=== PATIENT | female | born 1950 | race Hispanic/Latino ===

== ENCOUNTER 2016-09-15 10:48 | Observation (INO) | payer MEDICARE ==
[2016-09-15 10:49] VITALS: BMI 21.6
--- NOTE | 2016-09-15 11:18 | ED PDOC ---
Arrival/HPI - General Chief Complaint: Abnormal Labs Time Seen by Provider: 09/15/16 11:04 Historian: Patient - History of Present Illness Narrative History of Present Illness (Text): 09/15/16 11:17 A 66 year old female was sent into the emergency department by PMD for low potassium levels. Patient reports she received a call from her PMD's office this morning who instructed her to come in to the emergency room for further evaluation. Contrary to triages note patient denies any dizziness. She notes feeling dizzy at times but currently denies any complaints or discomfort. Patient denies any fever, chills, nausea, vomiting, diarrhea, abdominal pain, chest pain, shortness of breath or any other complaints. Time/Duration: Other (This morning) Context: Home Past Medical History - Provider Review Nursing Documentation Reviewed: Yes - Infectious Disease Hx of Infectious Diseases: None - Tetanus Immunization Tetanus Immunization: Unknown - Past Medical History Past Medical History: Non-Contributing - Cardiac Hx Cardiac Disorders: Yes Hx Hypertension: Yes - Pulmonary Hx Respiratory Disorders: No - Neurological Hx Neurological Disorder: No - HEENT Hx HEENT Disorder: Yes (BLURRY VISION) Hx Glaucoma: Yes (Right eye; family questions both?) - Renal Hx Renal Disorder: No - Endocrine/Metabolic Hx Endocrine Disorders: Yes Hx Diabetes Mellitus Type 2: Yes Hx Hypothyroidism: Yes - Hematological/Oncological Hx Blood Disorders: No Hx Cancer: No - Integumentary Hx Dermatological Disorder: No - Musculoskeletal/Rheumatological Hx Musculoskeletal Disorders: Yes Hx Falls: Yes Hx Unsteady Gait: Yes (CANE) Other/Comment: Last fell about 4 months ago. - Gastrointestinal Hx Gastrointestinal Disorders: Yes Hx Gastroesophageal Reflux: Yes - Genitourinary/Gynecological Hx Genitourinary Disorders: No - Psychiatric Hx Psychophysiologic Disorder: No Hx Substance Use: No - Past Surgical History Past Surgical History: No Previous - Surgical History Hx Section: Yes - Anesthesia Hx Anesthesia Reactions: No - Suicidal Assessment Feels Threatened In Home Enviroment: No Family/Social History - Physician Review Nursing Documentation Reviewed: Yes Family/Social History: No Known Family HX Smoking Status: Never Smoked Hx Alcohol Use: No Hx Substance Use: No Hx Substance Use Treatment: No Allergies/Home Meds Allergies/Adverse Reactions: Allergies No Known Allergies Allergy (Verified 09/15/16 10:57) Home Medications: Home Meds Medication Instructions Recorded Confirmed Levothyroxine [Synthroid] 50 mcg PO DAILY 03/09/15 03/13/15 Physical Exam - Physical Exam Narrative Physical Exam (Text): - Review of Systems Constitutional: Normal. absent: Fatigue, Weight Change, Fevers Eyes: Normal ENT: Normal Respiratory: Normal absent: SOB, Cough, Sputum Cardiovascular: Normal absent: Chest pain, Palpitations, Syncope Gastrointestinal: Normal absent: Abdominal pain, Diarrhea, Nausea, Vomiting Genitourinary: Normal. absent: Dysuria, Frequency, Hematuria Musculoskeletal: Normal. absent: Arthralgias, Back Pain, Neck Pain Skin: Normal Neurological: Normal absent: Focal Weakness Endocrine: Normal Hemo/Lymphatic: Normal Psychiatric: Normal - Physical exam Patient appears age appropriate, speaking full sentences without difficulty - Systems Exam Head: Present: Atraumatic, Normocephalic Pupils: Present: PERRL Extraocular Muscles: Present: EOMI Conjunctiva: Present: Normal Mouth: Present: Moist Mucous Membranes Neck: Present: Normal Range of Motion. No: MIDLINE TENDERNESS, Paraspinal Tenderness Respiratory/Chest: Present: Clear to Auscultation, Good Air Exchange. No: Respiratory Distress, Accessory Muscle Use, Tachypnic Cardiovascular: Present: Regular Rate and Rhythm, Normal S1, S2, Peripheral Pulses Present. No: Murmurs Abdomen: Present: Normal Bowel Sounds, No: Tenderness, Peritoneal Signs, Rebound, Guarding, Distention Back: Present: Normal Inspection. No: Midline Tenderness, Paraspinal Tenderness Upper Extremity: Present: Normal Inspection. No: Cyanosis, Edema Lower Extremity: Present: Normal Inspection. No: Edema Neurological: Present: GCS=15, Speech Normal, cranial nerves II through XII fully intact with no cerebellar abnormality, neuro-sensory fully intact. No focal neurological deficits. Skin: Present: Warm, Dry, Normal Color. No: Rashes Lymphatic: Present: OX3, NI, NC Psychiatric: Present: Alert, Oriented x 3, Normal Insight, Normal Concentration Vital Signs Reviewed: Yes Vital Signs Temp Pulse Resp BP Pulse Ox 09/15/16 13:05 53 L 18 150/81 100 09/15/16 12:17 53 L 18 140/71 100 09/15/16 11:57 51 L 18 84/37 L 100 09/15/16 10:57 98.9 F 61 18 98/41 L 100 Temperature: Afebrile Blood Pressure: Hypertensive Pulse: Regular Respiratory Rate: Normal Appearance: Positive for: Well-Appearing, Non-Toxic, Comfortable Pain Distress: None Mental Status: Positive for: Alert and Oriented X 3 Medical Decision Making ED Course and Treatment: 09/15/16 11:17 Impression: A 66 year old female sent in by PMD for low potassium levels. Patient denies any complaints. Physical exam unremarkable. Plan: -- Labs -- Reassess and disposition Progress Notes: 09/15/16 14:06 k 2.9, mg normal meds ordered pt in no distress dw dr. Galdamez, recommends admission for further w/u BP increased without intervention dw Dr. Fabby Napier, accepted pt to his service pt and aware of and agree with plan. EKG shows 52bpm, sinus melinda, irregular, no st-segment elevations. interpreted by me. - Lab Interpretations Lab Results: 09/15/16 11:15 09/15/16 11:55 Lab Results 09/15/16 11:55: Sodium 138, Potassium 2.9 L* D, Chloride 94 L, Carbon Dioxide 33 , Anion Gap 14, BUN 12, Creatinine 0.5, Est GFR ( Amer) > 60, Est GFR ( Non-Af Amer) > 60, Random Glucose 132 H, Calcium 9.1, Magnesium 1.7, Total Bilirubin 0.3, AST 20, ALT 19, Alkaline Phosphatase 75, Total Protein 7.7, Albumin 3.8, Globulin 3.9, Albumin/Globulin Ratio 1.0 L 09/15/16 11:15: WBC 3.9 L, RBC 4.37, Hgb 12.4, Hct 36.1, MCV 82.6, MCH 28.4, MCHC 34.3, RDW 12.1, Plt Count 224, MPV 9.3, Gran % 60.5, Lymph % (Auto) 30.9, [place] % (Auto) 6.8 H, Eos % (Auto) 0.8 L, Baso % (Auto) 1.0, Gran # 2.33, Lymph # 1.2, [place] # 0.3, Eos # 0.0, Baso # 0.04 I have reviewed the lab results: Yes - Medication Orders Current Medication Orders: Potassium Chloride (Potassium Chloride 20 Meq/100 Ml) 20 meq in 100 mls @ 50 mls/hr IVPB Q2H LAUREN Stop: 09/15/16 16:59 Last Admin: 09/15/16 13:16 Dose: 50 mls/hr Discontinued Medications Potassium Chloride (K-Dur 20 Meq Er Tab) 20 meq PO STAT STA Stop: 09/15/16 12:56 Last Admin: 09/15/16 13:16 Dose: 20 meq - Scribe Statement The provider has reviewed the documentation as recorded by the Scribe Fannie Robertson training under Miroslava De Provider Scribe Attestation: All medical record entries made by the Scribe were at my direction and personally dictated by me. I have reviewed the chart and agree that the record accurately reflects my personal performance of the history, physical exam, medical decision making, and the department course for this patient. I have also personally directed, reviewed, and agree with the discharge instructions and disposition. Disposition/Present on Arrival - Present on Arrival Any Indicators Present on Arrival: No History of DVT/PE: No History of Uncontrolled Diabetes: No Urinary Catheter: No History of Decub. Ulcer: No History Surgical Site Infection Following: None - Disposition Have Diagnosis and Disposition been Completed?: Yes Diagnosis: Hypokalemia Disposition: HOSPITALIZED Disposition Time: 14:06 Patient Plan: Observation Condition: STABLE Referrals: PCP,NO [Primary Care Provider] - Follow up with primary Forms: [employer] (Hungarian)
[2016-09-15 11:42] LABS: BASO # 0.04 K/mm3 (0.0-2.0); EOS % 0.8 % (1.5-5.0); GRAN # 2.33 (1.4-6.5); GRAN % 60.5 % (50.0-68.0); HEMOGLOBIN 12.4 gm/dL (12.0-16.0); LYMPH # 1.2 (1.2-3.4); LYMPH % 30.9 % (22.0-35.0); MEAN CELL VOLUME 82.6 fL (80.0-105.0); MEAN CORPUSCULAR HEMOGLOBIN 28.4 pg (25.0-35.0); MEAN CORPUSCULAR HGB CONC 34.3 g/dl (31.0-37.0); MEAN PLATELET VOLUME 9.3 fl (7.0-11.0); MONO # 0.3 (0.1-0.6); MONO % 6.8 % (1.0-6.0); PLATELET COUNT 224 10^3/uL (120.0-450.0); RBC 4.37 10^6/uL (3.5-6.1); RED CELL DISTRIBUTION WIDTH 12.1 % (11.5-14.5); WHITE BLOOD COUNT 3.9 10^3/ul (4.5-11.0)
[2016-09-15 12:43] LABS: ALBUMIN 3.8 g/dL (3.0-4.8); ALT/SGPT 19 U/L (7-56); AST/SGOT 20 U/L (15-39); BLOOD UREA NITROGEN 12 mg/dL (7-21); CALCIUM 9.1 mg/dL (8.4-10.5); GFR AFRICAN-AMERICAN > 60; GFR NON-AFRICAN AMERICAN > 60; MAGNESIUM 1.7 mg/dL (1.7-2.2)
[2016-09-15] MEDS ORDERED: Potassium Chloride 20 mEq ER Tab PO STA (12:55)
[2016-09-15] MEDS ORDERED: Morphine 4 mg/ml ISec IVP STA (14:53)
--- NOTE | 2016-09-15 15:24 | CARD ---
APPROVED REPORT EKG Measurement Heart [id number] <Conclusion> Sinus bradycardia with premature supraventricular complexes Otherwise normal ECG
[2016-09-15] MEDS ORDERED: Pneumococcal 23-Valent Vaccine IM ONE (17:53)
[2016-09-15] MEDS ORDERED: Potassium Chloride 20 mEq ER Tab PO ONE (20:15)
[2016-09-16 06:35] VITALS: RESP 18
[2016-09-16 07:42] LABS: MEAN CELL VOLUME 83.2 fL (80.0-105.0); MEAN CORPUSCULAR HGB CONC 33.6 g/dl (31.0-37.0); MEAN PLATELET VOLUME 9.1 fl (7.0-11.0); RBC 4.65 10^6/uL (3.5-6.1); RED CELL DISTRIBUTION WIDTH 12.4 % (11.5-14.5); WHITE BLOOD COUNT 4.3 10^3/ul (4.5-11.0)
[2016-09-16 08:02] LABS: ALBUMIN 4.1 g/dL (3.0-4.8); ALT/SGPT 23 U/L (7-56); AST/SGOT 23 U/L (15-39); BLOOD UREA NITROGEN 11 mg/dL (7-21); CALCIUM 9.3 mg/dL (8.4-10.5); GFR AFRICAN-AMERICAN > 60; GFR NON-AFRICAN AMERICAN > 60; MAGNESIUM 1.7 mg/dL (1.7-2.2)
[2016-09-16] MEDS ORDERED: Potassium Chloride 20 mEq ER Tab PO ONE (09:18)
[2016-09-16] MEDS ORDERED: Levothyroxine 50 MCG TAB PO SCH (10:00)
[2016-09-16 14:37] VITALS: BP 160/80; PULSE 65; TEMP 97.8; O2SAT 100
--- NOTE | 2016-09-16 20:18 | HP ---
HISTORY OF PRESENT ILLNESS: This is a 66-year-old woman who is coming to the hospital with complains of low potassium. She had seen her primary doctor Dr. Galdamez. She has been having low potassium. She denies any chest pain. No shortness of breath. No nausea, no vomiting. No fever, headaches or chills. No dysuria or frequency. She was given potassium in the ER. Last night she was given oral potassium and she had refused and looking at her potassium levels she has fairly normal potassium level over the last 2 years except in 08/2014 where her levels were mildly low. ALLERGIES: NO KNOWN DRUG ALLERGIES. HOME MEDICATIONS: Levothyroxine. PAST MEDICAL HISTORY: Hypothyroidism, glaucoma, diabetes type 2, dyslipidemia and hypertension. SOCIAL HISTORY: She denies smoking, drinking or drugs. In the past, she has been a smoker. FAMILY HISTORY: Noncontributory. PHYSICAL EXAMINATION: VITAL SIGNS: Temperature is 97.9, pulse of 47 to 55, blood pressure is 136/72, respirations 18, and O2 saturation 94%. Height 5 feet 9. Weight is 98 pounds. BMI is 14.5. GENERAL: The patient is lying in bed, flat, and in no apparent distress. HEAD AND NECK EXAM: Atraumatic, normocephalic. Conjunctivae are pink. Throat is clear and mouth with moist mucosa. Oropharynx is benign. EYES: Extraocular movements are intact. PERRLA. NECK: Supple. No JVD, thyromegaly, or adenopathy. No bruits. HEART: S1 and S2 regular rate and rhythm. No murmurs, rubs, or gallops. LUNGS: Clear to auscultation bilaterally. No wheezing, rales, or rhonchi appreciated. No retractions on exam. ABDOMEN: Soft, nontender, and nondistended. Bowel sounds are positive in all quadrants. No rebound. No hepatosplenomegaly. EXTREMITIES: No cyanosis, clubbing, or edema. NEUROLOGIC: No facial asymmetry. Tongue is midline. No uvula deviation. Power is 5/5 in upper extremity and 5/5 in lower extremity. Sensation is normal in upper extremities and lower extremities. PSYCHIATRIC: Awake, alert, oriented x3. No anxiety or depression symptoms. Good insight. Normal affect. GENITOURINARY: No CVA tenderness. VASCULAR: 2+ pulses in carotid and pedal pulses. SKIN: No erythema or abnormal nodules noted. SPINE: Normal curvature. LYMPHADENOPATHY: No anterior cervical or posterior cervical adenopathy. No inguinal adenopathy. LABORATORY DATA: Potassium is 2.9. EKG shows heart rate 52, sinus melinda, no ST changes. ASSESSMENT: 1. Hypokalemia. 2. Hypothyroidism. 3. Diabetes type 2. 4. Hypertension. PLAN: The patient is going to be given potassium placement as ordered. Urine studies have not been done. I did speak to the patient's nurse yesterday to do this urine studies. I spoke to the nurse again today. The patient was going to be given extra dose of potassium. She has no symptoms, I will discharge her home. I will follow up. She is going to be given potassium p.o. to take for the next 3 days with 40 mEq daily to normalized her potassium and follow up with Dr. Galdamez for repeat blood work. I do not suspect any renal issues as her kidney function is normal. She mostly likely has not been eating well and that can be a major region that potassium is low. Ramy Napier MD
== END 2016-09-16 14:09 | disposition home or self-care (01) ==
LOC: ED 10:48 → ERH 14:13 → INTOOBSV 14:13 → ERH 17:41 → 2RSO 18:52
PROVIDERS: ADMIT Internal Medicine Nephrology; ATTEND Internal Medicine Nephrology
DX: E87.6 Hypokalemia (principal); E03.9 Hypothyroidism, unspecified; E11.9 Type 2 diabetes mellitus without complications; E78.5 Hyperlipidemia, unspecified; H40.9 Unspecified glaucoma; I10 Essential (primary) hypertension; K21.9 Gastro-esophageal reflux disease without esophagitis; Z87.891 Personal history of nicotine dependence; H53.8 Other visual disturbances; R26.81 Unsteadiness on feet; R40.2412 Glasgow coma scale score 13-15, at arrival to emergency department; Z68.1 Body mass index [BMI] 19.9 or less, adult
CPT/HCPCS: 36415; 80053; 82948; 83735; 85025; 85027; 93005; 99285; G0378; J3480

== ENCOUNTER 2016-09-20 10:21 | Inpatient (IN) | payer MEDICARE, OTHER ==
[2016-09-20 10:35] VITALS: BMI 20.5
--- NOTE | 2016-09-20 11:13 | ED PDOC ---
Arrival/HPI - General Chief Complaint: Weakness/Neurological Deficit Time Seen by Provider: 09/20/16 10:26 Historian: Spouse - History of Present Illness Narrative History of Present Illness (Text): 09/20/16 10:53 A 66 year old female, whose past medical history includes diabetes mellitus, hypertension, hyperlipidemia, hypothyroidism, is brought in by her to the emergency department complaining of altered mental status since this morning. states, via Azeri balloon dipper:[id number], that he tried waking the patient up to take her medication and she would not move or answers questions. He states patient was behaving at baseline and able to ambulate today at 06:00. states this occurs very often, almost every morning. Patient has been seen in the Emergency department for similar symptoms in the past. Limited HPI and ROS. PMD: Dr. Galdamez Time/Duration: Other (In the morning earlier today) Symptom Onset: Sudden Symptom Course: Unchanged Activities at Onset: Rest, Light Context: Home Past Medical History - Provider Review Nursing Documentation Reviewed: Yes - Infectious Disease Hx of Infectious Diseases: None - Tetanus Immunization Tetanus Immunization: Unknown - Past Medical History Past Medical History: Non-Contributing - Cardiac Hx Cardiac Disorders: Yes Hx Hypertension: Yes - Pulmonary Hx Respiratory Disorders: No - Neurological Hx Neurological Disorder: No - HEENT Hx HEENT Disorder: Yes (BLURRY VISION) Hx Glaucoma: Yes (Right eye; family questions both?) - Renal Hx Renal Disorder: No - Endocrine/Metabolic Hx Endocrine Disorders: Yes Hx Diabetes Mellitus Type 2: Yes Hx Hypothyroidism: Yes - Hematological/Oncological Hx Blood Disorders: No Hx Cancer: No - Integumentary Hx Dermatological Disorder: Yes Other/Comment: scratch cote and scabs multiple skin discolorations to right upper and mid back and right arm c/o itchy skin, thick hard toenails, brown pigmentation to forehead and cheeks - Musculoskeletal/Rheumatological Hx Falls: Yes (past) - Gastrointestinal Hx Gastrointestinal Disorders: Yes Hx Gastroesophageal Reflux: Yes - Genitourinary/Gynecological Hx Genitourinary Disorders: No - Psychiatric Hx Bipolar Disorder: Yes Hx Depression: Yes Hx Substance Use: No - Past Surgical History Past Surgical History: No Previous - Surgical History Hx Section: Yes - Anesthesia Hx Anesthesia Reactions: No - Suicidal Assessment Feels Threatened In Home Enviroment: No Family/Social History - Physician Review Nursing Documentation Reviewed: Yes Family/Social History: No Known Family HX Smoking Status: Never Smoked Hx Alcohol Use: No Hx Substance Use: No Hx Substance Use Treatment: No Allergies/Home Meds Allergies/Adverse Reactions: Allergies No Known Allergies Allergy (Verified 09/20/16 10:40) Home Medications: Home Meds Medication Instructions Recorded Confirmed Levothyroxine [Synthroid] 50 mcg PO DAILY 03/09/15 09/20/16 Ergocalciferol (Vitamin D2) 50,000 unit PO QWK 09/20/16 09/20/16 [Vitamin D2] Potassium Chloride [Klor-Con M20] 40 meq PO DAILY 09/20/16 09/20/16 Review of Systems - Review of Systems Systems not reviewed;Unavailable: Altered Mental Status Physical Exam Vital Signs Reviewed: Yes Vital Signs Temp Pulse Resp BP Pulse Ox 09/20/16 10:33 98.7 F 67 19 173/83 H 100 Temperature: Afebrile Blood Pressure: Normal Pulse: Regular Respiratory Rate: Normal Appearance: Positive for: Well-Appearing, Non-Toxic, Comfortable Pain Distress: None Mental Status: Positive for: other (Not unresponsive, responsive to verbal stimuli) - Systems Exam Head: Present: Atraumatic, Normocephalic Pupils: Present: PERRL (PERRL, 1mm) Extroacular Muscles: Present: EOMI Conjunctiva: Present: Normal Mouth: Present: Moist Mucous Membranes Neck: Present: Normal Range of Motion Respiratory/Chest: Present: Clear to Auscultation, Good Air Exchange. No: Respiratory Distress, Accessory Muscle Use Cardiovascular: Present: Regular Rate and Rhythm, Normal S1, S2. No: Murmurs Abdomen: Present: Normal Bowel Sounds. No: Tenderness, Distention, Peritoneal Signs Back: Present: Normal Inspection Upper Extremity: Present: Normal Inspection. No: Cyanosis, Edema Lower Extremity: Present: Normal Inspection. No: Edema Neurological: Present: GCS=15, CN II-XII Intact Skin: Present: Warm, Dry, Normal Color. No: Rashes Psychiatric: Present: Other (Not unresponsive, responsive to verbal stimuli) Medical Decision Making ED Course and Treatment: 09/20/16 11:16 Impression: 66 year old female with altered mental status. Physical exam shows pupils reactive 1 mm; not unresponsive, responsive to painful stimuli, non -verbal. Differential Diagnosis included but are not limited to: Electrolyte abnormality vs. Psych/Locked-in syndrome vs. CAD Plan: -- EKG -- Brain CT -- Labs -- Blood culture -- Urine culture -- Urinalysis -- Reassess and disposition Prior Visits: Notes and results from previous visits were reviewed. Patient was last seen in the emergency department on 09/15/2016 for low potassium levels. Patient was admitted. Progress Notes: 09/20/16 11:22 Patient has woken up, states she has to urinate. Complaining of abdominal pain but will not answer anymore questions. Report Date : 09/20/2016 11:27:29 PROCEDURE: CT HEAD WITHOUT CONTRAST. Dictator : Celeste Hoover V. IMPRESSION: No interval intracranial hemorrhage mass effect or edema noted. Interval right ethmoidal sinus inflammatory changes - Lab Interpretations Lab Results: Lab Results 09/20/16 11:24: Urine Opiates Screen Negative, Urine Methadone Screen Negative, Ur Barbiturates Screen Negative, Ur Phencyclidine Scrn Negative, Ur Amphetamines Screen Negative, U Benzodiazepines Scrn Negative, U Oth Cocaine Metabols Negative, U Cannabinoids Screen Negative 09/20/16 11:24: Urine Color Straw, Urine Appearance Clear, Urine pH 6.5, Ur Specific [place] <= 1.005, Urine Protein Negative, Urine Glucose (UA) Negative, Urine Ketones Negative, Urine Blood Trace-lysed H, Urine Nitrate Negative, Urine Bilirubin Negative, Urine Urobilinogen 0.2, Ur Leukocyte Esterase Negative , Urine RBC Negative, Urine WBC Negative I have reviewed the lab results: Yes - RAD Interpretation Radiology Orders: 09/20/16 10:53 Brain [HEAD W/O CONTRAST] [CT] Stat - Medication Orders Current Medication Orders: Discontinued Medications Al Hydrox/Mg Hydrox/Simethicone (Maalox Plus 30 Ml) 30 ml PO STAT STA Stop: 09/20/16 13:49 Last Admin: 09/20/16 15:07 Dose: 30 ml Famotidine (Pepcid 20mg/50ml Premix) 20 mg in 50 mls @ 100 mls/hr IVPB STAT STA Stop: 09/20/16 12:03 Last Admin: 09/20/16 11:48 Dose: 100 mls/hr Morphine Sulfate (Morphine) 2 mg IVP STAT STA Stop: 09/20/16 13:49 Last Admin: 09/20/16 15:07 Dose: 2 mg Morphine Sulfate (Morphine) 4 mg IVP STAT STA Stop: 09/20/16 16:40 Ondansetron HCl (Zofran Inj) 4 mg IVP STAT STA Stop: 09/20/16 11:35 Last Admin: 09/20/16 11:48 Dose: 4 mg ED OBSERVATION Date of observation admission: 09/20/16 Time of observation admission: 11:30 - Observation admission statement Patient is being placed in observation because:: Altered mental status and abdominal pain. - Goals of Observation Goals of observation are:: Monitor and treat patient's symptoms - Progress Note Progress Note: 09/20/16 11:30 Patient brought in for altered mental status. Patient began complaining of abdominal pain. 09/20/16 13:50 Trailer Mechanic [id number] via audio tv. Patient is now AAOx3. She states that she feels like she has to burp but can't and has epigatric abdominal pain. No fever. She doesn't want to discuss why she couldn't talk in the morning. No back pain. As per she gets this abdominal pain all the time. Morphine IV and Maalox ordered. 09/20/16 15:39 EKG: NSR at [address] No [address] elevation. Nl intervals. 09/20/16 16:41 Patient continues to feel a gastric reflux burning feeling she states. Abdomen soft and not tender. Morphine ordered. Discussed case with Dr. Castellanos who will place her under his service. Case discussed with [facility] who will not admit her for Psych. - Scribe Statement The provider has reviewed the documentation as recorded by the Raul Lo Provider Scribe Attestation: All medical record entries made by the Susanaibtyson were at my direction and personally dictated by me. I have reviewed the chart and agree that the record accurately reflects my personal performance of the history, physical exam, medical decision making, and the department course for this patient. I have also personally directed, reviewed, and agree with the discharge instructions and disposition. Disposition/Present on Arrival - Present on Arrival Any Indicators Present on Arrival: No History of DVT/PE: No History of Uncontrolled Diabetes: No Urinary Catheter: No History of Decub. Ulcer: No History Surgical Site Infection Following: None - Disposition Have Diagnosis and Disposition been Completed?: Yes Diagnosis: Gastroparesis Disposition: HOSPITALIZED Disposition Time: 11:30 Patient Plan: Observation Condition: FAIR
--- NOTE | 2016-09-20 11:28 | CT ---
PROCEDURE: CT HEAD WITHOUT CONTRAST. HISTORY: ams r/o ich COMPARISON: CT head 07/23/2015 TECHNIQUE: Axial computed tomography images were obtained through the head/brain without intravenous contrast. Radiation dose: Total exam DLP = 689 mGy-cm. This CT exam was performed using one or more of the following dose reduction techniques: Automated exposure control, adjustment of the mA and/or kV according to patient size, and/or use of iterative reconstruction technique. FINDINGS: HEMORRHAGE: No intracranial hemorrhage. BRAIN: No mass effect or edema. The mild prominence to the cerebral sulci of ventricles consistent with generalized cerebral atrophy is similar in appearance. A tiny lacunar infarct left basal ganglionic is similar. VENTRICLES: Unremarkable. No hydrocephalus. CALVARIUM: Unremarkable. PARANASAL SINUSES: Interval increased right mid and anterior ethmoidal sinus inflammatory changes. MASTOID AIR CELLS: The prior poorly aerated -mostly sclerotic appearing mastoid air cells appear similar OTHER FINDINGS: None. IMPRESSION: No interval intracranial hemorrhage mass effect or edema noted Interval right ethmoidal sinus inflammatory changes
[2016-09-20 11:31] LABS: PH,URINE 6.5 (4.7-8.0); URINE BILIRUBIN NEGATIVE (NEGATIVE); URINE BLOOD TRACE-LYSED (NEGATIVE); URINE GLUCOSE (UA) NEGATIVE (NEGATIVE); URINE LEUKOCYTE ESTERASE NEGATIVE Leu/uL (NEGATIVE); URINE NITRATE NEGATIVE (NEGATIVE); URINE PROTEIN NEGATIVE mg/dL (<30 mg/dL); URINE UROBILINOGEN 0.2 E.U./dL (<1 E.U./dL)
[2016-09-20] MEDS ORDERED: Famotidine 20mg/50ml 20 MG/50 ML BAG IVPB STA (11:34)
[2016-09-20 11:35] LABS: URINE APPEARANCE CLEAR (CLEAR); URINE COLOR STRAW (YELLOW)
[2016-09-20 11:48] LABS: URINE RBC NEGATIVE /hpf (0-2); URINE WBC NEGATIVE /hpf (0-6)
[2016-09-20 11:50] LABS: BARBITURATES, UR NEGATIVE (NEGATIVE); BENZODIAZEPINES, UR NEGATIVE (NEGATIVE); OPIATES, UR NEGATIVE (NEGATIVE); PHENCYCLIDINE, UR NEGATIVE (NEGATIVE)
[2016-09-20 11:51] LABS: BASO # 0.05 K/mm3 (0.0-2.0); BASO % 1.3 % (0.0-3.0); EOS # 0.1 (0.0-0.7); EOS % 1.6 % (1.5-5.0); GRAN # 2.47 (1.4-6.5); GRAN % 64.3 % (50.0-68.0); HEMOGLOBIN 12.8 gm/dL (12.0-16.0); MEAN CELL VOLUME 84.4 fL (80.0-105.0); MEAN CORPUSCULAR HEMOGLOBIN 28.1 pg (25.0-35.0); MEAN CORPUSCULAR HGB CONC 33.3 g/dl (31.0-37.0); MEAN PLATELET VOLUME 11.5 fl (7.0-11.0); MONO # 0.3 (0.1-0.6); MONO % 7.8 % (1.0-6.0); PLATELET COUNT 200 10^3/uL (120.0-450.0); RBC 4.55 10^6/uL (3.5-6.1); RED CELL DISTRIBUTION WIDTH 12.4 % (11.5-14.5); WHITE BLOOD COUNT 3.8 10^3/ul (4.5-11.0)
[2016-09-20 12:00] LABS: SALICYLATE < 1 mg/dL (2.0-20.0)
[2016-09-20 12:29] LABS: ACETAMINOPHEN < 10.0 ug/ml (10.0-20.0)
[2016-09-20] MEDS ORDERED: Alum-Mag Hydrox-Simethicone Susp (30 mL) PO STA (13:48)
[2016-09-20] MEDS ORDERED: Morphine 2 mg/ml ISec IVP STA (13:48)
[2016-09-20 15:05] LABS: VENOUS BLOOD GAS BASE EXCESS 2.4 mmol/L (0.0-2.0); VENOUS BLOOD GAS PO2 36 mm/Hg (30-55); VENOUS BLOOD PH 7.28 (7.32-7.43)
[2016-09-20 15:06] LABS: ALB/GLOB RATIO 1.1 (1.1-1.8); ALBUMIN 4.6 g/dL (3.0-4.8); ALT/SGPT 22 U/L (7-56); AST/SGOT 24 U/L (15-39); BLOOD UREA NITROGEN 11 mg/dL (7-21); CALCIUM 9.8 mg/dL (8.4-10.5); GFR AFRICAN-AMERICAN > 60; GFR NON-AFRICAN AMERICAN > 60; LIPASE 74 U/L (23-300); MAGNESIUM 1.6 mg/dL (1.7-2.2)
[2016-09-20 15:07] LABS: INR 1.08 (0.93-1.08); PARTIAL THROMBOPLASTIN TIME 28.7 Seconds (23.7-30.8); PROTHROMBIN TIME 11.7 Seconds (9.9-11.8)
[2016-09-20 15:17] LABS: TROPONIN I < 0.01 ng/mL
--- NOTE | 2016-09-20 15:31 | CARD ---
APPROVED REPORT EKG Measurement Heart [id number] SC 170P [id number] <Conclusion> Sinus rhythm with premature atrial complex Otherwise normal ECG
--- NOTE | 2016-09-20 15:56 | RAD ---
HISTORY: abd pain COMPARISON: 07/23/2015 FINDINGS: LUNGS: No active pulmonary disease. Study slightly rotated towards the left PLEURA: No significant pleural effusion identified, no pneumothorax apparent. CARDIOVASCULAR: Normal. OSSEOUS STRUCTURES: Thoracic spondylosis VISUALIZED UPPER ABDOMEN: Normal. OTHER FINDINGS: None. IMPRESSION: No active disease. No interval pathology noted
[2016-09-20] MEDS ORDERED: Morphine 4 mg/ml ISec IVP STA (16:39)
--- NOTE | 2016-09-20 18:08 | CT ---
PROCEDURE: CT Abdomen and Pelvis without Oral or IV contrast. HISTORY: abd pain COMPARISON: CT abdomen and pelvis with oral and IV contrast performed 10/27/15 TECHNIQUE: Contiguous axial images of the abdomen and pelvis. No oral or IV contrast administered. Coronal and Sagittal reformats generated and reviewed. Radiation dose: Total exam DLP = 194.90 mGy-cm. This CT exam was performed using one or more of the following dose reduction techniques: Automated exposure control, adjustment of the mA and/or kV according to patient size, and/or use of iterative reconstruction technique. FINDINGS: There is limited evaluation of the solid organs without the administration of IV contrast. LOWER THORAX: Scattered emphysematous changes. No visible consolidation, pleural effusion, or pneumothorax. Partially imaged trace pericardial effusion. LIVER: Unremarkable unenhanced appearance. GALLBLADDER AND BILE DUCTS: Unremarkable unenhanced appearance. PANCREAS: Unremarkable unenhanced appearance. SPLEEN: Unremarkable unenhanced appearance. ADRENALS: Unremarkable unenhanced appearance. KIDNEYS AND URETERS: No hydronephrosis or obstructing renal calculus. BLADDER: Distention of the urinary bladder. REPRODUCTIVE: Uterus is present. APPENDIX: The appendix appears within normal limits of caliber. No secondary signs of acute appendicitis. BOWEL: The stomach is nondistended. Lack of oral contrast limits evaluation for bowel pathology. The bowel loops appear within normal limits of caliber without evidence of intestinal obstruction. Moderate constipation. PERITONEUM: No significant free fluid. No definite free air. LYMPH NODES: No bulky lymphadenopathy identified. VASCULATURE: Atherosclerotic calcifications of the aorta. No aortic aneurysm. BONES: Degenerative changes. OTHER FINDINGS: None. IMPRESSION: Moderate constipation. Distended urinary bladder. Mild scattered emphysematous changes. Partially imaged trace pericardial effusion.
[2016-09-20] MEDS ORDERED: Pneumococcal 23-Valent Vaccine IM ONE (20:15)
[2016-09-20] MEDS: POLYETHYLENE GLYCOL 3350 17 GM/Dose PACKET PO SCH (21:49)
--- NOTE | 2016-09-21 07:15 | CP.PCM.HP ---
<Siria Mcclendon - Last Filed: 09/21/16 09:20> History of Present Illness - History of Present Illness History of Present Illness: CC: Not waking up Patient alka 66 y/o with pmh of htn, DM, hypothyroidism, major depressive disorder, anxiety brought in by her secondary to difficulty arousing the patient in the morning. Patient was at [facility] and was recently discharged after being treated for hypokalemia. Patient's spouse is currently not at beside, however patient is more awake and sitting at the edge of the bed. Patient states her brought her in because her was having difficulty waking her up in the morning. Patient states she was too tired to wake up. Patient is complaining of indigestion, and is complaining of dizziness. Patient admits to decreased in appetite and weight loss. Patient denies cp, sob, n.v.d, admits to abdominal pain, but denies dysurea. PMH: HTN, HLD, Hypothyroidism, major depressive disorder, anxiety. PSH: Denies Social: lives with spouse, denies alcohol, tobacco or illicit drug use. Present on Admission - Present on Admission Any Indicators Present on Admission: No History of DVT/PE: No History of Uncontrolled Diabetes: No Urinary Catheter: No Decubitus Ulcer Present: No Review of Systems - Review of Systems All systems: reviewed and no additional remarkable complaints except Review of Systems: 12 point ROS reviewed all negative except as stated in HPI. Past Patient History - Infectious Disease Hx of Infectious Diseases: None - Tetanus Immunizations Tetanus Immunization: Unknown - Past Social History Smoking Status: Never Smoked Alcohol: None Drugs: Denies Home Situation {Lives}: With Family - CARDIAC Hx Cardiac Disorders: Yes (bradycardia) Hx Hypercholesterolemia: Yes Hx Hypertension: Yes - PULMONARY Hx Respiratory Disorders: No - NEUROLOGICAL Hx Neurological Disorder: No - HEENT Hx HEENT Problems: Yes (BLURRY VISION) Hx Glaucoma: Yes (Right eye; family questions both?) - RENAL Hx Chronic Kidney Disease: No - ENDOCRINE/METABOLIC Hx Endocrine Disorders: Yes Hx Diabetes Mellitus Type 2: Yes Hx Hypothyroidism: Yes - HEMATOLOGICAL/ONCOLOGICAL Hx Blood Disorders: (hypokalemia) Hx Cancer: No - INTEGUMENTARY Hx Dermatological Problems: Yes Other/Comment: scratch cote and scabs multiple skin discolorations to right upper and mid back and right arm c/o itchy skin, thick hard toenails, brown pigmentation to forehead and cheeks - MUSCULOSKELETAL/RHEUMATOLOGICAL Hx Falls: No - GASTROINTESTINAL Hx Gastrointestinal Disorders: Yes Hx Gastroesophageal Reflux: Yes - GENITOURINARY/GYNECOLOGICAL Hx Genitourinary Disorders: No - PSYCHIATRIC Hx Substance Use: No - SURGICAL HISTORY Hx Surgeries: Yes (c section x2) - ANESTHESIA Hx Anesthesia Reactions: No Meds Allergies/Adverse Reactions: Allergies Allergy/AdvReac Type Severity Reaction Status Date / Time No Known Allergies Allergy Verified 09/20/16 10:40 Physical Exam - Constitutional Appears: No Acute Distress, Confused, Cachectic, Chronically Ill - Head Exam Head Exam: ATRAUMATIC, NORMAL INSPECTION, NORMOCEPHALIC - Eye Exam Eye Exam: EOMI, Normal appearance, PERRL. absent: Scleral icterus Pupil Exam: NORMAL ACCOMODATION, PERRL - ENT Exam ENT Exam: Mucous Membranes Dry - Neck Exam Neck exam: Positive for: Normal Inspection - Respiratory Exam Respiratory Exam: Clear to Auscultation Bilateral, NORMAL BREATHING PATTERN. absent: Rales, Rhonchi, Wheezes, Respiratory Distress, Stridor - Cardiovascular Exam Cardiovascular Exam: REGULAR RHYTHM, RRR, +S1, +S2. absent: Systolic Murmur - GI/Abdominal Exam GI & Abdominal Exam: Normal Bowel Sounds, Soft. absent: Distended, Firm, Rigid , Tenderness - Extremities Exam Extremities exam: Positive for: normal inspection. Negative for: pedal edema - Back Exam Back exam: NORMAL INSPECTION - Neurological Exam Neurological exam: Alert, Oriented x3 - Psychiatric Exam Psychiatric exam: Depressed Additional comments: Patient with labile emotion, crying when I approached the patient. - Skin Skin Exam: Dry, Warm Results - Vital Signs Recent Vital Signs: Last Vital Signs Temp 98.7 F 09/20/16 20:04 Pulse 67 09/20/16 20:04 Resp 19 09/20/16 20:04 BP 173/83 H 09/20/16 20:04 Pulse Ox 100 09/20/16 17:59 - Labs Result Diagrams: 09/20/16 11:30 09/20/16 14:50 Labs: Laboratory Results - last 24 hr 09/20/16 09/20/16 09/20/16 11:52 14:50 14:50 PT 11.7 INR 1.08 APTT 28.7 pO2 VBG pH VBG pCO2 VBG HCO3 VBG Total CO2 VBG O2 Sat (Calc) VBG Base Excess VBG Potassium Glucose Lactate FiO2 Sodium 137 Potassium 4.5 Chloride 95 L Carbon Dioxide 31 Anion Gap 16 BUN 11 Creatinine 0.5 Est GFR ( Amer) > 60 Est GFR (Non-Af Amer) > 60 POC Glucose (mg/dL) 141 H Random Glucose 128 H Calcium 9.8 Phosphorus 3.5 Magnesium 1.6 L Total Bilirubin 0.4 AST 24 ALT 22 Alkaline Phosphatase 89 Lactate Dehydrogenase 413 Total Creatine Kinase 64 Troponin I < 0.01 Total Protein 8.9 H Albumin 4.6 Globulin 4.3 Albumin/Globulin Ratio 1.1 Lipase 74 Venous Blood Potassium 09/20/16 15:00 PT INR APTT pO2 36 VBG pH 7.28 L VBG pCO2 66.0 H* VBG HCO3 31.0 H VBG Total CO2 33.0 H VBG O2 Sat (Calc) 68.7 H VBG Base Excess 2.4 H VBG Potassium 4.9 Glucose 131 H Lactate 1.5 FiO2 21.0 Sodium 148.0 Potassium Chloride 89.0 L Carbon Dioxide Anion Gap BUN Creatinine Est GFR ( Amer) Est GFR (Non-Af Amer) POC Glucose (mg/dL) Random Glucose Calcium Phosphorus Magnesium Total Bilirubin AST ALT Alkaline Phosphatase Lactate Dehydrogenase Total Creatine Kinase Troponin I Total Protein Albumin Globulin Albumin/Globulin Ratio Lipase Venous Blood Potassium 4.9 Assessment & Plan - Assessment and Plan (Free Text) Assessment: 1) 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 3) GERD 4) Constipation 5) Uncontrolled DM with episode of hypoglycemia 6) htn 7) HLD 8) Major depression/Anxiety Plan: CT head with no acute findings, CT abdo/pelvis with constipation, mild emphysema and distended bladder. Patient is more awake this AM, but with very labile emotion, h/o depression/anxiety noted, will need psych evaluation. Gi is consulted for chronic gerd despite chronic ppi use. Will hold metformin due to episodes of hypoglycemia, will obtain hgbA1C. ISS, and fingersticks AC/HS, mod carb controlled diet for DM. Patient with labile BP, will monitor off of meds. Will continue synthroid for hypothyroidism. Magnesium is being repleted. On miralax for constipation. On Pepcid for gerd. SCDs for DVT prophylaxis. Patient seen, examined, and case discussed with Dr Napier. - Date & Time Date: 09/21/16 Time: 07:40 <Ramy Napier S - Last Filed: 09/21/16 17:59> Results - Vital Signs Recent Vital Signs: Last Vital Signs Temp 97.3 F L 09/21/16 16:30 Pulse 57 L 09/21/16 16:30 Resp 20 09/21/16 16:30 BP 101/46 L 09/21/16 16:30 Pulse Ox 97 09/21/16 16:30 - Labs Result Diagrams: 09/20/16 11:30 09/20/16 14:50 Labs: Laboratory Results - last 24 hr 09/21/16 09/21/16 09/21/16 08:13 08:40 09:31 POC Glucose (mg/dL) 64 L 102 Hemoglobin A1c 6.1 Assessment & Plan - Assessment and Plan (Free Text) Plan: Pt seen and examined. Resident note reviewed and agree with. Will get psych evaluation. Old records and meds reviewed. Tried to call spouse and not able to speak to him and not able to leave a message. Will get GI evaluation as pt complains of acid reflux.
[2016-09-21] MEDS ORDERED: Insulin Lispro (humaLOG) LOW Coverage SC SCH (07:30)
[2016-09-21] MEDS: Levothyroxine 50 MCG TAB PO SCH (08:25)
[2016-09-21] MEDS: Magnesium Oxide 400 mg Tab UD PO SCH ×5 (09:34→17:11)
[2016-09-21] MEDS: POLYETHYLENE GLYCOL 3350 17 GM/Dose PACKET PO SCH ×2 (09:34→17:11)
[2016-09-21] MEDS: Insulin Reg-LOW-Coverage SC SCH ×2 (12:06→17:04)
--- NOTE | 2016-09-21 13:51 | CP.PCM.CON ---
History of Present Illness - History of Present Illness History of Present Illness: Seen and examined at bedside earlier today, request for consult is for GERD. HPI : This is a 66 year old female with a history of HTN, DM, GERD, major depressive disorder brought to the ER for difficulty in arousing the patient. The was not able to arouse the patient in the morning and brought in for further evaluation. The patient reports that she was tired at the time. Patient during admission complain of indigestion, decrease appetite. No N/V or abdominal pain. The patient last endoscopy was 03/[address] Bates for evaluation of Anemia and had no acute findings, biopsy was obtained to r/o H pylori and that was negative as well as for intestinal metaplasia. Also back in 08/2014 she c/o of dysphagia and esophagogram was negative. Denies any current dysphagia. Unsure of having a colonoscopy. She had a ct scan of the head and that was negative for hemorrhage or infarction. Ct scan of the A&P and that revealed moderate constipation, distend urinary blader and emphysematous changes. PMH: GERD, HTN, DM, Hypothyroidism, Major depression, Anxiety PSH: egd 03/2014, otherwise denies cardiac or abdominal sx Allergies: NKDA MEDS: reviewed as per APR FHX: noncontributory at this time ROS: systems reviewed with positive findings, see HPI Past Patient History - Infectious Disease Hx of Infectious Diseases: None - Tetanus Immunizations Tetanus Immunization: Unknown - Past Social History Smoking Status: Never Smoked Alcohol: None Drugs: Denies Home Situation {Lives}: With Family - CARDIAC Hx Cardiac Disorders: Yes (bradycardia) Hx Hypercholesterolemia: Yes Hx Hypertension: Yes - PULMONARY Hx Respiratory Disorders: No - NEUROLOGICAL Hx Neurological Disorder: No - HEENT Hx HEENT Problems: Yes (BLURRY VISION) Hx Glaucoma: Yes (Right eye; family questions both?) - RENAL Hx Chronic Kidney Disease: No - ENDOCRINE/METABOLIC Hx Endocrine Disorders: Yes Hx Diabetes Mellitus Type 2: Yes Hx Hypothyroidism: Yes - HEMATOLOGICAL/ONCOLOGICAL Hx Blood Disorders: (hypokalemia) Hx Cancer: No - INTEGUMENTARY Hx Dermatological Problems: Yes Other/Comment: scratch cote and scabs multiple skin discolorations to right upper and mid back and right arm c/o itchy skin, thick hard toenails, brown pigmentation to forehead and cheeks - MUSCULOSKELETAL/RHEUMATOLOGICAL Hx Falls: No - GASTROINTESTINAL Hx Gastrointestinal Disorders: Yes Hx Gastroesophageal Reflux: Yes - GENITOURINARY/GYNECOLOGICAL Hx Genitourinary Disorders: No - PSYCHIATRIC Hx Substance Use: No - SURGICAL HISTORY Hx Surgeries: Yes (c section x2) - ANESTHESIA Hx Anesthesia Reactions: No Meds Allergies/Adverse Reactions: Allergies Allergy/AdvReac Type Severity Reaction Status Date / Time No Known Allergies Allergy Verified 09/20/16 10:40 - Medications Medications: Current Medications Famotidine (Pepcid) 40 mg PO HS LAUREN Insulin Human Regular (Humulin R Low) 0 units SC ACHS LAUREN PRN Reason: Protocol Last Admin: 09/21/16 12:06 Dose: Not Given Levothyroxine Sodium (Synthroid) 50 mcg PO ACB [facility] Last Admin: 09/21/16 08:25 Dose: 50 mcg Magnesium Oxide (Mag-Ox) 400 mg PO TID [facility] Last Admin: 09/21/16 09:34 Dose: 400 mg Polyethylene Glycol (Miralax) 17 gm PO BID [facility] Last Admin: 09/21/16 09:34 Dose: 17 gm Physical Exam - Constitutional Appears: No Acute Distress, Cachectic - Head Exam Head Exam: NORMAL INSPECTION - Eye Exam Eye Exam: Normal appearance. absent: Scleral icterus - ENT Exam ENT Exam: Mucous Membranes Moist - Neck Exam Neck exam: Positive for: Normal Inspection - Respiratory Exam Respiratory Exam: Decreased Breath Sounds, Rhonchi, NORMAL BREATHING PATTERN. absent: Respiratory Distress - Cardiovascular Exam Cardiovascular Exam: +S1, +S2 - GI/Abdominal Exam GI & Abdominal Exam: Normal Bowel Sounds, Soft. absent: Guarding, Organomegaly , Rebound, Tenderness - Extremities Exam Extremities exam: Positive for: pedal pulses present. Negative for: calf tenderness, pedal edema - Neurological Exam Neurological exam: Alert, Oriented x3 - Skin Skin Exam: Dry, Warm Results - Vital Signs Recent Vital Signs: Last Vital Signs Temp 97.7 F 09/21/16 07:51 Pulse 57 L 09/21/16 07:51 Resp 20 09/21/16 07:51 BP 152/91 H 09/21/16 08:22 Pulse Ox 97 09/21/16 07:51 - Labs Result Diagrams: 09/20/16 11:30 09/20/16 14:50 Labs: Laboratory Results - last 24 hr 09/20/16 09/20/16 09/20/16 14:50 14:50 15:00 PT 11.7 INR 1.08 APTT 28.7 pO2 36 VBG pH 7.28 L VBG pCO2 66.0 H* VBG HCO3 31.0 H VBG Total CO2 33.0 H VBG O2 Sat (Calc) 68.7 H VBG Base Excess 2.4 H VBG Potassium 4.9 Glucose 131 H Lactate 1.5 FiO2 21.0 Sodium 137 148.0 Potassium 4.5 Chloride 95 L 89.0 L Carbon Dioxide 31 Anion Gap 16 BUN 11 Creatinine 0.5 Est GFR ( Amer) > 60 Est GFR (Non-Af Amer) > 60 POC Glucose (mg/dL) Random Glucose 128 H Calcium 9.8 Phosphorus 3.5 Magnesium 1.6 L Total Bilirubin 0.4 AST 24 ALT 22 Alkaline Phosphatase 89 Lactate Dehydrogenase 413 Total Creatine Kinase 64 Troponin I < 0.01 Total Protein 8.9 H Albumin 4.6 Globulin 4.3 Albumin/Globulin Ratio 1.1 Lipase 74 Venous Blood Potassium 4.9 09/21/16 09/21/16 08:13 08:40 PT INR APTT pO2 VBG pH VBG pCO2 VBG HCO3 VBG Total CO2 VBG O2 Sat (Calc) VBG Base Excess VBG Potassium Glucose Lactate FiO2 Sodium Potassium Chloride Carbon Dioxide Anion Gap BUN Creatinine Est GFR ( Amer) Est GFR (Non-Af Amer) POC Glucose (mg/dL) 64 L 102 Random Glucose Calcium Phosphorus Magnesium Total Bilirubin AST ALT Alkaline Phosphatase Lactate Dehydrogenase Total Creatine Kinase Troponin I Total Protein Albumin Globulin Albumin/Globulin Ratio Lipase Venous Blood Potassium Assessment & Plan - Assessment and Plan (Free Text) Assessment: ASSESSMENT: Altered Mental Status Chronic GERD Weight Loss Major depression Hypothyroidism HTN Constipation PLAN: change Pepcid to protonix 40 mg daily, will give dose before dinner and than will continue in the AM. continue diet as tolerated plan for EGD tomorrow NPO 12 midnight except meds continue Miralax BID psych FU Thank you for this consult and for allowing us to participate in your patient care, will make further recommendation based upon clinical course. Seen and examined w/ Dr. Patterson.
[2016-09-21] MEDS ORDERED: Pantoprazole 40 mg EC Tab PO ONE (16:00)
--- NOTE | 2016-09-21 19:57 | CON ---
HISTORY OF PRESENT ILLNESS: The patient is a 66-year-old [place] female with multiple medical problems including diabetes, hypertension, hyperlipidemia, hypothyroidism. The patient has also 2 psychiatric hospitalization for somatic delusions. The patient was admitted on the medical side for evaluation of change in mental status. The patient was found by her , not moving and not answering the questions, most likely the patient was in catatonic stage. The patient was admitted on the medical side, psych consult was called for evaluation of altered mental status. The patient was seen and examined, the patient is a [place] speaking and this quality analyst/technical writer utilized in demand our translation system, [employer] #[id number]. The patient presented to be well. The patient is aware of the medical issues, who was brought the patient to the hospital and was aware of the circumstances of her admission. The patient said "I was not moving, I could not feel myself". The patient reports that that right now she feels much better. The patient reports that she is not depressed. The patient adamantly denied thoughts of harming herself or others. The patient reports no anxiety symptoms. The denied hearing voices, denied seeing things. Medical team as well as long term care social worker raised concerns about possible emergency room. The patient seems to be controlling person. When the patient was asked how family treats her, the patient report that family treats her "bellissimo". The patient reported no abuse. The patient reported her "adores me". The patient reported that her daughter, who is with her also takes good care of her. The patient denied any physical, emotional or sexual abuse in her life. PAST PSYCHIATRIC HISTORY: As this quality analyst/technical writer mention above. The patient had history of being admitted to the psychiatric inpatient unit, most recently was in 2014. The patient has somatic delusions that she could not digest food. 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 VITAL SIGNS: Seems to be stable. Temperature 97.7, pulse is 57, blood pressure is 152/91, respiration 20, oxygen saturation is 97. MEDICATIONS: Reviewed. The patient is on insulin, Synthroid, magnesium oxide, Protonix, MiraLax. LABS: Reviewed. WBC is 3.8. Chemistry: Chloride 95. Urinalysis: Blood trace lysed. Toxicology negative for any substances. MENTAL STATUS EXAMINATION: The patient was alert and oriented. The patient knows the name of the hospital, knew what is the day today, day of the weeks. The patient has fair eye contact. Speech was kind of over productive may be related to the cultural because the patient is [place]. Mood described " I feel fine, I feel much better". Affect was full of range, mood congruent. Thought process was coherent and goal directed. Thought content the patient denied visual, auditory, or tactile hallucinations. Denies paranoid ideation. The patient denied both of her harming herself or others. The patient does not present to be psychotic or delusional and no signs of suicidal attempt. Insight and judgement fair. Impulses are well controlled. Collaterals were obtained from the nursing staff. The patient is compliant with the medication, at times anxious but overall presented well. IMPRESSION: Altered mental status could be related to the medical issue. The patient has diabetes. The patient also has history of psychogenic polydipsia. From the psychiatric standpoint, the patient seems to be stable. No signs of depression. No signs of psychosis. No signs of anxiety. PLAN: Continue current management. Continue current medications. The patient does not appear to be depressed or delusions or anxious. Reported to have fair appetite, but the patient does not big eater. The patient has good night sleep. In regards of abuse, the patient adamantly denied that anybody in her family abusing her. The patient reports that the family is treated her very well as well as her adores her. In meanwhile, continue current management. Should you have any questions give me a call back. Thank you very much for letting me participate in care of your patient. Bev Lopez MD
[2016-09-22] MEDS: Levothyroxine 50 MCG TAB PO SCH (05:48)
[2016-09-22] MEDS ORDERED: Pantoprazole 40 mg EC Tab PO SCH ×2 (06:00→07:30)
[2016-09-22 07:39] LABS: HEMOGLOBIN 11.7 gm/dL (12.0-16.0); MEAN CELL VOLUME 83.9 fL (80.0-105.0); MEAN CORPUSCULAR HEMOGLOBIN 28.2 pg (25.0-35.0); MEAN CORPUSCULAR HGB CONC 33.6 g/dl (31.0-37.0); MEAN PLATELET VOLUME 9.5 fl (7.0-11.0); RBC 4.15 10^6/uL (3.5-6.1); RED CELL DISTRIBUTION WIDTH 12.6 % (11.5-14.5); WHITE BLOOD COUNT 3.8 10^3/ul (4.5-11.0)
[2016-09-22 07:59] LABS: BLOOD UREA NITROGEN 22 mg/dL (7-21); CALCIUM 9.2 mg/dL (8.4-10.5); GFR AFRICAN-AMERICAN > 60; GFR NON-AFRICAN AMERICAN > 60
[2016-09-22] MEDS ORDERED: Dextrose 5%/0.45% NS 1,000 ML IV SCH (08:30)
[2016-09-22] MEDS: Insulin Reg-LOW-Coverage SC SCH ×4 (08:30→23:36)
[2016-09-22] MEDS: POLYETHYLENE GLYCOL 3350 17 GM/Dose PACKET PO SCH ×2 (09:32→19:05)
[2016-09-22] MEDS: Magnesium Oxide 400 mg Tab UD PO SCH ×3 (09:32→19:05)
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
[2016-09-22] MEDS ORDERED: Propofol 10 mg/ml Inj (20 ML) ONE (14:28)
[2016-09-22] MEDS ORDERED: Benzocaine/Butamben/Tetracai 14-2-2% TOP Spray TOP ONE (14:32)
--- NOTE | 2016-09-22 14:56 | CP.PCM.PCO ---
Physician Communication Note - Physician Communication Note Physician Communication Note: spoke spoernie&daughter Katerina [phone], pt for egd.
[2016-09-22] MEDS: Sodium Chloride 0.9% 1,000 ML IV SCH (16:33)
[2016-09-22 22:30] LABS: FOLATE > 20.0 ng/mL
[2016-09-23] MEDS: Sodium Chloride 0.9% 1,000 ML IV SCH ×2 (01:27→12:32)
[2016-09-23] MEDS: Levothyroxine 50 MCG TAB PO SCH (06:33)
[2016-09-23] MEDS: Insulin Reg-LOW-Coverage SC SCH ×4 (09:09→22:34)
[2016-09-23] MEDS: Magnesium Oxide 400 mg Tab UD PO SCH ×3 (09:16→17:51)
[2016-09-23] MEDS: POLYETHYLENE GLYCOL 3350 17 GM/Dose PACKET PO SCH ×2 (09:24→17:52)
[2016-09-23 16:45] VITALS: RESP 18
[2016-09-24] MEDS: Levothyroxine 50 MCG TAB PO SCH (06:31)
[2016-09-24 08:30] VITALS: O2SAT 99
[2016-09-24] MEDS: Insulin Reg-LOW-Coverage SC SCH ×3 (08:40→18:04)
[2016-09-24] MEDS: POLYETHYLENE GLYCOL 3350 17 GM/Dose PACKET PO SCH ×3 (10:31→18:05)
[2016-09-24] MEDS: Magnesium Oxide 400 mg Tab UD PO SCH ×4 (10:31→18:07)
[2016-09-24 16:21] VITALS: BP 146/64; PULSE 55; TEMP 98
--- NOTE | 2016-09-24 20:39 | CP.PCM.DIS ---
Provider - Provider Date of Admission: 09/21/16 22:40 Attending physician: Ramy Napier MD Time Spent in preparation of Discharge (in minutes): 50 Diagnosis - Discharge Diagnosis (1) Erosive gastritis Status: Acute (2) Anemia Status: Acute (3) Leukopenia Status: Acute (4) Abdominal pain Status: Acute (5) Depression Status: Chronic (6) Diabetes Status: Chronic (7) Abnormal weight loss Status: Acute Hospital Course - Lab Results Lab Results: Most Recent Lab Values WBC 3.8 10^3/ul (4.5-11.0) L 09/22/16 07:00 RBC 4.15 10^6/uL (3.5-6.1) 09/22/16 07:00 Hgb 11.7 gm/dL (12.0-16.0) L 09/22/16 07:00 Hct 34.8 % (36.0-48.0) L 09/22/16 07:00 MCV 83.9 fL (80.0-105.0) 09/22/16 07:00 MCH 28.2 pg (25.0-35.0) 09/22/16 07:00 MCHC 33.6 g/dl (31.0-37.0) 09/22/16 07:00 RDW 12.6 % (11.5-14.5) 09/22/16 07:00 Plt Count 217 10^3/uL (120.0-450.0) 09/22/16 07:00 MPV 9.5 fl (7.0-11.0) 09/22/16 07:00 Gran % 64.3 % (50.0-68.0) 09/20/16 11:30 Lymph % (Auto) 25.0 % (22.0-35.0) 09/20/16 11:30 [place] % (Auto) 7.8 % (1.0-6.0) H 09/20/16 11:30 Eos % (Auto) 1.6 % (1.5-5.0) 09/20/16 11:30 Baso % (Auto) 1.3 % (0.0-3.0) 09/20/16 11:30 Gran # 2.47 (1.4-6.5) 09/20/16 11:30 Lymph # 1.0 (1.2-3.4) L 09/20/16 11:30 [place] # 0.3 (0.1-0.6) 09/20/16 11:30 Eos # 0.1 (0.0-0.7) 09/20/16 11:30 Baso # 0.05 K/mm3 (0.0-2.0) 09/20/16 11:30 PT 11.7 Seconds (9.9-11.8) 09/20/16 14:50 INR 1.08 (0.93-1.08) 09/20/16 14:50 APTT 28.7 Seconds (23.7-30.8) 09/20/16 14:50 pO2 36 mm/Hg (30-55) 09/20/16 15:00 VBG pH 7.28 (7.32-7.43) L 09/20/16 15:00 VBG pCO2 66.0 (40-60) H* 09/20/16 15:00 VBG HCO3 31.0 mmol/l (21-28) H 09/20/16 15:00 VBG Total CO2 33.0 mmol.L (22-28) H 09/20/16 15:00 VBG O2 Sat (Calc) 68.7 % (40-65) H 09/20/16 15:00 VBG Base Excess 2.4 mmol/L (0.0-2.0) H 09/20/16 15:00 VBG Potassium 4.9 mmol/L (3.6-5.2) 09/20/16 15:00 Sodium 148.0 mmol/L (132-148) 09/20/16 15:00 Chloride 89.0 mmol/L (98-107) L 09/20/16 15:00 Glucose 131 mg/dl (65-105) H 09/20/16 15:00 Lactate 1.5 mmol/L (0.7-2.1) 09/20/16 15:00 FiO2 21.0 % 09/20/16 15:00 Sodium 133 mmol/L (132-148) 09/22/16 07:00 Potassium 5.1 mmol/L (3.6-5.0) H 09/22/16 07:00 Chloride 93 mmol/L (98-107) L 09/22/16 07:00 Carbon Dioxide 32 mmol/L (21-33) 09/22/16 07:00 Anion Gap 13 (10-20) 09/22/16 07:00 BUN 22 mg/dL (7-21) H 09/22/16 07:00 Creatinine 0.6 mg/dL (0.5-1.4) 09/22/16 07:00 Est GFR ( Amer) > 60 09/22/16 07:00 Est GFR (Non-Af Amer) > 60 09/22/16 07:00 POC Glucose (mg/dL) 107 mg/dL (65-110) 09/24/16 15:57 Random Glucose 81 mg/dL (70-110) 09/22/16 07:00 Hemoglobin A1c 6.1 % (4.2-6.5) 09/21/16 09:31 Calcium 9.2 mg/dL (8.4-10.5) 09/22/16 07:00 Phosphorus 3.5 mg/dL (2.5-4.5) 09/20/16 14:50 Magnesium 1.6 mg/dL (1.7-2.2) L 09/20/16 14:50 Total Bilirubin 0.4 mg/dL (0.2-1.3) 09/20/16 14:50 AST 24 U/L (15-39) 09/20/16 14:50 ALT 22 U/L (7-56) 09/20/16 14:50 Alkaline Phosphatase 89 U/L (38-133) 09/20/16 14:50 Lactate Dehydrogenase 413 U/L (333-699) 09/20/16 14:50 Total Creatine Kinase 64 U/L (35-230) 09/20/16 14:50 Troponin I < 0.01 ng/mL 09/20/16 14:50 Total Protein 8.9 g/dL (5.8-8.3) H 09/20/16 14:50 Albumin 4.6 g/dL (3.0-4.8) 09/20/16 14:50 Globulin 4.3 gm/dL 09/20/16 14:50 Albumin/Globulin Ratio 1.1 (1.1-1.8) 09/20/16 14:50 Lipase 74 U/L (23-300) 09/20/16 14:50 Vitamin B12 337 pg/mL (239-931) 09/22/16 07:00 Folate > 20.0 ng/mL 09/22/16 07:00 TSH 3rd Generation 2.98 mIU/mL (0.46-4.68) 09/20/16 11:30 Venous Blood Potassium 4.9 mmol/L (3.6-5.2) 09/20/16 15:00 Urine Color Straw (YELLOW) 09/20/16 11:24 Urine Appearance Clear (CLEAR) 09/20/16 11:24 Urine pH 6.5 (4.7-8.0) 09/20/16 11:24 Ur Specific [place] <= 1.005 (1.005-1.035) 09/20/16 11:24 Urine Protein Negative mg/dL (<30 mg/dL) 09/20/16 11:24 Urine Glucose (UA) Negative mg/dL (NEGATIVE) 09/20/16 11:24 Urine Ketones Negative mg/dL (NEGATIVE) 09/20/16 11:24 Urine Blood Trace-lysed (NEGATIVE) H 09/20/16 11:24 Urine Nitrate Negative (NEGATIVE) 09/20/16 11:24 Urine Bilirubin Negative (NEGATIVE) 09/20/16 11:24 Urine Urobilinogen 0.2 E.U./dL (<1 E.U./dL) 09/20/16 11:24 Ur Leukocyte Esterase Negative [place]athalia/uL (NEGATIVE) 09/20/16 11:24 Urine RBC Negative /hpf (0-2) 09/20/16 11:24 Urine WBC Negative /hpf (0-6) 09/20/16 11:24 Salicylates < 1 mg/dL (2.0-20.0) L 09/20/16 11:30 Urine Opiates Screen Negative (NEGATIVE) 09/20/16 11:24 Urine Methadone Screen Negative (NEGATIVE) 09/20/16 11:24 Acetaminophen < 10.0 ug/ml (10.0-20.0) L 09/20/16 11:30 Ur Barbiturates Screen Negative (NEGATIVE) 09/20/16 11:24 Ur Phencyclidine Scrn Negative (NEGATIVE) 09/20/16 11:24 Ur Amphetamines Screen Negative (NEGATIVE) 09/20/16 11:24 U Benzodiazepines Scrn Negative (NEGATIVE) 09/20/16 11:24 U Oth Cocaine Metabols Negative (NEGATIVE) 09/20/16 11:24 U Cannabinoids Screen Negative (NEGATIVE) 09/20/16 11:24 Alcohol, Quantitative < 10 mg/dL (0-10) 09/20/16 11:30 - Hospital Course Hospital Course: Pt. was admitted with abdominal pain. She was not able to get out of bed due to weakness. EGD done showed erosive gastritis and superficial deudenal ulcers. She has anxiety and depression. She was able to tolerate oral diet. Discharge Exam - Head Exam Head Exam: ATRAUMATIC, NORMAL INSPECTION, NORMOCEPHALIC - Eye Exam Eye Exam: Normal appearance Pupil Exam: NORMAL ACCOMODATION - ENT Exam ENT Exam: Normal Oropharynx - Neck Exam Neck exam: Normal Inspection - Respiratory Exam Respiratory Exam: NORMAL BREATHING PATTERN - Cardiovascular Exam Cardiovascular Exam: REGULAR RHYTHM, +S1, +S2 - GI/Abdominal Exam GI & Abdominal Exam: Normal Bowel Sounds, Unremarkable - Extremities Exam Extremities exam: normal inspection - Back Exam Back exam: NORMAL INSPECTION - Neurological Exam Neurological exam: Alert, CN II-XII Intact, Normal Gait, Oriented x3 - Skin Skin Exam: Normal Color, Warm Discharge Plan - Follow Up Plan Condition: FAIR Disposition: HOME/ ROUTINE Instructions: Diabetic Hypoglycemia (GEN), Acute Abdominal Pain (DC), Acute Abdominal Pain (GEN) Additional Instructions: - Continue with home medications. - Hold off metformin. - Try to eat a balanced - follow up with Dr Galdamez in 1 week to see if you need to continue with metformin. Referrals: Titi Galdamez MD [Family Provider] -
--- NOTE | 2016-09-26 18:58 | PN ---
DATE: 09/23/2016 HISTORY OF PRESENT ILLNESS: The patient is a 66-year-old female admitted with abdominal pain and CAT scan of the abdomen did not show any mass lesion. She has underwent EGD which showed erosive gastritis and superficial duodenal ulcer. She has iron deficiency anemia. She has leukopenia also. She was started on liquid diet after endoscopy. She has depression, had episodes of crying. Abdominal pain has improved. She also has abnormal weight loss likely due to gastritis and not able to eat and drink. REVIEW OF SYSTEMS: As per HPI. Rest of the 12-point review of systems reviewed and negative. MEDICATIONS: Maalox daily, IV fluid 800 mL as an hour, Pepcid 20 mg b.i.d., fentanyl patch 100 mcg daily, insulin, levothyroxine 50 mcg daily, morphine 4 mg IV q. 4 hour p.r.n., MiraLax p.r.n. PHYSICAL EXAMINATION: GENERAL: Comfortable in bed, in no acute distress, cachectic. VITAL SIGNS: Stable. Temperature 98.7, heart rate 80 per minute, blood pressure 120/70. HEENT: Oral mucosa dry. NECK: Supple. CHEST: Air entry present and equal bilaterally. No added sounds. CARDIOVASCULAR: S1 and S2 normal. No murmur. No gallop. ABDOMEN: Soft and nontender. No hepatosplenomegaly. EXTREMITIES: No edema. 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 No focal sensory or motor deficits. LABORATORY DATA: White count 3.8, hemoglobin 11.7, platelet count 217. Sodium 133, potassium 5.1, BUN 22, creatinine 0.6, calcium is 9.2, phosphorus 3.5, magnesium 1.6, bilirubin 0.4, AST 24, ALT 22. ASSESSMENT: 1. Anemia. 2. Leukopenia. 3. Erosive gastritis. 4. Depression. 5. Diabetes mellitus type 2. 6. Abnormal weight loss. PLAN: We will continue IV fluid. Intake: Currently on liquids, soft diet ordered. If able to tolerate p.o. she will be discharged tomorrow. Continue PPI. Anna Otto MD
== END 2016-09-24 19:34 | disposition home or self-care (01) | DRG 383 ==
LOC: ED 10:21 → EROBSV 11:30 → ERH 16:40 → 5RSO 19:08 → OBSVTOIN 09-21 22:40
PROVIDERS: ADMIT Internal Medicine Nephrology; ATTEND Internal Medicine Nephrology
PROC: 0DB68ZX Excision of Stomach, Via Natural or Artificial Opening Endoscopic, Diagnostic (ICD-10-PCS; principal; 2016-09-22 13:00)
DX: K25.9 Gastric ulcer, unspecified as acute or chronic, without hemorrhage or perforation (principal); G83.5 Locked-in state; E11.649 Type 2 diabetes mellitus with hypoglycemia without coma; K31.84 Gastroparesis; E11.65 Type 2 diabetes mellitus with hyperglycemia; J43.9 Emphysema, unspecified; E11.43 Type 2 diabetes mellitus with diabetic autonomic (poly)neuropathy; K29.60 Other gastritis without bleeding; K26.9 Duodenal ulcer, unspecified as acute or chronic, without hemorrhage or perforation; D64.9 Anemia, unspecified; D72.819 Decreased white blood cell count, unspecified; R10.9 Unspecified abdominal pain; K21.9 Gastro-esophageal reflux disease without esophagitis; K59.00 Constipation, unspecified; I10 Essential (primary) hypertension; E78.5 Hyperlipidemia, unspecified; E78.00 Pure hypercholesterolemia, unspecified; E83.42 Hypomagnesemia; E87.6 Hypokalemia; E03.9 Hypothyroidism, unspecified; F22 Delusional disorders; F31.9 Bipolar disorder, unspecified; F41.9 Anxiety disorder, unspecified; H40.9 Unspecified glaucoma; L81.8 Other specified disorders of pigmentation; S20.411A Abrasion of right back wall of thorax, initial encounter; S40.811A Abrasion of right upper arm, initial encounter; R40.2412 Glasgow coma scale score 13-15, at arrival to emergency department; H53.8 Other visual disturbances; R09.89 Other specified symptoms and signs involving the circulatory and respiratory systems; R63.4 Abnormal weight loss; Z86.59 Personal history of other mental and behavioral disorders

== ENCOUNTER 2016-10-07 09:05 | Inpatient (IN) | payer MEDICARE, OTHER ==
[2016-10-07 09:06] VITALS: BMI 20.5
--- NOTE | 2016-10-07 09:30 | ED PDOC ---
Arrival/HPI - General Chief Complaint: Medical Clearance Time Seen by Provider: 10/07/16 09:09 Historian: Spouse, F[employer] (#[id number]) - History of Present Illness Narrative History of Present Illness (Text): 10/07/16 09:25 A 66 year old female, whose past medical history includes diabetes, hypertension and hyperlipidemia, was brought into the emergency department by EMS accompanied by for further evaluation. History obtained through delivery mgr #[id number]. reports patient was last seen normal yesterday night at 19:00 before going to bed. He states while trying to wake patient up this morning for breakfast she was not responding. Limited HPI and ROS. PMD: Dr. Galdamez Time/Duration: Prior to Arrival Context: Home Past Medical History - Provider Review Nursing Documentation Reviewed: Yes - Infectious Disease Hx of Infectious Diseases: None - Tetanus Immunization Tetanus Immunization: Unknown - Reproductive Menopause: Yes - Past Medical History Past Medical History: Non-Contributing - Cardiac Hx Pacemaker: No - Pulmonary Hx Respiratory Disorders: No - Neurological Hx Neurological Disorder: No - HEENT Hx HEENT Disorder: Yes (BLURRY VISION) Hx Glaucoma: Yes (Right eye; family questions both?) - Renal Hx Renal Disorder: No - Endocrine/Metabolic Hx Endocrine Disorders: Yes Hx Diabetes Mellitus Type 2: Yes Hx Hypothyroidism: Yes - Hematological/Oncological Hx Blood Transfusions: No Hx Blood Transfusion Reaction: No - Integumentary Hx Dermatological Disorder: Yes - Musculoskeletal/Rheumatological Hx Musculoskeletal Disorders: Yes - Gastrointestinal Hx Gastrointestinal Disorders: Yes Hx Gastroesophageal Reflux: Yes - Genitourinary/Gynecological Hx Genitourinary Disorders: No - Psychiatric Hx Substance Use: No - Past Surgical History Past Surgical History: No Previous - Surgical History Hx Section: Yes - Anesthesia Hx Anesthesia Reactions: No Hx Malignant Hyperthermia: No - Suicidal Assessment Feels Threatened In Home Enviroment: No Family/Social History - Physician Review Nursing Documentation Reviewed: Yes Family/Social History: No Known Family HX Smoking Status: Never Smoked Hx Alcohol Use: No Hx Substance Use: No Hx Substance Use Treatment: No Allergies/Home Meds Allergies/Adverse Reactions: Allergies No Known Allergies Allergy (Verified 09/20/16 10:40) Home Medications: Home Meds Medication Instructions Recorded Confirmed Levothyroxine [Synthroid] 50 mcg PO DAILY 03/09/15 10/07/16 Ergocalciferol (Vitamin D2) 50,000 unit PO QWK 09/20/16 10/07/16 [Vitamin D2] Review of Systems - Review of Systems Systems not reviewed;Unavailable: Acuity of Condition Physical Exam Vital Signs Temp Pulse Resp BP Pulse Ox 10/07/16 15:00 64 18 164/80 H 100 10/07/16 13:33 62 16 158/79 H 100 10/07/16 11:06 65 18 154/86 H 100 10/07/16 09:05 97.7 F 65 18 155/78 H 100 Appearance: Positive for: Well-Appearing, Non-Toxic, Comfortable Pain Distress: None - Systems Exam Head: Present: Atraumatic, Normocephalic Pupils: Present: PERRL (3mm) Extroacular Muscles: Present: EOMI Conjunctiva: Present: Normal Mouth: Present: Other (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 No: Respiratory Distress, Accessory Muscle Use Cardiovascular: Present: Regular Rate and Rhythm, Normal S1, S2. No: Murmurs Abdomen: Present: Normal Bowel Sounds. No: Tenderness, Distention, Peritoneal Signs Back: Present: Normal Inspection Upper Extremity: Present: Other (Pateint allows me to lift her arms, when released she does not allow them to fall on her head). No: Cyanosis, Edema Lower Extremity: No: Edema Neurological: No: Normal Sensory Function (Does not respond to painful stimuli) Skin: Present: Warm, Dry, Normal Color. No: Rashes Medical Decision Making ED Course and Treatment: 10/07/16 09:25 Impression: A 66 year old female brought in for further evaluation. reports patient was not responsive this morning. Differential Diagnosis included but are not limited to: Psych/Catatonic vs. Seizure vs. CVA Plan: -- Head CT -- Chest xray -- EKG -- Labs -- Reassess and disposition Prior Visits: Notes and results from previous visits were reviewed. Patient last seen in the ED on 09/20/16 for altered mental status. Patient was hospitalized for Gastroparesis. - Lab Interpretations I have reviewed the lab results: Yes - Medication Orders Current Medication Orders: Discontinued Medications Potassium Chloride (Potassium Chloride 10 Meq/100 Ml) 10 meq in 100 mls @ 100 mls/hr IVPB ONCE ONE Stop: 10/07/16 12:02 Last Admin: 10/07/16 11:14 Dose: 100 mls/hr Lorazepam (Ativan) 1 mg IVP ONCE ONE PRN Reason: Protocol Stop: 10/07/16 15:14 Last Admin: 10/07/16 15:25 Dose: 1 mg Potassium Chloride (Potassium Chloride Oral Soln) 40 meq PO STAT STA Stop: 10/07/16 10:15 Last Admin: 10/07/16 11:12 Dose: ED OBSERVATION Date of observation admission: 10/07/16 Time of observation admission: 09:20 - Observation admission statement Patient is being placed in observation because:: Altered mental status - Goals of Observation Goals of observation are:: Monitor and treat patient - Progress Note Progress Note: 10/07/16 09:20 EKG shows sinus bradycardia at [address]-segment elevations, normal intervals, normal axis. Interpreted by me. Report Date : 10/07/2016 10:25:11 PROCEDURE: CT HEAD WITHOUT CONTRAST. Dictator : Rod Cardoza MD IMPRESSION: No intracranial mass, hemorrhage or evidence of acute infarct. Mild bilateral chronic maxillary sinusitis. 10/07/16 10:34 Daughter at bedside, who states patient was licking her lips and moving her hands. Patient continues to be unresponsive to verbal stimuli. Report Date : 10/07/2016 11:18:44 PROCEDURE: CHEST RADIOGRAPH, 1 VIEW Dictator : Rod Cardoza MD IMPRESSION: No active disease. 10/07/16 14:06 Patient continues to be catatonic. She opens her mouth to wipe her lips but does not answer any questions. She is breathing at a normal rate with no respirator distress. This was the same clinical presentation on her last visit. I discussed this case with Dr. Beckwith who is covering for Dr. Castellanos and agrees to place on observation for Altered Mental Status to Telemetry. A consult was placed for Psych evaluation. 10/07/16 15:02 PES evaluated patient. She discussed case with Dr. Servin. Will try Ativan 1mg IV to see if it helps with pateints symptoms. 10/07/16 15:48 After Ativan patient slowly waking up. Shes asking to sit the bed up a little. 10/07/16 16:00 Patient is now awake. She's stating she has a mild headache which she states she gets when her sugar is high. She denies any other symptoms. She is AAOx3. Knows it's a hospital but doesn't know how she got here. When asked what she remembers last, she says, "she ". Estonian translation by daughter. - Scribe Statement The provider has reviewed the documentation as recorded by the Scribe Miroslava De Provider Scribe Attestation: All medical record entries made by the Scribe were at my direction and personally dictated by me. I have reviewed the chart and agree that the record accurately reflects my personal performance of the history, physical exam, medical decision making, and the department course for this patient. I have also personally directed, reviewed, and agree with the discharge instructions and disposition. Disposition/Present on Arrival - Present on Arrival Any Indicators Present on Arrival: Yes History of DVT/PE: No History of Uncontrolled Diabetes: Yes Urinary Catheter: No History of Decub. Ulcer: No History Surgical Site Infection Following: None - Disposition Have Diagnosis and Disposition been Completed?: Yes Diagnosis: Altered mental status, Catatonia Disposition: HOSPITALIZED Disposition Time: 14:08 Patient Plan: Observation Patient Problems: Current Active Problems Problem Status Onset Altered mental status Acute Catatonia Acute Condition: FAIR
[2016-10-07 09:57] LABS: BASO # 0.03 K/mm3 (0.0-2.0); BASO % 0.8 % (0.0-3.0); EOS % 0.5 % (1.5-5.0); GRAN # 2.01 (1.4-6.5); GRAN % 52.1 % (50.0-68.0); HEMATOCRIT 38.1 % (36.0-48.0); LYMPH # 1.4 (1.2-3.4); MEAN CELL VOLUME 84.9 fl (80.0-105.0); MEAN CORPUSCULAR HEMOGLOBIN 28.3 pg (25.0-35.0); MEAN CORPUSCULAR HGB CONC 33.3 g/dl (31.0-37.0); MEAN PLATELET VOLUME 9.3 fl (7.0-11.0); MONO # 0.4 (0.1-0.6); MONO % 9.6 % (1.0-6.0); RED CELL DISTRIBUTION WIDTH 12.6 % (11.5-14.5); WHITE BLOOD COUNT 3.9 10^3/ul (4.5-11.0)
[2016-10-07 10:04] LABS: ALB/GLOB RATIO 1.1 (1.1-1.8); ALKALINE PHOSPHATASE 90 U/L (38-133); ALT/SGPT 25 U/L (7-56); AST/SGOT 19 U/L (15-39); BILIRUBIN,TOTAL 0.5 mg/dL (0.2-1.3); BLOOD UREA NITROGEN 11 mg/dL (7-21); CALCIUM 9.1 mg/dL (8.4-10.5); CARBON DIOXIDE 30 mmol/L (21-33); CHLORIDE 101 mmol/L (98-107); GFR AFRICAN-AMERICAN > 60; GLUCOSE,RANDOM 84 mg/dL (70-110); POTASSIUM 3.3 mmol/L (3.6-5.0); SODIUM 142 mmol/L (132-148); TOTAL PROTEIN 7.6 g/dL (5.8-8.3)
[2016-10-07 10:05] LABS: INR 1.07 (0.93-1.08); PARTIAL THROMBOPLASTIN TIME 25.8 Seconds (23.7-30.8)
[2016-10-07] MEDS ORDERED: Potassium Chloride 40 mEq/30 ml LIQ UD PO STA (10:14)
[2016-10-07 10:15] LABS: TROPONIN I < 0.01 ng/mL
--- NOTE | 2016-10-07 10:27 | CT ---
PROCEDURE: CT HEAD WITHOUT CONTRAST. HISTORY: altered mental status COMPARISON: 09/20/2016 TECHNIQUE: Axial computed tomography images were obtained through the head/brain without intravenous contrast. Radiation dose: Total exam DLP = 712.03 mGy-cm. This CT exam was performed using one or more of the following dose reduction techniques: Automated exposure control, adjustment of the mA and/or kV according to patient size, and/or use of iterative reconstruction technique. FINDINGS: HEMORRHAGE: No intracranial hemorrhage. BRAIN: No mass effect or edema. Mild diffuse age-appropriate cerebral atrophy. No evidence of acute infarct. VENTRICLES: Unremarkable. No hydrocephalus. CALVARIUM: Unremarkable. PARANASAL SINUSES: Bilateral mild chronic maxillary sinusitis. MASTOID AIR CELLS: Unremarkable as visualized. No inflammatory changes. OTHER FINDINGS: None. IMPRESSION: No intracranial mass, hemorrhage or evidence of acute infarct. Mild bilateral chronic maxillary sinusitis.
--- NOTE | 2016-10-07 11:20 | RAD ---
PROCEDURE: CHEST RADIOGRAPH, 1 VIEW HISTORY: syncope COMPARISON: 09/20/2016 FINDINGS: LUNGS: Clear. PLEURA: No pneumothorax or pleural fluid seen. CARDIOVASCULAR: Normal. OSSEOUS STRUCTURES: No significant abnormalities. VISUALIZED UPPER ABDOMEN: Normal. OTHER FINDINGS: None. IMPRESSION: No active disease.
--- NOTE | 2016-10-07 13:21 | CARD ---
APPROVED REPORT EKG Measurement Heart [id number] <Conclusion> Sinus bradycardia Otherwise normal ECG
[2016-10-07] MEDS: Dextrose 5%/0.45% NS 1,000 ML IV SCH (17:49)
[2016-10-07] MEDS: Levothyroxine 50 MCG TAB PO SCH (17:52)
--- NOTE | 2016-10-08 02:23 | HP ---
HISTORY OF PRESENT ILLNESS: The patient is a 66-year-old patient of Dr. Galdamez, was brought to emergency room when her found her unresponsive, she was not talking, she was not eating, she will not open her eye on verbal command. She is Kyrgyz speaking. reports that she was normal last night, but this morning when he was trying to wake her up, she did not open her eyes, so he called ambulance and she was brought to emergency room. While the patient was in the ER, she did not respond. She had a similar episode on previous admission on 09/21/2016. At that point, she was hypokalemic and not eating and drinking. PAST MEDICAL HISTORY: She has significant past medical; 1. History of hypertension. 2. Hypothyroidism. 3. Hyperlipidemia. 4. History of anxiety disorder. 5. . 6. Peptic ulcer disease. ALLERGIES: SHE IS NOT ALLERGIC TO ANY MEDICATIONS. MEDICATIONS AT HOME: She is on Protonix 40 daily, levothyroxine 50 mcg daily, vitamin D. SOCIAL HISTORY: She is . Lives with her . No history of smoking, drinking or alcohol use. REVIEW OF SYSTEMS: Significant for being lethargic. PHYSICAL EXAMINATION: GENERAL: She is lying in bed, not in any acute distress. VITAL SIGNS: She is afebrile, pulse 65, respirations 18, blood pressure 155/78. LUNGS: Bilaterally clear air flow. No rhonchi or crackle. HEART: S1, S2 audible. ABDOMEN: Soft, nontender. No rebound, no guarding. NEUROLOGIC: She is sleepy and not responding. LABORATORY DATA: WBC 3.9, hemoglobin 12.7, hematocrit 38, platelet of 196. PT 11.6, INR 1.07. Chemistry; sodium 142, potassium 3.3, chloride 101, CO2 of 30, BUN 11, creatinine 0.6. Blood sugar of 84. She had CT scan of the head done that is negative for any acute event or CVA. She has bilateral chronic maxillary sinusitis. EKG done shows sinus bradycardia, that was normal EKG. X-ray chest is unremarkable. ASSESSMENT AND PLAN: 1. Altered mental status, probably psychiatric disorder. 2. Hyperkalemia. 3. Hypothyroidism. 4. Peptic ulcer disease, status post endoscopy on 09/22/2016 and biopsy showed benign gastric epithelium, negative for Helicobacter pylori and intestinal metaplasia. PLAN: We will place her in observation. We will supplement her potassium. She will be given lorazepam. We will resume her medications. Watch her for next 24 hours. She started to respond and become alert. We will make discharge plan or transfer to psych unit. Vitaliy Beckwith MD
[2016-10-08] MEDS: Dextrose 5%/0.45% NS 1,000 ML IV SCH ×2 (06:36→10:07)
[2016-10-08 07:43] LABS: BASO # 0.02 K/mm3 (0.0-2.0); BASO % 0.6 % (0.0-3.0); EOS % 1.3 % (1.5-5.0); GRAN # 1.74 (1.4-6.5); GRAN % 55.9 % (50.0-68.0); LYMPH % 32.2 % (22.0-35.0); MEAN CELL VOLUME 85.4 fl (80.0-105.0); MEAN CORPUSCULAR HEMOGLOBIN 27.6 pg (25.0-35.0); MEAN CORPUSCULAR HGB CONC 32.4 g/dl (31.0-37.0); MEAN PLATELET VOLUME 9.5 fl (7.0-11.0); MONO # 0.3 (0.1-0.6); RED CELL DISTRIBUTION WIDTH 12.8 % (11.5-14.5); WHITE BLOOD COUNT 3.1 10^3/ul (4.5-11.0)
[2016-10-08 07:53] LABS: ALKALINE PHOSPHATASE 79 U/L (38-133); ALT/SGPT 31 U/L (7-56); AST/SGOT 30 U/L (15-39); BILIRUBIN,TOTAL 0.3 mg/dL (0.2-1.3); BLOOD UREA NITROGEN 14 mg/dL (7-21); CALCIUM 8.5 mg/dL (8.4-10.5); CARBON DIOXIDE 30 mmol/L (21-33); CHLORIDE 102 mmol/L (98-107); GFR AFRICAN-AMERICAN > 60; GLUCOSE,RANDOM 140 mg/dL (70-110); POTASSIUM 3.6 mmol/L (3.6-5.0); SODIUM 138 mmol/L (132-148); TOTAL PROTEIN 6.4 g/dL (5.8-8.3)
[2016-10-08] MEDS: Levothyroxine 50 MCG TAB PO SCH (10:07)
--- NOTE | 2016-10-08 18:13 | PN ---
SUBJECTIVE: The patient is 66 years old, seen and examined, sitting in chair, able to communicate now. She speaks Irish, but can say few words of Egyptian. She did eat some, does not want to go home. She states "I don't feel good, yet I feel weak." PHYSICAL EXAMINATION: VITAL SIGNS: She is afebrile, pulse 53, respirations 20, blood pressure 145/75. LUNGS: Bilateral fair air flow. No rhonchi or crackle. HEART: S1, S2 audible. ABDOMEN: Soft, nontender. No rebound, no guarding. NEUROLOGICALLY: She is awake and alert, able to communicate. LABORATORY DATA: WBC 3.1, hemoglobin 11, hematocrit 34, platelets of 184. Chemistry: Sodium 138, potassium 3.6, chloride 102, CO2 of 30, BUN 14, creatinine of 0.6, blood sugar of 112. LFTs are within normal limits. ASSESSMENT: 1. Failure to thrive. 2. Leukopenia, etiology unclear. 3. History of hypertension. 4. Hypothyroidism. 5. Anxiety disorder. 6. Peptic ulcer disease. PLAN: I will discontinue telemetry. She seems to be hemodynamically stable. Encourage ambulation. We will reevaluate the patient in a.m. If she is ambulating and gait is stable, can be discharged home. Vitaliy Beckwith MD
[2016-10-09] MEDS: Dextrose 5%/0.45% NS 1,000 ML IV SCH (00:45)
[2016-10-09] MEDS: Pantoprazole 40 mg EC Tab PO SCH (05:09)
--- NOTE | 2016-10-09 09:19 | CP.PCM.PCO ---
Physician Communication Note - Physician Communication Note Physician Communication Note: discussed with , pt is at baseline, consult canceled
[2016-10-09] MEDS: Levothyroxine 50 MCG TAB PO SCH (10:32)
[2016-10-09] MEDS ORDERED: Ammonia 2% Inhalant IH STA (13:15)
[2016-10-09 13:35] LABS: ARTERIAL BLOOD GAS HCO3 31.3 mmol/L (21-28); ARTERIAL BLOOD GAS PH 7.48 (7.35-7.45)
--- NOTE | 2016-10-09 14:06 | CP.PCM.PN ---
<Carleen Bowen - Last Filed: 10/09/16 14:50> Subjective - Date & Time of Evaluation Date of Evaluation: 10/09/16 Time of Evaluation: 13:19 - Subjective Subjective: RAPID RESPONSE NOTE: Rapid response was called for unresponsiveness at 13:19pm. SHRIMP CLEANER responded immediately. Per nursing, patient ate her lunch this afternoon and afterwards went to the bathroom. Was later found in bed unresponsive, Dr Ramirez was paged and evaluated the patient. Patient was unresponsive to verbal, deep/painful stimuli. Vital signs at this time BP 174/81 P 58 RR 16 Temp 98.0 Sp02 100% Accucheck 131. When patient inhaled smelling salts, patient woke up complaining of an occipital headache. Denies any other complaints at this time. PMD notified. Past Medical Hx: Has had similar episodes in the past according to Objective - Vital Signs/Intake and Output Vital Signs (last 24 hours): Temp Pulse Resp BP Pulse Ox 97.8 F 54 L 18 106/49 L 99 10/09/16 07:36 10/09/16 07:36 10/09/16 07:36 10/09/16 07:36 10/09/16 09:07 Intake and Output: 10/09/16 10/09/16 06:59 18:59 Intake Total 1200 Balance 1200 - Medications Medications: Current Medications Acetaminophen (Tylenol 325mg Tab) 650 mg PO Q6H PRN PRN Reason: Fever >100.4 F Last Admin: 10/08/16 12:45 Dose: 650 mg Aspirin (Aspirin Chewable) 81 mg PO DAILY [facility] Last Admin: 10/09/16 10:32 Dose: 81 mg Levothyroxine Sodium (Synthroid) 50 mcg PO DAILY [facility] Last Admin: 10/09/16 10:32 Dose: 50 mcg Pantoprazole Sodium (Protonix Ec Tab) 40 mg PO 0600 [facility] Last Admin: 10/09/16 05:09 Dose: 40 mg - Labs Labs: 10/08/16 07:30 10/08/16 07:30 PT 11.6 Seconds (9.9-11.8) 10/07/16 09:50 INR 1.07 (0.93-1.08) 10/07/16 09:50 APTT 25.8 Seconds (23.7-30.8) 10/07/16 09:50 - Constitutional Appears: No Acute Distress - Head Exam Head Exam: ATRAUMATIC, NORMAL INSPECTION - Eye Exam Eye Exam: Normal appearance - ENT Exam ENT Exam: Mucous Membranes Moist - Neck Exam Neck Exam: Full ROM - Respiratory Exam Respiratory Exam: Clear to Ausculation Bilateral, NORMAL BREATHING PATTERN. absent: Rales, Rhonchi, Wheezes - Cardiovascular Exam Cardiovascular Exam: REGULAR RHYTHM, +S1, +S2 - GI/Abdominal Exam GI & Abdominal Exam: Soft. absent: Distended, Guarding, Rigid - Extremities Exam Extremities Exam: Normal Inspection - Back Exam Back Exam: NORMAL INSPECTION - Neurological Exam Neurological Exam: Altered (Not arousable with deep painful stimuli however responded promptly to smelling salts ). absent: Alert Neuro motor strength exam: Left Upper Extremity: 0, Right Upper Extremity: 0, Left Lower Extremity: 2/1 (Increased tone), Right Lower Extremity: 2/1 ( Increased tone) Additional comments: Unresponsive to verbal, painful stimuli No facial asymmetry noted - Skin Skin Exam: Dry, Normal Color, Warm Assessment and Plan - Assessment and Plan (Free Text) Assessment: 66 year old female with past medical history of diabetes, hypertension and hyperlipidemia, was brought into the emergency department by EMS accompanied by for altered mental status. Rapid response was called for unresponsiveness. Plan: 1. Stat Labs ordered: CBC, CMP, Troponins, ABG with shock panel 2. EKG at the bedside showed Sinus rhythm with occasional PACs 3. CT head without contrast: no acute findings 4. Trend troponins 5. Psych consult, Dr Barlow requested 6. Neuro checks Q4H for 24 hours 7. Discussed case with Dr Napier, Neurology consult not requested at this time 8. Discharge order cancelled, will observe patient overnight 8. Plan d/w attending <Bhumi Ramirez - Last Filed: 10/09/16 16:02> Objective - Vital Signs/Intake and Output Vital Signs (last 24 hours): Temp Pulse Resp BP Pulse Ox 97.8 F 54 L 18 106/49 L 99 10/09/16 07:36 10/09/16 07:36 10/09/16 07:36 10/09/16 07:36 10/09/16 09:07 Intake and Output: 10/09/16 10/09/16 06:59 18:59 Intake Total 1200 480 Balance 1200 480 - Medications Medications: Current Medications Acetaminophen (Tylenol 325mg Tab) 650 mg PO Q6H PRN PRN Reason: Fever >100.4 F Last Admin: 10/08/16 12:45 Dose: 650 mg Aspirin (Aspirin Chewable) 81 mg PO DAILY [facility] Last Admin: 10/09/16 10:32 Dose: 81 mg Levothyroxine Sodium (Synthroid) 50 mcg PO DAILY [facility] Last Admin: 10/09/16 10:32 Dose: 50 mcg Pantoprazole Sodium (Protonix Ec Tab) 40 mg PO 0600 [facility] Last Admin: 10/09/16 05:09 Dose: 40 mg - Labs Labs: 10/09/16 15:01 10/09/16 15:01 PT 11.6 Seconds (9.9-11.8) 10/07/16 09:50 INR 1.07 (0.93-1.08) 10/07/16 09:50 APTT 25.8 Seconds (23.7-30.8) 10/07/16 09:50 Attending/Attestation - Attestation I have personally seen and examined this patient.: Yes I have fully participated in the care of the patient.: Yes I have reviewed all pertinent clinical information, including history, physical exam and plan: Yes Notes (Text): 10/09/16 16:01 Agree with findings and plan noted above.
--- NOTE | 2016-10-09 14:07 | CT ---
PROCEDURE: CT HEAD WITHOUT CONTRAST. HISTORY: AMS COMPARISON: 10/07/2016 TECHNIQUE: Axial computed tomography images were obtained through the head/brain without intravenous contrast. Radiation dose: Total exam DLP = 666 mGy-cm. This CT exam was performed using one or more of the following dose reduction techniques: Automated exposure control, adjustment of the mA and/or kV according to patient size, and/or use of iterative reconstruction technique. FINDINGS: HEMORRHAGE: No intracranial hemorrhage. BRAIN: No mass effect or edema. Mild atrophy VENTRICLES: Unremarkable. No hydrocephalus. CALVARIUM: Unremarkable. PARANASAL SINUSES: Unremarkable as visualized. No significant inflammatory changes. MASTOID AIR CELLS: Unremarkable as visualized. No inflammatory changes. OTHER FINDINGS: None. IMPRESSION: No acute findings
[2016-10-09 15:08] LABS: BASO # 0.03 K/mm3 (0.0-2.0); BASO % 0.8 % (0.0-3.0); EOS % 0.6 % (1.5-5.0); GRAN # 1.99 (1.4-6.5); GRAN % 56.1 % (50.0-68.0); HEMATOCRIT 36.5 % (36.0-48.0); LYMPH # 1.2 (1.2-3.4); LYMPH % 34.9 % (22.0-35.0); MEAN CELL VOLUME 86.9 fl (80.0-105.0); MEAN CORPUSCULAR HEMOGLOBIN 27.9 pg (25.0-35.0); MEAN CORPUSCULAR HGB CONC 32.1 g/dl (31.0-37.0); MEAN PLATELET VOLUME 9.6 fl (7.0-11.0); MONO # 0.3 (0.1-0.6); MONO % 7.6 % (1.0-6.0); RED CELL DISTRIBUTION WIDTH 12.9 % (11.5-14.5); WHITE BLOOD COUNT 3.6 10^3/ul (4.5-11.0)
[2016-10-09 15:15] LABS: ALB/GLOB RATIO 1.1 (1.1-1.8); ALKALINE PHOSPHATASE 79 U/L (38-133); ALT/SGPT 27 U/L (7-56); AST/SGOT 20 U/L (15-39); BILIRUBIN,TOTAL 0.2 mg/dL (0.2-1.3); BLOOD UREA NITROGEN 13 mg/dL (7-21); CALCIUM 8.8 mg/dL (8.4-10.5); CARBON DIOXIDE 29 mmol/L (21-33); CHLORIDE 103 mmol/L (98-107); GFR AFRICAN-AMERICAN > 60; GLUCOSE,RANDOM 107 mg/dL (70-110); POTASSIUM 3.9 mmol/L (3.6-5.0); SODIUM 141 mmol/L (132-148); TOTAL PROTEIN 6.8 g/dL (5.8-8.3)
[2016-10-09 15:26] LABS: TROPONIN I 0.02 ng/mL
--- NOTE | 2016-10-09 15:26 | CARD ---
APPROVED REPORT EKG Measurement Heart [id number] <Conclusion> Sinus rhythm with premature atrial complexes Cannot rule out Anterior infarct, age undetermined Abnormal ECG
--- NOTE | 2016-10-10 04:48 | DS ---
SUBJECTIVE: The patient has no complaints of any chest pain, no shortness of breath, no headaches or dizziness. DISCHARGE SUMMARY: This is a 66-year-old female who came into the hospital with changes in mental status, she may have had delirium, she is improved. She is able to eat. She is answering questions. She does complain of weakness. Her labs has been stable. She will be discharged home to follow as an outpatient. She was advised to take her Protonix because of her history of GI issues. No headaches, no dizziness, no nausea. PHYSICAL EXAMINATION: VITAL SIGNS: Temperature is 97.8, pulse is 54, blood pressure is 106/49, respirations 18. GENERAL: The patient is lying in bed, flat, comfortable. HEENT: No oral lesion. Anicteric sclerae. Moist mucosa. NECK: No JVD, adenopathy, or thyromegaly. CARDIOVASCULAR: S1 and S2, regular. No murmurs, rubs, or gallops. LUNGS: Clear to auscultation bilaterally. No wheeze, rales, or rhonchi. ABDOMEN: Bowel sounds are positive, soft, nontender and nondistended. EXTREMITIES: No cyanosis, clubbing or edema. LABORATORY DATA: White count of 3.1 and hemoglobin is 11.0. Creatinine 0.6. ASSESSMENT: 1. Delirium, resolved. 2. Hypothyroidism. 3. Anxiety. 4. Peptic ulcer disease. PLAN: The patient is going to continue her Synthroid. She is tolerating her diet. She is only continuing her Protonix for peptic ulcer disease. She is on aspirin. She is comfortable. We will most likely discharge home, have her followup as an outpatient. Ramy Napier MD
[2016-10-10] MEDS: Pantoprazole 40 mg EC Tab PO SCH ×2 (06:14→06:26)
[2016-10-10 07:52] VITALS: BP 162/82; PULSE 56; RESP 18; TEMP 97.7; O2SAT 100
[2016-10-10] MEDS: Levothyroxine 50 MCG TAB PO SCH (10:04)
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
--- NOTE | 2016-10-11 08:08 | DS ---
Please see the discharge summary that was done yesterday. The patient had an episode where she was not responding. This was felt to be psychiatric in origin. She then eventually woke up. She is eating and is able to ambulate. She had a CT of the head that was done that shows no acute findings. She had an EKG, this shows sinus rhythm at 60. The patient improved and was asking to go home, so the patient was discharged. No chest pain, no shortness of breath, no headache. PHYSICAL EXAMINATION: VITAL SIGNS: Temperature is 97.7, pulse is 66, blood pressure 162/82, respirations are 18. GENERAL: The patient is lying in bed, flat, comfortable. HEENT: No oral lesion. Anicteric sclerae. Moist mucosa. NECK: No JVD, adenopathy, or thyromegaly. CARDIOVASCULAR: S1 and S2, regular. No murmurs, rubs, or gallops. LUNGS: Clear to auscultation bilaterally. No wheeze, rales, or rhonchi. ABDOMEN: Bowel sounds are positive, soft, nontender and nondistended. EXTREMITIES: no cyanosis, clubbing or edema. ASSESSMENT: 1. Delirium, resolved. 2. Hypothyroidism. 3. Anxiety. 4. Peptic ulcer disease. PLAN: The patient currently feels well. She is able to ambulate and eat. She is on Protonix daily for peptic ulcer disease. This will be continued. She is on Synthroid for her hypothyroidism. She is going to continue to follow with her primary care doctor. Condition is stable. Activities increase as tolerated. Follow with Dr. Galdamez in 1 to 2 weeks. Ramy Napier MD
--- NOTE | 2016-10-11 09:00 | CP.PCM.PCO ---
Physician Communication Note - Physician Communication Note Physician Communication Note: Pt was d/c yesterday, d/w today.
== END 2016-10-10 13:59 | disposition home or self-care (01) | DRG 948 ==
LOC: ED 09:05 → EROBSV 09:20 → ERH 13:52 → 2RNO 22:07 → 5RNO 10-08 15:45 → OBSVTOIN 10-09 17:38
PROVIDERS: ADMIT Internal Medicine Nephrology; ATTEND Internal Medicine Nephrology
DX: R41.0 Disorientation, unspecified (principal); K27.9 Peptic ulcer, site unspecified, unspecified as acute or chronic, without hemorrhage or perforation; E11.9 Type 2 diabetes mellitus without complications; I10 Essential (primary) hypertension; D72.819 Decreased white blood cell count, unspecified; R62.7 Adult failure to thrive; E03.9 Hypothyroidism, unspecified; J32.0 Chronic maxillary sinusitis; F41.9 Anxiety disorder, unspecified; E78.5 Hyperlipidemia, unspecified; K21.9 Gastro-esophageal reflux disease without esophagitis; E87.6 Hypokalemia; H40.9 Unspecified glaucoma; R51 Headache

== ENCOUNTER 2017-04-09 09:30 | Inpatient (IN) | payer MEDICARE, OTHER ==
[2017-04-09 09:49] VITALS: BMI 17.4
[2017-04-09] MEDS ORDERED: Pantoprazole 40 MG in Sodium Chloride 0.9% 100 ML IV STA (10:04)
[2017-04-09] MEDS ORDERED: Lactated Ringer's 500 ML in Lactated Ringer's 1,000 ML IV STA (10:04)
[2017-04-09] MEDS ORDERED: Alum-Mag Hydrox-Simethicone Susp (30 mL) PO STA (10:06)
--- NOTE | 2017-04-09 10:12 | ED PDOC ---
Arrival/HPI - General Chief Complaint: GI Problem Time Seen by Provider: 04/09/17 09:47 Historian: Patient - History of Present Illness Narrative History of Present Illness (Text): 04/09/17 10:11 A 66 year old female was brought in by EMS to the emergency department complaining of abdominal pain and "acid reflux" that developed 6 hours ago. Patient's daughter reports patient has difficulty belching.. Reports to giving patient Tums with no relief. Patient denies any other complaints at this time. PMD: Dr. Galdamez 04/09/17 18:11 Time/Duration: 4-6 hours Symptom Onset: Sudden Symptom Course: Unchanged Activities at Onset: Rest Context: Home Past Medical History - Provider Review Nursing Documentation Reviewed: Yes - Infectious Disease Hx of Infectious Diseases: None - Tetanus Immunization Tetanus Immunization: Unknown - Reproductive Menopause: Yes - Past Medical History Past Medical History: Non-Contributing - Cardiac Hx Cardiac Disorders: Yes Hx Angina: No Hx Cardiac Arrhythmia: No Hx Circulatory Problems: No Hx Congestive Heart Failure: No Hx Heart Murmur: No Hx Heart Transplant: No Hx Hypertension: Yes Hx Internal Defibrillator: No Hx Mitral Valve Prolapse: No Hx Pacemaker: No Hx Peripheral Edema: No Hx Peripheral Vascular Disease: No - Pulmonary Hx Respiratory Disorders: No Hx Asthma: No Hx Bronchitis: No Hx Chronic Obstructive Pulmonary Disease (COPD): No Hx Emphysema: No Hx Pneumonia: No Hx Respiratory Aspiration: No Hx Respiratory Tract Infection: No Hx Sleep Apnea: No Hx Tuberculosis: No - Neurological Hx Neurological Disorder: No Hx Alzheimer's Disease: No HX Cerebrovascular Accident: No Hx Dementia: No Hx Dizziness: No Hx Meningitis: No Hx Migraine: No Hx Parkinson's Disease: No Hx Seizures: No Hx Transient Ischemic Attacks (TIA): No - HEENT Hx HEENT Disorder: Yes Hx Blind: No Hx Cataracts: No Hx Deafness: No Hx Difficulty Chewing: No Hx Epistaxis: No Hx Glaucoma: Yes Hx Macular Degeneration: No - Renal Hx Renal Disorder: No - Endocrine/Metabolic Hx Endocrine Disorders: Yes Hx Adrenal Cancer: No Hx Diabetes Insipidus: No Hx Diabetes Mellitus Type 1: No Hx Diabetes Mellitus Type 2: Yes Hx Hyperthyroidism: No Hx Hypothyroidism: Yes Hx Systemic Lupus Erythematosus: No - Hematological/Oncological Hx Blood Disorders: No Hx AIDS: No Hx Anemia: No Hx Cancer: No Hx Chemotherapy: No Hx Cirrhosis: No Hx Hemophilia: No Hx Hepatitis A: No Hx Hepatitis B: No Hx Hepatitis C: No Hx Metastasis: No Hx Shingles: No Hx Sickle Cell Disease: No Hx Unexplained Bleeding: No - Integumentary Hx Dermatological Disorder: No Hx Basal Cell Carcinoma: No Hx Eczema: No Hx Melanoma: No Hx Psoriasis: No Hx Squamous Cell Carcinoma: No - Musculoskeletal/Rheumatological Hx Musculoskeletal Disorders: Yes Hx Falls: No Hx Unsteady Gait: Yes - Gastrointestinal Hx Gastrointestinal Disorders: Yes Hx Gastroesophageal Reflux: Yes - Genitourinary/Gynecological Hx Genitourinary Disorders: No - Psychiatric Hx Psychophysiologic Disorder: Yes Hx Bipolar Disorder: Yes Hx Depression: Yes Hx Substance Use: No - Past Surgical History Past Surgical History: No Previous - Surgical History Hx Cardiac Catheterization: Yes Hx Coronary Stent: No Other/Comment: X2 - Anesthesia Hx Anesthesia Reactions: No Hx Malignant Hyperthermia: No - Suicidal Assessment Feels Threatened In Home Enviroment: No Family/Social History - Physician Review Nursing Documentation Reviewed: Yes Family/Social History: No Known Family HX Smoking Status: Unknown If Ever Smoked Hx Alcohol Use: No Hx Substance Use: No Hx Substance Use Treatment: No Allergies/Home Meds Allergies/Adverse Reactions: Allergies No Known Allergies Allergy (Verified 04/09/17 16:18) Home Medications: Home Meds Medication Instructions Recorded Confirmed Levothyroxine [Synthroid] 50 mcg PO DAILY 03/09/15 04/09/17 Ergocalciferol (Vitamin D2) 50,000 unit PO QWK 09/20/16 04/09/17 [Vitamin D2] Review of Systems - Physician Review All systems were reviewed & negative as marked: Yes - Review of Systems ENT: Other (throat tightness) Gastrointestinal: Abdominal Pain Physical Exam Vital Signs Reviewed: Yes Vital Signs Temp Pulse Pulse Resp BP Pulse Ox 04/09/17 23:20 97.9 F 52 L 60 18 105/60 04/09/17 22:00 60 18 108/62 99 04/09/17 20:28 52 L 18 105/60 98 04/09/17 16:24 97.6 F 68 18 163/69 H 99 04/09/17 15:38 60 18 156/71 H 100 04/09/17 11:35 50 L 18 151/81 H 100 04/09/17 09:48 97.9 F 60 18 164/58 H 100 Temperature: Afebrile Blood Pressure: Hypertensive Pulse: Regular Respiratory Rate: Normal Appearance: Positive for: Well-Appearing, Non-Toxic, Comfortable Pain Distress: None Mental Status: Positive for: Alert and Oriented X 3 - Systems Exam Head: Present: Atraumatic, Normocephalic Pupils: Present: PERRL Extroacular Muscles: Present: EOMI Conjunctiva: Present: Normal Mouth: Present: Moist Mucous Membranes Neck: Present: Normal Range of Motion Respiratory/Chest: Present: Clear to Auscultation, Good Air Exchange. No: Respiratory Distress, Accessory Muscle Use Cardiovascular: Present: Regular Rate and Rhythm, Normal S1, S2. No: Murmurs Abdomen: Present: Tenderness (minimal epigastric tenderness), Normal Bowel Sounds. No: Distention, Peritoneal Signs Back: Present: Normal Inspection Upper Extremity: Present: Normal Inspection. No: Cyanosis, Edema Lower Extremity: Present: Normal Inspection. No: Edema Neurological: Present: GCS=15, CN II-XII Intact, Speech Normal Skin: Present: Warm, Dry, Normal Color. No: Rashes Psychiatric: Present: Alert, Oriented x 3, Normal Insight, Normal Concentration Medical Decision Making ED Course and Treatment: 04/09/17 10:09 Impression: A 66 year old female with abdominal pain, acid reflux. Plan: -- EKG -- chest xray -- labs -- Urinalysis -- Protonix, Zofran, Maalox -- Reassess and disposition Prior Visits: Notes and results from previous visits were reviewed. Patient was last seen in the emergency department on 10/07/16 for evaluation of AMS, unresponsive. Progress Notes: EKG: Ordered, reviewed, and independently interpreted the EKG. Rate : 51 BPM Rhythm : sinus bradycardia Interpretation : No ST/T wave changes 04/09/17 10:34 chest xray Creator : Harsha Lima MD IMPRESSION: No active disease. 04/09/17 13:47 CT Abdomen and Pelvis with contrast Creator : Harsha Lima MD IMPRESSION: No acute findings. 04/09/17 15:[address] pride. accepts for admission with hypomg. will need iv replacement. - Lab Interpretations Microbiology Results: Microbiology Results 04/09/17 11:40 Urine,Clean Catch Urine Culture - Final No Growth (<1,000 CFU/ML) Lab Results: 04/09/17 11:20 04/09/17 11:40 Lab Results 04/09/17 15:37: POC Glucose (mg/dL) 81 04/09/17 11:40: TSH 3rd Generation 3.83 04/09/17 11:40: Magnesium 0.9 L* 04/09/17 11:40: Sodium 131 L, Potassium 3.2 L, Chloride 101, Carbon Dioxide 17 L , Anion Gap 16, BUN 4 L, Creatinine 0.2 L, Est GFR ( Amer) > 60, Est GFR (Non-Af Amer) > 60, Random Glucose 31 L* D, Calcium 7.0 L, Total Bilirubin < 0.1 L, AST 6 L, ALT 21, Alkaline Phosphatase 36 L, Lactate Dehydrogenase 164 L, Total Creatine Kinase 34 L, Troponin I 0.02, Total Protein 2.8 L, Albumin 1.2 L , Globulin 1.6, Albumin/Globulin Ratio 0.8 L, Lipase 11 L 04/09/17 11:40: PT 21.8 H, INR 1.87 H, APTT 40.5 H 04/09/17 11:30: Urine Color Yellow, Urine Appearance Clear, Urine pH 6.0, Ur Specific [place] <= 1.005, Urine Protein Negative, Urine Glucose (UA) Negative, Urine Ketones Negative, Urine Blood Trace-intact H, Urine Nitrate Negative, Urine Bilirubin Negative, Urine Urobilinogen 0.2, Ur Leukocyte Esterase Trace H , Urine RBC 2 - 5, Urine WBC 5 - 10, Ur Epithelial Cells 3 - 4, Amorphous Sediment Few, Urine Bacteria Many, Urine Other Uyeast 04/09/17 11:23: POC Glucose (mg/dL) 77 04/09/17 11:20: WBC 4.9 D, RBC 4.13, Hgb 11.4 L, Hct 34.4 L, MCV 83.3 D, MCH 27.6, MCHC 33.1, RDW 12.4, Plt Count 338, MPV 9.6, Gran % 74.5 H, Lymph % (Auto ) 18.6 L, Orange % (Auto) 6.5 H, Eos % (Auto) 0.2 L, Baso % (Auto) 0.2, Gran # 3.68, Lymph # (Auto) 0.9 L, Orange # (Auto) 0.3, Eos # (Auto) 0.0, Baso # (Auto) 0.01 I have reviewed the lab results: Yes - RAD Interpretation Radiology Orders: 04/09/17 10:05 CHEST PORTABLE [RAD] Stat 04/09/17 12:32 ABD & PELVIS IV CONTRAST ONLY [CT] Stat - EKG Interpretation Interpreted by ED Physician: Yes Type: 12 lead EKG - Medication Orders Current Medication Orders: Levothyroxine Sodium (Synthroid) 50 mcg PO DAILY [facility] Last Admin: 04/10/17 11:09 Dose: 50 mcg Pantoprazole Sodium (Protonix Ec Tab) 40 mg PO ACB LAUREN Last Admin: 04/10/17 11:09 Dose: Not Given Non-Admin Reason: Patient Refused Polyethylene Glycol (Miralax) 17 gm PO DAILY LAUREN Potassium Phos/Sodium Phos (Neutra-Phos) 1 pkt PO TID [facility] Last Admin: 04/10/17 13:04 Dose: Not Given Non-Admin Reason: Patient Refused Discontinued Medications Al Hydrox/Mg Hydrox/Simethicone (Maalox Plus 30 Ml) 30 ml PO STAT STA Stop: 04/09/17 10:07 Last Admin: 04/09/17 11:10 Dose: 30 ml Lactated Ringer's 500 ml/ (Lactated Ringer's) 1,500 mls @ 1,000 mls/hr IV BOLUS STA Stop: 04/09/17 11:33 Last Admin: 04/09/17 11:10 Dose: 1,000 mls/hr eMAR Start Stop Document 04/09/17 11:10 OCS (Rec: 04/09/17 11:10 OCS [id number]) Intravenous Solution Start Date 04/09/17 Start Time 11:10 Magnesium Sulfate 2 gm/ Sodium (Chloride) 104 mls @ 102 mls/hr IVPB ONCE ONE Stop: 04/09/17 15:19 Last Admin: 04/09/17 14:52 Dose: 102 mls/hr eMAR Start Stop Document 04/09/17 14:52 OCS (Rec: 04/09/17 14:52 OCS [id number]) Intravenous Solution Start Date 04/09/17 Start Time 14:52 Magnesium Sulfate 2 gm/ Sodium (Chloride) 104 mls @ 102 mls/hr IV ONCE ONE Stop: 04/09/17 20:11 Last Admin: 04/09/17 20:50 Dose: 102 mls/hr eMAR Start Stop Document 04/09/17 20:50 JOL (Rec: 04/09/17 20:51 [facility] [id number] Intravenous Solution Start Date 04/09/17 Start Time 20:51 End Date 04/09/17 End time 21:51 Total Infusion Time 60 Potassium Phosphate 15 mmole/ (Dextrose/Sodium Chloride) 1,005 mls @ 100 mls/ hr IV [id number] LAUREN Stop: 04/10/17 05:14 Last Admin: 04/09/17 20:49 Dose: 100 mls/hr eMAR Start Stop Document 04/09/17 20:49 JOL (Rec: 04/09/17 20:49 [facility]OL [facility] [id number]) Intravenous Solution Start Date 04/09/17 Start Time 20:49 Lactulose (Enulose) 30 gm PO ONCE STA Stop: 04/09/17 19:08 Last Admin: 04/09/17 20:49 Dose: 30 gm Ondansetron HCl (Zofran Inj) 4 mg IVP STAT STA Stop: 04/09/17 10:05 Last Admin: 04/09/17 11:10 Dose: 4 mg IVP Administration Document 04/09/17 11:10 OCS (Rec: 04/09/17 11:10 OCS [id number]) Charges for Administration # of IVP Administrations 1 Pantoprazole Sodium (Protonix Inj) 40 mg IVP ONCE ONE Stop: 04/09/17 10:31 Last Admin: 04/09/17 11:10 Dose: 40 mg IVP Administration Document 04/09/17 11:10 OCS (Rec: 04/09/17 11:10 OCS [id number]) Charges for Administration # of IVP Administrations 1 Pneumococcal Polyvalent Vaccine (Pneumovax 23 Vaccine) 0.5 ml IM .ONCE ONE Stop: 04/09/17 23:40 Potassium Chloride (K-Dur 20 Meq Er Tab) 40 meq PO STAT STA Stop: 04/09/17 12:26 Last Admin: 04/09/17 20:50 Dose: Potassium Chloride (K-Dur 20 Meq Er Tab) 40 meq PO ONCE ONE Stop: 04/09/17 19:19 Last Admin: 04/09/17 20:50 Dose: 40 meq - Scribe Statement The provider has reviewed the documentation as recorded by the Raul Hummel Provider Scribe Attestation: All medical record entries made by the Susanaibtyson were at my direction and personally dictated by me. I have reviewed the chart and agree that the record accurately reflects my personal performance of the history, physical exam, medical decision making, and the department course for this patient. I have also personally directed, reviewed, and agree with the discharge instructions and disposition. Disposition/Present on Arrival - Present on Arrival Any Indicators Present on Arrival: No History of DVT/PE: No History of Uncontrolled Diabetes: Yes Urinary Catheter: No History of Decub. Ulcer: No History Surgical Site Infection Following: None - Disposition Have Diagnosis and Disposition been Completed?: Yes Diagnosis: Hypomagnesemia Disposition: HOSPITALIZED Disposition Time: 15:32 Patient Problems: Current Active Problems Problem Status Onset Hypomagnesemia Acute Condition: STABLE
--- NOTE | 2017-04-09 10:30 | RAD ---
HISTORY: abd pain COMPARISON: 10/07/2016 FINDINGS: LUNGS: No active pulmonary disease. PLEURA: No significant pleural effusion identified, no pneumothorax apparent. CARDIOVASCULAR: Normal. OSSEOUS STRUCTURES: No significant abnormalities. VISUALIZED UPPER ABDOMEN: Normal. OTHER FINDINGS: None. IMPRESSION: No active disease.
[2017-04-09 11:38] LABS: BASO # 0.01 K/mm3 (0.0-2.0); BASO % 0.2 % (0.0-3.0); EOS % 0.2 % (1.5-5.0); GRAN # 3.68 (1.4-6.5); GRAN % 74.5 % (50.0-68.0); HEMOGLOBIN 11.4 g/dL (12.0-16.0); LYMPH # 0.9 (1.2-3.4); LYMPH % 18.6 % (22.0-35.0); MEAN CELL VOLUME 83.3 fl (80.0-105.0); MEAN CORPUSCULAR HEMOGLOBIN 27.6 pg (25.0-35.0); MEAN CORPUSCULAR HGB CONC 33.1 g/dl (31.0-37.0); MEAN PLATELET VOLUME 9.6 fl (7.0-11.0); MONO # 0.3 (0.1-0.6); MONO % 6.5 % (1.0-6.0); RBC 4.13 10^6/uL (3.5-6.1); RED CELL DISTRIBUTION WIDTH 12.4 % (11.5-14.5); WHITE BLOOD COUNT 4.9 10^3/ul (4.5-11.0)
[2017-04-09 11:50] LABS: URINE APPEARANCE CLEAR (CLEAR); URINE BILIRUBIN NEGATIVE (NEGATIVE); URINE BLOOD TRACE-INTACT (NEGATIVE); URINE COLOR YELLOW (YELLOW); URINE GLUCOSE (UA) NEGATIVE (NEGATIVE); URINE LEUKOCYTE ESTERASE TRACE Leu/uL (NEGATIVE); URINE NITRATE NEGATIVE (NEGATIVE); URINE PROTEIN NEGATIVE mg/dL (<30 mg/dL); URINE UROBILINOGEN 0.2 E.U./dL (<1 E.U./dL)
[2017-04-09 11:57] LABS: URINE BACTERIA MANY (NEG)
[2017-04-09 11:58] LABS: URINE AMORPHOUS SEDIMENT FEW
[2017-04-09 12:24] LABS: ALB/GLOB RATIO 0.8 (1.1-1.8); ALBUMIN 1.2 g/dL (3.0-4.8); ALT/SGPT 21 U/L (7-56); AST/SGOT 6 U/L (14-36); BLOOD UREA NITROGEN 4 mg/dL (7-21); GFR AFRICAN-AMERICAN > 60; GFR NON-AFRICAN AMERICAN > 60; INR 1.87 (0.93-1.08); LIPASE 11 U/L (23-300); PARTIAL THROMBOPLASTIN TIME 40.5 Seconds (25.1-36.5); PROTHROMBIN TIME 21.8 SECONDS (9.4-12.5)
[2017-04-09 12:27] LABS: TROPONIN I 0.02 ng/mL
[2017-04-09] MEDS ORDERED: Iohexol 350 MG/100 ML VIAL ONE (12:49)
[2017-04-09] MEDS: Potassium Chloride 20 mEq ER Tab PO STA ×2 (13:36→20:50)
--- NOTE | 2017-04-09 13:45 | CT ---
PROCEDURE: CT Abdomen and Pelvis with contrast HISTORY: upper abd pain COMPARISON: None. TECHNIQUE: Contrast dose: 100 cc of Omni 350 Radiation dose: Total exam DLP = 176 mGy-cm. This CT exam was performed using one or more of the following dose reduction techniques: Automated exposure control, adjustment of the mA and/or kV according to patient size, and/or use of iterative reconstruction technique. FINDINGS: LOWER THORAX: Unremarkable. LIVER: Unremarkable. No gross lesion or ductal dilatation. GALLBLADDER AND BILE DUCTS: Unremarkable. PANCREAS: Unremarkable. No gross lesion or ductal dilatation. SPLEEN: Unremarkable. ADRENALS: Unremarkable. No mass. KIDNEYS AND URETERS: Unremarkable. No hydronephrosis. No solid mass. VASCULATURE: Unremarkable. No aortic aneurysm. BOWEL: Unremarkable. No obstruction. No gross mural thickening. Moderate to severe constipation APPENDIX: Normal appendix. PERITONEUM: Unremarkable. No free fluid. No free air. LYMPH NODES: Unremarkable. No enlarged lymph nodes. BLADDER: The bladder is distended REPRODUCTIVE: Unremarkable. BONES: No acute fracture. OTHER FINDINGS: None. IMPRESSION: No acute findings
[2017-04-09] MEDS ORDERED: Magnesium Sulfate 2 GM in Sodium Chloride 0.9% 100 ML IVPB ONE (14:18)
[2017-04-09] MEDS ORDERED: Magnesium Sulfate 2 GM in Sodium Chloride 0.9% 100 ML IV ONE (19:10)
[2017-04-09] MEDS ORDERED: POTASSIUM PHOSPHATE IV SCH (19:15)
[2017-04-09] MEDS ORDERED: NS IV SCH (19:15)
[2017-04-09] MEDS ORDERED: DEXTROSE IV SCH (19:15)
[2017-04-09] MEDS ORDERED: Potassium Chloride 20 mEq ER Tab PO ONE (19:18)
[2017-04-09] MEDS: Potassium & Sodium Phosphate PO SCH (20:50)
--- NOTE | 2017-04-09 21:25 | CARD ---
APPROVED REPORT EKG Measurement Heart [id number] <Conclusion> Sinus bradycardia Otherwise normal ECG
[2017-04-09] MEDS ORDERED: Influenza Vaccine 60 mcg/0.5 mL SYR (4YR UP) IM ONE (23:39)
[2017-04-09] MEDS ORDERED: Pneumococcal 23-Valent Vaccine IM ONE (23:39)
[2017-04-10 07:10] LABS: HEMOGLOBIN 10.8 g/dL (12.0-16.0); MEAN CELL VOLUME 85.4 fl (80.0-105.0); MEAN CORPUSCULAR HEMOGLOBIN 27.3 pg (25.0-35.0); MEAN PLATELET VOLUME 9.3 fl (7.0-11.0); RBC 3.96 10^6/uL (3.5-6.1); RED CELL DISTRIBUTION WIDTH 12.4 % (11.5-14.5)
[2017-04-10 07:51] LABS: ALB/GLOB RATIO 0.9 (1.1-1.8); ALBUMIN 3.6 g/dL (3.0-4.8); ALT/SGPT 17 U/L (7-56); AST/SGOT 32 U/L (14-36); BLOOD UREA NITROGEN 6 mg/dL (7-21); CALCIUM 8.5 mg/dL (8.4-10.5); GFR AFRICAN-AMERICAN > 60; GFR NON-AFRICAN AMERICAN > 60; MAGNESIUM 2.9 mg/dL (1.7-2.2)
[2017-04-10] MEDS: Potassium & Sodium Phosphate PO SCH ×4 (11:09→19:12)
[2017-04-10] MEDS: Pantoprazole 40 mg EC Tab PO SCH (11:09)
[2017-04-10] MEDS: Levothyroxine 50 MCG TAB PO SCH (11:09)
[2017-04-10 13:22] LABS: FOLATE 16.9 ng/mL
--- NOTE | 2017-04-10 13:29 | CP.PCM.CON ---
History of Present Illness - History of Present Illness History of Present Illness: orrest class III Seen and examined at the bedside earlier today, chart review. Request for GI consultation is for constipation. HPI: This is a 66-year-old female with a past medical history of the erosive gastropathy, duodenal ulcers, DM, HTN came to the emergency room with complaints of abdominal pain mainly in the epigastric area and acid reflux. The patient is on Protonix at home and is reported to be taking Tums with no relief. Patient denies any use of NSAIDs, no reports of nausea or vomiting. On admission the patient had a CT scan of abdomen and pelvis with only IV contrast that did not report any acute findings except for moderate to severe constipation. The patient reports no BM 3 days. She was given lactulose last night and reported to have a big large brown bowel movement. This was witnessed by her a.m. nurse. No reports of melena or bright red blood per rectum. The patient still has epigastric tenderness on palpation, denies shortness of breath or chest pain. The patient has poor dentition, her front tooth when he goes, the patient reports eating soft pasta. In review of her records she had an endoscopy on 09/22/2016 and gastric biopsies negative for H. pylori and intestinal metaplasia. PMH: GERD, HTN, DM, Hypothyroidism, Major depression, Anxiety, duodenal ulcers, erosive gastropathy PSH: egd 2016, otherwise denies cardiac or abdominal sx Allergies: NKDA MEDS: reviewed as per APR FHX: noncontributory at this time ROS: systems reviewed with positive findings, see HPI Past Patient History - Infectious Disease Hx of Infectious Diseases: None - Tetanus Immunizations Tetanus Immunization: Unknown - Past Social History Smoking Status: Never Smoked - CARDIAC Hx Cardiac Disorders: Yes Hx Angina: No Hx Cardia Arrhythmia: No Hx Circulatory Problems: No Hx Congestive Heart Failure: No Hx Heart Murmur: No Hx Heart Transplant: No Hx Hypertension: Yes Hx Internal Defibrillator: No Hx Mitral Valve Prolapse: No Hx Pacemaker: No Hx Peripheral Edema: No Hx Peripheral Vascular Disease: No - PULMONARY Hx Respiratory Disorders: No Hx Asthma: No Hx Bronchitis: No Hx Chronic Obstructive Pulmonary Disease (COPD): No Hx Emphysema: No Hx Pneumonia: No Hx Respiratory Aspiration: No Hx Respiratory Tract Infection: No Hx Sleep Apnea: No Hx Tuberculosis: No - NEUROLOGICAL Hx Neurological Disorder: No Hx Alzheimer's Disease: No HX Cerebrovascular Accident: No Hx Dementia: No Hx Dizziness: No Hx Meningitis: No Hx Migraine: No Hx Parkinson's Disease: No Hx Seizures: No Hx Transient Ischemic Attacks (TIA): No - HEENT Hx HEENT Problems: Yes Hx Blind: No Hx Cataracts: No Hx Deafness: No Hx Difficulty Chewing: No Hx Epistaxis: No Hx Glaucoma: Yes Hx Macular Degeneration: No Other/Comment: LOOSE FRONT TEETH - RENAL Hx Chronic Kidney Disease: No - ENDOCRINE/METABOLIC Hx Endocrine Disorders: Yes Hx Adrenal Cancer: No Hx Diabetes Insipidus: No Hx Diabetes Mellitus Type 1: No Hx Diabetes Mellitus Type 2: Yes Hx Hyperthyroidism: No Hx Hypothyroidism: Yes Hx Systemic Lupus Erythematosus: No - HEMATOLOGICAL/ONCOLOGICAL Hx Blood Disorders: No Hx AIDS: No Hx Anemia: No Hx Cancer: No Hx Chemotherapy: No Hx Cirrhosis: No Hx Hemophilia: No Hx Hepatitis A: No Hx Hepatitis B: No Hx Hepatitis C: No Hx Metastesis: No Hx Shingles: No Hx Sickle Cell Disease: No Hx Unexplained Bleeding: No - INTEGUMENTARY Hx Dermatological Problems: Yes Hx Basil Cell: No Hx Eczema: No Hx Melanoma: No Hx Psoriasis: No Hx Squamous Cell: No - MUSCULOSKELETAL/RHEUMATOLOGICAL Hx Musculoskeletal Disorders: Yes Hx Falls: No Hx Unsteady Gait: Yes - GASTROINTESTINAL Hx Gastrointestinal Disorders: Yes Hx Gastroesophageal Reflux: Yes - GENITOURINARY/GYNECOLOGICAL Hx Genitourinary Disorders: No - PSYCHIATRIC Hx Psychophysiologic Disorder: Yes Hx Bipolar Disorder: Yes Hx Depression: Yes Hx Substance Use: No - SURGICAL HISTORY Hx Surgeries: Yes Hx Cardiac Catheterization: Yes Hx Coronary Stent: No Other/Comment: X2 - ANESTHESIA Hx Anesthesia Reactions: No Hx Malignant Hyperthermia: No Meds Allergies/Adverse Reactions: Allergies Allergy/AdvReac Type Severity Reaction Status Date / Time No Known Allergies Allergy Verified 04/09/17 16:18 - Medications Medications: Current Medications Levothyroxine Sodium (Synthroid) 50 mcg PO DAILY [facility] Last Admin: 04/10/17 11:09 Dose: 50 mcg Pantoprazole Sodium (Protonix Ec Tab) 40 mg PO ACB [facility] Last Admin: 04/10/17 11:09 Dose: Not Given Polyethylene Glycol (Miralax) 17 gm PO DAILY [facility] Potassium Phos/Sodium Phos (Neutra-Phos) 1 pkt PO TID [facility] Last Admin: 04/10/17 13:04 Dose: Not Given Physical Exam - Constitutional Appears: No Acute Distress - Head Exam Head Exam: NORMOCEPHALIC - Eye Exam Eye Exam: Normal appearance. absent: Scleral icterus - ENT Exam ENT Exam: Mucous Membranes Moist Additional comments: loose teeth, poor dentition - Neck Exam Neck exam: Positive for: Normal Inspection - Respiratory Exam Respiratory Exam: Decreased Breath Sounds, NORMAL BREATHING PATTERN. absent: Rales, Wheezes, Respiratory Distress - Cardiovascular Exam Cardiovascular Exam: +S1, +S2 - GI/Abdominal Exam GI & Abdominal Exam: Normal Bowel Sounds, Soft, Tenderness (epigastric). absent : Guarding, Rebound - Extremities Exam Extremities exam: Positive for: pedal pulses present. Negative for: calf tenderness, pedal edema - Neurological Exam Neurological exam: Alert, Oriented x3 - Skin Skin Exam: Dry, Warm Results - Vital Signs Recent Vital Signs: Last Vital Signs Temp 98.4 F 04/10/17 07:30 Pulse 58 L 04/10/17 07:30 Resp 18 04/10/17 07:30 BP 138/67 04/10/17 07:30 Pulse Ox 100 04/10/17 07:30 - Labs Result Diagrams: 04/10/17 06:15 04/10/17 06:15 Labs: Laboratory Results - last 24 hr 04/10/17 04/10/17 04/10/17 02:18 06:15 06:15 WBC 7.0 D RBC 3.96 Hgb 10.8 L Hct 33.8 L MCV 85.4 MCH 27.3 MCHC 32.0 RDW 12.4 Plt Count 276 MPV 9.3 Sodium 141 Potassium 3.6 Chloride 96 L Carbon Dioxide 37 H Anion Gap 13 BUN 6 L Creatinine 0.6 L Est GFR ( Amer) > 60 Est GFR (Non-Af Amer) > 60 POC Glucose (mg/dL) 98 Random Glucose 113 H Calcium 8.5 Phosphorus 4.0 Magnesium 2.9 H Total Bilirubin 0.3 AST 32 ALT 17 Alkaline Phosphatase 135 H D Total Protein 7.4 Albumin 3.6 Globulin 3.8 Albumin/Globulin Ratio 0.9 L 25-OH Vitamin D Total 04/10/17 04/10/17 04/10/17 06:15 07:10 11:34 WBC RBC Hgb Hct MCV MCH MCHC RDW Plt Count MPV Sodium Potassium Chloride Carbon Dioxide Anion Gap BUN Creatinine Est GFR ( Amer) Est GFR (Non-Af Amer) POC Glucose (mg/dL) 111 H 87 Random Glucose Calcium Phosphorus Magnesium Total Bilirubin AST ALT Alkaline Phosphatase Total Protein Albumin Globulin Albumin/Globulin Ratio 25-OH Vitamin D Total 13.2 L 04/10/17 12:40 WBC RBC Hgb Hct MCV MCH MCHC RDW Plt Count MPV Sodium Potassium Chloride Carbon Dioxide Anion Gap BUN Creatinine Est GFR ( Amer) Est GFR (Non-Af Amer) POC Glucose (mg/dL) 119 H Random Glucose Calcium Phosphorus Magnesium Total Bilirubin AST ALT Alkaline Phosphatase Total Protein Albumin Globulin Albumin/Globulin Ratio 25-OH Vitamin D Total Assessment & Plan - Assessment and Plan (Free Text) Assessment: Assessment: Constipation Epigastric pain History of duodenal ulcers and gastric erosions Diabetes mellitus Elevated alkaline phosphatase s/p Electrolyte imbalance, improved potassium/now elevated magnesium History of depression Hypertension Plan: Continue Protonix Change diet to advance bite-size soft foods monitor electrolytes Start MiraLAX daily, hold for stools greater than 2 a day Request for abdominal ultrasound rule out any gallstones Patient may benefit from elective outpatient colonoscopy in view of severe constipation If continued to have epigastric pain and abdominal ultrasound negative may benefit from endoscopy rule out any peptic ulcer disease Thank you for this consult and for allowing us to participate in your patient's care, further recommendations based upon clinical course. Seen and discussed with Dr. Patterson.
[2017-04-10] MEDS ORDERED: Alum-Mag Hydrox-Simethicone Susp (30 mL) PO STA (17:03)
--- NOTE | 2017-04-11 03:43 | HP ---
CHIEF COMPLAINT AND HISTORY OF PRESENT ILLNESS: This is a 66-year-old female, who is coming into the hospital with complaints of abdominal pain and she complains of . The patient says that she developed these symptoms about 6 hours ago. She was brought in by her daughter. She is still complaining of belching. The patient has been taking Tums with no relief. The patient follows with Dr. Galdamez who is her primary. She has been seen by me in the past. She is not able to give much information regarding her symptoms except what was mentioned. Very limited review of symptoms. There is a language barrier as well as cognitive issues. I am not sure if she has underlying dementia, but I believe that she does have dementia from my experience with prior admissions. ALLERGIES: NO KNOWN DRUG ALLERGIES. HOME MEDICATIONS: Synthroid, vitamin D. PAST MEDICAL HISTORY: Peptic ulcer disease, diabetes type 2, hypertension, constipation. PAST SURGICAL HISTORY: She had an EGD in 2017. FAMILY HISTORY: Noncontributory. SOCIAL HISTORY: She lives with her spouse. She denies smoking or drinking. PHYSICAL EXAMINATION: VITAL SIGNS: Temperature is 98.4, pulse of 58, blood pressure 138/67, respirations 18, O2 saturation 100%. Height is 5 feet 2 inches, weight is 95 pounds, BMI is 17.4. GENERAL: The patient lying in bed, uncomfortable, and in no acute distress. HEENT: Atraumatic and normocephalic. Anicteric sclerae. Moist mucosa. [place] conjunctivae. No oral lesions. NECK: No JVD, anterior and posterior adenopathy, thyromegaly, or bruits. CARDIOVASCULAR: S1 and S2 regular. No murmur, rubs, or gallop. LUNGS: Clear to auscultation bilaterally. No wheezes, rales, or rhonchi. ABDOMEN: Bowel sounds are positive. Soft, nontender and nondistended. No hepatosplenomegaly. No rebound and no guarding EXTREMITIES: No cyanosis, clubbing, or edema. NEUROLOGIC: No facial asymmetry. Tongue is midline. No uvula deviation. Power is 5/5 upper extremity and lower extremity. Sensation intact in upper extremity and lower extremity. PSYCHIATRIC: She is alert, awake and oriented x1. Difficult to do full exam. GENITOURINARY: No CVA tenderness. VASCULAR: 2+ pulses in the carotid pulses and pedal pulses. SKIN: No erythema or nodules SPINE: Shows normal curvature. LABORATORY DATA: White count of 4.9, hemoglobin is 11.4, platelet count is 338. INR is 1.87, with a PTT of 48.5. Chemistry shows sodium is 131, potassium 3.2, creatinine 0.2, with a random glucose of 71, calcium is 7.0, AST is 6, ALT is 21, CK is 34, her albumin is 1.2, lipase is 11, TSH is 3.83. She has vitamin D that is 13.2, folate of 16.9, B12 is 261. Urine done shows blood that is trace, nitrites are negative, bilirubin is negative. A chest x-ray done show no active disease. EKG shows a heart rate of 51, sinus bradycardia, QTc is 411. CT of the abdomen and pelvis shows no acute findings. There is constipation that is seen as moderate. ASSESSMENT: 1. Constipation. 2. Hyponatremia. 3. Hypokalemia. 4. Hypomagnesemia. 5. Hypoalbuminemia. 6. Malnutrition, moderate. PLAN: The patient is admitted to the hospital. She is complaining of abdominal pain. She has not been eating well. She is malnourished based on her low albumin. Her weight is 95 pounds. Her BMI is 17. The patient was given lactulose for her constipation. She was placed on Ringer's lactate for hydration. She had potassium that was replaced as well as magnesium. The patient has been placed on phosphorus replacement. She is on Synthroid for hypothyroidism. Her TSH is normal. She has an ultrasound of the abdomen that is ordered. The patient has been seen by GI, I appreciate their input. I believe that most of the abdominal issues are related to her constipation. She had initially elevated alk phos of 135. Her low calcium is normal after correction, with a low albumin, which is about 9.4 of calcium. We will await further input from organizational development consultant. The patient is physical therapy evaluation. She is able to ambulate. Ramy Napier MD
[2017-04-11] MEDS: Pantoprazole 40 mg EC Tab PO SCH (07:40)
--- NOTE | 2017-04-11 09:08 | US ---
HISTORY: Elevated LFT/epigastric pain COMPARISON: Comparison is made to the previous CT of the abdomen dated 04/09/2017 TECHNIQUE: Sonographic evaluation of the abdomen. FINDINGS: LIVER: Measures 12.1 cm. Normal echogenicity of the liver parenchyma. No mass. No intrahepatic bile duct dilatation. GALLBLADDER: There are gallstones and sludge noted in the gallbladder. No evidence of significant gallbladder wall thickening. No evidence of pericholecystic fluid. No sonographic Lewis's sign noted during the exam. COMMON BILE DUCT: Measures 5.9 mm. No stones. No dilatation. PANCREAS: Unremarkable as visualized. No mass. No ductal dilatation. RIGHT KIDNEY: Measures 8.5 x 4.4 x 4.7cm. Normal echogenicity. No calculus, mass, or hydronephrosis. LEFT KIDNEY: Measures 10 x 4.9 x 4.1cm. Normal echogenicity. No calculus, mass, or hydronephrosis. SPLEEN: Normal in size and contour. No mass. AORTA: No aneurysmal dilatation. IVC: Unremarkable. OTHER FINDINGS: None. IMPRESSION: Gallbladder stones and sludge without ultrasound evidence of acute cholecystitis. No ultrasound evidence of biliary obstruction.
--- NOTE | 2017-04-11 09:37 | PN ---
DATE: SUBJECTIVE: The patient has no complaints of any chest pain. No shortness of breath. No headaches. No dizziness. PHYSICAL EXAMINATION VITAL SIGNS: Temperature is 98.1, pulse of 54, blood pressure 112/62, respirations 19. GENERAL: The patient is lying in bed, flat, comfortable. HEENT: No oral lesion. Anicteric sclerae. Moist mucosa. NECK: No JVD, adenopathy, or thyromegaly. CARDIOVASCULAR: S1 and S2, regular. No murmurs, rubs, or gallops. LUNGS: Clear to auscultation bilaterally. No wheeze, rales, or rhonchi. ABDOMEN: Bowel sounds are positive. Soft, nontender and nondistended. EXTREMITIES: No cyanosis, clubbing or edema. ASSESSMENT 1. Constipation. 2. Hyponatremia, improved. 3. Hypokalemia, improved. 4. Hypomagnesemia, improved. 5. Hypoalbuminemia. 6. Malnutrition, moderate. 7. Hypothyroidism. PLAN: The patient is currently comfortable. Her electrolytes are improved. She is on Synthroid for hypothyroidism. She did have bowel movements. She has been complaining of epigastric discomfort. She was seen by GI. She does seem to have underlying anxiety. I gave her Xanax yesterday to help with her anxiety. We will see the patient if the patient qualifies for TCU. Ramy Napier MD
[2017-04-11] MEDS ORDERED: POLYETHYLENE GLYCOL 3350 17 GM/Dose PACKET PO SCH ×2 (10:00→18:00)
[2017-04-11] MEDS: Levothyroxine 50 MCG TAB PO SCH (10:08)
--- NOTE | 2017-04-11 15:32 | CP.PCM.PN ---
<Amie Rock - Last Filed: 04/11/17 15:32> Subjective - Date & Time of Evaluation Date of Evaluation: 04/11/17 Time of Evaluation: 10:35 - Subjective Subjective: Seen and examined at the bedside earlier today, chart review. Patient reports no further bowel movement except for yesterday. Still complaining of epigastric discomfort, no reports of nausea vomiting, shortness of breath or chest pain. Patient went for abdominal ultrasound found to have cholelithiasis and sludge, CBD measured 5.9 mm no dilatation or stones. Objective - Vital Signs/Intake and Output Vital Signs (last 24 hours): Temp Pulse Resp BP Pulse Ox 98.7 F 56 L 19 114/60 98 04/11/17 07:50 04/11/17 07:50 04/11/17 07:50 04/11/17 07:50 04/11/17 07:50 Intake and Output: 04/11/17 04/11/17 06:59 18:59 Intake Total 720 780 Balance 720 780 - Medications Medications: Current Medications Levothyroxine Sodium (Synthroid) 50 mcg PO DAILY [facility] Last Admin: 04/11/17 10:08 Dose: 50 mcg Pantoprazole Sodium (Protonix Ec Tab) 40 mg PO ACB [facility] Last Admin: 04/11/17 07:40 Dose: 40 mg Polyethylene Glycol (Miralax) 17 gm PO DAILY [facility] Last Admin: 04/11/17 10:08 Dose: 17 gm - Labs Labs: 04/10/17 06:15 04/10/17 06:15 PT 21.8 SECONDS (9.4-12.5) H 04/09/17 11:40 INR 1.87 (0.93-1.08) H 04/09/17 11:40 APTT 40.5 Seconds (25.1-36.5) H 04/09/17 11:40 - Constitutional Appears: No Acute Distress - Eye Exam Eye Exam: Normal appearance. absent: Scleral icterus - ENT Exam ENT Exam: Mucous Membranes Moist - Respiratory Exam Respiratory Exam: NORMAL BREATHING PATTERN. absent: Respiratory Distress - Cardiovascular Exam Cardiovascular Exam: +S1, +S2 - GI/Abdominal Exam GI & Abdominal Exam: Soft, Tenderness (epigastric), Normal Bowel Sounds. absent : Guarding, Organomegaly, Rebound - Extremities Exam Extremities Exam: absent: Calf Tenderness, Pedal Edema - Neurological Exam Neurological Exam: Alert, Awake, Oriented x3 - Skin Skin Exam: Dry, Warm Assessment and Plan - Assessment and Plan (Free Text) Assessment: Assessment: Constipation Epigastric pain History of duodenal ulcers and gastric erosions Cholelithiasis with sludge, CBD measures 5.9 mm Diabetes mellitus Elevated alkaline phosphatase History of depression Hypertension Plan: Continue Protonix continue advance bite-size soft foods monitor electrolytes increase MiraLAX twice a day, hold for stools greater than 2 a day Plan for endoscopy tomorrow, nothing by mouth post midnight. Discussed with patient and agree for procedure. Seen and discussed with Dr. Patterson. <[place] Patterson V - Last Filed: 04/12/17 00:23> Objective - Vital Signs/Intake and Output Vital Signs (last 24 hours): Temp Pulse Resp BP Pulse Ox 97.6 F 50 L 16 112/44 L 100 04/11/17 16:00 04/11/17 16:00 04/11/17 16:00 04/11/17 16:00 04/11/17 16:00 Intake and Output: 04/11/17 04/12/17 18:59 06:59 Intake Total 780 240 Balance 780 240 - Medications Medications: Current Medications Levothyroxine Sodium (Synthroid) 50 mcg PO DAILY [facility] Last Admin: 04/11/17 10:08 Dose: 50 mcg Pantoprazole Sodium (Protonix Ec Tab) 40 mg PO ACB [facility] Last Admin: 04/11/17 07:40 Dose: 40 mg Polyethylene Glycol (Miralax) 17 gm PO BID [facility] - Labs Labs: 04/10/17 06:15 04/10/17 06:15 PT 21.8 SECONDS (9.4-12.5) H 04/09/17 11:40 INR 1.87 (0.93-1.08) H 04/09/17 11:40 APTT 40.5 Seconds (25.1-36.5) H 04/09/17 11:40 Attending/Attestation - Attestation I have personally seen and examined this patient.: Yes I have fully participated in the care of the patient.: Yes I have reviewed all pertinent clinical information, including history, physical exam and plan: Yes Notes (Text): This is an addendum to GI progress report dictated by Amie Rock APN.The patient was seen and examined earlier. Medical records, lab studies, imagings were reviewed. Last 24 hours events reviewed. Agreed with the above treatment plan as outlined in Amie Rock APN's notes the with the addition of the following on examination abdomen soft mild tenderness present in the right upper quadrant area and epigastric History of peptic ulcer disease Sonogram reviewed Scheduled for an EGD in a.m. 04/12/17 00:22 04/12/17 00:23
[2017-04-12 07:16] LABS: MEAN CELL VOLUME 86.3 fl (80.0-105.0); MEAN CORPUSCULAR HGB CONC 31.3 g/dl (31.0-37.0); MEAN PLATELET VOLUME 9.5 fl (7.0-11.0); RBC 3.71 10^6/uL (3.5-6.1); RED CELL DISTRIBUTION WIDTH 12.6 % (11.5-14.5)
[2017-04-12 07:22] LABS: INR 1.07 (0.93-1.08); PROTHROMBIN TIME 12.3 SECONDS (9.4-12.5)
[2017-04-12 07:32] LABS: ALB/GLOB RATIO 0.9 (1.1-1.8); ALBUMIN 3.2 g/dL (3.0-4.8); ALT/SGPT 22 U/L (7-56); AST/SGOT 21 U/L (14-36); BLOOD UREA NITROGEN 13 mg/dL (7-21); CALCIUM 8.7 mg/dL (8.4-10.5); GFR AFRICAN-AMERICAN > 60; GFR NON-AFRICAN AMERICAN > 60; MAGNESIUM 2.3 mg/dL (1.7-2.2)
[2017-04-12 08:10] VITALS: BP 115/55; PULSE 81; RESP 18; TEMP 98.6; O2SAT 99
[2017-04-12] MEDS: Pantoprazole 40 mg EC Tab PO SCH (08:10)
[2017-04-12] MEDS ORDERED: Potassium Chloride 20 mEq ER Tab PO ONE (08:57)
[2017-04-12] MEDS ORDERED: Sodium Chloride 0.9% 1,000 ML IV SCH (09:45)
--- NOTE | 2017-04-12 10:18 | PN ---
DATE: SUBJECTIVE: The patient has lots of anxiety today. She says she does not want to get an EGD. She spoke with her daughter and the daughter tried to convince her, but the patient is still refusing. She does complain of reflux symptoms. PHYSICAL EXAMINATION VITAL SIGNS: Temperature is 98.6, pulse of 81, blood pressure 115/55, respirations 18. GENERAL: The patient is lying in bed, flat, comfortable. HEENT: No oral lesion. Anicteric sclerae. Moist mucosa. NECK: No JVD, adenopathy, or thyromegaly. CARDIOVASCULAR: S1 and S2, regular. No murmurs, rubs, or gallops. LUNGS: Clear to auscultation bilaterally. No wheeze, rales, or rhonchi. ABDOMEN: Bowel sounds are positive, soft, nontender and nondistended. EXTREMITIES: No cyanosis, clubbing or edema. LABORATORY DATA: She has a white count of 4.0, hemoglobin is 10, creatinine is 0.6, and potassium is 3.2. ASSESSMENT: 1. Gastroesophageal reflux disease. 2. Constipation, improved. 3. Hyponatremia, improved. 4. Hypokalemia. 5. Hypomagnesemia. 6. Malnutrition, moderate. 7. Hypothyroidism. PLAN: The patient is currently comfortable. She is on Protonix daily. She is on MiraLax for constipation. She is on Synthroid for hypothyroidism. I will give her potassium for her hypokalemia. We will see if she changes her mind, if not the patient can continue Protonix and be discharged home. Condition is stable. Activities, increase as tolerated. Ramy Napier MD
[2017-04-12] MEDS: Levothyroxine 50 MCG TAB PO SCH (10:59)
--- NOTE | 2017-04-12 17:37 | CP.PCM.PN ---
<Amie Rock - Last Filed: 04/12/17 17:35> Subjective - Date & Time of Evaluation Date of Evaluation: 04/12/17 Time of Evaluation: 10:25 - Subjective Subjective: S&E at bedside, chart reviewed, patient refuse to have EGD this am, complains of feeling dizzy, no acute complaints as per staff. Objective - Vital Signs/Intake and Output Vital Signs (last 24 hours): Temp Pulse Resp BP Pulse Ox 98.6 F 81 18 115/55 L 99 04/12/17 07:30 04/12/17 07:30 04/12/17 07:30 04/12/17 07:30 04/12/17 07:30 Intake and Output: 04/12/17 04/12/17 06:59 18:59 Intake Total 240 Balance 240 - Medications Medications: Current Medications Levothyroxine Sodium (Synthroid) 50 mcg PO DAILY [facility] Last Admin: 04/12/17 10:59 Dose: 50 mcg Pantoprazole Sodium (Protonix Ec Tab) 40 mg PO ACB [facility] Last Admin: 04/12/17 08:10 Dose: 40 mg Polyethylene Glycol (Miralax) 17 gm PO BID [facility] Last Admin: 04/12/17 10:59 Dose: 17 gm - Labs Labs: 04/12/17 06:20 04/12/17 06:20 PT 12.3 SECONDS (9.4-12.5) 04/12/17 06:20 INR 1.07 (0.93-1.08) 04/12/17 06:20 APTT 40.5 Seconds (25.1-36.5) H 04/09/17 11:40 - Constitutional Appears: No Acute Distress - Head Exam Head Exam: NORMOCEPHALIC - Eye Exam Eye Exam: Normal appearance. absent: Scleral icterus - ENT Exam ENT Exam: Mucous Membranes Moist - Neck Exam Neck Exam: Normal Inspection - Respiratory Exam Respiratory Exam: NORMAL BREATHING PATTERN. absent: Respiratory Distress - Cardiovascular Exam Cardiovascular Exam: +S1, +S2 - GI/Abdominal Exam GI & Abdominal Exam: Soft, Normal Bowel Sounds. absent: Guarding, Tenderness, Rebound - Extremities Exam Extremities Exam: absent: Calf Tenderness, Pedal Edema - Neurological Exam Neurological Exam: Alert, Awake, Oriented x3 - Skin Skin Exam: Dry, Warm Assessment and Plan - Assessment and Plan (Free Text) Assessment: Assessment: Constipation Epigastric pain History of duodenal ulcers and gastric erosions Cholelithiasis with sludge, CBD measures 5.9 mm Diabetes mellitus Elevated alkaline phosphatase History of depression Hypertension Plan: Continue Protonix continue advance bite-size soft foods monitor electrolytes trend LFT increase MiraLAX twice a day, hold for stools greater than 2 a day refused EGD scheduled for this am, spoke to PCP recommend elective EGD & colonoscopy for further evaluation, epigastric pain, and recent consitipation, pateint also cachectic appearing. Seen and discussed with Dr. Patterson. ADDENDUM: Dr. Patterson spoke to patient daughter over the phone during office hours, daughter was at [facility] visiting mother. <[place] Patterson V - Last Filed: 04/12/17 23:39> Objective - Vital Signs/Intake and Output Vital Signs (last 24 hours): Temp Pulse Resp BP Pulse Ox 98.6 F 81 18 115/55 L 99 04/12/17 07:30 04/12/17 07:30 04/12/17 07:30 04/12/17 07:30 04/12/17 07:30 - Labs Labs: 04/12/17 06:20 04/12/17 06:20 PT 12.3 SECONDS (9.4-12.5) 04/12/17 06:20 INR 1.07 (0.93-1.08) 04/12/17 06:20 APTT 40.5 Seconds (25.1-36.5) H 04/09/17 11:40 Attending/Attestation - Attestation I have personally seen and examined this patient.: Yes I have fully participated in the care of the patient.: Yes I have reviewed all pertinent clinical information, including history, physical exam and plan: Yes Notes (Text): This is an addendum to GI progress report dictated by Amie Rock APN.The patient was seen and examined earlier. Medical records, lab studies, imagings were reviewed. Last 24 hours events reviewed. Agreed with the above treatment plan as outlined in Amie Rock APN's notes the with the addition of the following 04/12/17 23:39
== END 2017-04-12 19:32 | disposition home or self-care (01) | DRG 392 ==
LOC: ED 09:32 → ERH 14:28 → OBSVTOIN 19:18 → ERH 21:16 → 5RNO 04-10 02:51
PROVIDERS: ADMIT Internal Medicine Nephrology; ATTEND Internal Medicine Nephrology
DX: K59.00 Constipation, unspecified (principal); E44.0 Moderate protein-calorie malnutrition; E83.42 Hypomagnesemia; E87.1 Hypo-osmolality and hyponatremia; Z68.1 Body mass index [BMI] 19.9 or less, adult; K21.9 Gastro-esophageal reflux disease without esophagitis; F03.90 Unspecified dementia, unspecified severity, without behavioral disturbance, psychotic disturbance, mood disturbance, and anxiety; E11.9 Type 2 diabetes mellitus without complications; I10 Essential (primary) hypertension; E87.6 Hypokalemia; E03.9 Hypothyroidism, unspecified; F41.9 Anxiety disorder, unspecified; K31.9 Disease of stomach and duodenum, unspecified; F32.9 Major depressive disorder, single episode, unspecified; K80.20 Calculus of gallbladder without cholecystitis without obstruction; R74.8 Abnormal levels of other serum enzymes; Z87.11 Personal history of peptic ulcer disease

== ENCOUNTER 2017-05-24 06:38 | Inpatient (IN) | payer MEDICARE, OTHER ==
[2017-05-24 06:51] VITALS: BMI 15.9
--- NOTE | 2017-05-24 08:13 | ED PDOC ---
Arrival/HPI - General Chief Complaint: ENT Problem Time Seen by Provider: 05/24/17 08:08 Historian: Patient, Family (daughter (translating)) - History of Present Illness Narrative History of Present Illness (Text): 05/24/17 08:10 A 67 year old female, whose past medical history includes hypertension, diabetes type 2, hypothyroidism, GERD, and cardiac catherization, whom is accompanied by daughter (translating in Vietnamese for patient), presents to the emergency department complaining of "throat closing" sensation since 02:00 today. Per daughter, patient has stated feeling as though something was in her throat. Has had similar symptom in the past when experiencing anxiety episodes. During episodes, patient begins acting abnormally. Patient also experiencing cough and palpitations, but denies any depression, suicidal ideation, or any other complaints at this time. PMD: Dr. Galdamez Past Medical History - Provider Review Nursing Documentation Reviewed: Yes - Infectious Disease Hx of Infectious Diseases: None - Tetanus Immunization Tetanus Immunization: Unknown - Reproductive Menopause: Yes - Past Medical History Past Medical History: Non-Contributing - Cardiac Hx Cardiac Disorders: Yes Hx Angina: No Hx Cardiac Arrhythmia: No Hx Circulatory Problems: No Hx Congestive Heart Failure: No Hx Heart Murmur: No Hx Heart Transplant: No Hx Hypertension: Yes Hx Internal Defibrillator: No Hx Mitral Valve Prolapse: No Hx Pacemaker: No Hx Peripheral Edema: No Hx Peripheral Vascular Disease: No - Pulmonary Hx Respiratory Disorders: No Hx Asthma: No Hx Bronchitis: No Hx Chronic Obstructive Pulmonary Disease (COPD): No Hx Emphysema: No Hx Pneumonia: No Hx Respiratory Aspiration: No Hx Respiratory Tract Infection: No Hx Sleep Apnea: No Hx Tuberculosis: No - Neurological Hx Neurological Disorder: No Hx Alzheimer's Disease: No HX Cerebrovascular Accident: No Hx Dementia: No Hx Dizziness: No Hx Meningitis: No Hx Migraine: No Hx Parkinson's Disease: No Hx Seizures: No Hx Transient Ischemic Attacks (TIA): No - HEENT Hx HEENT Disorder: Yes Hx Blind: No Hx Cataracts: No Hx Deafness: No Hx Difficulty Chewing: No Hx Epistaxis: No Hx Glaucoma: Yes Hx Macular Degeneration: No - Renal Hx Renal Disorder: No - Endocrine/Metabolic Hx Endocrine Disorders: Yes Hx Adrenal Cancer: No Hx Diabetes Insipidus: No Hx Diabetes Mellitus Type 1: No Hx Diabetes Mellitus Type 2: Yes Hx Hyperthyroidism: No Hx Hypothyroidism: Yes Hx Systemic Lupus Erythematosus: No - Hematological/Oncological Hx Blood Disorders: No Hx AIDS: No Hx Anemia: No Hx Cancer: No Hx Chemotherapy: No Hx Cirrhosis: No Hx Hemophilia: No Hx Hepatitis A: No Hx Hepatitis B: No Hx Hepatitis C: No Hx Metastasis: No Hx Shingles: No Hx Sickle Cell Disease: No Hx Unexplained Bleeding: No - Integumentary Hx Dermatological Disorder: No Hx Basal Cell Carcinoma: No Hx Eczema: No Hx Melanoma: No Hx Psoriasis: No Hx Squamous Cell Carcinoma: No - Musculoskeletal/Rheumatological Hx Musculoskeletal Disorders: Yes Hx Falls: No Hx Unsteady Gait: Yes - Gastrointestinal Hx Gastrointestinal Disorders: Yes Hx Gastroesophageal Reflux: Yes - Genitourinary/Gynecological Hx Genitourinary Disorders: No - Psychiatric Hx Psychophysiologic Disorder: Yes Hx Bipolar Disorder: Yes Hx Depression: Yes Hx Panic Disorder: Yes Hx Substance Use: No - Past Surgical History Past Surgical History: No Previous - Surgical History Hx Cardiac Catheterization: Yes Hx Section: Yes (x2) Hx Coronary Stent: No - Anesthesia Hx Anesthesia Reactions: No Hx Malignant Hyperthermia: No - Suicidal Assessment Feels Threatened In Home Enviroment: No Family/Social History - Physician Review Nursing Documentation Reviewed: Yes Family/Social History: No Known Family HX Smoking Status: Unknown If Ever Smoked Hx Alcohol Use: No Hx Substance Use: No Hx Substance Use Treatment: No Allergies/Home Meds Allergies/Adverse Reactions: Allergies No Known Allergies Allergy (Verified 05/24/17 06:44) Home Medications: Home Meds Medication Instructions Recorded Confirmed Levothyroxine [Synthroid] 50 mcg PO DAILY 03/09/15 05/24/17 Pantoprazole Sodium [Protonix] 40 mg PO DAILY 05/24/17 05/24/17 Review of Systems - Physician Review All systems were reviewed & negative as marked: Yes - Review of Systems Constitutional: Other (weakness) ENT: Other ("throat closing" sensation) Respiratory: Cough Cardiovascular: Palpitations Psychiatric: Anxiety (possible, according to daughter). absent: Depression, Suicidal Ideation Physical Exam Vital Signs Reviewed: Yes Vital Signs Temp Pulse Resp BP Pulse Ox 05/24/17 09:58 56 L 16 117/67 100 05/24/17 09:15 48 L 16 124/67 05/24/17 06:49 97.6 F 57 L 19 176/71 H 98 Temperature: Afebrile Blood Pressure: Hypertensive Pulse: Regular Respiratory Rate: Normal Pain Distress: None Mental Status: Positive for: Alert and Oriented X 3 Finger Stick Blood Glucose: 69 - Systems Exam Head: Present: Atraumatic, Normocephalic Pupils: Present: PERRL Extroacular Muscles: Present: EOMI Conjunctiva: Present: Normal Mouth: Present: Moist Mucous Membranes Neck: Present: Normal Range of Motion Respiratory/Chest: Present: Clear to Auscultation, Good Air Exchange. No: Respiratory Distress, Accessory Muscle Use Cardiovascular: Present: Regular Rate and Rhythm, Normal S1, S2. No: Murmurs Abdomen: No: Tenderness, Distention, Peritoneal Signs Back: Present: Normal Inspection Upper Extremity: Present: Normal Inspection. No: Cyanosis, Edema Lower Extremity: Present: Normal Inspection. No: Edema Neurological: Present: GCS=15, CN II-XII Intact, Speech Normal Skin: Present: Warm, Dry, Normal Color. No: Rashes Psychiatric: Present: Alert, Oriented x 3, Normal Insight, Normal Concentration , Anxious Medical Decision Making ED Course and Treatment: 05/24/17 08:14 Impression: 67 year old female with "throat closing" sensation. No acute findings on physical examination. Differential Diagnosis included but are not limited to: Anxiety vs. [place]. Plan: -- EKG -- Chest X-ray -- Labs -- Urinalysis -- Reassess and disposition Prior Visits: Notes and results from previous visits were reviewed. Patient was last seen in the emergency department on Progress Notes: EKG: Ordered, reviewed, and independently interpreted the EKG. Rate : 50 BPM Rhythm : Sinus bradycardia Interpretation : No ST-segment elevations or depressions, no T-wave inversions, normal intervals. Comparison : No previous EKG for comparison. 05/24/17 10:24 Soft tissue neck negative for foreign body. Labs reviewed and potassium low. Replaced with PO potassium and IV in NS. Patient is feeling a little better. Discussed case with Dr. Napier who will place on observation to Telemetry for Hypokalemia and requested Dr. Patterson for GI. - Lab Interpretations Lab Results: 05/24/17 09:00 05/24/17 09:00 Lab Results 05/24/17 09:00: Alcohol, Quantitative < 10 05/24/17 09:00: Salicylates < 1 L, Acetaminophen < 10.0 L 05/24/17 09:00: Sodium 138, Potassium 2.5 L* D, Chloride 94 L, Carbon Dioxide 34 H, Anion Gap 13, BUN 13, Creatinine 0.6 L, Est GFR ( Amer) > 60, Est GFR (Non-Af Amer) > 60, Random Glucose 91, Calcium 9.2, Total Bilirubin 0.1 L, AST 18, ALT 22, Alkaline Phosphatase 114, Total Protein 7.9, Albumin 3.8, Globulin 4.1, Albumin/Globulin Ratio 0.9 L 05/24/17 09:00: WBC 4.4 L, RBC 4.36, Hgb 11.8 L, Hct 34.6 L, MCV 79.4 L D, MCH 27.1, MCHC 34.1, RDW 12.5, Plt Count 273, MPV 9.1, Gran % 67.2, Lymph % (Auto) 26.6, [place] % (Auto) 5.7, Eos % (Auto) 0.0 L, Baso % (Auto) 0.5, Gran # 2.96, Lymph # (Auto) 1.2, [place] # (Auto) 0.3, Eos # (Auto) 0.0, Baso # (Auto) 0.02 05/24/17 06:43: POC Glucose (mg/dL) 69 - RAD Interpretation Radiology Orders: 05/24/17 08:11 CHEST PORTABLE [RAD] Stat 05/24/17 08:35 NECK SOFT TISSUE [RAD] Stat - Medication Orders Current Medication Orders: Potassium Chloride 10 meq/ (Sodium Chloride) 1,005 mls @ 100 mls/hr IV .Q10H3M [facility] Discontinued Medications Famotidine (Pepcid 20mg/50ml Premix) 20 mg in 50 mls @ 100 mls/hr IVPB STAT STA Stop: 05/24/17 09:04 Last Admin: 05/24/17 09:06 Dose: 100 mls/hr eMAR Start Stop Document 05/24/17 09:06 MS (Rec: 05/24/17 09:06 MS [id number]) Intravenous Solution Start Date 05/24/17 Start Time 09:06 End Date 05/24/17 End time 09:36 Total Infusion Time 30 Lorazepam (Ativan) 1 mg IVP ONCE ONE PRN Reason: Protocol Stop: 05/24/17 08:35 Last Admin: 05/24/17 09:06 Dose: 1 mg IVP Administration Document 05/24/17 09:06 MS (Rec: 05/24/17 09:07 MS [id number]) Charges for Administration # of IVP Administrations 1 Potassium Chloride (K-Dur 20 Meq Er Tab) 40 meq PO STAT STA Stop: 05/24/17 09:57 - Scribe Statement The provider has reviewed the documentation as recorded by the Raul Lo Provider Scribe Attestation: All medical record entries made by the Scribe were at my direction and personally dictated by me. I have reviewed the chart and agree that the record accurately reflects my personal performance of the history, physical exam, medical decision making, and the department course for this patient. I have also personally directed, reviewed, and agree with the discharge instructions and disposition. Disposition/Present on Arrival - Present on Arrival Any Indicators Present on Arrival: Yes History of DVT/PE: No History of Uncontrolled Diabetes: Yes Urinary Catheter: No History of Decub. Ulcer: No History Surgical Site Infection Following: None - Disposition Have Diagnosis and Disposition been Completed?: Yes Diagnosis: Hypokalemia Disposition: HOSPITALIZED Disposition Time: 10:26 Patient Plan: Observation Condition: FAIR Referrals: Titi Galdamez MD [Primary Care Provider] - Follow up with primary Forms: Lola Pirindola (Iraqi)
[2017-05-24] MEDS ORDERED: Famotidine 20mg/50ml 20 MG/50 ML BAG IVPB STA (08:35)
--- NOTE | 2017-05-24 08:41 | RAD ---
HISTORY: psych COMPARISON: 04/09/2017 FINDINGS: LUNGS: No active pulmonary disease. Bilateral hyperaeration- background COPD/emphysema inferred PLEURA: No significant pleural effusion identified, no pneumothorax apparent. CARDIOVASCULAR: Normal. OSSEOUS STRUCTURES: Thoracic spondylosis VISUALIZED UPPER ABDOMEN: Normal. OTHER FINDINGS: None. IMPRESSION: No active disease. No interval pathology
[2017-05-24 09:23] LABS: BASO # 0.02 K/mm3 (0.0-2.0); BASO % 0.5 % (0.0-3.0); GRAN # 2.96 (1.4-6.5); GRAN % 67.2 % (50.0-68.0); HEMOGLOBIN 11.8 g/dL (12.0-16.0); LYMPH # 1.2 (1.2-3.4); LYMPH % 26.6 % (22.0-35.0); MEAN CELL VOLUME 79.4 fl (80.0-105.0); MEAN CORPUSCULAR HEMOGLOBIN 27.1 pg (25.0-35.0); MEAN CORPUSCULAR HGB CONC 34.1 g/dl (31.0-37.0); MEAN PLATELET VOLUME 9.1 fl (7.0-11.0); MONO # 0.3 (0.1-0.6); MONO % 5.7 % (1.0-6.0); RBC 4.36 10^6/uL (3.5-6.1); RED CELL DISTRIBUTION WIDTH 12.5 % (11.5-14.5); WHITE BLOOD COUNT 4.4 10^3/ul (4.5-11.0)
[2017-05-24 09:34] LABS: ACETAMINOPHEN < 10.0 ug/ml (10.0-20.0); SALICYLATE < 1 mg/dL (2.0-20.0)
[2017-05-24 09:40] LABS: ALB/GLOB RATIO 0.9 (1.1-1.8); ALBUMIN 3.8 g/dL (3.0-4.8); ALT/SGPT 22 U/L (7-56); AST/SGOT 18 U/L (14-36); BLOOD UREA NITROGEN 13 mg/dL (7-21); CALCIUM 9.2 mg/dL (8.4-10.5); GFR AFRICAN-AMERICAN > 60; GFR NON-AFRICAN AMERICAN > 60
[2017-05-24] MEDS ORDERED: Potassium Chloride 20 mEq ER Tab PO STA (09:56)
--- NOTE | 2017-05-24 10:15 | RAD ---
PROCEDURE: Radiographs of the neck (soft tissue). HISTORY: foreign body sensation COMPARISON: None. TECHNIQUE: Frontal and Lateral Radiographs of the neck, optimized for soft tissue visualization. FINDINGS: SOFT TISSUES: There are multiple hyperdensity present -immediately anterior to C4 vertebral body the anterior C4-5 level and further anterior in the region of the posterior thyroid car cartilage. Although many of these are thyroid and/or arachnoid likely related calcifications or ossifications. Additional opaque foreign body is not excluded. Particularly at and just above the epiglottic level. Cannot be excluded. CERVICAL SPINE: Anterior cervical spondylosis. Cervical spine straightening. OTHER FINDINGS: Patient is nearly edentulous. IMPRESSION: Thyroid and likely arytenoid cartilage calcifications/ossifications. There are numerous posterior projecting hyperdensities just above the epiglottis on the lateral view: Anterior to the C4 and C5 vertebral bodies. On . The filamentous like radiopacity on the left side may be extrinsic to the patient. Clinical correlation is essential here. Based on the multiplicity of hyperdensities and their positions possibility of a calcific and/or bony foreign body cannot be excluded.
[2017-05-24 10:32] LABS: URINE BILIRUBIN NEGATIVE (NEGATIVE); URINE BLOOD NEGATIVE (NEGATIVE); URINE GLUCOSE (UA) NEGATIVE (NEGATIVE); URINE LEUKOCYTE ESTERASE NEGATIVE Leu/uL (NEGATIVE); URINE PROTEIN NEGATIVE mg/dL (<30 mg/dL); URINE UROBILINOGEN 0.2 E.U./dL (<1 E.U./dL)
[2017-05-24 10:33] LABS: URINE APPEARANCE CLEAR (CLEAR); URINE COLOR LIGHT YELLOW (YELLOW)
[2017-05-24 11:06] LABS: BARBITURATES, UR NEGATIVE (NEGATIVE); BENZODIAZEPINES, UR NEGATIVE (NEGATIVE); OPIATES, UR NEGATIVE (NEGATIVE); PHENCYCLIDINE, UR NEGATIVE (NEGATIVE)
--- NOTE | 2017-05-24 19:17 | CARD ---
APPROVED REPORT EKG Measurement Heart [id number] MO [id number] [id number] <Conclusion> Sinus bradycardia Nonspecific T wave abnormality Abnormal ECG
[2017-05-24] MEDS ORDERED: Potassium Chloride 40 mEq/30 ml LIQ UD PO ONE (20:11)
[2017-05-25 06:43] LABS: MEAN CELL VOLUME 81.2 fl (80.0-105.0); MEAN CORPUSCULAR HEMOGLOBIN 26.3 pg (25.0-35.0); MEAN CORPUSCULAR HGB CONC 32.3 g/dl (31.0-37.0); MEAN PLATELET VOLUME 9.1 fl (7.0-11.0); RBC 3.73 10^6/uL (3.5-6.1); RED CELL DISTRIBUTION WIDTH 12.9 % (11.5-14.5); WHITE BLOOD COUNT 3.1 10^3/ul (4.5-11.0)
[2017-05-25 06:53] LABS: HEMOGLOBIN 9.8 g/dL (12.0-16.0)
[2017-05-25 07:24] LABS: ALB/GLOB RATIO 0.9 (1.1-1.8); ALT/SGPT 19 U/L (7-56); AST/SGOT 20 U/L (14-36); BLOOD UREA NITROGEN 9 mg/dL (7-21); CALCIUM 8.8 mg/dL (8.4-10.5); GFR AFRICAN-AMERICAN > 60; GFR NON-AFRICAN AMERICAN > 60
[2017-05-25] MEDS: Pantoprazole 40 mg EC Tab PO SCH (09:40)
[2017-05-25] MEDS: Levothyroxine 50 MCG TAB PO SCH (09:40)
[2017-05-25] MEDS ORDERED: Dextrose 50% SYRINGE Inj (50 ml) ONE (16:36)
--- NOTE | 2017-05-25 16:45 | CP.PCM.CON ---
<Amie Rock - Last Filed: 05/25/17 16:40> History of Present Illness - History of Present Illness History of Present Illness: Seen and examined at the bedside earlier today, chart review. Request for GI consult is for dyspepsia HPI: This is a 67-year-old female with a past medical history of GERD, diabetes mellitus type 2, hypothyroidism was brought to the emergency room by her daughter, patient mainly speaks French but does understand [place] Citizen, video door manager used, ID #[id number] name is Viviana. Patient complaining of feeling as though something was stuck in her throat, this patient does have history of anxiety no report of nausea or vomiting. Patient complains of increased gas and constipation. This patient has been seen by our service recently as 03/2017 , last admission patient scheduled for endoscopy but refused to have this done. She takes PPI at home does complain of heartburn, no episodes of nausea or vomiting. Denies any bleeding, patient has history of weight loss. On admission patient had neck soft tissue x-ray and this showed cartilage calcifications and ossification's in the thyroid, numerous posterior projecting hyperdensities above the epiglottis on the lateral view. Based on the multiplicity of hyperdensities and there positions possibility of a calcification and/or bony foreign body cannot be excluded. Most recent endoscopy was on 09/22/2016 and gastric biopsies negative for H. pylori and intestinal metaplasia. PMH: GERD, HTN, DM, Hypothyroidism, Major depression, Anxiety, duodenal ulcers, erosive gastropathy PSH: egd 2017, otherwise denies cardiac or abdominal sx Allergies: NKDA MEDS: reviewed as per APR FHX: noncontributory at this time ROS: systems reviewed with positive findings, see HPI Past Patient History - Infectious Disease Hx of Infectious Diseases: None - Tetanus Immunizations Tetanus Immunization: Unknown - Past Social History Smoking Status: Former Smoker - CARDIAC Hx Cardiac Disorders: Yes Hx Hypertension: Yes - PULMONARY Hx Respiratory Disorders: No - NEUROLOGICAL Hx Neurological Disorder: No - HEENT Hx HEENT Problems: Yes Hx Blind: No Hx Cataracts: No Hx Deafness: No Hx Difficulty Chewing: No Hx Epistaxis: No Hx Glaucoma: Yes Hx Macular Degeneration: No - RENAL Hx Chronic Kidney Disease: No - ENDOCRINE/METABOLIC Hx Endocrine Disorders: Yes Hx Hypothyroidism: Yes - HEMATOLOGICAL/ONCOLOGICAL Hx Blood Disorders: No Hx AIDS: No Hx Anemia: No Hx Cancer: No Hx Chemotherapy: No Hx Cirrhosis: No Hx Hemophilia: No Hx Hepatitis A: No Hx Hepatitis B: No Hx Hepatitis C: No Hx Metastesis: No Hx Shingles: No Hx Sickle Cell Disease: No Hx Unexplained Bleeding: No - INTEGUMENTARY Hx Dermatological Problems: Yes Other/Comment: frequent itching with multiple scabs on back and arms - MUSCULOSKELETAL/RHEUMATOLOGICAL Hx Musculoskeletal Disorders: Yes Hx Falls: No Hx Unsteady Gait: Yes - GASTROINTESTINAL Hx Gastrointestinal Disorders: Yes Hx Gastroesophageal Reflux: Yes Other/Comment: history of anorexia and weight loss - GENITOURINARY/GYNECOLOGICAL Hx Genitourinary Disorders: No - PSYCHIATRIC Hx Psychophysiologic Disorder: Yes Hx Anxiety: Yes Hx Substance Use: No - SURGICAL HISTORY Hx Surgeries: No - ANESTHESIA Hx Anesthesia Reactions: No Hx Malignant Hyperthermia: No Meds Allergies/Adverse Reactions: Allergies Allergy/AdvReac Type Severity Reaction Status Date / Time No Known Allergies Allergy Verified 05/24/17 06:44 - Medications Medications: Current Medications Potassium Chloride 10 meq/ (Sodium Chloride) 1,005 mls @ 100 mls/hr IV .Q10H3M [facility] Last Admin: 05/25/17 09:40 Dose: 100 mls/hr Levothyroxine Sodium (Synthroid) 50 mcg PO DAILY [facility] Last Admin: 05/25/17 09:40 Dose: 50 mcg Pantoprazole Sodium (Protonix Ec Tab) 40 mg PO DAILY [facility] Last Admin: 05/25/17 09:40 Dose: 40 mg Results - Vital Signs Recent Vital Signs: Last Vital Signs Temp 97.8 F 05/25/17 12:00 Pulse 46 L 05/25/17 12:00 Resp 18 05/25/17 12:00 BP 115/55 L 05/25/17 12:00 Pulse Ox 95 05/25/17 06:00 - Labs Result Diagrams: 05/25/17 06:15 05/25/17 06:15 Labs: Laboratory Results - last 24 hr 05/24/17 05/24/17 05/25/17 17:09 21:09 06:15 WBC 3.1 L D RBC 3.73 Hgb 9.8 L D Hct 30.3 L MCV 81.2 MCH 26.3 MCHC 32.3 RDW 12.9 Plt Count 240 MPV 9.1 Sodium Potassium Chloride Carbon Dioxide Anion Gap BUN Creatinine Est GFR ( Amer) Est GFR (Non-Af Amer) POC Glucose (mg/dL) 70 63 L Random Glucose Calcium Phosphorus Magnesium Total Bilirubin AST ALT Alkaline Phosphatase Total Protein Albumin Globulin Albumin/Globulin Ratio 05/25/17 05/25/17 05/25/17 06:15 07:30 11:18 WBC RBC Hgb Hct MCV MCH MCHC RDW Plt Count MPV Sodium 138 Potassium 3.9 Chloride 102 Carbon Dioxide 31 Anion Gap 9 L BUN 9 Creatinine 0.6 L Est GFR ( Amer) > 60 Est GFR (Non-Af Amer) > 60 POC Glucose (mg/dL) 80 79 Random Glucose 84 Calcium 8.8 Phosphorus 3.0 Magnesium 2.0 Total Bilirubin < 0.1 L AST 20 ALT 19 Alkaline Phosphatase 107 Total Protein 6.4 Albumin 3.0 Globulin 3.4 Albumin/Globulin Ratio 0.9 L 05/25/17 05/25/17 12:31 16:29 WBC RBC Hgb Hct MCV MCH MCHC RDW Plt Count MPV Sodium Potassium Chloride Carbon Dioxide Anion Gap BUN Creatinine Est GFR ( Amer) Est GFR (Non-Af Amer) POC Glucose (mg/dL) 75 66 Random Glucose Calcium Phosphorus Magnesium Total Bilirubin AST ALT Alkaline Phosphatase Total Protein Albumin Globulin Albumin/Globulin Ratio Assessment & Plan - Assessment and Plan (Free Text) Assessment: Assessment: GERD Foreign sensation in throat Weight loss Hypothyroidism Hypertension Status post hypokalemia Plan: Currently nothing by mouth for endoscopy this afternoon, continue IV fluids for hydration Patient is concerned regarding her blood sugar, explained to patient via door manager that her blood sugar will be checked and she is on IV fluids she can be given dextrose, also discussed with nurse at bedside. Continue PPI Monitor electrolytes Further recommendations after endoscopy, patient would benefit from colonoscopy which can be considered electively outpatient. Consent obtained from patient via telephone, spoke to patient daughter as well Katerina: [phone], Risk and benefits discussed. Thank you for this consult and follow us to participate in your patient's care. Seen and discussed with Dr. Patterson. <[place] Patterson V - Last Filed: 05/25/17 23:54> Meds - Medications Medications: Current Medications Potassium Chloride 10 meq/ (Sodium Chloride) 1,005 mls @ 100 mls/hr IV .Q10H3M [facility] Last Admin: 05/25/17 22:20 Dose: 100 mls/hr Sodium Chloride (Sodium Chloride 0.9%) 1,000 mls @ 100 mls/hr IV .Q10H [facility] Levothyroxine Sodium (Synthroid) 50 mcg PO DAILY [facility] Last Admin: 05/25/17 09:40 Dose: 50 mcg Pantoprazole Sodium (Protonix Ec Tab) 40 mg PO DAILY [facility] Last Admin: 05/25/17 09:40 Dose: 40 mg Results - Vital Signs Recent Vital Signs: Last Vital Signs Temp 98.1 F 05/25/17 19:50 Pulse 57 L 05/25/17 22:00 Resp 16 05/25/17 19:50 BP 164/56 H 05/25/17 19:50 Pulse Ox 98 05/25/17 19:50 - Labs Result Diagrams: 05/25/17 06:15 05/25/17 06:15 Labs: Laboratory Results - last 24 hr 05/24/17 05/25/17 05/25/17 21:09 06:15 06:15 WBC 3.1 L D RBC 3.73 Hgb 9.8 L D Hct 30.3 L MCV 81.2 MCH 26.3 MCHC 32.3 RDW 12.9 Plt Count 240 MPV 9.1 Sodium 138 Potassium 3.9 Chloride 102 Carbon Dioxide 31 Anion Gap 9 L BUN 9 Creatinine 0.6 L Est GFR ( Amer) > 60 Est GFR (Non-Af Amer) > 60 POC Glucose (mg/dL) 63 L Random Glucose 84 Calcium 8.8 Phosphorus 3.0 Magnesium 2.0 Total Bilirubin < 0.1 L AST 20 ALT 19 Alkaline Phosphatase 107 Total Protein 6.4 Albumin 3.0 Globulin 3.4 Albumin/Globulin Ratio 0.9 L 05/25/17 05/25/17 05/25/17 07:30 11:18 12:31 WBC RBC Hgb Hct MCV MCH MCHC RDW Plt Count MPV Sodium Potassium Chloride Carbon Dioxide Anion Gap BUN Creatinine Est GFR ( Amer) Est GFR (Non-Af Amer) POC Glucose (mg/dL) 80 79 75 Random Glucose Calcium Phosphorus Magnesium Total Bilirubin AST ALT Alkaline Phosphatase Total Protein Albumin Globulin Albumin/Globulin Ratio 05/25/17 05/25/17 16:29 17:07 WBC RBC Hgb Hct MCV MCH MCHC RDW Plt Count MPV Sodium Potassium Chloride Carbon Dioxide Anion Gap BUN Creatinine Est GFR ( Amer) Est GFR (Non-Af Amer) POC Glucose (mg/dL) 66 144 H Random Glucose Calcium Phosphorus Magnesium Total Bilirubin AST ALT Alkaline Phosphatase Total Protein Albumin Globulin Albumin/Globulin Ratio Attending/Attestation - Attestation I have personally seen and examined this patient.: Yes I have fully participated in the care of the patient.: Yes I have reviewed all pertinent clinical information: Yes Notes (Text): This is an addendum to GI consult report dictated by Amie Rock APN.The patient was seen and examined earlier. Medical records, lab studies, imagings were reviewed. Last 24 hours events reviewed. Agreed with the above treatment plan as outlined in Amie Rock APN's notes with the addition of the following 05/25/17 23:53
--- NOTE | 2017-05-25 17:29 | HP ---
DATE OF EXAM: 05/25/2017 CHIEF COMPLAINT AND HISTORY OF PRESENT ILLNESS: This is a 67-year-old female who has come into the hospital complaining of difficulty with swallowing. She feels like her throat has been closing. The patient was accompanied by her daughter. She has had this issue before and was offered endoscopy, she has refused. The patient has been having the symptoms for few months. She has a past medical history of hypertension, diabetes type 2, hypothyroidism, GERD. She denies any chest pain or shortness of breath. No nausea, no vomiting, no fevers, no chills. No weakness in the arms or the legs. No abdominal pain or back pain. No dysuria or frequency. No nocturia. REVIEW OF SYSTEMS: All other review of symptoms are within normal limits except that was mentioned. She has been having a poor appetite, has not been able to eat well because of this discomfort. ALLERGIES: NO KNOWN DRUG ALLERGIES. HOME MEDICATIONS: Synthroid and Protonix. PAST MEDICAL HISTORY: 1. Hypertension. 2. Diabetes type 2. 3. Peptic ulcer disease. 4. Constipation. PAST SURGICAL HISTORY: She had an EGD done in 2017. FAMILY HISTORY: Noncontributory. PHYSICAL EXAMINATION: VITAL SIGNS: Temperature is 97.4, pulse of 54, blood pressure 137/63, respirations 20, O2 saturation 95%. Height is 5 feet 3 inches. Weight is 90 pounds. BMI is 15.9. GENERAL: The patient lying in bed, uncomfortable, and in no acute distress. HEENT: Atraumatic and normocephalic. Anicteric sclerae. Moist mucosa. [place] conjunctivae. No oral lesions. NECK: No JVD, anterior and posterior adenopathy, thyromegaly, or bruits. CARDIOVASCULAR: S1 and S2 regular. No murmur, rubs, or gallop. LUNGS: Clear to auscultation bilaterally. No wheezes, rales, or rhonchi. ABDOMEN: Bowel sounds are positive. Soft, nontender and nondistended. No hepatosplenomegaly. No rebound and no guarding EXTREMITIES: No cyanosis, clubbing, or edema. NEUROLOGIC: No facial asymmetry. Tongue is midline. No uvula deviation. Power is 5/5 upper extremity and lower extremity. Sensation intact in upper extremity and lower extremity. Alert, awake, and oriented x2. PSYCHIATRIC: She is awake, alert and oriented x3. No anxiety or depression. She has normal affect. GENITOURINARY: No CVA tenderness. VASCULAR: 2+ pulses in the carotid pulses and pedal pulses. SKIN: No erythema or nodules SPINE: Shows normal curvature. LABORATORY DATA: White count of 4.4, hemoglobin 11.8. Chemistry shows a creatinine of 0.6 with a potassium of 2.5. Urine shows blood is negative, nitrites are negative. Toxicology shows aspirin is normal and acetaminophen is normal. Alcohol is normal. Urine tox is normal. EKG shows sinus bradycardia with a rate of 50, QTc is 452. Chest x-ray done shows no active disease. Neck x-ray done shows there is a filamentous like radiopacity in the left side that may be extrinsic, multiplicity of hypo-densities and that are found. ASSESSMENT: 1. Dysphagia. 2. Hypokalemia. 3. Malnutrition, moderate. PLAN: The patient is currently admitted to the hospital. She continues to have dysphagia. I will get Dr. Patterson to evaluate the patient. I will admit the patient n.p.o. in case he would like to perform endoscopy. The patient is on Synthroid for hypothyroidism, this will be continued. The patient is on IV fluids. I also added potassium yesterday to the patient's medications. We will repeat the patient's labs. The patient has weight loss with BMI of 15.9. We will await further input from the specialists. Ramy Napier MD
[2017-05-25] MEDS ORDERED: Propofol 10 mg/ml Inj (20 ML) ONE (19:07)
[2017-05-25] MEDS ORDERED: Lidocaine 1% Inj (20ml) ONE (19:08)
[2017-05-25] MEDS ORDERED: Atropine 0.4 mg/ml Inj (1 mL) ONE (19:12)
[2017-05-25] MEDS ORDERED: Sodium Chloride 0.9% 1,000 ML IV SCH (19:30)
[2017-05-26] MEDS: Levothyroxine 50 MCG TAB PO SCH (09:30)
[2017-05-26] MEDS: Pantoprazole 40 mg EC Tab PO SCH (09:30)
[2017-05-27 06:52] LABS: HEMOGLOBIN 9.7 g/dL (12.0-16.0); MEAN CELL VOLUME 81.4 fl (80.0-105.0); MEAN CORPUSCULAR HEMOGLOBIN 26.2 pg (25.0-35.0); MEAN CORPUSCULAR HGB CONC 32.2 g/dl (31.0-37.0); MEAN PLATELET VOLUME 9.2 fl (7.0-11.0); RBC 3.7 10^6/uL (3.5-6.1); WHITE BLOOD COUNT 3.7 10^3/ul (4.5-11.0)
[2017-05-27 07:37] LABS: ALB/GLOB RATIO 0.9 (1.1-1.8); ALT/SGPT 18 U/L (7-56); AST/SGOT 21 U/L (14-36); BLOOD UREA NITROGEN 9 mg/dL (7-21); CALCIUM 9.1 mg/dL (8.4-10.5); GFR AFRICAN-AMERICAN > 60; GFR NON-AFRICAN AMERICAN > 60
[2017-05-27] MEDS: Levothyroxine 50 MCG TAB PO SCH (09:30)
[2017-05-27] MEDS: Pantoprazole 40 mg EC Tab PO SCH (09:30)
--- NOTE | 2017-05-27 18:55 | PN ---
DATE: 05/27/2017 SUBJECTIVE: She is comfortable in bed, in no acute distress. Complaining of difficulty in swallowing, unable to eat anything. No nausea, no vomiting. She is not ambulating, confined to the bed. No chest pain. No nausea, no vomiting. EGD negative. REVIEW OF SYSTEMS As per HPI. Rest of 12-point review of systems reviewed and negative. PHYSICAL EXAMINATION: GENERAL: Comfortable in bed, in no acute distress. VITAL SIGNS: Temperature 98.7, heart rate 80 per minute, blood pressure 130/70, respiratory rate 18 per minute, oxygen saturation 98% on room air. Cachexia present. NECK: No lymphadenopathy. CHEST: Air entry present and equal bilaterally. No added sounds. CARDIOVASCULAR: S1, S2 normal. No murmur, no gallop. ABDOMEN: Soft, nontender. No hepatosplenomegaly. EXTREMITIES: No edema. CENTRAL NERVOUS SYSTEM: Alert, oriented x3. No focal sensory or motor deficit. SPINE: Nontender. SKIN: No petechiae. No rash. LABORATORY DATA: White count 3.7, hemoglobin 9.7, hematocrit 30, platelets 222. Sodium 135, potassium 4.4, creatinine 0.6. B12 of 261. PLAN: 1. B12 deficiency. 2. Pancytopenia. 3. Cachexia. 4. Abnormal weight loss. 5. Dysphagia. PLAN: B12 at 1 mg IM daily, folic acid 1 mg daily. She needs evaluation for pernicious anemia. Intrinsic factor antibody and parietal cell antibody will be ordered with a.m. labs. Colonoscopy is planned for Sunday to rule out occult malignancy. She also has anemia. Iron studies will be ordered. Pancytopenia might be related to myelodysplastic syndrome. Dysphagia evaluation, speech and swallow evaluation ordered. She is refusing pureed diet. Discussed with the staff nurse. Anna Otto MD
--- NOTE | 2017-05-27 19:03 | PN ---
DATE: 05/26/2017 SUBJECTIVE: Ms. Pierre is a 67-year-old female, admitted to the hospital with difficulty in swallowing. She lost significant weight. She is cachexic and failure to thrive. She complains that she cannot eat because she has difficulty in swallowing. No nausea, no vomiting. She underwent EGD today, did not show any abnormality. She has pancytopenia, severe B12 deficiency. REVIEW OF SYSTEMS: As per HPI. Rest of 12-point review of systems reviewed negative. ALLERGIES: NO KNOWN DRUG ALLERGIES. HOME MEDICATIONS: Synthroid, Protonix. PAST MEDICAL HISTORY: Hypertension, diabetes mellitus type 2, peptic ulcer, constipation. PAST SURGICAL HISTORY: EGD. FAMILY HISTORY: Noncontributory. PHYSICAL EXAMINATION: GENERAL: Comfortable in bed, in no acute distress. VITAL SIGNS: Temperature 98.7, heart rate 80 per minute, blood pressure 110/70. HEENT: Normal. NECK: No lymphadenopathy. CHEST: Air entry present and equal bilaterally. No added sounds. CARDIOVASCULAR: S1, S2 normal. No murmur, no gallop. ABDOMEN: Soft, nontender. No hepatosplenomegaly. EXTREMITIES: No edema. SPINE: Nontender. CENTRAL NERVOUS SYSTEM: Alert and oriented x3. No focal sensory or motor deficit. LABORATORY DATA: White count 3.1, hemoglobin 9.8, hematocrit 30.3, platelet count 240. Sodium 135, potassium 4.4, creatinine 0.6. LFTs within normal limit. B12 of 261. MEDICATIONS: Synthroid 50 mcg daily, Protonix 40 mg daily. ASSESSMENT: 1. B12 deficiency. 2. Cachexia. 3. Failure to thrive. 4. Hypertension. 5. Hypothyroidism. PLAN: She underwent EGD and no abnormality found. GI consultation with Dr. Yesenia abarca. Notes reviewed. B12 at 1 mg IM daily to be started. Folic acid 1 mg daily. Colonoscopy is planned for Sunday. Bedside physical therapy. Continue Synthroid 50 mcg daily for hypothyroidism. CT abdomen and pelvis did not show any mass lesion. Anna Otto MD
--- NOTE | 2017-05-28 00:08 | PN ---
DATE: 05/27/2017 SUBJECTIVE: This patient was seen and evaluated earlier today. Discussed with the patient's , who was at bedside. Patient appears more comfortable and is tolerating the pureed food well. PHYSICAL EXAMINATION: VITAL SIGNS: Temperature is 98.4, pulse 57, blood pressure is 111/66. HEENT: Atraumatic, anicteric. NECK: Supple. HEART: S1, S2 heard. LUNGS: Bilateral air entry present. ABDOMEN: Soft. No mass palpable. No tenderness. EXTREMITIES: No cyanosis. No clubbing. No edema. LABORATORY DATA: Hemoglobin 9.7, hematocrit 30.1, WBC 3.7, platelets 222. BUN 9, creatinine 0.6. IMPRESSION: This is a 67-year-old patient with significant weight loss, anorexia, had an upper gastrointestinal endoscopy done, which was essentially unremarkable. Patient was noticed to have a poor dentition. Obviously, one of the reasons for her weight loss could be related to poor p.o. intake, because the patient has poor dentition, not chewing well. The patient was placed on pureed diet. The patient is tolerating the diet well here. The patient's also B12 was found to be borderline low, malabsorption is an etiology, may be nutritional. The patient had a CT scan of the abdomen and pelvis and chest done during the last admission, which was reviewed. I did have a detailed discussion with the patient's and also patient and discussed the options about colonoscopy. They want to discuss and decide about it. Risks, benefits and alternatives explained to patient. Risk of missing cancer including malignancy explained. If the patient and the family are agreeable, we will schedule the patient for a colonoscopic evaluation, patient was refusing in the past. Thank you very much for allowing us to participate in the care of the patient. Washington Patterson MD
--- NOTE | 2017-05-28 07:12 | PN ---
DATE: 05/28/2017 SUBJECTIVE: The patient has no complaints of any chest pain. No shortness of breath. No headaches. PHYSICAL EXAMINATION: VITAL SIGNS: Temperature is 99.4, pulse of 44, blood pressure is 109/51, respirations 18. GENERAL: The patient is lying in bed, flat, comfortable. HEENT: No oral lesion. Anicteric sclerae. Moist mucosa. NECK: No JVD, adenopathy, or thyromegaly. CARDIOVASCULAR: S1 and S2, regular. No murmurs, rubs, or gallops. LUNGS: Clear to auscultation bilaterally. No wheeze, rales, or rhonchi. ABDOMEN: Bowel sounds are positive, soft, nontender and nondistended. EXTREMITIES: No cyanosis, clubbing or edema. LABORATORY DATA: White count of 3.7, hemoglobin 9.7, creatinine 0.6. ASSESSMENT: 1. Dysphagia. 2. Hypokalemia, resolved. 3. Malnutrition. 4. Bradycardia. 5. Cachexia. 6. B12 deficiency. PLAN: The patient has been evaluated by GI. She did ask for ENT's evaluation because of an abnormal x-ray of soft tissue of the neck. The patient does have bradycardia as well. She is on Synthroid for hypothyroidism. She is receiving vitamin B12. I will have Oncology continue to follow the patient with Dr. Otto and also have cardiac evaluation for the patient's bradycardia. Ramy Napier MD
[2017-05-28] MEDS: Pantoprazole 40 mg EC Tab PO SCH (10:45)
[2017-05-28] MEDS: Levothyroxine 50 MCG TAB PO SCH (10:47)
--- NOTE | 2017-05-28 13:03 | CON ---
DATE: 05/28/2017 INDICATION: Sinus bradycardia. HISTORY OF PRESENT ILLNESS: This is a 67-year-old woman admitted with dysphagia, weight loss, poor appetite, failure to thrive, who was found to have sinus bradycardia in addition to multiple medical and GI problems. Cardiac evaluation was requested. There is no history of chest pain, shortness of breath, orthopnea, PND, syncope, presyncope, lightheadedness, dizziness, vertigo, palpitations, edema, claudication, fever, chills, rigors, sweats, cough, hemoptysis, sputum production, diarrhea, or melena. PAST MEDICAL HISTORY: Notable for GI problems including peptic ulcer disease, erosive gastropathy, GERD. She has difficulty swallowing, she has undergone evaluation for this and a fairly recent EGD was unremarkable. A colonoscopy is recommended, but has been declined by the patient. There is a history of hypertension, psychiatric problems, psychogenic polydipsia with hyponatremia, diabetes, anxiety, depression, hypothyroidism, malnutrition, weight loss, and B12 deficiency. There is no history of rheumatic fever, myocardial infarction, angina, congestive heart failure, arrhythmia, stroke, TIA, or gout. MEDICATIONS: At the time of admission, were Protonix and Synthroid. Her current medications include folic acid, Protonix, Synthroid, and vitamin B12. ALLERGIES: THERE ARE NO ALLERGIES REPORTED. SOCIAL HISTORY: She lives at home with her . She does not smoke cigarettes. She does not drink alcohol. FAMILY HISTORY: Noncontributory. REVIEW OF SYSTEMS: Ten-point review of systems is otherwise unremarkable. PHYSICAL EXAMINATION: GENERAL: She is a well-developed woman, in no acute distress, lying in bed on telemetry. She is in sinus rhythm to sinus bradycardia 51 to 66 beats per minute. VITAL SIGNS: She is afebrile. Blood pressure 132/63, respirations 18, O2 sat 98% to 100% on nasal cannula and room air. HEENT: Reveals no neck vein distention, thyromegaly, or carotid bruits. Mucous membranes moist. Conjunctivae pink. NECK: Supple. HEART: Reveals normal first and second heart sounds without murmur, gallop, rub, or click. LUNGS: Lung chacon clear. ABDOMEN: Soft. Bowel sounds present. No mass, organomegaly, tenderness, rebound, or guarding. No CVA tenderness. No palpable abdominal aortic aneurysm. EXTREMITIES: Reveal no cyanosis, clubbing, or edema. NEUROLOGIC: She is awake and alert. PSYCHIATRIC: Normal as to mood and affect. SKIN: Warm and dry, no rash or cellulitis. LABORATORY AND IMAGING: EKG demonstrates sinus bradycardia at 50 beats per minute. No change from her previous EKG. Chest x-ray reveals no active disease. An x-ray of the soft tissue of the neck, report is noted. Laboratory includes white count of 3700, hemoglobin 9.7, hematocrit of 30.1, platelet count 222,000. Electrolytes unremarkable. BUN 9, creatinine 0.6, blood sugar is noted. LFT's normal. Urinalysis unremarkable. Toxicology unremarkable. ASSESSMENT: This is a 67-year-old woman with dysphagia, undergoing GI workup, found to have sinus bradycardia with heart rates in the mid 40's to 60's on telemetry. No syncope, dizziness, or palpitations. No chest pain or shortness of breath. She has poor nutrition, poor dentition, difficulty swallowing, progressive loss of appetite, anorexia and weight loss. She has been found to have B12 deficiency, and has been given folic acid and B12. She is being given pureed foods now with better results. PLAN: She is undergoing GI evaluation. I will check an echocardiogram. It is likely that the bradycardia is on nutritional basis and may improve with better nutrition. I will check a TSH level. If symptomatic bradycardia develops, a permanent pacemaker may be contemplated, this does not seem necessary at this time. I will review her old records. I will order stool for occult blood, she can be out of bed to a chair. I will follow along with you. Terrence Clarke MD ALEXANDRO
[2017-05-28] MEDS ORDERED: Peg-Electrolyte Oral Soln 4L (Golytely) PO ONE (14:00)
[2017-05-28] MEDS ORDERED: Magnesium Citrate Oral SOL (300 ml) PO ONE (14:27)
[2017-05-28] MEDS ORDERED: Bisacodyl 5mg EC Tab PO ONE ×2 (14:28→20:00)
--- NOTE | 2017-05-28 19:04 | CON ---
DATE: HISTORY OF PRESENT ILLNESS: Shortly, the patient is 67-year-old [place] speaking female with multiple medical issues including hypertension, diabetes, hypothyroidism, GERD, cardiac catheterization. The patient came to the hospital complaining of throat closing. The patient also has history of mental illness, most likely anxiety due to general medical condition and psychosis as well as possible depression. The patient was admitted once into the psychiatric inpatient unit in 2014. The patient was seen and examined today. This story writer is very familiar with this patient from previous hospitalization into the psychiatric inpatient unit. The patient is [place]an speaking, this story writer utilized on demand translation line, ID number is [id number]. The patient presented to be alert and oriented. The patient knows the circumstances of her admission to the psychiatric and to the medical side. The patient reported that she was having "indigestion." The patient reported that she was not feeling depressed. The patient denied thoughts of harming herself or others. Denied intent or plan. The patient presented to be anxious, moaning. As per nursing staff report, the patient was refusing to remove oxygen, but there is no agitation, no aggression. The patient denied hearing voices, denied seeing things. Denied paranoid ideation. The patient denied thoughts of harming herself or others. PHYSICAL EXAMINATION: VITAL SIGNS: This story writer reviewed vital signs. Vital signs seem to be stable. Temperature 97.7, pulse is 51, blood pressure 132/63, respirations 18, oxygen saturation is 100%. MEDICATIONS: Reviewed. Multivitamins, folic acid, vitamin B12, Synthroid, Protonix, sodium chloride, Will nasal spray. LABORATORY DATA: Reviewed. WBC 3.7, hemoglobin and hematocrit 9.7 and 30.1 respectively. Chemistry reviewed. Urinalysis within normal limits. Toxicology is negative for any substances. SOCIAL HISTORY: The patient reported that she lives with her and with her daughter and they treat her well. MENTAL STATUS EXAMINATION: The patient appears to be alert and oriented, pleasant, cooperative, poor personal hygiene, poor dental hygiene, intermittent eye contact. Speech was under productive. Yes or no answers. Mood described as "bene" Affect was constricted, but reactive. Mood congruent. Thought process seems to be goal directed. Thought content: The patient denied visual or tactile hallucinations. Denied paranoid ideation. The patient does not appear to be psychotic. The patient denied thoughts of harming herself or others. Denied intent or plan. Insight and judgment seem to be fair. Impulses are well controlled. IMPRESSION: Rule out mood disorder due to general medical condition, rule out anxiety disorder due to general medical condition. The patient denied being anxious. PLAN: Continue current management. Continue current medication. Medical staff raised concern about anxiety, but the patient denied being anxious. On top of that, benzodiazepines could give high risk of falls and it is not recommended at present moment. vistaril could be given as needed 25 mg twice a day for anxiety. There is no need for antidepressant. Family need to be involved. This story writer will sign off. There is no need for psychiatric followup for this patient. There are no signs of elderly abuse. The patient reported that her family treats her well. Should have any questions, give me a call back. Thank you very much for letting me participate in the care of your patient Bev Lopez MD MTDLulu
--- NOTE | 2017-05-28 23:33 | CP.PCM.PN ---
Subjective - Date & Time of Evaluation Date of Evaluation: 05/28/17 Time of Evaluation: 19:00 - Subjective Subjective: She is comfortable in bed. She declined to take prep for colonoscopy . Pulse oxygenation is normal. Slight nose bleed from both nostrils. She declined to take off oxygen. complaining of difficulty in swallowing. Staff nurse noticed that she could swallow when not being watched. Psych consult requested. Objective - Vital Signs/Intake and Output Vital Signs (last 24 hours): Temp Pulse Resp BP Pulse Ox 98.2 F 60 17 129/62 100 05/28/17 07:30 05/28/17 07:30 05/28/17 07:30 05/28/17 07:30 05/28/17 06:00 Intake and Output: 05/28/17 05/29/17 18:59 06:59 Intake Total 0 Output Total 0 Balance 0 - Medications Medications: Current Medications Bisacodyl (Dulcolax) 10 mg PO ONCE ONE Stop: 05/29/17 06:01 Cyanocobalamin (Vitamin B12 1000 Mcg/Ml Inj) 1,000 mcg IM DAILY [facility] Last Admin: 05/28/17 10:49 Dose: Not Given Folic Acid (Folic Acid) 1 mg PO DAILY [facility] Last Admin: 05/28/17 10:49 Dose: 1 mg Levothyroxine Sodium (Synthroid) 50 mcg PO DAILY [facility] Last Admin: 05/28/17 10:47 Dose: 50 mcg Magnesium Citrate (Citrate Of Mag) 300 ml PO ONCE ONE Stop: 05/29/17 06:01 Pantoprazole Sodium (Protonix Ec Tab) 40 mg PO DAILY [facility] Last Admin: 05/28/17 10:45 Dose: Not Given Sodium Chloride ([place] Nasal [place]) 0 ml NS TID [facility] Last Admin: 05/28/17 18:30 Dose: 1 applic - Labs Labs: 05/27/17 06:00 05/27/17 06:00 - Constitutional Appears: Cachectic, Chronically Ill - Head Exam Head Exam: ATRAUMATIC, NORMAL INSPECTION - Eye Exam Eye Exam: Normal appearance Pupil Exam: NORMAL ACCOMODATION - ENT Exam ENT Exam: Mucous Membranes Moist, Normal Exam - Neck Exam Neck Exam: Normal Inspection - Respiratory Exam Respiratory Exam: Clear to Ausculation Bilateral, NORMAL BREATHING PATTERN - Cardiovascular Exam Cardiovascular Exam: REGULAR RHYTHM, +S1, +S2 - GI/Abdominal Exam GI & Abdominal Exam: Soft, Normal Bowel Sounds - Extremities Exam Extremities Exam: Normal Inspection - Back Exam Back Exam: NORMAL INSPECTION - Neurological Exam Neurological Exam: Alert, Awake, Oriented x3 - Psychiatric Exam Psychiatric exam: Depressed - Skin Skin Exam: Pallor, Warm Assessment and Plan - Assessment and Plan (Free Text) Assessment: 1. cachexia : abnormal weight loss . EGD negative. colonoscopy planned for tomorrow. She is refusing prep. CEA, CA19.9, CA125 ordered. 2. B12 deficiency : b12 1 mg daily IM, folic acid 1 mg po daily. 3. dysphagia : EGD normal. Thank you Dr. Napier for allowing us to participate in her care.
--- NOTE | 2017-05-29 03:03 | PN ---
DATE: 05/28/2017 SUBJECTIVE: This patient was seen and evaluated earlier today. Discussed with the family earlier. PHYSICAL EXAMINATION: VITAL SIGNS: Temperature is 98.2, pulse 60, blood pressure is 129/62. HEENT: Atraumatic, anicteric. NECK: Supple. HEART: S1, S2 heard. LUNGS: Bilateral air entry present. ABDOMEN: Soft. There is no mass palpable. No tenderness. EXTREMITIES: No cyanosis. No clubbing. LABORATORY DATA: No recent labs today. ASSESSMENT AND PLAN: This is a 67-year-old patient, was admitted with anemia, significant weight loss, appears very cachectic and suspected occult gastrointestinal bleeding. Patient did have an upper gastrointestinal endoscopy done, which showed no upper gastrointestinal source of blood loss. Patient did have an ulcer before, appears to have healed. The patient had a CT scan of the abdomen and pelvis, and chest done earlier, which was reviewed. Patient will be scheduled for a colonoscopy tomorrow. Patient also has a B12 deficiency, may be nutritional, it is being supplemented. Patient was seen by the oncologist, ordered tumor makers, we will follow up on that. Thank you very much for allowing us to participate in the care of the patient. Washington Patterson MD
[2017-05-29] MEDS ORDERED: Bisacodyl 5mg EC Tab PO ONE ×2 (06:00→20:00)
[2017-05-29] MEDS ORDERED: Magnesium Citrate Oral SOL (300 ml) PO ONE ×2 (06:00→15:30)
[2017-05-29 07:19] LABS: IRON 80 ug/dL (45-180)
[2017-05-29 07:31] LABS: % IRON SATURATION 22 % (20-55); TOTAL IRON BINDING CAPACITY 359 ug/dL (265-497)
--- NOTE | 2017-05-29 08:18 | CP.PCM.PN ---
Subjective - Date & Time of Evaluation Date of Evaluation: 05/29/17 Time of Evaluation: 07:00 - Subjective Subjective: Stable on 5R. No CP or SOB. Colonoscopy planned but pt refused prep. No CP or SOB. V/S noted. P= 54 PE: Lungs: clear Cor.: S1S2 Abd.: soft Ext.: no edema Neuro.: alert Labs noted. TSH NL. Echo done. Will read. Prelim. > NL LV. See report Objective - Vital Signs/Intake and Output Vital Signs (last 24 hours): Temp Pulse Resp BP Pulse Ox 97.9 F 54 L 18 112/57 L 99 05/29/17 07:55 05/29/17 07:55 05/29/17 07:55 05/29/17 07:55 05/29/17 07:55 Intake and Output: 05/29/17 05/29/17 06:59 18:59 Intake Total 0 Output Total 0 Balance 0 - Medications Medications: Current Medications Cyanocobalamin (Vitamin B12 1000 Mcg/Ml Inj) 1,000 mcg IM DAILY [facility] Last Admin: 05/28/17 10:49 Dose: Not Given Folic Acid (Folic Acid) 1 mg PO DAILY [facility] Last Admin: 05/28/17 10:49 Dose: 1 mg Levothyroxine Sodium (Synthroid) 50 mcg PO DAILY [facility] Last Admin: 05/28/17 10:47 Dose: 50 mcg Pantoprazole Sodium (Protonix Ec Tab) 40 mg PO DAILY [facility] Last Admin: 05/28/17 10:45 Dose: Not Given Sodium Chloride ([place] Nasal [place]) 0 ml NS TID [facility] Last Admin: 05/28/17 18:30 Dose: 1 applic - Labs Labs: 05/27/17 06:00 05/27/17 06:00 Assessment and Plan - Assessment and Plan (Free Text) Assessment: Dysphagia/Weight Loss/Cachexia/B 12 deficiency Sinus bradycardia PUD/Erosive Gastropathy/GERD/Unremarkable recent EGD HBP Psychiatric issues H/O Polydipsia with hyponatremia Diabetes Anxiety/Depression Hypothyroidism Plan: As per GI, Heme/Onc., Psych, Dr Napier and ENT. B 12 Will read echo.
--- NOTE | 2017-05-29 09:13 | PN ---
DATE: SUBJECTIVE: The patient has no complaints of any chest pain. No shortness of breath. She continues to complain about her throat. PHYSICAL EXAMINATION VITAL SIGNS: Temperature is 98.2, pulse of 60, blood pressure is 129/62, respirations 17. GENERAL: The patient is lying in bed, flat, comfortable. HEENT: No oral lesion. Anicteric sclerae. Moist mucosa. NECK: No JVD, adenopathy, or thyromegaly. CARDIOVASCULAR: S1 and S2, regular. No murmurs, rubs, or gallops. LUNGS: Clear to auscultation bilaterally. No wheeze, rales, or rhonchi. ABDOMEN: Bowel sounds are positive. Soft, nontender and nondistended. EXTREMITIES: No cyanosis, clubbing or edema. LABORATORY DATA: White count of 3.7, hemoglobin is 9.7, creatinine is 0.6. ASSESSMENT 1. Globus sensation. 2. Hypokalemia, resolved. 3. Malnutrition. 4. Bradycardia, asymptomatic. 5. Cachexia. 7. B12 deficiency. 8. Hypothyroidism. PLAN: The patient is receiving B12 replacement. She is on folic acid. She is on Protonix daily. She is on Synthroid for hypothyroidism. She is on a liquid diet. She is to go for colonoscopy today. She was seen by Psychiatry and no further intervention is required. The patient is receiving supplemental nutrition. She was seen by Physical Therapy and was advised that she go to subacute rehab she has refused many interventions. Ramy Napier MD
--- NOTE | 2017-05-29 09:29 | CARD ---
APPROVED REPORT EXAM: Two-dimensional and M-mode echocardiogram with Doppler and color Doppler. Other Information Quality : GoodRhythm : INDICATION Dysphagia, SINUS BRADYCARDIA 2D DIMENSIONS Left Atrium (2D)3.3 (1.6-4.0cm)IVSd1.1 (0.7-1.1cm) LVDd3.6 (3.9-5.9cm)PWd1.0 (0.7-1.1cm) LVDs2.5 (2.5-4.0cm)FS (%) 30.4 % LVEF (%)59.0 (>50%) M-Mode DIMENSIONS Aortic Root2.20 (2.2-3.7cm)Aortic Cusp Exc.1.00 (1.5-2.0cm) Aortic Valve AoV Peak Synpjskl652.0cm/Deandre Peak GR.10mmHg Mitral Valve MV E Yvlmzmbf98.5cm/sMV A Schdbwnn37.7cm/sE/A ratio0.8 TDI E/Lateral E'0.0E/Medial E'0.0 Tricuspid Valve TR Peak Lthhozvb502ol/sRAP [id number] Peak Gr.14mmHg [id number] LEFT VENTRICLE The left ventricle is normal size. There is normal left ventricular wall thickness. The left ventricular function is normal. The left ventricular ejection fraction is within the normal range. There is normal LV segmental wall motion. RIGHT VENTRICLE The right ventricle is normal size. ATRIA The left atrium size is normal. The right atrium size is normal. The interatrial septum is intact with no evidence for an atrial septal defect. AORTIC VALVE The aortic valve is moderately calcified. There is mild aortic regurgitation. MITRAL VALVE The mitral valve is normal in structure. Mitral regurgitation is mild. TRICUSPID VALVE The tricuspid valve is normal in structure. There is trace tricuspid regurgitation. GREAT VESSELS The aortic root is normal in size. PERICARDIAL EFFUSION There is no pericardial effusion. <Conclusion> The left ventricle is normal size. There is normal left ventricular wall thickness. The left ventricular function is normal. The aortic valve is moderately calcified. Aortic sclerosis. There is mild aortic regurgitation. Mitral regurgitation is mild.
[2017-05-29 11:52] LABS: FERRITIN 14.3 ng/mL
[2017-05-29] MEDS: Pantoprazole 40 mg EC Tab PO SCH (12:27)
[2017-05-29] MEDS: Levothyroxine 50 MCG TAB PO SCH (12:27)
[2017-05-29 16:26] VITALS: RESP 20
--- NOTE | 2017-05-29 18:08 | CP.PCM.PN ---
Subjective - Date & Time of Evaluation Date of Evaluation: 05/29/17 Time of Evaluation: 11:40 - Subjective Subjective: Seen and examined at the bedside earlier today, chart was reviewed. Patient refused to take out prep for colonoscopy. So colonoscopy scheduled for today canceled and diet resumed. No acute distress. Objective - Vital Signs/Intake and Output Vital Signs (last 24 hours): Temp Pulse Resp BP Pulse Ox 98.3 F 62 20 126/41 L 98 05/29/17 14:00 05/29/17 14:00 05/29/17 14:00 05/29/17 14:00 05/29/17 14:00 Intake and Output: 05/29/17 05/29/17 06:59 18:59 Intake Total 0 Output Total 0 Balance 0 - Medications Medications: Current Medications Bisacodyl (Dulcolax) 10 mg PO ONCE ONE Stop: 05/29/17 20:01 Bisacodyl (Dulcolax) 10 mg PO ONCE ONE Stop: 05/30/17 06:01 Cyanocobalamin (Vitamin B12 1000 Mcg/Ml Inj) 1,000 mcg IM DAILY [facility] Last Admin: 05/29/17 12:27 Dose: 1,000 mcg Folic Acid (Folic Acid) 1 mg PO DAILY [facility] Last Admin: 05/29/17 12:27 Dose: 1 mg Levothyroxine Sodium (Synthroid) 50 mcg PO DAILY [facility] Last Admin: 05/29/17 12:27 Dose: 50 mcg Pantoprazole Sodium (Protonix Ec Tab) 40 mg PO DAILY [facility] Last Admin: 05/29/17 12:27 Dose: 40 mg Sodium Chloride (Crum Nasal [place]) 0 ml NS TID [facility] Last Admin: 05/29/17 17:27 Dose: Not Given - Labs Labs: 05/27/17 06:00 05/27/17 06:00 Assessment and Plan - Assessment and Plan (Free Text) Assessment: Assessment: GERD Foreign sensation in throat, status post EGD which was normal no acute findings Weight loss Hypothyroidism Hypertension Status post hypokalemia Plan: clear liquid Continue PPI Monitor electrolytes ENT follow-up Spoke to patient's daughter Shelby [phone], regarding colonoscopy, she spoke to her mother and patient now agrees to go through colonoscopy preparation , we will prepare her for tomorrow 05/30. Patient is on a clear liquid diet Give dose of magnesium citrate this afternoon and Dulcolax tablet in the evening , patient will receive another dose of Dulcolax 10 mg at 6 AM, spoke to BALJIT Wan. Nursing staff to call GI service regarding bowel prep. Nothing by mouth after midnight except medication but can have clear liquid breakfast in a.m. Seen and discussed with Dr. Patterson.
--- NOTE | 2017-05-29 18:28 | CP.PCM.CON ---
History of Present Illness - History of Present Illness History of Present Illness: ENT for DYsphagia 67-year-old female with a past medical history of GERD, diabetes mellitus type 2 , hypothyroidism came with dysphagia. Patient complaining of feeling as though something was stuck in her throat, this patient does have history of anxiety no report of nausea or vomiting. Patient complains of increased gas and constipation. She takes PPI at home does complain of heartburn. Denies any bleeding, patient has history of weight loss. On admission patient had neck soft tissue x-ray and this showed cartilage calcifications and ossification's in the thyroid, numerous posterior projecting hyperdensities above the epiglottis on the lateral view. Based on the multiplicity of hyperdensities and there positions possibility of a calcification and/or bony foreign body cannot be excluded. Pt had EGD done by GI. No abnormality found. Flexible fiberoptic Laryngoscopy was performed bedside. Mild erythenoid erythema noted but rest of the exam was normal. PMH: GERD, HTN, DM, Hypothyroidism, Major depression, Anxiety, duodenal ulcers, erosive gastropathy PSH: egd 2016, otherwise denies cardiac or abdominal sx Review of Systems - Review of Systems Review of Systems: See HPI Past Patient History - Infectious Disease Hx of Infectious Diseases: None - Tetanus Immunizations Tetanus Immunization: Unknown - Past Social History Smoking Status: Former Smoker - CARDIAC Hx Cardiac Disorders: Yes Hx Hypertension: Yes - PULMONARY Hx Respiratory Disorders: No - NEUROLOGICAL Hx Neurological Disorder: No - HEENT Hx HEENT Problems: Yes Hx Blind: No Hx Cataracts: No Hx Deafness: No Hx Difficulty Chewing: No Hx Epistaxis: No Hx Glaucoma: Yes Hx Macular Degeneration: No - RENAL Hx Chronic Kidney Disease: No - ENDOCRINE/METABOLIC Hx Hypothyroidism: Yes - HEMATOLOGICAL/ONCOLOGICAL Hx Blood Transfusions: No Hx Blood Transfusion Reaction: No - INTEGUMENTARY Hx Dermatological Problems: Yes Other/Comment: frequent itching with multiple scabs on back and arms - MUSCULOSKELETAL/RHEUMATOLOGICAL Hx Musculoskeletal Disorders: Yes Hx Falls: No Hx Unsteady Gait: Yes - GASTROINTESTINAL Hx Gastrointestinal Disorders: Yes Hx Gastroesophageal Reflux: Yes Other/Comment: history of anorexia and weight loss - GENITOURINARY/GYNECOLOGICAL Hx Genitourinary Disorders: No - PSYCHIATRIC Hx Psychophysiologic Disorder: Yes Hx Anxiety: Yes Hx Substance Use: No - SURGICAL HISTORY Hx Surgeries: No - ANESTHESIA Hx Anesthesia Reactions: No Hx Malignant Hyperthermia: No Meds Allergies/Adverse Reactions: Allergies Allergy/AdvReac Type Severity Reaction Status Date / Time No Known Allergies Allergy Verified 05/24/17 06:44 - Medications Medications: Current Medications Bisacodyl (Dulcolax) 10 mg PO ONCE ONE Stop: 05/29/17 20:01 Bisacodyl (Dulcolax) 10 mg PO ONCE ONE Stop: 05/30/17 06:01 Cyanocobalamin (Vitamin B12 1000 Mcg/Ml Inj) 1,000 mcg IM DAILY [facility] Last Admin: 05/29/17 12:27 Dose: 1,000 mcg Folic Acid (Folic Acid) 1 mg PO DAILY [facility] Last Admin: 05/29/17 12:27 Dose: 1 mg Levothyroxine Sodium (Synthroid) 50 mcg PO DAILY [facility] Last Admin: 05/29/17 12:27 Dose: 50 mcg Pantoprazole Sodium (Protonix Ec Tab) 40 mg PO DAILY [facility] Last Admin: 05/29/17 12:27 Dose: 40 mg Sodium Chloride (Terrell Nasal [place]) 0 ml NS TID [facility] Last Admin: 05/29/17 17:27 Dose: Not Given Physical Exam - Constitutional Appears: No Acute Distress - Head Exam Head Exam: ATRAUMATIC, NORMAL INSPECTION, NORMOCEPHALIC - Eye Exam Eye Exam: EOMI, Normal appearance, PERRL Pupil Exam: NORMAL ACCOMODATION, PERRL - ENT Exam ENT Exam: Mucous Membranes Dry, Normal External Ear Exam, TM's Normal Bilaterally Additional comments: Fiber optic flexible laryngoscopy: Dry R nasal mucosa Deviated septum to the Right Normal tongue NO enlarged tonsil Mild etythenoid erythema Normal epiglottis Normal vocal cord Patent airway - Neck Exam Neck exam: Positive for: Normal Inspection - Respiratory Exam Respiratory Exam: Clear to Auscultation Bilateral, NORMAL BREATHING PATTERN - Cardiovascular Exam Cardiovascular Exam: REGULAR RHYTHM - GI/Abdominal Exam GI & Abdominal Exam: Normal Bowel Sounds, Soft. absent: Tenderness - Rectal Exam Rectal Exam: NORMAL INSPECTION - Extremities Exam Extremities exam: Positive for: normal inspection - Back Exam Back exam: NORMAL INSPECTION - Neurological Exam Neurological exam: Alert, CN II-XII Intact, Normal Gait, Oriented x3, Reflexes Normal - Psychiatric Exam Psychiatric exam: Normal Affect, Normal Mood - Skin Skin Exam: Dry, Intact, Normal Color, Warm Results - Vital Signs Recent Vital Signs: Last Vital Signs Temp 98.3 F 05/29/17 14:00 Pulse 62 05/29/17 14:00 Resp 20 05/29/17 14:00 BP 126/41 L 05/29/17 14:00 Pulse Ox 98 05/29/17 14:00 - Labs Result Diagrams: 05/27/17 06:00 05/27/17 06:00 Labs: Laboratory Results - last 24 hr 05/29/17 05/29/17 05/29/17 06:20 06:20 06:20 POC Glucose (mg/dL) Iron 80 TIBC 359 % Saturation 22 Ferritin 14.3 Carcinoembryonic Ag 2.5 CA 19-9 Antigen 6.3 CA 125 Antigen < 5.5 TSH 3rd Generation 2.63 05/29/17 05/29/17 12:24 15:55 POC Glucose (mg/dL) 78 81 Iron TIBC % Saturation Ferritin Carcinoembryonic Ag CA 19-9 Antigen CA 125 Antigen TSH 3rd Generation Assessment & Plan - Assessment and Plan (Free Text) Assessment: 67 F w PMH of GERD came with Dysphagia Flexible fiberoptic naso endoscope exam : Mild erythenoid erythema. Dry Nasal mucosa - No ENT intervention needed at this time. - Humidified Nasal saline for dry nasal mucosa DW Dr. Tom
--- NOTE | 2017-05-29 18:41 | PCM.PROC ---
Procedures Attestation:: I certify that I have explained the specified Operation(s) or Procedure(s), risks, benefits and reasonable alternatives to the Patient and/or other person responsible. The opportunity was given to ask questions and all questions answered - Laryngoscopy Sedation/Analgesia: Viscous Lidocaine Technique: Indirect Nasal Laryngoscopy Findings: Normal Larynx, Normal Epiglottis, No Soft Tissue Swelling, Normal Vocal Cords, No Foreign Body, Normal Vocal Cord Function Complications: None Post-procedure Exam: Awake, Alert, Normal BP, Normal HR, Normal O2 Sat
[2017-05-30] MEDS ORDERED: Alum-Mag Hydrox-Simethicone Susp (30 mL) PO ONE (04:00)
[2017-05-30] MEDS ORDERED: Magnesium Citrate Oral SOL (300 ml) PO ONE (06:00)
[2017-05-30] MEDS ORDERED: Bisacodyl 5mg EC Tab PO ONE (06:00)
[2017-05-30 07:50] LABS: BLOOD UREA NITROGEN 11 mg/dL (7-21); CALCIUM 8.9 mg/dL (8.4-10.5); GFR AFRICAN-AMERICAN > 60; GFR NON-AFRICAN AMERICAN > 60
[2017-05-30 09:21] VITALS: BP 110/56; PULSE 58; TEMP 97.4; O2SAT 97
[2017-05-30] MEDS: Levothyroxine 50 MCG TAB PO SCH (10:28)
[2017-05-30] MEDS: Pantoprazole 40 mg EC Tab PO SCH (10:28)
--- NOTE | 2017-05-30 11:57 | PN ---
DATE: 05/30/2017 SUBJECTIVE: The patient is seen lying in bed on 5R. She is apparently awaiting GI endoscopy. She denies any chest pain, dyspnea, or lightheadedness. PHYSICAL EXAMINATION: GENERAL: She is a middle-aged women who appears comfortable. VITAL SIGNS: Her blood pressure is 110/56, her pulse is 56, respirations are 14, she is afebrile. HEENT: No JVD noted. CHEST: Clear to auscultation and percussion. HEART: Normal first and second sounds. ABDOMEN: Soft, nontender, normoactive bowel sounds. EXTREMITIES: No edema. DIAGNOSTICS DATA: Sodium is 126, potassium 5.2, BUN and creatinine 11 and 0.7. IMPRESSION: 1. Dysphagia and weight loss, workup in progress; sinus bradycardia, asymptomatic, no workup needed at this time. 2. History of polydipsia with hyponatremia, somewhat worsen since admission. 3. History of anxiety and depression. RECOMMENDATIONS: No treatment for her sinus bradycardia is needed at this time obviously. There is no cardiac contraindication to proceeding with endoscopic procedures as planned. Her echocardiogram revealed normal LV size and function with mild aortic sclerosis. We will be happy to follow along in the future as needed. Carlos Piña MD
--- NOTE | 2017-05-30 18:29 | CP.PCM.PN ---
Subjective - Date & Time of Evaluation Date of Evaluation: 05/30/17 Time of Evaluation: 12:10 - Subjective Subjective: Seen and examined at the bedside earlier this afternoon, chart reviewed. Patient refuses any further preparation for colonoscopy, procedure canceled. Spoke to patient's and family at the bedside. No new complaints and no acute overnight events reported. Objective - Vital Signs/Intake and Output Vital Signs (last 24 hours): Temp Pulse Resp BP Pulse Ox 97.4 F L 58 L 20 110/56 L 97 05/30/17 06:00 05/30/17 06:00 05/30/17 06:00 05/30/17 06:00 05/30/17 06:00 Intake and Output: 05/30/17 05/30/17 06:59 18:59 Intake Total 780 Balance 780 - Labs Labs: 05/27/17 06:00 05/30/17 06:30 - Constitutional Appears: No Acute Distress - Head Exam Head Exam: NORMOCEPHALIC - Eye Exam Eye Exam: Normal appearance. absent: Scleral icterus - ENT Exam ENT Exam: Mucous Membranes Moist - Neck Exam Neck Exam: Normal Inspection - Respiratory Exam Respiratory Exam: NORMAL BREATHING PATTERN. absent: Respiratory Distress - Cardiovascular Exam Cardiovascular Exam: +S1, +S2 - GI/Abdominal Exam GI & Abdominal Exam: Soft, Normal Bowel Sounds. absent: Guarding, Tenderness, Rebound - Extremities Exam Extremities Exam: absent: Calf Tenderness, Pedal Edema - Neurological Exam Neurological Exam: Alert, Awake, Oriented x3 Assessment and Plan - Assessment and Plan (Free Text) Assessment: Assessment: GERD Foreign sensation in throat, status post EGD which was normal no acute findings Weight loss Hypothyroidism Hypertension Status post hypokalemia Plan: resume previous diet Continue PPI Monitor electrolytes Patient refuses further preparation for colonoscopy, procedure canceled. This is the second attempt. Spoke to the patient and family at the bedside regarding purple of colon, patient has wt. loss, last colon was many years ago, EGD was negative. Patient does not want colonoscopy. Patient is going to be discharged home. Spoke to patient's daughter at the bedside they will follow up with PCP Dr. Galdamez, if patient changed her mind can consider colonoscopy electively as outpatient. Seen and discussed with Dr. Patterson.
--- NOTE | 2017-05-30 20:58 | DS ---
CHIEF COMPLAINT AND HISTORY OF PRESENT ILLNESS: This is a 67-year-old female who had come to the hospital and complained of globus sensation. The patient had a laryngoscopy done. There was no significant abnormalities that were found. The patient is going to be discharged home. She refused a colonoscopy. She has no complaints of any chest pain or shortness of breath. She continues to complain of discomfort in the throat. No anatomical abnormalities have been seen to explain this. PHYSICAL EXAMINATION: VITAL SIGNS: Temperature is 98.2, pulse of 57, blood pressure is 119/73, respirations 20, O2 saturations are 100%. GENERAL: The patient is lying in bed, flat, comfortable. HEENT: No oral lesion. Anicteric sclerae. Moist mucosa. NECK: No JVD, adenopathy, or thyromegaly. CARDIOVASCULAR: S1 and S2, regular. No murmurs, rubs, or gallops. LUNGS: Clear to auscultation bilaterally. No wheeze, rales, or rhonchi. ABDOMEN: Bowel sounds are positive, soft, nontender and nondistended. EXTREMITIES: No cyanosis, clubbing or edema. ASSESSMENT: 1. Globus sensation. 2. Hypokalemia. 3. Malnutrition. 4. Bradycardia. 5. Cachexia. 6. B12 deficiency. 7. Hypothyroidism. PLAN: The patient is going to continue with Protonix. She is on Synthroid for hypothyroidism. She is on vitamin B12. She is currently comfortable. She is going to have repeat blood workup today. CONDITION: Stable. ACTIVITIES: Increase as tolerated. Dr. Patterson is interested in doing a colonoscopy and it is scheduled for today. If no significant abnormality, the patient will be discharged home. Ramy Napier MD
--- NOTE | 2017-05-31 00:22 | PN ---
DATE: SUBJECTIVE: She is comfortable in bed, in no acute distress. She refused the prep for colonoscopy. Colonoscopy could not be done today, which was planned before. She has severe anemia, weight loss, B12 deficiency. She had nosebleed, had nasal packing done, which was related to maybe trauma to the oxygen by nasal cannula. She also had difficulty in swallowing. REVIEW OF SYSTEM: As per HPI. Rest of the 12-point review of systems reviewed and negative. PHYSICAL EXAMINATION: GENERAL: Comfortable in bed, in no acute distress, cachexia plus. VITAL SIGNS: Stable, temperature 98.7, heart rate 80 per minute, blood pressure 110/70. HEENT: Mucosa pale. NECK: No lymphadenopathy. CHEST: Air entry present and equal bilaterally. No added sounds. CARDIOVASCULAR: S1, S2 normal. No murmur. No gallop. ABDOMEN: Soft, nontender. No hepatosplenomegaly. EXTREMITIES: No edema. CENTRAL NERVOUS SYSTEM: Alert and oriented x3. No focal sensory or motor deficit. LABORATORY DATA: White count 3.7, hemoglobin 9.7, hematocrit 30.1, platelet 222. Sodium 135, potassium 4.4, BUN 9, creatinine 0.6. ASSESSMENT: 1. B12 deficiency. 2. Cachexia. 3. Dysphagia. PLAN: She received iron, B12 during hospitalization. She can continue oral B12, folic acid. Colonoscopy will be planned as an outpatient. She will follow up with Dr. Patterson. Hemoglobin and hematocrit stable now. No nasal bleeding. She is able to swallow. She underwent a swallow evaluation. Psych also evaluated during hospitalization. No issues identified related to eating dysfunction. Anna Otto MD
== END 2017-05-30 14:02 | disposition home or self-care (01) | DRG 641 ==
LOC: ED 06:38 → ERH 10:22 → 3RSO 12:50 → OBSVTOIN 05-26 19:59 → 5RNO 05-28 17:31
PROVIDERS: ADMIT Internal Medicine Nephrology; ATTEND Internal Medicine Nephrology
PROC: 0DJ08ZZ Inspection of Upper Intestinal Tract, Via Natural or Artificial Opening Endoscopic (ICD-10-PCS; principal; 2017-05-25 17:15)
PROC: 0CJS8ZZ Inspection of Larynx, Via Natural or Artificial Opening Endoscopic (ICD-10-PCS; 2017-05-29)
DX: E87.6 Hypokalemia (principal); E44.0 Moderate protein-calorie malnutrition; D61.818 Other pancytopenia; K90.9 Intestinal malabsorption, unspecified; R64 Cachexia; E53.8 Deficiency of other specified B group vitamins; E03.9 Hypothyroidism, unspecified; E11.9 Type 2 diabetes mellitus without complications; F32.9 Major depressive disorder, single episode, unspecified; F41.9 Anxiety disorder, unspecified; F45.8 Other somatoform disorders; H40.9 Unspecified glaucoma; I10 Essential (primary) hypertension; K21.9 Gastro-esophageal reflux disease without esophagitis; K59.00 Constipation, unspecified; R04.0 Epistaxis; R13.10 Dysphagia, unspecified; R62.7 Adult failure to thrive; Z87.11 Personal history of peptic ulcer disease; Z87.891 Personal history of nicotine dependence; R00.1 Bradycardia, unspecified; R26.81 Unsteadiness on feet; R40.2412 Glasgow coma scale score 13-15, at arrival to emergency department

== ENCOUNTER 2017-06-01 09:38 | Observation (INO) | payer MEDICARE, OTHER ==
--- NOTE | 2017-06-01 09:42 | ED PDOC ---
Arrival/HPI - General Time Seen by Provider: 06/01/17 09:40 Historian: Patient - History of Present Illness Narrative History of Present Illness (Text): 06/01/17 09:41 67 y/o female, pmh including htn/hypothyroidism/dm/gerd, nkda, biba, c/o abdominal pain with nausea/vomiting started this morning. Pt. stated that she has lower abdominal pain, associated with nausea/vomiting, radiating to the throat, no diarrhea, on and off, had Endoscopy and ENT evaluation with no acute emergent findings, no night sweat, no rash, no other medical or psychological complaints. Past Medical History - Provider Review Nursing Documentation Reviewed: Yes - Infectious Disease Hx of Infectious Diseases: None - Tetanus Immunization Tetanus Immunization: Unknown - Past Medical History Past Medical History: Non-Contributing - Cardiac Hx Cardiac Disorders: Yes Hx Hypertension: Yes - Pulmonary Hx Respiratory Disorders: No - Neurological Hx Neurological Disorder: No - HEENT Hx HEENT Disorder: Yes Hx Blind: No Hx Cataracts: No Hx Deafness: No Hx Difficulty Chewing: No Hx Epistaxis: No Hx Glaucoma: Yes Hx Macular Degeneration: No - Renal Hx Renal Disorder: No - Endocrine/Metabolic Hx Hypothyroidism: Yes - Hematological/Oncological Hx Blood Transfusions: No Hx Blood Transfusion Reaction: No - Integumentary Hx Dermatological Disorder: Yes Other/Comment: frequent itching with multiple scabs on back and arms - Musculoskeletal/Rheumatological Hx Musculoskeletal Disorders: Yes Hx Falls: No Hx Unsteady Gait: Yes - Gastrointestinal Hx Gastrointestinal Disorders: Yes Hx Gastroesophageal Reflux: Yes Other/Comment: history of anorexia and weight loss - Genitourinary/Gynecological Hx Genitourinary Disorders: No - Psychiatric Hx Psychophysiologic Disorder: Yes Hx Anxiety: Yes Hx Substance Use: No - Past Surgical History Past Surgical History: No Previous - Surgical History Hx Cardiac Catheterization: Yes Hx Section: Yes (x2) Hx Coronary Stent: No - Anesthesia Hx Anesthesia Reactions: No Hx Malignant Hyperthermia: No - Suicidal Assessment Feels Threatened In Home Enviroment: No Family/Social History - Physician Review Nursing Documentation Reviewed: Yes Family/Social History: Unknown Family HX Smoking Status: Former Smoker Hx Alcohol Use: No Hx Substance Use: No Hx Substance Use Treatment: No Allergies/Home Meds Allergies/Adverse Reactions: Allergies No Known Allergies Allergy (Verified 05/24/17 06:44) Home Medications: Home Meds Medication Instructions Recorded Confirmed Levothyroxine [Synthroid] 50 mcg PO DAILY 03/09/15 06/01/17 Pantoprazole Sodium [Protonix] 40 mg PO DAILY 05/24/17 06/01/17 Review of Systems - Review of Systems Constitutional: absent: Fatigue, Fevers Eyes: absent: Vision Changes ENT: absent: Hearing Changes Respiratory: absent: SOB, Cough Cardiovascular: absent: Chest Pain Gastrointestinal: Abdominal Pain, Nausea. absent: Diarrhea Skin: absent: Rash, Pruritis Psychiatric: absent: Anxiety, Depression Physical Exam Vital Signs Temp Pulse Resp BP Pulse Ox 06/01/17 12:27 56 L 18 130/72 97 06/01/17 11:18 61 18 130/80 97 06/01/17 09:39 97.5 F L 57 L 18 172/80 H 100 - Systems Exam Head: Present: Atraumatic, Normocephalic Pupils: Present: PERRL Extroacular Muscles: Present: EOMI Conjunctiva: Present: Normal Mouth: Present: Moist Mucous Membranes Neck: Present: Normal Range of Motion Respiratory/Chest: Present: Clear to Auscultation, Good Air Exchange. No: Respiratory Distress, Accessory Muscle Use Cardiovascular: Present: Regular Rate and Rhythm, Normal S1, S2. No: Murmurs Abdomen: Present: Tenderness, Distention. No: Peritoneal Signs, Rebound, Guarding Back: Present: Normal Inspection Upper Extremity: Present: Normal Inspection. No: Cyanosis, Edema Lower Extremity: Present: Normal Inspection. No: Edema Neurological: Present: GCS=15, CN II-XII Intact, Speech Normal Skin: Present: Warm, Dry, Normal Color. No: Rashes Psychiatric: Present: Alert, Oriented x 3, Normal Insight, Normal Concentration Medical Decision Making ED Course and Treatment: 06/01/17 10:04 -labs/lipase/cardiac enzyme -ekg -cxr -ct abdomen and pelvis -IVF/pepcid/zofran -observe and reassess 06/01/17 11:58 -ekg: SR @ 61 BPM with PAC, no ST elevation or depression, no T wave inversion. -cxr: no active disease -ct abdomen and pelvis show: No acute findings. There is chronic severe distention of the bladder which extends up to the level of the iliac crests. -Labs are non-significant compared with no acute findings. -Cardiac enzyme is 0.05 indeterminate, needs trending and rule out ACS -Pt. still in pain, morphine 2mg IV and NS IVF @ 50ml/hr -Calling Dr. Juarez for admission. 06/01/17 12:09 -I spoke to DR. Juarez about this case, discussed about the labs/radiology result and plan of care, agreed to admit to his service with Dr. Clarke ( cracking machine operator) for routine consult. -I discussed with the family and patient, agreed to be admitted to rule out ACS. - Lab Interpretations Lab Results: 06/01/17 10:20 06/01/17 10:20 Lab Results 06/01/17 11:18: Urine Color Light yellow, Urine Appearance Clear, Urine pH 6.0, Ur Specific Christine <= 1.005, Urine Protein Negative, Urine Glucose (UA) Negative, Urine Ketones Negative, Urine Blood Trace-intact H, Urine Nitrate Negative, Urine Bilirubin Negative, Urine Urobilinogen 0.2, Ur Leukocyte Esterase Negative, Urine RBC 1 - 3, Urine WBC 0 - 2, Ur Epithelial Cells 1 - 3, Urine Bacteria Few 06/01/17 10:20: WBC 3.1 L, RBC 4.32, Hgb 11.5 L, Hct 34.7 L, MCV 80.3, MCH 26.6 , MCHC 33.1, RDW 12.7, Plt Count 270, MPV 9.5, Gran % 69.1 H, Lymph % (Auto) 23.5, [place] % (Auto) 6.8 H, Eos % (Auto) 0.3 L, Baso % (Auto) 0.3, Gran # 2.12, Lymph # (Auto) 0.7 L, [place] # (Auto) 0.2, Eos # (Auto) 0.0, Baso # (Auto) 0.01 06/01/17 10:20: Sodium 128 L, Potassium 4.1, Chloride 91 L, Carbon Dioxide 27, Anion Gap 15, BUN 13, Creatinine 0.6 L, Est GFR ( Amer) > 60, Est GFR ( Non-Af Amer) > 60, Random Glucose 93, Calcium 9.2, Magnesium 2.0, Total Bilirubin 0.2, AST 19, ALT 23, Alkaline Phosphatase 108, Lactate Dehydrogenase 405, Total Creatine Kinase 74, Troponin I 0.05 D, Total Protein 8.2, Albumin 4.1, Globulin 4.1, Albumin/Globulin Ratio 1.0 L, Lipase 98 06/01/17 10:06: POC Glucose (mg/dL) 127 H I have reviewed the lab results: Yes - RAD Interpretation Radiology Orders: 06/01/17 10:12 ABD & PELVIS IV CONTRAST ONLY [CT] Stat CHEST PORTABLE [RAD] Stat Chest xray: CT Abdomen and Pelvis: PROCEDURE: CT Abdomen and Pelvis with contrast HISTORY: lower abdominal pain, nausea/vomiting COMPARISON: None. TECHNIQUE: Contrast dose: 100 cc of Omni 350 Radiation dose: Total exam DLP = 174 mGy-cm. This CT exam was performed using one or more of the following dose reduction techniques: Automated exposure control, adjustment of the mA and/or kV according to patient size, and/or use of iterative reconstruction technique. FINDINGS: LOWER THORAX: Unremarkable. LIVER: Unremarkable. No gross lesion or ductal dilatation. GALLBLADDER AND BILE DUCTS: Unremarkable. PANCREAS: Unremarkable. No gross lesion or ductal dilatation. SPLEEN: Unremarkable. ADRENALS: Unremarkable. No mass. KIDNEYS AND URETERS: Unremarkable. No hydronephrosis. No solid mass. VASCULATURE: Unremarkable. No aortic aneurysm. BOWEL: Unremarkable. No obstruction. No gross mural thickening. APPENDIX: Normal appendix. PERITONEUM: Unremarkable. No free fluid. No free air. LYMPH NODES: Unremarkable. No enlarged lymph nodes. BLADDER: There is chronic severe distention of the bladder which extends up to the level of the iliac crests. REPRODUCTIVE: Unremarkable. BONES: No acute fracture. OTHER FINDINGS: None. IMPRESSION: No acute findings. There is chronic severe distention of the bladder which extends up to the level of the iliac crests. Chest xray: HISTORY: medical clearance COMPARISON: 05/24/2017 FINDINGS: LUNGS: No active pulmonary disease. PLEURA: No significant pleural effusion identified, no pneumothorax apparent. CARDIOVASCULAR: Normal. OSSEOUS STRUCTURES: No significant abnormalities. VISUALIZED UPPER ABDOMEN: Normal. OTHER FINDINGS: None. IMPRESSION: No active disease. Copy Room Technician: Radiologist - EKG Interpretation EKG Interpretation (Text): 06/01/17 12:20 -ekg: SR @ 61 BPM with PAC, no ST elevation or depression, no T wave inversion. Interpreted by ED Physician: Yes Type: 12 lead EKG Comparison: Com.w/previous EKG - Medication Orders Current Medication Orders: Sodium Chloride (Sodium Chloride 0.9%) 1,000 mls @ 100 mls/hr IV .Q10H [facility] Last Admin: 06/01/17 10:30 Dose: 100 mls/hr eMAR Start Stop Document 06/01/17 10:30 EQ (Rec: 06/01/17 10:30 EQ [id number]) Intravenous Solution Start Date 06/01/17 Start Time 10:30 Sodium Chloride (Sodium Chloride 0.9%) 1,000 mls @ 70 mls/hr IV .[id number] [facility] Last Admin: 06/01/17 12:33 Dose: 70 mls/hr eMAR Start Stop Document 06/01/17 12:33 EQ (Rec: 06/01/17 12:33 EQ [id number]) Intravenous Solution Start Date 06/01/17 Start Time 12:33 Discontinued Medications Aspirin (Aspirin) 325 mg PO STAT STA Stop: 06/01/17 11:58 Last Admin: 06/01/17 12:34 Dose: 325 mg Famotidine (Pepcid) 20 mg IVP STAT STA Stop: 06/01/17 10:19 Last Admin: 06/01/17 10:36 Dose: 20 mg IVP Administration Document 06/01/17 10:36 EQ (Rec: 06/01/17 10:36 EQ [id number]) Charges for Administration # of IVP Administrations 1 Morphine Sulfate (Morphine) 2 mg IVP STAT STA Stop: 06/01/17 11:58 Last Admin: 06/01/17 12:33 Dose: 2 mg MAR Pain Assessment Document 06/01/17 12:33 EQ (Rec: 06/01/17 12:33 EQ [id number]) Pain Reassessment Is this a pain reassessment? No Sleep Is patient sleeping during reassessment? No Presence of Pain Presence of Pain Yes IVP Administration Document 06/01/17 12:33 EQ (Rec: 06/01/17 12:33 EQ [id number]) Charges for Administration # of IVP Administrations 1 Re-Assess: MAR Pain Assessment Document 06/01/17 13:33 EQ (Rec: 06/01/17 13:55 EQ [id number]) Pain Reassessment Is this a pain reassessment? Yes Sleep Is patient sleeping during reassessment? Yes Ondansetron HCl (Zofran Inj) 4 mg IVP STAT STA Stop: 06/01/17 10:19 Last Admin: 06/01/17 10:30 Dose: 4 mg IVP Administration Document 06/01/17 10:30 EQ (Rec: 06/01/17 10:30 EQ [id number]) Charges for Administration # of IVP Administrations 1 - PA / [employer] / Resident Statement /DO has reviewed & agrees with the documentation as recorded. Disposition/Present on Arrival - Present on Arrival Any Indicators Present on Arrival: No History of DVT/PE: No History of Uncontrolled Diabetes: No Urinary Catheter: No History of Decub. Ulcer: No History Surgical Site Infection Following: None - Disposition Have Diagnosis and Disposition been Completed?: Yes Diagnosis: Abdominal pain, Troponin I above reference range Disposition: HOSPITALIZED Disposition Time: 12:05 Patient Plan: Admission, Telemetry Condition: STABLE
[2017-06-01] MEDS: Sodium Chloride 0.9% 1,000 ML IV SCH ×3 (10:30→23:28)
[2017-06-01 10:32] LABS: BASO # 0.01 K/mm3 (0.0-2.0); BASO % 0.3 % (0.0-3.0); EOS % 0.3 % (1.5-5.0); GRAN # 2.12 (1.4-6.5); GRAN % 69.1 % (50.0-68.0); HEMOGLOBIN 11.5 g/dL (12.0-16.0); LYMPH # 0.7 (1.2-3.4); LYMPH % 23.5 % (22.0-35.0); MEAN CELL VOLUME 80.3 fl (80.0-105.0); MEAN CORPUSCULAR HEMOGLOBIN 26.6 pg (25.0-35.0); MEAN CORPUSCULAR HGB CONC 33.1 g/dl (31.0-37.0); MEAN PLATELET VOLUME 9.5 fl (7.0-11.0); MONO # 0.2 (0.1-0.6); MONO % 6.8 % (1.0-6.0); RBC 4.32 10^6/uL (3.5-6.1); RED CELL DISTRIBUTION WIDTH 12.7 % (11.5-14.5); WHITE BLOOD COUNT 3.1 10^3/ul (4.5-11.0)
[2017-06-01 10:43] LABS: ALBUMIN 4.1 g/dL (3.0-4.8); ALT/SGPT 23 U/L (7-56); AST/SGOT 19 U/L (14-36); BLOOD UREA NITROGEN 13 mg/dL (7-21); CALCIUM 9.2 mg/dL (8.4-10.5); GFR AFRICAN-AMERICAN > 60; GFR NON-AFRICAN AMERICAN > 60; LIPASE 98 U/L (23-300)
[2017-06-01] MEDS ORDERED: Iohexol 350 MG/100 ML VIAL ONE (10:47)
[2017-06-01 10:53] LABS: TROPONIN I 0.05 ng/mL
--- NOTE | 2017-06-01 11:22 | CT ---
PROCEDURE: CT Abdomen and Pelvis with contrast HISTORY: lower abdominal pain, nausea/vomiting COMPARISON: None. TECHNIQUE: Contrast dose: 100 cc of Omni 350 Radiation dose: Total exam DLP = 174 mGy-cm. This CT exam was performed using one or more of the following dose reduction techniques: Automated exposure control, adjustment of the mA and/or kV according to patient size, and/or use of iterative reconstruction technique. FINDINGS: LOWER THORAX: Unremarkable. LIVER: Unremarkable. No gross lesion or ductal dilatation. GALLBLADDER AND BILE DUCTS: Unremarkable. PANCREAS: Unremarkable. No gross lesion or ductal dilatation. SPLEEN: Unremarkable. ADRENALS: Unremarkable. No mass. KIDNEYS AND URETERS: Unremarkable. No hydronephrosis. No solid mass. VASCULATURE: Unremarkable. No aortic aneurysm. BOWEL: Unremarkable. No obstruction. No gross mural thickening. APPENDIX: Normal appendix. PERITONEUM: Unremarkable. No free fluid. No free air. LYMPH NODES: Unremarkable. No enlarged lymph nodes. BLADDER: There is chronic severe distention of the bladder which extends up to the level of the iliac crests. REPRODUCTIVE: Unremarkable. BONES: No acute fracture. OTHER FINDINGS: None. IMPRESSION: No acute findings. There is chronic severe distention of the bladder which extends up to the level of the iliac crests.
[2017-06-01 11:37] LABS: URINE BILIRUBIN NEGATIVE (NEGATIVE); URINE BLOOD TRACE-INTACT (NEGATIVE); URINE GLUCOSE (UA) NEGATIVE (NEGATIVE); URINE LEUKOCYTE ESTERASE NEGATIVE Leu/uL (NEGATIVE); URINE PROTEIN NEGATIVE mg/dL (<30 mg/dL); URINE UROBILINOGEN 0.2 E.U./dL (<1 E.U./dL)
[2017-06-01 11:38] LABS: URINE APPEARANCE CLEAR (CLEAR); URINE COLOR LIGHT YELLOW (YELLOW)
[2017-06-01 11:48] LABS: URINE BACTERIA FEW (NEG); URINE WBC 0 - 2 /hpf (0-6)
--- NOTE | 2017-06-01 12:49 | RAD ---
HISTORY: medical clearance COMPARISON: 05/24/2017 FINDINGS: LUNGS: No active pulmonary disease. PLEURA: No significant pleural effusion identified, no pneumothorax apparent. CARDIOVASCULAR: Normal. OSSEOUS STRUCTURES: No significant abnormalities. VISUALIZED UPPER ABDOMEN: Normal. OTHER FINDINGS: None. IMPRESSION: No active disease.
[2017-06-01 17:00] VITALS: BMI 18.3
--- NOTE | 2017-06-01 17:09 | CP.PCM.PN ---
Subjective - Date & Time of Evaluation Date of Evaluation: 06/01/17 Time of Evaluation: 16:51 - Subjective Subjective: PGY-[address] Napier CC: Need to trend trops? S: 67F with PMHx CAD s/p stents, HTN, DM, admitted for abdominal pain with N/V and r/o Chest pain. Trops is 0.05 (baseline at 0.02). Pt is able to ambulate from her bed to the bathroom without assist. She said she had throat pain, worse when drinking water. No chest pain, No abdominal pain. by bedside O: VS stable GEN: NAD, underweight HEENT: slight erythema, throat [id number] white exudate at L tonsil Card: regular, S1, S2 Pulm: CTA b/l, Abd: soft, non-distented Ext: No edema Abd CT: neg, (+) chronic severe distended bladder. CXR neg. U/A: neg for infection A/P: abdominal pain with N/V and r/o Chest pain pharyngitis, R/O strep throat vs candidiasis - rapid strep test, - Hold antibiotic decision pending test result - cepacol - trend cardiac enzyme, 5pm and 11pm Objective - Vital Signs/Intake and Output Vital Signs (last 24 hours): Temp Pulse Resp BP Pulse Ox 97.5 F L 59 L 18 128/69 97 06/01/17 09:39 06/01/17 14:19 06/01/17 14:19 06/01/17 14:19 06/01/17 14:19 - Medications Medications: Current Medications Sodium Chloride (Sodium Chloride 0.9%) 1,000 mls @ 100 mls/hr IV .Q10H [facility] Last Admin: 06/01/17 10:30 Dose: 100 mls/hr Sodium Chloride (Sodium Chloride 0.9%) 1,000 mls @ 70 mls/hr IV .[id number] [facility] Last Admin: 06/01/17 12:33 Dose: 70 mls/hr
[2017-06-01] MEDS ORDERED: Benzocaine/Menthol (Cepacol) Lozenge MT ONE (17:30)
[2017-06-01] MEDS: Benzocaine/Menthol (Cepacol) Lozenge MT SCH ×2 (17:58→22:19)
[2017-06-01 18:16] LABS: TROPONIN I 0.03 ng/mL
[2017-06-02] MEDS: Benzocaine/Menthol (Cepacol) Lozenge MT SCH ×6 (00:39→22:54)
[2017-06-02] MEDS: Sodium Chloride 0.9% 1,000 ML IV SCH ×2 (05:36→17:02)
[2017-06-02 07:06] LABS: HEMOGLOBIN 9.8 g/dL (12.0-16.0); MEAN CORPUSCULAR HEMOGLOBIN 27.1 pg (25.0-35.0); MEAN PLATELET VOLUME 9.7 fl (7.0-11.0); RBC 3.62 10^6/uL (3.5-6.1); RED CELL DISTRIBUTION WIDTH 13.1 % (11.5-14.5); WHITE BLOOD COUNT 4.7 10^3/ul (4.5-11.0)
[2017-06-02 07:39] LABS: TROPONIN I 0.03 ng/mL
[2017-06-02 08:03] LABS: ALB/GLOB RATIO 0.9 (1.1-1.8); ALBUMIN 3.1 g/dL (3.0-4.8); ALT/SGPT 17 U/L (7-56); AST/SGOT 24 U/L (14-36); BLOOD UREA NITROGEN 11 mg/dL (7-21); CALCIUM 8.1 mg/dL (8.4-10.5); GFR AFRICAN-AMERICAN > 60; GFR NON-AFRICAN AMERICAN > 60
--- NOTE | 2017-06-02 09:28 | CARD ---
APPROVED REPORT EKG Measurement Heart [id number] CA [id number] [id number] <Conclusion> Sinus rhythm [facility]
--- NOTE | 2017-06-02 16:48 | PN ---
DATE: SUBJECTIVE: The patient is a 67-year-old female, looks malnourished and cachectic, offers no complaint. According to nurse, not eating well because of her poor dental hygiene and not having dentures. Complained of some epigastric discomfort, but no documented nausea or vomiting. She did complain of some chest discomfort. PAST MEDICAL HISTORY: Significant for, 1. [id number] diabetes. 2. Hypertension. 3. Coronary artery disease, status post angioplasty. PHYSICAL EXAMINATION: GENERAL: On examination today, she is awake and alert, able to communicate. VITAL SIGNS: She is afebrile, pulse 66, respirations 18, blood pressure 155/75. LUNGS: Bilateral good airflow. No rhonchi or crackle. HEART: S1 and S2 audible. ABDOMEN: Soft. Nontender. No rebound. No guarding. NEUROLOGIC: She is awake and alert, able to communicate and ambulate. LABORATORY EXAM: WBC is 4,7, hemoglobin 9.8, hematocrit 29.7, platelet 273. Chemistry: Sodium 135, potassium 4.2, chloride 101, CO2 of 28, BUN 11, creatinine 0.6, blood sugar of 162, LDH is 286. Three sets of troponins are negative. Urinalysis is unremarkable. Flu test is negative. The EKG shows sinus rhythm and CT scan of the abdomen and pelvis was done that shows no acute finding. ASSESSMENT: 1. Chest pain, noncardiac. 2. Peptic ulcer disease. 3. History of hypertension. 4. Coronary artery disease, status post angioplasty. 5. Electrolyte imbalance. 6. Hypothyroidism. Previous record shows that the patient had endoscopy done in 09/2016 shows gastric erosions. PLAN: The patient is currently on IV fluid. She is on famotidine and put her on Protonix with Dr. Patterson to evaluate the patient. We can discontinue telemetry. Vitaliy Beckwith MD
[2017-06-02] MEDS: Levothyroxine 50 MCG TAB PO SCH (16:58)
[2017-06-02] MEDS: Pantoprazole 40 mg EC Tab PO SCH (16:58)
[2017-06-03] MEDS: Benzocaine/Menthol (Cepacol) Lozenge MT SCH ×6 (00:16→20:00)
[2017-06-03] MEDS: Pantoprazole 40 mg EC Tab PO SCH (09:22)
[2017-06-03] MEDS: Levothyroxine 50 MCG TAB PO SCH (09:26)
--- NOTE | 2017-06-03 16:54 | PN ---
DATE: SUBJECTIVE: The patient is 67 years old, awake and alert, complained of not feeling well. Has poor appetite. Complained of sore throat. No fever or chills. PHYSICAL EXAMINATION VITAL SIGNS: She is afebrile, pulse 57, respirations 18, blood pressure 120/58. LUNGS: Bilateral fair airflow. No rhonchi or crackle. HEART: S1 and S2 audible. ABDOMEN: Soft. Nontender. No rebound. No guarding. NEUROLOGIC: The patient is awake and alert, able to communicate. ASSESSMENT: 1. Cachexia and malnutrition. 2. Noncardiac chest pain. 3. History of peptic ulcer disease. 4. Hypothyroidism. PLAN: Dr. Patterson has been consulted, awaiting his input. Encourage p.o. intake. Dr. Napier will follow up the patient. Vitaliy Beckwith MD
[2017-06-03] MEDS: Sodium Chloride 0.9% 1,000 ML IV SCH (17:18)
[2017-06-04 08:19] VITALS: RESP 18
[2017-06-04] MEDS: Benzocaine/Menthol (Cepacol) Lozenge MT SCH ×4 (08:19→17:46)
[2017-06-04] MEDS: Pantoprazole 40 mg EC Tab PO SCH ×3 (10:09→14:39)
[2017-06-04] MEDS: Levothyroxine 50 MCG TAB PO SCH ×3 (10:09→14:39)
--- NOTE | 2017-06-04 11:17 | CT ---
PROCEDURE: CT Chest without contrast HISTORY: dysphagia neck pain COMPARISON: None. TECHNIQUE: Contiguous axial images were obtained through the chest without intravenous contrast enhancement. Sagittal and coronal reconstructions were performed. Radiation dose (DLP): mGy-cm. This CT exam was performed using one or more of the following dose reduction techniques: Automated exposure control, adjustment of the mA and/or kV according to patient size, and/or use of iterative reconstruction technique. FINDINGS: NASOPHARYNX: Unremarkable. SUPRAHYOID NECK: Unremarkable oropharynx, oral cavity, parapharyngeal space and retropharyngeal space. INFRAHYOID NECK: Unremarkable larynx, hypopharynx, and supraglottic space. Vocal cords intact. MASS: None. GLANDS: Parotid and submandibular glands unremarkable. Normal size thyroid gland, without nodule. LYMPH NODES: Normal. No lymphadenopathy. CERVICAL SPINE: No fracture or focal lesion. OTHER FINDINGS: 1 centimeter nodule in the left lobe of the thyroid gland. LUNGS: Clear lungs. Visualized airway clear. MEDIASTINUM: Unremarkable thoracic aorta. No aneurysm. Normal sized heart. Main pulmonary artery unremarkable. No vascular congestion. No lymphadenopathy. PLEURA: Minimal left pleural effusion. BONES: No fracture. No destructive lesion. UPPER ABDOMEN: Grossly unremarkable. OTHER FINDINGS: None. IMPRESSION: 1 centimeter nodule in the left lobe of the thyroid gland. Minimal left pleural effusion.
--- NOTE | 2017-06-04 13:31 | HP ---
CHIEF COMPLAINT AND HISTORY OF PRESENT ILLNESS: This is a 67-year-old female who is coming into the hospital with complaints of abdominal pain. She has been having nausea and vomiting. The patient has a past medical history of hypertension, hypothyroidism. She has had extensive workup for her throat pain. She had an endoscopy and laryngoscopy with no significant abnormalities. The patient has no complaints of any fevers or chills. No nausea or vomiting. REVIEW OF SYMPTOMS: Limited. ALLERGIES: NO KNOWN DRUG ALLERGIES. HOME MEDICATIONS: Have been reviewed on the [facility]. PAST MEDICAL HISTORY: Hypertension, diabetes type 2, peptic ulcer disease, constipation. PAST SURGICAL HISTORY: EGD done in May 2017, laryngoscopy done in May 2017. FAMILY HISTORY: Noncontributory. PHYSICAL EXAMINATION: VITAL SIGNS: She has temperature of 98, pulse of 53, blood pressure 134/59, respirations 18. GENERAL: The patient lying in bed, uncomfortable, and in no acute distress. HEENT: Atraumatic and normocephalic. Anicteric sclerae. Moist mucosa. [place] conjunctivae. No oral lesions. NECK: No JVD, anterior and posterior adenopathy, thyromegaly, or bruits. CARDIOVASCULAR: S1 and S2 regular. No murmur, rubs, or gallop. LUNGS: Clear to auscultation bilaterally. No wheezes, rales, or rhonchi. ABDOMEN: Bowel sounds are positive. Soft, nontender and nondistended. No hepatosplenomegaly. No rebound and no guarding EXTREMITIES: No cyanosis, clubbing, or edema. NEUROLOGIC: No facial asymmetry. Tongue is midline. No uvula deviation. Power is 5/5 upper extremity and lower extremity. Sensation intact in upper extremity and lower extremity. PSYCHIATRIC: She is awake, alert and oriented x3. No anxiety or depression. She has normal affect. GENITOURINARY: No CVA tenderness. VASCULAR: 2+ pulses in the carotid pulses and pedal pulses. SKIN: No erythema or nodules SPINE: Shows normal curvature. LABORATORY DATA: Have been reviewed. ASSESSMENT: 1. Noncardiac chest pain. 2. Nausea and vomiting. 3. Abdominal pain secondary to constipation. 4. Malnutrition. 5. Globus sensation. PLAN: The patient is going to be admitted to the hospital. She is going to be placed on Protonix. She is going to be getting Cepacol for her throat. She is on Synthroid for hypothyroidism. The patient is going to be seen by Dr. Clarke for evaluation. Her troponin has been negative on the labs. We will need to get continued troponin checks. She has hyponatremia and she will be given IV fluids. Ramy Napire MD
[2017-06-04 16:25] VITALS: BP 139/63; PULSE 52; TEMP 98.1; O2SAT 99
--- NOTE | 2017-06-05 06:13 | DS ---
CHIEF COMPLAINT: Patient continues to complain of difficulty in her throat. She has had a full workup with ENT as well as endoscopy from GI. The patient had come back to the ER as she was complaining of abdominal pain. She had a CAT scan done of her abdomen for chronic severe distention of the bladder. She has no complaints of any chest pain or shortness of breath. No headaches. PHYSICAL EXAMINATION: VITAL SIGNS: Temperature is 98.8, pulse of 60, blood pressure 119/50, respirations 20. GENERAL: The patient is lying in bed, flat, comfortable. HEENT: No oral lesion. Anicteric sclerae. Moist mucosa. NECK: No JVD, adenopathy, or thyromegaly. CARDIOVASCULAR: S1 and S2, regular. No murmurs, rubs, or gallops. LUNGS: Clear to auscultation bilaterally. No wheeze, rales, or rhonchi. ABDOMEN: Bowel sounds are positive, soft, nontender and nondistended. EXTREMITIES: No cyanosis, clubbing or edema. ASSESSMENT: 1. Abdominal pain, improved. 2. Globus sensation. 3. Malnutrition. 4. Cachexia. 5. B12 deficiency. 6. Hypothyroidism. PLAN: The patient is on Protonix. She is on IV fluids, I will discontinue patient's IV fluids. Patient is on Synthroid. She is on a heart-healthy diet. Patient refused to take medications. Patient was seen by Dr. Patterson who met with the patient yesterday. Patient has refused a colonoscopy. We will discharge the patient home. Follow as an outpatient. Condition is stable. Activities, increase as tolerated. She has been urinating okay. Ramy Napier MD
== END 2017-06-04 17:56 | disposition home or self-care (01) ==
LOC: ED 09:38 → ERH 12:08 → 2RNO 14:48 → 5RSO 06-03 01:09
PROVIDERS: ADMIT Internal Medicine Nephrology; ATTEND Internal Medicine Nephrology
DX: R07.89 Other chest pain (principal); R10.9 Unspecified abdominal pain; I25.10 Atherosclerotic heart disease of native coronary artery without angina pectoris; E03.9 Hypothyroidism, unspecified; I10 Essential (primary) hypertension; K21.9 Gastro-esophageal reflux disease without esophagitis; H40.9 Unspecified glaucoma; F45.8 Other somatoform disorders; E46 Unspecified protein-calorie malnutrition; E53.8 Deficiency of other specified B group vitamins; E11.9 Type 2 diabetes mellitus without complications; K27.9 Peptic ulcer, site unspecified, unspecified as acute or chronic, without hemorrhage or perforation; K59.00 Constipation, unspecified; R64 Cachexia; Z87.11 Personal history of peptic ulcer disease; Z95.5 Presence of coronary angioplasty implant and graft
CPT/HCPCS: 36415; 70490; 71045; 71250; 74177; 80053; 81001; 82550; 82948; 83615; 83690; 83735; 84484; 85025; 85027; 87070; 87430; 93005; 96374; 96375; 96376; 97116; 97161; 97530; 99285; C9113; G0378; G8978; G8979; J2270; J2405; J7040; Q9967

== ENCOUNTER 2017-06-09 09:03 | Inpatient (IN) | payer MEDICARE, OTHER ==
[2017-06-09 09:13] VITALS: BMI 17.4
[2017-06-09] MEDS ORDERED: Sodium Chloride 0.9% 500 ML IV STA (09:29)
[2017-06-09] MEDS ORDERED: Morphine 4 mg/ml ISec IVP STA (09:29)
--- NOTE | 2017-06-09 09:39 | ED PDOC ---
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), Other (medical records) EM Caveat: Language Barrier - History of Present Illness Narrative History of Present Illness (Text): 06/09/17 09:32 pt p/w + worsening throat pain, and epigastric pain/abd pain; pt was recently admitted for similar discomfort and received endoscopy with negative findings; pt states she can only drink water and swallowing her medications/pills is becoming harder; pt states her throat pain/abd pain is now severe at 10/10; pt does not have any new medications at home; pt states + gagging/nausea, no vomiting, + appetite but she cant eat, pt claims to have lost tremendous amount of weight; pt states chest pressure, + intermittent sob, no urinary/bowel changes, no bleeding, no fall/trauma/sick contact, 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 PCP: Dr Galdamez Time/Duration: Other (chronic, but worsening over the last few days) Symptom Onset: Gradual Symptom Course: Worsening Quality: Aching, Cramping Severity Level: 10, Severe Activities at Onset: Rest Context: Home Past Medical History - Provider Review Nursing Documentation Reviewed: Yes - Travel History Have you recently traveled outside [place] w/in the past 3 mons?: No - Past History Past History: No Previous - Infectious Disease Hx of Infectious Diseases: None - Tetanus Immunization Tetanus Immunization: Unknown - Reproductive Menopause: Yes Currently : No - Past Medical History Past Medical History: Non-Contributing - Cardiac Hx Hypertension: Yes - Pulmonary Hx Respiratory Disorders: No - Neurological Hx Neurological Disorder: No - HEENT Hx Difficulty Chewing: Yes Hx Glaucoma: Yes - Renal Hx Renal Disorder: No - Endocrine/Metabolic Hx Diabetes Mellitus Type 2: Yes Hx Hypothyroidism: Yes - Hematological/Oncological Hx Blood Transfusions: No Hx Blood Transfusion Reaction: No - Integumentary Hx Dermatological Disorder: Yes - Musculoskeletal/Rheumatological Hx Falls: No - Gastrointestinal Hx Gastrointestinal Disorders: Yes Hx Gastrointestinal Ulcer: Yes - Genitourinary/Gynecological Hx Genitourinary Disorders: No - Psychiatric Hx Anxiety: Yes Hx Bipolar Disorder: Yes Hx Depression: Yes Hx Panic Disorder: Yes Hx Substance Use: No - Past Surgical History Past Surgical History: No Previous - Surgical History Hx Cardiac Catheterization: Yes Hx Section: Yes (x2) Hx Coronary Stent: No - Anesthesia Hx Anesthesia Reactions: No Hx Malignant Hyperthermia: No - Suicidal Assessment Feels Threatened In Home Enviroment: No Family/Social History - Physician Review Nursing Documentation Reviewed: Yes Family/Social History: No Known Family HX Smoking Status: Never Smoked Hx Alcohol Use: No Hx Substance Use: No Hx Substance Use Treatment: No Allergies/Home Meds Allergies/Adverse Reactions: Allergies No Known Allergies Allergy (Verified 05/24/17 06:44) Home Medications: Home Meds Medication Instructions Recorded Confirmed Levothyroxine [Synthroid] 50 mcg PO DAILY 03/09/15 06/09/17 Pantoprazole Sodium [Protonix] 40 mg PO DAILY 05/24/17 06/09/17 Review of Systems - Review of Systems Constitutional: Fatigue, Weight Change Eyes: Normal ENT: Normal Respiratory: SOB. absent: Cough Cardiovascular: Chest Pain Gastrointestinal: Abdominal Pain, Nausea, Appetite Changes Genitourinary Female: Normal Musculoskeletal: Normal Skin: Normal Neurological: Normal Endocrine: Normal Hemo/Lymphatic: Normal Psychiatric: Normal Physical Exam Vital Signs Reviewed: Yes Vital Signs Temp Pulse Resp BP Pulse Ox 06/09/17 13:05 64 18 154/89 H 100 06/09/17 09:04 98 F 70 18 130/69 100 Temperature: Afebrile Blood Pressure: Normal Pulse: Regular Respiratory Rate: Normal Appearance: Positive for: Well-Appearing, Uncomfortable, Cachectic, Other ( resting in bed, uncomfortable, alert/awake, GCS = 15, oriented x 3, mild distress due to pain, cooperative) Pain Distress: Mild Mental Status: Positive for: Alert and Oriented X 3 - Systems Exam Head: Present: Atraumatic, Normocephalic, Other (bi-temporal wasting) Pupils: Present: PERRL, Other (no nystagmus, no photophobia, sclera anicteric) Extroacular Muscles: Present: EOMI Conjunctiva: Present: Normal Ears: Present: Normal Mouth: Present: Dry, Other (dry oral mucosa, uvula/tongue are midline, no exudate/lesions, no drooling/stridor) Pharnyx: Present: Normal Nose (External): Present: Atraumatic Nose (Internal): Present: Normal Inspection Neck: Present: Normal Range of Motion, Trachea Midline, Other (no step off; no midline tenderness). No: Meningeal Signs, MIDLINE TENDERNESS Respiratory/Chest: Present: Clear to Auscultation, Good Air Exchange, Other ( CTA b/l, no w/r/r, no tachypenia). No: Respiratory Distress, Accessory Muscle Use, Wheezes Cardiovascular: Present: Regular Rate and Rhythm, Normal S1, S2. No: Murmurs Abdomen: Present: Normal Bowel Sounds, Other (thin female, mild diffuse mid abd tenderness, no garcia's sign, no mcburney's point tenderness, no masses/rebound/ guarding/rigidity) Back: Present: Normal Inspection. No: CVA Tenderness, Midline Tenderness Upper Extremity: Present: Normal Inspection, Normal ROM, NORMAL PULSES, Neurovascularly Intact. No: Deformity Lower Extremity: Present: Normal Inspection, NORMAL PULSES, Normal ROM, Neurovascularly Intact. No: Deformity Neurological: Present: GCS=15, CN II-XII Intact, Speech Normal Skin: Present: Warm, Normal Color, Other (cap refill ~ 1sec, no ulcerations, no petechiae, no rashes) Psychiatric: Present: Alert, Oriented x 3 Medical Decision Making ED Course and Treatment: 06/09/17 0930 Impression: throat pain, epigastric/abd pain - acute on chronic? i have consider all the differential diagnosis regarding pt's chief medical complaints/clinical findings, including but are not limited to: throat pain, epigastric/abd pain - acute on chronic? A/P: throat pain, epigastric/abd pain - acute on chronic? - labs - cxr - ekg - iv - supportive care - observe/reevaluation 06/09/17 12:34 pt is able to drink fluids well, but unable to tolerate solids pt continues to complain of throat pain/abd pain pt states she does not feel well paging Dr Napier 06/09/17 12:40 Dr Otto, status controller for Dr Napier, contacted, made aware, agrees with admission pt is made aware of her medical results pt agrees with admission Re-evaluation Time: 12:34 Reassessment Condition: Improving,but remains with symptoms - Lab Interpretations Lab Results: 06/09/17 09:59 06/09/17 09:59 Lab Results 06/09/17 10:14: pO2 42, VBG pH 7.37, VBG pCO2 54.0, VBG HCO3 31.2 H, VBG Total CO2 32.9 H, VBG O2 Sat (Calc) 81.6 H, VBG Base Excess 4.5 H, VBG Potassium 5.0, Glucose 113 H, Lactate 1.8, FiO2 21.0, Sodium 126.0 L, Chloride 94.0 L, Venous Blood Potassium 5.0 06/09/17 09:59: Serum Osmolality 267 L 06/09/17 09:59: Sodium 127 L, Potassium 4.9, Chloride 89 L, Carbon Dioxide 28, Anion Gap 15, BUN 9, Creatinine 0.6 L, Est GFR ( Amer) > 60, Est GFR (Non -Af Amer) > 60, Random Glucose 121 H, Calcium 8.9, Total Bilirubin 0.1 L, AST 23 , ALT 23, Alkaline Phosphatase 106, Total Protein 7.7, Albumin 4.0, Globulin 3.7 , Albumin/Globulin Ratio 1.1, Lipase 78 06/09/17 09:59: PT 11.5, INR 1.00, APTT 30.2 06/09/17 09:59: WBC 4.9, RBC 4.13, Hgb 11.1 L, Hct 33.4 L, MCV 80.9, MCH 26.9, MCHC 33.2, RDW 13.3, Plt Count 319, MPV 8.8, Gran % 74.4 H, Lymph % (Auto) 17.7 L, [place] % (Auto) 7.1 H, Eos % (Auto) 0.4 L, Baso % (Auto) 0.4, Gran # 3.66, Lymph # (Auto) 0.9 L, [place] # (Auto) 0.4, Eos # (Auto) 0.0, Baso # (Auto) 0.02 I have reviewed the lab results: Yes Interpretation: Abnormal lab values (decr Na) - RAD Interpretation Narrative RAD Interpretations (Text): 06/09/17 13:53 CXR - NAD Radiology Orders: 06/09/17 09:39 HEAD W/O CONTRAST [CT] Stat 06/09/17 12:34 CHEST PORTABLE [RAD] Stat Shower Enclosure Installer: ED Physician - EKG Interpretation EKG Interpretation (Text): 06/09/17 12:46 SINUS melinda at 50 bpm, normal axis, no ectopy, no s-t changes, Borderline EKG; unchanged compare with old ekg 05/2017 Interpreted by ED Physician: Yes Type: 12 lead EKG Comparison: Similar to previous EKG - Medication Orders Current Medication Orders: Discontinued Medications Famotidine (Pepcid) 20 mg IVP STAT STA Stop: 06/09/17 09:30 Last Admin: 06/09/17 10:38 Dose: 20 mg IVP Administration Document 06/09/17 10:38 GMD (Rec: 06/09/17 10:38 GMD [id number]) Charges for Administration # of IVP Administrations 1 Hydromorphone HCl (Dilaudid) 0.5 mg IVP STAT STA Stop: 06/09/17 10:28 Last Admin: 06/09/17 10:38 Dose: 0.5 mg MAR Pain Assessment Document 06/09/17 10:38 GMD (Rec: 06/09/17 10:38 GMD [id number]) Pain Reassessment Is this a pain reassessment? No Presence of Pain Presence of Pain Yes IVP Administration Document 06/09/17 10:38 GMD (Rec: 06/09/17 10:38 GMD [id number]) Charges for Administration # of IVP Administrations 1 Sodium Chloride (Sodium Chloride 0.9%) 500 mls @ 1,000 mls/hr IV .Q30M STA Stop: 06/09/17 09:58 Last Admin: 06/09/17 10:40 Dose: 1,000 mls/hr eMAR Start Stop Document 06/09/17 10:40 GMD (Rec: 06/09/17 10:41 GMD [id number]) Intravenous Solution Start Date 06/09/17 Start Time 10:40 End Date 06/09/17 End time 11:10 Total Infusion Time 30 Lidocaine HCl (Lidocaine 2% Viscous) 15 ml MM STAT STA Stop: 06/09/17 09:31 Last Admin: 06/09/17 10:38 Dose: 15 ml Disposition/Present on Arrival - Present on Arrival Any Indicators Present on Arrival: No History of DVT/PE: No History of Uncontrolled Diabetes: No Urinary Catheter: No History of Decub. Ulcer: No History Surgical Site Infection Following: None - Disposition Have Diagnosis and Disposition been Completed?: Yes Diagnosis: Hyponatremia, Dysphagia, Failure to thrive in adult, Intractable abdominal pain , Failure to thrive, Dehydration, Gastroparesis Disposition: HOSPITALIZED Disposition Time: 12:40 Isolation: Contact Patient Plan: Admission Patient Problems: Current Active Problems Problem Status Onset Dehydration Acute Dysphagia Acute Failure to thrive Acute Failure to thrive in adult Acute Hyponatremia Acute Intractable abdominal pain Acute Gastroparesis Chronic Condition: STABLE
[2017-06-09 10:03] LABS: BASO # 0.02 K/mm3 (0.0-2.0); BASO % 0.4 % (0.0-3.0); EOS % 0.4 % (1.5-5.0); GRAN # 3.66 (1.4-6.5); GRAN % 74.4 % (50.0-68.0); HEMOGLOBIN 11.1 g/dL (12.0-16.0); LYMPH # 0.9 (1.2-3.4); LYMPH % 17.7 % (22.0-35.0); MEAN CELL VOLUME 80.9 fl (80.0-105.0); MEAN CORPUSCULAR HEMOGLOBIN 26.9 pg (25.0-35.0); MEAN CORPUSCULAR HGB CONC 33.2 g/dl (31.0-37.0); MEAN PLATELET VOLUME 8.8 fl (7.0-11.0); MONO # 0.4 (0.1-0.6); MONO % 7.1 % (1.0-6.0); RBC 4.13 10^6/uL (3.5-6.1); RED CELL DISTRIBUTION WIDTH 13.3 % (11.5-14.5); WHITE BLOOD COUNT 4.9 10^3/ul (4.5-11.0)
[2017-06-09 10:12] LABS: PARTIAL THROMBOPLASTIN TIME 30.2 Seconds (25.1-36.5); PROTHROMBIN TIME 11.5 SECONDS (9.4-12.5)
[2017-06-09] MEDS ORDERED: HYDROmorphone 0.5 mg/0.5 ml ISec IVP STA (10:27)
[2017-06-09 10:28] LABS: VENOUS BLOOD GAS BASE EXCESS 4.5 mmol/L (0.0-2.0); VENOUS BLOOD GAS PO2 42 mm/Hg (30-55); VENOUS BLOOD PH 7.37 (7.32-7.43)
[2017-06-09 10:32] LABS: ALB/GLOB RATIO 1.1 (1.1-1.8); ALT/SGPT 23 U/L (7-56); AST/SGOT 23 U/L (14-36); BLOOD UREA NITROGEN 9 mg/dL (7-21); CALCIUM 8.9 mg/dL (8.4-10.5); GFR AFRICAN-AMERICAN > 60; GFR NON-AFRICAN AMERICAN > 60; LIPASE 78 U/L (23-300)
--- NOTE | 2017-06-09 13:56 | RAD ---
HISTORY: weakness, chest pain COMPARISON: Comparison chest 06/01/2017 FINDINGS: LUNGS: No active pulmonary disease. PLEURA: No significant pleural effusion identified, no pneumothorax apparent. CARDIOVASCULAR: Normal. OSSEOUS STRUCTURES: Minor multilevel degenerative spondylosis of the thoracic spine VISUALIZED UPPER ABDOMEN: Normal. OTHER FINDINGS: None. IMPRESSION: No active disease.
--- NOTE | 2017-06-09 16:47 | CT ---
PROCEDURE: CT HEAD WITHOUT CONTRAST. HISTORY: Can't swallowed,, r/o CVA vs tia COMPARISON: Comparison made with prior CT scan 10/09/2016. TECHNIQUE: Axial computed tomography images were obtained through the head/brain without intravenous contrast. Radiation dose: Total exam DLP = 662.29 mGy-cm. This CT exam was performed using one or more of the following dose reduction techniques: Automated exposure control, adjustment of the mA and/or kV according to patient size, and/or use of iterative reconstruction technique. FINDINGS: HEMORRHAGE: No acute parenchymal, subarachnoid or extra-axial hemorrhage. BRAIN: No evidence of large acute infarct. Note that the possibility of a small hyperacute infarct cannot be completely excluded on this study. There may be a few scattered chronic left basal nuclei lacunar type infarcts. No obvious parenchymal nor extra-axial mass or collection. Mild moderate generalized volume loss VENTRICLES: No obstructive hydrocephalus. CALVARIUM: Unremarkable. Calvarium intact. No evidence of acute calvarial fractures seen. PARANASAL SINUSES: Frontal and maxillary sinuses remain hypoplastic. Pain. Remaining visualized paranasal sinuses MASTOID AIR CELLS: Re- demonstrated are sclerotic underpneumatized mastoid air complexes with opacification in multiple residual aerated mastoid air cells. OTHER FINDINGS: Orbits and contents unremarkable. IMPRESSION: No acute intracranial hemorrhage or an large acute infarct so far as can be seen. There may be a few scattered chronic left basal nuclei lacunar type infarcts. Mild moderate generalized volume loss.
[2017-06-09 17:49] LABS: URINE BILIRUBIN NEGATIVE (NEGATIVE); URINE BLOOD NEGATIVE (NEGATIVE); URINE GLUCOSE (UA) NEGATIVE (NEGATIVE); URINE LEUKOCYTE ESTERASE NEGATIVE Leu/uL (NEGATIVE); URINE PROTEIN NEGATIVE mg/dL (<30 mg/dL); URINE UROBILINOGEN 0.2 E.U./dL (<1 E.U./dL)
[2017-06-09 17:51] LABS: URINE APPEARANCE CLEAR (CLEAR); URINE COLOR YELLOW (YELLOW)
[2017-06-09] MEDS ORDERED: Pneumococcal 23-Valent Vaccine IM ONE (22:19)
[2017-06-09] MEDS ORDERED: Sodium Chloride 0.9% 1,000 ML IV ONE (22:46)
--- NOTE | 2017-06-09 23:39 | CARD ---
APPROVED REPORT EKG Measurement Heart [id number] <Conclusion> Marked sinus bradycardia with sinus arrhythmia Abnormal ECG
[2017-06-10 08:55] LABS: BLOOD UREA NITROGEN 6 mg/dL (7-21); GFR AFRICAN-AMERICAN > 60; GFR NON-AFRICAN AMERICAN > 60
--- NOTE | 2017-06-10 10:12 | HP ---
DATE OF EXAM: 06/09/2017 HISTORY OF PRESENT ILLNESS: Ms. Pierre is a 67-year-old female presented to the ED with generalized weakness, inability to swallow, cachexia. She has multiple admissions regarding the similar complaint. She had extensive workup done in the past with EGD, colonoscopy, CAT scan of the chest, abdomen and pelvis. No occult malignancy identified. No reason for dysphagia identified. She was evaluated by Psych also during last hospitalization. She also has a history of pancytopenia and B12 deficiency. She was found to have bed bugs on clothing noted in ED, she was isolated for that. REVIEW OF SYSTEMS: As per HPI. Rest of 12-point review of systems reviewed negative. ALLERGIES: NO KNOWN DRUG ALLERGIES: HOME MEDICATIONS: Synthroid, Protonix. PAST MEDICAL HISTORY: Hypertension, diabetes mellitus type 2, peptic ulcer disease, constipation, cachexia. PAST SURGICAL HISTORY: Underwent EGD, colonoscopy. FAMILY HISTORY: Not contributory. PERSONAL HISTORY: Nonsmoker. No history of alcohol abuse. PHYSICAL EXAMINATION: GENERAL: Cachexia. VITAL SIGNS: Temperature 98.5, heart rate 60 per minute, blood pressure 110/60. HEENT: Pallor positive. NECK: No lymphadenopathy. CHEST: Air entry present and equal bilateral. No added sound. CARDIOVASCULAR: S1, S2 normal. No murmur. No gallop. ABDOMEN: Soft, nontender. No hepatosplenomegaly. EXTREMITY: No edema. BENCH EXAMINER: Alert, oriented x3. No focal sensorimotor deficit. LABORATORY DATA: White count 4.9, hemoglobin 11, hematocrit 33.4, platelet 319. Sodium 127, potassium 4.9, BUN 9, creatinine 0.6, calcium 8.9, total bilirubin 0.1. ASSESSMENT AND PLAN: 1. Cachexia 2. Possible eating disorder 3. Bed bugs on clothing 4. Dysphagia 5. B12 deficiency She will be admitted to the hospital. IV fluid at 100 mL an hour. Synthroid 50 mcg daily. We will get the palliative consult with Gregoria Watson. Gastroenterology consultation, Dr. Patterson, requested. We will contact News Specialist for social issues. We will monitor the electrolytes. Hyponatremia likely related to poor oral intake. Hemodynamically stable. Anna Otto MD MTDD
--- NOTE | 2017-06-10 10:18 | PN ---
DATE: 06/10/2017 FOLLOWUP NOTE SUBJECTIVE: She is comfortable in bed, in no acute distress. Oral intake is poor. Unable to swallow. Vitals stable. She came with hyponatremia. Sodium is still low at 127. She is currently on IV fluids. Her complaints are unable to swallow. REVIEW OF SYSTEMS: As per HPI. Rest of 12-point review of systems reviewed negative. PHYSICAL EXAMINATION: GENERAL: Comfortable in bed, in no acute distress. VITAL SIGNS: Temperature 97.5, heart rate is 72 per minute, blood pressure 122/56, respiratory rate 18 per minute, oxygen saturation 96% on room air. HEENT: Pallor positive. NECK: No lymphadenopathy. CHEST: Air entry present and equal bilateral. No added sound. CARDIOVASCULAR: S1 and S2 normal. No murmur. No gallop. ABDOMEN: Soft, nontender. No hepatosplenomegaly. Cachexia plus. SYSTEMS INTEGRATION ADVISOR: Alert and oriented x3. No focal sensorimotor deficit. LABORATORY DATA: Sodium 127, potassium 4.3, chloride 91, creatinine 0.5, glucose 134. ASSESSMENT: 1. Cachexia. 2. B12 deficiency. 3. Dysphagia. 4. Failure to thrive. 5. Bed bugs infestation PLAN: We will continue IV fluid at 80 mL an hour, Synthroid. Liquid diet. GI consultation, Dr. Patterson, requested. She will need Labor Contractor help for placement/hospice care. Anna Otto MD MTDD
[2017-06-10] MEDS: Levothyroxine 50 MCG TAB PO SCH (10:38)
[2017-06-11] MEDS: Sodium Chloride 0.9% 1,000 ML IV SCH ×2 (02:31→18:43)
[2017-06-11 07:23] LABS: HEMOGLOBIN 10.6 g/dL (12.0-16.0); MEAN CELL VOLUME 79.5 fl (80.0-105.0); MEAN CORPUSCULAR HEMOGLOBIN 25.9 pg (25.0-35.0); MEAN CORPUSCULAR HGB CONC 32.6 g/dl (31.0-37.0); MEAN PLATELET VOLUME 8.8 fl (7.0-11.0); RBC 4.09 10^6/uL (3.5-6.1); RED CELL DISTRIBUTION WIDTH 13.2 % (11.5-14.5); WHITE BLOOD COUNT 3.7 10^3/ul (4.5-11.0)
[2017-06-11 07:57] LABS: ALBUMIN 3.5 g/dL (3.0-4.8); ALT/SGPT 19 U/L (7-56); AST/SGOT 23 U/L (14-36); BLOOD UREA NITROGEN 7 mg/dL (7-21); CALCIUM 8.7 mg/dL (8.4-10.5); GFR AFRICAN-AMERICAN > 60; GFR NON-AFRICAN AMERICAN > 60
[2017-06-11] MEDS: Levothyroxine 50 MCG TAB PO SCH (10:16)
--- NOTE | 2017-06-11 13:43 | CP.PCM.CON ---
History of Present Illness - History of Present Illness History of Present Illness: Palliative consult requested by Dr Keely Otto copied to Dr Prashanth Napier Reason: Goals of care 67 year old Nauruan speaking female with history of HTN,DM peptic ulcer who presented with generalized weakness, pain and difficulty swallowing and cachexia.She was also found to have bed bugs. Head CT showed no acute fundings. Chest x ray negative. Lab; hyponatremia, hyperglycemia. The patient has been admitted multiple times with similar complaints. Previous work up EGD, CT scan of chest abdomen and pelvis did not identify causative factor for her complaints. She was also seen by Psychiatry who found no acute problem. PMHx: HTN,DM, Peptic Ulcer, hypothyroidism,anorexia, cachexia, pancytopenia, constipation. Social History: Non smoker, no alcohol or drug use. , lives with spouse and daughter. Family History: Non contributory. Advance Care Planning:The patient does not have an Advanced Directive. Review of Systems: As per HPI, otherwise negative review. Past Patient History - Infectious Disease Hx of Infectious Diseases: None - Tetanus Immunizations Tetanus Immunization: Unknown - Past Social History Smoking Status: Never Smoked - CARDIAC Hx Angina: Yes Hx Hypercholesterolemia: Yes Hx Hypertension: Yes - PULMONARY Hx Respiratory Disorders: No - NEUROLOGICAL Hx Neurological Disorder: No - HEENT Hx Difficulty Chewing: Yes Hx Glaucoma: Yes - RENAL Hx Chronic Kidney Disease: No - ENDOCRINE/METABOLIC Hx Diabetes Mellitus Type 2: Yes Hx Hypothyroidism: Yes - HEMATOLOGICAL/ONCOLOGICAL Hx Blood Disorders: No Hx AIDS: No Hx Anemia: No Hx Cancer: No Hx Chemotherapy: No Hx Cirrhosis: No Hx Hepatitis A: No Hx Hepatitis B: No Hx Hepatitis C: No Hx Metastesis: No Hx Shingles: No Hx Unexplained Bleeding: No - INTEGUMENTARY Hx Dermatological Problems: Yes Other/Comment: dry skin to feet, long thick toenails left foot toenail great toe overlaps 2nd toe, pt on contact isolation for bedbugs - MUSCULOSKELETAL/RHEUMATOLOGICAL Hx Falls: No Hx Unsteady Gait: Yes - GASTROINTESTINAL Hx Gastrointestinal Disorders: Yes (weight loss) HX Swallowing Problems: Yes (sore throat) Hx Ulcer: Yes - GENITOURINARY/GYNECOLOGICAL Hx Genitourinary Disorders: No - PSYCHIATRIC Hx Anxiety: Yes Hx Bipolar Disorder: Yes Hx Depression: Yes Hx Panic Symptoms: Yes Hx Substance Use: No - SURGICAL HISTORY Hx Surgeries: Yes ( x 2) Hx Cardiac Catheterization: Yes Hx Coronary Stent: No - ANESTHESIA Hx Anesthesia Reactions: No Hx Malignant Hyperthermia: No Meds Allergies/Adverse Reactions: Allergies Allergy/AdvReac Type Severity Reaction Status Date / Time No Known Allergies Allergy Verified 05/24/17 06:44 - Medications Medications: Current Medications Sodium Chloride (Sodium Chloride 0.9%) 1,000 mls @ 80 mls/hr IV .[id number] [facility] Stop: 06/12/17 16:14 Last Admin: 06/11/17 02:31 Dose: Not Given Levothyroxine Sodium (Synthroid) 50 mcg PO DAILY [facility] Last Admin: 06/11/17 10:16 Dose: 50 mcg Physical Exam - Constitutional Appears: Chronically Ill - Head Exam Head Exam: NORMOCEPHALIC - Eye Exam Eye Exam: Normal appearance, PERRL - ENT Exam ENT Exam: Mucous Membranes Moist, Normal Oropharynx Additional comments: poor dentation - Neck Exam Neck exam: Positive for: Normal Inspection - Respiratory Exam Respiratory Exam: Clear to Auscultation Bilateral, NORMAL BREATHING PATTERN - Cardiovascular Exam Cardiovascular Exam: REGULAR RHYTHM, +S1, +S2 - GI/Abdominal Exam GI & Abdominal Exam: Normal Bowel Sounds, Soft - Extremities Exam Extremities exam: Positive for: normal inspection, pedal pulses present - Back Exam Back exam: NORMAL INSPECTION - Psychiatric Exam Psychiatric exam: Anxious - Skin Skin Exam: Dry, Warm - Additional Findings Additional findings: palliative performance scale rating 50 % Results - Vital Signs Recent Vital Signs: Last Vital Signs Temp 98.2 F 06/11/17 08:23 Pulse 65 06/11/17 08:23 Resp 16 06/11/17 08:23 BP 155/73 H 06/11/17 08:23 Pulse Ox 100 06/11/17 08:23 - Labs Result Diagrams: 06/11/17 06:45 06/11/17 06:45 Labs: Laboratory Results - last 24 hr 06/11/17 06/11/17 06:45 06:45 WBC 3.7 L D RBC 4.09 Hgb 10.6 L Hct 32.5 L MCV 79.5 L MCH 25.9 MCHC 32.6 RDW 13.2 Plt Count 311 MPV 8.8 Sodium 134 Potassium 4.2 Chloride 98 Carbon Dioxide 27 Anion Gap 13 BUN 7 Creatinine 0.6 L Est GFR ( Amer) > 60 Est GFR (Non-Af Amer) > 60 Random Glucose 90 Calcium 8.7 Phosphorus 3.8 Magnesium 1.8 Total Bilirubin 0.4 AST 23 ALT 19 Alkaline Phosphatase 117 Total Protein 7.0 Albumin 3.5 Globulin 3.5 Albumin/Globulin Ratio 1.0 L Assessment & Plan - Assessment and Plan (Free Text) Assessment: 67 year old female with history of anorexia, cachexia who is admitted with with dehydration, hyponatremia and pain upon swallowing. Previous EGD, CT scans and x ray showed no obstruction, growth or causative factors for her complaints. The patient is alert, anxious Speaks some Spanish. Complaining of throat pain.States she is not making this up,that her throat hurts when she swallows food. She states she doesn't want to . States she wants help. I also spoke with patients daughter Shelby via phone. Her father was with her but does not speak Spanish so daughter interpreted our conversation. Daughter states she doesn't know why this is happening to her mother. Family did not offer much information regarding patients past behavior or medical problem. Family expressed concern over patients inability to eat and weight loss. I requested to meet with and daughter today. unable to meet with me until tomorrow morning. Intent to discuss goals of care and the possible option for PEG. Time spent in discussion with patient and family, 30 minutes. Plan: Throat discomfort: Cepacol lozenges. Cachexia/dysphagia: Swallow evaluation. Puree diet. GI consult. Evaluate for PEG ? Hyponatremia: NS 0.9% IVF's. Goals of care and advance care planning. Psychosocial support
--- NOTE | 2017-06-11 14:20 | DS ---
HISTORY OF PRESENT ILLNESS: The patient is a 67-year-old female, who came into the hospital having difficulty with throat pain. The patient has had a full evaluation by ENT and GI, no pathology was found. She has been losing weight, not eating. She has had evaluation for malignancy. The patient also had endoscopy and laryngoscopy done. She came in with hyponatremia and similar symptoms. PHYSICAL EXAMINATION: VITAL SIGNS: Temperature is 97.5, pulse is 72, blood pressure 120/56, respirations 18, O2 saturation 96%. GENERAL: The patient is lying in bed, flat, comfortable. HEENT: No oral lesion. Anicteric sclerae. Moist mucosa. NECK: No JVD, adenopathy, or thyromegaly. CARDIOVASCULAR: S1 and S2, regular. No murmurs, rubs, or gallops. LUNGS: Clear to auscultation bilaterally. No wheeze, rales, or rhonchi. ABDOMEN: Bowel sounds are positive, soft, nontender and nondistended. EXTREMITIES: No cyanosis, clubbing or edema. ASSESSMENT: 1. Hyponatremia. 2. Cachexia. 3. B12 deficiency. 4. Bed bugs. PLAN: The patient is currently on IV fluids. Now on Synthroid for hypothyroidism. Has a blood work that has been ordered. The patient is on a liquid diet. Ramy Napier MD
--- NOTE | 2017-06-11 17:41 | CP.PCM.PN ---
<Andrea Randall - Last Filed: 06/11/17 17:33> Subjective - Date & Time of Evaluation Date of Evaluation: 06/11/17 Time of Evaluation: 09:20 - Subjective Subjective: GI Progress note. Dr. Patterson Pt seen and examined at bedside. Patient still s/o pain when swallowing. Denies any N/V/D. No Abd pain. No F/C. No new complaints. Objective - Vital Signs/Intake and Output Vital Signs (last 24 hours): Temp Pulse Resp BP Pulse Ox 98.2 F 61 17 143/91 H 99 06/11/17 08:23 06/11/17 14:00 06/11/17 14:00 06/11/17 14:00 06/11/17 14:00 Intake and Output: 06/11/17 06/11/17 06:59 18:59 Intake Total 180 Output Total 1 Balance 179 - Medications Medications: Current Medications Benzocaine/Menthol (Cepacol Sore Throat) 1 umair MT Q2H PRN PRN Reason: Sore Throat Sodium Chloride (Sodium Chloride 0.9%) 1,000 mls @ 80 mls/hr IV .[id number] [facility] Stop: 06/12/17 16:14 Last Admin: 06/11/17 02:31 Dose: Not Given Levothyroxine Sodium (Synthroid) 50 mcg PO DAILY [facility] Last Admin: 06/11/17 10:16 Dose: 50 mcg Nystatin (Nystatin Oral Susp) 5 ml PO QID [facility] - Labs Labs: 06/11/17 06:45 06/11/17 06:45 PT 11.5 SECONDS (9.4-12.5) 06/09/17 09:59 INR 1.00 (0.93-1.08) 06/09/17 09:59 APTT 30.2 Seconds (25.1-36.5) 06/09/17 09:59 - Constitutional Appears: Non-toxic, No Acute Distress - Head Exam Head Exam: ATRAUMATIC, NORMAL INSPECTION, NORMOCEPHALIC - Eye Exam Eye Exam: EOMI - ENT Exam ENT Exam: Mucous Membranes Moist, Normal Exam - Cardiovascular Exam Cardiovascular Exam: RRR. absent: JVD - GI/Abdominal Exam GI & Abdominal Exam: Soft. absent: Distended, Guarding, Rigid, Tenderness, Rebound - Neurological Exam Neurological Exam: Alert, Awake Assessment and Plan - Assessment and Plan (Free Text) Assessment: 67yo F with odynophagia, cachexia. - CT scans noted - Recent EGD unremarkable Plan: - Trial of Nystatin oral suspension - Continue liquid diet - IVF Further recs as per Dr. Yesenia Randall PGY1 <Washington Patterson V - Last Filed: 06/11/17 23:52> Objective - Vital Signs/Intake and Output Vital Signs (last 24 hours): Temp Pulse Resp BP Pulse Ox 97.1 F L 51 L 16 135/61 100 06/11/17 22:39 06/11/17 22:39 06/11/17 22:39 06/11/17 22:39 06/11/17 22:39 - Medications Medications: Current Medications Benzocaine/Menthol (Cepacol Sore Throat) 1 umair MT Q2H PRN PRN Reason: Sore Throat Sodium Chloride (Sodium Chloride 0.9%) 1,000 mls @ 80 mls/hr IV .[id number] [facility] Stop: 06/12/17 16:14 Last Admin: 06/11/17 18:43 Dose: Not Given Levothyroxine Sodium (Synthroid) 50 mcg PO DAILY [facility] Last Admin: 06/11/17 10:16 Dose: 50 mcg Nystatin (Nystatin Oral Susp) 5 ml PO QID [facility] Last Admin: 06/11/17 22:25 Dose: Not Given - Labs Labs: 06/11/17 06:45 06/11/17 06:45 PT 11.5 SECONDS (9.4-12.5) 06/09/17 09:59 INR 1.00 (0.93-1.08) 06/09/17 09:59 APTT 30.2 Seconds (25.1-36.5) 06/09/17 09:59 Attending/Attestation - Attestation I have personally seen and examined this patient.: Yes I have fully participated in the care of the patient.: Yes I have reviewed all pertinent clinical information, including history, physical exam and plan: Yes Notes (Text): This is an addendum to GI progress report dictated by the Salesperson Flowers.The patient was seen and examined earlier. Medical records, lab studies, imagings were reviewed. Last 24 hours events reviewed. Agreed with the above treatment plan as outlined in Salesperson Flowers 's notes the with the addition of the following 06/11/17 23:52
[2017-06-11] MEDS: Nystatin 100,000 Units/ml Oral Susp 5 ml UD PO SCH ×3 (18:39→22:25)
[2017-06-12 07:24] LABS: HEMOGLOBIN 10.9 g/dL (12.0-16.0); MEAN CELL VOLUME 80.2 fl (80.0-105.0); MEAN CORPUSCULAR HGB CONC 32.4 g/dl (31.0-37.0); MEAN PLATELET VOLUME 8.9 fl (7.0-11.0); RBC 4.19 10^6/uL (3.5-6.1); RED CELL DISTRIBUTION WIDTH 13.4 % (11.5-14.5); WHITE BLOOD COUNT 3.6 10^3/ul (4.5-11.0)
[2017-06-12 07:42] LABS: ALBUMIN 3.7 g/dL (3.0-4.8); ALT/SGPT 18 U/L (7-56); AST/SGOT 25 U/L (14-36); BLOOD UREA NITROGEN 6 mg/dL (7-21); GFR AFRICAN-AMERICAN > 60; GFR NON-AFRICAN AMERICAN > 60
--- NOTE | 2017-06-12 07:53 | PN ---
DATE: 06/12/2017 SUBJECTIVE: The patient complains of difficulty with eating because of pain when she swallows. PHYSICAL EXAMINATION: VITAL SIGNS: Temperature is 97.1, pulse of 51, blood pressure is 135/61, respirations 16. GENERAL: The patient is lying in bed, flat, comfortable. HEENT: No oral lesion. Anicteric sclerae. Moist mucosa. NECK: No JVD, adenopathy, or thyromegaly. CARDIOVASCULAR: S1 and S2, regular. No murmurs, rubs, or gallops. LUNGS: Clear to auscultation bilaterally. No wheeze, rales, or rhonchi. ABDOMEN: Bowel sounds are positive, soft, nontender and nondistended. EXTREMITIES: No cyanosis, clubbing or edema. ASSESSMENT: 1. Odynophagia. 2. Hyponatremia, improved. 3. Cachexia. 4. B12 deficiency. 5. Bedbugs. PLAN: The patient currently uncomfortable. She continues to complain of difficulty in swallowing. I did speak with Gregoria Watson from palliative care. We had a discussion about PEG placement, although the patient does not have the usual indications that would warrant PEG placement. She has difficulty in swallowing and eating, even though we have had multiple evaluations done for her swallowing issues, which have been negative, I think something that we will need to entertain. I will speak to Dr. Patterson about this. Gregoria Watson has spoken to the family. The patient has been started on nystatin empirically for treatment for fungal esophagitis. The patient is on Synthroid for hypothyroidism. She is on IV fluids with normal saline. The patient does not wish to stop normal saline and I believe that this is helping her feel better. She is currently on a liquid diet. Ramy Napier MD
[2017-06-12] MEDS: Levothyroxine 50 MCG TAB PO SCH (09:14)
[2017-06-12] MEDS: Sodium Chloride 0.9% 1,000 ML IV SCH ×2 (09:14→22:43)
[2017-06-12] MEDS: Nystatin 100,000 Units/ml Oral Susp 5 ml UD PO SCH ×5 (09:14→22:54)
[2017-06-12] MEDS: Benzocaine/Menthol (Cepacol) Lozenge MT PRN ×2 (09:14→22:44)
--- NOTE | 2017-06-12 11:59 | CP.PCM.PN ---
Subjective - Date & Time of Evaluation Date of Evaluation: 06/12/17 Time of Evaluation: 13:40 - Subjective Subjective: GI Progress note. Dr. Patterson Pt seen and examined at bedside. No acute events overnight. No N/V/D. No Abd pain. No F/C. Does report some improvement with nystatin oral suspension but still reports that she cannot eat due to pain. No new complaints. Objective - Vital Signs/Intake and Output Vital Signs (last 24 hours): Temp Pulse Resp BP Pulse Ox 97.9 F 50 L 18 110/68 100 06/12/17 08:11 06/12/17 08:11 06/12/17 08:11 06/12/17 08:11 06/12/17 08:11 Intake and Output: 06/12/17 06/12/17 06:59 18:59 Intake Total 540 Balance 540 - Medications Medications: Current Medications Benzocaine/Menthol (Cepacol Sore Throat) 1 umair MT Q2H PRN PRN Reason: Sore Throat Last Admin: 06/12/17 09:14 Dose: 1 umair Sodium Chloride (Sodium Chloride 0.9%) 1,000 mls @ 50 mls/hr IV .Q20H [facility] Stop: 06/13/17 22:14 Last Admin: 06/12/17 09:14 Dose: Not Given Levothyroxine Sodium (Synthroid) 50 mcg PO DAILY [facility] Last Admin: 06/12/17 09:14 Dose: 50 mcg Nystatin (Nystatin Oral Susp) 5 ml PO QID [facility] Last Admin: 06/12/17 09:14 Dose: 5 ml - Labs Labs: 06/12/17 07:00 06/12/17 07:00 PT 11.5 SECONDS (9.4-12.5) 06/09/17 09:59 INR 1.00 (0.93-1.08) 06/09/17 09:59 APTT 30.2 Seconds (25.1-36.5) 06/09/17 09:59 - Constitutional Appears: Non-toxic, No Acute Distress, Older Than Stated Age, Chronically Ill - Head Exam Head Exam: ATRAUMATIC, NORMAL INSPECTION, NORMOCEPHALIC - Eye Exam Eye Exam: EOMI, Normal appearance - ENT Exam ENT Exam: Mucous Membranes Moist - Respiratory Exam Respiratory Exam: NORMAL BREATHING PATTERN. absent: Accessory Muscle Use, Respiratory Distress - Cardiovascular Exam Cardiovascular Exam: RRR. absent: JVD - GI/Abdominal Exam GI & Abdominal Exam: Soft. absent: Distended, Firm, Guarding, Rigid, Rebound - Extremities Exam Extremities Exam: Normal Inspection. absent: Calf Tenderness - Neurological Exam Neurological Exam: Alert, Awake, Oriented x3 - Skin Skin Exam: Dry, Intact, Normal Color, Warm Assessment and Plan - Assessment and Plan (Free Text) Assessment: 67yo F with odynophagia, cachexia. - Recent EGD unremarkable - No discernable pathology apparent on CT scans to explain symptoms Plan: - To Endo tomorrow, 06/13, for possible PEG tube. Family discussion to be held today with risks and benefits of procedure to be discussed. Will proceed with PEG if family and patient agree and elect to move forward with the procedure - NPO past mn - Continue IVF - On contact precautions 2/2 bed bugs Further recs as per Dr. Yesenia Randall PGY1
--- NOTE | 2017-06-12 13:41 | CP.PCM.PN ---
Subjective - Date & Time of Evaluation Date of Evaluation: 06/12/17 Time of Evaluation: 10:30 - Subjective Subjective: Alert, oriented. Complains of throat discomfort. Objective - Vital Signs/Intake and Output Vital Signs (last 24 hours): Temp Pulse Resp BP Pulse Ox 97.9 F 50 L 18 110/68 100 06/12/17 08:11 06/12/17 08:11 06/12/17 08:11 06/12/17 08:11 06/12/17 08:11 Intake and Output: 06/12/17 06/12/17 06:59 18:59 Intake Total 540 Balance 540 - Medications Medications: Current Medications Benzocaine/Menthol (Cepacol Sore Throat) 1 umair MT Q2H PRN PRN Reason: Sore Throat Last Admin: 06/12/17 09:14 Dose: 1 umair Sodium Chloride (Sodium Chloride 0.9%) 1,000 mls @ 50 mls/hr IV .Q20H [facility] Stop: 06/13/17 22:14 Last Admin: 06/12/17 09:14 Dose: Not Given Levothyroxine Sodium (Synthroid) 50 mcg PO DAILY [facility] Last Admin: 06/12/17 09:14 Dose: 50 mcg Nystatin (Nystatin Oral Susp) 5 ml PO QID [facility] Last Admin: 06/12/17 09:14 Dose: 5 ml - Labs Labs: 06/12/17 07:00 06/12/17 07:00 PT 11.5 SECONDS (9.4-12.5) 06/09/17 09:59 INR 1.00 (0.93-1.08) 06/09/17 09:59 APTT 30.2 Seconds (25.1-36.5) 06/09/17 09:59 - Constitutional Appears: Cachectic, Chronically Ill - Eye Exam Eye Exam: Normal appearance, PERRL - ENT Exam ENT Exam: Mucous Membranes Moist - Respiratory Exam Respiratory Exam: Clear to Ausculation Bilateral, NORMAL BREATHING PATTERN - Cardiovascular Exam Cardiovascular Exam: REGULAR RHYTHM, +S1, +S2 - GI/Abdominal Exam GI & Abdominal Exam: Soft, Normal Bowel Sounds - Extremities Exam Extremities Exam: Normal Capillary Refill, Normal Inspection - Back Exam Back Exam: NORMAL INSPECTION - Neurological Exam Neurological Exam: Alert - Psychiatric Exam Psychiatric exam: Anxious - Skin Skin Exam: Dry, Pallor Assessment and Plan - Assessment and Plan (Free Text) Assessment: 67 year old female with history of HTN, DM, anorexia, cachexia who was admitted with dehydration,hyponatremia throat pain, cachexia and difficulty swallowing. I met with patient and her . Both speak Polish, language interpreting device used. maintains that she is hungry but can not swallow food as it is painful. has very poor dentation with multiple loose teeth. has not gone to dentist because she has no dental coverage and can not afford the cost. Option for PEG placement discussed. Benefits and burdens of PEG explained. Questions answered. Patients expressed concern over the cost of enteral feedings. Explained that SW would look into coverage for feeding and that family may apply for assistance to individual manufacturers of enteral feeding product. Also discussed transitioning to rehab for assistance with deconditioning and PEG feedings. and agreeable to trying PEG also agree with [facility] after PEG placement. Time spent with patient and in goals of care discussion, 45 minutes Plan: Goals of care and advance care planning. PEG discussed with Dr. Prashanth Napier and Dr. Cisco Patterson. PEG placement scheduled for tomorrow. SW for assistance with coverage of enteral feedings and [facility] referral
[2017-06-13] MEDS: Nystatin 100,000 Units/ml Oral Susp 5 ml UD PO SCH ×4 (09:19→22:13)
[2017-06-13] MEDS: Levothyroxine 50 MCG TAB PO SCH (09:19)
--- NOTE | 2017-06-13 09:37 | PN ---
DATE: 06/13/2017 ` SUBJECTIVE: The patient has no complaints of any chest pain. No shortness of breath. No headaches. PHYSICAL EXAMINATION: VITAL SIGNS: Temperature is 97.8, pulse of 64, blood pressure is 136/61, respirations 18. GENERAL: The patient is lying in bed, flat, comfortable. HEENT: No oral lesion. Anicteric sclerae. Moist mucosa. NECK: No JVD, adenopathy, or thyromegaly. CARDIOVASCULAR: S1 and S2, regular. No murmurs, rubs, or gallops. LUNGS: Clear to auscultation bilaterally. No wheeze, rales, or rhonchi. ABDOMEN: Bowel sounds are positive, soft, nontender and nondistended. EXTREMITIES: no cyanosis, clubbing or edema. LABORATORY DATA: White count is 3.6, hemoglobin 10.9. Creatinine 0.6. ASSESSMENT: 1. Odynophagia. 2. Hyponatremia, improved. 3. Cachexia. 4. B12 deficiency. 5. Bed bugs. PLAN: The patient is currently comfortable. She is on IV fluids. She is on Synthroid for hypothyroidism. The patient is going to be on nystatin. She is currently n.p.o. and going for a PEG placement today. The patient may shower. Ramy Napier MD
[2017-06-13] MEDS ORDERED: Midazolam 2 MG/2 ML VIAL ONE (16:26)
[2017-06-13] MEDS ORDERED: Propofol 10 mg/ml Inj (20 ML) ONE (16:26)
[2017-06-13] MEDS ORDERED: Etomidate 20 mg/10ml Inj IV ONE (16:26)
[2017-06-13] MEDS ORDERED: CeFAZolin 1 gm in NS 100ml IVPB ONE (16:45)
[2017-06-13] MEDS: Sodium Chloride 0.9% 1,000 ML IV SCH (18:17)
[2017-06-13] MEDS: Benzocaine/Menthol (Cepacol) Lozenge MT PRN (18:18)
[2017-06-14] MEDS: Nystatin 100,000 Units/ml Oral Susp 5 ml UD PO SCH ×4 (04:35→21:58)
[2017-06-14] MEDS: Sodium Chloride 0.9% 1,000 ML IV SCH ×2 (05:59→07:07)
[2017-06-14] MEDS: Levothyroxine 50 MCG TAB PO SCH (11:26)
[2017-06-14 17:25] LABS: BETA-HYDROXYBUTYRIC ACID None Detected
--- NOTE | 2017-06-14 18:04 | CP.PCM.PN ---
Subjective - Date & Time of Evaluation Date of Evaluation: 06/14/17 Time of Evaluation: 11:35 - Subjective Subjective: Seen and examined at the bedside earlier today, chart review. Status post PEG insertion yesterday. No acute overnight events reported. Patient denies nausea , vomiting, or abdominal pain. Remains on contact isolation. No reports of overt GI bleed. Objective - Vital Signs/Intake and Output Vital Signs (last 24 hours): Temp Pulse Resp BP Pulse Ox 98.4 F 88 20 124/79 100 06/14/17 14:00 06/14/17 14:00 06/14/17 14:00 06/14/17 14:00 06/14/17 14:00 Intake and Output: 06/14/17 06/14/17 06:59 18:59 Intake Total 500 Balance 500 - Medications Medications: Current Medications Benzocaine/Menthol (Cepacol Sore Throat) 1 umair MT Q2H PRN PRN Reason: Sore Throat Last Admin: 06/13/17 18:18 Dose: 1 umair Sodium Chloride (Sodium Chloride 0.9%) 1,000 mls @ 50 mls/hr IV .Q20H [facility] Last Admin: 06/14/17 07:07 Dose: 50 mls/hr Levothyroxine Sodium (Synthroid) 50 mcg PO DAILY [facility] Last Admin: 06/14/17 11:26 Dose: Not Given Nystatin (Nystatin Oral Susp) 5 ml PO QID [facility] Last Admin: 06/14/17 11:26 Dose: Not Given - Labs Labs: 06/12/17 07:00 06/12/17 07:00 PT 11.5 SECONDS (9.4-12.5) 06/09/17 09:59 INR 1.00 (0.93-1.08) 06/09/17 09:59 APTT 30.2 Seconds (25.1-36.5) 06/09/17 09:59 - Constitutional Appears: No Acute Distress, Cachectic - Head Exam Head Exam: NORMOCEPHALIC - Eye Exam Eye Exam: Normal appearance. absent: Scleral icterus - ENT Exam ENT Exam: Mucous Membranes Moist - Neck Exam Neck Exam: Normal Inspection - Respiratory Exam Respiratory Exam: NORMAL BREATHING PATTERN. absent: Respiratory Distress - Cardiovascular Exam Cardiovascular Exam: +S1, +S2 - GI/Abdominal Exam GI & Abdominal Exam: Soft, Normal Bowel Sounds. absent: Guarding, Tenderness, Rebound Additional comments: positive PEG in place, no erythema, dried old noted blood around insertion no new bleeding.site nontender - Extremities Exam Extremities Exam: absent: Calf Tenderness, Pedal Edema - Neurological Exam Neurological Exam: Alert, Awake, Oriented x3 Assessment and Plan - Assessment and Plan (Free Text) Assessment: Assessment: Odynophagia Cachexia Status post EGD for PEG insertion Plan: May use PEG, start bolus feedings at least 2-3 cans, see orders. Flush in between bolus feeding. Hold feedings when patient is taking oral intake. Continue IV F On nystatin If patient tolerates bolus feedings consider starting oral intake in a.m. Seen and discussed with Dr. Patterson.
--- NOTE | 2017-06-15 05:56 | DS ---
HISTORY OF PRESENT ILLNESS: This is a 67-year-old female who came into this hospital. She has been having pain when she swallows. She had a swallow evaluation that has been negative. Decision was made to place a PEG tube for added nutrition and calories and comfort. The patient is going to be going to subacute rehab. She had witnessed , and so she was placed on contact isolation and allowed to shower and clean. The patient is comfortable. PHYSICAL EXAMINATION: VITAL SIGNS: Temperature is 97.8, pulse of 58, blood pressure 137/65, respirations 20. GENERAL: The patient is lying in bed, flat, comfortable. HEENT: No oral lesion. Anicteric sclerae. Moist mucosa. NECK: No JVD, adenopathy, or thyromegaly. CARDIOVASCULAR: S1 and S2, regular. No murmurs, rubs, or gallops. LUNGS: Clear to auscultation bilaterally. No wheeze, rales, or rhonchi. ABDOMEN: Bowel sounds are positive, soft, nontender and nondistended. EXTREMITIES: No cyanosis, clubbing or edema. LABORATORY DATA: Creatinine is 0.6. ASSESSMENT: 1. Status post percutaneous endoscopic gastrostomy placement. 2. Hyponatremia, improved. 3. Cachexia. 4. B12 deficiency. 5. Bed bugs. PLAN: The patient is currently on IV fluids. She is going to be on nystatin. She is on Synthroid for hypothyroidism. She is getting oxygen as needed. CONDITION: Stable. ACTIVITIES: Increase as tolerated. Ramy Napier MD
[2017-06-15] MEDS: Nystatin 100,000 Units/ml Oral Susp 5 ml UD PO SCH ×5 (09:59→23:07)
[2017-06-15] MEDS: Levothyroxine 50 MCG TAB PO SCH ×2 (09:59→10:01)
[2017-06-15] MEDS: Sodium Chloride 0.9% 1,000 ML IV SCH ×2 (10:09→23:07)
--- NOTE | 2017-06-15 12:18 | PN ---
DATE: 06/15/2017 SUBJECTIVE: The patient has no complaints of any chest pain. No shortness of breath. No headaches. PHYSICAL EXAMINATION: VITAL SIGNS: Temperature is 98.4, pulse of 88, blood pressure 124/79, respirations 20. GENERAL: The patient is lying in bed, flat, comfortable. HEENT: No oral lesion. Anicteric sclerae. Moist mucosa. NECK: No JVD, adenopathy, or thyromegaly. CARDIOVASCULAR: S1 and S2, regular. No murmurs, rubs, or gallops. LUNGS: Clear to auscultation bilaterally. No wheeze, rales, or rhonchi. ABDOMEN: Bowel sounds are positive, soft, nontender and nondistended. EXTREMITIES: No cyanosis, clubbing or edema. LABORATORY DATA: White count is 3.6, hemoglobin 10.9, creatinine 0.6. ASSESSMENT: 1. Status post percutaneous endoscopic gastrostomy placement. 2. Hyponatremia, resolved. 3. Cachexia. 4. B12 deficiency. 5. Frailty. 6. . PLAN: The patient had PEG placement for nutrition. She had bolus feedings, now started with flushes of free water. The patient is on IV fluids. She is receiving Synthroid for hypothyroidism and she . She is waiting for to a subacute rehab facility. I spoke with protective services social worker and the patient's family to explain for the feedings. Ramy Napier MD
--- NOTE | 2017-06-15 16:21 | CP.PCM.PN ---
Subjective - Date & Time of Evaluation Date of Evaluation: 06/15/17 Time of Evaluation: 11:10 - Subjective Subjective: Seen and examined at the bedside earlier today, chart review. Patient reported to tolerate 2 cans of bolus feedings of Jevity yesterday and one this morning. No acute overnight events reported. Patient denies nausea, vomiting, no reports of overt GI bleed. Patient had some mild abdominal upper abdominal tenderness. Objective - Vital Signs/Intake and Output Vital Signs (last 24 hours): Temp Pulse Resp BP Pulse Ox 98.3 F 54 L 18 112/57 L 99 06/15/17 07:00 06/15/17 07:00 06/15/17 07:00 06/15/17 07:00 06/15/17 07:00 Intake and Output: 06/15/17 06/15/17 06:59 18:59 Intake Total 0 Output Total 725 Balance -725 - Medications Medications: Current Medications Benzocaine/Menthol (Cepacol Sore Throat) 1 umair MT Q2H PRN PRN Reason: Sore Throat Last Admin: 06/13/17 18:18 Dose: 1 umair Sodium Chloride (Sodium Chloride 0.9%) 1,000 mls @ 50 mls/hr IV .Q20H [facility] Last Admin: 06/15/17 10:09 Dose: 50 mls/hr Levothyroxine Sodium (Synthroid) 50 mcg PO DAILY [facility] Last Admin: 06/15/17 10:01 Dose: 50 mcg Nystatin (Nystatin Oral Susp) 5 ml PO QID [facility] Last Admin: 06/15/17 13:30 Dose: Not Given - Labs Labs: 06/12/17 07:00 06/12/17 07:00 PT 11.5 SECONDS (9.4-12.5) 06/09/17 09:59 INR 1.00 (0.93-1.08) 06/09/17 09:59 APTT 30.2 Seconds (25.1-36.5) 06/09/17 09:59 - Constitutional Appears: No Acute Distress, Cachectic - Head Exam Head Exam: NORMOCEPHALIC - Eye Exam Eye Exam: Normal appearance. absent: Scleral icterus - ENT Exam ENT Exam: Mucous Membranes Moist Additional comments: poor dentition - Respiratory Exam Respiratory Exam: NORMAL BREATHING PATTERN. absent: Respiratory Distress - Cardiovascular Exam Cardiovascular Exam: +S1, +S2 - GI/Abdominal Exam GI & Abdominal Exam: Soft, Tenderness (mid abdomen, PEG site intact , no discharge, attempt to adjust bolster ), Normal Bowel Sounds. absent: Guarding, Organomegaly, Rebound - Extremities Exam Extremities Exam: absent: Calf Tenderness, Pedal Edema - Neurological Exam Neurological Exam: Alert, Awake, Oriented x3 - Skin Skin Exam: Dry, Warm Assessment and Plan - Assessment and Plan (Free Text) Assessment: Assessment: Odynophagia Cachexia Status post EGD for PEG insertion Plan: On IVF On nystatin Start patient on pured diet, discussed with BALJIT Echevarria patient is not to receive oral intake with bolus feedings. Bolus feeding is when necessary if patient does not tolerate a scheduled meal. This has been discussed with patient and family, spoke to BALJIT Echevarria to reiterate this information to family. Will requests dietitian evaluation for oral and bolus feeding caloric intake. Seen and discussed with Dr. Patterson.
[2017-06-16] MEDS: Nystatin 100,000 Units/ml Oral Susp 5 ml UD PO SCH ×4 (10:00→21:38)
[2017-06-16] MEDS: Levothyroxine 50 MCG TAB PO SCH (10:00)
--- NOTE | 2017-06-16 11:05 | PN ---
DATE: 06/16/2017 SUBJECTIVE: The patient has no complaints of any chest pain. No shortness of breath. No headaches. No dizziness. PHYSICAL EXAMINATION: VITAL SIGNS: Temperature is 98, pulse is 60, blood pressure 120/60, respirations 18. GENERAL: The patient is lying in bed, flat, comfortable. HEENT: No oral lesion. Anicteric sclerae. Moist mucosa. NECK: No JVD, adenopathy, or thyromegaly. CARDIOVASCULAR: S1 and S2, regular. No murmurs, rubs, or gallops. LUNGS: Clear to auscultation bilaterally. No wheeze, rales, or rhonchi. ABDOMEN: Bowel sounds are positive, soft, nontender and nondistended. EXTREMITIES: No cyanosis, clubbing or edema. LABORATORY DATA: White count of 3.6, hemoglobin 10.9, creatinine is 0.6. ASSESSMENT: 1. Status post percutaneous endoscopic gastrostomy placement. 2. Hyponatremia, resolved. 3. Cachexia. 4. Hypothyroidism. 5. B12 deficiency. 6. Frailty. PLAN: The patient is currently comfortable. The patient is on IV fluids. I will discontinue the patient's IV fluids at this point. She is getting tube feedings with water boluses. She is on Jevity 1.2. She is waiting for subacute rehab. Ramy Napier MD
--- NOTE | 2017-06-16 15:06 | CP.PCM.PN ---
Subjective - Date & Time of Evaluation Date of Evaluation: 06/16/17 Time of Evaluation: 08:40 - Subjective Subjective: Seen and examined at the bedside earlier this morning. Patient tolerated over 70% of her breakfast. No reports of nausea, vomiting, or abdominal pain. Patient reported having a large bowel movement yesterday. No reports of overt GI bleeding. Objective - Vital Signs/Intake and Output Vital Signs (last 24 hours): Temp Pulse Resp BP Pulse Ox 98.2 F 59 L 18 107/56 L 99 06/16/17 06:00 06/16/17 06:00 06/16/17 06:00 06/16/17 06:00 06/16/17 06:00 Intake and Output: 06/16/17 06/16/17 06:59 18:59 Intake Total 1820 Balance 1820 - Medications Medications: Current Medications Benzocaine/Menthol (Cepacol Sore Throat) 1 umair MT Q2H PRN PRN Reason: Sore Throat Last Admin: 06/13/17 18:18 Dose: 1 umair Levothyroxine Sodium (Synthroid) 50 mcg PO DAILY [facility] Last Admin: 06/15/17 10:01 Dose: 50 mcg Nystatin (Nystatin Oral Susp) 5 ml PO QID [facility] Last Admin: 06/15/17 23:07 Dose: Not Given - Labs Labs: 06/12/17 07:00 06/12/17 07:00 PT 11.5 SECONDS (9.4-12.5) 06/09/17 09:59 INR 1.00 (0.93-1.08) 06/09/17 09:59 APTT 30.2 Seconds (25.1-36.5) 06/09/17 09:59 - Constitutional Appears: No Acute Distress, Cachectic - Eye Exam Eye Exam: Normal appearance. absent: Scleral icterus - ENT Exam ENT Exam: Mucous Membranes Moist - Neck Exam Neck Exam: Normal Inspection - Respiratory Exam Respiratory Exam: NORMAL BREATHING PATTERN. absent: Respiratory Distress - Cardiovascular Exam Cardiovascular Exam: +S1, +S2 - GI/Abdominal Exam GI & Abdominal Exam: Soft, Normal Bowel Sounds. absent: Guarding, Tenderness, Rebound Additional comments: PEG in place , insertion site is dry, no discharge. - Extremities Exam Extremities Exam: absent: Calf Tenderness, Pedal Edema - Neurological Exam Neurological Exam: Alert, Awake, Oriented x3 - Skin Skin Exam: Dry, Warm Assessment and Plan - Assessment and Plan (Free Text) Assessment: Assessment: Odynophagia Cachexia Status post EGD for PEG insertion Plan: On nystatin continue puree diet as tolerated, Bolus feedings ONLY if patient DOES NOT eat scheduled meal. Appreciate dietary recommendations Case discussed w/ Dr. Bates covering Dr. Patterson.
--- NOTE | 2017-06-16 16:01 | PN ---
DATE: 06/16/2017 Dr. Bates covering for Dr. Patterson. SUBJECTIVE: I personally examined this patient. I agree with IKER Malhotra's assessment and recommendations. The patient's PEG site looks clean without drainage. We will give the patient PEG feeding to supplement her p.o. intake. Her p.o. intake is poor. Gio Bates MD
--- NOTE | 2017-06-17 08:36 | PN ---
DATE: 06/17/2017 SUBJECTIVE: The patient has no complaints of any chest pain, shortness of breath. No headaches. She has been eating. PHYSICAL EXAMINATION: VITAL SIGNS: Temperature is 98.2, pulse of 57, blood pressure is 149/71, respirations 18. GENERAL: The patient is lying in bed, flat, comfortable. HEENT: No oral lesion. Anicteric sclerae. Moist mucosa. NECK: No JVD, adenopathy, or thyromegaly. CARDIOVASCULAR: S1 and S2, regular. No murmurs, rubs, or gallops. LUNGS: Clear to auscultation bilaterally. No wheeze, rales, or rhonchi. ABDOMEN: Bowel sounds are positive, soft, nontender and nondistended. EXTREMITIES: No cyanosis, clubbing or edema. LABORATORY DATA: White count of 3.6, hemoglobin 10.9. Creatinine 0.6. ASSESSMENT: 1. Status post percutaneous endoscopic gastrostomy. 2. Hyponatremia, resolved. 3. Cachexia. 4. Hypothyroidism. 5. B12 deficiency. 6. Frailty. PLAN: The patient is going to continue with Synthroid for hypothyroidism. She is on her statin. She is on dysphagia modified diet. She is also on Jevity for her PEG feedings. She is waiting for discharge to a subacute rehab facility. She is no longer on contact isolation. Ramy Napier MD
[2017-06-17] MEDS: Nystatin 100,000 Units/ml Oral Susp 5 ml UD PO SCH ×3 (09:58→17:38)
[2017-06-17] MEDS: Levothyroxine 50 MCG TAB PO SCH ×2 (09:58→14:45)
[2017-06-18 06:59] LABS: HEMOGLOBIN 8.9 g/dL (12.0-16.0); MEAN CELL VOLUME 83.5 fl (80.0-105.0); MEAN CORPUSCULAR HEMOGLOBIN 26.3 pg (25.0-35.0); MEAN CORPUSCULAR HGB CONC 31.4 g/dl (31.0-37.0); MEAN PLATELET VOLUME 9.4 fl (7.0-11.0); RBC 3.39 10^6/uL (3.5-6.1); RED CELL DISTRIBUTION WIDTH 14.4 % (11.5-14.5); WHITE BLOOD COUNT 5.5 10^3/ul (4.5-11.0)
[2017-06-18 07:12] LABS: ALB/GLOB RATIO 0.9 (1.1-1.8); ALT/SGPT 16 U/L (7-56); AST/SGOT 20 U/L (14-36); BLOOD UREA NITROGEN 20 mg/dL (7-21); CALCIUM 8.6 mg/dL (8.4-10.5); GFR AFRICAN-AMERICAN > 60; GFR NON-AFRICAN AMERICAN > 60
[2017-06-18] MEDS: Nystatin 100,000 Units/ml Oral Susp 5 ml UD PO SCH ×2 (10:57→14:44)
[2017-06-18] MEDS: Levothyroxine 50 MCG TAB PO SCH (10:57)
--- NOTE | 2017-06-18 14:22 | PN ---
DATE: 06/18/2017 SUBJECTIVE: The patient has no complaints of any chest pain, no shortness of breath, no headaches. She still says that she has pain when she swallows. She is advised to use a PEG if that happens, but she still continues to eat. PHYSICAL EXAMINATION VITAL SIGNS: Temperature is 97.8, pulse of 59, blood pressure is 110/59, respirations 18. GENERAL: The patient is lying in bed, flat, comfortable. HEENT: No oral lesion. Anicteric sclerae. Moist mucosa. NECK: No JVD, adenopathy, or thyromegaly. CARDIOVASCULAR: S1 and S2, regular. No murmurs, rubs, or gallops. LUNGS: Clear to auscultation bilaterally. No wheeze, rales, or rhonchi. ABDOMEN: Bowel sounds are positive, soft, nontender and nondistended. EXTREMITIES: No cyanosis, clubbing or edema. LABORATORY DATA: Hemoglobin is 8.9. ASSESSMENT: 1. Odynophagia. 2. Status post percutaneous endoscopic gastrostomy. 3. Hyponatremia, resolved. 4. Cachexia. 5. Hypothyroidism. 6. B12 deficiency. 7. Frailty. PLAN: The patient had an episode yesterday where she was closing her eyes and not opening them on purpose. She was getting stimulation, but she is still not able to follow commands to verbal or tactile stimuli. The patient is on Synthroid for hypothyroidism. The patient is waiting to go to subacute rehab facility. Family will need to learn about giving feedings. Ramy Napier MD
--- NOTE | 2017-06-18 16:54 | CP.PCM.PN ---
Subjective - Date & Time of Evaluation Date of Evaluation: 06/18/17 Time of Evaluation: 10:50 - Subjective Subjective: Seen and examined at the bedside earlier today, chart was reviewed. No acute overnight events reported. Patient was reported not to eat lunch [place] day and so bolus of Jevity was given. Patient noted to have decreasing hemoglobin no reports of overt GI bleed. Patient denies nausea, vomiting, or abdominal pain. Patient did eat breakfast this morning. Objective - Vital Signs/Intake and Output Vital Signs (last 24 hours): Temp Pulse Resp BP Pulse Ox 98.4 F 63 18 140/80 96 06/18/17 14:00 06/18/17 14:00 06/18/17 14:00 06/18/17 14:00 06/18/17 14:00 Intake and Output: 06/18/17 06/18/17 06:59 18:59 Intake Total 900 Balance 900 - Medications Medications: Current Medications Benzocaine/Menthol (Cepacol Sore Throat) 1 umair MT Q2H PRN PRN Reason: Sore Throat Last Admin: 06/13/17 18:18 Dose: 1 umair Levothyroxine Sodium (Synthroid) 50 mcg PO DAILY [facility] Last Admin: 06/18/17 10:57 Dose: 50 mcg Nystatin (Nystatin Oral Susp) 5 ml PO QID [facility] Last Admin: 06/18/17 14:44 Dose: Not Given - Labs Labs: 06/18/17 06:15 06/18/17 06:15 PT 11.5 SECONDS (9.4-12.5) 06/09/17 09:59 INR 1.00 (0.93-1.08) 06/09/17 09:59 APTT 30.2 Seconds (25.1-36.5) 06/09/17 09:59 - Constitutional Appears: No Acute Distress - Eye Exam Eye Exam: Normal appearance. absent: Scleral icterus - ENT Exam ENT Exam: Mucous Membranes Moist - Neck Exam Neck Exam: Normal Inspection - Respiratory Exam Respiratory Exam: NORMAL BREATHING PATTERN. absent: Respiratory Distress - Cardiovascular Exam Cardiovascular Exam: +S1, +S2 - GI/Abdominal Exam GI & Abdominal Exam: Soft, Normal Bowel Sounds. absent: Guarding, Tenderness, Rebound Additional comments: PEG in place, insertion site is dry and intact no erythema or bleeding, abdomen nontender - Extremities Exam Extremities Exam: absent: Calf Tenderness, Pedal Edema - Neurological Exam Neurological Exam: Alert, Awake, Oriented x3 - Skin Skin Exam: Dry, Warm Assessment and Plan - Assessment and Plan (Free Text) Assessment: Assessment: Odynophagia Cachexia Status post EGD for PEG insertion Anemia, drop in blood count, no obvious GI bleeding, recent egd negative Plan: On nystatin continue puree diet as tolerated, Bolus feedings ONLY if patient DOES NOT eat scheduled meal. flush PEG Q shift, discuss w/ nurse at bedside. CBC in am Awaiting subacute placement Seen and discussed w/ Dr. Patterson.
[2017-06-19] MEDS: Nystatin 100,000 Units/ml Oral Susp 5 ml UD PO SCH ×5 (00:25→21:29)
[2017-06-19] MEDS: Benzocaine/Menthol (Cepacol) Lozenge MT PRN ×3 (00:25→09:45)
[2017-06-19 07:35] LABS: BASO # 0.02 K/mm3 (0.0-2.0); BASO % 0.5 % (0.0-3.0); EOS # 0.1 (0.0-0.7); EOS % 1.3 % (1.5-5.0); GRAN # 2.27 (1.4-6.5); GRAN % 57.3 % (50.0-68.0); HEMOGLOBIN 9.4 g/dL (12.0-16.0); LYMPH # 1.3 (1.2-3.4); LYMPH % 32.3 % (22.0-35.0); MEAN CELL VOLUME 82.5 fl (80.0-105.0); MEAN CORPUSCULAR HGB CONC 31.5 g/dl (31.0-37.0); MEAN PLATELET VOLUME 9.7 fl (7.0-11.0); MONO # 0.3 (0.1-0.6); MONO % 8.6 % (1.0-6.0); RBC 3.61 10^6/uL (3.5-6.1); RED CELL DISTRIBUTION WIDTH 14.2 % (11.5-14.5)
--- NOTE | 2017-06-19 07:44 | PN ---
DATE: 06/19/2017 SUBJECTIVE: The patient has no complaints of any chest pain, no shortness of breath, no headaches or dizziness. PHYSICAL EXAMINATION VITAL SIGNS: Temperature is 97.8, pulse of 58, blood pressure is 107/59, respirations 16. GENERAL: The patient is lying in bed, flat, comfortable. HEENT: No oral lesion. Anicteric sclerae. Moist mucosa. NECK: No JVD, adenopathy, or thyromegaly. CARDIOVASCULAR: S1 and S2, regular. No murmurs, rubs, or gallops. LUNGS: Clear to auscultation bilaterally. No wheeze, rales, or rhonchi. ABDOMEN: Bowel sounds are positive, soft, nontender and nondistended. EXTREMITIES: No cyanosis, clubbing or edema. LABORATORY DATA: White count of 5.5, hemoglobin 8.9, creatinine 0.7. ASSESSMENT: 1. Odynophagia. 2. Status post percutaneous endoscopic gastrostomy. 3. Hyponatremia, resolved. 4. Cachexia. 5. Hypothyroidism. 6. B12 deficiency. 7. Frailty. PLAN: The patient is currently comfortable. She is tolerating her diet. She is on Synthroid for hypothyroidism. The patient is on nystatin that is normally low. Awaiting for placement to a subacute rehab facility. Ramy Napier MD
[2017-06-19 08:13] VITALS: RESP 18
[2017-06-19] MEDS: Levothyroxine 50 MCG TAB PO SCH (09:45)
[2017-06-19] MEDS ORDERED: POLYETHYLENE GLYCOL 3350 17 GM/Dose PACKET PO ONE (13:19)
--- NOTE | 2017-06-19 13:19 | CP.PCM.PN ---
Subjective - Date & Time of Evaluation Date of Evaluation: 06/19/17 Time of Evaluation: 11:15 - Subjective Subjective: Seen and examined at the bedside earlier today, chart review. Patient reported to be tolerating oral intake. No recent boluses reported via PEG tube. Patient denies nausea, vomiting, or abdominal pain. Last BM was Sunday. PEG tube bolster adjusted and site cleansed. Objective - Vital Signs/Intake and Output Vital Signs (last 24 hours): Temp Pulse Resp BP Pulse Ox 97.7 F 53 L 18 118/64 99 06/19/17 06:00 06/19/17 06:00 06/19/17 06:00 06/19/17 06:00 06/19/17 06:00 Intake and Output: 06/19/17 06/19/17 06:59 18:59 Intake Total 480 Balance 480 - Medications Medications: Current Medications Benzocaine/Menthol (Cepacol Sore Throat) 1 umair MT Q2H PRN PRN Reason: Sore Throat Last Admin: 06/19/17 09:45 Dose: 1 umair Levothyroxine Sodium (Synthroid) 50 mcg PO DAILY [facility] Last Admin: 06/19/17 09:45 Dose: 50 mcg Nystatin (Nystatin Oral Susp) 5 ml PO QID [facility] Last Admin: 06/19/17 09:50 Dose: Not Given - Labs Labs: 06/19/17 07:00 06/18/17 06:15 PT 11.5 SECONDS (9.4-12.5) 06/09/17 09:59 INR 1.00 (0.93-1.08) 06/09/17 09:59 APTT 30.2 Seconds (25.1-36.5) 06/09/17 09:59 - Constitutional Appears: No Acute Distress - Head Exam Head Exam: NORMOCEPHALIC - Eye Exam Eye Exam: Normal appearance. absent: Scleral icterus - ENT Exam ENT Exam: Mucous Membranes Moist - Neck Exam Neck Exam: Normal Inspection - Respiratory Exam Respiratory Exam: NORMAL BREATHING PATTERN. absent: Respiratory Distress - Cardiovascular Exam Cardiovascular Exam: +S1, +S2 - GI/Abdominal Exam GI & Abdominal Exam: Soft, Normal Bowel Sounds. absent: Guarding, Tenderness, Rebound Additional comments: PEG tube site cleansed, insertion site is dry and intact, no erythema, PEG bolster adjusted, movable, nontender. - Extremities Exam Extremities Exam: absent: Calf Tenderness, Pedal Edema - Neurological Exam Neurological Exam: Alert, Awake, Oriented x3 - Skin Skin Exam: Dry, Warm Assessment and Plan - Assessment and Plan (Free Text) Assessment: Assessment: Odynophagia, improved Cachexia Status post EGD for PEG insertion Anemia, drop in blood count, no obvious GI bleeding, recent egd negative Plan: On nystatin monitor H&H and for overt GI bleed Give dose of MiraLAX continue puree diet as tolerated, Bolus feedings ONLY if patient DOES NOT eat scheduled meal. flush PEG Q shift, discuss w/ nurse at bedside. Awaiting subacute placement Seen and discussed w/ Dr. Patterson.
--- NOTE | 2017-06-19 17:30 | CP.PCM.PCO ---
Physician Communication Note - Physician Communication Note Physician Communication Note: not urgent issues, will see pt tomorrow, d/w
[2017-06-20 07:47] VITALS: BP 100/53; PULSE 54; TEMP 97.6; O2SAT 99
[2017-06-20] MEDS: Levothyroxine 50 MCG TAB PO SCH (10:02)
[2017-06-20] MEDS: Nystatin 100,000 Units/ml Oral Susp 5 ml UD PO SCH (10:02)
[2017-06-20] MEDS: Benzocaine/Menthol (Cepacol) Lozenge MT PRN (10:02)
--- NOTE | 2017-06-20 14:26 | CP.PCM.PN ---
Subjective - Date & Time of Evaluation Date of Evaluation: 06/20/17 Time of Evaluation: 11:00 - Subjective Subjective: Seen and examined at the bedside earlier today, chart reviewed. No acute overnight events reported. Patient denies nausea, vomiting, or abdominal pain. As per nursing patient is tolerating oral intake even requesting double portions. No pulseless feedings have been reported. Patient reports having bowel movement yesterday, large amount. No bleeding reported. Objective - Vital Signs/Intake and Output Vital Signs (last 24 hours): Temp Pulse Resp BP Pulse Ox 97.6 F 54 L 18 100/53 L 99 06/20/17 06:00 06/20/17 06:00 06/20/17 06:00 06/20/17 06:00 06/20/17 06:00 Intake and Output: 06/20/17 06/20/17 06:59 18:59 Intake Total 240 Balance 240 - Medications Medications: Current Medications Benzocaine/Menthol (Cepacol Sore Throat) 1 umair MT Q2H PRN PRN Reason: Sore Throat Last Admin: 06/20/17 10:02 Dose: 1 umair Levothyroxine Sodium (Synthroid) 50 mcg PO DAILY [facility] Last Admin: 06/20/17 10:02 Dose: 50 mcg Nystatin (Nystatin Oral Susp) 5 ml PO QID [facility] Last Admin: 06/20/17 10:02 Dose: 5 ml - Labs Labs: 06/19/17 07:00 06/18/17 06:15 PT 11.5 SECONDS (9.4-12.5) 06/09/17 09:59 INR 1.00 (0.93-1.08) 06/09/17 09:59 APTT 30.2 Seconds (25.1-36.5) 06/09/17 09:59 - Constitutional Appears: No Acute Distress - Eye Exam Eye Exam: Normal appearance. absent: Scleral icterus - ENT Exam ENT Exam: Mucous Membranes Moist - Neck Exam Neck Exam: Normal Inspection - Respiratory Exam Respiratory Exam: NORMAL BREATHING PATTERN. absent: Respiratory Distress - Cardiovascular Exam Cardiovascular Exam: +S1, +S2 - GI/Abdominal Exam GI & Abdominal Exam: Soft, Normal Bowel Sounds. absent: Guarding, Tenderness, Organomegaly, Rebound Additional comments: PEG tube site dry with no erythema. - Extremities Exam Extremities Exam: absent: Calf Tenderness, Pedal Edema - Neurological Exam Neurological Exam: Alert, Awake, Oriented x3 Assessment and Plan - Assessment and Plan (Free Text) Assessment: Assessment: Odynophagia, improved Cachexia Status post EGD for PEG insertion Anemia, drop in blood count, no obvious GI bleeding, recent egd negative Plan: On nystatin monitor H&H and for overt GI bleed continue puree diet as tolerated, Bolus feedings ONLY if patient DOES NOT eat scheduled meal. flush PEG Q shift, discuss w/ nurse at bedside. Discussed with nursing, informed upon discharge patient's family to flush PEG daily if not in use. Patient and family has been educated regarding bolus feedings and administration by nursing staff. Seen and discussed w/ Dr. Patterson.
--- NOTE | 2017-06-20 16:27 | CP.PCM.PCO ---
Addendum Addendum: 06/20/17 16:25 this rewriter attempted to speak to this patient, when patient saw this rewriter, patient intentionally close her eyes, stayed mute, and was ignoring this rewriter presence. There is a food tray next to the patient, patient ate 100% of her meal. This rewriter will attempt to speak to the patient tomorrow
--- NOTE | 2017-06-20 20:23 | DS ---
HISTORY OF PRESENT ILLNESS: This is a 67-year-old female who had come to the hospital because of difficulty in swallowing. She mostly complains of pain. The patient is currently comfortable. She had a PEG that was placed, to be able to increase her nutrition. She is cachectic, malnourished. She states that this is mostly because she has pain when she swallows. She had an extensive workup in the past few months with endoscopy and laryngoscopy as well as CAT scan. No specific cause of her odynophagia was found. I believe that she has underlying psychiatric issues but she has not been able to follow as an outpatient to psychiatrist. She does have anxiety. She did have an episode where she had selective mutism a few days ago. The patient is going to be discharged home today. She has not been accepted to any subacute rehab. PHYSICAL EXAMINATION: VITAL SIGNS: Temperature is 98, pulse of 62, blood pressure 122/78, respirations 18, O2 saturation 96% GENERAL: The patient is lying in bed, flat, comfortable. HEENT: No oral lesion. Anicteric sclerae. Moist mucosa. NECK: No JVD, adenopathy, or thyromegaly. CARDIOVASCULAR: S1 and S2, regular. No murmurs, rubs, or gallops. LUNGS: Clear to auscultation bilaterally. No wheeze, rales, or rhonchi. ABDOMEN: Bowel sounds are positive, soft, nontender and nondistended. EXTREMITIES: No cyanosis, clubbing or edema. ASSESSMENT: 1. Odynophagia. 2. Status post percutaneous endoscopic gastrostomy. 3. Hyponatremia, resolved. 4. Cachexia. 5. Hypothyroidism. 6. B12 deficiency. 7. Frailty. PLAN: The patient is currently on Synthroid for hypothyroidism. She is on nystatin. The patient does tolerate her diet. CONDITION: Stable. ACTIVITY: Increase as tolerated. The patient is going to continue Jevity for nutrition if she is not able to eat. Ramy Napier MD
--- NOTE | 2017-06-21 12:34 | CP.PCM.PCO ---
Physician Communication Note - Physician Communication Note Physician Communication Note: pt was d/c yesterday
== END 2017-06-20 15:06 | disposition home or self-care (01) | DRG 392 ==
LOC: ED 09:03 → ERH 12:42 → 5RNO 18:18
PROVIDERS: ADMIT Internal Medicine Medical Oncology; ATTEND Internal Medicine Nephrology
PROC: 0DH63UZ Insertion of Feeding Device into Stomach, Percutaneous Approach (ICD-10-PCS; 2017-06-13)
PROC: 0DJ08ZZ Inspection of Upper Intestinal Tract, Via Natural or Artificial Opening Endoscopic (ICD-10-PCS; principal; 2017-06-13 13:00)
DX: R13.10 Dysphagia, unspecified (principal); E87.1 Hypo-osmolality and hyponatremia; R64 Cachexia; E53.8 Deficiency of other specified B group vitamins; K31.84 Gastroparesis; I10 Essential (primary) hypertension; H40.9 Unspecified glaucoma; F41.0 Panic disorder [episodic paroxysmal anxiety]; F31.9 Bipolar disorder, unspecified; E86.0 Dehydration; B88.8 Other specified infestations; D64.9 Anemia, unspecified; E03.9 Hypothyroidism, unspecified; E11.43 Type 2 diabetes mellitus with diabetic autonomic (poly)neuropathy; E11.65 Type 2 diabetes mellitus with hyperglycemia; E78.00 Pure hypercholesterolemia, unspecified; R62.7 Adult failure to thrive; Z78.9 Other specified health status; Z87.11 Personal history of peptic ulcer disease

== ENCOUNTER 2017-06-26 06:46 | Emergency (ER) | payer MEDICARE, OTHER ==
[2017-06-26 06:47] VITALS: BMI 17.4
[2017-06-26 07:02] VITALS: RESP 18; TEMP 98.4; O2SAT 100
--- NOTE | 2017-06-26 08:04 | ED PDOC ---
Arrival/HPI - General Chief Complaint: Abdominal Pain Time Seen by Provider: 06/26/17 07:13 - History of Present Illness Narrative History of Present Illness (Text): 06/26/17 07:55 Patient is a 67 year old Brazilian speaking female with a past medical history of thyroid disease, diabetes, and recent hospitalization for odynophagia with PEG tube insertion, who presents to the emergency department for difficulty swallowing and urinary retention. Patient was hospitalized here last week and had full work up for odynophagia which was all normal per chart review and conversation with Dr. Fairchild (surgery and GI signed off as well during her stay ). Patient says this morning she felt like she was having a more difficult time swallowing and it was causing her pain, however according to medical records this is not new for her. Patient says her PEG tube is working well though and she has been getting feeds without difficulty, however she occasionally has some pain around the site. Patient also admits to urinary retention since yesterday, which according to record is also not new for her. Patient admits to associated nausea, constipation, mild shortness of breath, and palpitations occasionally, but not currently. Patient denies fever, chills, vomiting, and chest pain. (Maria Alejandra Avila) Past Medical History - Past History Past History: No Previous - Infectious Disease Hx of Infectious Diseases: None - Tetanus Immunization Tetanus Immunization: Unknown - Reproductive Menopause: Yes - Past Medical History Past Medical History: Non-Contributing - Cardiac Hx Hypertension: Yes - Pulmonary Hx Respiratory Disorders: No - Neurological Hx Neurological Disorder: No - HEENT Hx Difficulty Chewing: Yes Hx Glaucoma: Yes - Renal Hx Renal Disorder: No - Endocrine/Metabolic Hx Diabetes Mellitus Type 2: Yes Hx Hypothyroidism: Yes - Hematological/Oncological Hx Blood Transfusions: No Hx Blood Transfusion Reaction: No - Integumentary Hx Dermatological Disorder: Yes Other/Comment: dry skin to feet, long thick toenails left foot toenail great toe overlaps 2nd toe, pt on contact isolation for bedbugs - Musculoskeletal/Rheumatological Hx Falls: No Hx Unsteady Gait: Yes - Gastrointestinal Hx Gastrointestinal Disorders: Yes (weight loss) HX Swallowing Problems: Yes (sore throat) - Genitourinary/Gynecological Hx Genitourinary Disorders: No - Psychiatric Hx Anxiety: Yes Hx Bipolar Disorder: Yes Hx Depression: Yes Hx Panic Disorder: Yes Hx Substance Use: No - Past Surgical History Past Surgical History: No Previous - Surgical History Hx Cardiac Catheterization: Yes Hx Coronary Stent: No - Anesthesia Hx Anesthesia Reactions: No Hx Malignant Hyperthermia: No - Suicidal Assessment Feels Threatened In Home Enviroment: No Family/Social History Family/Social History: No Known Family HX Smoking Status: Never Smoked Hx Alcohol Use: No Hx Substance Use: No Hx Substance Use Treatment: No Allergies/Home Meds Allergies/Adverse Reactions: Allergies No Known Allergies Allergy (Verified 06/26/17 06:55) Home Medications: Home Meds Medication Instructions Recorded Confirmed Levothyroxine [Synthroid] 50 mcg PO DAILY 03/09/15 06/09/17 Pantoprazole Sodium [Protonix] 40 mg PO DAILY 05/24/17 06/09/17 Review of Systems - Physician Review All systems were reviewed & negative as marked: Yes (as per HPI) Physical Exam - Systems Exam Head: Present: Atraumatic, Normocephalic Pupils: Present: PERRL Extroacular Muscles: Present: EOMI Conjunctiva: Present: Normal Mouth: Present: Dry, Other (poor dentition) Pharnyx: Present: Normal. No: ERYTHEMA, EXUDATE, TONSILS ENLARGED, Peritonsilar Swelling, Uvular Deviation, Muffled/Hoarse Voice, [place], Soft Palate/Uvular Edema Nose (Internal): Present: Normal Inspection Neck: Present: Normal Range of Motion, Trachea Midline. No: MIDLINE TENDERNESS , Lymphadenopathy Respiratory/Chest: Present: Clear to Auscultation, Good Air Exchange. No: Respiratory Distress, Accessory Muscle Use, Wheezes, Rales, Rhonchi Cardiovascular: Present: Regular Rate and Rhythm, Normal S1, S2. No: Murmurs Abdomen: Present: Normal Bowel Sounds. No: Tenderness, Distention, Peritoneal Signs Upper Extremity: Present: Normal Inspection. No: Cyanosis, Edema Lower Extremity: Present: Normal Inspection. No: Edema Neurological: Present: GCS=15, Speech Normal Skin: Present: Warm, Dry, Normal Color. No: Rashes Psychiatric: Present: Alert, Oriented x 3 Vital Signs Temp Pulse Resp BP Pulse Ox 06/26/17 06:57 98.4 F 68 18 115/67 100 Medical Decision Making ED Course and Treatment: Seen and examined with resident. 67 y/o F p/w urinary retention and unchanged difficulty swallowing. Has working gastric tube. Daniel placed, 500cc. Changed to leg bag, f/u Urology. Discussed case with Dr. Napier. [facility] - Lab Interpretations Lab Results: 06/26/17 08:22 06/26/17 08:22 Lab Results 06/26/17 08:30: Urine Color Yellow, Urine Appearance Clear, Urine pH 7.5, Ur Specific [place] 1.010, Urine Protein Negative, Urine Glucose (UA) Negative, Urine Ketones Negative, Urine Blood Negative, Urine Nitrate Negative, Urine Bilirubin Negative, Urine Urobilinogen 0.2, Ur Leukocyte Esterase Negative 06/26/17 08:22: Sodium 127 L, Potassium 5.3 H, Chloride 89 L, Carbon Dioxide 28 , Anion Gap 15, BUN 12, Creatinine 0.5 L, Est GFR ( Amer) > 60, Est GFR ( Non-Af Amer) > 60, Random Glucose 94, Calcium 8.9, Total Bilirubin < 0.1 L, AST 18, ALT 17, Alkaline Phosphatase 102, Total Protein 7.2, Albumin 3.7, Globulin 3.4, Albumin/Globulin Ratio 1.1 06/26/17 08:22: WBC 4.8, RBC 4.09, Hgb 10.9 L, Hct 32.3 L, MCV 79.0 L D, MCH 26.7, MCHC 33.7, RDW 14.1, Plt Count 461 H, MPV 8.9, Gran % 74.6 H, Lymph % ( Auto) 17.9 L, [place] % (Auto) 6.5 H, Eos % (Auto) 0.4 L, Baso % (Auto) 0.6, Gran # 3.54, Lymph # (Auto) 0.9 L, [place] # (Auto) 0.3, Eos # (Auto) 0.0, Baso # (Auto ) 0.03 - Medication Orders Current Medication Orders: Discontinued Medications Sodium Chloride (Sodium Chloride 0.9%) 1,000 mls @ 999 mls/hr IV .[id number] STA Stop: 06/26/17 10:24 Last Admin: 06/26/17 09:59 Dose: 999 mls/hr eMAR Start Stop Document 06/26/17 09:59 SRE (Rec: 06/26/17 10:00 SRE [id number]) Intravenous Solution Start Date 06/26/17 Start Time 09:59 End Date 05/08/18 End time 11:00 Total Infusion Time 61 - PA / POULTRY [employer]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 / has examined the patient and agrees with the treatment plan. Disposition/Present on Arrival - Present on Arrival Any Indicators Present on Arrival: No History of DVT/PE: No History of Uncontrolled Diabetes: No Urinary Catheter: No History of Decub. Ulcer: No History Surgical Site Infection Following: None - Disposition Have Diagnosis and Disposition been Completed?: Yes Disposition Time: 09:30 Patient Plan: Discharge - Disposition Diagnosis: Urinary retention Disposition: HOME/ ROUTINE Condition: STABLE Discharge Instructions (ExitCare): Urinary Retention Referrals: Patricia Gonzalez MD [Staff Provider] - Follow up with primary Ramy Napier MD [Family Provider] - Follow up with primary Forms: Spayee ([place])
[2017-06-26 08:27] LABS: BASO # 0.03 K/mm3 (0.0-2.0); BASO % 0.6 % (0.0-3.0); EOS % 0.4 % (1.5-5.0); GRAN # 3.54 (1.4-6.5); GRAN % 74.6 % (50.0-68.0); HEMOGLOBIN 10.9 g/dL (12.0-16.0); LYMPH # 0.9 (1.2-3.4); LYMPH % 17.9 % (22.0-35.0); MEAN CORPUSCULAR HEMOGLOBIN 26.7 pg (25.0-35.0); MEAN CORPUSCULAR HGB CONC 33.7 g/dl (31.0-37.0); MEAN PLATELET VOLUME 8.9 fl (7.0-11.0); MONO # 0.3 (0.1-0.6); MONO % 6.5 % (1.0-6.0); RBC 4.09 10^6/uL (3.5-6.1); RED CELL DISTRIBUTION WIDTH 14.1 % (11.5-14.5); WHITE BLOOD COUNT 4.8 10^3/ul (4.5-11.0)
[2017-06-26 08:43] LABS: ALB/GLOB RATIO 1.1 (1.1-1.8); ALBUMIN 3.7 g/dL (3.0-4.8); ALT/SGPT 17 U/L (7-56); AST/SGOT 18 U/L (14-36); BLOOD UREA NITROGEN 12 mg/dL (7-21); CALCIUM 8.9 mg/dL (8.4-10.5); GFR AFRICAN-AMERICAN > 60; GFR NON-AFRICAN AMERICAN > 60
[2017-06-26 09:03] LABS: PH,URINE 7.5 (4.7-8.0); URINE BILIRUBIN NEGATIVE (NEGATIVE); URINE BLOOD NEGATIVE (NEGATIVE); URINE GLUCOSE (UA) NEGATIVE (NEGATIVE); URINE LEUKOCYTE ESTERASE NEGATIVE Leu/uL (NEGATIVE); URINE PROTEIN NEGATIVE mg/dL (<30 mg/dL); URINE UROBILINOGEN 0.2 E.U./dL (<1 E.U./dL)
[2017-06-26 09:22] LABS: URINE APPEARANCE CLEAR (CLEAR); URINE COLOR YELLOW (YELLOW)
[2017-06-26] MEDS ORDERED: Sodium Chloride 0.9% 1,000 ML IV STA (09:24)
[2017-06-26 12:44] VITALS: BP 119/63; PULSE 59
== END 2017-06-26 13:30 | disposition home or self-care (01) ==
LOC: ED 06:46
DX: R33.9 Retention of urine, unspecified (principal); I10 Essential (primary) hypertension; E11.9 Type 2 diabetes mellitus without complications; E03.9 Hypothyroidism, unspecified
CPT/HCPCS: 80053; 81003; 85025; 96360; 99284; J7040

== ENCOUNTER 2017-07-04 15:03 | Observation (INO) | payer MEDICARE, OTHER ==
--- NOTE | 2017-07-04 16:05 | ED PDOC ---
Arrival/HPI - General Time Seen by Provider: 07/04/17 15:05 Historian: Patient, Spouse - History of Present Illness Narrative History of Present Illness (Text): 07/04/17 16:04 Rylie Pierre is a 67 year old female, whose past medical history includes hypertension, diabetes, peptic ulcer disease, constipation, and cachexia, who presents to the Emergency department sent from Dr. Galdamez's office accompanied by for difficulty eating and not swallowing for the past several months. Patient communicates that she has difficulty swallowing. is at bedside and states she continues to have throat discomfort and has not been eating "for a long time". Symptom Onset: Gradual Symptom Course: Unchanged Activities at Onset: Light Context: Home Past Medical History - Past History Past History: No Previous - Infectious Disease Hx of Infectious Diseases: None - Tetanus Immunization Tetanus Immunization: Unknown - Past Medical History Past Medical History: Non-Contributing - Cardiac Hx Hypertension: Yes - Pulmonary Hx Respiratory Disorders: No - Neurological Hx Neurological Disorder: No - HEENT Hx Difficulty Chewing: Yes Hx Glaucoma: Yes - Renal Hx Renal Disorder: No - Endocrine/Metabolic Hx Diabetes Mellitus Type 2: Yes Hx Hypothyroidism: Yes - Hematological/Oncological Hx Blood Transfusions: No Hx Blood Transfusion Reaction: No - Integumentary Hx Dermatological Disorder: Yes Other/Comment: dry skin to feet, long thick toenails left foot toenail great toe overlaps 2nd toe, pt on contact isolation for bedbugs - Musculoskeletal/Rheumatological Hx Falls: No Hx Unsteady Gait: Yes - Gastrointestinal Hx Gastrointestinal Disorders: Yes (weight loss) HX Swallowing Problems: Yes (sore throat) - Genitourinary/Gynecological Hx Genitourinary Disorders: No - Psychiatric Hx Anxiety: Yes Hx Bipolar Disorder: Yes Hx Depression: Yes Hx Panic Disorder: Yes Hx Substance Use: No - Past Surgical History Past Surgical History: No Previous - Surgical History Hx Cardiac Catheterization: Yes Hx Coronary Stent: No - Anesthesia Hx Anesthesia Reactions: No Hx Malignant Hyperthermia: No - Suicidal Assessment Feels Threatened In Home Enviroment: No Family/Social History - Physician Review Nursing Documentation Reviewed: Yes Family/Social History: Unknown Family HX Smoking Status: Never Smoked Hx Alcohol Use: No Hx Substance Use: No Hx Substance Use Treatment: No Allergies/Home Meds Allergies/Adverse Reactions: Allergies No Known Allergies Allergy (Verified 06/26/17 06:55) Home Medications: Home Meds Medication Instructions Recorded Confirmed Levothyroxine [Synthroid] 50 mcg PO DAILY 03/09/15 06/09/17 Pantoprazole Sodium [Protonix] 40 mg PO DAILY 05/24/17 06/09/17 Review of Systems - Review of Systems Systems not reviewed;Unavailable: Other (poor historian) Constitutional: Fatigue ENT: Sore Throat. absent: Voice Changes Respiratory: absent: SOB, Cough Cardiovascular: absent: Chest Pain Gastrointestinal: Appetite Changes. absent: Abdominal Pain Neurological: absent: Headache, Focal Weakness Physical Exam Vital Signs Reviewed: Yes Vital Signs Temp Pulse Resp BP Pulse Ox 07/04/17 21:16 97.6 F 07/04/17 20:28 57 L 17 168/84 H 100 07/04/17 17:04 68 18 132/76 100 07/04/17 15:03 97.8 F 53 L 18 143/80 100 Temperature: Afebrile Blood Pressure: Normal Pulse: Bradycardic Respiratory Rate: Normal Appearance: Positive for: Cachectic Pain Distress: Mild - Systems Exam Head: Present: Atraumatic Mouth: Present: Other (no uvular deviation, no phayrngeal abscess noted, no stridor, no pooling of secretions). No: Drooling Pharnyx: No: ERYTHEMA, EXUDATE, Muffled/Hoarse Voice Nose (External): Present: Atraumatic Neck: Present: Normal Range of Motion. No: Meningeal Signs Respiratory/Chest: Present: Clear to Auscultation. No: Respiratory Distress Cardiovascular: Present: Murmurs, Bradycardic Abdomen: Present: Normal Bowel Sounds, Other (feeding tube clean and intact, no erythema or edema). No: Tenderness, Distention, Peritoneal Signs Rectal: No: Gross Blood Neurological: Present: Motor Func Grossly Intact, Normal Sensory Function, Other (moves all extremities) Skin: Present: Pale Psychiatric: Present: Alert, Agitated. No: Oriented x 3 Medical Decision Making ED Course and Treatment: 07/04/17 16:05 Impression: 67 year old female complaining of difficulty eating and not swallowing for the past several months. Differential Diagnosis included but are not limited to: metabolic disturbance, malignancy, neurologic disorder, dehydration, ENT disorder Plan: -- EKG -- Chest X-ray -- Labs, cardiac enzymes, lipase, VBG, blood cultures -- Urinalysis, urine cultures -- Reassess and disposition Prior Visits: Notes and results from previous visits were reviewed. On 06/26/2017, pt was seen for similar complaints and urinary retention. Pt was d/c home. CT Head on 06/09/17 shows: No acute intracranial hemorrhage or an large acute infarct so far as can be seen. There may be a few scattered chronic left basal nuclei lacunar type infarcts. Mild moderate generalized volume loss. CT Neck/Chest on 06/04/2017 shows: 1 centimeter nodule in the left lobe of the thyroid gland. Minimal left pleural effusion. CT Abdomen and Pelvis on 06/01/2017 shows: No acute findings. There is chronic severe distention of the bladder which extends up to the level of the iliac crests. Progress Notes: Patient's history reviewed with Dr. Galdamez and at bedside. Patient has no stridor. No hypoxia. No drooling. No angioedema noted. Lungs clear. She has no acute focal weakness noted by history or exam. There has been prior ct head evaluation and no change in mental status as per . Report Date : 07/04/2017 17:16:26 Impression: Chest xray Dictator : Ankit Walker MD IMPRESSION: No active disease. No significant interval change compared to the prior examination(s). Recent CT neck and chest reviewed. Clinically no respiratory distress or signs of acute obstruction. She is hyponatremic, ? secondary to poor intake, although cannot exclude that there is underlying disease process not evident on prior imaging studies. She denies headache, denies nausea. IV fluids initiated, case d/w Dr. Napier, who accepts patient to her service. 07/04/17 22:10 - Lab Interpretations Lab Results: 07/04/17 18:10 07/04/17 18:10 Lab Results 07/04/17 18:10: Sodium 124 L, Chloride 85 L, Potassium 4.6, Carbon Dioxide 28, Anion Gap 15, BUN 10, Creatinine 0.5 L, Est GFR ( Amer) > 60, Est GFR ( Non-Af Amer) > 60, Random Glucose 92, Calcium 8.9, Total Bilirubin 0.1 L, AST 43 H D, ALT 25, Alkaline Phosphatase 127 H D, Lactate Dehydrogenase 278 L, Total Creatine Kinase 46, Troponin I < 0.01 D, Total Protein 7.9, Albumin 4.1, Globulin 3.8, Albumin/Globulin Ratio 1.1, Lipase 106 07/04/17 18:10: PT 11.0, INR 0.97, APTT 27.9 07/04/17 18:10: WBC 6.1 D, RBC 4.03, Hgb 10.7 L, Hct 31.8 L, MCV 78.9 L, MCH 26.6, MCHC 33.6, RDW 14.1, Plt Count 552 H, MPV 8.8, Gran % 65.2, Lymph % (Auto ) 24.5, [place] % (Auto) 9.5 H, Eos % (Auto) 0.3 L, Baso % (Auto) 0.5, Gran # 3.96 , Lymph # (Auto) 1.5, [place] # (Auto) 0.6, Eos # (Auto) 0.0, Baso # (Auto) 0.03 07/04/17 18:09: pO2 34, VBG pH 7.34, VBG pCO2 58.0, VBG HCO3 31.3 H, VBG Total CO2 33.1 H, VBG O2 Sat (Calc) 67.4 H, VBG Base Excess 3.9 H, VBG Potassium 4.9, Sodium 120.0 L*, Chloride 87.0 L, Glucose 97, Lactate 1.7, FiO2 21.0, Venous Blood Potassium 4.9 07/04/17 18:00: Urine Color Yellow, Urine Appearance Sl cloudy, Urine pH 7.5, Ur Specific [place] 1.010, Urine Protein Negative, Urine Glucose (UA) Negative, Urine Ketones Negative, Urine Blood Trace-lysed H, Urine Nitrate Negative, Urine Bilirubin Negative, Urine Urobilinogen 0.2, Ur Leukocyte Esterase Large H , Urine RBC 1 - 3, Urine WBC 10 - 15, Ur Epithelial Cells 4 - 5, Urine Bacteria Mod - RAD Interpretation Radiology Orders: 07/04/17 16:18 CHEST PORTABLE [RAD] Stat Cloth Examiner Machine: Radiologist - EKG Interpretation EKG Interpretation (Text): EKG at 17:50 sinus bradycardia rate of 56 Interpreted by ED Physician: Yes Type: 12 lead EKG - Medication Orders Current Medication Orders: Dextrose/Sodium Chloride (Dextrose 5%/0.9% Ns 1000 Ml) 1,000 mls @ 100 mls/hr IV .Q10H LAUREN Last Admin: 07/04/17 20:28 Dose: 100 mls/hr eMAR Start Stop Document 07/04/17 20:28 IT (Rec: 07/04/17 20:28 IT [id number]) Intravenous Solution Start Date 07/04/17 Start Time 20:28 Ceftriaxone Sodium (Rocephin 1 Gram Ivpb) 1 gm in 100 mls @ 200 mls/hr IVPB ONCE STA PRN Reason: Protocol Stop: 07/04/17 22:07 Last Admin: 07/04/17 21:55 Dose: 200 mls/hr eMAR Start Stop Document 07/04/17 21:55 IT (Rec: 07/04/17 21:55 IT [id number]) Intravenous Solution Start Date 07/04/17 Start Time 21:55 End Date 07/04/17 Discontinued Medications Sodium Chloride (Sodium Chloride 0.9%) 1,000 mls @ 100 mls/hr IV .Q10H [facility] Last Admin: 07/04/17 19:58 Dose: 100 mls/hr eMAR Start Stop Document 07/04/17 19:58 IT (Rec: 07/04/17 19:59 IT [id number]) Intravenous Solution Start Date 07/04/17 Start Time 19:59 - Scribe Statement The provider has reviewed the documentation as recorded by the Scribtyson Mondragon All medical record entries made by the Scribe were at my direction and personally dictated by me. I have reviewed the chart and agree that the record accurately reflects my personal performance of the history, physical exam, medical decision making, and the department course for this patient. I have also personally directed, reviewed, and agree with the discharge instructions and disposition. Disposition/Present on Arrival - Present on Arrival Any Indicators Present on Arrival: No History of DVT/PE: No History of Uncontrolled Diabetes: No Urinary Catheter: No History Surgical Site Infection Following: None - Disposition Have Diagnosis and Disposition been Completed?: Yes Diagnosis: Hyponatremia, Dysphagia, UTI (urinary tract infection) Disposition: HOSPITALIZED Disposition Time: 17:30 Patient Plan: Admission, Observation Patient Problems: Current Active Problems Problem Status Onset Dysphagia Acute Hyponatremia Acute Condition: FAIR
[2017-07-04 16:12] VITALS: BMI 19.5
--- NOTE | 2017-07-04 17:17 | RAD ---
HISTORY: weakness COMPARISON: 06/09/2017 FINDINGS: LUNGS: No active pulmonary disease. PLEURA: No significant pleural effusion identified, no pneumothorax apparent. CARDIOVASCULAR: No radiographic findings to suggest acute or significant cardiovascular disease. OSSEOUS STRUCTURES: No significant abnormalities. VISUALIZED UPPER ABDOMEN: Normal. OTHER FINDINGS: None. IMPRESSION: No active disease. No significant interval change compared to the prior examination(s).
[2017-07-04 18:16] LABS: VENOUS BLOOD GAS BASE EXCESS 3.9 mmol/L (0.0-2.0); VENOUS BLOOD GAS PO2 34 mm/Hg (30-55); VENOUS BLOOD PH 7.34 (7.32-7.43)
[2017-07-04 18:28] LABS: BASO # 0.03 K/mm3 (0.0-2.0); BASO % 0.5 % (0.0-3.0); EOS % 0.3 % (1.5-5.0); GRAN # 3.96 (1.4-6.5); GRAN % 65.2 % (50.0-68.0); HEMOGLOBIN 10.7 g/dL (12.0-16.0); LYMPH # 1.5 (1.2-3.4); LYMPH % 24.5 % (22.0-35.0); MEAN CELL VOLUME 78.9 fl (80.0-105.0); MEAN CORPUSCULAR HEMOGLOBIN 26.6 pg (25.0-35.0); MEAN CORPUSCULAR HGB CONC 33.6 g/dl (31.0-37.0); MEAN PLATELET VOLUME 8.8 fl (7.0-11.0); MONO # 0.6 (0.1-0.6); MONO % 9.5 % (1.0-6.0); RBC 4.03 10^6/uL (3.5-6.1); RED CELL DISTRIBUTION WIDTH 14.1 % (11.5-14.5); WHITE BLOOD COUNT 6.1 10^3/ul (4.5-11.0)
[2017-07-04 18:38] LABS: INR 0.97 (0.93-1.08)
[2017-07-04 18:39] LABS: PARTIAL THROMBOPLASTIN TIME 27.9 Seconds (25.1-36.5)
[2017-07-04 18:56] LABS: TROPONIN I < 0.01 ng/mL
[2017-07-04 18:59] LABS: ALB/GLOB RATIO 1.1 (1.1-1.8); ALBUMIN 4.1 g/dL (3.0-4.8); ALT/SGPT 25 U/L (7-56); AST/SGOT 43 U/L (14-36); BLOOD UREA NITROGEN 10 mg/dL (7-21); CALCIUM 8.9 mg/dL (8.4-10.5); GFR AFRICAN-AMERICAN > 60; GFR NON-AFRICAN AMERICAN > 60; LIPASE 106 U/L (23-300)
[2017-07-04] MEDS ORDERED: Sodium Chloride 0.9% 1,000 ML IV SCH (19:45)
[2017-07-04] MEDS: Dextrose 5%/0.9% NS 1,000 ML IV SCH (20:28)
[2017-07-04 21:07] LABS: PH,URINE 7.5 (4.7-8.0); URINE BILIRUBIN NEGATIVE (NEGATIVE); URINE BLOOD TRACE-LYSED (NEGATIVE); URINE GLUCOSE (UA) NEGATIVE (NEGATIVE); URINE LEUKOCYTE ESTERASE LARGE Leu/uL (NEGATIVE); URINE PROTEIN NEGATIVE mg/dL (<30 mg/dL); URINE UROBILINOGEN 0.2 E.U./dL (<1 E.U./dL)
--- NOTE | 2017-07-04 21:08 | CARD ---
APPROVED REPORT EKG Measurement Heart [id number] OR 196P [id number] <Conclusion> Sinus bradycardia Otherwise normal ECG
[2017-07-04 21:09] LABS: URINE APPEARANCE SL CLOUDY (CLEAR); URINE COLOR YELLOW (YELLOW)
[2017-07-04 21:18] LABS: URINE BACTERIA MOD (NEG)
[2017-07-04] MEDS ORDERED: cefTRIAXone 1 gm 1 GM/100 ML BAG IVPB STA (21:38)
[2017-07-05 08:42] LABS: BLOOD UREA NITROGEN 8 mg/dL (7-21); CALCIUM 8.8 mg/dL (8.4-10.5); GFR AFRICAN-AMERICAN > 60; GFR NON-AFRICAN AMERICAN > 60
[2017-07-05] MEDS: Dextrose 5%/0.9% NS 1,000 ML IV SCH ×2 (09:16→19:42)
--- NOTE | 2017-07-05 19:24 | HP ---
DATE OF EXAM: 07/05/2017 CHIEF COMPLAINT AND HISTORY OF PRESENT ILLNESS: This is a 67-year-old female who is coming into the hospital complaining of difficulty in swallowing. The patient has had this issue for months and has had an extensive evaluation. She was seen by Dr. Galdamez in his office. I did speak to him. The patient says that she is having difficulty eating and not able to swallow. I did explain to the patient as well as other healthcare provider that if she has difficulty swallowing, she should be using a PEG. This is the reason the PEG was placed, mostly for nutrition because she has been losing weight. She has had an extensive workup for malignancy as well. She has had a laryngoscopy and an endoscopy done. The patient says she has pain when she eats sometimes. She denies any fevers or chills. No dysuria or frequency. No abdominal pain, no back pain, no headaches or dizziness. REVIEW OF SYSTEMS: All other review of symptoms are within normal limits except what was mentioned. ALLERGIES: NO KNOWN DRUG ALLERGIES. HOME MEDICATIONS: Synthroid and Protonix. PAST MEDICAL HISTORY: Odynophagia, hyponatremia, hypothyroidism, B12 deficiency, frailty. PAST SURGICAL HISTORY: EGD in 05/2017. Laryngoscopy in 05/2017. PEG placement in 05/2017. FAMILY HISTORY: Noncontributory. PHYSICAL EXAMINATION VITAL SIGNS: The patient has a temperature of 97.5, pulse of 80, blood pressure is 136/53, O2 saturation 96%. Height is 5 feet. Weight is 100 pounds. BMI is 19.5. GENERAL: The patient lying in bed, uncomfortable, and in no acute distress. HEENT: Atraumatic and normocephalic. Anicteric sclerae. Moist mucosa. Martha conjunctivae. No oral lesions. NECK: No JVD, anterior and posterior adenopathy, thyromegaly, or bruits. CARDIOVASCULAR: S1 and S2 regular. No murmur, rubs, or gallop. LUNGS: Clear to auscultation bilaterally. No wheezes, rales, or rhonchi. ABDOMEN: Bowel sounds are positive. Soft, nontender and nondistended. No hepatosplenomegaly. No rebound and no guarding EXTREMITIES: No cyanosis, clubbing, or edema. NEUROLOGIC: No facial asymmetry. Tongue is midline. No uvula deviation. Power is 5/5 upper extremity and lower extremity. Sensation intact in upper extremity and lower extremity. PSYCHIATRIC: She is awake, alert and oriented x3. No anxiety or depression. She has normal affect. She denies any hallucinations or depression. She does get anxious at times because of swallowing. GENITOURINARY: No CVA tenderness. VASCULAR: 2+ pulses in the carotid pulses and pedal pulses. SKIN: No erythema or nodules SPINE: Shows normal curvature. LABORATORY DATA: Labs have been reviewed. White count of 6.1, hemoglobin 10.7. The sodium is 124, repeat sodium is 134. Alkaline phosphatase of 127, LDH is 78. EKG shows sinus bradycardia at 56, QTc is 403. Chest x-ray done shows no active disease. ASSESSMENT: 1. Hyponatremia. 2. Odynophagia. 3. Percutaneous esophageal gastrostomy placement. 4. Cachexia. 5. Hypothyroidism. 6. Frailty. PLAN: The patient continues to have similar symptoms that she has had last month. She was advised that if she has pain when she swallows, she should just use the PEG. I am not sure if she has been compliant. She has had an extensive workup and I am not sure if there is anything else that can be done at this point. She has had psychiatric evaluation. She has had GI and ENT evaluation done. She has had CAT scan of her abdomen and pelvis. She has had CAT scan of her neck and chest and of her head. We will see if she qualifies to go to subacute rehab. Ramy Napier MD
[2017-07-06] MEDS ORDERED: Dextrose 5%/0.9% NS 1,000 ML IV SCH (08:48)
[2017-07-06 08:50] VITALS: PULSE 73; RESP 18; TEMP 97.7; O2SAT 99
[2017-07-06 08:51] VITALS: BP 103/48
--- NOTE | 2017-07-09 09:21 | DS ---
HISTORY OF PRESENT ILLNESS: This is a 67-year-old female who is coming into the hospital because of difficulty in swallowing. She has had this odynophagia on multiple visits. She has been seen by Psychiatry, GI and ENT. She has had an extensive workup including a PEG placement because she claims of not able to swallow. Although, she has been seen eating in the hospital. I have advised her to not eat. She is having significant pain and use the PEG feedings. I suspect that she may not even be using PEG feedings at home. She is currently comfortable. Her sodium that has improved. PHYSICAL EXAMINATION: VITAL SIGNS: Temperature is 97.9, pulse is 74, blood pressure , respirations 20, O2 saturation . GENERAL: The patient is lying in bed, flat, comfortable. HEENT: No oral lesion. Anicteric sclerae. Moist mucosa. NECK: No JVD, adenopathy, or thyromegaly. CARDIOVASCULAR: S1 and S2, regular. No murmurs, rubs, or gallops. LUNGS: Clear to auscultation bilaterally. No wheeze, rales, or rhonchi. ABDOMEN: Bowel sounds are positive, soft, nontender and nondistended. EXTREMITIES: No cyanosis, clubbing or edema. ASSESSMENT: 1. Odynophagia. 2. Hyponatremia, resolved. 3. Percutaneous esophageal gastrostomy placement. 4. Cachexia. 5. Hypothyroidism. 6. Frailty. PLAN: The patient is currently comfortable. She is on IV fluids. She is complaining of constipation, given lactulose. Her last thyroid was normal that was taken about one month ago . She is going to be discharged home to follow as an outpatient. CONDITION: Stable. ACTIVITIES: Increase as tolerated. Ramy Napier MD
== END 2017-07-06 18:32 | disposition home or self-care (01) ==
LOC: ED 15:03 → ERH 20:25 → 5RSO 22:23
PROVIDERS: ADMIT Internal Medicine Nephrology; ATTEND Internal Medicine Nephrology
DX: R13.10 Dysphagia, unspecified (principal); R64 Cachexia; Z68.1 Body mass index [BMI] 19.9 or less, adult; I10 Essential (primary) hypertension; E11.9 Type 2 diabetes mellitus without complications; K59.00 Constipation, unspecified; N39.0 Urinary tract infection, site not specified; E87.1 Hypo-osmolality and hyponatremia; E03.9 Hypothyroidism, unspecified; E53.8 Deficiency of other specified B group vitamins; R54 Age-related physical debility; Z87.11 Personal history of peptic ulcer disease
CPT/HCPCS: 36415; 71045; 80048; 80053; 81001; 82550; 82803; 82948; 83615; 83690; 84484; 85025; 85610; 85730; 87040; 87086; 87181; 93005; 96374; 96375; 96376; 97116; 97161; 99285; C9113; G0378; G8978; G8979; J0696; J7040; J7042

== ENCOUNTER 2017-07-08 11:57 | Emergency (ER) | payer MEDICARE, OTHER ==
[2017-07-08 11:58] VITALS: BMI 19.5
[2017-07-08] MEDS ORDERED: Sodium Chloride 0.9% 1,000 ML IV STA (12:34)
--- NOTE | 2017-07-08 12:52 | ED PDOC ---
Arrival/HPI - General Chief Complaint: GI Problem Time Seen by Provider: 07/08/17 12:20 Historian: Patient - History of Present Illness Narrative History of Present Illness (Text): 07/08/17 12:45 67 year old female, with past medical history of GERD and hyperthyroidism s/p PEG placement due to mal-nourishment from odynophagia was recently admitted and discharged on 07/05/17 after extensive dysphagia workup, which was likely significant for non-compliance with her PEG. Patient had a CT of Abdomen/Pelvis with contrast on 07/01/17, which just significant for chronic severe bladder distention. Patient presents to the Emergency department complaining of 5 days of constipation culminating in the output of 2 pellet like stool and lack of urination. Patient denies any fever, chills, nausea, vomiting, diarrhea, abdominal pain, chest pain, shortness of breath or any other complaints. Patient presents to the Emergency department for medical evaluation. Time/Duration: < week Symptom Onset: Gradual Symptom Course: Unchanged Activities at Onset: Light Context: Home Past Medical History - Provider Review Nursing Documentation Reviewed: Yes - Past History Past History: No Previous - Infectious Disease Hx of Infectious Diseases: None - Tetanus Immunization Tetanus Immunization: Unknown - Reproductive Menopause: Yes - Past Medical History Past Medical History: Non-Contributing - Cardiac Hx Cardiac Disorders: Yes Hx Hypertension: Yes - Pulmonary Hx Respiratory Disorders: No - Neurological Hx Neurological Disorder: No - HEENT Hx Difficulty Chewing: Yes Hx Glaucoma: Yes - Renal Hx Renal Disorder: No - Endocrine/Metabolic Hx Diabetes Mellitus Type 2: Yes Hx Hypothyroidism: Yes - Hematological/Oncological Hx Blood Disorders: No Hx AIDS: No Hx Anemia: No Hx Cancer: No Hx Chemotherapy: No Hx Cirrhosis: No Hx Hepatitis A: No Hx Hepatitis B: No Hx Hepatitis C: No Hx Metastasis: No Hx Shingles: No Hx Unexplained Bleeding: No - Integumentary Hx Dermatological Disorder: Yes - Musculoskeletal/Rheumatological Hx Falls: No (long tie ago) - Gastrointestinal Hx Gastrointestinal Disorders: Yes (weight loss) HX Swallowing Problems: Yes (sore throat) - Genitourinary/Gynecological Hx Genitourinary Disorders: No - Psychiatric Hx Anxiety: Yes Hx Bipolar Disorder: Yes Hx Depression: Yes Hx Panic Disorder: Yes Hx Substance Use: No - Past Surgical History Past Surgical History: No Previous - Surgical History Hx Cardiac Catheterization: Yes Hx Coronary Stent: No - Anesthesia Hx Anesthesia Reactions: No Hx Malignant Hyperthermia: No - Suicidal Assessment Feels Threatened In Home Enviroment: No Family/Social History - Physician Review Nursing Documentation Reviewed: Yes Family/Social History: No Known Family HX Smoking Status: Never Smoked Hx Alcohol Use: No Hx Substance Use: No Hx Substance Use Treatment: No Allergies/Home Meds Allergies/Adverse Reactions: Allergies No Known Allergies Allergy (Verified 07/08/17 12:10) Home Medications: Home Meds Medication Instructions Recorded Confirmed Levothyroxine [Synthroid] 50 mcg PO DAILY 03/09/15 06/09/17 Pantoprazole Sodium [Protonix] 40 mg PO DAILY 05/24/17 06/09/17 Review of Systems - Physician Review All systems were reviewed & negative as marked: Yes - Review of Systems Constitutional: Normal. absent: Fevers Eyes: Normal ENT: Normal Respiratory: Normal. absent: SOB Cardiovascular: Normal. absent: Chest Pain Gastrointestinal: Constipation. absent: Abdominal Pain, Diarrhea, Nausea, Vomiting Genitourinary Female: Other (lack of urination) Musculoskeletal: Normal Physical Exam Vital Signs Reviewed: Yes Vital Signs Temp Pulse Resp BP Pulse Ox 07/08/17 12:07 97.6 F 63 18 157/96 H 100 Temperature: Afebrile Blood Pressure: Hypertensive Pulse: Regular Respiratory Rate: Normal Appearance: Positive for: Well-Appearing, Non-Toxic, Comfortable Pain Distress: None Mental Status: Positive for: Alert and Oriented X 3 - Systems Exam Head: Present: Atraumatic, Normocephalic Pupils: Present: PERRL Extroacular Muscles: Present: EOMI Conjunctiva: Present: Normal Mouth: Present: Dry Neck: Present: Other (flat neck veins) Respiratory/Chest: Present: Clear to Auscultation, Good Air Exchange. No: Respiratory Distress, Accessory Muscle Use Cardiovascular: Present: Regular Rate and Rhythm, Normal S1, S2. No: Murmurs Abdomen: Present: Other (PEG in place; no bhavana PEG ostomy cellulits). No: Tenderness, Distention, Peritoneal Signs, Rebound, Guarding Upper Extremity: Present: Normal Inspection. No: Cyanosis, Edema Lower Extremity: Present: Normal Inspection. No: Edema Neurological: Present: GCS=15, CN II-XII Intact, Speech Normal Skin: Present: Warm, Dry, Normal Color. No: Rashes Psychiatric: Present: Alert, Oriented x 3, Normal Insight, Normal Concentration Medical Decision Making ED Course and Treatment: 07/08/17 12:33 Impression: 67 year old female with recent extensive GI workup presents with odinophagia likely chronic non-compliance with PEG, constipation and oliguria. Differential Diagnosis included but are not limited to: dehydration vs. obstruction Plan: -- Labs -- IV fluids -- X-ray of abdomen/pelvis -- Reassess and disposition Progress Notes: 07/08/17 13:43 X-ray of Abdomen/Pelvis reviewed by radiologist, shows: FINDINGS: BOWEL: Constipation without fecal impaction or obstruction. BONES: Normal. OTHER FINDINGS: Gastrostomy tube identified. IMPRESSION: No significant or acute findings to account for/ related to the clinical presentation. 07/08/17 14:18 serial abdominal exams benign, diet and lifestyle counseled to her and her daughter ronel raines/ advisory to add prunes to her diet, vegetables and fruits blended to a smooth consistency , as well asmore water in between m,eale sto facilitate more frequent urinationand bowel movements. Will be prescribed a bowel regimen as well . 07/08/17 14:28 of note 07/04/17 ua (+) for wbc's /bacteria :+uti which was never treated . 3 day course of ABX will be given - Lab Interpretations Lab Results: 07/08/17 12:45 07/08/17 12:45 Lab Results 07/08/17 12:45: Sodium 130 L, Potassium 4.4, Chloride 91 L, Carbon Dioxide 30, Anion Gap 13, BUN 11, Creatinine 0.5 L, Est GFR ( Amer) > 60, Est GFR ( Non-Af Amer) > 60, Random Glucose 117 H, Calcium 8.8, Total Bilirubin 0.2, AST 24, ALT 23, Alkaline Phosphatase 97, Total Protein 7.5, Albumin 3.7, Globulin 3.8, Albumin/Globulin Ratio 1.0 L 07/08/17 12:45: WBC 5.2, RBC 4.06, Hgb 10.8 L, Hct 32.9 L, MCV 81.0, MCH 26.6, MCHC 32.8, RDW 14.2, Plt Count 350, MPV 8.4, Gran % 62.1, Lymph % (Auto) 29.0, [place] % (Auto) 7.9 H, Eos % (Auto) 0.4 L, Baso % (Auto) 0.6, Gran # 3.23, Lymph # (Auto) 1.5, [place] # (Auto) 0.4, Eos # (Auto) 0.0, Baso # (Auto) 0.03 - RAD Interpretation Radiology Orders: 07/08/17 12:34 obstructive series [ABD 2 VIEWS (FLAT/UP OR DECUB)] [RAD] Stat Engine Service Repairer: Radiologist - Medication Orders Current Medication Orders: Discontinued Medications Ciprofloxacin (Cipro) 500 mg PO ONCE STA PRN Reason: Protocol Stop: 07/08/17 14:18 Docusate Sodium (Colace Liquid) 200 mg PO ONCE ONE Stop: 07/08/17 13:50 Last Admin: 07/08/17 14:01 Dose: 200 mg Sodium Chloride (Sodium Chloride 0.9%) 1,000 mls @ 999 mls/hr IV .Q1H1M STA Stop: 07/08/17 13:34 Last Admin: 07/08/17 12:58 Dose: 999 mls/hr eMAR Start Stop Document 07/08/17 12:58 SZA (Rec: 07/08/17 12:59 SZA [id number]) Intravenous Solution Start Date 07/08/17 Start Time 12:50 End Date 07/08/17 End time 13:50 Total Infusion Time 60 Lactulose (Enulose) 20 gm PO ONCE STA Stop: 07/08/17 13:51 Last Admin: 07/08/17 14:01 Dose: 20 gm - Scribe Statement The provider has reviewed the documentation as recorded by the Susanaibtyson Horta. All medical record entries made by the Susanaibtyson were at my direction and personally dictated by me. I have reviewed the chart and agree that the record accurately reflects my personal performance of the history, physical exam, medical decision making, and the department course for this patient. I have also personally directed, reviewed, and agree with the discharge instructions and disposition. Disposition/Present on Arrival - Present on Arrival Any Indicators Present on Arrival: No History of DVT/PE: No History of Uncontrolled Diabetes: No Urinary Catheter: No History of Decub. Ulcer: No History Surgical Site Infection Following: None - Disposition Have Diagnosis and Disposition been Completed?: Yes Diagnosis: Constipation, Dehydration, Urinary tract infection Disposition: HOME/ ROUTINE Disposition Time: 14:24 Patient Plan: Discharge Patient Problems: Current Active Problems Problem Status Onset Constipation Acute Dehydration Acute UTI (urinary tract infection) Acute Condition: IMPROVED Discharge Instructions (ExitCare): Urinary Tract Infections in Adults, Constipation, Adult (DC), Dehydration, Adult (DC) Print Language: TUNISIAN Additional Instructions: constipation ; include more wate rin her diet in between meals . She should be drinking at least 1.5 - 2 L daily to soften stools and facilitate smoother easier bowel movements . blending food to its absolute smoothest liquid consistency including more fruits and vegatbels in such blends will also increase roughage content of stools and faclitate easier bm's. dehydration :1.5 - 2.0 L daily down peg tube uti: take antiobiotics as prescribed Prescriptions: Ciprofloxacin HCl [Cipro] 500 mg PO BID #6 tablet Lactulose 10 gm PO DAILY PRN 10 Days solution PRN Reason: Constipation Senna [Senokot Syrup] 8.8 mg PO HS PRN 14 Days dose PRN Reason: Constipation Referrals: Ramy Napier MD [Staff Provider] - Follow up with primary Forms: [employer]isc[employer] (Bulgarian)
[2017-07-08 13:04] LABS: BASO # 0.03 K/mm3 (0.0-2.0); BASO % 0.6 % (0.0-3.0); EOS % 0.4 % (1.5-5.0); GRAN # 3.23 (1.4-6.5); GRAN % 62.1 % (50.0-68.0); HEMOGLOBIN 10.8 g/dL (12.0-16.0); LYMPH # 1.5 (1.2-3.4); MEAN CORPUSCULAR HEMOGLOBIN 26.6 pg (25.0-35.0); MEAN CORPUSCULAR HGB CONC 32.8 g/dl (31.0-37.0); MEAN PLATELET VOLUME 8.4 fl (7.0-11.0); MONO # 0.4 (0.1-0.6); MONO % 7.9 % (1.0-6.0); RBC 4.06 10^6/uL (3.5-6.1); RED CELL DISTRIBUTION WIDTH 14.2 % (11.5-14.5); WHITE BLOOD COUNT 5.2 10^3/ul (4.5-11.0)
[2017-07-08 13:32] LABS: ALBUMIN 3.7 g/dL (3.0-4.8); ALT/SGPT 23 U/L (7-56); AST/SGOT 24 U/L (14-36); BLOOD UREA NITROGEN 11 mg/dL (7-21); CALCIUM 8.8 mg/dL (8.4-10.5); GFR AFRICAN-AMERICAN > 60; GFR NON-AFRICAN AMERICAN > 60
--- NOTE | 2017-07-08 13:37 | RAD ---
HISTORY: Small-bowel obstruction suspected. COMPARISON: 06/01/2017. CT abdomen and pelvis FINDINGS: BOWEL: Constipation without fecal impaction or obstruction. BONES: Normal. OTHER FINDINGS: Gastrostomy tube identified. IMPRESSION: No significant or acute findings to account for/ related to the clinical presentation.
[2017-07-08 15:18] LABS: PH,URINE 7.5 (4.7-8.0); URINE BILIRUBIN NEGATIVE (NEGATIVE); URINE BLOOD NEGATIVE (NEGATIVE); URINE GLUCOSE (UA) NEGATIVE (NEGATIVE); URINE LEUKOCYTE ESTERASE NEGATIVE Leu/uL (NEGATIVE); URINE PROTEIN NEGATIVE mg/dL (<30 mg/dL); URINE UROBILINOGEN 0.2 E.U./dL (<1 E.U./dL)
[2017-07-08 15:20] LABS: URINE APPEARANCE CLEAR (CLEAR); URINE COLOR YELLOW (YELLOW)
[2017-07-08 17:43] VITALS: BP 144/90; PULSE 68; RESP 18; TEMP 97.7
[2017-07-08 20:58] VITALS: O2SAT 100
== END 2017-07-08 20:56 | disposition home or self-care (01) ==
LOC: ED 11:57
DX: K59.00 Constipation, unspecified (principal); E86.0 Dehydration; N39.0 Urinary tract infection, site not specified; K21.9 Gastro-esophageal reflux disease without esophagitis; I10 Essential (primary) hypertension; E11.9 Type 2 diabetes mellitus without complications; Z93.1 Gastrostomy status
CPT/HCPCS: 74019; 80053; 81003; 85025; 87086; 96360; 99285; J7040

== ENCOUNTER 2017-07-10 11:24 | Observation (INO) | payer MEDICARE, OTHER ==
[2017-07-10 11:24] VITALS: BMI 19.5
[2017-07-10] MEDS ORDERED: Magnesium Citrate Oral SOL (300 ml) PEG ONE (11:46)
[2017-07-10] MEDS ORDERED: Mineral Oil Enema 135 ml RC ONE (11:47)
[2017-07-10] MEDS ORDERED: Peg-Electrolyte Oral Soln 4L (Golytely) PEG ONE (11:48)
--- NOTE | 2017-07-10 11:54 | ED PDOC ---
Arrival/HPI - General Chief Complaint: GI Problem Time Seen by Provider: 07/10/17 11:37 Historian: Patient, EMS - History of Present Illness Narrative History of Present Illness (Text): 07/10/17 11:51 pt p/w + days onset of continued constipation and continued complaint of dysphagia/throat pain; pt has been to the Emergency department on multiple occasions for complaints of dysphagia/throat pain and with extensive workups in the recent past; pt had received PEG tube placement but now developed constipation; pt states very small amounts of stool comes out; pt states abd pain, no vomiting, no other medical complaints; pt denied fever/sweats, no cp/ sob, pt denied bleeding; pt denied urinary changes; pt denied any at home stressors; pt arrived to the Emergency department for further eval; pt's without other complaints PCP: CRYSTAL/Quyen? Time/Duration: < week Symptom Onset: Gradual Symptom Course: Intermittent Quality: Cramping Severity Level: Severe Activities at Onset: Rest Context: Home Past Medical History - Provider Review Nursing Documentation Reviewed: Yes - Travel History Have you recently traveled outside [place] w/in the past 3 mons?: No - Past History Past History: No Previous - Infectious Disease Hx of Infectious Diseases: None - Tetanus Immunization Tetanus Immunization: Unknown - Reproductive Menopause: Yes Currently : No - Past Medical History Past Medical History: Non-Contributing - Cardiac Hx Cardiac Disorders: Yes Hx Hypertension: Yes - Pulmonary Hx Respiratory Disorders: No - Neurological Hx Neurological Disorder: No - HEENT Hx Difficulty Chewing: Yes Hx Glaucoma: Yes - Renal Hx Renal Disorder: No - Endocrine/Metabolic Hx Diabetes Mellitus Type 2: Yes Hx Hypothyroidism: Yes - Hematological/Oncological Hx Blood Disorders: No Hx AIDS: No Hx Anemia: No Hx Cancer: No Hx Chemotherapy: No Hx Cirrhosis: No Hx Hepatitis A: No Hx Hepatitis B: No Hx Hepatitis C: No Hx Metastasis: No Hx Shingles: No Hx Unexplained Bleeding: No - Integumentary Hx Dermatological Disorder: Yes - Musculoskeletal/Rheumatological Hx Falls: No (long tie ago) - Gastrointestinal Hx Gastrointestinal Disorders: Yes (weight loss) HX Swallowing Problems: Yes (sore throat) - Genitourinary/Gynecological Hx Genitourinary Disorders: No - Psychiatric Hx Anxiety: Yes Hx Bipolar Disorder: Yes Hx Depression: Yes Hx Panic Disorder: Yes Hx Substance Use: No - Past Surgical History Past Surgical History: No Previous - Surgical History Hx Cardiac Catheterization: Yes Hx Coronary Stent: No - Anesthesia Hx Anesthesia Reactions: No Hx Malignant Hyperthermia: No - Suicidal Assessment Feels Threatened In Home Enviroment: No Family/Social History - Physician Review Nursing Documentation Reviewed: Yes Family/Social History: No Known Family HX Smoking Status: Never Smoked Hx Alcohol Use: No Hx Substance Use: No Hx Substance Use Treatment: No Allergies/Home Meds Allergies/Adverse Reactions: Allergies No Known Allergies Allergy (Verified 07/08/17 12:10) Home Medications: Home Meds Medication Instructions Recorded Confirmed Levothyroxine [Synthroid] 50 mcg PO DAILY 03/09/15 06/09/17 Pantoprazole Sodium [Protonix] 40 mg PO DAILY 05/24/17 06/09/17 Review of Systems - Review of Systems Constitutional: Fatigue Eyes: Normal ENT: Other (throat pain/difficulty swallowing). absent: Hearing Changes, Sore Throat, Rhinorrhea Respiratory: Normal. absent: SOB Cardiovascular: Normal. absent: Chest Pain Gastrointestinal: Abdominal Pain, Constipation Genitourinary Female: Normal Musculoskeletal: Normal Skin: Normal Neurological: Normal Endocrine: Normal Hemo/Lymphatic: Normal Psychiatric: Anxiety Physical Exam - Physical Exam Narrative Physical Exam (Text): 07/10/17 11:59 General: alert/awake, GCS = 15, oriented x 3, resting in bed, uncomfortable, cooperative, interactive; appearing anxious and agitated Head: NC/AT; bi-temporal wasting EYE: PERRLA, EOMI, sclera anicteric, no nystagmus, no photophobia Facial: WNL Oral: uvula/tongue are midline, no exudate/lesions, no drooling/stridor, no dysphonia; intact dentitions; dry oral mucosa NECK: intact ROM, no midline tenderness, no nuchal rigidity, no meningeal signs ; no step off Chest: CTA b/l, no w/r/r; no tachypenia, no accessory muscle use noted Cardiac: +S1, +S2, no m/r/r, no tachycardia Abdominal: very thin/malnourished patient, +BS, soft, + mild diffuse mid abd tenderness, no masses/rebound/guarding/rigidity; + PEG tube site left mid abd ( no underlying skin inflammation noted), no garcia's sign, no mcburney's point tenderness Extremities: intact ROM, strength 5-/5 grossly intact in all limbs, neurovasc intact b/l BACK: no step off, no midline tenderness, NO crepitus, no gross deformities noted; Intact ROM SKIN: cap refill ~ 1 sec, no ulcerations, no petechiae, no rashes NEURO: CNII-XII WNL, no facial asymmetries, no slurr speech, oriented x 3 Psych: normal insight, anxious; follows command with ease Vital Signs Reviewed: Yes Vital Signs Temp Pulse Resp BP Pulse Ox 07/10/17 14:50 89 16 128/81 98 07/10/17 11:25 98.2 F 58 L 18 146/86 100 Temperature: Afebrile Blood Pressure: Hypertensive (mild) Pulse: Regular Respiratory Rate: Normal Appearance: Positive for: Well-Appearing, Ill-Appearing, Uncomfortable, Cachectic Pain Distress: None Mental Status: Positive for: Alert and Oriented X 3 - Systems Exam Head: Present: Atraumatic, Normocephalic Medical Decision Making ED Course and Treatment: 07/10/17 11:50 Impression: constipation; dysphagia i have consider all the differential diagnosis regarding pt's chief medical complaints/clinical findings, including but are not limited to: constipation, dysphagia; dehydration, abnl electrolytes A/P: constipation, dysphagia - labs - iv - xray - ua - supportive care - observe/reevaluation 1300 kitchen cath placement - noted ~ 1 L of urine immediately removed from the patient ; pt felt improvement pt continues to have constipation feelings pt continues to complain about dsyphagia/throat pain no family at bedside currently given pt's medical findings, will recommend patient for admission, particularly pt's abnl Na level 07/10/17 13:55 made aware of patient's emergent complaints, diagnostic finds, and emergency department management. Is agreeable with emergency department recommendation for admission/observation placement. pt is made aware of her medical results agrees with admission 1630 pt's daughter is currently at bedside, made aware of pt's medical results agrees with admission Re-evaluation Time: 15:00 Reassessment Condition: Unchanged - Lab Interpretations Lab Results: 07/10/17 12:08 07/10/17 12:08 Lab Results 07/10/17 13:03: Urine Color Yellow, Urine Appearance Clear, Urine pH 7.5, Ur Specific [place] 1.010, Urine Protein Negative, Urine Glucose (UA) Negative, Urine Ketones Negative, Urine Blood Negative, Urine Nitrate Negative, Urine Bilirubin Negative, Urine Urobilinogen 0.2, Ur Leukocyte Esterase Negative 07/10/17 12:08: Sodium 121 L, Chloride 81 L, Potassium 4.3, Carbon Dioxide 29, Anion Gap 15, BUN 6 L, Creatinine 0.4 L, Est GFR ( Amer) > 60, Est GFR ( Non-Af Amer) > 60, Random Glucose 113 H, Calcium 8.9, Total Bilirubin 0.3, AST 32, ALT 25, Alkaline Phosphatase 106, Total Protein 7.8, Albumin 4.1, Globulin 3.7, Albumin/Globulin Ratio 1.1, Lipase 53 07/10/17 12:08: pO2 38, VBG pH 7.39, VBG pCO2 55.0, VBG HCO3 33.3 H, VBG Total CO2 35.0 H, VBG O2 Sat (Calc) 75.8 H, VBG Base Excess 6.7 H, VBG Potassium 4.3, Sodium 118.0 L*, Chloride 83.0 L, Glucose 118 H, Lactate 0.8, FiO2 21.0, Venous Blood Potassium 4.3 07/10/17 12:08: WBC 8.8 D, RBC 4.20, Hgb 11.2 L, Hct 32.5 L, MCV 77.4 L D, MCH 26.7, MCHC 34.5, RDW 13.7, Plt Count 323, MPV 8.8, Gran % 80.1 H, Lymph % (Auto ) 13.0 L, [place] % (Auto) 6.7 H, Eos % (Auto) 0.1 L, Baso % (Auto) 0.1, Gran # 7.02 H, Lymph # (Auto) 1.1 L, [place] # (Auto) 0.6, Eos # (Auto) 0.0, Baso # (Auto ) 0.01 I have reviewed the lab results: Yes Interpretation: Abnormal lab values (decr NA) - RAD Interpretation Narrative RAD Interpretations (Text): 07/10/17 13:29 X-ray of Abdomen reviewed by radiologist, shows: FINDINGS: BOWEL: Moderate stool retention -less than before. No interval obstruction appreciated BONES: Scattered mild-moderate thoraco lumbar spondylosis. Generalized osteopenia OTHER FINDINGS: Gastrostomy tube position did over stomach and left upper quadrant IMPRESSION: No interval small or large bowel dilatation seen to suggest obstruction. On this semi-erect view no free air seen Gastrostomy tube positioning appears appropriate Stool retention -now moderate -less than before Radiology Orders: 07/10/17 11:47 obstructive series [ABD 2 VIEWS (FLAT/UP OR DECUB)] [RAD] Stat Salvage Engineer: Radiologist - EKG Interpretation EKG Interpretation (Text): 07/10/17 17:20 Sinus rhythm at 60 bpm, normal axis, + ectopy, non-specific st changes, ABNL EKG ; no gross changes compare with old ekg 06/2017 Interpreted by ED Physician: Yes Type: 12 lead EKG Comparison: Similar to previous EKG - Medication Orders Current Medication Orders: Sodium Chloride (Sodium Chloride 0.9%) 1,000 mls @ 100 mls/hr IV .Q10H LAUREN Last Admin: 07/10/17 16:28 Dose: 100 mls/hr eMAR Start Stop Document 07/10/17 16:28 HP (Rec: 07/10/17 16:28 [facility]-[id number]) Intravenous Solution Start Date 07/10/17 Start Time 16:28 End Date 07/10/17 End time 16:00 Total Infusion Time -28 Levothyroxine Sodium (Synthroid) 50 mcg PO DAILY LAUREN Discontinued Medications Magnesium Citrate (Citrate Of Mag) 300 ml PEG ONCE ONE Stop: 07/10/17 11:47 Last Admin: 07/10/17 12:18 Dose: 300 ml Mineral Oil (Fleet Mineral Oil Enema) 135 ml RC ONCE ONE Stop: 07/10/17 11:48 Last Admin: 07/10/17 12:18 Dose: 135 ml Polyethylene Glycol/Electrolytes (Golytely) 4,000 ml PEG ONCE ONE Stop: 07/10/17 11:49 Last Admin: 07/10/17 16:28 Dose: 4,000 ml Disposition/Present on Arrival - Present on Arrival Any Indicators Present on Arrival: No History of DVT/PE: No History of Uncontrolled Diabetes: No Urinary Catheter: No History of Decub. Ulcer: No History Surgical Site Infection Following: None - Disposition Have Diagnosis and Disposition been Completed?: Yes Diagnosis: Constipation, Intractable abdominal pain, Urinary retention, Hyponatremia, Dysphagia, Failure to thrive Disposition: HOSPITALIZED Disposition Time: 14:00 Patient Plan: Admission, Telemetry Condition: STABLE
[2017-07-10 12:13] LABS: VENOUS BLOOD GAS BASE EXCESS 6.7 mmol/L (0.0-2.0); VENOUS BLOOD GAS PO2 38 mm/Hg (30-55); VENOUS BLOOD PH 7.39 (7.32-7.43)
[2017-07-10 12:15] LABS: BASO # 0.01 K/mm3 (0.0-2.0); BASO % 0.1 % (0.0-3.0); EOS % 0.1 % (1.5-5.0); GRAN # 7.02 (1.4-6.5); GRAN % 80.1 % (50.0-68.0); HEMOGLOBIN 11.2 g/dL (12.0-16.0); LYMPH # 1.1 (1.2-3.4); MEAN CELL VOLUME 77.4 fl (80.0-105.0); MEAN CORPUSCULAR HEMOGLOBIN 26.7 pg (25.0-35.0); MEAN CORPUSCULAR HGB CONC 34.5 g/dl (31.0-37.0); MEAN PLATELET VOLUME 8.8 fl (7.0-11.0); MONO # 0.6 (0.1-0.6); MONO % 6.7 % (1.0-6.0); RBC 4.2 10^6/uL (3.5-6.1); RED CELL DISTRIBUTION WIDTH 13.7 % (11.5-14.5); WHITE BLOOD COUNT 8.8 10^3/ul (4.5-11.0)
[2017-07-10 12:22] LABS: ALB/GLOB RATIO 1.1 (1.1-1.8); ALBUMIN 4.1 g/dL (3.0-4.8); ALT/SGPT 25 U/L (7-56); AST/SGOT 32 U/L (14-36); BLOOD UREA NITROGEN 6 mg/dL (7-21); CALCIUM 8.9 mg/dL (8.4-10.5); GFR AFRICAN-AMERICAN > 60; GFR NON-AFRICAN AMERICAN > 60; LIPASE 53 U/L (23-300)
[2017-07-10 13:11] LABS: PH,URINE 7.5 (4.7-8.0); URINE BILIRUBIN NEGATIVE (NEGATIVE); URINE BLOOD NEGATIVE (NEGATIVE); URINE GLUCOSE (UA) NEGATIVE (NEGATIVE); URINE LEUKOCYTE ESTERASE NEGATIVE Leu/uL (NEGATIVE); URINE PROTEIN NEGATIVE mg/dL (<30 mg/dL); URINE UROBILINOGEN 0.2 E.U./dL (<1 E.U./dL)
[2017-07-10 13:14] LABS: URINE APPEARANCE CLEAR (CLEAR); URINE COLOR YELLOW (YELLOW)
--- NOTE | 2017-07-10 13:28 | RAD ---
HISTORY: constipation COMPARISON: 07/08/2017 FINDINGS: BOWEL: Moderate stool retention -less than before. No interval obstruction appreciated BONES: Scattered mild-moderate thoraco lumbar spondylosis. Generalized osteopenia OTHER FINDINGS: Gastrostomy tube position did over stomach and left upper quadrant IMPRESSION: No interval small or large bowel dilatation seen to suggest obstruction. On this semi-erect view no free air seen Gastrostomy tube positioning appears appropriate Stool retention -now moderate -less than before
[2017-07-10] MEDS: Sodium Chloride 0.9% 1,000 ML IV SCH ×2 (16:28→20:10)
[2017-07-10] MEDS: Levothyroxine 50 MCG TAB PO SCH (17:58)
[2017-07-10] MEDS ORDERED: Pneumococcal 23-Valent Vaccine IM ONE (21:39)
[2017-07-11 03:36] VITALS: RESP 18
[2017-07-11] MEDS: Sodium Chloride 0.9% 1,000 ML IV SCH (05:51)
[2017-07-11 06:21] LABS: HEMOGLOBIN 9.5 g/dL (12.0-16.0); MEAN CELL VOLUME 79.4 fl (80.0-105.0); MEAN CORPUSCULAR HEMOGLOBIN 26.5 pg (25.0-35.0); MEAN CORPUSCULAR HGB CONC 33.3 g/dl (31.0-37.0); MEAN PLATELET VOLUME 8.6 fl (7.0-11.0); RBC 3.59 10^6/uL (3.5-6.1); RED CELL DISTRIBUTION WIDTH 14.1 % (11.5-14.5); WHITE BLOOD COUNT 4.2 10^3/ul (4.5-11.0)
[2017-07-11 06:39] LABS: ALT/SGPT 20 U/L (7-56); AST/SGOT 17 U/L (14-36); BLOOD UREA NITROGEN 5 mg/dL (7-21); CALCIUM 8.3 mg/dL (8.4-10.5); GFR AFRICAN-AMERICAN > 60; GFR NON-AFRICAN AMERICAN > 60
--- NOTE | 2017-07-11 07:45 | CP.PCM.HP ---
<Susan Cosby - Last Filed: 07/11/17 10:18> History of Present Illness - History of Present Illness History of Present Illness: H&P for Cale Bueno PGY2 This is a 67yo female with past medical history of odynophagia, hyponatremia, peptic ulcer disease, hypothyroidism, anorexia, constipation who came to ED for urinary retention and constipation. Patient has been admitted for this several times in the past month. Patient states she has been only having very small hard BMs. She states she has abdominal pain at her G-tube and was noted to be picking and pulling at it on examination. She also reports some difficulty urinating. Patient is agitated on examination. She was given a laxative overnight and now has had multiple BMs. She denies chest pain, shortness of breath, nausea/vomiting/diarrhea, fever/chills, dysuria or hematuria. Past medical history: odynophagia, hyponatremia, peptic ulcer disease, hypothyroidism, anorexia, constipation Past surgical history: G-tube placement Home meds: As per MAR Allergies: NKDA Social history: Denies EtOH, drug or tobacco use. Lives with family Present on Admission - Present on Admission Any Indicators Present on Admission: No Review of Systems - Review of Systems All systems: reviewed and no additional remarkable complaints except Review of Systems: 12 point ROS reviewed as per HPI and is otherwise negative Past Patient History - Infectious Disease Hx of Infectious Diseases: None - Tetanus Immunizations Tetanus Immunization: Unknown - Past Social History Smoking Status: Unknown If Ever Smoked - CARDIAC Hx Cardiac Disorders: Yes Hx Hypertension: Yes - PULMONARY Hx Respiratory Disorders: No - NEUROLOGICAL Hx Neurological Disorder: No - HEENT Hx Difficulty Chewing: Yes Hx Glaucoma: Yes - RENAL Hx Chronic Kidney Disease: Yes (URINARY RETENTION 07-10-17) - ENDOCRINE/METABOLIC Hx Diabetes Mellitus Type 2: Yes Hx Hypothyroidism: Yes - HEMATOLOGICAL/ONCOLOGICAL Hx Blood Disorders: No Hx AIDS: No Hx Anemia: No Hx Cancer: No Hx Chemotherapy: No Hx Cirrhosis: No Hx Hepatitis A: No Hx Hepatitis B: No Hx Hepatitis C: No Hx Metastesis: No Hx Shingles: No Hx Unexplained Bleeding: No - INTEGUMENTARY Hx Dermatological Problems: Yes - MUSCULOSKELETAL/RHEUMATOLOGICAL Hx Musculoskeletal Disorders: Yes Hx Falls: Yes (long tiME ago) - GASTROINTESTINAL Hx Gastrointestinal Disorders: Yes (weight loss,GASTROPARESIS,DYSPHAGIA, GASTRITIS) HX Swallowing Problems: Yes (sore throat) - GENITOURINARY/GYNECOLOGICAL Hx Genitourinary Disorders: Yes (C/S X 2) - PSYCHIATRIC Hx Psychophysiologic Disorder: Yes Hx Anxiety: Yes Hx Bipolar Disorder: Yes Hx Depression: Yes Hx Panic Symptoms: Yes Hx Substance Use: No - SURGICAL HISTORY Hx Surgeries: Yes (PEG C/S X 2,CARD CATH) Hx Cardiac Catheterization: Yes Hx Coronary Stent: No - ANESTHESIA Hx Anesthesia Reactions: No Hx Malignant Hyperthermia: No Meds Allergies/Adverse Reactions: Allergies Allergy/AdvReac Type Severity Reaction Status Date / Time No Known Allergies Allergy Verified 07/10/17 19:16 Physical Exam - Constitutional Appears: Agitated, Cachectic - Head Exam Head Exam: ATRAUMATIC, NORMAL INSPECTION, NORMOCEPHALIC - Eye Exam Eye Exam: Normal appearance, PERRL Pupil Exam: NORMAL ACCOMODATION, PERRL - ENT Exam ENT Exam: Mucous Membranes Dry - Respiratory Exam Respiratory Exam: Clear to Auscultation Bilateral, NORMAL BREATHING PATTERN. absent: Rales, Rhonchi, Wheezes - Cardiovascular Exam Cardiovascular Exam: REGULAR RHYTHM, +S1, +S2. absent: Gallop, Rubs, Systolic Murmur - GI/Abdominal Exam GI & Abdominal Exam: Normal Bowel Sounds, Soft. absent: Rebound, Rigid, Tenderness Additional comments: G tube in place - Extremities Exam Extremities exam: Negative for: calf tenderness, pedal edema - Neurological Exam Neurological exam: Alert, CN II-XII Intact - Psychiatric Exam Psychiatric exam: Agitated - Skin Skin Exam: Dry, Warm Results - Vital Signs Recent Vital Signs: Last Vital Signs Temp 97.7 F 07/11/17 00:01 Pulse 59 L 07/11/17 06:00 Resp 18 07/11/17 00:01 BP 127/62 07/11/17 00:01 Pulse Ox 100 07/11/17 00:01 - Labs Result Diagrams: 07/11/17 06:00 07/11/17 06:00 Labs: Laboratory Results - last 24 hr 07/11/17 07/11/17 06:00 06:00 WBC 4.2 L D RBC 3.59 Hgb 9.5 L Hct 28.5 L MCV 79.4 L MCH 26.5 MCHC 33.3 RDW 14.1 Plt Count 266 MPV 8.6 Sodium 135 Potassium 4.1 Chloride 97 L Carbon Dioxide 27 Anion Gap 14 BUN 5 L Creatinine 0.5 L Est GFR ( Amer) > 60 Est GFR (Non-Af Amer) > 60 Random Glucose 78 Calcium 8.3 L Phosphorus 3.8 Magnesium 1.9 Total Bilirubin < 0.1 L AST 17 ALT 20 Alkaline Phosphatase 84 Total Protein 6.1 Albumin 3.0 Globulin 3.1 Albumin/Globulin Ratio 1.0 L Assessment & Plan - Assessment and Plan (Free Text) Assessment: This is a 67yo female with past medical history of odynophagia, hyponatremia, peptic ulcer disease, hypothyroidism, anorexia, constipation who was admitted for 1. Constipation (resolved) 2. Urinary retention 3. Hyponatremia (resolved) 4. Hypothyroidism Plan: Patient is now having BMs after given laxative. Imaging was reviewed. Hyponatremia has resolved after being given IV fluids. We will continue synthroid. Will remove kitchen catheter, if patient is able to void she will be discharged home. Patient is ambulatory. We will give her PO Xanax as needed for agitation. Case seen, discussed and reviewed with Cale Bueno PGY2 - Date & Time Date: 07/11/17 Time: :18 <Ramy Napier S - Last Filed: 07/11/17 21:34> Results - Vital Signs Recent Vital Signs: Last Vital Signs Temp 97.4 F L 07/11/17 06:00 Pulse 60 07/11/17 06:00 Resp 18 07/11/17 06:00 BP 96/44 L 07/11/17 06:00 Pulse Ox 99 07/11/17 06:00 - Labs Result Diagrams: 07/11/17 06:00 07/11/17 06:00 Labs: Laboratory Results - last 24 hr 07/11/17 07/11/17 06:00 06:00 WBC 4.2 L D RBC 3.59 Hgb 9.5 L Hct 28.5 L MCV 79.4 L MCH 26.5 MCHC 33.3 RDW 14.1 Plt Count 266 MPV 8.6 Sodium 135 Potassium 4.1 Chloride 97 L Carbon Dioxide 27 Anion Gap 14 BUN 5 L Creatinine 0.5 L Est GFR ( Amer) > 60 Est GFR (Non-Af Amer) > 60 Random Glucose 78 Calcium 8.3 L Phosphorus 3.8 Magnesium 1.9 Total Bilirubin < 0.1 L AST 17 ALT 20 Alkaline Phosphatase 84 Total Protein 6.1 Albumin 3.0 Globulin 3.1 Albumin/Globulin Ratio 1.0 L Assessment & Plan - Assessment and Plan (Free Text) Plan: Pt seen and examined. I have reviewed the note of the durable medical equipment technician and agree with it. I have discussed the assessment and plan with the resident. I have reviewed the patient's labs and medications. Pt had her kitchen taken out and she was able to urinate. Her Na has improved. Old records reviewed.
--- NOTE | 2017-07-11 08:10 | CARD ---
APPROVED REPORT EKG Measurement Heart [id number] <Conclusion> Sinus rhythm with premature supraventricular complexes Otherwise normal ECG
[2017-07-11 09:42] VITALS: BP 96/44; PULSE 60; TEMP 97.4; O2SAT 99
[2017-07-11] MEDS: Levothyroxine 50 MCG TAB PO SCH (11:06)
== END 2017-07-11 15:30 | disposition home health service (06) ==
LOC: ED 11:24 → ERH 13:55 → INTOOBSV 13:55 → ERH 15:16 → 3RSO 16:32
PROVIDERS: ADMIT Internal Medicine Nephrology; ATTEND Internal Medicine Nephrology
DX: R13.10 Dysphagia, unspecified (principal); K59.00 Constipation, unspecified; I12.9 Hypertensive chronic kidney disease with stage 1 through stage 4 chronic kidney disease, or unspecified chronic kidney disease; N18.9 Chronic kidney disease, unspecified; R33.9 Retention of urine, unspecified; K31.84 Gastroparesis; E03.9 Hypothyroidism, unspecified; E11.22 Type 2 diabetes mellitus with diabetic chronic kidney disease; E11.43 Type 2 diabetes mellitus with diabetic autonomic (poly)neuropathy; E87.1 Hypo-osmolality and hyponatremia; F31.9 Bipolar disorder, unspecified; F41.0 Panic disorder [episodic paroxysmal anxiety]; H40.9 Unspecified glaucoma; R62.7 Adult failure to thrive; Z87.11 Personal history of peptic ulcer disease
CPT/HCPCS: 36415; 74019; 80053; 81003; 82803; 83690; 83735; 84100; 85025; 85027; 93005; 99285; G0378; J7040

== ENCOUNTER 2017-07-14 17:54 | Observation (INO) | payer MEDICARE, OTHER ==
[2017-07-14] MEDS ORDERED: Sodium Chloride 0.9% 1,000 ML IV STA (18:31)
--- NOTE | 2017-07-14 18:41 | ED PDOC ---
Arrival/HPI - General Chief Complaint: GI Problem Time Seen by Provider: 07/14/17 18:15 Historian: Patient - History of Present Illness Narrative History of Present Illness (Text): 07/14/17 18:22 A 67 year old female, whose past medical history includes , presents to the emergency department complaining of abdominal pain, epistaxis, and throat pain. Patient reports throat pain occurs when swallowing. Notes also experiencing dysuria. Patient denies any other complaints at this time. No PMD Past Medical History - Provider Review Nursing Documentation Reviewed: Yes - Past History Past History: No Previous - Infectious Disease Hx of Infectious Diseases: None - Tetanus Immunization Tetanus Immunization: Unknown - Reproductive Menopause: Yes - Past Medical History Past Medical History: Non-Contributing - Cardiac Hx Cardiac Disorders: Yes Hx Hypertension: Yes - Pulmonary Hx Respiratory Disorders: No - Neurological Hx Neurological Disorder: No - HEENT Hx Difficulty Chewing: Yes Hx Glaucoma: Yes - Renal Hx Renal Disorder: Yes (URINARY RETENTION 07-10-17) - Endocrine/Metabolic Hx Diabetes Mellitus Type 2: Yes Hx Hypothyroidism: Yes - Hematological/Oncological Hx Blood Disorders: No Hx AIDS: No Hx Anemia: No Hx Cancer: No Hx Chemotherapy: No Hx Cirrhosis: No Hx Hepatitis A: No Hx Hepatitis B: No Hx Hepatitis C: No Hx Metastasis: No Hx Shingles: No Hx Unexplained Bleeding: No - Integumentary Hx Dermatological Disorder: Yes - Musculoskeletal/Rheumatological Hx Musculoskeletal Disorders: Yes Hx Falls: Yes (long tiME ago) - Gastrointestinal Hx Gastrointestinal Disorders: Yes (weight loss,GASTROPARESIS,DYSPHAGIA, GASTRITIS) HX Swallowing Problems: Yes (sore throat) Other/Comment: hyponatremia,peptic ulcer , peg tube - Genitourinary/Gynecological Hx Genitourinary Disorders: Yes (C/S X 2) - Psychiatric Hx Psychophysiologic Disorder: Yes Hx Anxiety: Yes Hx Bipolar Disorder: Yes Hx Depression: Yes Hx Panic Disorder: Yes Hx Substance Use: No - Past Surgical History Past Surgical History: No Previous - Surgical History Hx Cardiac Catheterization: Yes Hx Coronary Stent: No - Anesthesia Hx Anesthesia Reactions: No Hx Malignant Hyperthermia: No - Suicidal Assessment Feels Threatened In Home Enviroment: No Family/Social History - Physician Review Nursing Documentation Reviewed: Yes Family/Social History: No Known Family HX Smoking Status: Unknown If Ever Smoked Hx Alcohol Use: No Hx Substance Use: No Hx Substance Use Treatment: No Allergies/Home Meds Allergies/Adverse Reactions: Allergies No Known Allergies Allergy (Verified 07/10/17 19:16) Home Medications: Home Meds Medication Instructions Recorded Confirmed Levothyroxine [Synthroid] 50 mcg PO DAILY 03/09/15 07/14/17 Review of Systems - Physician Review All systems were reviewed & negative as marked: Yes - Review of Systems ENT: Epistaxis, Other (throat pain occurs when swallowing) Gastrointestinal: Abdominal Pain Genitourinary Female: Dysuria Physical Exam Vital Signs Reviewed: Yes Vital Signs Temp Pulse Resp BP Pulse Ox 07/15/17 02:25 49 L 16 117/54 L 100 07/14/17 23:35 58 L 17 132/82 100 07/14/17 18:11 98.0 F 86 18 154/94 H 97 Temperature: Afebrile Blood Pressure: Hypertensive Pulse: Regular Respiratory Rate: Normal Appearance: Positive for: Well-Appearing Pain Distress: None Mental Status: Positive for: Alert and Oriented X 3 - Systems Exam Head: Present: Atraumatic, Normocephalic Nose (Internal): Present: Other (epistaxis) Respiratory/Chest: Present: Clear to Auscultation Cardiovascular: Present: Regular Rate and Rhythm, Normal S1, S2. No: Murmurs Abdomen: Present: Distention. No: Normal Bowel Sounds, Other (not tender to palpation) Upper Extremity: Present: Normal Inspection. No: Cyanosis, Edema Lower Extremity: Present: Normal Inspection. No: Edema Neurological: Present: GCS=15, CN II-XII Intact, Speech Normal Skin: Present: Warm, Dry, Normal Color. No: Rashes Psychiatric: Present: Alert, Oriented x 3, Normal Insight, Normal Concentration Medical Decision Making ED Course and Treatment: 07/14/17 18:27 Impression: 67 year old female with abdominal pain, epistaxis, throat pain when swallowing, and dysuria. Plan: -- EKG -- Chest X-ray -- Abdominal X-Ray -- Labs -- Urinalysis -- Blood Culture -- Urine Culture -- IV Fluids -- Venous Blood Gas -- Reassess and disposition Prior Visits: Notes and results from previous visits were reviewed. Patient was last seen in the emergency department on 07/10/2017 for dysphagia and throat pain. Patient was admitted. Progress Notes: EKG: Ordered, reviewed, and independently interpreted the EKG. Rate : 61 BPM Rhythm : NSR Interpretation : No ST-segment elevations or depressions, no T-wave inversions, normal intervals. Comparison : No previous EKG for comparison. 07/14/17 22:27 Patient will not let any one put any contrast in her G-tube and is trying to scratch and bite the nurse. Patient is screaming uncontrollably. Patient will be getting 2ml Ativan so she can tolerate procedure. Patient signed out to Dr. Argueta at this time. Pending CT, Reassess, and disposition - Lab Interpretations Microbiology Results: Microbiology Results 07/14/17 19:00 Urine,Clean Catch Urine Culture - Final No Growth (<1,000 CFU/ML) 07/14/17 19:30 Blood-Venous Blood Culture - Preliminary NO GROWTH AFTER 24 HOURS 07/14/17 19:00 Blood-Venous Blood Culture - Preliminary NO GROWTH AFTER 24 HOURS Lab Results: 07/14/17 19:00 07/14/17 19:00 Lab Results 07/14/17 19:00: pO2 184 H, VBG pH 7.40, VBG pCO2 43.0, VBG HCO3 26.6, VBG Total CO2 27.9, VBG O2 Sat (Calc) 99.8 H, VBG Base Excess 1.5, VBG Potassium 3.7, Sodium 127.0 L, Chloride 97.0 L, Glucose 118 H, Lactate 1.1, FiO2 21.0, Venous Blood Potassium 3.7 07/14/17 19:00: Urine Color Colorless, Urine Appearance Clear, Urine pH 6.5, Ur Specific [place] <= 1.005, Urine Protein Negative, Urine Glucose (UA) Negative, Urine Ketones Negative, Urine Blood Negative, Urine Nitrate Negative, Urine Bilirubin Negative, Urine Urobilinogen 0.2, Ur Leukocyte Esterase Negative 07/14/17 19:00: Sodium 128 L, Chloride 95 L, Potassium 3.7, Carbon Dioxide 25, Anion Gap 12, BUN 7, Creatinine 0.4 L, Est GFR ( Amer) > 60, Est GFR (Non -Af Amer) > 60, Random Glucose 115 H, Calcium 8.1 L, Total Bilirubin < 0.1 L, AST 19, ALT 14, Alkaline Phosphatase 78, Lactate Dehydrogenase 317 L, Total Creatine Kinase 49, Troponin I < 0.01, Total Protein 6.7, Albumin 3.4, Globulin 3.3, Albumin/Globulin Ratio 1.0 L, Lipase 97 07/14/17 19:00: PT 11.5, INR 1.01 07/14/17 19:00: WBC 5.8 D, RBC 3.37 L, Hgb 9.1 L, Hct 27.3 L, MCV 81.0, MCH 27.0, MCHC 33.3, RDW 14.3, Plt Count 204, MPV 9.4, Gran % 63.3, Lymph % (Auto) 25.2, [place] % (Auto) 10.1 H, Eos % (Auto) 0.7 L, Baso % (Auto) 0.7, Gran # 3.69, Lymph # (Auto) 1.5, [place] # (Auto) 0.6, Eos # (Auto) 0.0, Baso # (Auto) 0.04 - RAD Interpretation Radiology Orders: 07/14/17 18:27 CHEST PORTABLE [RAD] Stat ABDOMEN PORTABLE 2 VIEWS [RAD] Stat 07/14/17 21:26 ABDOMEN & PELVIS [ABD PELVIS PO & IV CONTRAST] [CT] Stat - Medication Orders Current Medication Orders: Sodium Chloride (Sodium Chloride 0.45%) 1,000 mls @ 80 mls/hr IV .[id number] [facility] Last Admin: 07/15/17 23:55 Dose: 80 mls/hr eMAR Start Stop Document 07/15/17 23:55 MP (Rec: 07/15/17 23:56 MP [id number]) Intravenous Solution Start Date 07/15/17 Start Time 23:56 Levothyroxine Sodium (Synthroid) 50 mcg PO DAILY [facility] Last Admin: 07/16/17 09:28 Dose: 50 mcg Polyethylene Glycol (Miralax) 17 gm PEG TID [facility] Last Admin: 07/16/17 09:28 Dose: 17 gm Discontinued Medications Sodium Chloride (Sodium Chloride 0.9%) 1,000 mls @ 999 mls/hr IV .Q1H1M STA Stop: 07/14/17 19:31 Last Admin: 07/14/17 19:00 Dose: 999 mls/hr eMAR Start Stop Document 07/14/17 19:00 ALEX (Rec: 07/14/17 19:22 ALEX [email or web address]) Intravenous Solution Start Date 07/14/17 Start Time 19:00 End Date 07/14/17 End time 20:00 Total Infusion Time 60 Lorazepam (Ativan) 2 mg IVP ONCE ONE PRN Reason: Protocol Stop: 07/14/17 22:23 Last Admin: 07/14/17 22:26 Dose: 2 mg IVP Administration Document 07/14/17 22:26 IT (Rec: 07/14/17 22:26 IT [id number]) Charges for Administration # of IVP Administrations 1 Magnesium Citrate (Citrate Of Mag) 300 ml PO ONCE ONE Stop: 07/14/17 20:37 Last Admin: 07/14/17 22:07 Dose: Polyethylene Glycol (Miralax) 17 gm PEG DAILY LAUREN Last Admin: 07/15/17 09:17 Dose: 17 gm - Scribe Statement The provider has reviewed the documentation as recorded by the Raul Lo Provider Scribe Attestation: All medical record entries made by the Susanaibtyson were at my direction and personally dictated by me. I have reviewed the chart and agree that the record accurately reflects my personal performance of the history, physical exam, medical decision making, and the department course for this patient. I have also personally directed, reviewed, and agree with the discharge instructions and disposition. Disposition/Present on Arrival - Present on Arrival Any Indicators Present on Arrival: No History of DVT/PE: No History of Uncontrolled Diabetes: No Urinary Catheter: No History of Decub. Ulcer: No History Surgical Site Infection Following: None - Disposition Have Diagnosis and Disposition been Completed?: Yes Diagnosis: Constipation, Abdominal pain Disposition: HOSPITALIZED Disposition Time: 23:00 Patient Plan: Admission Patient Problems: Current Active Problems Problem Status Onset Abdominal pain Acute Constipation Acute Condition: GOOD
[2017-07-14 19:25] LABS: BASO # 0.04 K/mm3 (0.0-2.0); BASO % 0.7 % (0.0-3.0); EOS % 0.7 % (1.5-5.0); GRAN # 3.69 (1.4-6.5); GRAN % 63.3 % (50.0-68.0); HEMOGLOBIN 9.1 g/dL (12.0-16.0); LYMPH # 1.5 (1.2-3.4); LYMPH % 25.2 % (22.0-35.0); MEAN CORPUSCULAR HGB CONC 33.3 g/dl (31.0-37.0); MEAN PLATELET VOLUME 9.4 fl (7.0-11.0); MONO # 0.6 (0.1-0.6); MONO % 10.1 % (1.0-6.0); RBC 3.37 10^6/uL (3.5-6.1); RED CELL DISTRIBUTION WIDTH 14.3 % (11.5-14.5); WHITE BLOOD COUNT 5.8 10^3/ul (4.5-11.0)
[2017-07-14 19:28] LABS: VENOUS BLOOD GAS BASE EXCESS 1.5 mmol/L (0.0-2.0); VENOUS BLOOD GAS PO2 184 mm/Hg (30-55)
[2017-07-14 19:39] LABS: INR 1.01 (0.93-1.08); PROTHROMBIN TIME 11.5 SECONDS (9.4-12.5)
[2017-07-14 19:42] LABS: PH,URINE 6.5 (4.7-8.0); URINE BILIRUBIN NEGATIVE (NEGATIVE); URINE BLOOD NEGATIVE (NEGATIVE); URINE GLUCOSE (UA) NEGATIVE (NEGATIVE); URINE LEUKOCYTE ESTERASE NEGATIVE Leu/uL (NEGATIVE); URINE PROTEIN NEGATIVE mg/dL (<30 mg/dL); URINE UROBILINOGEN 0.2 E.U./dL (<1 E.U./dL)
[2017-07-14 19:43] LABS: URINE APPEARANCE CLEAR (CLEAR); URINE COLOR COLORLESS (YELLOW)
[2017-07-14 19:47] LABS: TROPONIN I < 0.01 ng/mL
[2017-07-14 19:49] LABS: ALBUMIN 3.4 g/dL (3.0-4.8); ALT/SGPT 14 U/L (7-56); AST/SGOT 19 U/L (14-36); BLOOD UREA NITROGEN 7 mg/dL (7-21); CALCIUM 8.1 mg/dL (8.4-10.5); GFR AFRICAN-AMERICAN > 60; GFR NON-AFRICAN AMERICAN > 60; LIPASE 97 U/L (23-300)
[2017-07-14] MEDS ORDERED: Magnesium Citrate Oral SOL (300 ml) PO ONE (20:36)
[2017-07-14] MEDS ORDERED: Iohexol 240 (50 ml) ONE (21:45)
--- NOTE | 2017-07-15 00:02 | ED PDOC ---
Physical Exam Vital Signs Temp Pulse Resp BP Pulse Ox 07/14/17 23:35 58 L 17 132/82 100 07/14/17 18:11 98.0 F 86 18 154/94 H 97 Medical Decision Making ED Course and Treatment: 07/14/17 23:43 Case endorsed to me by Dr. Martinez pending CT Abd & Pelvis. Patient has a history of constipation for the past few days with some abdominal discomfort. Patient had similar symptoms in the past. Patient denies any vomiting. Case was discussed with Dr. Beckwith earlier by Dr. Martinez who request CT prior to admission. EXAM: CT Abdomen and Pelvis With Intravenous Contrast Dictated and Authenticated by: Stephen Coronado MD 07/15/2017 1:42 AM IMPRESSION: 1. Large amount of stool throughout entire colon. Correlate for severe constipation. 2. Diffuse bladder wall thickening. Foci of gas anteriorly and bladder. Correlate for cystitis versus recent Daniel catheter. 3. Remainder of findings as above. 07/15/17 01:[address] Beckwith who is aware of the CT results and agrees with the plan. Accepts patient for Dr. Napier service for constipation and abdominal pain. - Lab Interpretations Lab Results: 07/14/17 19:00 07/14/17 19:00 Lab Results 07/14/17 19:00: pO2 184 H, VBG pH 7.40, VBG pCO2 43.0, VBG HCO3 26.6, VBG Total CO2 27.9, VBG O2 Sat (Calc) 99.8 H, VBG Base Excess 1.5, VBG Potassium 3.7, Sodium 127.0 L, Chloride 97.0 L, Glucose 118 H, Lactate 1.1, FiO2 21.0, Venous Blood Potassium 3.7 07/14/17 19:00: Urine Color Colorless, Urine Appearance Clear, Urine pH 6.5, Ur Specific [place] <= 1.005, Urine Protein Negative, Urine Glucose (UA) Negative, Urine Ketones Negative, Urine Blood Negative, Urine Nitrate Negative, Urine Bilirubin Negative, Urine Urobilinogen 0.2, Ur Leukocyte Esterase Negative 07/14/17 19:00: Sodium 128 L, Chloride 95 L, Potassium 3.7, Carbon Dioxide 25, Anion Gap 12, BUN 7, Creatinine 0.4 L, Est GFR ( Amer) > 60, Est GFR (Non -Af Amer) > 60, Random Glucose 115 H, Calcium 8.1 L, Total Bilirubin < 0.1 L, AST 19, ALT 14, Alkaline Phosphatase 78, Lactate Dehydrogenase 317 L, Total Creatine Kinase 49, Troponin I < 0.01, Total Protein 6.7, Albumin 3.4, Globulin 3.3, Albumin/Globulin Ratio 1.0 L, Lipase 97 07/14/17 19:00: PT 11.5, INR 1.01 07/14/17 19:00: WBC 5.8 D, RBC 3.37 L, Hgb 9.1 L, Hct 27.3 L, MCV 81.0, MCH 27.0, MCHC 33.3, RDW 14.3, Plt Count 204, MPV 9.4, Gran % 63.3, Lymph % (Auto) 25.2, [place] % (Auto) 10.1 H, Eos % (Auto) 0.7 L, Baso % (Auto) 0.7, Gran # 3.69, Lymph # (Auto) 1.5, [place] # (Auto) 0.6, Eos # (Auto) 0.0, Baso # (Auto) 0.04 - RAD Interpretation Radiology Orders: 07/14/17 18:27 CHEST PORTABLE [RAD] Stat ABDOMEN PORTABLE 2 VIEWS [RAD] Stat 07/14/17 21:26 ABDOMEN & PELVIS [ABD PELVIS PO & IV CONTRAST] [CT] Stat - Medication Orders Current Medication Orders: Sodium Chloride (Sodium Chloride 0.45%) 1,000 mls @ 80 mls/hr IV .[id number] LAUREN Last Admin: 07/15/17 01:59 Dose: 80 mls/hr eMAR Start Stop Document 07/15/17 01:59 IT (Rec: 07/15/17 01:59 IT [id number]) Intravenous Solution Start Date 07/15/17 Start Time 01:59 Levothyroxine Sodium (Synthroid) 50 mcg PO DAILY LAUREN Polyethylene Glycol (Miralax) 17 gm PEG DAILY LAUREN Discontinued Medications Sodium Chloride (Sodium Chloride 0.9%) 1,000 mls @ 999 mls/hr IV .Q1H1M STA Stop: 07/14/17 19:31 Last Admin: 07/14/17 19:00 Dose: 999 mls/hr eMAR Start Stop Document 07/14/17 19:00 ALEX (Rec: 07/14/17 19:22 ALEX [id number]) Intravenous Solution Start Date 07/14/17 Start Time 19:00 End Date 07/14/17 End time 20:00 Total Infusion Time 60 Lorazepam (Ativan) 2 mg IVP ONCE ONE PRN Reason: Protocol Stop: 07/14/17 22:23 Last Admin: 07/14/17 22:26 Dose: 2 mg IVP Administration Document 07/14/17 22:26 IT (Rec: 07/14/17 22:26 IT [id number]) Charges for Administration # of IVP Administrations 1 Magnesium Citrate (Citrate Of Mag) 300 ml PO ONCE ONE Stop: 07/14/17 20:37 Last Admin: 07/14/17 22:07 Dose: - Scribe Statement The provider has reviewed the documentation as recorded by the Raul Snyder Provider Scribe Attestation: All medical record entries made by the Scribe were at my direction and personally dictated by me. I have reviewed the chart and agree that the record accurately reflects my personal performance of the history, physical exam, medical decision making, and the department course for this patient. I have also personally directed, reviewed, and agree with the discharge instructions and disposition. Disposition/Present on Arrival - Present on Arrival Any Indicators Present on Arrival: No History of DVT/PE: No History of Uncontrolled Diabetes: No Urinary Catheter: No History of Decub. Ulcer: No History Surgical Site Infection Following: None - Disposition Have Diagnosis and Disposition been Completed?: Yes Diagnosis: Constipation, Abdominal pain Disposition: HOSPITALIZED Disposition Time: 02:10 Condition: GOOD Forms: [employer] (Albanian)
[2017-07-15] MEDS ORDERED: Iohexol 350 MG/100 ML VIAL ONE (00:37)
--- NOTE | 2017-07-15 01:42 | CT ---
EXAM: CT Abdomen and Pelvis With Intravenous Contrast CLINICAL HISTORY: 67 years old, female; Signs and symptoms; Other: Distension; Additional info: Abdominal distention TECHNIQUE: Axial computed tomography images of the abdomen and pelvis with intravenous contrast. All CT scans at this facility use one or more dose reduction techniques, viz.: automated exposure control; ma/kV adjustment per patient size (including targeted exams where dose is matched to indication; i.e. head); or iterative reconstruction technique. Coronal and sagittal reformatted images were created and reviewed. CONTRAST: 90 mL of OMNI 350 administered intravenously. COMPARISON: CT - ABD PELVIS IV CONTRAST ONLY 2017-06-01 11:00 FINDINGS: Lung bases: Unremarkable. No mass. No consolidation. ABDOMEN: Liver: Unremarkable. No mass. Gallbladder and bile ducts: Unremarkable. No calcified stones. No ductal dilation. Pancreas: Unremarkable. No mass. No ductal dilation. Spleen: Unremarkable. No splenomegaly. Adrenals: Unremarkable. No mass. Kidneys and ureters: Unremarkable. No solid mass. No hydronephrosis. Stomach and bowel: Large amount of stool throughout entire colon. Correlate for severe constipation. PELVIS: Appendix: No findings to suggest acute appendicitis. Bladder: Diffuse bladder wall thickening. Foci of gas anteriorly and bladder. Correlate for cystitis versus recent Daniel catheter. Reproductive: Unremarkable as visualized. ABDOMEN and PELVIS: Intraperitoneal space: Small amount of free fluid in pelvis. No free air. Bones/joints: Old compression deformity L1. No dislocation. Soft tissues: Unremarkable. Vasculature: Atherosclerotic vascular disease. No abdominal aortic aneurysm. Lymph nodes: Unremarkable. No enlarged lymph nodes. Tubes, lines and devices: Gastrostomy tube in place. IMPRESSION: 1. Large amount of stool throughout entire colon. Correlate for severe constipation. 2. Diffuse bladder wall thickening. Foci of gas anteriorly and bladder. Correlate for cystitis versus recent Daniel catheter. 3. Remainder of findings as above.
[2017-07-15] MEDS: Sodium Chloride 0.45% 1,000 ML IV SCH ×3 (01:59→23:55)
[2017-07-15 03:49] VITALS: BMI 20.1
[2017-07-15] MEDS: Levothyroxine 50 MCG TAB PO SCH (09:17)
[2017-07-15] MEDS ORDERED: POLYETHYLENE GLYCOL 3350 17 GM/Dose PACKET PEG SCH (10:00)
--- NOTE | 2017-07-15 10:20 | RAD ---
HISTORY: abdominal pain, G-Tube ? Obstruction COMPARISON: Comparison chest 07/04/2017. This study was read in conjunction with CT scan of the abdomen pelvis performed 07/15/2017 at 0046 hours FINDINGS: LUNGS: No active pulmonary disease. PLEURA: No significant pleural effusion identified, no pneumothorax apparent. CARDIOVASCULAR: Cardiac silhouette stable. . OSSEOUS STRUCTURES: No significant abnormalities. VISUALIZED UPPER ABDOMEN: No gross free intraperitoneal air seen under the diaphragmatic surfaces. In situ G-tube. OTHER FINDINGS: None. IMPRESSION: No acute infiltrates.
--- NOTE | 2017-07-15 10:22 | RAD ---
HISTORY: ? Small Bowel Obstruction? COMPARISON: Comparison abdomen 07/10/2017 FINDINGS: BOWEL: In situ G-tube. No evidence of acute mechanical bowel obstruction. Moderate amount of stool seen within the colon consistent with fecal retention/ constipation. BONES: Normal. OTHER FINDINGS: None. IMPRESSION: In situ G-tube. No evidence of acute mechanical bowel obstruction. Moderate amount of stool seen within the colon consistent with fecal retention/ constipation.
[2017-07-15] MEDS: POLYETHYLENE GLYCOL 3350 17 GM/Dose PACKET PEG SCH ×2 (14:21→17:12)
--- NOTE | 2017-07-15 22:07 | HP ---
HISTORY OF PRESENT ILLNESS: The patient is a 67-year-old, came to emergency room with multiple complaints, generalized weakness, poor oral intake, complain of throat pain, complain of having constipation. Denies any chest pain. Does not seem to be in any distress. The patient has multiple admissions for the similar complaints. She was recently admitted on 07/11; prior to that, she was discharged on 07/06. PAST MEDICAL HISTORY: Significant for: 1. Cachexia, malnutrition and had PEG tube placed for feeding purpose. 2. History of odynophagia. 3. Hyponatremia. 4. History of peptic ulcer disease. 5. Hypothyroidism. 6. Chronic constipation. 7. Complain of discomfort at the surgical site. ALLERGIES: SHE IS NOT ALLERGIC TO ANY MEDICATIONS. MEDICATIONS AT HOME: She is on levothyroxine 50 mcg daily. SOCIAL HISTORY: She is lives with her daughter. Denies smoking and drinking. REVIEW OF SYSTEMS: Complain of throat pain, complain of discomfort at G-tube side. PHYSICAL EXAMINATION: GENERAL: She is awake and alert. Looks pale, malnourished. VITAL SIGNS: She is afebrile, pulse 82, respirations 18, blood pressure 110/54. LUNGS: Bilateral fair air flow. No rhonchi or crackle. HEART: S1, S2 audible. ABDOMEN: Soft, nontender. No rebound, no guarding. G-tube in place. EXTREMITIES: Bilateral legs, no edema. LABORATORY DATA: WBC 5.8, hemoglobin 9.1, hematocrit 27.3, platelet 204. Chemistry: Sodium 128, potassium 3.7, chloride 95, CO2 25, BUN 7, creatinine 0.4. Blood sugar of 67. LDH is 317. Urinalysis is unremarkable. She had CT scan of the abdomen and pelvis done that shows a large amount of stool throughout the entire colon, correlate for severe constipation, diffuse bladder wall thickening. ASSESSMENT: 1. Poor oral intake. 2. Chronic constipation. 3. Malnutrition. 4. Dehydration. 5. Chronic anemia, probably malnutrition. 6. Hyponatremia. PLAN: We will continue the patient on IV fluids. Keep her on MiraLax, I will give her three times a day through the PEG tube. We will continue her on levothyroxine and diet will be advanced to pureed diet and we will follow up her electrolyte in a.m. Vitaliy Beckwith MD [facility] # [id number]
--- NOTE | 2017-07-16 08:13 | CARD ---
APPROVED REPORT EKG Measurement Heart [id number] 178P [id number] <Conclusion> Normal sinus rhythm Normal ECG
[2017-07-16] MEDS: POLYETHYLENE GLYCOL 3350 17 GM/Dose PACKET PEG SCH ×2 (09:28→17:11)
[2017-07-16] MEDS: Levothyroxine 50 MCG TAB PO SCH (09:28)
[2017-07-16 10:34] LABS: ALBUMIN 3.9 g/dL (3.0-4.8); ALT/SGPT 25 U/L (7-56); AST/SGOT 21 U/L (14-36); BLOOD UREA NITROGEN 9 mg/dL (7-21); CALCIUM 8.9 mg/dL (8.4-10.5); GFR AFRICAN-AMERICAN > 60; GFR NON-AFRICAN AMERICAN > 60
--- NOTE | 2017-07-16 15:39 | PN ---
DATE: 07/16/2017 SUBJECTIVE: The patient is 67 years old, seen and examined. According to nurse, she is eating well. for extra portion, although she complained of throat pain. No history of nausea and did have two bowel movements. Although the CT scan showed constipation. PHYSICAL EXAMINATION: GENERAL: The patient is awake, alert, oriented, able to communicate. VITAL SIGNS: The patient is afebrile. Pulse 65, respirations 20, and blood pressure 107/46. LUNGS: Bilateral good fair airflow. No rhonchi or crackle. HEART: S1 and S2 audible. ABDOMEN: Soft, nontender, no rebound, no guarding. NEUROLOGIC: She is awake, alert, oriented, able to communicate. LABORATORY EXAM: Sodium 129, potassium 4.6, chloride 90, CO2 of 27. BUN 9, and creatinine 0.5. Blood sugar of 115. ASSESSMENT: 1. Malnutrition. 2. Odynophagia. 3. Constipation. 4. Hyponatremia. PLAN: We will continue IV fluid. Continue her on laxative, we will cut down to twice a day since she started to pass bowel movement and will be reevaluated in the a.m. If constipation is resolved, she will be discharged in the a.m. Vitaliy Beckwith MD
[2017-07-16] MEDS: Sodium Chloride 0.45% 1,000 ML IV SCH (17:11)
[2017-07-17] MEDS: Sodium Chloride 0.45% 1,000 ML IV SCH (05:31)
[2017-07-17] MEDS: Levothyroxine 50 MCG TAB PO SCH (09:49)
[2017-07-17] MEDS: POLYETHYLENE GLYCOL 3350 17 GM/Dose PACKET PEG SCH (09:49)
--- NOTE | 2017-07-17 13:20 | CON ---
DATE: 07/16/2017 REASON FOR CONSULTATION: Abdominal pain and throat discomfort. HISTORY OF PRESENT ILLNESS: This 67-year-old patient with past medical history of chronic gastroesophageal reflux disease, diabetes mellitus, history of gastric erosions, was admitted for complaints of abdominal pain and throat discomfort. She was admitted multiple times in the hospital. Patient had very poor p.o. intake and also weight loss, had G tube placement. Patient is able to tolerate the diet; however, her p.o. intake was low and PEG tube was placed for additional supplemental feeding, in view of the significant weight loss and malnutrition. Patient did have an endoscopy done. She had a history of gastric erosions. Repeat endoscopy done on 05/25 showed healed ulcers. Patient is still complaining of mild throat discomfort. She was seen by the ENT in the past. PAST MEDICAL HISTORY: Other past medical history is significant as above, history of chronic constipation. ALLERGIES: NO KNOWN DRUG ALLERGIES. SOCIAL HISTORY: Denies smoking. No alcohol. She lives with the patient's daughter. REVIEW OF SYSTEMS: Positive as above. History of some throat discomfort. PHYSICAL EXAMINATION: GENERAL: Patient is lying on the bed, not in acute distress. VITAL SIGNS: Temperature is 98.5, pulse 58, blood pressure 135/63, respirations 18, O2 saturation 100%. HEENT: Atraumatic, anicteric. NECK: Supple. HEART: S1 and S2 heard. LUNGS: Bilateral air entry present. ABDOMEN: Soft. G tube in place. EXTREMITIES: No cyanosis, no clubbing. NEUROLOGIC: Alert, oriented, moves all the extremities. LABORATORY DATA: Hemoglobin 9.1, hematocrit 27.3, WBC 5.8, platelets 204. Chemistry is essentially unremarkable except the sodium is 129. Patient did have a CT scan of the abdomen and pelvis done, which was reviewed and shows large amount of stool throughout the colon, diffuse bladder thickening bladder. IMPRESSION: History of weight loss, anemia, chronic constipation, small amount of ascitic fluid was noticed. This patient has a history of malnutrition, poor p.o. intake, status post feeding tube placement, history of chronic throat discomfort. Evaluated by the ENT in the past. RECOMMENDATIONS: Give the MiraLax for bowel clearance and the patient would benefit from colonoscopy to further evaluate. Patient could not with the bowel preparation in the past. Multiple attempts were made. We will discuss with the family again. If this is agreeable, we can prepare the patient for colonoscopy by the GoLYTELY preparation through the G tube. ADDENDUM: The patient has been evaluated by the ENT for throat discomfort. Patient still points out the discomfort in this area. Thank you very much for allowing me to participate in the care of the patient. Washington Patterson MD
[2017-07-17 15:35] VITALS: BP 142/70; PULSE 64; RESP 20; TEMP 98.1; O2SAT 100
--- NOTE | 2017-07-17 16:26 | CP.PCM.PN ---
Subjective - Date & Time of Evaluation Date of Evaluation: 07/17/17 Time of Evaluation: 11:00 - Subjective Subjective: Seen and examined at the bedside earlier today, chart reviewed. Patient complains of throat pain but tolerating oral intake of pured diet, no reports of nausea or vomiting. Patient workup for complaints of dysphagia, recent EGD was negative, patient had soft tissue neck xray, no acute finding. Patient denies any abdominal pain at this time patient had multiple bowel movements. No reports of bleeding. Getting ready to eat puree lunch. Objective - Vital Signs/Intake and Output Vital Signs (last 24 hours): Temp Pulse Resp BP Pulse Ox 98.1 F 64 20 142/70 100 07/17/17 14:00 07/17/17 14:00 07/17/17 14:00 07/17/17 14:00 07/17/17 14:00 Intake and Output: 07/17/17 07/17/17 06:59 18:59 Intake Total 960 660 Balance 960 660 - Medications Medications: Current Medications Alprazolam (Xanax) 0.25 mg PO TID PRN; Protocol PRN Reason: Anxiety Stop: 07/24/17 10:01 Last Admin: 07/17/17 10:35 Dose: 0.25 mg Sodium Chloride (Sodium Chloride 0.45%) 1,000 mls @ 80 mls/hr IV .[id number] [facility] Last Admin: 07/17/17 05:31 Dose: 80 mls/hr Levothyroxine Sodium (Synthroid) 50 mcg PO DAILY [facility] Last Admin: 07/17/17 09:49 Dose: 50 mcg Polyethylene Glycol (Miralax) 17 gm PEG BID [facility] Last Admin: 07/17/17 09:49 Dose: 17 gm - Labs Labs: 07/16/17 10:10 PT 11.5 SECONDS (9.4-12.5) 07/14/17 19:00 INR 1.01 (0.93-1.08) 07/14/17 19:00 - Constitutional Appears: No Acute Distress - Head Exam Head Exam: NORMOCEPHALIC - Eye Exam Eye Exam: Normal appearance. absent: Scleral icterus - ENT Exam ENT Exam: Mucous Membranes Moist - Neck Exam Neck Exam: Normal Inspection - Respiratory Exam Respiratory Exam: Respiratory Distress. absent: NORMAL BREATHING PATTERN - Cardiovascular Exam Cardiovascular Exam: +S1, +S2 - GI/Abdominal Exam GI & Abdominal Exam: Soft, Normal Bowel Sounds. absent: Guarding, Tenderness, Organomegaly, Rebound Additional comments: PEG tube in place, no drainage noted small rash under PEG site, patient reports that she cleaned this morning, abdomen nontender - Extremities Exam Extremities Exam: absent: Calf Tenderness, Pedal Edema - Neurological Exam Neurological Exam: Alert, Awake, Oriented x3 - Skin Skin Exam: Dry, Warm Assessment and Plan - Assessment and Plan (Free Text) Assessment: Assessment: Resolved constipation, patient given laxative and had multiple bowel movements Malnutrition, status post EGD/PEG, no acute findings, refuse colon Hyponatremia Chronic consitpation Plan: Discussed with Dr. Napier and patient regarding colonoscopy evaluation , patient did refuse an the past, discussed with patient again and still refusing. Continue pured diet Continue MiraLAX, hold for diarrhea. Seen and discussed with Dr. Patterson.
== END 2017-07-17 18:02 | disposition home or self-care (01) ==
LOC: ED 17:54 → ERH 07-15 02:10 → 5RSO 07-15 02:59
PROVIDERS: ADMIT Internal Medicine Nephrology; ATTEND Internal Medicine Nephrology
DX: K59.09 Other constipation (principal); E46 Unspecified protein-calorie malnutrition; R64 Cachexia; Z68.20 Body mass index [BMI] 20.0-20.9, adult; E87.1 Hypo-osmolality and hyponatremia; E03.9 Hypothyroidism, unspecified; R13.10 Dysphagia, unspecified; E86.0 Dehydration; K21.9 Gastro-esophageal reflux disease without esophagitis; E11.9 Type 2 diabetes mellitus without complications; R04.0 Epistaxis; D64.9 Anemia, unspecified
CPT/HCPCS: 36415; 71045; 74019; 74177; 80053; 81003; 82550; 82803; 82948; 83615; 83690; 84484; 85025; 85610; 87040; 87086; 93005; 96360; 96374; 99284; G0378; J2060; J7030; Q9966; Q9967

== ENCOUNTER 2017-07-18 19:25 | Inpatient (IN) | payer MEDICARE, OTHER ==
[2017-07-18 19:27] VITALS: BMI 20.1
[2017-07-18 20:46] LABS: URINE BILIRUBIN NEGATIVE (NEGATIVE); URINE BLOOD NEGATIVE (NEGATIVE); URINE GLUCOSE (UA) NEGATIVE (NEGATIVE); URINE LEUKOCYTE ESTERASE TRACE Leu/uL (NEGATIVE); URINE PROTEIN NEGATIVE mg/dL (<30 mg/dL); URINE UROBILINOGEN 0.2 E.U./dL (<1 E.U./dL)
[2017-07-18 20:50] LABS: URINE APPEARANCE SL CLOUDY (CLEAR); URINE COLOR YELLOW (YELLOW)
[2017-07-18 20:57] LABS: URINE BACTERIA FEW (NEG); URINE RBC NEGATIVE /hpf (0-2)
[2017-07-18 21:19] LABS: BARBITURATES, UR NEGATIVE (NEGATIVE); BENZODIAZEPINES, UR NEGATIVE (NEGATIVE); OPIATES, UR NEGATIVE (NEGATIVE); PHENCYCLIDINE, UR NEGATIVE (NEGATIVE)
[2017-07-18 21:24] LABS: BASO # 0.04 K/mm3 (0.0-2.0); BASO % 0.8 % (0.0-3.0); EOS # 0.1 (0.0-0.7); EOS % 1.2 % (1.5-5.0); GRAN # 2.5 (1.4-6.5); GRAN % 51.7 % (50.0-68.0); HEMOGLOBIN 10.7 g/dL (12.0-16.0); LYMPH # 1.8 (1.2-3.4); MEAN CELL VOLUME 79.6 fl (80.0-105.0); MEAN CORPUSCULAR HEMOGLOBIN 26.6 pg (25.0-35.0); MEAN CORPUSCULAR HGB CONC 33.4 g/dl (31.0-37.0); MEAN PLATELET VOLUME 8.8 fl (7.0-11.0); MONO # 0.5 (0.1-0.6); MONO % 9.3 % (1.0-6.0); RBC 4.02 10^6/uL (3.5-6.1); RED CELL DISTRIBUTION WIDTH 14.3 % (11.5-14.5); WHITE BLOOD COUNT 4.8 10^3/ul (4.5-11.0)
[2017-07-18 21:33] LABS: INR 0.97 (0.93-1.08); PARTIAL THROMBOPLASTIN TIME 30.4 Seconds (25.1-36.5)
[2017-07-18 21:35] LABS: ACETAMINOPHEN < 10.0 ug/ml (10.0-20.0); SALICYLATE < 1 mg/dL (2.0-20.0)
[2017-07-18 21:37] LABS: ALBUMIN 3.9 g/dL (3.0-4.8); ALT/SGPT 21 U/L (7-56); AST/SGOT 33 U/L (14-36); BLOOD UREA NITROGEN 10 mg/dL (7-21); CALCIUM 8.9 mg/dL (8.4-10.5); GFR AFRICAN-AMERICAN > 60; GFR NON-AFRICAN AMERICAN > 60
[2017-07-18 21:48] LABS: TROPONIN I < 0.01 ng/mL
[2017-07-18 21:52] LABS: T4 8.8 ug/dL (5.5-11.0)
--- NOTE | 2017-07-18 22:37 | CT ---
EXAM: CT Head Without Intravenous Contrast EXAM DATE/TIME: 07/18/2017 7:44 PM CLINICAL HISTORY: 67 years old, female; Signs and symptoms; Altered mental status/memory loss; Additional info: AMS TECHNIQUE: Axial computed tomography images of the head/brain without intravenous contrast. All CT scans at this facility use one or more dose reduction techniques, viz.: automated exposure control; ma/kV adjustment per patient size (including targeted exams where dose is matched to indication; i.e. head); or iterative reconstruction technique. Coronal and sagittal reformatted images were created and reviewed. COMPARISON: CT - HEAD W/O CONTRAST 2017-06-09 16:19 FINDINGS: There is atrophy. There is chronic small vessel ischemic disease. There is no hemorrhage or edema. No significant fluid in the sinuses. Again seen are sclerotic and underpneumatized mastoid air cells. The osseous structures are normal. IMPRESSION: No acute findings.
--- NOTE | 2017-07-18 23:09 | ED PDOC ---
Arrival/HPI - General Chief Complaint: Altered Mental Status Time Seen by Provider: 07/18/17 19:41 Historian: EMS - History of Present Illness Narrative History of Present Illness (Text): 07/18/17 23:06 Patient is a 67 yo female presents to the Emergency Department after reportedly stated she was "unresponsive". History obtained from ambulance crew. Patient is not speaking initially or providing history. Reportedly the patient was last seen to be her normal self yesterday after she had been discharged from hospital, although reportedly "found her like this". No history of trauma or injury or ingestion or overdose. Family not present on initial evaluation. Past Medical History - Past History Past History: No Previous - Infectious Disease Hx of Infectious Diseases: None - Tetanus Immunization Tetanus Immunization: Unknown - Past Medical History Past Medical History: Non-Contributing - Cardiac Hx Cardiac Disorders: Yes Hx Hypertension: Yes - Pulmonary Hx Respiratory Disorders: No - Neurological Hx Neurological Disorder: No - HEENT Hx Difficulty Chewing: Yes Hx Glaucoma: Yes - Renal Hx Renal Disorder: Yes (URINARY RETENTION 07-10-17) - Endocrine/Metabolic Hx Diabetes Mellitus Type 2: Yes Hx Hypothyroidism: Yes - Hematological/Oncological Hx Blood Disorders: No Hx AIDS: No Hx Anemia: No Hx Cancer: No Hx Chemotherapy: No Hx Cirrhosis: No Hx Hepatitis A: No Hx Hepatitis B: No Hx Hepatitis C: No Hx Metastasis: No Hx Shingles: No Hx Unexplained Bleeding: No - Integumentary Hx Dermatological Disorder: Yes - Musculoskeletal/Rheumatological Hx Musculoskeletal Disorders: Yes Hx Falls: Yes - Gastrointestinal Hx Gastrointestinal Disorders: Yes (weight loss,GASTROPARESIS,DYSPHAGIA, GASTRITIS) HX Swallowing Problems: Yes (sore throat) Other/Comment: hyponatremia,peptic ulcer , peg tube - Genitourinary/Gynecological Hx Genitourinary Disorders: Yes (C/S X 2) - Psychiatric Hx Psychophysiologic Disorder: Yes Hx Anxiety: Yes Hx Bipolar Disorder: Yes Hx Depression: Yes Hx Panic Disorder: Yes Hx Substance Use: No - Past Surgical History Past Surgical History: No Previous - Surgical History Hx Cardiac Catheterization: Yes Hx Coronary Stent: No - Anesthesia Hx Anesthesia Reactions: No Hx Malignant Hyperthermia: No - Suicidal Assessment Feels Threatened In Home Enviroment: No Family/Social History Family/Social History: Unknown Family HX Smoking Status: Unknown If Ever Smoked Hx Alcohol Use: No Hx Substance Use: No Hx Substance Use Treatment: No Allergies/Home Meds Allergies/Adverse Reactions: Allergies No Known Allergies Allergy (Verified 07/24/17 11:43) Home Medications: Home Meds Medication Instructions Recorded Confirmed Docusate [Colace] 100 mg PO DAILY 07/24/17 07/24/17 Ergocalciferol [Drisdol 50,000 1.25 mg PO Q7D 07/24/17 07/24/17 Intl Units Cap] Lactulose [Generlac] 10 gm PO DAILY 07/24/17 07/24/17 metFORMIN [glucOPHAGE] 500 mg PO DAILY 07/24/17 07/24/17 Review of Systems - Review of Systems Systems not reviewed;Unavailable: Uncooperative Constitutional: absent: Fevers Respiratory: absent: SOB Cardiovascular: absent: Chest Pain Gastrointestinal: absent: Vomiting Neurological: absent: Headache, Focal Weakness Physical Exam - Physical Exam Physical Exam Limitations: Uncooperative Vital Signs Reviewed: Yes Vital Signs Temp Pulse Resp BP Pulse Ox 07/19/17 05:29 83 16 105/52 L 100 07/19/17 04:18 90 18 110/56 L 100 07/19/17 02:58 98.6 F 86 12 117/69 100 07/19/17 00:17 61 18 128/68 100 07/18/17 23:16 98.7 F 55 L 12 140/74 100 07/18/17 20:28 98.2 F 55 L 18 135/61 99 Temperature: Afebrile Pulse: Bradycardic Appearance: Positive for: Cachectic Mental Status: Positive for: other (will not speak or answer questions) - Systems Exam Head: Present: Atraumatic Pupils: Present: PERRL Conjunctiva: No: Injected Mouth: Present: Dry Pharnyx: No: Peritonsilar Swelling, Muffled/Hoarse Voice, Strider Neck: Present: Normal Range of Motion. No: Meningeal Signs Respiratory/Chest: Present: Clear to Auscultation. No: Respiratory Distress Cardiovascular: Present: Murmurs, Bradycardic Abdomen: Present: Feeding Tubes. No: Tenderness Rectal: No: Gross Blood Genitourinary/Pelvic Exam: No: Vaginal Bleeding Back: No: CVA Tenderness Upper Extremity: No: Edema Lower Extremity: No: Edema Neurological: Present: Other (she will move all four extremities, grab with both hands, open eyes to voice, occasionally voice that she has throat discomfort) Skin: Present: Warm Psychiatric: Present: Other (does not converse when engaged at times). No: Normal Insight, Normal Concentration Medical Decision Making ED Course and Treatment: 07/18/17 23:10 Patient has had multiple recent visits, most recently discharged from hospital yesterday. She has recent hx of constipation as well as history of difficulty swallowing with extensive workup. On initial exam, she has eyes closed and will not answer questions. She however will speak occasionally to express that she does not want catheter or repeated blood tests, then she returns to closing her eyes and not speaking. No respiratory distress noted. She will move all four extremeties and no acute facial droop noted. CT head obtained with no acute changes. With serial exams, she remains unwilling to converse although again will occasionally answer questions. Urine drug screen reviewed. No history of overdose or acute trauma noted. She is cv stable. Hyponatremia noted, although this has been chronic. ? psychiatric component to presentation as patient has had extensive recent workup including multiple cts. Discussed with PMD, she has had prior history of this type of behavior. As labs at baseline and no focal weakness noted with unremarkable ct, will request PES consultation initially. Will endorse case to Dr. Martinez for follow-up with PES recommendations and reassessment. - Lab Interpretations Microbiology Results: Microbiology Results 07/18/17 20:40 Blood Blood Culture - Final NO GROWTH AFTER 5 DAYS 07/18/17 20:40 Blood Gram Stain - Final TEST NOT PERFORMED 07/18/17 20:10 Blood Blood Culture - Final NO GROWTH AFTER 5 DAYS 07/18/17 20:10 Blood Gram Stain - Final TEST NOT PERFORMED 07/18/17 20:38 Urine Urine Culture - Final No Growth (<1,000 CFU/ML) Lab Results: 07/18/17 21:00 07/18/17 21:00 Lab Results 07/19/17 02:54: POC Glucose (mg/dL) 85 07/18/17 21:00: Thyroxine (T4) 8.8, TSH 3rd Generation 1.58, Alcohol, Quantitative < 10 07/18/17 21:00: Salicylates < 1 L, Acetaminophen < 10.0 L 07/18/17 21:00: Sodium 126 L, Potassium 5.0, Chloride 89 L, Carbon Dioxide 29, Anion Gap 13, BUN 10, Creatinine 0.5 L, Est GFR ( Amer) > 60, Est GFR ( Non-Af Amer) > 60, Random Glucose 108, Calcium 8.9, Magnesium 1.7, Total Bilirubin 0.2, AST 33, ALT 21, Alkaline Phosphatase 89, Lactate Dehydrogenase 419, Total Creatine Kinase 35, Troponin I < 0.01, Total Protein 7.7, Albumin 3.9 , Globulin 3.8, Albumin/Globulin Ratio 1.0 L 07/18/17 21:00: PT 11.0, INR 0.97, APTT 30.4 07/18/17 21:00: WBC 4.8, RBC 4.02, Hgb 10.7 L, Hct 32.0 L, MCV 79.6 L, MCH 26.6 , MCHC 33.4, RDW 14.3, Plt Count 296, MPV 8.8, Gran % 51.7, Lymph % (Auto) 37.0 H, [place] % (Auto) 9.3 H, Eos % (Auto) 1.2 L, Baso % (Auto) 0.8, Gran # 2.50, Lymph # (Auto) 1.8, [place] # (Auto) 0.5, Eos # (Auto) 0.1, Baso # (Auto) 0.04 07/18/17 20:38: Urine Opiates Screen Negative, Urine Methadone Screen Negative, Ur Barbiturates Screen Negative, Ur Phencyclidine Scrn Negative, Ur Amphetamines Screen Negative, U Benzodiazepines Scrn Negative, U Oth Cocaine Metabols Negative, U Cannabinoids Screen Negative 07/18/17 20:38: Urine Color Yellow, Urine Appearance Sl cloudy, Urine pH 7.0, Ur Specific [place] <= 1.005, Urine Protein Negative, Urine Glucose (UA) Negative, Urine Ketones Negative, Urine Blood Negative, Urine Nitrate Negative, Urine Bilirubin Negative, Urine Urobilinogen 0.2, Ur Leukocyte Esterase Trace H , Urine RBC Negative, Urine WBC 2 - 5, Ur Epithelial Cells 1 - 3, Urine Bacteria Few - RAD Interpretation Radiology Orders: 07/18/17 19:44 HEAD W/O CONTRAST [CT] Stat CHEST ONE VIEW [RAD] Stat - EKG Interpretation EKG Interpretation (Text): 07/18/17 23:14 EKG at 2115 sinus bradycardia rate of 53 Interpreted by ED Physician: Yes Type: 12 lead EKG - Medication Orders Current Medication Orders: Discontinued Medications Benzocaine/Menthol (Cepacol Sore Throat) 1 umair MT Q2H PRN PRN Reason: Sore Throat Ergocalciferol (Drisdol 50,000 Intl Units Cap) 1 cap PO Q7D [facility] Last Admin: 07/20/17 10:01 Dose: 1 cap Sodium Chloride (Sodium Chloride 0.9%) 1,000 mls @ 50 mls/hr IV .Q20H [facility] Last Admin: 07/20/17 10:02 Dose: 50 mls/hr Comments: barcode not scanning eMAR Start Stop Document 07/20/17 10:02 SOUSV (Rec: 07/20/17 10:02 SOUSV [id number]) Intravenous Solution Start Date 07/20/17 Start Time 10:02 Iron Sucrose 100 mg/ Sodium (Chloride) 105 mls @ 210 mls/hr IVPB DAILY [facility] Stop: 07/21/17 10:29 Last Admin: 07/21/17 11:13 Dose: 210 mls/hr eMAR Start Stop Document 07/21/17 11:13 MANIL (Rec: 07/21/17 11:13 MANIL [id number]) Intravenous Solution Start Date 07/21/17 Start Time 11:13 End Date 07/21/17 End time 11:43 Total Infusion Time 30 Lactulose (Enulose) 10 gm PO DAILY PRN PRN Reason: Constipation Lactulose (Enulose) 10 gm PO DAILY [facility] Last Admin: 07/23/17 09:36 Dose: 10 gm Levothyroxine Sodium (Synthroid) 25 mcg PO 0600 [facility] Last Admin: 07/23/17 05:27 Dose: 25 mcg Magnesium Hydroxide (Milk Of Magnesia) 30 ml PO DAILY PRN PRN Reason: skin excoriation Ondansetron HCl (Zofran Inj) 4 mg IVP Q6 PRN PRN Reason: Nausea/Vomiting Pantoprazole Sodium (Protonix Ec Tab) 40 mg PO DAILY [facility] Last Admin: 07/23/17 09:37 Dose: 40 mg Disposition/Present on Arrival - Present on Arrival Any Indicators Present on Arrival: No History of DVT/PE: No History of Uncontrolled Diabetes: No Urinary Catheter: No History of Decub. Ulcer: No History Surgical Site Infection Following: None - Disposition Have Diagnosis and Disposition been Completed?: Yes Diagnosis: Altered mental status, Hyponatremia, Impaired swallowing associated with throat pain, Anxiety Disposition: HOSPITALIZED Disposition Time: 23:00 Patient Plan: Observation Patient Problems: Current Active Problems Problem Status Onset Altered mental status Acute Hyponatremia Acute Subcapital fracture of hip Acute Condition: FAIR
--- NOTE | 2017-07-19 00:26 | ED PDOC ---
Physical Exam Vital Signs Temp Pulse Resp BP Pulse Ox 07/19/17 04:18 90 18 110/56 L 100 07/19/17 02:58 98.6 F 86 12 117/69 100 07/19/17 00:17 61 18 128/68 100 07/18/17 23:16 98.7 F 55 L 12 140/74 100 07/18/17 20:28 98.2 F 55 L 18 135/61 99 Medical Decision Making ED Course and Treatment: 07/18/17 23:00 Case endorsed to me by Dr. Vargas pending PES recommendations and reassessment. 07/19/17 04:02 PES seen and evaluated patient. Patient is cleared. 07/19/17 04:[address] Napier who is aware and agrees with the plan. Accepts patient into his service - Lab Interpretations Lab Results: 07/18/17 21:00 07/18/17 21:00 Lab Results 07/18/17 21:00: Thyroxine (T4) 8.8, TSH 3rd Generation 1.58, Alcohol, Quantitative < 10 07/18/17 21:00: Salicylates < 1 L, Acetaminophen < 10.0 L 07/18/17 21:00: Sodium 126 L, Potassium 5.0, Chloride 89 L, Carbon Dioxide 29, Anion Gap 13, BUN 10, Creatinine 0.5 L, Est GFR ( Amer) > 60, Est GFR ( Non-Af Amer) > 60, Random Glucose 108, Calcium 8.9, Magnesium 1.7, Total Bilirubin 0.2, AST 33, ALT 21, Alkaline Phosphatase 89, Lactate Dehydrogenase 419, Total Creatine Kinase 35, Troponin I < 0.01, Total Protein 7.7, Albumin 3.9 , Globulin 3.8, Albumin/Globulin Ratio 1.0 L 07/18/17 21:00: PT 11.0, INR 0.97, APTT 30.4 07/18/17 21:00: WBC 4.8, RBC 4.02, Hgb 10.7 L, Hct 32.0 L, MCV 79.6 L, MCH 26.6 , MCHC 33.4, RDW 14.3, Plt Count 296, MPV 8.8, Gran % 51.7, Lymph % (Auto) 37.0 H, [place] % (Auto) 9.3 H, Eos % (Auto) 1.2 L, Baso % (Auto) 0.8, Gran # 2.50, Lymph # (Auto) 1.8, [place] # (Auto) 0.5, Eos # (Auto) 0.1, Baso # (Auto) 0.04 07/18/17 20:38: Urine Opiates Screen Negative, Urine Methadone Screen Negative, Ur Barbiturates Screen Negative, Ur Phencyclidine Scrn Negative, Ur Amphetamines Screen Negative, U Benzodiazepines Scrn Negative, U Oth Cocaine Metabols Negative, U Cannabinoids Screen Negative 07/18/17 20:38: Urine Color Yellow, Urine Appearance Sl cloudy, Urine pH 7.0, Ur Specific [place] <= 1.005, Urine Protein Negative, Urine Glucose (UA) Negative, Urine Ketones Negative, Urine Blood Negative, Urine Nitrate Negative, Urine Bilirubin Negative, Urine Urobilinogen 0.2, Ur Leukocyte Esterase Trace H , Urine RBC Negative, Urine WBC 2 - 5, Ur Epithelial Cells 1 - 3, Urine Bacteria Few - RAD Interpretation Radiology Orders: 07/18/17 19:44 HEAD W/O CONTRAST [CT] Stat CHEST ONE VIEW [RAD] Stat - Scribe Statement The provider has reviewed the documentation as recorded by the Raul Snyder Provider Scribe Attestation: All medical record entries made by the Susanaibtyson were at my direction and personally dictated by me. I have reviewed the chart and agree that the record accurately reflects my personal performance of the history, physical exam, medical decision making, and the department course for this patient. I have also personally directed, reviewed, and agree with the discharge instructions and disposition. Disposition/Present on Arrival - Present on Arrival Any Indicators Present on Arrival: No History of DVT/PE: No History of Uncontrolled Diabetes: No Urinary Catheter: No History of Decub. Ulcer: No History Surgical Site Infection Following: None - Disposition Have Diagnosis and Disposition been Completed?: Yes Diagnosis: Altered mental status, Hyponatremia, Impaired swallowing associated with throat pain, Anxiety Disposition: HOSPITALIZED Disposition Time: 04:41 Patient Plan: Admission Patient Problems: Current Active Problems Problem Status Onset Altered mental status Acute Hyponatremia Acute Subcapital fracture of hip Acute Condition: FAIR
--- NOTE | 2017-07-19 07:44 | CP.PCM.HP ---
<Narendra aPrra - Last Filed: 07/19/17 14:09> History of Present Illness - History of Present Illness History of Present Illness: PGY1 H&P Note for Dr. Barajas cc: "throat pain" 67 F with PMH of HTN, DM, Hypothyroidism, cachexia, s/p PEG tube, odynophagia was brought in by EMS to [facility] [place] after reportedly stated she was "unresponsive". As per EMS, Patient was not speaking initially or providing history. Apparently, the patient was not her normal self. She had been discharged from the hospital one day prior. reported that he found her in this state. Patient reports that she came in because she has "throat pain. " Patient has no recollection of events from yesterday. She continues to ask for food and complains about her throat. No family was present during interview or evaluation. Daughter was contacted and did not provide much information. Medication list unavailable. She did however state that her mother uses [facility] on [address] in [place] for prescriptions. Pharmacy was contacted and provided a minimal medication list. ROS unobtainable due to patient attention and cooperation. PMD: None PMH: HTN, DM, Hypothyroidism, cachexia, odynophagia Meds: Lactulose 10 mg PO daily, Vitamin D2 50,000 units PO Q7D, MVM, Potassium Allergy: NKDA PSH: PEG tube FH: unknown Social: denies tobacco/EtOH/illicit drugs use Present on Admission - Present on Admission Any Indicators Present on Admission: No History of DVT/PE: No History of Uncontrolled Diabetes: No Urinary Catheter: No Decubitus Ulcer Present: No History Surgical Site Infection Following: None Review of Systems - Review of Systems Systems not reviewed;Unavailable: Uncooperative Past Patient History - Infectious Disease Hx of Infectious Diseases: None - Tetanus Immunizations Tetanus Immunization: Unknown - Past Social History Smoking Status: Unknown If Ever Smoked - CARDIAC Hx Cardiac Disorders: Yes Hx Hypertension: Yes - PULMONARY Hx Respiratory Disorders: No - NEUROLOGICAL Hx Neurological Disorder: No - HEENT Hx Difficulty Chewing: Yes Hx Glaucoma: Yes - RENAL Hx Chronic Kidney Disease: Yes (URINARY RETENTION 07-10-17) - ENDOCRINE/METABOLIC Hx Diabetes Mellitus Type 2: Yes Hx Hypothyroidism: Yes - HEMATOLOGICAL/ONCOLOGICAL Hx Cancer: No - INTEGUMENTARY Hx Dermatological Problems: Yes - MUSCULOSKELETAL/RHEUMATOLOGICAL Hx Musculoskeletal Disorders: Yes Hx Falls: Yes - GASTROINTESTINAL Hx Gastrointestinal Disorders: Yes (weight loss,GASTROPARESIS,DYSPHAGIA, GASTRITIS) HX Swallowing Problems: Yes (sore throat) Other/Comment: hyponatremia,peptic ulcer , peg tube - GENITOURINARY/GYNECOLOGICAL Hx Genitourinary Disorders: Yes (C/S X 2) - PSYCHIATRIC Hx Psychophysiologic Disorder: Yes Hx Anxiety: Yes Hx Bipolar Disorder: Yes Hx Depression: Yes Hx Panic Symptoms: Yes Hx Substance Use: No - SURGICAL HISTORY Hx Cardiac Catheterization: Yes Hx Coronary Stent: No - ANESTHESIA Hx Anesthesia Reactions: No Hx Malignant Hyperthermia: No Meds Allergies/Adverse Reactions: Allergies Allergy/AdvReac Type Severity Reaction Status Date / Time No Known Allergies Allergy Verified 07/18/17 19:33 Physical Exam - Constitutional Appears: No Acute Distress - Head Exam Head Exam: ATRAUMATIC, NORMOCEPHALIC - Eye Exam Eye Exam: EOMI, Normal appearance Pupil Exam: PERRL - ENT Exam ENT Exam: Mucous Membranes Moist - Neck Exam Neck exam: Positive for: Normal Inspection - Respiratory Exam Respiratory Exam: Clear to Auscultation Bilateral, NORMAL BREATHING PATTERN - Cardiovascular Exam Cardiovascular Exam: RRR, +S1, +S2 - GI/Abdominal Exam GI & Abdominal Exam: Normal Bowel Sounds, Soft. absent: Tenderness Additional comments: pEG tube with excoriation of skin underneath - Extremities Exam Extremities exam: Positive for: normal capillary refill, pedal pulses present - Back Exam Back exam: absent: CVA tenderness (L), CVA tenderness (R) - Neurological Exam Neurological exam: Alert, CN II-XII Intact - Psychiatric Exam Additional comments: labile affect - Skin Skin Exam: Dry, Normal Color Additional comments: pEG tube with excoriation of skin underneath Results - Vital Signs Recent Vital Signs: Last Vital Signs Temp 98.6 F 07/19/17 02:58 Pulse 83 07/19/17 05:29 Resp 16 07/19/17 05:29 BP 105/52 L 07/19/17 05:29 Pulse Ox 100 07/19/17 05:29 - Labs Result Diagrams: 07/18/17 21:00 07/18/17 21:00 Labs: Laboratory Results - last 24 hr 07/19/17 07:28 POC Glucose (mg/dL) 86 Assessment & Plan - Assessment and Plan (Free Text) Assessment: 67 F with PMH of HTN, DM, Hypothyroidism, cachexia, s/p PEG tube, odynophagia was brought in by EMS to [facility] [facility] [place] who is complaining of throat pain and was found to have hyponatremia Plan: 1. Hyponatremia Na 126 f/u Serum osmolality f/u Urine osmolality/sodium/chloride NS 50 cc/hr 2. Hypothyroidism TSh, and Free T4 wnl Repeat Free T4, TSH Will start Synthroi if labs abnormal 3. Agitation/Labile affect Psych consult, help appreciated 4. Constipation Lactulose 10 mg PO daily PRN 5. Odynophagia Patient able to eat and drink Swallow evaluation Pureed diet Psych consult, help appreciated 6. Prophylactic Measures SCDs Protonix Case management referral Speech/Language Therapist referral Case seen and discussed with attending physician, Dr. Karl Parra PGY1 - Date & Time Date: 07/19/17 Time: 07:00 <Rigoberto Barajas - Last Filed: 07/19/17 16:14> Results - Vital Signs Recent Vital Signs: Last Vital Signs Temp 96.0 F L 07/19/17 06:00 Pulse 54 L 07/19/17 06:25 Resp 18 07/19/17 06:25 BP 122/72 07/19/17 06:25 Pulse Ox 100 07/19/17 06:00 - Labs Result Diagrams: 07/18/17 21:00 07/18/17 21:00 Labs: Laboratory Results - last 24 hr 07/19/17 07/19/17 07/19/17 07:28 13:14 Unknown POC Glucose (mg/dL) 86 Iron 33 L TIBC 391 % Saturation 8 L Free T4 1.02 TSH 3rd Generation 1.24 Attending/Attestation - Attestation I have personally seen and examined this patient.: Yes I have fully participated in the care of the patient.: Yes I have reviewed all pertinent clinical information: Yes Notes (Text): 07/19/17 15:56 Patient was seen and examined with infertility medical assistant.History was taken with the help of translators.Patient is very anxious and is poor historian. 67 F with PMH of HTN, DM, Hypothyroidism, cachexia, s/p PEG tube, H/O functional dysphagia with recent negative GI and ENT work up is admitted with H/O odynophagia. We will get speech and swallow evaluation and will get GI follow up . Hyponatremia is chronic , due to poor oral intake will give gentle IV hydration , will order hyponatremia work up.Patient is asymptomatic. Severe anxiety, will get Psychiatric consultation. 07/19/17 16:14
--- NOTE | 2017-07-19 08:39 | RAD ---
PROCEDURE: CHEST RADIOGRAPH, 1 VIEW HISTORY: ams COMPARISON: 07/14/2017 FINDINGS: LUNGS: Clear. PLEURA: No pneumothorax or pleural fluid seen. CARDIOVASCULAR: Normal. OSSEOUS STRUCTURES: No significant abnormalities. VISUALIZED UPPER ABDOMEN: Normal. OTHER FINDINGS: None. IMPRESSION: No active disease.
[2017-07-19] MEDS ORDERED: Benzocaine/Menthol (Cepacol) Lozenge MT PRN (09:03)
[2017-07-19] MEDS ORDERED: Magnesium Hydroxide Susp 30 ml UD PO PRN (09:08)
[2017-07-19] MEDS: Pantoprazole 40 mg EC Tab PO SCH (10:16)
[2017-07-19] MEDS: Sodium Chloride 0.9% 1,000 ML IV SCH (13:02)
[2017-07-19 14:17] LABS: IRON 33 ug/dL (45-180)
[2017-07-19 14:26] LABS: % IRON SATURATION 8 % (20-55); TOTAL IRON BINDING CAPACITY 391 ug/dL (265-497)
[2017-07-19 14:34] LABS: FREE T4 1.02 ng/dL (0.78-2.19)
[2017-07-19 21:03] LABS: FERRITIN 15.4 ng/mL
[2017-07-19 21:34] LABS: FOLATE > 20.0 ng/mL
--- NOTE | 2017-07-19 23:47 | CARD ---
APPROVED REPORT EKG Measurement Heart [id number] <Conclusion> Poor data quality, interpretation may be adversely affected Sinus bradycardia Otherwise normal ECG
[2017-07-20] MEDS: Pantoprazole 40 mg EC Tab PO SCH (09:39)
[2017-07-20] MEDS ORDERED: Ergocalciferol 50,000 Intl Units Cap PO SCH (10:00)
[2017-07-20] MEDS: Sodium Chloride 0.9% 1,000 ML IV SCH (10:02)
--- NOTE | 2017-07-20 15:35 | CP.PCM.PN ---
<Chito Ashraf - Last Filed: 07/20/17 15:29> Subjective - Date & Time of Evaluation Date of Evaluation: 07/20/17 Time of Evaluation: 15:30 - Subjective Subjective: Patient seen and examined at bedside. Was observed walking around the halls without difficulty. Tolerated diet PO without difficulty. Observed resting comfortably but when I awoke her patient was stated that her throat was in terrible pain. Objective - Vital Signs/Intake and Output Vital Signs (last 24 hours): Temp Pulse Resp BP Pulse Ox 97.0 F L 60 20 115/57 L 98 07/20/17 06:00 07/20/17 06:00 07/20/17 06:00 07/20/17 06:00 07/20/17 06:00 Intake and Output: 07/20/17 07/20/17 06:59 18:59 Intake Total 700 960 Output Total 0 Balance 700 960 - Medications Medications: Current Medications Benzocaine/Menthol (Cepacol Sore Throat) 1 umair MT Q2H PRN PRN Reason: Sore Throat Ergocalciferol (Drisdol 50,000 Intl Units Cap) 1 cap PO Q7D [facility] Last Admin: 07/20/17 10:01 Dose: 1 cap Iron Sucrose 100 mg/ Sodium (Chloride) 105 mls @ 210 mls/hr IVPB DAILY [facility] Stop: 07/21/17 10:29 Last Admin: 07/20/17 09:39 Dose: 210 mls/hr Lactulose (Enulose) 10 gm PO DAILY [facility] Last Admin: 07/20/17 09:55 Dose: Not Given Levothyroxine Sodium (Synthroid) 25 mcg PO 0600 [facility] Magnesium Hydroxide (Milk Of Magnesia) 30 ml PO DAILY PRN PRN Reason: skin excoriation Ondansetron HCl (Zofran Inj) 4 mg IVP Q6 PRN PRN Reason: Nausea/Vomiting Pantoprazole Sodium (Protonix Ec Tab) 40 mg PO DAILY [facility] Last Admin: 07/20/17 09:39 Dose: 40 mg - Labs Labs: PT 11.0 SECONDS (9.4-12.5) 07/18/17 21:00 INR 0.97 (0.93-1.08) 07/18/17 21:00 APTT 30.4 Seconds (25.1-36.5) 07/18/17 21:00 - Additional Findings Additional findings: - Constitutional Appears: No Acute Distress - Head Exam Head Exam: ATRAUMATIC, NORMOCEPHALIC - Eye Exam Eye Exam: EOMI, Normal appearance Pupil Exam: PERRL - ENT Exam ENT Exam: Mucous Membranes Moist - Neck Exam Neck exam: Positive for: Normal Inspection - Respiratory Exam Respiratory Exam: Clear to Auscultation Bilateral, NORMAL BREATHING PATTERN - Cardiovascular Exam Cardiovascular Exam: RRR, +S1, +S2 - GI/Abdominal Exam GI & Abdominal Exam: Normal Bowel Sounds, Soft. absent: Tenderness Additional comments: pEG tube with excoriation of skin underneath - Extremities Exam Extremities exam: Positive for: normal capillary refill, pedal pulses present - Back Exam Back exam: absent: CVA tenderness (L), CVA tenderness (R) - Neurological Exam Neurological exam: Alert, CN II-XII Intact - Psychiatric Exam Additional comments: labile affect - Skin Skin Exam: Dry, Normal Color Additional comments: pEG tube with excoriation of skin underneath Assessment and Plan - Assessment and Plan (Free Text) Assessment: 1. Hyponatremia patient refusing f/u blood work will stop fluids at this time. Patient is tolerating diet PO Patient is chronically hyponatremic 2. Hypothyroidism Patient has history of taking synthroid 50 daily. Has been off of meds since at least one month Patient is constipated and melinda. Will restart at Synthroid 25 daily as TSH is normal 3. Agitation/Labile affect Psych consult - Has previous admission to psych amaral with multiple medication trials with no success 4. Constipation Lactulose 10 mg PO daily PRN 5. Odynophagia Patient able to eat and drink without difficultly 6. Prophylactic Measures SCDs Protonix Case management referral Community Health Nurse Supervisor referral <Rigoberto Barajas - Last Filed: 07/20/17 16:09> Objective - Vital Signs/Intake and Output Vital Signs (last 24 hours): Temp Pulse Resp BP Pulse Ox 97.0 F L 60 20 115/57 L 98 07/20/17 06:00 07/20/17 06:00 07/20/17 06:00 07/20/17 06:00 07/20/17 06:00 Intake and Output: 07/20/17 07/20/17 06:59 18:59 Intake Total 700 960 Output Total 0 Balance 700 960 - Medications Medications: Current Medications Benzocaine/Menthol (Cepacol Sore Throat) 1 umair MT Q2H PRN PRN Reason: Sore Throat Ergocalciferol (Drisdol 50,000 Intl Units Cap) 1 cap PO Q7D [facility] Last Admin: 07/20/17 10:01 Dose: 1 cap Iron Sucrose 100 mg/ Sodium (Chloride) 105 mls @ 210 mls/hr IVPB DAILY [facility] Stop: 07/21/17 10:29 Last Admin: 07/20/17 09:39 Dose: 210 mls/hr Lactulose (Enulose) 10 gm PO DAILY [facility] Last Admin: 07/20/17 09:55 Dose: Not Given Levothyroxine Sodium (Synthroid) 25 mcg PO 0600 [facility] Magnesium Hydroxide (Milk Of Magnesia) 30 ml PO DAILY PRN PRN Reason: skin excoriation Ondansetron HCl (Zofran Inj) 4 mg IVP Q6 PRN PRN Reason: Nausea/Vomiting Pantoprazole Sodium (Protonix Ec Tab) 40 mg PO DAILY [facility] Last Admin: 07/20/17 09:39 Dose: 40 mg - Labs Labs: PT 11.0 SECONDS (9.4-12.5) 07/18/17 21:00 INR 0.97 (0.93-1.08) 07/18/17 21:00 APTT 30.4 Seconds (25.1-36.5) 07/18/17 21:00 Attending/Attestation - Attestation I have personally seen and examined this patient.: Yes I have fully participated in the care of the patient.: Yes I have reviewed all pertinent clinical information, including history, physical exam and plan: Yes Notes (Text): 07/20/17 16:06 Patient was seen and examined with medical coding manager. 67 F with PMH of HTN, DM, Hypothyroidism, cachexia, s/p PEG tube, H/O functional dysphagia with recent negative GI and ENT work up is admitted with H/O odynophagia.Patient is eating food with out any problem.This was discussed with her , patient got upset and mad after this. Hyponatremia is chronic ,.Patient is asymptomatic.Refusing all work up. Severe anxiety, Case was discussed with Psychiatry .Patient and family are refusing Psychiatric admission. We will discuss with family regarding rehab/half-way placement. 07/20/17 16:09
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
[2017-07-21] MEDS: Levothyroxine 25 MCG TAB PO SCH (05:43)
[2017-07-21] MEDS: Pantoprazole 40 mg EC Tab PO SCH (09:00)
--- NOTE | 2017-07-21 10:38 | CP.PCM.PN ---
<Lupillo Cevallos - Last Filed: 07/21/17 10:33> Subjective - Date & Time of Evaluation Date of Evaluation: 07/21/17 Time of Evaluation: 06:00 - Subjective Subjective: Patient seen and evaluated bedside. No acute issues overnight. Patient says she is eating okay but not feeling well, says her throat hurts, says "im not crazy or stupid". denies chest pain, SOB, abdominal pain, fever, chills or any other complaints at this time. Objective - Vital Signs/Intake and Output Vital Signs (last 24 hours): Temp Pulse Resp BP Pulse Ox 98.2 F 62 20 112/55 L 99 07/21/17 09:17 07/21/17 09:17 07/21/17 09:17 07/21/17 09:17 07/21/17 09:17 - Medications Medications: Current Medications Benzocaine/Menthol (Cepacol Sore Throat) 1 umair MT Q2H PRN PRN Reason: Sore Throat Ergocalciferol (Drisdol 50,000 Intl Units Cap) 1 cap PO Q7D [facility] Last Admin: 07/20/17 10:01 Dose: 1 cap Lactulose (Enulose) 10 gm PO DAILY [facility] Last Admin: 07/21/17 08:59 Dose: Not Given Levothyroxine Sodium (Synthroid) 25 mcg PO 0600 [facility] Last Admin: 07/21/17 05:43 Dose: 25 mcg Magnesium Hydroxide (Milk Of Magnesia) 30 ml PO DAILY PRN PRN Reason: skin excoriation Ondansetron HCl (Zofran Inj) 4 mg IVP Q6 PRN PRN Reason: Nausea/Vomiting Pantoprazole Sodium (Protonix Ec Tab) 40 mg PO DAILY [facility] Last Admin: 07/21/17 09:00 Dose: 40 mg - Labs Labs: PT 11.0 SECONDS (9.4-12.5) 07/18/17 21:00 INR 0.97 (0.93-1.08) 07/18/17 21:00 APTT 30.4 Seconds (25.1-36.5) 07/18/17 21:00 - Constitutional Appears: Non-toxic, No Acute Distress, Unkempt, Older Than Stated Age - Head Exam Head Exam: ATRAUMATIC, NORMAL INSPECTION, NORMOCEPHALIC - Eye Exam Eye Exam: Periorbital tenderness - ENT Exam ENT Exam: Mucous Membranes Dry - Respiratory Exam Respiratory Exam: Clear to Ausculation Bilateral, NORMAL BREATHING PATTERN - Cardiovascular Exam Cardiovascular Exam: REGULAR RHYTHM - GI/Abdominal Exam GI & Abdominal Exam: Soft Additional comments: PEG tube in place with erythema - Extremities Exam Extremities Exam: absent: Pedal Edema, Tenderness - Neurological Exam Neurological Exam: Alert, Awake, Oriented x3 Assessment and Plan - Assessment and Plan (Free Text) Assessment: 67 year old female with past medical history of odynophagia, hypothyroidism, hyponatremia, HTN, DM, s/p PEG tube presented with hyponatrmiea after aid she was unresponsive at home. Plan: 1. Hyponatremia -patient still refusing f/u blood work -tolerating diet PO -Patient is chronically hyponatremic 2. Hypothyroidism -Patient has history of taking synthroid 50 daily. -Has been off of meds since at least one month -synthroid 25 daily 3. Agitation/Labile affect -Psych consulted. signed off, patient refused psychiatry admission 4. Constipation -Lactulose 10 mg PO daily PRN 5. Odynophagia -Patient able to eat and drink without difficultly 6. Erythema around PEG tube -wound cultures show staph aureus and psuedmonas -ID consulted, follow recs Prophylaxis SCDs Protonix Case management referral Hand Ornament Maker referral <Bandar Ibrahim - Last Filed: 07/21/17 11:55> Objective - Vital Signs/Intake and Output Vital Signs (last 24 hours): Temp Pulse Resp BP Pulse Ox 98.2 F 62 20 112/55 L 99 07/21/17 09:17 07/21/17 09:17 07/21/17 09:17 07/21/17 09:17 07/21/17 09:17 - Medications Medications: Current Medications Benzocaine/Menthol (Cepacol Sore Throat) 1 umair MT Q2H PRN PRN Reason: Sore Throat Ergocalciferol (Drisdol 50,000 Intl Units Cap) 1 cap PO Q7D [facility] Last Admin: 07/20/17 10:01 Dose: 1 cap Lactulose (Enulose) 10 gm PO DAILY [facility] Last Admin: 07/21/17 08:59 Dose: Not Given Levothyroxine Sodium (Synthroid) 25 mcg PO 0600 [facility] Last Admin: 07/21/17 05:43 Dose: 25 mcg Magnesium Hydroxide (Milk Of Magnesia) 30 ml PO DAILY PRN PRN Reason: skin excoriation Ondansetron HCl (Zofran Inj) 4 mg IVP Q6 PRN PRN Reason: Nausea/Vomiting Pantoprazole Sodium (Protonix Ec Tab) 40 mg PO DAILY [facility] Last Admin: 07/21/17 09:00 Dose: 40 mg - Labs Labs: PT 11.0 SECONDS (9.4-12.5) 07/18/17 21:00 INR 0.97 (0.93-1.08) 07/18/17 21:00 APTT 30.4 Seconds (25.1-36.5) 07/18/17 21:00 Attending/Attestation - Attestation I have personally seen and examined this patient.: Yes I have fully participated in the care of the patient.: Yes I have reviewed all pertinent clinical information, including history, physical exam and plan: Yes Notes (Text): 07/21/17 11:48 67 year old female with past medical history of hypertension, diabetes, hypothyroidism and functional dysphagia s/p PEG with recent negative GI/ENT workup who presented with odynophagia. She is tolerating eating food but complains of chronic throat pain. She has mild erythema around PEG site and wound culture grew Staph Aureus and Pseudomonas Aeriginosa. ID evaluation is requested. Psychiatry evaluation was appreciated. Patient refused inpatient psychiatry admission. Continue with PT; currently recommending [facility]. Will discuss regarding possible rehab or senior care options if patient / family agreeable. She had chronic hyponatremia but has been refusing labs for past few days. Bandar Ibrahim MD Hospitalist.
[2017-07-22 08:19] VITALS: RESP 20
[2017-07-22] MEDS: Levothyroxine 25 MCG TAB PO SCH (09:14)
[2017-07-22] MEDS: Pantoprazole 40 mg EC Tab PO SCH (09:15)
--- NOTE | 2017-07-22 11:04 | CP.PCM.PN ---
<NataliiaHerman - Last Filed: 07/22/17 11:12> Subjective - Date & Time of Evaluation Date of Evaluation: 07/22/17 Time of Evaluation: 10:55 - Subjective Subjective: Medicine progress note: Dr. Ibrahim Patient seen and examined at bedside. Was sleeping when we walked in, as soon as she was awakened patient complained of throat pain. Patient also asking for food tray. Otherwise offers no complaints at this time. No acute events overnight. Objective - Vital Signs/Intake and Output Vital Signs (last 24 hours): Temp Pulse Resp BP Pulse Ox 97 F L 56 L 20 126/56 L 100 07/22/17 08:20 07/22/17 08:20 07/22/17 08:20 07/22/17 08:20 07/22/17 08:20 - Medications Medications: Current Medications Benzocaine/Menthol (Cepacol Sore Throat) 1 umair MT Q2H PRN PRN Reason: Sore Throat Ergocalciferol (Drisdol 50,000 Intl Units Cap) 1 cap PO Q7D [facility] Last Admin: 07/20/17 10:01 Dose: 1 cap Lactulose (Enulose) 10 gm PO DAILY [facility] Last Admin: 07/22/17 09:15 Dose: Not Given Levothyroxine Sodium (Synthroid) 25 mcg PO 0600 [facility] Last Admin: 07/22/17 09:14 Dose: 25 mcg Magnesium Hydroxide (Milk Of Magnesia) 30 ml PO DAILY PRN PRN Reason: skin excoriation Ondansetron HCl (Zofran Inj) 4 mg IVP Q6 PRN PRN Reason: Nausea/Vomiting Pantoprazole Sodium (Protonix Ec Tab) 40 mg PO DAILY [facility] Last Admin: 07/22/17 09:15 Dose: 40 mg - Labs Labs: PT 11.0 SECONDS (9.4-12.5) 07/18/17 21:00 INR 0.97 (0.93-1.08) 07/18/17 21:00 APTT 30.4 Seconds (25.1-36.5) 07/18/17 21:00 - Constitutional Appears: Non-toxic, Agitated, Chronically Ill - Head Exam Head Exam: ATRAUMATIC, NORMAL INSPECTION, NORMOCEPHALIC - Eye Exam Eye Exam: EOMI, Normal appearance, PERRL Pupil Exam: NORMAL ACCOMODATION, PERRL - ENT Exam ENT Exam: Mucous Membranes Moist, Normal Exam - Neck Exam Neck Exam: Full ROM, Normal Inspection. absent: Lymphadenopathy - Respiratory Exam Respiratory Exam: Clear to Ausculation Bilateral, NORMAL BREATHING PATTERN - Cardiovascular Exam Cardiovascular Exam: REGULAR RHYTHM, +S1, +S2. absent: Murmur - GI/Abdominal Exam GI & Abdominal Exam: Soft, Normal Bowel Sounds. absent: Tenderness Additional comments: Patient has erythema and swelling around her PEG tube with foul odor; no drainage noted - Extremities Exam Extremities Exam: Full ROM, Normal Capillary Refill, Normal Inspection. absent : Joint Swelling, Pedal Edema - Back Exam Back Exam: NORMAL INSPECTION - Neurological Exam Neurological Exam: Alert, Awake, CN II-XII Intact, Normal Gait, Oriented x3 - Psychiatric Exam Psychiatric exam: Normal Affect, Normal Mood - Skin Skin Exam: Dry, Intact, Normal Color, Warm Assessment and Plan - Assessment and Plan (Free Text) Assessment: 67 year old female with past medical history of odynophagia, hypothyroidism, hyponatremia, HTN, DM, s/p PEG tube presented with hyponatrmiea after aid she was unresponsive at home. Patient's sodium level was 126 on admission , which is lower than the highest they have been but appears to be around patient's baseline. Patient refusing any workup at this time. Patient has history of hypothyroidism, history of 50 daily; TSH here is normal as well as free T4. Patient refusing psych admission for her agitation. Patient complains of odynophagia but workup has been negative and patient is tolerating PO diet. RE: her PEG tube infection, cultures show staph aureus and pseudomonas , both of which are sensitive to cipro. Patient has mild anemia, with low iron but normal ferritin. Plan: Chronic Hyponatremia - No intervention at this time Mild Anemia, likely 2/2 Iron Deficiency - No acute intervention at this time Hypothyroidism - Synthroid 25 daily Agitation/Labile affect - Psych signed off, patient refusing admission Constipation - Lactulose 10 mg PO daily PRN Odynophagia - No acute intervention Wound Infection - ID consulted, follow recs Prophylaxis - SCDs/Protonix Referrals: Case management, Paper Sealer <Bandar Ibrahim - Last Filed: 07/22/17 12:05> Objective - Vital Signs/Intake and Output Vital Signs (last 24 hours): Temp Pulse Resp BP Pulse Ox 97 F L 56 L 20 126/56 L 100 07/22/17 08:20 07/22/17 08:20 07/22/17 08:20 07/22/17 08:20 07/22/17 08:20 - Medications Medications: Current Medications Benzocaine/Menthol (Cepacol Sore Throat) 1 umair MT Q2H PRN PRN Reason: Sore Throat Ergocalciferol (Drisdol 50,000 Intl Units Cap) 1 cap PO Q7D [facility] Last Admin: 07/20/17 10:01 Dose: 1 cap Lactulose (Enulose) 10 gm PO DAILY [facility] Last Admin: 07/22/17 09:15 Dose: Not Given Levothyroxine Sodium (Synthroid) 25 mcg PO 0600 [facility] Last Admin: 07/22/17 09:14 Dose: 25 mcg Magnesium Hydroxide (Milk Of Magnesia) 30 ml PO DAILY PRN PRN Reason: skin excoriation Ondansetron HCl (Zofran Inj) 4 mg IVP Q6 PRN PRN Reason: Nausea/Vomiting Pantoprazole Sodium (Protonix Ec Tab) 40 mg PO DAILY [facility] Last Admin: 07/22/17 09:15 Dose: 40 mg - Labs Labs: PT 11.0 SECONDS (9.4-12.5) 07/18/17 21:00 INR 0.97 (0.93-1.08) 07/18/17 21:00 APTT 30.4 Seconds (25.1-36.5) 07/18/17 21:00 Attending/Attestation - Attestation I have personally seen and examined this patient.: Yes I have fully participated in the care of the patient.: Yes I have reviewed all pertinent clinical information, including history, physical exam and plan: Yes Notes (Text): 07/22/17 12:04 67 year old female with past medical history of hypertension, diabetes, hypothyroidism and functional dysphagia s/p PEG with recent negative GI/ENT workup who presented with odynophagia. She is complains of chronic throat pain but tolerating diet. She has mild erythema around PEG site and wound culture grew Staph Aureus and Pseudomonas Aeriginosa. ID evaluation is pending. She is afebrile without leukocytosis. Psychiatry evaluation was appreciated. Patient refused inpatient psychiatry admission. Continue with PT; currently recommending [facility]. Will discuss regarding possible rehab or jail options if patient / family agreeable. She had chronic hyponatremia but has been refusing labs for past few days. Bandra Ibrahim MD Hospitalist.
--- NOTE | 2017-07-22 19:53 | CON ---
DATE: 07/22/2017 LOCATION: The patient is in room 372, bed 1. CHIEF COMPLAINT: Positive culture from the abdominal wound for staph and pseudomonas x1 day. HISTORY OF PRESENT ILLNESS: This is a 67-year-old female who was seen in the emergency room by Dr. Bonnie Vargas on 07/18/2017. The patient presented with change in mental status and was found unresponsive without speaking initially and there is no history of trauma or injury, ingestion or overdose and the patient has a PEG tube, and infectious disease consultation requested because of cultures around the PEG tube are positive for staph and pseudomonas. REVIEW OF SYSTEMS: A 12-point review of system is performed. There has been no fevers, no chills. At this time, no difficulty eating. The patient is eating well according to the nursing staff. No diarrhea, abdominal pain, or constipation. No bright red blood per rectum. PAST MEDICAL HISTORY: Significant for hypertension, coronary artery disease, anxiety, depression, and diabetes. PAST SURGICAL HISTORY: Significant for PEG tube placement. ALLERGIES: THE PATIENT HAS NO KNOWN ALLERGIES. MEDICATIONS AT HOME: Not obtained at this time. PHYSICAL EXAMINATION: GENERAL: The patient is in bed, in no acute distress, chronically ill, cachectic, wasting syndrome. VITAL SIGNS: Temperature of 97, lowest temperature the patient had was 96; heart rate of 65; blood pressure is 130/80; respiratory rate of 19, was up to 20. HEENT: Unremarkable. NECK: Supple. LUNGS: Have decreased breath sounds. HEART: Normal S1, S2. No S3 or S4. No murmurs. ABDOMEN: Soft, nontender. The PEG tube site is clean. There is no discharge. No erythema. LABORATORY DATA: Reveals the white count is 4.8, hemoglobin of 10, platelets of 296. Coagulation is noted. Chemistry reveals the patient's creatinine is 0.5 and urinalysis at this point is negative. ASSESSMENT AND PLAN: This is a 67-year-old female with hypertension, coronary artery disease, anxiety, depression, diabetes with pseudomonas and sensitive Staphylococcus aureus from the wound culture, from a PEG tube, probably a colonization, no evidence of infection and no antibiotics are recommended for this patient. From an infectious disease point of view, the patient has no evidence of infection including the site of infection and case discussed with the nursing staff. Scotty Cobos MD
[2017-07-23] MEDS: Levothyroxine 25 MCG TAB PO SCH (05:27)
[2017-07-23 08:30] VITALS: BP 117/57; PULSE 55; TEMP 96.2; O2SAT 100
[2017-07-23] MEDS: Pantoprazole 40 mg EC Tab PO SCH (09:37)
--- NOTE | 2017-07-23 12:29 | CP.PCM.DIS ---
<Ousmane Mar - Last Filed: 07/23/17 13:32> Provider - Provider Date of Admission: 07/19/17 04:42 Attending physician: Bandar Ibrahim MD Primary care physician: Ramy Napier MD Consults: Psychiatry: Dr. Lopez Infectious disease: Dr. Cobos Time Spent in preparation of Discharge (in minutes): 40 Diagnosis - Discharge Diagnosis (1) Anxiety Status: Acute Priority: High (2) Hyponatremia Status: Acute Priority: Medium (3) Impaired swallowing associated with throat pain Status: Chronic Priority: Low Hospital Course - Lab Results Lab Results: Micro Results 07/19/17 16:50 Abdomen Gram Stain - Final 07/19/17 16:50 Abdomen Wound Culture - Final Pseudomonas Aeruginosa Staphylococcus Aureus Most Recent Lab Values WBC 4.8 10^3/ul (4.5-11.0) 07/18/17 21:00 RBC 4.02 10^6/uL (3.5-6.1) 07/18/17 21:00 Hgb 10.7 g/dL (12.0-16.0) L 07/18/17 21:00 Hct 32.0 % (36.0-48.0) L 07/18/17 21:00 MCV 79.6 fl (80.0-105.0) L 07/18/17 21:00 MCH 26.6 pg (25.0-35.0) 07/18/17 21:00 MCHC 33.4 g/dl (31.0-37.0) 07/18/17 21:00 RDW 14.3 % (11.5-14.5) 07/18/17 21:00 Plt Count 296 10^3/uL (120.0-450.0) 07/18/17 21:00 MPV 8.8 fl (7.0-11.0) 07/18/17 21:00 Gran % 51.7 % (50.0-68.0) 07/18/17 21:00 Lymph % (Auto) 37.0 % (22.0-35.0) H 07/18/17 21:00 [place] % (Auto) 9.3 % (1.0-6.0) H 07/18/17 21:00 Eos % (Auto) 1.2 % (1.5-5.0) L 07/18/17 21:00 Baso % (Auto) 0.8 % (0.0-3.0) 07/18/17 21:00 Gran # 2.50 (1.4-6.5) 07/18/17 21:00 Lymph # (Auto) 1.8 (1.2-3.4) 07/18/17 21:00 [place] # (Auto) 0.5 (0.1-0.6) 07/18/17 21:00 Eos # (Auto) 0.1 (0.0-0.7) 07/18/17 21:00 Baso # (Auto) 0.04 K/mm3 (0.0-2.0) 07/18/17 21:00 PT 11.0 SECONDS (9.4-12.5) 07/18/17 21:00 INR 0.97 (0.93-1.08) 07/18/17 21:00 APTT 30.4 Seconds (25.1-36.5) 07/18/17 21:00 Sodium 126 mmol/L (132-148) L 07/18/17 21:00 Potassium 5.0 mmol/L (3.6-5.0) 07/18/17 21:00 Chloride 89 mmol/L (98-107) L 07/18/17 21:00 Carbon Dioxide 29 mmol/L (21-33) 07/18/17 21:00 Anion Gap 13 (10-20) 07/18/17 21:00 BUN 10 mg/dL (7-21) 07/18/17 21:00 Creatinine 0.5 mg/dl (0.7-1.2) L 07/18/17 21:00 Est GFR ( Amer) > 60 07/18/17 21:00 Est GFR (Non-Af Amer) > 60 07/18/17 21:00 POC Glucose (mg/dL) 116 mg/dL (65-110) H 07/23/17 07:30 Random Glucose 108 mg/dL (70-110) 07/18/17 21:00 Calcium 8.9 mg/dL (8.4-10.5) 07/18/17 21:00 Magnesium 1.7 mg/dL (1.7-2.2) 07/18/17 21:00 Iron 33 ug/dL (45-180) L 07/19/17 Unknown TIBC 391 ug/dL (265-497) 07/19/17 Unknown % Saturation 8 % (20-55) L 07/19/17 Unknown Ferritin 15.4 ng/mL 07/19/17 13:14 Total Bilirubin 0.2 mg/dL (0.2-1.3) 07/18/17 21:00 AST 33 U/L (14-36) 07/18/17 21:00 ALT 21 U/L (7-56) 07/18/17 21:00 Alkaline Phosphatase 89 U/L (38-126) 07/18/17 21:00 Lactate Dehydrogenase 419 U/L (333-699) 07/18/17 21:00 Total Creatine Kinase 35 U/L (35-230) 07/18/17 21:00 Troponin I < 0.01 ng/mL 07/18/17 21:00 Total Protein 7.7 g/dL (5.8-8.3) 07/18/17 21:00 Albumin 3.9 g/dL (3.0-4.8) 07/18/17 21:00 Globulin 3.8 gm/dL 07/18/17 21:00 Albumin/Globulin Ratio 1.0 (1.1-1.8) L 07/18/17 21:00 Vitamin B12 543 pg/mL (239-931) 07/19/17 13:14 Folate > 20.0 ng/mL 07/19/17 13:14 Free T4 1.02 ng/dL (0.78-2.19) 07/19/17 13:14 Thyroxine (T4) 8.8 ug/dL (5.5-11.0) 07/18/17 21:00 TSH 3rd Generation 1.24 mIU/mL (0.46-4.68) 07/19/17 13:14 Urine Color Yellow (YELLOW) 07/18/17 20:38 Urine Appearance Sl cloudy (CLEAR) 07/18/17 20:38 Urine pH 7.0 (4.7-8.0) 07/18/17 20:38 Ur Specific [place] <= 1.005 (1.005-1.035) 07/18/17 20:38 Urine Protein Negative mg/dL (<30 mg/dL) 07/18/17 20:38 Urine Glucose (UA) Negative mg/dL (NEGATIVE) 07/18/17 20:38 Urine Ketones Negative mg/dL (NEGATIVE) 07/18/17 20:38 Urine Blood Negative (NEGATIVE) 07/18/17 20:38 Urine Nitrate Negative (NEGATIVE) 07/18/17 20:38 Urine Bilirubin Negative (NEGATIVE) 07/18/17 20:38 Urine Urobilinogen 0.2 E.U./dL (<1 E.U./dL) 07/18/17 20:38 Ur Leukocyte Esterase Trace Nathalia/uL (NEGATIVE) H 07/18/17 20:38 Urine RBC Negative /hpf (0-2) 07/18/17 20:38 Urine WBC 2 - 5 /hpf (0-6) 07/18/17 20:38 Ur Epithelial Cells 1 - 3 /hpf (0-5) 07/18/17 20:38 Urine Bacteria Few (NEG) 07/18/17 20:38 Urine Osmolality 199 mosm/kg (300-1000) L 07/19/17 19:16 Ur Random Sodium 45 meq/L 07/19/17 19:17 Urine Chloride 38 mmol/L (32-290) 07/19/17 19:16 Salicylates < 1 mg/dL (2.0-20.0) L 07/18/17 21:00 Urine Opiates Screen Negative (NEGATIVE) 07/18/17 20:38 Urine Methadone Screen Negative (NEGATIVE) 07/18/17 20:38 Acetaminophen < 10.0 ug/ml (10.0-20.0) L 07/18/17 21:00 Ur Barbiturates Screen Negative (NEGATIVE) 07/18/17 20:38 Ur Phencyclidine Scrn Negative (NEGATIVE) 07/18/17 20:38 Ur Amphetamines Screen Negative (NEGATIVE) 07/18/17 20:38 U Benzodiazepines Scrn Negative (NEGATIVE) 07/18/17 20:38 U Oth Cocaine Metabols Negative (NEGATIVE) 07/18/17 20:38 U Cannabinoids Screen Negative (NEGATIVE) 07/18/17 20:38 Alcohol, Quantitative < 10 mg/dL (0-10) 07/18/17 21:00 - Hospital Course Hospital Course: Patient is a 67 F with a past medical history of hypertension, NIDDM, hypothyroidism, cachexia, s/p PEG tube, odynophagia who presented from home with complaints from as patient being unresponsive. Patient states that this unusual state of being that occurred was due to her throat pain. Patient has a chronic complaint of throat pain, which was further evaluated by ENT via indirect nasal laryngoscopy which reveals normal larynx, normal epiglottis, no soft tissue swelling, normal vocal cords, no foreign body, normal vocal cord function. As far patient's hyponatremia, patient is not portraying symptoms such as seizures, dizziness, nausea, weakness. Patient is also refusing labs to be drawn to monitor her current condition. With patient being stable she is clear for discharge. Discussed with ENT patient's complaints of pain in throat upon swallowing which ENT states patient can follow up as outpatient. Patient also had cultures return positive for pseudomonas and staph aureus at the site of her PEG tube however ID said no antibiotic therapy was necessary. Discussed with patient's regarding ENT recommendations and states she can be discharged to home as he will be there to receive her and will follow up with the outpatient ENT visit. Case discussed with Dr. Patrice Mar PGY1 Discharge Exam - Head Exam Head Exam: ATRAUMATIC, NORMAL INSPECTION, NORMOCEPHALIC - Eye Exam Eye Exam: EOMI, Normal appearance - Respiratory Exam Respiratory Exam: NORMAL BREATHING PATTERN, UNREMARKABLE - Cardiovascular Exam Cardiovascular Exam: REGULAR RHYTHM, +S1, +S2 - GI/Abdominal Exam GI & Abdominal Exam: Normal Bowel Sounds Additional comments: PEG tube in place - Neurological Exam Neurological exam: Alert, CN II-XII Intact, Oriented x3 - Psychiatric Exam Psychiatric exam: Anxious, Normal Mood - Skin Skin Exam: Normal Color, Warm Discharge Plan - Discharge Medications Prescriptions: Ergocalciferol [Drisdol 50,000 Intl Units Cap] 1 cap PO Q7D #5 cap Levothyroxine [Synthroid] 25 mcg PO 0600 #14 tab Magnesium Hydroxide [Milk Of Magnesia] 30 ml PO DAILY PRN #5 udc PRN Reason: skin excoriation Pantoprazole [Protonix EC Tab] 40 mg PO DAILY #14 ect - Follow Up Plan Condition: FAIR Disposition: HOME/ ROUTINE Instructions: Hyponatremia (DC), Hyponatremia (GEN) Additional Instructions: Mrs. Pierre , thank you for letting us take care of you today. You were treated for your symptoms. The emergency medical care you received today was directed at your acute symptoms. If you were prescribed any medication, please fill it and take as directed. It may take several days for your symptoms to resolve. Return to the Emergency Department if your symptoms worsen, do not improve, or if you have any other problems. Please contact your doctor or call one of the physicians/clinics you have been referred to that are listed on the Patient Visit Information form that is included in your discharge packet. Bring any paperwork you were given at discharge with you along with any medications you are taking to your follow up visit. Our treatment cannot replace ongoing medical care by a primary care provider (PCP) outside of the emergency department. Please be sure to follow up with calling and scheduling an appointment with ENT Dr. Tom for further evaluation of your throat pain. Thank you for allowing the [facility] team to be part of your care today. If you had an X-Ray or CT scan: A Radiologist will review the ED reading if any change in treatment is needed we will contact you. If you had a blood, urine, or wound culture: It will take several days for the results, if any change in treatment is needed we will contact you. If you had an STI test: It will take 48 hours for the results. Please call after 1 week if you have not heard back. Referrals: Ramy Napier MD [Primary Care Provider] - Simon Tom DO [Staff Provider] - <Bandar Ibrahim - Last Filed: 07/23/17 14:27> Provider - Provider Date of Admission: 07/19/17 04:42 Attending physician: Bandar Ibrahim MD Primary care physician: Ramy Napier MD Hospital Course - Lab Results Lab Results: Micro Results 07/19/17 16:50 Abdomen Gram Stain - Final 07/19/17 16:50 Abdomen Wound Culture - Final Pseudomonas Aeruginosa Staphylococcus Aureus Most Recent Lab Values WBC 4.8 10^3/ul (4.5-11.0) 07/18/17 21:00 RBC 4.02 10^6/uL (3.5-6.1) 07/18/17 21:00 Hgb 10.7 g/dL (12.0-16.0) L 07/18/17 21:00 Hct 32.0 % (36.0-48.0) L 07/18/17 21:00 MCV 79.6 fl (80.0-105.0) L 07/18/17 21:00 MCH 26.6 pg (25.0-35.0) 07/18/17 21:00 MCHC 33.4 g/dl (31.0-37.0) 07/18/17 21:00 RDW 14.3 % (11.5-14.5) 07/18/17 21:00 Plt Count 296 10^3/uL (120.0-450.0) 07/18/17 21:00 MPV 8.8 fl (7.0-11.0) 07/18/17 21:00 Gran % 51.7 % (50.0-68.0) 07/18/17 21:00 Lymph % (Auto) 37.0 % (22.0-35.0) H 07/18/17 21:00 [place] % (Auto) 9.3 % (1.0-6.0) H 07/18/17 21:00 Eos % (Auto) 1.2 % (1.5-5.0) L 07/18/17 21:00 Baso % (Auto) 0.8 % (0.0-3.0) 07/18/17 21:00 Gran # 2.50 (1.4-6.5) 07/18/17 21:00 Lymph # (Auto) 1.8 (1.2-3.4) 07/18/17 21:00 [place] # (Auto) 0.5 (0.1-0.6) 07/18/17 21:00 Eos # (Auto) 0.1 (0.0-0.7) 07/18/17 21:00 Baso # (Auto) 0.04 K/mm3 (0.0-2.0) 07/18/17 21:00 PT 11.0 SECONDS (9.4-12.5) 07/18/17 21:00 INR 0.97 (0.93-1.08) 07/18/17 21:00 APTT 30.4 Seconds (25.1-36.5) 07/18/17 21:00 Sodium 126 mmol/L (132-148) L 07/18/17 21:00 Potassium 5.0 mmol/L (3.6-5.0) 07/18/17 21:00 Chloride 89 mmol/L (98-107) L 07/18/17 21:00 Carbon Dioxide 29 mmol/L (21-33) 07/18/17 21:00 Anion Gap 13 (10-20) 07/18/17 21:00 BUN 10 mg/dL (7-21) 07/18/17 21:00 Creatinine 0.5 mg/dl (0.7-1.2) L 07/18/17 21:00 Est GFR ( Amer) > 60 07/18/17 21:00 Est GFR (Non-Af Amer) > 60 07/18/17 21:00 POC Glucose (mg/dL) 116 mg/dL (65-110) H 07/23/17 07:30 Random Glucose 108 mg/dL (70-110) 07/18/17 21:00 Calcium 8.9 mg/dL (8.4-10.5) 07/18/17 21:00 Magnesium 1.7 mg/dL (1.7-2.2) 07/18/17 21:00 Iron 33 ug/dL (45-180) L 07/19/17 Unknown TIBC 391 ug/dL (265-497) 07/19/17 Unknown % Saturation 8 % (20-55) L 07/19/17 Unknown Ferritin 15.4 ng/mL 07/19/17 13:14 Total Bilirubin 0.2 mg/dL (0.2-1.3) 07/18/17 21:00 AST 33 U/L (14-36) 07/18/17 21:00 ALT 21 U/L (7-56) 07/18/17 21:00 Alkaline Phosphatase 89 U/L (38-126) 07/18/17 21:00 Lactate Dehydrogenase 419 U/L (333-699) 07/18/17 21:00 Total Creatine Kinase 35 U/L (35-230) 07/18/17 21:00 Troponin I < 0.01 ng/mL 07/18/17 21:00 Total Protein 7.7 g/dL (5.8-8.3) 07/18/17 21:00 Albumin 3.9 g/dL (3.0-4.8) 07/18/17 21:00 Globulin 3.8 gm/dL 07/18/17 21:00 Albumin/Globulin Ratio 1.0 (1.1-1.8) L 07/18/17 21:00 Vitamin B12 543 pg/mL (239-931) 07/19/17 13:14 Folate > 20.0 ng/mL 07/19/17 13:14 Free T4 1.02 ng/dL (0.78-2.19) 07/19/17 13:14 Thyroxine (T4) 8.8 ug/dL (5.5-11.0) 07/18/17 21:00 TSH 3rd Generation 1.24 mIU/mL (0.46-4.68) 07/19/17 13:14 Urine Color Yellow (YELLOW) 07/18/17 20:38 Urine Appearance Sl cloudy (CLEAR) 07/18/17 20:38 Urine pH 7.0 (4.7-8.0) 07/18/17 20:38 Ur Specific [place] <= 1.005 (1.005-1.035) 07/18/17 20:38 Urine Protein Negative mg/dL (<30 mg/dL) 07/18/17 20:38 Urine Glucose (UA) Negative mg/dL (NEGATIVE) 07/18/17 20:38 Urine Ketones Negative mg/dL (NEGATIVE) 07/18/17 20:38 Urine Blood Negative (NEGATIVE) 07/18/17 20:38 Urine Nitrate Negative (NEGATIVE) 07/18/17 20:38 Urine Bilirubin Negative (NEGATIVE) 07/18/17 20:38 Urine Urobilinogen 0.2 E.U./dL (<1 E.U./dL) 07/18/17 20:38 Ur Leukocyte Esterase Trace Nathalia/uL (NEGATIVE) H 07/18/17 20:38 Urine RBC Negative /hpf (0-2) 07/18/17 20:38 Urine WBC 2 - 5 /hpf (0-6) 07/18/17 20:38 Ur Epithelial Cells 1 - 3 /hpf (0-5) 07/18/17 20:38 Urine Bacteria Few (NEG) 07/18/17 20:38 Urine Osmolality 199 mosm/kg (300-1000) L 07/19/17 19:16 Ur Random Sodium 45 meq/L 07/19/17 19:17 Urine Chloride 38 mmol/L (32-290) 07/19/17 19:16 Salicylates < 1 mg/dL (2.0-20.0) L 07/18/17 21:00 Urine Opiates Screen Negative (NEGATIVE) 07/18/17 20:38 Urine Methadone Screen Negative (NEGATIVE) 07/18/17 20:38 Acetaminophen < 10.0 ug/ml (10.0-20.0) L 07/18/17 21:00 Ur Barbiturates Screen Negative (NEGATIVE) 07/18/17 20:38 Ur Phencyclidine Scrn Negative (NEGATIVE) 07/18/17 20:38 Ur Amphetamines Screen Negative (NEGATIVE) 07/18/17 20:38 U Benzodiazepines Scrn Negative (NEGATIVE) 07/18/17 20:38 U Oth Cocaine Metabols Negative (NEGATIVE) 07/18/17 20:38 U Cannabinoids Screen Negative (NEGATIVE) 07/18/17 20:38 Alcohol, Quantitative < 10 mg/dL (0-10) 07/18/17 21:00 Attending/Attestation - Attestation I have personally seen and examined this patient.: Yes I have fully participated in the care of the patient.: Yes I have reviewed all pertinent clinical information, including history, physical exam and plan: Yes Notes (Text): 07/23/17 14:23 67 year old female with past medical history of hypertension, diabetes, hypothyroidism and functional dysphagia s/p PEG with recent negative GI/ENT workup who presented with odynophagia. She complained of chronic throat pain but has been tolerating diet. She was seen by Speech and Swallow. Discussed with ENT who recommended outpatient follow up. She was seen by psychiatry but refused inpatient psychiatric admission. PT initially recommended [facility]. However patient refused. She is ambulating around the unit and states she is at her baseline. She has a PEG and wound culture grew Staph Aureus and Pseudomonas Aeriginosa. ID evaluation was appreciated and recommended to observe off antibiotics; likely colonization. She was afebrile without leukocytosis. She had chronic hyponatremia but has been refusing labs for past few days including today. Patient will be discharged home today. Follow up with pmd or new pmd of choice. Follow up with ENT. Plan of care was discussed with today. Bandar Ibrahim MD Hospitalist.
--- NOTE | 2017-07-23 12:47 | CP.PCM.PN ---
Subjective - Date & Time of Evaluation Date of Evaluation: 07/23/17 Time of Evaluation: 11:10 - Subjective Subjective: Comfortable in bed, no fevers, not in distress. Objective - Vital Signs/Intake and Output Vital Signs (last 24 hours): Temp Pulse Resp BP Pulse Ox 96.2 F L 55 L 20 117/57 L 100 07/23/17 08:27 07/23/17 08:27 07/23/17 08:27 07/23/17 08:27 07/23/17 08:27 - Medications Medications: Current Medications Benzocaine/Menthol (Cepacol Sore Throat) 1 umair MT Q2H PRN PRN Reason: Sore Throat Ergocalciferol (Drisdol 50,000 Intl Units Cap) 1 cap PO Q7D [facility] Last Admin: 07/20/17 10:01 Dose: 1 cap Lactulose (Enulose) 10 gm PO DAILY [facility] Last Admin: 07/23/17 09:36 Dose: 10 gm Levothyroxine Sodium (Synthroid) 25 mcg PO 0600 [facility] Last Admin: 07/23/17 05:27 Dose: 25 mcg Magnesium Hydroxide (Milk Of Magnesia) 30 ml PO DAILY PRN PRN Reason: skin excoriation Ondansetron HCl (Zofran Inj) 4 mg IVP Q6 PRN PRN Reason: Nausea/Vomiting Pantoprazole Sodium (Protonix Ec Tab) 40 mg PO DAILY [facility] Last Admin: 07/23/17 09:37 Dose: 40 mg - Labs Labs: PT 11.0 SECONDS (9.4-12.5) 07/18/17 21:00 INR 0.97 (0.93-1.08) 07/18/17 21:00 APTT 30.4 Seconds (25.1-36.5) 07/18/17 21:00 - Constitutional Appears: Non-toxic, Chronically Ill - Head Exam Head Exam: NORMAL INSPECTION - Respiratory Exam Respiratory Exam: Decreased Breath Sounds - Cardiovascular Exam Cardiovascular Exam: +S1, +S2 - GI/Abdominal Exam GI & Abdominal Exam: Soft. 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
--- NOTE | 2017-07-24 13:51 | PQF GENQUE ---
07/24/17 Dr. Ibrahim, Discharge summary states that patient had an indirect nasal laryngoscopy by ENT physician and indicates the findings. However, I do not see this procedure on this chart. Was the nasal laryngoscopy done on this admission? Thank you. Clarification of your documentation is requested to better reflect the severity of illness and intensity of treatment of your patient. Indicators present [] Specify: [] [] Specify: [] [] Specify: [] [] Specify: [] Location in the medical record that reflects the above clinical findings: [] Treatment Provided: [] PHYSICIAN'S RESPONSE Based on your medical judgment of the clinical indicators outlined above please clarify the following: [] Practitioner response [] If unable to determine, please check the box, sign and date. Present On Admission (POA) Indicator: [] Present at the time of admission [] Not present at the time of admission [] Clinically Undetermined Laryngoscopy was done not on this admission but a recent prior admission. In responding to this query, please exercise your independent professional judgment. The fact that a question is asked does not imply that any particular answer is desired or expected. Thank you for your clarification on this documentation. 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
== END 2017-07-23 16:49 | disposition home or self-care (01) | DRG 392 ==
LOC: ED 19:25 → ERH 07-19 04:42 → 3RSO 07-19 05:37
PROVIDERS: ADMIT Internal Medicine Nephrology; ATTEND Internal Medicine
DX: R13.10 Dysphagia, unspecified (principal); E87.1 Hypo-osmolality and hyponatremia; F41.0 Panic disorder [episodic paroxysmal anxiety]; F31.9 Bipolar disorder, unspecified; D64.9 Anemia, unspecified; E03.9 Hypothyroidism, unspecified; E11.22 Type 2 diabetes mellitus with diabetic chronic kidney disease; E11.43 Type 2 diabetes mellitus with diabetic autonomic (poly)neuropathy; H40.9 Unspecified glaucoma; I12.9 Hypertensive chronic kidney disease with stage 1 through stage 4 chronic kidney disease, or unspecified chronic kidney disease; I25.10 Atherosclerotic heart disease of native coronary artery without angina pectoris; K31.84 Gastroparesis; K59.00 Constipation, unspecified; N18.9 Chronic kidney disease, unspecified; Z87.11 Personal history of peptic ulcer disease; Z93.1 Gastrostomy status; A49.01 Methicillin susceptible Staphylococcus aureus infection, unspecified site

== ENCOUNTER 2017-07-24 06:36 | Inpatient (IN) | payer MEDICARE, OTHER ==
[2017-07-24] MEDS ORDERED: Morphine 4 mg/ml ISec IVP STA (07:34)
[2017-07-24] MEDS ORDERED: Sodium Chloride 0.9% 1,000 ML IV STA ×4 (07:34→09:10)
[2017-07-24 07:55] LABS: BASO # 0.01 K/mm3 (0.0-2.0); BASO % 0.1 % (0.0-3.0); GRAN # 18.06 (1.4-6.5); HEMOGLOBIN 11.3 g/dL (12.0-16.0); LYMPH # 0.6 (1.2-3.4); LYMPH % 2.9 % (22.0-35.0); MEAN CELL VOLUME 74.9 fl (80.0-105.0); MEAN CORPUSCULAR HEMOGLOBIN 26.5 pg (25.0-35.0); MEAN CORPUSCULAR HGB CONC 35.3 g/dl (31.0-37.0); MEAN PLATELET VOLUME 8.6 fl (7.0-11.0); MONO # 0.6 (0.1-0.6); PLATELET COUNT 411 10^3/uL (120.0-450.0); RBC 4.27 10^6/uL (3.5-6.1); RED CELL DISTRIBUTION WIDTH 13.6 % (11.5-14.5); WHITE BLOOD COUNT 19.2 10^3/ul (4.5-11.0)
[2017-07-24 08:12] LABS: ALB/GLOB RATIO 1.2 (1.1-1.8); ALBUMIN 4.6 g/dL (3.0-4.8); ALT/SGPT 33 U/L (7-56); AST/SGOT 44 U/L (14-36); BLOOD UREA NITROGEN 7 mg/dL (7-21); GFR AFRICAN-AMERICAN > 60; GFR NON-AFRICAN AMERICAN > 60
--- NOTE | 2017-07-24 08:16 | RAD ---
PROCEDURE: CHEST RADIOGRAPH, 1 VIEW HISTORY: fall, AMS, r/o PNA COMPARISON: 07/18/2017 FINDINGS: LUNGS: Clear. PLEURA: No pneumothorax or pleural fluid seen. CARDIOVASCULAR: Normal. OSSEOUS STRUCTURES: No significant abnormalities. VISUALIZED UPPER ABDOMEN: Normal. OTHER FINDINGS: None. IMPRESSION: No active disease.
--- NOTE | 2017-07-24 08:17 | ED PDOC ---
Arrival/HPI <Alber Almaguer - Last Filed: 07/24/17 09:28> - History of Present Illness Time/Duration: Prior to Arrival Symptom Onset: Sudden Symptom Course: Worsening Severity Level: Severe Activities at Onset: Rest Context: Home <Aung Wharton - Last Filed: 07/24/17 11:27> - General Chief Complaint: Groin Pain Time Seen by Provider: 07/24/17 07:10 - History of Present Illness Narrative History of Present Illness (Text): 07/24/17 08:10 This is a 67 F with PMH of HTN, DM, Hypothyroidism, cachexia, s/p PEG tube, and chronic throat pain/odynophagia with negative nasal laryngoscopy who represents [place] [facility] [place] with report of fall. HPI/ROS limited to information provided by EMS, as patient is currently altered. As per EMS, were called after patient experienced a fall at home. No family present with patient on arrival, and calls to daughter (Jayda Pierre) go to voicemail. Patient was discharged yesterday, and as per Hospitalist team who discharged her, was conversant yesterday in [place]an and [place]er, answering questions appropriately and following commands. On exam today, however, patient is minimal conversant in [place]an/[place] Islander, responding to staff speaking in both with "I don't understand" repeatedly. Her only consistent complains are throat pain and right hip pain, with repeated statements of "no moving" while pointing to Right hip. Patient is holding right hip partially flexed, bent at knee, and cries out in pain with any movement (self or by staff) of the leg, resists any attempted movement by staff. PMH: HTN, DM, Hypothyroidism, cachexia, odynophagia PSH: PEG tube FH: unknown Social: denies tobacco/EtOH/illicit drugs use PMD: Previously Dr Napier, unclear if has one now (Alber Almaguer) Past Medical History - Past History Past History: No Previous - Infectious Disease Hx of Infectious Diseases: None - Tetanus Immunization Tetanus Immunization: Unknown - Past Medical History Past Medical History: Non-Contributing - Cardiac Hx Cardiac Disorders: Yes Hx Hypertension: Yes - Pulmonary Hx Respiratory Disorders: No - Neurological Hx Neurological Disorder: No - HEENT Hx Difficulty Chewing: Yes Hx Glaucoma: Yes - Renal Hx Renal Disorder: Yes (URINARY RETENTION 07-10-17) - Endocrine/Metabolic Hx Diabetes Mellitus Type 2: Yes Hx Hypothyroidism: Yes - Hematological/Oncological Hx Cancer: No - Integumentary Hx Dermatological Disorder: Yes - Musculoskeletal/Rheumatological Hx Musculoskeletal Disorders: Yes Hx Falls: Yes - Gastrointestinal Hx Gastroesophageal Reflux: Yes - Genitourinary/Gynecological Hx Genitourinary Disorders: Yes (C/S X 2) - Psychiatric Hx Psychophysiologic Disorder: Yes Hx Anxiety: Yes Hx Bipolar Disorder: Yes Hx Depression: Yes Hx Panic Disorder: Yes Hx Substance Use: No - Past Surgical History Past Surgical History: No Previous - Surgical History Hx Cardiac Catheterization: Yes Hx Coronary Stent: No - Anesthesia Hx Anesthesia Reactions: No Hx Malignant Hyperthermia: No - Suicidal Assessment Feels Threatened In Home Enviroment: No <Alber Almaguer - Last Filed: 07/24/17 09:28> - Provider Review Nursing Documentation Reviewed: Yes - Travel History Have you recently traveled outside [place] w/in the past 3 mons?: No - Reproductive Menopause: Yes Currently : No <Aung Wharton - Last Filed: 07/24/17 11:27> Family/Social History Family/Social History: Unknown Family HX Smoking Status: Unknown If Ever Smoked Hx Alcohol Use: No Hx Substance Use: No Hx Substance Use Treatment: No <Alber Almaguer - Last Filed: 07/24/17 09:28> - Physician Review Nursing Documentation Reviewed: Yes <Aung Wharton - Last Filed: 07/24/17 11:27> Allergies/Home Meds <Alber Almaguer - Last Filed: 07/24/17 09:28> <Aung Wharton - Last Filed: 07/24/17 11:27> Allergies/Adverse Reactions: Allergies No Known Allergies Allergy (Verified 07/18/17 19:33) Review of Systems - Review of Systems Systems not reviewed;Unavailable: Altered Mental Status <Alber Almaguer - Last Filed: 07/24/17 09:28> - Physician Review All systems were reviewed & negative as marked: Yes - Review of Systems Constitutional: Fatigue Eyes: Normal ENT: Other (persistent throat pain) Respiratory: absent: SOB Cardiovascular: absent: Chest Pain Gastrointestinal: Normal Genitourinary Female: Normal Musculoskeletal: Other (right hip pain) Skin: Normal Neurological: Normal Endocrine: Normal Hemo/Lymphatic: Normal Psychiatric: Normal <Aung Wharton - Last Filed: 07/24/17 11:27> Physical Exam - Physical Exam Physical Exam Limitations: Altered Mental Status, Uncooperative Vital Signs Reviewed: Yes Temperature: Afebrile Blood Pressure: Normal Pulse: Regular Respiratory Rate: Normal Appearance: Positive for: Ill-Appearing, Uncomfortable (pain in right hip chronically, complaining of pain in throat) Pain Distress: Moderate Mental Status: Positive for: Confused (repeating same 2-3 phrases chronically, repeats "don't understand" when spoken to in [place]an AND [place] Islander), Lethargic - Systems Exam Head: Present: Atraumatic, Normocephalic. No: Contusion, Swelling, Ecchymosis, Abrasion, Laceration Pupils: Present: PERRL. No: Sluggish, Non-Reactive, Pinpoint Extroacular Muscles: Present: Other (not following commands for EOMI testing, but is able to track staff throughout room, track between multiple staff members when present) Conjunctiva: Present: Normal. No: Injected, Icteric Mouth: Present: Dry, Normal Lips. No: Moist Mucous Membranes, Drooling Pharnyx: Present: Normal, Other (complains of throat pain, but normal exam). No : ERYTHEMA, EXUDATE, TONSILS ENLARGED, Peritonsilar Swelling, Uvular Deviation, Muffled/Hoarse Voice, Strider, Soft Palate/Uvular Edema Nose (External): Present: Atraumatic. No: Abrasion, Laceration Nose (Internal): Present: Normal Inspection, No Active Bleeding. No: Epistaxis Neck: Present: Normal Range of Motion. No: JVD Respiratory/Chest: Present: Clear to Auscultation, Good Air Exchange. No: Respiratory Distress, Accessory Muscle Use, Decreased Breath Sounds, Rhonchi, Tachypneic Cardiovascular: Present: Regular Rate and Rhythm, Normal S1, S2, Peripheal Pulses Present (+2 radials and dorsalis pedis bilaterally). No: Murmurs, Irregular Rhythm Abdomen: Present: Normal Bowel Sounds, Feeding Tubes (peg tube in place). No: Tenderness, Distention Upper Extremity: Present: Normal Inspection, Normal ROM, NORMAL PULSES. No: Cyanosis, Edema, Tenderness, Swelling, Erythema Lower Extremity: Present: NORMAL PULSES. No: Normal Inspection, Edema, CALF TENDERNESS, Normal ROM (left LE normal passive ROM, RLE unable to passively move as patient resists and cries in pain with any movement, patient holding RLE hip flexed/knee bent) Neurological: Present: Other (awake and alert, not following any commands, altered mental status, repeating 2-3 phrases, moving bilateral UE and LLE spontaneously, holding RLE in place due to pain) Skin: Present: Warm, Dry, Normal Color. No: Rashes Psychiatric: Present: Alert. No: Oriented x 3 (AMS, not following commands or answering questions), Normal Insight, Normal Concentration <Alber Almaguer - Last Filed: 07/24/17 09:28> Blood Pressure: Hypertensive Pulse: Bradycardic <DioAung - Last Filed: 07/24/17 11:27> Vital Signs Temp Pulse Resp BP Pulse Ox 07/24/17 10:55 97.9 F 63 20 150/75 99 07/24/17 09:25 60 18 160/93 H 99 07/24/17 07:54 60 18 166/113 H 99 07/24/17 07:05 97.5 F L 64 18 162/81 H 98 07/24/17 07:00 98.4 F 59 L 16 162/81 H 96 Medical Decision Making - Critical Care Critical Care Minutes: 45 minutes <Alber Almaguer - Last Filed: 07/24/17 09:28> Re-evaluation Time: 10:00 Reassessment Condition: Unchanged - Critical Care Critical Care Time: Excluding Proc Time - Lab Interpretations I have reviewed the lab results: Yes Interpretation: Abnormal lab values (abnl sodium; elevated wbcs) - RAD Interpretation Arborer: Radiologist - EKG Interpretation Interpreted by ED Physician: Yes Type: 12 lead EKG Comparison: Similar to previous EKG <DioAung - Last Filed: 07/24/17 11:27> ED Course and Treatment: Plan: r/o fx, + ams, r/o electrolyte changes; r/o infection -- EKG -- Labs -- Chest X-ray -- CT Head -- Hip x-ray -- Urinalysis -- Heparin, Magnesium, Maxipime, Morphine, Potassium Chloride, Rocephin, Vancomycin, Sodium Chloride -- Reassess and disposition Progress Notes: resident Campo attempt to contact family members without success; unable to confirm pt's HPI paging Dr Shi, states he is in the OR and if another orthopedists can take the case 900 - resident spoke to ICU attending, made aware, will see patient I spoke to Dr Ibrahim, hospitalists monorail car operator, made aware, agrees with admission Dr Villegas, ICU attending, at bedside, will admit patient to the ICU Dr Del Toro (ortho) made aware, will see patient 1000 Dr Del Toro is at bedside, will likely take patient to the OR upon pt's medical clearance attempt to reach family member remains unsuccessful pt will be admitted to the hospital for further medical care 07/24/17 I performed the hx and physical exam of the patient and discussed their mgt with the RESIDENT. I reviewed the RESIDENT's NOTE and agree with the assessment and plan of care. pt is awake/alert, + uncomfortable appearing per discharge resident, pt is altered (Aung Wharton) - Critical Care Narrative Critical Care (Text): 07/24/17 08:15 Concern for possible AMS given report of normal [place]an/[place] Islander speech yesterday , plus fall of unclear etiology, and possible Hip Fx. Obtain CBC, CMP, Mg, Phos , CXR, Head CT, Hip/Pelvis X-rays, UA, pending results and disposition. 07/24/17 09:31 Hip X-ray notable for R subcapital displaced fx, Ortho consulted (Dr. Yu) and aware CXR negative for acute issue, Head CT negative for acute issue Labs concerning for hypoNa of 110, was 126 on 07/18/16 (last available result, pt refused further draws as per primary team). Acutely concerning in setting of AMS and fall of unclear etiology. Labs also concerning for WBCs 19.2, but no clear source, and hypo K (3.4) and hypoMg (1.2), repleting each. Urine electrolytes, blood and urine cultures, and empiric coverage with rocephin/ vanco ordered. ED attending spoke with hospitalist (Dr. Ibrahim) who accepted for admission. Requests ICU consult given severity of hypoNa. Spoke with Intesivist on consult (Dr. Villegas), who evaluated patient and accepted to ICU. He also requested patient be switched from Rocephin to Cefepime, given severity of condition and multiple recent hospitalizations. Seen and reviewed with attending, Dr. Wharton. (Alber Almaguer) critical care time: 45min, excluding procedure time, excluding time teaching residents/students/mid-level providers; including initial eval/diagnosis, diagnostic interpretation, re-eval, consultations, final disposition (Aung Wharton) - Lab Interpretations Lab Results: 07/24/17 07:45 07/24/17 07:45 Lab Results 07/24/17 09:30: pCO2 31 L, pO2 86.0, HCO3 20.1 L, ABG pH 7.42, ABG Total CO2 21.1 L, ABG O2 Saturation 99.5 H, ABG Base Excess -3.4 L, ABG Potassium 2.3 L*, Glucose 108 H, Lactate 0.7, FiO2 21.0, Sodium 120.0 L*, Chloride 92.0 L, Arterial Blood Potassium 2.3 L* 07/24/17 09:20: Ur Random Creatinine 12, Ur Random Sodium 114 07/24/17 09:20: Urine Osmolality 355, Ur Random Urea Nitrogn 195 07/24/17 08:30: Troponin I 0.04 D 07/24/17 08:30: Serum Osmolality 229 L, TSH 3rd Generation 4.57 07/24/17 08:30: Urine Color Yellow, Urine Appearance Clear, Urine pH 8.0, Ur Specific [place] 1.010, Urine Protein Trace H, Urine Glucose (UA) 250 H, Urine Ketones Negative, Urine Blood Trace-intact H, Urine Nitrate Negative, Urine Bilirubin Negative, Urine Urobilinogen 0.2, Ur Leukocyte Esterase Negative, Urine RBC 2 - 5, Urine WBC 0 - 2, Ur Epithelial Cells 3 - 4, Urine Bacteria Few 07/24/17 07:45: Sodium 110 L*, Potassium 3.4 L, Chloride 73 L, Carbon Dioxide 24 , Anion Gap 17, BUN 7, Creatinine 0.4 L, Est GFR ( Amer) > 60, Est GFR ( Non-Af Amer) > 60, Random Glucose 167 H, Calcium 9.0, Phosphorus 2.9, Magnesium 1.2 L, Total Bilirubin 0.6, AST 44 H D, ALT 33, Alkaline Phosphatase 113, Total Protein 8.5 H, Albumin 4.6, Globulin 3.9, Albumin/Globulin Ratio 1.2 07/24/17 07:45: WBC 19.2 H D, RBC 4.27, Hgb 11.3 L, Hct 32.0 L, MCV 74.9 L D, MCH 26.5, MCHC 35.3, RDW 13.6, Plt Count 411, MPV 8.6, Gran % 94.0 H, Lymph % ( Auto) 2.9 L, [place] % (Auto) 3.0, Eos % (Auto) 0.0 L, Baso % (Auto) 0.1, Gran # 18.06 H, Lymph # (Auto) 0.6 L, [place] # (Auto) 0.6, Eos # (Auto) 0.0, Baso # (Auto ) 0.01, Neutrophils % (Manual) 90 H, Band Neutrophils % 1, Lymphocytes % (Manual ) 5 L, Monocytes % (Manual) 4, Platelet Evaluation Normal - RAD Interpretation Narrative RAD Interpretations (Text): 07/24/17 09:00 Hip/Pelvis x-ray: Creator : Harsha Lima MD FINDINGS: There is a displaced subcapital fracture of the right hip.The left hip is unremarkable. There are no pelvic fractures IMPRESSION: There is a displaced subcapital fracture of the right hip. 07/24/17 09:00 Chest X-ray: Creator : Harsha Lima MD COMPARISON: 07/18/2017 FINDINGS: LUNGS: Clear. PLEURA: No pneumothorax or pleural fluid seen. CARDIOVASCULAR: Normal. OSSEOUS STRUCTURES: No significant abnormalities. VISUALIZED UPPER ABDOMEN: Normal. OTHER FINDINGS: None. IMPRESSION: No active disease. 07/24/17 09:[address]: Creator : Harsha Lima MD COMPARISON: 07/18/2017 FINDINGS: HEMORRHAGE: No intracranial hemorrhage. BRAIN: No mass effect or edema. No atrophy or chronic microvascular ischemic changes. VENTRICLES: Unremarkable. No hydrocephalus. CALVARIUM: Unremarkable. PARANASAL SINUSES: Unremarkable as visualized. No significant inflammatory changes. MASTOID AIR CELLS: Unremarkable as visualized. No inflammatory changes. OTHER FINDINGS: None. IMPRESSION: No acute findings (Aung Wharton) Radiology Orders: 07/24/17 07:29 HIP MIN 5V W/ PELVIS LATIA [RAD] Stat 07/24/17 07:48 HEAD W/O CONTRAST [CT] Stat CXR [CHEST ONE VIEW] [RAD] Stat - EKG Interpretation EKG Interpretation (Text): 07/24/17 11:20 NSR at 65 bpm, normal axis, no ectopy, poor baseline, non specific st-t changes , ABNL EKG; (Aung Wharton) - Medication Orders Current Medication Orders: Heparin Sodium (Porcine) (Heparin) 5,000 units SC Q12H LAUREN PRN Reason: Protocol Last Admin: 07/24/17 10:03 Dose: 5,000 units Subcutaneous Administrations Document 07/24/17 10:03 SRE (Rec: 07/24/17 10:04 SRE [id number]) Injection Site MAR Injection Site Left Abdomen Charges for Administration # of Subcutaneous Administrations 1 Magnesium 2 gm/50 ml NS (Magnesium Sulfate 2 Gm/50 Ml Ns) 2 gm in 50 mls @ 50 mls/hr IVPB Q2H LAUREN Stop: 07/24/17 11:44 Last Admin: 07/24/17 08:54 Dose: 50 mls/hr eMAR Start Stop Document 07/24/17 08:54 SRE (Rec: 07/24/17 09:03 SRE [id number]) Intravenous Solution Start Date 07/24/17 Start Time 08:55 End Date 07/24/17 End time 09:55 Total Infusion Time 60 Sodium Chloride (Sodium Chloride 0.9%) 1,000 mls @ 150 mls/hr IV .Q6H40M STA Stop: 07/24/17 14:31 Last Admin: 07/24/17 10:04 Dose: 150 mls/hr eMAR Start Stop Document 07/24/17 10:04 SRE (Rec: 07/24/17 10:04 SRE [id number]) Intravenous Solution Start Date 07/24/17 Start Time 10:04 Cefepime HCl (Maxipime 1gm) 1 gm in 100 mls @ 100 mls/hr IVPB Q8 LAUREN PRN Reason: Protocol Discontinued Medications Sodium Chloride (Sodium Chloride 0.9%) 1,000 mls @ 999 mls/hr IV .Q1H1M STA Stop: 07/24/17 08:34 Last Admin: 07/24/17 07:51 Dose: 999 mls/hr eMAR Start Stop Document 07/24/17 07:51 SRE (Rec: 07/24/17 07:52 SRE [id number]) Intravenous Solution Start Date 07/24/17 Start Time 07:51 End Date 07/24/17 End time 08:50 Total Infusion Time 59 Sodium Chloride (Sodium Chloride 0.9%) 1,000 mls @ 500 mls/hr IV .Q2H STA Stop: 07/24/17 09:33 Sodium Chloride (Sodium Chloride 0.9%) 1,000 mls @ 250 mls/hr IV .Q4H STA Stop: 07/24/17 11:48 Last Admin: 07/24/17 09:23 Dose: 250 mls/hr eMAR Start Stop Document 07/24/17 09:23 SRE (Rec: 07/24/17 09:24 SRE [id number]) Intravenous Solution Start Date 07/24/17 Start Time 09:23 End Date 07/24/17 Ceftriaxone Sodium (Rocephin 2 Gm Ivpb) 2 gm in 100 mls @ 100 mls/hr IVPB STAT STA PRN Reason: Protocol Stop: 07/24/17 09:21 Last Admin: 07/24/17 09:21 Dose: 100 mls/hr eMAR Start Stop Document 07/24/17 09:21 SRE (Rec: 07/24/17 09:22 SRE [id number]) Intravenous Solution Start Date 07/24/17 Start Time 09:15 End Date 07/24/17 End time 10:15 Total Infusion Time 60 Vancomycin HCl (Vancomycin 1gm) 1 gm in 250 mls @ 167 mls/hr IVPB STAT STA PRN Reason: Protocol Stop: 07/24/17 09:51 Last Admin: 07/24/17 10:12 Dose: 167 mls/hr eMAR Start Stop Document 07/24/17 10:12 SRE (Rec: 07/24/17 10:16 SRE [id number]) Intravenous Solution Start Date 07/24/17 Start Time 10:16 End Date 07/24/17 End time 11:45 Total Infusion Time 89 Potassium Chloride (Potassium Chloride 20 Meq/100 Ml) 20 meq in 100 mls @ 50 mls/hr IVPB ONCE ONE Stop: 07/24/17 10:24 Last Admin: 07/24/17 09:24 Dose: 50 mls/hr eMAR Start Stop Document 07/24/17 09:24 SRE (Rec: 07/24/17 09:25 SRE [id number]) Intravenous Solution Start Date 07/24/17 Start Time 09:30 End Date 07/24/17 End time 11:30 Total Infusion Time 120 Morphine Sulfate (Morphine) 4 mg IVP STAT STA Stop: 07/24/17 07:35 Last Admin: 07/24/17 07:50 Dose: 4 mg MAR Pain Assessment Document 07/24/17 07:50 SRE (Rec: 07/24/17 07:51 SRE [id number]) Pain Reassessment Is this a pain reassessment? Yes Sleep Is patient sleeping during reassessment? No Presence of Pain Presence of Pain Yes Pain Scale Used Pain Scale Used Numeric Location Left, Right or Bilateral Right Pain Location Body Site Hip Description Description Intermittent IVP Administration Document 07/24/17 07:50 SRE (Rec: 07/24/17 07:51 SRE [id number]) Charges for Administration # of IVP Administrations 1 Re-Assess: [facility] Pain Assessment Document 07/24/17 08:50 SRE (Rec: 07/24/17 09:24 SRE [id number]) Pain Reassessment Is this a pain reassessment? Yes Sleep Is patient sleeping during reassessment? No Presence of Pain Presence of Pain Yes Pain Scale Used Pain Scale Used Numeric Location Pain Location Body Site Throat <Alber Almaguer - Last Filed: 07/24/17 09:28> - PA / PLAYER MANAGER / Resident Statement MD/ has reviewed & agrees with the documentation as recorded. MD/ has examined the patient and agrees with the treatment plan. - Scribe Statement The provider has reviewed the documentation as recorded by the Scribe <Aung Wharton - Last Filed: 07/24/17 11:27> - Scribe Statement Jenn Dow Provider Scribe Attestation: All medical record entries made by the Scribe were at my direction and personally dictated by me. I have reviewed the chart and agree that the record accurately reflects my personal performance of the history, physical exam, medical decision making, and the department course for this patient. I have also personally directed, reviewed, and agree with the discharge instructions and disposition. (Aung Wharton) Disposition/Present on Arrival - Present on Arrival Any Indicators Present on Arrival: No History of DVT/PE: No History of Uncontrolled Diabetes: No Urinary Catheter: No History of Decub. Ulcer: No History Surgical Site Infection Following: None - Disposition Have Diagnosis and Disposition been Completed?: Yes Disposition Time: 09:50 Patient Plan: Admission, ICU <Alber Almaguer - Last Filed: 07/24/17 09:28> <Aung Wharton - Last Filed: 07/24/17 11:27> - Disposition Diagnosis: Hyponatremia, Altered mental status, Subcapital fracture of hip, At risk for sepsis, Leukocytosis, Dehydration Disposition: HOSPITALIZED Patient Problems: Current Active Problems Problem Status Onset Altered mental status Acute Hyponatremia Acute Subcapital fracture of hip Acute Condition: CRITICAL
--- NOTE | 2017-07-24 08:18 | RAD ---
PROCEDURE: Bilateral hips and pelvis HISTORY: reported fall, right hip pain holding flexed COMPARISON: TECHNIQUE: Four views obtained FINDINGS: There is a displaced subcapital fracture of the right hip. The left hip is unremarkable. There are no pelvic fractures IMPRESSION: There is a displaced subcapital fracture of the right hip.
[2017-07-24 08:19] LABS: BAND 1 % (0-2); LYMPHOCYTE 5 % (22.0-35.0); MONOCYTE 4 % (1.0-6.0); NEUTROPHIL 90 % (50.0-70.0); PLATELET ESTIMATE NORMAL (NORMAL)
--- NOTE | 2017-07-24 08:21 | CT ---
PROCEDURE: CT HEAD WITHOUT CONTRAST. HISTORY: fall, AMS COMPARISON: 07/18/2017 TECHNIQUE: Axial computed tomography images were obtained through the head/brain without intravenous contrast. Radiation dose: Total exam DLP = 649 mGy-cm. This CT exam was performed using one or more of the following dose reduction techniques: Automated exposure control, adjustment of the mA and/or kV according to patient size, and/or use of iterative reconstruction technique. FINDINGS: HEMORRHAGE: No intracranial hemorrhage. BRAIN: No mass effect or edema. No atrophy or chronic microvascular ischemic changes. VENTRICLES: Unremarkable. No hydrocephalus. CALVARIUM: Unremarkable. PARANASAL SINUSES: Unremarkable as visualized. No significant inflammatory changes. MASTOID AIR CELLS: Unremarkable as visualized. No inflammatory changes. OTHER FINDINGS: None. IMPRESSION: No acute findings
[2017-07-24] MEDS ORDERED: Vancomycin 1gm in NS 250ml 1 GM/250 ML BAG IVPB STA (08:22)
[2017-07-24] MEDS ORDERED: cefTRIAXone 2 GM IN NS 2 GM/100 ML BAG IVPB STA (08:22)
[2017-07-24 08:53] LABS: URINE APPEARANCE CLEAR (CLEAR); URINE BILIRUBIN NEGATIVE (NEGATIVE); URINE BLOOD TRACE-INTACT (NEGATIVE); URINE COLOR YELLOW (YELLOW); URINE GLUCOSE (UA) 250 mg/dL (NEGATIVE); URINE LEUKOCYTE ESTERASE NEGATIVE Leu/uL (NEGATIVE); URINE PROTEIN TRACE mg/dL (<30 mg/dL); URINE UROBILINOGEN 0.2 E.U./dL (<1 E.U./dL)
[2017-07-24] MEDS: Magnesium 2 gm/50 ml NS 2 GM/50 ML BAG IVPB SCH ×2 (08:54→12:20)
[2017-07-24 09:22] LABS: URINE BACTERIA FEW (NEG); URINE WBC 0 - 2 /hpf (0-6)
[2017-07-24 09:38] LABS: ARTERIAL BLOOD GAS HCO3 20.1 mmol/L (21-28); ARTERIAL BLOOD GAS O2 SAT 99.5 % (95-98); ARTERIAL BLOOD GAS PCO2 31 mm/Hg (35-45); ARTERIAL BLOOD GAS PH 7.42 (7.35-7.45); ARTERIAL BLOOD GAS TCO2 21.1 mmol.L (22-28)
[2017-07-24 09:46] LABS: CREATININE,RANDOM URINE 12 mg/dL
[2017-07-24 10:16] LABS: OSMOLALITY,URINE 355 mosm/kg (300-1000)
--- NOTE | 2017-07-24 11:11 | CARD ---
APPROVED REPORT EKG Measurement Heart [id number] <Conclusion> Normal sinus rhythm Normal ECG No change except the rate is faster
--- NOTE | 2017-07-24 11:31 | CP.PCM.HP ---
<Ousmane Mar - Last Filed: 07/24/17 17:50> History of Present Illness - History of Present Illness History of Present Illness: 67 F with PMH of HTN, DM, Hypothyroidism, cachexia, s/p PEG tube, odynophagia presenting by EMS s/p fall. As per patient's daughter patient was found on floor by in the bedroom. Fall was unwitnessed. Patient also endorses odynophagia. Due to mild change in mental status ROS not fully obtainable. Patient admits to pain in throat and right groin and hip area. PMD: None PMH: HTN, DM, Hypothyroidism, cachexia, odynophagia Meds: Lactulose 10 mg PO daily, Vitamin D2 50,000 units PO Q7D, MVM, Potassium Allergy: NKDA PSH: PEG tube FH: unknown Social: denies tobacco/EtOH/illicit drugs use Present on Admission - Present on Admission Any Indicators Present on Admission: No Review of Systems - Review of Systems Systems not reviewed;Unavailable: Altered Mental Status, Uncooperative Past Patient History - Infectious Disease Hx of Infectious Diseases: None - Tetanus Immunizations Tetanus Immunization: Unknown - Past Social History Smoking Status: Unknown If Ever Smoked - CARDIAC Hx Cardiac Disorders: Yes Hx Hypertension: Yes - PULMONARY Hx Respiratory Disorders: No - NEUROLOGICAL Hx Neurological Disorder: No - HEENT Hx Difficulty Chewing: Yes Hx Glaucoma: Yes - RENAL Hx Chronic Kidney Disease: Yes (URINARY RETENTION 07-10-17) - ENDOCRINE/METABOLIC Hx Diabetes Mellitus Type 2: Yes Hx Hypothyroidism: Yes - HEMATOLOGICAL/ONCOLOGICAL Hx Cancer: No - INTEGUMENTARY Hx Dermatological Problems: Yes - MUSCULOSKELETAL/RHEUMATOLOGICAL Hx Musculoskeletal Disorders: Yes Hx Falls: Yes - GASTROINTESTINAL Hx Gastroesophageal Reflux: Yes - GENITOURINARY/GYNECOLOGICAL Hx Genitourinary Disorders: Yes (C/S X 2) - PSYCHIATRIC Hx Psychophysiologic Disorder: Yes Hx Anxiety: Yes Hx Bipolar Disorder: Yes Hx Depression: Yes Hx Panic Symptoms: Yes Hx Substance Use: No - SURGICAL HISTORY Hx Cardiac Catheterization: Yes Hx Coronary Stent: No - ANESTHESIA Hx Anesthesia Reactions: No Hx Malignant Hyperthermia: No Meds Allergies/Adverse Reactions: Allergies Allergy/AdvReac Type Severity Reaction Status Date / Time No Known Allergies Allergy Verified 07/24/17 11:43 Physical Exam - Head Exam Head Exam: ATRAUMATIC, NORMAL INSPECTION, NORMOCEPHALIC - ENT Exam ENT Exam: Mucous Membranes Moist - Neck Exam Neck exam: Positive for: Normal Inspection - Respiratory Exam Respiratory Exam: Clear to Auscultation Bilateral. absent: Rales, Rhonchi, Wheezes - Cardiovascular Exam Cardiovascular Exam: REGULAR RHYTHM, +S1, +S2 - GI/Abdominal Exam GI & Abdominal Exam: absent: Normal Bowel Sounds - Extremities Exam Extremities exam: Positive for: normal inspection - Neurological Exam Neurological exam: Alert - Psychiatric Exam Psychiatric exam: Agitated, Anxious - Skin Skin Exam: Normal Color, Warm Results - Vital Signs Recent Vital Signs: Last Vital Signs Temp 97.9 F 07/24/17 10:55 Pulse 63 07/24/17 10:55 Resp 20 07/24/17 10:55 BP 150/75 07/24/17 10:55 Pulse Ox 99 07/24/17 10:55 - Labs Result Diagrams: 07/24/17 07:45 07/24/17 15:05 Assessment & Plan - Assessment and Plan (Free Text) Assessment: 67 F with PMH of HTN, DM, Hypothyroidism, cachexia, s/p PEG tube, odynophagia presenting with hyponatremia, hypomagnesemia, hypochloremia, hypokalemia, and right displaced subcapital fracture of right hip s/p unwitnessed fall Plan: Altered mental status secondary to Hyponatremia -ICU admit -Nephrology consulted -IVF@75 -Check sodium q2h -Serum sodium, Urine random sodium, Urine random creatinine, Urine random urea nitrogen; results pending -Urine and Serum osmolality -Maintain electrolytes -TSH level Right subcpaital hip fracture -Orthopedics consulted -Cardiac and Renal clearance -NPO after midnight -Surgery within the next 2 days Leukocytosis -Blood and Urine cultures -MRSA screen -Check CBC for trend of WBC -Continue with cefepime -Procalcitonin low at 0.05 Hypertension -Monitor vitals -Continue with Metoprolol tartrate 12.5 PO BID Hypothyroidism -Continue Synthroid <Bandar Ibrahim - Last Filed: 07/24/17 18:45> Results - Vital Signs Recent Vital Signs: Last Vital Signs Temp 98.1 F 07/24/17 16:00 Pulse 73 07/24/17 18:34 Resp 22 07/24/17 18:20 BP 162/73 H 07/24/17 18:34 Pulse Ox 97 07/24/17 16:40 - Labs Result Diagrams: 07/24/17 07:45 07/24/17 15:05 Labs: Laboratory Results - last 24 hr 07/24/17 07/24/17 07/24/17 11:30 11:30 11:50 pO2 36 VBG pH 7.31 L VBG pCO2 50.0 VBG HCO3 25.2 VBG Total CO2 26.7 VBG O2 Sat (Calc) 72.6 H VBG Base Excess -1.7 L VBG Potassium 3.7 Glucose 111 H Lactate 1.7 FiO2 21.0 Sodium 111 L* 113.0 L* Potassium 3.1 L Chloride 80 L 81.0 L Carbon Dioxide 23 Anion Gap 11 BUN 6 L Creatinine 0.3 L Est GFR ( Amer) > 60 Est GFR (Non-Af Amer) > 60 Random Glucose 121 H Uric Acid 0.9 L Calcium 7.8 L Venous Blood Potassium 3.7 07/24/17 07/24/17 13:25 15:05 pO2 VBG pH VBG pCO2 VBG HCO3 VBG Total CO2 VBG O2 Sat (Calc) VBG Base Excess VBG Potassium Glucose Lactate FiO2 Sodium 112 L* 112 L* Potassium 3.7 4.0 Chloride 81 L 80 L Carbon Dioxide 22 23 Anion Gap 13 12 BUN 5 L 5 L Creatinine 0.3 L 0.4 L Est GFR ( Amer) > 60 > 60 Est GFR (Non-Af Amer) > 60 > 60 Random Glucose 126 H 121 H Uric Acid Calcium 7.9 L 8.0 L Venous Blood Potassium Attending/Attestation - Attestation I have personally seen and examined this patient.: Yes I have fully participated in the care of the patient.: Yes I have reviewed all pertinent clinical information: Yes Notes (Text): 07/24/17 18:39 67 year old female with past medical history of hypertension, hypothyroidism, hyponatremia and chronic odynophagia who presents today s/p fall at home. She was recently discharged yesterday after she refused to go to [facility]. Of note she was also refusing labs and workup at the time. Today she is found to have severe hyponatremia (110) for which she is being admitted to ICU. Continue with fluids as per nephrology and serial BMP q4-6 hrs. She was also found to have right subcapital hip fracture on imaging. Orthopedics evaluation is requested. Leukocytosis noted; likely stress reactive, however will need to rule out infection. Continue with iv antibiotics while awaiting cultures. Procalcitonin was not elevated. Will replete and repeat lytes. Bandar Ibrahim MD Hospitalist.
[2017-07-24 12:01] LABS: VENOUS BLOOD GAS BASE EXCESS -1.7 mmol/L (0.0-2.0); VENOUS BLOOD GAS PO2 36 mm/Hg (30-55); VENOUS BLOOD PH 7.31 (7.32-7.43)
[2017-07-24 12:26] LABS: BLOOD UREA NITROGEN 6 mg/dL (7-21); CALCIUM 7.8 mg/dL (8.4-10.5); GFR AFRICAN-AMERICAN > 60; GFR NON-AFRICAN AMERICAN > 60
[2017-07-24] MEDS ORDERED: Morphine 5 MG/ML SYRINGE IVP PRN (12:33)
[2017-07-24] MEDS ORDERED: Sodium Chloride 3% 500 ML IV SCH ×2 (12:45→14:15)
[2017-07-24] MEDS ORDERED: Sodium Chloride 0.9% 1,000 ML IV SCH (13:15)
[2017-07-24] MEDS ORDERED: Morphine 4 mg/ml ISec IVP PRN (13:25)
[2017-07-24 14:06] LABS: BLOOD UREA NITROGEN 5 mg/dL (7-21); CALCIUM 7.9 mg/dL (8.4-10.5); GFR AFRICAN-AMERICAN > 60; GFR NON-AFRICAN AMERICAN > 60
[2017-07-24 14:13] VITALS: BMI 17.3
[2017-07-24] MEDS ORDERED: Pneumococcal 23-Valent Vaccine IM ONE (14:13)
[2017-07-24] MEDS: Cefepime 1gm in NS 100ml 1 GM/100 ML BAG IVPB SCH ×3 (14:28→22:42)
--- NOTE | 2017-07-24 14:31 | CP.PCM.CON ---
<Herman William - Last Filed: 07/24/17 18:07> History of Present Illness - History of Present Illness History of Present Illness: Critical Care consult note: Dr. Villegas Reason for consult: Hyponatremia HPI: 67 year old female with past medical history pertinent for chronic hyponatremia presented s/p fall via ems. Patient was recently admitted here at [facility] and was discharged just yesterday for altered mental status and hyponatremia. Apparently patient was found on the floor at home by her . In the ED, she was found to have Na of 110, which is much lower than usual for her, as well as found to have knee fracture. ICU was consulted for management of her hyponatremia. On my interview, patient did not say much, stated that she did not understand me , and kept pointing at her throat. She did, however, ask for her food tray. History limited 2/2 neuropsych issues ( I have seen patient in the past - she refused psych admission when she was here last). Review of Systems: 12 point ROS elicited but difficult to obtain PSH: PEG tube PMH: HTN, DM, Hypothyroidism, cachexia, odynophagia Allergies: NKDA FH: Unknown Social: Denies tobacco/EtOH/illicit drugs use PMD: Previously Dr Napier, unclear if has one now Past Patient History - Infectious Disease Hx of Infectious Diseases: None - Tetanus Immunizations Tetanus Immunization: Unknown - Past Social History Smoking Status: Unknown If Ever Smoked - CARDIAC Hx Cardiac Disorders: Yes Hx Hypertension: Yes - PULMONARY Hx Respiratory Disorders: No - NEUROLOGICAL Hx Neurological Disorder: No - HEENT Hx Difficulty Chewing: Yes Hx Glaucoma: Yes - RENAL Hx Chronic Kidney Disease: Yes (URINARY RETENTION 07-10-17) - ENDOCRINE/METABOLIC Hx Diabetes Mellitus Type 2: Yes Hx Hypothyroidism: Yes - HEMATOLOGICAL/ONCOLOGICAL Hx Cancer: No - INTEGUMENTARY Hx Dermatological Problems: Yes - MUSCULOSKELETAL/RHEUMATOLOGICAL Hx Musculoskeletal Disorders: Yes Hx Falls: Yes - GASTROINTESTINAL Hx Gastroesophageal Reflux: Yes - GENITOURINARY/GYNECOLOGICAL Hx Genitourinary Disorders: Yes (C/S X 2) - PSYCHIATRIC Hx Psychophysiologic Disorder: Yes Hx Anxiety: Yes Hx Bipolar Disorder: Yes Hx Depression: Yes Hx Panic Symptoms: Yes Hx Substance Use: No - SURGICAL HISTORY Hx Cardiac Catheterization: Yes Hx Coronary Stent: No - ANESTHESIA Hx Anesthesia Reactions: No Hx Malignant Hyperthermia: No Meds Allergies/Adverse Reactions: Allergies Allergy/AdvReac Type Severity Reaction Status Date / Time No Known Allergies Allergy Verified 07/24/17 11:43 - Medications Medications: Current Medications Heparin Sodium (Porcine) (Heparin) 5,000 units SC Q12H [facility] PRN Reason: Protocol Last Admin: 07/24/17 10:03 Dose: 5,000 units Cefepime HCl (Maxipime 1gm) 1 gm in 100 mls @ 100 mls/hr IVPB Q8 [facility]EN PRN Reason: Protocol Potassium Chloride (Potassium Chloride 20 Meq/100 Ml) 20 meq in 100 mls @ 50 mls/hr IVPB Q2H [facility] Stop: 07/24/17 15:29 Last Admin: 07/24/17 12:20 Dose: 50 mls/hr Sodium Chloride (Sodium Chloride 0.9%) 1,000 mls @ 100 mls/hr IV .Q10H [facility] Last Admin: 07/24/17 13:37 Dose: 100 mls/hr Levothyroxine Sodium (Synthroid) 25 mcg PO 0600 [facility] Metoprolol Tartrate (Lopressor) 12.5 mg PO BID [facility] Morphine Sulfate (Morphine) 1 mg IVP Q6H PRN PRN Reason: Pain, severe (8-10) Physical Exam - Constitutional Appears: Well - Head Exam Head Exam: ATRAUMATIC, NORMAL INSPECTION, NORMOCEPHALIC - Eye Exam Eye Exam: EOMI, Normal appearance, PERRL Pupil Exam: NORMAL ACCOMODATION, PERRL - ENT Exam ENT Exam: Mucous Membranes Moist, Normal Exam - Neck Exam Neck exam: Positive for: Normal Inspection - Respiratory Exam Respiratory Exam: Clear to Auscultation Bilateral, NORMAL BREATHING PATTERN - Cardiovascular Exam Cardiovascular Exam: REGULAR RHYTHM - GI/Abdominal Exam GI & Abdominal Exam: Normal Bowel Sounds, Soft. absent: Tenderness - Extremities Exam Extremities exam: Positive for: normal inspection - Back Exam Back exam: NORMAL INSPECTION - Neurological Exam Neurological exam: Alert, CN II-XII Intact, Normal Gait, Oriented x3, Reflexes Normal - Psychiatric Exam Additional comments: Strange affect, patient seems attention seeking - Skin Skin Exam: Dry, Intact, Normal Color, Warm Results - Vital Signs Recent Vital Signs: Last Vital Signs Temp 97.9 F 07/24/17 10:55 Pulse 75 07/24/17 12:00 Resp 46 H 07/24/17 12:00 BP 130/67 07/24/17 12:00 Pulse Ox 99 07/24/17 12:00 - Labs Result Diagrams: 07/24/17 07:45 07/24/17 15:05 Labs: Laboratory Results - last 24 hr 07/24/17 07/24/17 07/24/17 11:30 11:30 11:50 pO2 36 VBG pH 7.31 L VBG pCO2 50.0 VBG HCO3 25.2 VBG Total CO2 26.7 VBG O2 Sat (Calc) 72.6 H VBG Base Excess -1.7 L VBG Potassium 3.7 Glucose 111 H Lactate 1.7 FiO2 21.0 Sodium 111 L* 113.0 L* Potassium 3.1 L Chloride 80 L 81.0 L Carbon Dioxide 23 Anion Gap 11 BUN 6 L Creatinine 0.3 L Est GFR ( Amer) > 60 Est GFR (Non-Af Amer) > 60 Random Glucose 121 H Uric Acid 0.9 L Calcium 7.8 L Venous Blood Potassium 3.7 Assessment & Plan - Assessment and Plan (Free Text) Assessment: 67 year old female with pertinent medical history of chronic hyponatremia presents with AMS and Na of 110. Patient seems to have a free water deficit but given U Osm of 355 and U Na of 114, seems to also have a component of SIADH. The cause of patient's AMS at this point is unclear - there is some degree of psychiatric illness here, but patient also has a critically low sodium level. Patient's other medical problems are HTN, DM, Hypothyroidism, cachexia, and odynophagia Plan Neuro: - AMS likely 2/2 psychiatric VS hyponatremia: Nephro consult; NaCl @ 75 cc/hr - Maintain normothermia Cardiovascular: - Hx HTN - Continue home metoprolol - Maintain MAP > 65 Pulm: - Maintain O2 > 90% GI: - Transaminitis - GI Consult: Dr. Bates Renal: - Hyponatremia - As above - Maintain euvolemia - Monitor and replete electrolytes PRN Heme: - Monitor H/H Endo: - Hypothyroidism - Continue home synthroid - Maintain Euglycemia ID: - Leukocytosis - Cefepime for now <Jhon Villegas - Last Filed: 07/25/17 13:26> Meds - Medications Medications: Current Medications Heparin Sodium (Porcine) (Heparin) 5,000 units SC Q12H [facility] PRN Reason: Protocol Last Admin: 07/25/17 11:17 Dose: 5,000 units Cefepime HCl (Maxipime 1gm) 1 gm in 100 mls @ 100 mls/hr IVPB Q8 [facility] PRN Reason: Protocol Last Admin: 07/25/17 06:35 Dose: 100 mls/hr Sodium Chloride (Sodium Chloride 0.9%) 1,000 mls @ 50 mls/hr IV .Q20H [facility] Dextrose (Dextrose 5% In Water 1000 Ml) 1,000 mls @ 500 mls/hr IV .Q2H [facility] Stop: 07/25/17 14:14 Last Admin: 07/25/17 12:30 Dose: 500 mls/hr Levothyroxine Sodium (Synthroid) 25 mcg PO 06 [facility] Magnesium Oxide (Mag-Ox) 400 mg PEG BID [facility] Stop: 07/26/17 23:59 Last Admin: 07/25/17 11:15 Dose: 400 mg Metoprolol Tartrate (Lopressor) 25 mg PEG BID [facility] Last Admin: 07/25/17 11:15 Dose: 25 mg Oxycodone/Acetaminophen (Percocet 5/325 Mg Tab) 1 tab PO Q6H PRN PRN Reason: Pain, severe (8-10) Stop: 07/28/17 12:35 Potassium Phos/Sodium Phos (Neutra-Phos) 1 pkt PEG TID [facility] Stop: 07/26/17 23:00 Last Admin: 07/25/17 11:15 Dose: 1 pkt Vitamin A (Vitamin A & D Oint Ud Foilpak) 1 ea TOP BID PRN PRN Reason: Excoriation Last Admin: 07/24/17 18:34 Dose: 1 ea Results - Vital Signs Recent Vital Signs: Last Vital Signs Temp 98.1 F 07/24/17 16:00 Pulse 75 07/25/17 12:32 Resp 16 07/25/17 12:32 BP 116/58 L 07/25/17 12:00 Pulse Ox 97 07/24/17 16:40 - Labs Result Diagrams: 07/25/17 07:00 07/25/17 11:00 Labs: Laboratory Results - last 24 hr 07/24/17 07/24/17 07/24/17 13:25 15:05 19:22 WBC RBC Hgb Hct MCV MCH MCHC RDW Plt Count MPV Gran % Lymph % (Auto) [place] % (Auto) Eos % (Auto) Baso % (Auto) Gran # Lymph # (Auto) [place] # (Auto) Eos # (Auto) Baso # (Auto) Sodium 112 L* 112 L* Potassium 3.7 4.0 Chloride 81 L 80 L Carbon Dioxide 22 23 Anion Gap 13 12 BUN 5 L 5 L Creatinine 0.3 L 0.4 L Est GFR ( Amer) > 60 > 60 Est GFR (Non-Af Amer) > 60 > 60 Random Glucose 126 H 121 H Hemoglobin A1c Calcium 7.9 L 8.0 L Phosphorus Magnesium Total Bilirubin AST ALT Alkaline Phosphatase Total Protein Albumin Globulin Albumin/Globulin Ratio Triglycerides Cholesterol LDL Cholesterol Direct HDL Cholesterol Free T4 TSH 3rd Generation Urine Osmolality 344 Ur Random Sodium 120 07/24/17 07/25/17 07/25/17 21:40 00:30 02:30 WBC RBC Hgb Hct MCV MCH MCHC RDW Plt Count MPV Gran % Lymph % (Auto) [place] % (Auto) Eos % (Auto) Baso % (Auto) Gran # Lymph # (Auto) [place] # (Auto) Eos # (Auto) Baso # (Auto) Sodium 115 L* 114 L* 116 L* Potassium 3.9 4.1 3.6 Chloride 83 L 85 L 86 L Carbon Dioxide 21 20 L 19 L Anion Gap 15 13 14 BUN 6 L 6 L 6 L Creatinine 0.4 L 0.4 L 0.4 L Est GFR ( Amer) > 60 > 60 > 60 Est GFR (Non-Af Amer) > 60 > 60 > 60 Random Glucose 106 97 91 Hemoglobin A1c Calcium 8.1 L 8.0 L 8.2 L Phosphorus Magnesium Total Bilirubin AST ALT Alkaline Phosphatase Total Protein Albumin Globulin Albumin/Globulin Ratio Triglycerides Cholesterol LDL Cholesterol Direct HDL Cholesterol Free T4 TSH 3rd Generation Urine Osmolality Ur Random Sodium 07/25/17 07/25/17 07/25/17 06:15 07:00 07:00 WBC 12.2 H D RBC 3.87 Hgb 10.1 L Hct 29.9 L MCV 77.3 L MCH 26.1 MCHC 33.8 RDW 14.1 Plt Count 269 MPV 8.4 Gran % 91.8 H Lymph % (Auto) 3.3 L [place] % (Auto) 4.7 Eos % (Auto) 0.1 L Baso % (Auto) 0.1 Gran # 11.24 H Lymph # (Auto) 0.4 L [place] # (Auto) 0.6 Eos # (Auto) 0.0 Baso # (Auto) 0.01 Sodium 117 L* Potassium 3.4 L Chloride 86 L Carbon Dioxide 20 L Anion Gap 14 BUN 6 L Creatinine 0.4 L Est GFR ( Amer) > 60 Est GFR (Non-Af Amer) > 60 Random Glucose 86 Hemoglobin A1c Calcium 8.1 L Phosphorus 2.7 Magnesium 1.8 Total Bilirubin 0.5 AST 48 H ALT 20 Alkaline Phosphatase 95 Total Protein 6.9 Albumin 3.5 Globulin 3.4 Albumin/Globulin Ratio 1.0 L Triglycerides 63 Cholesterol 207 H LDL Cholesterol Direct 98 HDL Cholesterol 63 H Free T4 TSH 3rd Generation Urine Osmolality 284 L Ur Random Sodium 68 07/25/17 07/25/17 07/25/17 07:00 07:00 07:00 WBC RBC Hgb Hct MCV MCH MCHC RDW Plt Count MPV Gran % Lymph % (Auto) [place] % (Auto) Eos % (Auto) Baso % (Auto) Gran # Lymph # (Auto) [place] # (Auto) Eos # (Auto) Baso # (Auto) Sodium Potassium Chloride Carbon Dioxide Anion Gap BUN Creatinine Est GFR ( Amer) Est GFR (Non-Af Amer) Random Glucose Hemoglobin A1c 5.6 Calcium Phosphorus Magnesium Total Bilirubin AST ALT Alkaline Phosphatase Total Protein Albumin Globulin Albumin/Globulin Ratio Triglycerides Cholesterol LDL Cholesterol Direct HDL Cholesterol Free T4 1.38 TSH 3rd Generation 5.18 H Urine Osmolality Ur Random Sodium 07/25/17 11:00 WBC RBC Hgb Hct MCV MCH MCHC RDW Plt Count MPV Gran % Lymph % (Auto) [place] % (Auto) Eos % (Auto) Baso % (Auto) Gran # Lymph # (Auto) [place] # (Auto) Eos # (Auto) Baso # (Auto) Sodium 124 L Potassium 3.0 L Chloride 88 L Carbon Dioxide 24 Anion Gap 14 BUN 6 L Creatinine 0.5 L Est GFR ( Amer) > 60 Est GFR (Non-Af Amer) > 60 Random Glucose 96 Hemoglobin A1c Calcium 8.5 Phosphorus Magnesium Total Bilirubin AST ALT Alkaline Phosphatase Total Protein Albumin Globulin Albumin/Globulin Ratio Triglycerides Cholesterol LDL Cholesterol Direct HDL Cholesterol Free T4 TSH 3rd Generation Urine Osmolality Ur Random Sodium Attending/Attestation - Attestation I have personally seen and examined this patient.: Yes I have fully participated in the care of the patient.: Yes I have reviewed all pertinent clinical information: Yes Notes (Text): 07/25/17 13:[address] villegas note
[2017-07-24] MEDS ORDERED: Morphine 2 mg/2 mL syringe IVP PRN (15:41)
[2017-07-24] MEDS: Sodium Chloride 0.9% 1,000 ML IV SCH (15:46)
[2017-07-24 15:53] LABS: BLOOD UREA NITROGEN 5 mg/dL (7-21); GFR AFRICAN-AMERICAN > 60; GFR NON-AFRICAN AMERICAN > 60
[2017-07-24] MEDS: Vitamins A & D Oint UD Foilpak TOP PRN (18:34)
[2017-07-24 19:51] LABS: OSMOLALITY,URINE 344 mosm/kg (300-1000)
--- NOTE | 2017-07-24 20:17 | CON ---
DATE: 07/24/2017 HISTORY OF PRESENT ILLNESS: This is a 67-year-old lady with history of hypothyroidism, diabetes, hypertension, cachexia, chronic throat pain, and odynophagia (that is the reason for the patient received PEG tube during the previous admission), who presented this time after she fell and broke her hip. The patient is confused, disoriented, not a great historian, and unable to provide history of present illness. Family is not at bedside and cannot add to it also. Of note, the patient was discharged yesterday and was much more conversant and alert and oriented. Now, however, she just respond with "I do not understand"repeatedly. She continued to complain of throat pain (multiple laryngoscopies and pharyngoscopies performed by ENT in the past were negative) and groin pain which most likely attributed to right hip fracture. No nausea, no vomiting, no diarrhea. The patient is known to have constipation. Any movements of her lower extremities result in pain. PAST MEDICAL HISTORY: Hypertension, diabetes, hypothyroidism, odynophagia, cachexia. PAST SURGICAL HISTORY: PEG tube. FAMILY HISTORY: Noncontributory. SOCIAL HISTORY: No alcohol or illicit drug abuse. No tobacco smoking. ALLERGIES: NKDA. MEDICATIONS AT HOME: Protonix, milk of magnesia, Synthroid, vitamin D. REVIEW OF SYSTEMS: Review of 12-organ system other than mentioned in the history of present illness is negative. PHYSICAL EXAMINATION: VITAL SIGNS: Blood pressure 166/91, respiratory rate 18, oxygen saturation 99% on room air, temperature 97.5. HEENT: Head and neck atraumatic. LUNGS: Clear to auscultation bilaterally. HEART: Regular rate and rhythm. S1, S2 normal. ABDOMEN: Soft, nontender, nondistended. MUSCULOSKELETAL: There is pain in right hip area. No C/C/E. NEURO: The patient is seen moving all extremities spontaneously. SKIN: Moist. PSYCH: The patient is confused and somewhat somnolent. LABORATORY DATA: WBC 19.2, hemoglobin 11.3, and platelet count 411. Sodium 110, potassium 3.4, chloride 73, carbon dioxide 24. BUN 7, creatinine 0.4. Glucose 167. Phosphorus 1.2. AST 44, ALT 33, total bilirubin 0.6. ASSESSMENT: This is a 67-year-old lady who presented with fall most likely due to severe hyponatremia. It is unclear whether this hyponatremia is acute or not; however, on 07/18, (today is 07/24) her sodium was 126. Her fall complicated by right subcapsular hip fracture and Dr. Yu was called for consult. Meanwhile, her chest x-ray and CAT scan of the head did not reveal any acute abnormalities that would have been accounted for her electrolyte abnormalities. septic workup was ordered. Procalcitonin was ordered. Empiric antibiotics started, normal saline was started. Urine electrolytes, urine osmolality as well as plasma osmolality were also ordered and will be sent. Troponin was sent. Echocardiogram performed recently (in May) did not reveal any significant intracardiac pathology. The patient is not known to have liver failure or kidney failure that would have been accounted for severe hyponatremia. Provided that the patient also has hypochloremia, most likely differential diagnosis include syndrome of inappropriate antidiuretic hormone versus hypovolemic hyponatremia. Urine sodium, urine osmolality as well as plasma osmolality will help with this differential; however, the rest of the workup will help to pinpoint the diagnosis. At any rate, we will avoid correcting sodium at a higher than 6 mEq/L for first 24 hours rate. Supplementation of potassium may also help with some sodium correction as well. The patient will be going to ICU in case she needed hypertonic saline. I would avoid bolus of hypertonic at present time as the patient does not have seizure or life-threatening neurological abnormalities. I would continue to maintain euvolemia, glycemia, normothermia and 02sat more than 90%. We will continue with DVT, GI prophylaxis. ccm time 40 min Jhon Villegas MD ALEXANDRO
--- NOTE | 2017-07-24 20:44 | CON ---
DATE: 07/24/2017 ORTHOPEDIC CONSULT HISTORY OF PRESENT ILLNESS: A 67-year-old female. The patient is in the emergency room in [facility], came in this morning with pain in the hip and found to have electrolyte imbalance. The x-rays of the right hip show displaced impacted subcapital fracture of the right hip. The patient is unable to walk, history is not reliable. She is confused. The family said she fell just before admission. The x-rays showed the displaced subcapital fracture of the right hip and once she is medically cleared, we brought her to do a bipolar hip prosthesis to allow her to get up of bed and be functional and ambulate and then probably go to a subacute rehab facility. I talked his daughter and they understand the need of surgery which the benefits outweigh the risks because once we do the surgery, we could mobilize her and be in much less pain. The risk of any surgery is infection and for this particular case, there is always a chance of dislocation. I will follow her closely. FINAL DIAGNOSIS: Displaced subcapital fracture, right hip. PLAN: To do a right hip bipolar prosthesis when she is medically cleared. Probably, it will come out the late morning or early afternoon. Harsha Yu DO
[2017-07-24 22:05] LABS: BLOOD UREA NITROGEN 6 mg/dL (7-21); CALCIUM 8.1 mg/dL (8.4-10.5); GFR AFRICAN-AMERICAN > 60; GFR NON-AFRICAN AMERICAN > 60
--- NOTE | 2017-07-25 00:02 | CON ---
DATE: 07/24/2017 CARDIOLOGY CONSULTATION REASON FOR CONSULTATION: Preop evaluation, risk stratification for right hip fracture status post fall, going to the OR for internal fixation. BRIEF CLINICAL HISTORY: This is a 67-year-old female with past medical history of diabetes, hypothyroidism, chronic throat pain and odynophagia and difficulty in swallowing and had PEG placement leading to cachexia, who was recently discharged from the hospital yesterday and fell down at home and sustained fracture of the right hip requiring OR internal fixation. The patient denies any chest pain or shortness of breath. Denies any palpitation. PAST MEDICAL HISTORY: Significant for difficulty in swallowing, chronic throat pain status post PEG placement, diabetes, hypertension, hyperlipidemia, odynophagia, hypothyroidism, hyponatremia, B12 deficiency. CURRENT MEDICATIONS: The patient is consuming thyroid, Protonix. PAST SURGICAL HISTORY: EGD 05/2017, laryngoscopy 05/2017, PEG placement 05/2017. FAMILY HISTORY: Noncontributory. SOCIAL HISTORY: Denies smoking. Denies any history of alcohol abuse. PHYSICAL EXAMINATION: VITAL SIGNS: Height of the patient is 5 foot 3 inches, weight of the patient is 98 pounds, body mass index 17.5 Kg/m2. Rest of the vitals: Temperature afebrile, heart rate 70, blood pressure 130/67. HEENT: PERRLA. Extraocular muscles intact. NECK: Supple. No carotid bruit or thyromegaly. CHEST: Clear to auscultation. HEART: S1 and S2 regular. ABDOMEN: Soft. EXTREMITIES: Clubbing and cyanosis negative. LABORATORY DATA: Blood workup: WBC 19.8, hemoglobin 11, hematocrit 32, platelet count 411. Chemistry shows sodium 111, potassium 3.1, chloride 80, carbon dioxide 23, anion gap of 11. BUN 6, creatinine 0.3. Status post fall, status post fractured hip, anemia, hyponatremia, multiple electrolyte abnormality, protein calorie malnutrition. In the morning, magnesium was 1.2. In the past, the patient had the protein calorie malnutrition, now protein is okay. Status post fall, hip fracture requiring OR internal fixation. EKG showed no signs of acute ST-T changes. IMPRESSION: A 67-year-old female with past medical history of odynophagia, difficult in swallowing, chronic throat pain status post PEG placement, hypothyroidism, multiple electrolytes abnormality and vitamin deficiency who is recently discharged from [facility] to home and fell down, sustained fracture of the hip, now requiring OR internal fixation. The patient has [id number] risk because of underlying comorbidity. No acute absolute contraindication from the Cardiology point of view. No evidence of acute ischemia. No evidence of acute congestive heart failure or congestive heart failure or angina, but because of underlying comorbidity and [id number] risk, we will continue preoperative beta-aki, supplement electrolyte and start 3% normal saline and monitor heart rate. We will get echo to assess LV function, if this is not done within the last 6 months. We will follow with you. ADDENDUM Old chart reviewed. The patient had echocardiogram on 05/28/2017, that shows normal LV size, normal LV function, aortic valve with mild calcific aortic sclerosis, mild aortic regurgitation, mild mitral regurgitation, trace tricuspid regurgitation, RV systolic pressure 24, calculated ejection fracture of 60%. RECOMMENDATION: We will start 3% saline, supplement aggressively electrolytes and lipid profile, TSH, hemoglobin A1c. Further recommendations per hospital course and if remained stable we will continue low dose beta-aki arrhythmia. Thank you, , for providing us the opportunity in taking care of the Ignacio Youngblood. Rigoberto Garg MD
[2017-07-25 01:16] LABS: BLOOD UREA NITROGEN 6 mg/dL (7-21); GFR AFRICAN-AMERICAN > 60; GFR NON-AFRICAN AMERICAN > 60
[2017-07-25] MEDS: Sodium Chloride 0.9% 1,000 ML IV SCH (02:15)
[2017-07-25 03:32] LABS: BLOOD UREA NITROGEN 6 mg/dL (7-21); CALCIUM 8.2 mg/dL (8.4-10.5); GFR AFRICAN-AMERICAN > 60; GFR NON-AFRICAN AMERICAN > 60
--- NOTE | 2017-07-25 04:00 | CON ---
DATE: NEPHROLOGY CONSULTATION HISTORY OF PRESENT ILLNESS: A 67-year-old female with past medical history of hypertension, diabetes, hypothyroidism, cachexia status post PEG tube placement, persistent odynophagia, presented by EMS status post fall. Nephrology being consulted for severe hyponatremia. History taken mainly from patient records and from interviewing medical staff as the patient is unable to give much history. Patient with multiple admissions to [facility] over the last couple of months for difficulty swallowing and reported odynophagia; also noted to have mild hyponatremia. Patient was just discharged yesterday, however, did not have any blood tests since previous 5 days as she was refusing labs. Patient presented today after being found by in bedroom on the floor; fall was unwitnessed; however, imaging showing displaced subcapital fracture of right hip. Further history available as patient is agonizing in pain. Patient was given normal saline IV fluid bolus in ER initially of 1 liter and then placed on normal saline at 150 mL/hour; patient also had potassium replenished. PAST MEDICAL HISTORY: As above. MEDICATIONS: Per chart review, lactulose 10 mg daily, vitamin D 50,000 units weekly, multivitamin, and potassium. FAMILY HISTORY: Unable to obtain. SOCIAL HISTORY: Per record, denied tobacco use. REVIEW OF SYSTEMS: Unable to obtain as patient is in pain and not giving much verbal response other than indicating her pain. PHYSICAL EXAMINATION: VITAL SIGNS: This afternoon blood pressure 127/63, heart rate 78, respirations 20, temperature 98.1, O2 sat 98% on room air. GENERAL: Patient in distress, moaning in pain. HEENT: Moist mucous membranes. Nonicteric. No cervical lymphadenopathy. RESPIRATORY: Lungs clear to auscultation bilaterally. No rales, no rhonchi, no wheezes. CARDIOVASCULAR: Heart sounds S1, S2 normal. No murmurs or gallops or rubs. GI: Abdomen soft, nontender, nondistended. : No bladder distention. EXTREMITIES: No leg edema. NEUROLOGICAL: Patient moving all four extremities. SKIN: Distal hands warm. Feet cold. No cyanosis. PSYCHIATRIC: Not agitated. LABORATORY DATA: On presentation, CBC: WBC 19.2, hemoglobin 11.3, hematocrit 32, platelets 411. Chemistry panel: Sodium 110, potassium 3.4, chloride 73, bicarb 24, BUN 7, creatinine 0.4, glucose 167, calcium 9, phosphorous 2.9, magnesium 1.2. AST 44, ALT 33, albumin 4.6. Uric acid level 0.9. Urine studies: (Unclear exactly when obtained) urine osmolality 355, urine sodium 114. Chest x-ray: Directly observed, lungs clear. ASSESSMENT AND PLAN: 1. Hyponatremia. Timing of drop in serum sodium is unclear as the patient did not have labs since previous 5 days. Unclear if there is any significant change in mental status. Patient is able to give appropriate verbal responses although this is severely limited by her being in pain. Otherwise, we will treat this as relatively chronic hyponatremia (i.e., persisting more than 48 to 72 hours). Etiology is not completely clear; may have an element of volume depletion, but this should have already been resolved as the patient has gotten adequate IV fluids and has adequate blood pressure and no history of any GI losses. 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 Very mild improvement in hyponatremia is likely just due to patient being supplemented potassium; otherwise, we have not made any progress in correcting serum sodium. Patient currently on normal saline at 75 mL/hour. Should continue to repeat BMP every 2 hours; if there remains no improvement in serum sodium, we should start hypertonic saline at 20 mL/hour with goal of correcting serum sodium of no more than 8 mEq over the next 24 hours. Need repeat urine lytes (urine osmolality and sodium). Avoid giving medications in hypotonic solution. Continue to address pain adequately as this serves as an impetus for increased antidiuretic hormone production. 2. Hypokalemia, also with significant hypomagnesemia. Patient supplemented via IV route; should repeat magnesium level and continue to supplement if still low. 3. Hypertension. Blood pressure currently controlled. Started on metoprolol 12.5 mg b.i.d. by Cardiology; continue. Critical care time spent assessing patient, discussion with Primary and Critical Care teams, and treatment is greater than 45 minutes. Thank you for this referral. We will be following up closely. Linden Zuniga MD
[2017-07-25] MEDS ORDERED: Levothyroxine 25 MCG TAB PO SCH (06:00)
[2017-07-25] MEDS: Cefepime 1gm in NS 100ml 1 GM/100 ML BAG IVPB SCH ×3 (06:35→21:43)
[2017-07-25 07:24] LABS: OSMOLALITY,URINE 284 mosm/kg (300-1000)
[2017-07-25 07:24] LABS: BASO # 0.01 K/mm3 (0.0-2.0); BASO % 0.1 % (0.0-3.0); EOS % 0.1 % (1.5-5.0); GRAN # 11.24 (1.4-6.5); GRAN % 91.8 % (50.0-68.0); HEMOGLOBIN 10.1 g/dL (12.0-16.0); LYMPH # 0.4 (1.2-3.4); LYMPH % 3.3 % (22.0-35.0); MEAN CELL VOLUME 77.3 fl (80.0-105.0); MEAN CORPUSCULAR HEMOGLOBIN 26.1 pg (25.0-35.0); MEAN CORPUSCULAR HGB CONC 33.8 g/dl (31.0-37.0); MEAN PLATELET VOLUME 8.4 fl (7.0-11.0); MONO # 0.6 (0.1-0.6); MONO % 4.7 % (1.0-6.0); RBC 3.87 10^6/uL (3.5-6.1); RED CELL DISTRIBUTION WIDTH 14.1 % (11.5-14.5); WHITE BLOOD COUNT 12.2 10^3/ul (4.5-11.0)
--- NOTE | 2017-07-25 07:25 | CP.PCM.PN ---
<Ousmane Mar - Last Filed: 07/25/17 14:40> Subjective - Date & Time of Evaluation Date of Evaluation: 07/25/17 Time of Evaluation: 07:22 - Subjective Subjective: Patient seen and examined at bedside sedated due to ativan given overnight. As per overnight nurse patient was restless and trying to get out of bed. Patient this mornign states she doesn't feel good due to her right hip pain. Asks why is she on restraints. Is able to communicate in Czech. ROS limited due to patient's current mental status. Objective - Vital Signs/Intake and Output Vital Signs (last 24 hours): Temp Pulse Resp BP Pulse Ox 98.1 F 73 22 162/73 H 97 07/24/17 16:00 07/24/17 18:34 07/24/17 18:20 07/24/17 18:34 07/24/17 16:40 - Medications Medications: Current Medications Heparin Sodium (Porcine) (Heparin) 5,000 units SC Q12H LAUREN PRN Reason: Protocol Last Admin: 07/24/17 21:33 Dose: 5,000 units Cefepime HCl (Maxipime 1gm) 1 gm in 100 mls @ 100 mls/hr IVPB Q8 LAUREN PRN Reason: Protocol Last Admin: 07/25/17 06:35 Dose: 100 mls/hr Sodium Chloride (Sodium Chloride 0.9%) 1,000 mls @ 75 mls/hr IV .[id number] [facility] Last Admin: 07/25/17 02:15 Dose: 75 mls/hr Levothyroxine Sodium (Synthroid) 25 mcg PO 0600 [facility] Last Admin: 07/25/17 06:39 Dose: Not Given Metoprolol Tartrate (Lopressor) 12.5 mg PO BID [facility] Last Admin: 07/24/17 18:34 Dose: 12.5 mg Morphine Sulfate (Morphine) 1 mg IVP Q6H PRN PRN Reason: Pain, severe (8-10) Vitamin A (Vitamin A & D Oint Ud Foilpak) 1 ea TOP BID PRN PRN Reason: Excoriation Last Admin: 07/24/17 18:34 Dose: 1 ea - Labs Labs: 07/25/17 02:30 - Head Exam Head Exam: ATRAUMATIC, NORMAL INSPECTION, NORMOCEPHALIC - Eye Exam Eye Exam: Normal appearance - ENT Exam ENT Exam: Mucous Membranes Dry - Neck Exam Neck Exam: Normal Inspection - Respiratory Exam Respiratory Exam: Clear to Ausculation Bilateral. absent: Rhonchi, Wheezes - Cardiovascular Exam Cardiovascular Exam: REGULAR RHYTHM, +S1, +S2 - GI/Abdominal Exam GI & Abdominal Exam: Soft, Diminished Bowel Sounds - Neurological Exam Neurological Exam: Altered, Awake. 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 -Maintain electrolytes -TSH level elevated, thyroid studies ordered will monitor with correction of sodium Right subcapital hip fracture -Orthopedics consulted -Cardiac and Renal clearance -NPO after midnight -Surgery scheduled for tomorrow Leukocytosis -Blood cultures no growth after 24 hours and Urine cultures show no growth -MRSA screen -WBC trending down -Procalcitonin low at <0.05 Hypertension -Monitor vitals -Metoprolol tartrate 25 PO BID started Hypothyroidism -Continue Synthroid NIDDM -Metformin re-started <Bandar Ibrahim - Last Filed: 07/26/17 08:20> Objective - Vital Signs/Intake and Output Vital Signs (last 24 hours): Temp Pulse Resp BP Pulse Ox 98.1 F 65 26 H 129/71 99 07/24/17 16:00 07/26/17 06:00 07/26/17 06:00 07/26/17 06:00 07/26/17 06:00 Intake and Output: 07/26/17 07/26/17 06:59 18:59 Intake Total 200 Balance 200 - Medications Medications: Current Medications Heparin Sodium (Porcine) (Heparin) 5,000 units SC Q12H LAUREN PRN Reason: Protocol Last Admin: 07/25/17 22:00 Dose: 5,000 units Cefepime HCl (Maxipime 1gm) 1 gm in 100 mls @ 100 mls/hr IVPB Q8 LAUREN PRN Reason: Protocol Last Admin: 07/26/17 06:23 Dose: 100 mls/hr Insulin Human Regular (Humulin R Low) 0 units SC ACHS LAUREN PRN Reason: Protocol Last Admin: 07/25/17 22:00 Dose: Not Given Insulin Human Regular (Humulin R Low) 0 units SC ACHS LAUREN PRN Reason: Protocol Last Admin: 07/25/17 22:00 Dose: Not Given Levothyroxine Sodium (Synthroid) 25 mcg PO 0600 [facility] Last Admin: 07/26/17 06:24 Dose: 25 mcg Magnesium Oxide (Mag-Ox) 400 mg PEG BID [facility] Stop: 07/26/17 23:59 Last Admin: 07/25/17 17:35 Dose: 400 mg Metoprolol Tartrate (Lopressor) 25 mg PEG BID [facility] Last Admin: 07/25/17 17:41 Dose: Not Given Oxycodone/Acetaminophen (Percocet 5/325 Mg Tab) 1 tab PO Q6H PRN PRN Reason: Pain, severe (8-10) Stop: 07/28/17 12:35 Last Admin: 07/26/17 06:24 Dose: 1 tab Potassium Phos/Sodium Phos (Neutra-Phos) 1 pkt PEG TID [facility] Stop: 07/26/17 23:00 Last Admin: 07/25/17 17:34 Dose: 1 pkt Vitamin A (Vitamin A & D Oint Ud Foilpak) 1 ea TOP BID PRN PRN Reason: Excoriation Last Admin: 07/24/17 18:34 Dose: 1 ea - Labs Labs: 07/25/17 07:00 Attending/Attestation - Attestation I have personally seen and examined this patient.: Yes I have fully participated in the care of the patient.: Yes I have reviewed all pertinent clinical information, including history, physical exam and plan: Yes Notes (Text): 07/25/17 67 year old female with past medical history of hypertension, hypothyroidism, hyponatremia and chronic odynophagia who presented s/p fall at home. She was found to have severe hyponatremia (110) and started on fluids as per nephrology with serial BMP q4-6 hrs. Her sodium level is slowly improving. She was also found to have right subcapital hip fracture on imaging. Orthopedics evaluation is appreciated. Plan is for OR in 1-2 days if hyponatremia continues to improve. Leukocytosis noted; likely stress reactive, however will need to rule out infection. WBC is improved today. Continue with iv antibiotics while awaiting cultures. Procalcitonin was not elevated. Bandar Ibrahim MD Hospitalist.
[2017-07-25] MEDS ORDERED: Potassium Chloride 20 mEq ER Tab PO STA (07:48)
[2017-07-25 07:58] LABS: LDL CHOLESTEROL 98 mg/dL (0-129)
[2017-07-25 07:59] LABS: ALBUMIN 3.5 g/dL (3.0-4.8); ALT/SGPT 20 U/L (7-56); AST/SGOT 48 U/L (14-36); BLOOD UREA NITROGEN 6 mg/dL (7-21); CALCIUM 8.1 mg/dL (8.4-10.5); GFR AFRICAN-AMERICAN > 60; GFR NON-AFRICAN AMERICAN > 60; HDL CHOLESTEROL 63 mg/dL (29-60)
[2017-07-25] MEDS ORDERED: Sodium Chloride 3% 500 ML IV SCH (08:45)
[2017-07-25] MEDS: Magnesium Oxide 400 mg Tab UD PEG SCH ×2 (11:15→17:35)
[2017-07-25] MEDS: Potassium & Sodium Phosphate PEG SCH ×3 (11:15→17:34)
[2017-07-25] MEDS ORDERED: Potassium Chloride 40 mEq/30 ml LIQ UD PO STA (11:23)
[2017-07-25 11:35] LABS: BLOOD UREA NITROGEN 6 mg/dL (7-21); CALCIUM 8.5 mg/dL (8.4-10.5); GFR AFRICAN-AMERICAN > 60; GFR NON-AFRICAN AMERICAN > 60
[2017-07-25] MEDS: Oxycodone/Acetaminophen 5/325 mg Tab PO PRN ×2 (13:25→19:52)
[2017-07-25 13:50] LABS: OSMOLALITY,URINE 377 mosm/kg (300-1000)
--- NOTE | 2017-07-25 16:02 | PN ---
DATE: 07/25/2017 REASON FOR CONSULTATION AND FOLLOWUP: Preop evaluation, risk stratification for right hip fracture status post fall, multiple electrolyte abnormality. SUBJECTIVE: Patient denies any chest pain, mild confusion, but now the mentation is cleared, wanted to get out of bed, denies any chest pain, complaining of throat pain, status post PEG placement in the past for swallowing difficulty. OBJECTIVE: GENERAL: Not in apparent distress, lying flat, getting IV normal saline. VITAL SIGNS: As follows: Temperature afebrile, heart rate 73, blood pressure 162/73. HEENT: PERRLA. Extraocular muscles intact. NECK: Supple. No carotid bruit or thyromegaly. CHEST: Clear to auscultation. HEART: S1 and S2 regular. ABDOMEN: Soft. PEG in place. EXTREMITIES: Clubbing and cyanosis, negative. LABORATORY DATA: Blood work as follows: WBC 12.7 , hemoglobin 9.7, hematocrit 29.9, platelet count 269. Chemistry shows sodium 117, potassium 3.4, chloride 86,Co2 20, anion gap of 14, BUN 6, creatinine 0.4. TSH 5.18. IMPRESSION: Status post fall, hip fracture, multiple electrolyte abnormality, swallowing difficulty, chronic odynophagia, status post percutaneous endoscopic gastrostomy placement, cachexia, diabetes, hypertension, hyperlipidemia, hypothyroidism, hyponatremia, hypokalemia, hypomagnesemia. The patient had echocardiogram on 05/28/2017, that showed normal left ventricular size, normal left ventricular function, aortic valve calcified, mild aortic sclerosis versus mild aortic stenosis, mild aortic regurgitation, mild mitral regurgitation, trace tricuspid regurgitation, right ventricular systolic pressure 24, calculated ejection fraction 60%. RECOMMENDATIONS: We will start 3% normal saline. Cut down the normal saline to 50 mL an hour. Supplement electrolytes including Neutra-Phos and mag ox. Start PEG feeding, one can of Glucerna 4 times a day. Discussed with Dr. Yu, the electrolytes willll check tomorrow, sodium is slowly increasing to prevent demyelination. If electrolytes improved and adequate, we will consider OR tomorrow. We will not send to the OR today because the patient is severely hyponatremic and has high risk of seizure.slowly sodium is going up. The patient is on 25 mcg of levothyroxine, we may increase to 37. Discontinue 25 mcg of Levoxyl and start 37 from tomorrow because the TSH is still elevated. We will follow with you. Thank you Dr. Ibrahim for providing us the opportunity in taking care of the patient, Rylie Pierre. Discussed with the nurse taking care, of the pt.. Rigoberto Garg MD [id number]
[2017-07-25 16:30] LABS: BLOOD UREA NITROGEN 8 mg/dL (7-21); CALCIUM 8.1 mg/dL (8.4-10.5); GFR AFRICAN-AMERICAN > 60; GFR NON-AFRICAN AMERICAN > 60
[2017-07-25] MEDS ORDERED: Insulin Reg-LOW-Coverage SC SCH (16:30)
[2017-07-25] MEDS: Insulin Reg-LOW-Coverage SC SCH ×3 (17:33→22:00)
--- NOTE | 2017-07-25 19:52 | CP.PCM.PN ---
Subjective - Date & Time of Evaluation Date of Evaluation: 07/25/17 Time of Evaluation: 12:00 - Subjective Subjective: Patient still complaining of pain in throat, not complaining of L hip pain currently; otherwise, not reported to be agitated; Objective - Vital Signs/Intake and Output Vital Signs (last 24 hours): Temp Pulse Resp BP Pulse Ox 98.1 F 58 L 14 113/60 90 L 07/24/17 16:00 07/25/17 17:41 07/25/17 15:01 07/25/17 17:41 07/25/17 15:01 - Medications Medications: Current Medications Heparin Sodium (Porcine) (Heparin) 5,000 units SC Q12H [facility]UREN PRN Reason: Protocol Last Admin: 07/25/17 11:17 Dose: 5,000 units Cefepime HCl (Maxipime 1gm) 1 gm in 100 mls @ 100 mls/hr IVPB Q8 [facility]UREN PRN Reason: Protocol Last Admin: 07/25/17 13:53 Dose: 100 mls/hr Insulin Human Regular (Humulin R Low) 0 units SC ACHS [facility]UREN PRN Reason: Protocol Last Admin: 07/25/17 17:33 Dose: 1 units Insulin Human Regular (Humulin R Low) 0 units SC ACHS [facility]UREN PRN Reason: Protocol Levothyroxine Sodium (Synthroid) 25 mcg PO 0600 [facility] Magnesium Oxide (Mag-Ox) 400 mg PEG BID [facility] Stop: 07/26/17 23:59 Last Admin: 07/25/17 17:35 Dose: 400 mg Metoprolol Tartrate (Lopressor) 25 mg PEG BID [facility] Last Admin: 07/25/17 17:41 Dose: Not Given Oxycodone/Acetaminophen (Percocet 5/325 Mg Tab) 1 tab PO Q6H PRN PRN Reason: Pain, severe (8-10) Stop: 07/28/17 12:35 Last Admin: 07/25/17 13:25 Dose: 1 tab Potassium Phos/Sodium Phos (Neutra-Phos) 1 pkt PEG TID [facility] Stop: 07/26/17 23:00 Last Admin: 07/25/17 17:34 Dose: 1 pkt Vitamin A (Vitamin A & D Oint Ud Foilpak) 1 ea TOP BID PRN PRN Reason: Excoriation Last Admin: 07/24/17 18:34 Dose: 1 ea - Labs Labs: 07/25/17 07:00 07/25/17 16:05 - Constitutional Appears: Non-toxic, No Acute Distress, Cachectic - Eye Exam Eye Exam: absent: Scleral icterus - ENT Exam ENT Exam: Mucous Membranes Moist - Respiratory Exam Respiratory Exam: Clear to Ausculation Bilateral. absent: Respiratory Distress - Cardiovascular Exam Cardiovascular Exam: RRR, +S1, +S2 - GI/Abdominal Exam GI & Abdominal Exam: Soft. absent: Distended, Tenderness - Extremities Exam Additional comments: no leg edema; - Neurological Exam Neurological Exam: Alert, Awake - Psychiatric Exam Psychiatric exam: Normal Mood. absent: Agitated - Skin Skin Exam: Warm. absent: Cyanosis Assessment and Plan (1) Hyponatremia Assessment & Plan: Serum Na had been increasing gradually on NS at 75 cc/hr with 7 meq increase over 24 hr period till early this morning; however, subsequent abrupt rise in serum Na from 117 to 124 over 4 hr period that also corresponded to transient drop in Ur osm, unclear reason; Patient given 1L D5W over 2 hours to urgently decrease serum Na; -hold all IVF and monitor serum Na q6h; goal still remains to have serum Na increase no more than 6-8 meq over 24 hour period; -monitor urine osm periodically; Status: Acute (2) Hypokalemia Assessment & Plan: Along with hypomagnesemia; continue to replenish; Status: Acute - Assessment and Plan (Free Text) Assessment: Critical care time managing hyponatremia > 35 minutes;
--- NOTE | 2017-07-25 21:05 | PN ---
DATE: 07/25/2017 SUBJECTIVE: A 67-year-old female with a displaced subcapital fracture of the right hip, came in on 06/23/2017, today's date is 07/25/2017. She is getting ready for bipolar hip prosthesis of right hip, felt that she could be going on afternoon. The electrolytes are within normal limits and the CBC is pending. I got a consent from the patient and the daughter, Mariaelena. So, I plan on doing this surgery on 07/26/2017 in the afternoon and we will keep her n.p.o. after midnight for right hip bipolar prosthesis. Harsha Yu DO
[2017-07-25] MEDS ORDERED: Morphine 2 mg/2 mL syringe IVP STA (22:48)
[2017-07-26] MEDS: Cefepime 1gm in NS 100ml 1 GM/100 ML BAG IVPB SCH ×3 (06:23→22:46)
[2017-07-26] MEDS: Levothyroxine 25 MCG TAB PO SCH (06:24)
[2017-07-26] MEDS: Oxycodone/Acetaminophen 5/325 mg Tab PO PRN (06:24)
[2017-07-26] MEDS: Insulin Reg-LOW-Coverage SC SCH ×8 (08:32→22:48)
[2017-07-26] MEDS ORDERED: Sodium Chloride 0.9% 1,000 ML IV SCH (08:43)
[2017-07-26 09:01] LABS: ALBUMIN 3.2 g/dL (3.0-4.8); BLOOD UREA NITROGEN 12 mg/dL (7-21); CALCIUM 8.3 mg/dL (8.4-10.5); GFR AFRICAN-AMERICAN > 60; GFR NON-AFRICAN AMERICAN > 60
[2017-07-26 09:02] LABS: ALB/GLOB RATIO 0.9 (1.1-1.8)
[2017-07-26 09:03] LABS: ALT/SGPT 32 U/L (7-56); AST/SGOT 48 U/L (14-36)
[2017-07-26] MEDS: Potassium & Sodium Phosphate PEG SCH ×3 (10:33→17:34)
[2017-07-26] MEDS: Magnesium Oxide 400 mg Tab UD PEG SCH ×2 (10:33→17:34)
--- NOTE | 2017-07-26 13:27 | PN ---
DATE: 07/26/2017 REASON FOR CONSULTATION AND FOLLOWUP: Preop evaluation, risk stratification for right hip surgery status post fall, multiple electrolyte abnormality. SUBJECTIVE: The patient is complaining of throat pain, denies any chest pain. She is status post PEG placement. OBJECTIVE: GENERAL: Lying flat, but complaining of throat pain. VITAL SIGNS: Temperature afebrile, heart rate 65, blood pressure 109/71. HEENT: PERRLA. Intact. NECK: Supple. No carotid bruit or thyromegaly. CHEST: Clear to auscultation. HEART: S1 and S2, regular. ABDOMEN: Soft. EXTREMITIES: Clubbing and cyanosis, negative. LABORATORY DATA: Blood workup as follows: WBC 12.3, hemoglobin 10.3, hematocrit 29.9, platelet count 269. Chemistry shows sodium 126, potassium 4.2, chloride 93, carbon dioxide 29, anion gap of 12. BUN 12, creatinine 0.5. Calcium 8.3, phosphorus 2.3, magnesium 2. IMPRESSION: Hyponatremia, hypophosphatemia, multiple electrolyte abnormality, swallowing difficulty, history of fall, status post fractured hip. Last echo dated 05/28/2017, showed normal left ventricular size, normal left ventricular function, aortic calcification, mild aortic sclerosis versus mild aortic stenosis, mild aortic regurgitation, mild mitral regurgitation, trace tricuspid regurgitation, right ventricular systolic pressure 24, calculated ejection fraction 60%. RECOMMENDATIONS: Yesterday, we started 3% normal saline. The patient is being followed Nephrology Dr. Zuniga, monitoring sodium. The patient is rescheduled for surgery on . Continue feeding with Glucerna includes 2 cans four times a day. Electrolyte management as per Dr. Zuniga who supplement Neutra-Phos. Gradually, we increase sodium to prevent cerebellopontine demyelination. Once the sodium is above 130, the patient will be cleared to go for surgery. Further sodium management as per Dr. Zuniga. We will give 100 mL of free fluid, increase PEG feeding to six cans per day. Repeat the blood workup in the morning. Thank you Dr. Yu/Dr. Ibrahim, for providing us the opportunity in taking care of the patient, Rylie Pierre. Rigoberto Garg MD [facility] # [id number]
--- NOTE | 2017-07-26 15:37 | CP.PCM.PN ---
<Ousmane Mar - Last Filed: 07/26/17 23:36> Subjective - Date & Time of Evaluation Date of Evaluation: 07/26/17 Time of Evaluation: 15:00 - Subjective Subjective: Patient seen and examined at bedside. Patient is completely alert and awake. Stating she wants to sit up on the edge of the bed to eat. Patient is noted yelling at nurse, nurse aids, and phleobotomist to get out. Currently refusing blood work once again. Admits to pain in throat and right hip. ROS limited due to patient being incooperative. Objective - Vital Signs/Intake and Output Vital Signs (last 24 hours): Temp Pulse Resp BP Pulse Ox 98.1 F 68 26 H 129/71 99 07/24/17 16:00 07/26/17 14:00 07/26/17 06:00 07/26/17 06:00 07/26/17 06:00 Intake and Output: 07/26/17 07/26/17 06:59 18:59 Intake Total 200 Balance 200 - Medications Medications: Current Medications Heparin Sodium (Porcine) (Heparin) 5,000 units SC Q12H [facility] PRN Reason: Protocol Last Admin: 07/26/17 09:34 Dose: Not Given Cefepime HCl (Maxipime 1gm) 1 gm in 100 mls @ 100 mls/hr IVPB Q8 [facility] PRN Reason: Protocol Last Admin: 07/26/17 14:27 Dose: Not Given Insulin Human Regular (Humulin R Low) 0 units SC ACHS [facility] PRN Reason: Protocol Last Admin: 07/26/17 12:00 Dose: Not Given Insulin Human Regular (Humulin R Low) 0 units SC ACHS [facility] PRN Reason: Protocol Last Admin: 07/26/17 11:46 Dose: Not Given Levothyroxine Sodium (Synthroid) 25 mcg PO 0600 [facility] Last Admin: 07/26/17 06:24 Dose: 25 mcg Magnesium Oxide (Mag-Ox) 400 mg PEG BID [facility] Stop: 07/26/17 23:59 Last Admin: 07/26/17 10:33 Dose: Not Given Metoprolol Tartrate (Lopressor) 25 mg PEG BID [facility] Last Admin: 07/26/17 10:33 Dose: Not Given Oxycodone/Acetaminophen (Percocet 5/325 Mg Tab) 1 tab PO Q6H PRN PRN Reason: Pain, severe (8-10) Stop: 07/28/17 12:35 Last Admin: 07/26/17 06:24 Dose: 1 tab Potassium Phos/Sodium Phos (Neutra-Phos) 1 pkt PEG TID [facility] Stop: 07/26/17 23:00 Last Admin: 07/26/17 14:27 Dose: Not Given Vitamin A (Vitamin A & D Oint Ud Foilpak) 1 ea TOP BID PRN PRN Reason: Excoriation Last Admin: 07/24/17 18:34 Dose: 1 ea - Labs Labs: 07/25/17 07:00 07/26/17 04:10 - Head Exam Head Exam: ATRAUMATIC, NORMAL INSPECTION, NORMOCEPHALIC - Eye Exam Eye Exam: EOMI - ENT Exam ENT Exam: Mucous Membranes Moist - Neck Exam Neck Exam: Full ROM, Normal Inspection - Respiratory Exam Respiratory Exam: Clear to Ausculation Bilateral. absent: Wheezes - Cardiovascular Exam Cardiovascular Exam: REGULAR RHYTHM, +S1, +S2 - GI/Abdominal Exam GI & Abdominal Exam: Soft, Diminished Bowel Sounds - Neurological Exam Neurological Exam: Alert, Awake - Psychiatric Exam Psychiatric exam: Agitated - Skin Skin Exam: Intact, Normal Color Assessment and Plan - Assessment and Plan (Free Text) Assessment: 67 F with PMH of HTN, DM, Hypothyroidism, cachexia, s/p PEG tube, odynophagia presenting with hyponatremia, hypomagnesemia, hypochloremia, hypokalemia, and right displaced subcapital fracture of right hip s/p unwitnessed fall Plan: Altered mental status secondary to Hyponatremia -Telemetry hold in ICU -Nephrology on consult -Continue to monitor sodium levels -Maintain and replete electrolytes as needed -TSH level elevated, synthroid resumed, will adjust dose accordingly Right subcapital hip fracture -Orthopedics consulted -Cardiac and Renal clearance for surgery pending Sodium 130 -NPO after midnight -Surgery scheduled for tomorrow Leukocytosis -Blood cultures no growth after 48 hours and Urine cultures show no growth -MRSA screen negative -Monitor WBC -Procalcitonin low at <0.05 Hypertension -Monitor vitals -Metoprolol tartrate 25 PO BID Hypothyroidism -Continue Synthroid NIDDM -ISS-Low -Cont with accuchecks qACHS <Patrice,Anwar A - Last Filed: 07/27/17 07:34> Objective - Vital Signs/Intake and Output Vital Signs (last 24 hours): Temp Pulse Resp BP Pulse Ox 99 F 65 19 144/64 100 07/27/17 00:00 07/27/17 07:27 07/27/17 07:20 07/27/17 07:01 07/27/17 07:20 - Medications Medications: Current Medications Heparin Sodium (Porcine) (Heparin) 5,000 units SC Q12H [facility] PRN Reason: Protocol Last Admin: 07/26/17 22:46 Dose: 5,000 units Cefepime HCl (Maxipime 1gm) 1 gm in 100 mls @ 100 mls/hr IVPB Q8 [facility] PRN Reason: Protocol Last Admin: 07/27/17 06:19 Dose: 100 mls/hr Insulin Human Regular (Humulin R Low) 0 units SC ACHS [facility] PRN Reason: Protocol Last Admin: 07/27/17 07:32 Dose: Not Given Insulin Human Regular (Humulin R Low) 0 units SC ACHS [facility] PRN Reason: Protocol Last Admin: 07/27/17 07:29 Dose: Not Given Levothyroxine Sodium (Synthroid) 25 mcg PO 0600 [facility] Last Admin: 07/27/17 06:19 Dose: 25 mcg Metoprolol Tartrate (Lopressor) 25 mg PEG BID [facility] Last Admin: 07/26/17 17:34 Dose: Not Given Oxycodone/Acetaminophen (Percocet 5/325 Mg Tab) 1 tab PO Q6H PRN PRN Reason: Pain, severe (8-10) Stop: 07/28/17 12:35 Last Admin: 07/26/17 06:24 Dose: 1 tab Vitamin A (Vitamin A & D Oint Ud Foilpak) 1 ea TOP BID PRN PRN Reason: Excoriation Last Admin: 07/24/17 18:34 Dose: 1 ea - Labs Labs: 07/27/17 05:40 07/27/17 05:40 Attending/Attestation - Attestation I have personally seen and examined this patient.: Yes I have fully participated in the care of the patient.: Yes I have reviewed all pertinent clinical information, including history, physical exam and plan: Yes Notes (Text): [birth year] 67 year old female with past medical history of hypertension, hypothyroidism, hyponatremia and chronic odynophagia who presented s/p fall at home. She was found to have severe hyponatremia (110) and started on fluids as per nephrology with serial BMP q4-6 hrs. Her sodium level has been improving. She was also found to have right subcapital hip fracture on imaging. Orthopedics is planning. Plan is for OR if hyponatremia continues to improve. Leukocytosis noted; likely stress reactive, however will need to rule out infection. WBC is improved today. Continue with iv antibiotics while awaiting cultures. Procalcitonin was not elevated. Cultures negative to date. Bandar Ibrahim MD Hospitalist.
[2017-07-26 21:03] LABS: BLOOD UREA NITROGEN 11 mg/dL (7-21); CALCIUM 8.7 mg/dL (8.4-10.5); GFR AFRICAN-AMERICAN > 60; GFR NON-AFRICAN AMERICAN > 60
[2017-07-26 22:30] LABS: OSMOLALITY,URINE 530 mosm/kg (300-1000)
--- NOTE | 2017-07-26 23:35 | CP.PCM.PN ---
Subjective - Date & Time of Evaluation Date of Evaluation: 07/26/17 Time of Evaluation: 10:00 - Subjective Subjective: Patient still pointing to throat and L hip, reporting [place]; orthopedic procedure postponed by anesthesiology due concern for hyponatremia; Objective - Vital Signs/Intake and Output Vital Signs (last 24 hours): Temp Pulse Resp BP Pulse Ox 99 F 66 15 157/73 H 100 07/26/17 20:00 07/26/17 22:00 07/26/17 17:30 07/26/17 16:00 07/26/17 16:40 - Medications Medications: Current Medications Heparin Sodium (Porcine) (Heparin) 5,000 units SC Q12H [facility] PRN Reason: Protocol Last Admin: 07/26/17 22:46 Dose: 5,000 units Cefepime HCl (Maxipime 1gm) 1 gm in 100 mls @ 100 mls/hr IVPB Q8 [facility] PRN Reason: Protocol Last Admin: 07/26/17 22:46 Dose: 100 mls/hr Insulin Human Regular (Humulin R Low) 0 units SC ACHS [facility] PRN Reason: Protocol Last Admin: 07/26/17 22:48 Dose: Not Given Insulin Human Regular (Humulin R Low) 0 units SC ACHS [facility] PRN Reason: Protocol Last Admin: 07/26/17 17:33 Dose: Not Given Levothyroxine Sodium (Synthroid) 25 mcg PO 0600 [facility] Last Admin: 07/26/17 06:24 Dose: 25 mcg Magnesium Oxide (Mag-Ox) 400 mg PEG BID [facility] Stop: 07/26/17 23:59 Last Admin: 07/26/17 17:34 Dose: Not Given Metoprolol Tartrate (Lopressor) 25 mg PEG BID [facility] Last Admin: 07/26/17 17:34 Dose: Not Given Oxycodone/Acetaminophen (Percocet 5/325 Mg Tab) 1 tab PO Q6H PRN PRN Reason: Pain, severe (8-10) Stop: 07/28/17 12:35 Last Admin: 07/26/17 06:24 Dose: 1 tab Vitamin A (Vitamin A & D Oint Ud Foilpak) 1 ea TOP BID PRN PRN Reason: Excoriation Last Admin: 07/24/17 18:34 Dose: 1 ea - Labs Labs: 07/25/17 07:00 07/26/17 20:45 - Constitutional Appears: Non-toxic, No Acute Distress - Eye Exam Eye Exam: absent: Scleral icterus - ENT Exam ENT Exam: Mucous Membranes Moist - Respiratory Exam Respiratory Exam: Clear to Ausculation Bilateral. absent: Respiratory Distress - Cardiovascular Exam Cardiovascular Exam: RRR, +S1, +S2 - GI/Abdominal Exam GI & Abdominal Exam: Soft. absent: Distended, Tenderness - Exam Additional comments: kitchen in place - Extremities Exam Additional comments: no leg edema; - Neurological Exam Neurological Exam: Alert, Awake - Psychiatric Exam Psychiatric exam: absent: Agitated - Skin Skin Exam: Warm. absent: Cyanosis Assessment and Plan (1) Hyponatremia Assessment & Plan: Continues to improve gradually; discussed with anesthesiology, should expect serum Na to be in low 130's by tomorrow; on further eval, Ur osm elevated this evening with concern that hyponatremia may again worsen; giving IV lasix 20 mg x 1 to help block free water retention; Status: Acute (2) Hypokalemia Assessment & Plan: Resolved but should monitor closely and replenish any losses since we are diuresing her; Status: Acute
[2017-07-27] MEDS: Levothyroxine 25 MCG TAB PO SCH (06:19)
[2017-07-27] MEDS: Cefepime 1gm in NS 100ml 1 GM/100 ML BAG IVPB SCH (06:19)
[2017-07-27 06:48] LABS: HEMOGLOBIN 10.4 g/dL (12.0-16.0); RBC 3.95 10^6/uL (3.5-6.1); WHITE BLOOD COUNT 7.9 10^3/ul (4.5-11.0)
[2017-07-27 06:49] LABS: BASO # 0.02 K/mm3 (0.0-2.0); BASO % 0.3 % (0.0-3.0); EOS % 0.3 % (1.5-5.0); GRAN # 6.37 (1.4-6.5); GRAN % 80.6 % (50.0-68.0); LYMPH # 0.9 (1.2-3.4); LYMPH % 11.3 % (22.0-35.0); MEAN CORPUSCULAR HEMOGLOBIN 26.3 pg (25.0-35.0); MEAN CORPUSCULAR HGB CONC 32.9 g/dl (31.0-37.0); MEAN PLATELET VOLUME 8.8 fl (7.0-11.0); MONO # 0.6 (0.1-0.6); MONO % 7.5 % (1.0-6.0); RED CELL DISTRIBUTION WIDTH 14.9 % (11.5-14.5)
[2017-07-27 07:18] LABS: ALBUMIN 3.8 g/dL (3.0-4.8); ALT/SGPT 34 U/L (7-56); AST/SGOT 36 U/L (14-36); BLOOD UREA NITROGEN 10 mg/dL (7-21); CALCIUM 8.8 mg/dL (8.4-10.5); GFR AFRICAN-AMERICAN > 60; GFR NON-AFRICAN AMERICAN > 60
[2017-07-27] MEDS: Insulin Reg-LOW-Coverage SC SCH ×5 (07:29→22:15)
[2017-07-27] MEDS ORDERED: Tolvaptan 15 MG TAB PO ONE (08:13)
[2017-07-27] MEDS: Dextrose 5%/0.9% NS 1,000 ML IV SCH ×2 (08:26→21:26)
[2017-07-27] MEDS: Vitamins A & D Oint UD Foilpak TOP PRN (08:27)
[2017-07-27 09:15] LABS: OSMOLALITY,URINE 472 mosm/kg (300-1000)
[2017-07-27] MEDS ORDERED: Bupivacaine 0.5% Inj(30mL) ONE (11:10)
--- NOTE | 2017-07-27 11:42 | PN ---
DATE: 07/27/2017 REASON FOR CONSULTATION: Preop evaluation, risk stratification for hip surgery, status post fall, multiple electrolyte abnormality, hypokalemia, hyponatremia. SUBJECTIVE: The patient denies any chest pain, pointing toward the throat, denies any shortness of breath, but complaining of throat pain and pain in the right hip. PHYSICAL EXAMINATION: GENERAL: Not in apparent distress. VITAL SIGNS: As follows, temperature afebrile, heart rate 65, blood pressure 134/93. HEENT: PERRLA. Extraocular muscles intact. NECK: Supple. No carotid bruit. No thyromegaly. CHEST: Clear to auscultation. HEART: S1 and S2 regular. ABDOMEN: Soft. EXTREMITIES: Clubbing and cyanosis negative. LABORATORY DATA: Blood workup as follows: WBC 7.9, hemoglobin 10.4, hematocrit 31.6, platelet count 392. Chemistry shows sodium 130, potassium 3.9, chloride 91, carbon dioxide 29, anion gap of 14, BUN 10, creatinine 0.5. IMPRESSION: Hyponatremia, resolving; hypokalemia, resolving; status post fall, fractured hip, odynophagia, swallowing difficulty, pain in throat, status post percutaneous endoscopic gastrostomy, preserved left ventricular function. Last echo on 05/28/2017 shows normal left ventricular function, mild aortic sclerosis versus aortic stenosis, mild aortic regurgitation, mild mitral regurgitation, trace tricuspid regurgitation, right ventricular systolic pressure of 24, calculated ejection fraction of 60%. RECOMMENDATIONS: The patient is cleared to go for surgery, possible OR today. We will monitor postop electrolytes closely, supplement electrolytes p.r.n. as needed, diuretics as per Dr. Zuniga and fluid as per Dr. Zuniga, lcac radar operator/navigator. Continue beta-aki and continue supplement Synthroid. We will follow with you. Rigoberto Garg MD
[2017-07-27] MEDS ORDERED: Etomidate 20 mg/10ml Inj IV ONE (12:53)
[2017-07-27] MEDS ORDERED: HYDROmorphone 0.5 mg/0.5 ml ISec IVP PRN (12:58)
[2017-07-27] MEDS ORDERED: Lactated Ringer's 1,000 ML IV SCH (13:00)
--- NOTE | 2017-07-27 13:47 | CP.PCM.PN ---
<Ousmane Mar - Last Filed: 07/27/17 15:55> Subjective - Date & Time of Evaluation Date of Evaluation: 07/27/17 Time of Evaluation: 08:30 - Subjective Subjective: Patient seen and examined at bedside in no acute distress. Patient alert and awake, communicating in [place]. She is aware of surgery scheduled for today. ROS limited due to patient's baseline lack of cooperation however only admits to neck and right hip pain. Objective - Vital Signs/Intake and Output Vital Signs (last 24 hours): Temp Pulse Resp BP Pulse Ox 98.1 F 65 47 H 123/62 100 07/27/17 11:44 07/27/17 12:52 07/27/17 12:52 07/27/17 12:00 07/27/17 12:50 Intake and Output: 07/27/17 07/27/17 06:59 18:59 Intake Total 200 330 Output Total 1200 1050 Balance -1000 -720 - Medications Medications: Current Medications Heparin Sodium (Porcine) (Heparin) 5,000 units SC Q12H [facility] PRN Reason: Protocol Last Admin: 07/27/17 08:48 Dose: Not Given Hydromorphone HCl (Dilaudid) 0.25 mg IVP Q15M PRN PRN Reason: Pain, moderate (4-7) Stop: 07/27/17 14:59 Dextrose/Sodium Chloride (Dextrose 5%/0.9% Ns 1000 Ml) 1,000 mls @ 75 mls/hr IV .[id number] [facility] Last Admin: 07/27/17 08:26 Dose: 75 mls/hr Lactated Ringer's (Lactated Ringer's) 1,000 mls @ 75 mls/hr IV .[id number] [facility] Stop: 07/27/17 15:01 Insulin Human Regular (Humulin R Low) 0 units SC ACHS [facility] PRN Reason: Protocol Last Admin: 07/27/17 11:19 Dose: Not Given Levothyroxine Sodium (Synthroid) 25 mcg PO 0600 [facility] Last Admin: 07/27/17 06:19 Dose: 25 mcg Metoclopramide HCl (Reglan) 10 mg IV ONCE PRN PRN Reason: Nausea/Vomiting Metoprolol Tartrate (Lopressor) 25 mg PEG BID [facility] Last Admin: 07/27/17 10:00 Dose: Not Given Oxycodone/Acetaminophen (Percocet 5/325 Mg Tab) 1 tab PO Q6H PRN PRN Reason: Pain, severe (8-10) Stop: 07/28/17 12:35 Last Admin: 07/26/17 06:24 Dose: 1 tab Vitamin A (Vitamin A & D Oint Ud Foilpak) 1 ea TOP BID PRN PRN Reason: Excoriation Last Admin: 07/27/17 08:27 Dose: 1 ea - Labs Labs: 07/27/17 05:40 07/27/17 05:40 - Head Exam Head Exam: ATRAUMATIC, NORMAL INSPECTION, NORMOCEPHALIC - Eye Exam Eye Exam: Normal appearance - ENT Exam ENT Exam: Mucous Membranes Moist, Normal Exam - Neck Exam Neck Exam: Full ROM - Respiratory Exam Respiratory Exam: Clear to Ausculation Bilateral, NORMAL BREATHING PATTERN. absent: Rhonchi, Wheezes - Cardiovascular Exam Cardiovascular Exam: REGULAR RHYTHM, +S1, +S2 - GI/Abdominal Exam GI & Abdominal Exam: Soft, Normal Bowel Sounds - Neurological Exam Neurological Exam: Alert, Awake - Psychiatric Exam Psychiatric exam: Agitated - Skin Skin Exam: Normal Color, Warm Assessment and Plan - Assessment and Plan (Free Text) Assessment: 67 F with PMH of HTN, DM, Hypothyroidism, cachexia, s/p PEG tube, odynophagia presenting with hyponatremia, hypomagnesemia, hypochloremia, hypokalemia, and right displaced subcapital fracture of right hip s/p unwitnessed fall Plan: Altered mental status secondary to Hyponatremia -Telemetry hold in ICU -Nephrology on consult -Continue to monitor sodium levels -Maintain and replete electrolytes as needed -TSH level elevated, synthroid resumed Right subcapital hip fracture -Orthopedics consulted -Cardiac and Renal clearance received for surgery -NPO -Surgery to be performed today Leukocytosis -Blood cultures no growth after 48 hours and Urine cultures show no growth -MRSA screen negative -Monitor WBC which continues to downtrend -Procalcitonin low at <0.05 -Continue with treatment with antibiotics Hypertension -Monitor vitals -Metoprolol tartrate 25 PO BID Hypothyroidism -Continue Synthroid NIDDM -ISS-Low -Cont with accuchecks qACHS <Bandar Ibrahim - Last Filed: 07/27/17 16:33> Objective - Vital Signs/Intake and Output Vital Signs (last 24 hours): Temp Pulse Resp BP Pulse Ox 98.3 F 60 16 151/84 H 100 07/27/17 16:05 07/27/17 16:05 07/27/17 16:05 07/27/17 16:05 07/27/17 16:05 Intake and Output: 07/27/17 07/27/17 06:59 18:59 Intake Total 200 330 Output Total 1200 1050 Balance -1000 -720 - Medications Medications: Current Medications Heparin Sodium (Porcine) (Heparin) 5,000 units SC Q12 [facility] PRN Reason: Protocol Dextrose/Sodium Chloride (Dextrose 5%/0.9% Ns 1000 Ml) 1,000 mls @ 75 mls/hr IV .[id number] [facility] Last Admin: 07/27/17 08:26 Dose: 75 mls/hr Insulin Human Regular (Humulin R Low) 0 units SC ACHS [facility] PRN Reason: Protocol Last Admin: 07/27/17 11:19 Dose: Not Given Levothyroxine Sodium (Synthroid) 25 mcg PO 0600 [facility] Last Admin: 07/27/17 06:19 Dose: 25 mcg Metoclopramide HCl (Reglan) 10 mg IV ONCE PRN PRN Reason: Nausea/Vomiting Metoprolol Tartrate (Lopressor) 25 mg PEG BID [facility] Last Admin: 07/27/17 10:00 Dose: Not Given Morphine Sulfate (Morphine) 1 mg IVP Q6H PRN PRN Reason: Pain, moderate (4-7) Last Admin: 07/27/17 15:55 Dose: 1 mg Oxycodone/Acetaminophen (Percocet 5/325 Mg Tab) 1 tab PO Q6H PRN PRN Reason: Pain, severe (8-10) Stop: 07/28/17 12:35 Last Admin: 07/26/17 06:24 Dose: 1 tab Vitamin A (Vitamin A & D Oint Ud Foilpak) 1 ea TOP BID PRN PRN Reason: Excoriation Last Admin: 07/27/17 08:27 Dose: 1 ea - Labs Labs: 07/27/17 05:40 07/27/17 05:40 - Extremities Exam Additional comments: limited ROM right hip due to pain Attending/Attestation - Attestation I have personally seen and examined this patient.: Yes I have fully participated in the care of the patient.: Yes I have reviewed all pertinent clinical information, including history, physical exam and plan: Yes Notes (Text): 07/27/17 16:31 67 year old female with past medical history of hypertension, hypothyroidism, hyponatremia and chronic odynophagia who presented s/p fall at home. She was found to have severe hyponatremia (110) and started on fluids as per nephrology with serial BMP q4-6 hrs. Her sodium level has improved to 130 today. She was also found to have right subcapital hip fracture on imaging. Orthopedics is following and plan is for OR this afternoon. Leukocytosis was likely stress reactive. WBC has improved. Procalcitonin was not elevated. Cultures negative to date. Consider to d/c antibiotics. She is on synthroid for hypothyroidism. Bandar Ibrahim MD Hospitalist.
[2017-07-27] MEDS ORDERED: ePHEDrine 50 mg/ml Inj ONE (14:11)
[2017-07-27] MEDS ORDERED: Desflurane Inhalation Anesthetic Liq (240 ml) ONE (14:12)
[2017-07-27] MEDS ORDERED: Vancomycin 1 g Inj ONE (14:20)
[2017-07-27] MEDS ORDERED: Labetalol 5 mg/ml Inj 20ML ONE (15:10)
[2017-07-27] MEDS ORDERED: Neostigmine Methylsulfate 3mg/3ml Syringe IV ONE (15:17)
[2017-07-27] MEDS: Morphine 2 mg/2 mL syringe IVP PRN ×2 (15:55→18:21)
[2017-07-27] MEDS ORDERED: Morphine 2 mg/2 mL syringe ONE (15:57)
[2017-07-27 18:33] LABS: BASO # 0.03 K/mm3 (0.0-2.0); BASO % 0.3 % (0.0-3.0); EOS % 0.2 % (1.5-5.0); GRAN # 8.09 (1.4-6.5); GRAN % 79.8 % (50.0-68.0); HEMOGLOBIN 8.6 g/dL (12.0-16.0); LYMPH % 10.1 % (22.0-35.0); MEAN CELL VOLUME 80.6 fl (80.0-105.0); MEAN CORPUSCULAR HEMOGLOBIN 26.5 pg (25.0-35.0); MEAN CORPUSCULAR HGB CONC 32.8 g/dl (31.0-37.0); MEAN PLATELET VOLUME 8.7 fl (7.0-11.0); MONO % 9.6 % (1.0-6.0); RBC 3.25 10^6/uL (3.5-6.1); RED CELL DISTRIBUTION WIDTH 14.9 % (11.5-14.5)
[2017-07-27 18:34] LABS: WHITE BLOOD COUNT 10.1 10^3/ul (4.5-11.0)
--- NOTE | 2017-07-27 19:53 | CP.PCM.PN ---
Subjective - Date & Time of Evaluation Date of Evaluation: 07/27/17 Time of Evaluation: 11:00 - Subjective Subjective: Patient seen prior to OR for R hip replacement; was still complaining of throat and hip discomfort/pain; Objective - Vital Signs/Intake and Output Vital Signs (last 24 hours): Temp Pulse Resp BP Pulse Ox 98.1 F 54 L 18 132/59 L 100 07/27/17 17:00 07/27/17 18:20 07/27/17 18:20 07/27/17 18:00 07/27/17 18:20 Intake and Output: 07/27/17 07/28/17 18:59 06:59 Intake Total 760 Output Total 1050 Balance -290 - Medications Medications: Current Medications Heparin Sodium (Porcine) (Heparin) 5,000 units SC Q12 [facility] PRN Reason: Protocol Dextrose/Sodium Chloride (Dextrose 5%/0.9% Ns 1000 Ml) 1,000 mls @ 75 mls/hr IV .[id number] [facility] Last Admin: 07/27/17 08:26 Dose: 75 mls/hr Insulin Human Regular (Humulin R Low) 0 units SC ACHS [facility] PRN Reason: Protocol Last Admin: 07/27/17 17:05 Dose: 2 units Levothyroxine Sodium (Synthroid) 25 mcg PO 0600 [facility] Last Admin: 07/27/17 06:19 Dose: 25 mcg Metoclopramide HCl (Reglan) 10 mg IV ONCE PRN PRN Reason: Nausea/Vomiting Metoprolol Tartrate (Lopressor) 25 mg PEG BID [facility] Last Admin: 07/27/17 17:06 Dose: Not Given Morphine Sulfate (Morphine) 1 mg IVP Q6H PRN PRN Reason: Pain, moderate (4-7) Last Admin: 07/27/17 18:21 Dose: 1 mg Oxycodone/Acetaminophen (Percocet 5/325 Mg Tab) 1 tab PO Q6H PRN PRN Reason: Pain, severe (8-10) Stop: 07/28/17 12:35 Last Admin: 07/26/17 06:24 Dose: 1 tab Vitamin A (Vitamin A & D Oint Ud Foilpak) 1 ea TOP BID PRN PRN Reason: Excoriation Last Admin: 07/27/17 08:27 Dose: 1 ea - Labs Labs: 07/27/17 17:50 07/27/17 05:40 - Constitutional Appears: Non-toxic, No Acute Distress, Cachectic - Eye Exam Eye Exam: Normal appearance - ENT Exam ENT Exam: Mucous Membranes Moist - Respiratory Exam Respiratory Exam: Clear to Ausculation Bilateral. absent: Respiratory Distress - Cardiovascular Exam Cardiovascular Exam: RRR, +S1, +S2 - GI/Abdominal Exam GI & Abdominal Exam: Soft. absent: Distended, Tenderness - Extremities Exam Additional comments: no leg edema; - Neurological Exam Neurological Exam: Alert, Awake - Psychiatric Exam Psychiatric exam: absent: Agitated - Skin Skin Exam: Warm. absent: Cyanosis Assessment and Plan (1) Hyponatremia Assessment & Plan: Stable after being given IV lasix dose overnight but still with high Ur osm so concern for persistent impetus for free water retention (and hence hyponatremia) ; -additional dose of IV lasix 20 mg given this morning and started on IVF w/ D5- NS at 75 cc/hr; Status: Acute (2) Hypokalemia Assessment & Plan: Resolved, but K still on lower end of normal; continue to monitor for recurrence of hypokalemia; Status: Acute
--- NOTE | 2017-07-27 20:26 | OP ---
PROCEDURE DATE: 07/27/2017 PREOPERATIVE DIAGNOSIS: Displaced subcapital fracture of right hip with osteoporosis. POSTOPERATIVE DIAGNOSIS: Displaced subcapital fracture of right hip with osteoporosis. PROCEDURE: Right hip bipolar hip prosthesis using Biomet hip implant, size of 10 mm stem, 130 mm long, with a 46 mm bipolar component and -3 neck. WAREHOUSE LABORER SURGEON: Phan Martinez DPM, podiatry resident. ANESTHESIA: General with endotracheal tube. DESCRIPTION OF PROCEDURE: Patient was taken to the OR. Right hip prepped and draped in sterile fashion, in the left lateral decubitus position with the right hip up. Posterolateral incision made over the right hip, from the greater trochanter distally seven inches. Deep knife was used to go through the fascia willy and the gluteus courtney, and external rotators identified and freed from the insertion and then we have got a large flexion contracture i realeased the psoas muscle tendon unit and took out the femoral head with a corkscrew device and did a proper reaming and rasping of the proximal femur so that a femoral stem fit at 10 mm wide and 130 mm long, and 46 mm cup and -3 neck. After the trial reduction was stable, we put in the final implant, was press-fit, and then irrigated out the wound several times and closed it over some vancomycin 2 g powder, then closed the fascia with 0 Vicryl and the capsular tissue through the bone 4 times with heavy suture and closed the fascia willy, then the subcutaneous tissue, and the skin with stainless steel simeon. The patient was taken to the recovery room with abduction pillow and knee immobilizer to minimize the chance of dislocation. Harsha Yu DO ALEXANDRO
[2017-07-27] MEDS: Oxycodone/Acetaminophen 5/325 mg Tab PO PRN (21:47)
[2017-07-28] MEDS: Morphine 2 mg/2 mL syringe IVP PRN ×2 (03:30→21:18)
[2017-07-28] MEDS: Vitamins A & D Oint UD Foilpak TOP PRN (04:09)
[2017-07-28] MEDS: Levothyroxine 25 MCG TAB PO SCH (05:41)
[2017-07-28] MEDS: Insulin Reg-LOW-Coverage SC SCH ×4 (08:12→22:07)
[2017-07-28] MEDS ORDERED: Enoxaparin 30 mg Syringe SC SCH (09:00)
--- NOTE | 2017-07-28 09:46 | RAD ---
PROCEDURE: Right hip single view HISTORY: rt hip fx post op prosthesis COMPARISON: TECHNIQUE: Single-view FINDINGS: There is a new right hip prosthesis. There are no complicating factors. IMPRESSION: As above
--- NOTE | 2017-07-28 11:04 | CP.PCM.PN ---
<Manuel Cid - Last Filed: 07/28/17 10:55> Subjective - Date & Time of Evaluation Date of Evaluation: 07/28/17 Time of Evaluation: 10:55 - Subjective Subjective: Patient seen and evaluated this AM. No acute events overnight reported. Patient underwent surgery with ortho yesterday. Patient indicates pain associated with throat and right leg. She indicates she wants to move her legs but cannot due to immobilization per ortho. Denies chest pain, shortness of breath, abdominal pain, fever, nausea, vomiting, dizziness, weakness. Patient refusing lab draws at this time. Objective - Vital Signs/Intake and Output Vital Signs (last 24 hours): Temp Pulse Resp BP Pulse Ox 96.5 F L 80 15 116/61 100 07/28/17 04:24 07/28/17 10:21 07/28/17 06:00 07/28/17 10:21 07/28/17 06:00 Intake and Output: 07/28/17 07/28/17 06:59 18:59 Intake Total 1250 Output Total 225 Balance 1025 - Medications Medications: Current Medications Heparin Sodium (Porcine) (Heparin) 5,000 units SC Q12 [facility] PRN Reason: Protocol Last Admin: 07/28/17 10:21 Dose: 5,000 units Insulin Human Regular (Humulin R Low) 0 units SC ACHS [facility] PRN Reason: Protocol Last Admin: 07/28/17 08:12 Dose: 2 units Levothyroxine Sodium (Synthroid) 25 mcg PO 0600 [facility] Last Admin: 07/28/17 05:41 Dose: 25 mcg Metoclopramide HCl (Reglan) 10 mg IV ONCE PRN PRN Reason: Nausea/Vomiting Metoprolol Tartrate (Lopressor) 25 mg PEG BID [facility] Last Admin: 07/28/17 10:21 Dose: 25 mg Morphine Sulfate (Morphine) 1 mg IVP Q6H PRN PRN Reason: Pain, moderate (4-7) Last Admin: 07/28/17 03:30 Dose: 1 mg Oxycodone/Acetaminophen (Percocet 5/325 Mg Tab) 1 tab PO Q6H PRN PRN Reason: Pain, severe (8-10) Stop: 07/28/17 12:35 Last Admin: 07/27/17 21:47 Dose: 1 tab Vitamin A (Vitamin A & D Oint Ud Foilpak) 1 ea TOP BID PRN PRN Reason: Excoriation Last Admin: 07/28/17 04:09 Dose: 1 ea - Labs Labs: 07/27/17 17:50 07/27/17 05:40 - Constitutional Appears: Non-toxic, Older Than Stated Age - Head Exam Head Exam: ATRAUMATIC, NORMAL INSPECTION, NORMOCEPHALIC - Eye Exam Eye Exam: EOMI, PERRL - ENT Exam Additional comments: Poor dentation, - Neck Exam Neck Exam: Full ROM - Respiratory Exam Respiratory Exam: Clear to Ausculation Bilateral, NORMAL BREATHING PATTERN. absent: Rales, Rhonchi, Wheezes - Cardiovascular Exam Cardiovascular Exam: REGULAR RHYTHM, +S1, +S2 - GI/Abdominal Exam GI & Abdominal Exam: Soft, Normal Bowel Sounds. absent: Guarding, Rigid, Tenderness - Extremities Exam Extremities Exam: Tenderness. absent: Pedal Edema Additional comments: associated with right hip surgery, right hip surgical scar with dressing c/d/i - Neurological Exam Neurological Exam: Alert, Awake, Oriented x3 Additional comments: Right leg immobilized secondary to surgery Motor and sensory grossly intact - Psychiatric Exam Psychiatric exam: Agitated - Skin Skin Exam: Dry, Warm Assessment and Plan - Assessment and Plan (Free Text) Assessment: 67 year old female with past medical history of hypertension, hypothyroidism, hyponatremia and chronic odynophagia who presented s/p fall at home. Patient has right displaced subcapital fracture of right hip, POD#1 from ORIF of right hip. Plan: Altered mental status secondary to Hyponatremia -Nephrology consulted and following -Continue to monitor sodium levels, patient refusing lab draws at this time -Maintain and replete electrolytes as needed -TSH level elevated, synthroid resumed Right subcapital hip fracture -Orthopedics consulted and following -POD#1 ORIF Leukocytosis - Etiology: infection vs. stress reaction -Bld clx and urine clx negative -MRSA screen negative -Monitor WBC which continues to downtrend -Procalcitonin low at <0.05 -Continue with treatment with antibiotics Hypertension -Monitor vitals -Metoprolol tartrate 25 PO BID Hypothyroidism -Continue Synthroid NIDDM -ISS-Low -Cont with accuchecks qACHS DVT/GI ppx - Heparin - Protionix Case and plan discussed with attending <Rigoberto Barajas - Last Filed: 07/29/17 11:30> Objective - Vital Signs/Intake and Output Vital Signs (last 24 hours): Temp Pulse Resp BP Pulse Ox 99.8 F H 78 20 127/63 97 07/29/17 05:31 07/29/17 09:43 07/29/17 05:31 07/29/17 09:43 07/29/17 05:31 Intake and Output: 07/29/17 07/29/17 06:59 18:59 Intake Total 240 Output Total 400 Balance -160 - Medications Medications: Current Medications Acetaminophen (Tylenol 325mg Tab) 650 mg PO Q4H PRN PRN Reason: Fever >100.4 F Last Admin: 07/28/17 18:01 Dose: 650 mg Heparin Sodium (Porcine) (Heparin) 5,000 units SC Q12 [facility] PRN Reason: Protocol Last Admin: 07/29/17 09:44 Dose: 5,000 units Insulin Human Regular (Humulin R Low) 0 units SC ACHS [facility] PRN Reason: Protocol Last Admin: 07/29/17 08:38 Dose: Not Given Levothyroxine Sodium (Synthroid) 25 mcg PO 0600 [facility] Last Admin: 07/29/17 06:37 Dose: 25 mcg Metoclopramide HCl (Reglan) 10 mg IV ONCE PRN PRN Reason: Nausea/Vomiting Metoprolol Tartrate (Lopressor) 25 mg PEG BID [facility] Last Admin: 07/29/17 09:43 Dose: 25 mg Morphine Sulfate (Morphine) 1 mg IVP Q6H PRN PRN Reason: Pain, moderate (4-7) Last Admin: 07/28/17 21:18 Dose: 1 mg Vitamin A (Vitamin A & D Oint Ud Foilpak) 1 ea TOP BID PRN PRN Reason: Excoriation Last Admin: 07/28/17 04:09 Dose: 1 ea - Labs Labs: 07/27/17 17:50 07/27/17 05:40 Attending/Attestation - Attestation I have personally seen and examined this patient.: Yes I have fully participated in the care of the patient.: Yes I have reviewed all pertinent clinical information, including history, physical exam and plan: Yes Notes (Text): 07/29/17 11:29 Medical record note made by the resident after discussion with my direction and input after the patient was personally seen and examined by me. I have reviewed the chart and agree that the record accurately reflects by personal performance of the history, physical exam, data review, and medical decision-making, in the course for the patient. I have also personally directed the plan of care. 67 year old female with past medical history of hypertension, hypothyroidism, hyponatremia and chronic odynophagia who presented s/p fall at home. Patient has right displaced subcapital fracture of right hip, POD#1 from ORIF of right hip. Patient is refusing blood work, was discussed in detail with her. Patient is asymptomatic. Prognosis is guarded.
--- NOTE | 2017-07-28 12:22 | PN ---
DATE: 07/28/2017 FIRST DAY POSTOP REPORT. LOCATION: In room 128, bed 2. SUBJECTIVE: A 67-year-old female who underwent a right hip bipolar procedure for her displaced subcapital fracture. She is presently in room 128, bed 7. She is doing well and much less pain. Her neurovascular status, wound is dry. We will plan on getting her up out of bed and following her H and H. Once she is out of the ICU, she can start ambulating when she is on the regular floor. We will start some therapy today to get her up out of bed, limit ambulation till she is medically more sound. Harsha Yu DO
--- NOTE | 2017-07-28 13:48 | PN ---
DATE: 07/28/2017 REASON FOR CONSULTATION AND FOLLOWUP: Preop evaluation, risk stratification for hip surgery status post fall, multiple electrolytes abnormality, hypokalemia, hyponatremia, status post OR internal fixation. SUBJECTIVE: The patient denies any chest pain, but complain of throat pain and difficulty in swallowing. OBJECTIVE: GENERAL: Not in distress, lying flat in the bed. VITAL SIGNS: As follows: Temperature afebrile, heart rate 76, blood pressure 130/64. HEENT: PERRLA. Extraocular muscles intact. NECK: Supple. No carotid bruit or thyromegaly. CHEST: Clear to auscultation. HEART: S1 and S2, regular. ABDOMEN: Soft. EXTREMITIES: Clubbing and cyanosis negative. LABORATORY DATA: Blood workup as follows: WBC , hemoglobin 8.6, hematocrit 26.2, platelet count 305. Chemistry shows sodium 130, potassium 3.9, chloride 91, carbon dioxide 29, anion gap of 14. BUN 10, creatinine 0.5. IMPRESSION: Status post fall, status post OR internal fixation, status post right hip OR internal fixation, multiple electrolytes abnormality, chronic odynophagia, status post percutaneous endoscopic gastrostomy placement. RECOMMENDATIONS: The patient started eating as per nurse. We will discontinue free fluid, continue beta aki, continue feeding, encourage feeding, will leave IV fluid as per Nephrology Dr. Zuniga. Suggest to decrease IV fluid, but leave it as per chuck wagon cook. Repeat the lab in the morning. We will follow with you. The patient's last echocardiogram on 05/28/2017 shows ejection fraction preserved, mild aortic sclerosis with aortic stenosis, mild aortic regurgitation, mild mitral regurgitation, trace tricuspid regurgitation, RV systolic pressure 24, calculated ejection fraction of 60%. Thank you Dr. Ibrahim for providing us the opportunity in taking care of the patient, Rylie Pierre. Rigoberto Garg MD
--- NOTE | 2017-07-28 15:06 | CP.PCM.PN ---
Subjective - Date & Time of Evaluation Date of Evaluation: 07/28/17 Time of Evaluation: 10:00 - Subjective Subjective: Patient refusing labs; still complaining of throat discomfort but tolerating PO diet; Objective - Vital Signs/Intake and Output Vital Signs (last 24 hours): Temp Pulse Resp BP Pulse Ox 99.5 F 75 18 109/80 100 07/28/17 12:00 07/28/17 12:00 07/28/17 12:00 07/28/17 12:00 07/28/17 12:00 Intake and Output: 07/28/17 07/28/17 06:59 18:59 Intake Total 1250 Output Total 225 Balance 1025 - Medications Medications: Current Medications Heparin Sodium (Porcine) (Heparin) 5,000 units SC Q12 [facility] PRN Reason: Protocol Last Admin: 07/28/17 10:21 Dose: 5,000 units Insulin Human Regular (Humulin R Low) 0 units SC ACHS [facility] PRN Reason: Protocol Last Admin: 07/28/17 11:32 Dose: 1 units Levothyroxine Sodium (Synthroid) 25 mcg PO 0600 [facility] Last Admin: 07/28/17 05:41 Dose: 25 mcg Metoclopramide HCl (Reglan) 10 mg IV ONCE PRN PRN Reason: Nausea/Vomiting Metoprolol Tartrate (Lopressor) 25 mg PEG BID [facility] Last Admin: 07/28/17 10:21 Dose: 25 mg Morphine Sulfate (Morphine) 1 mg IVP Q6H PRN PRN Reason: Pain, moderate (4-7) Last Admin: 07/28/17 03:30 Dose: 1 mg Vitamin A (Vitamin A & D Oint Ud Foilpak) 1 ea TOP BID PRN PRN Reason: Excoriation Last Admin: 07/28/17 04:09 Dose: 1 ea - Labs Labs: 07/27/17 17:50 07/27/17 05:40 - Constitutional Appears: Non-toxic, No Acute Distress - Eye Exam Eye Exam: absent: Scleral icterus - ENT Exam ENT Exam: Mucous Membranes Moist - Respiratory Exam Respiratory Exam: Clear to Ausculation Bilateral. absent: Respiratory Distress - Cardiovascular Exam Cardiovascular Exam: RRR, +S1, +S2 - GI/Abdominal Exam GI & Abdominal Exam: Soft. absent: Distended, Tenderness - Extremities Exam Additional comments: no leg edema; - Neurological Exam Neurological Exam: Alert, Awake - Psychiatric Exam Psychiatric exam: absent: Agitated - Skin Skin Exam: Warm. absent: Cyanosis Assessment and Plan (1) Hyponatremia Assessment & Plan: Had improved and stabilized per labs yesterday but concern for persistent impetus for hyponatremia with high urine osm; need repeat labs; holding IVF for now; Status: Acute (2) Hypokalemia Status: Resolved
[2017-07-29] MEDS: Levothyroxine 25 MCG TAB PO SCH (06:37)
[2017-07-29] MEDS: Insulin Reg-LOW-Coverage SC SCH ×4 (08:38→21:47)
--- NOTE | 2017-07-29 09:59 | PN ---
DATE: 07/29/2017 TWO DAY POSTOP REPORT LOCATION: Room 267, bed 1. SUBJECTIVE: She underwent bipolar hip prosthesis on 07/27/2017 for displaced subcapital fracture, right hip and she is refusing blood work, refusing therapy, but we will try to get her up out of bed and mobilize her. We will try to insist on getting her postop CBC and electrolytes. Otherwise, she is doing well. The wound is dry. Harsha Yu DO
[2017-07-29 12:23] LABS: URINE APPEARANCE CLEAR (CLEAR); URINE BILIRUBIN NEGATIVE (NEGATIVE); URINE BLOOD SMALL (NEGATIVE); URINE COLOR LIGHT YELLOW (YELLOW); URINE GLUCOSE (UA) 250 mg/dL (NEGATIVE); URINE LEUKOCYTE ESTERASE NEGATIVE Leu/uL (NEGATIVE); URINE PROTEIN 30 mg/dL (<30 mg/dL); URINE UROBILINOGEN 0.2 E.U./dL (<1 E.U./dL)
[2017-07-29 12:30] LABS: URINE BACTERIA MOD (NEG); URINE HYALINE CAST 0 - 2 /hpf; URINE RBC NEGATIVE /hpf (0-2); URINE WBC 0 - 2 /hpf (0-6)
[2017-07-29 13:00] LABS: OSMOLALITY,URINE 607 mosm/kg (300-1000)
--- NOTE | 2017-07-29 14:21 | CP.PCM.PN ---
<Manuel Cid - Last Filed: 07/29/17 14:18> Subjective - Date & Time of Evaluation Date of Evaluation: 07/29/17 Time of Evaluation: 14:18 - Subjective Subjective: Patient seen and evaluated this AM. No acute events reported overnight. Patient refusing labs at this time and without much of an appetite. Indicates pain associated with throat and right lower extremity. Denies chest pain, shortness of breath, nausea, vomiting, fever, chills. Objective - Vital Signs/Intake and Output Vital Signs (last 24 hours): Temp Pulse Resp BP Pulse Ox 97.8 F 75 18 121/52 L 97 07/29/17 12:00 07/29/17 12:00 07/29/17 12:00 07/29/17 12:00 07/29/17 05:31 Intake and Output: 07/29/17 07/29/17 06:59 18:59 Intake Total 240 Output Total 400 Balance -160 - Medications Medications: Current Medications Acetaminophen (Tylenol 325mg Tab) 650 mg PO Q4H PRN PRN Reason: Fever >100.4 F Last Admin: 07/28/17 18:01 Dose: 650 mg Heparin Sodium (Porcine) (Heparin) 5,000 units SC Q12 [facility] PRN Reason: Protocol Last Admin: 07/29/17 09:44 Dose: 5,000 units Insulin Human Regular (Humulin R Low) 0 units SC ACHS [facility] PRN Reason: Protocol Last Admin: 07/29/17 12:47 Dose: 2 units Levothyroxine Sodium (Synthroid) 25 mcg PO 0600 [facility] Last Admin: 07/29/17 06:37 Dose: 25 mcg Metoclopramide HCl (Reglan) 10 mg IV ONCE PRN PRN Reason: Nausea/Vomiting Metoprolol Tartrate (Lopressor) 25 mg PEG BID [facility] Last Admin: 07/29/17 09:43 Dose: 25 mg Morphine Sulfate (Morphine) 1 mg IVP Q6H PRN PRN Reason: Pain, moderate (4-7) Last Admin: 07/28/17 21:18 Dose: 1 mg Vitamin A (Vitamin A & D Oint Ud Foilpak) 1 ea TOP BID PRN PRN Reason: Excoriation Last Admin: 07/28/17 04:09 Dose: 1 ea - Labs Labs: 07/27/17 17:50 07/27/17 05:40 - Constitutional Appears: No Acute Distress - Head Exam Head Exam: ATRAUMATIC, NORMAL INSPECTION, NORMOCEPHALIC - Eye Exam Eye Exam: EOMI, PERRL - ENT Exam ENT Exam: Mucous Membranes Moist - Respiratory Exam Respiratory Exam: Clear to Ausculation Bilateral, NORMAL BREATHING PATTERN. absent: Rhonchi, Wheezes - Cardiovascular Exam Cardiovascular Exam: REGULAR RHYTHM, +S1, +S2 - GI/Abdominal Exam GI & Abdominal Exam: Soft, Normal Bowel Sounds. absent: Guarding, Rigid, Tenderness - Neurological Exam Neurological Exam: Alert, Awake, Oriented x3 Additional comments: Right lower extremity immobilized Motor and sensory grossly intact - Psychiatric Exam Psychiatric exam: Anxious - Skin Skin Exam: Dry, Warm Assessment and Plan - Assessment and Plan (Free Text) Assessment: 67 year old female with past medical history of hypertension, hypothyroidism, hyponatremia and chronic odynophagia who presented s/p fall at home. Patient has right displaced subcapital fracture of right hip, POD#2 from ORIF of right hip. Patient is refusing blood work. Patient is asymptomatic. Plan: Right subcapital hip fracture -Orthopedics consulted and following -POD#2 ORIF - PT evaluation and treatment Hyponatremia -Nephrology consulted and following -Continue to monitor sodium levels, patient refusing lab draws at this time -Maintain and replete electrolytes as needed -TSH level elevated, synthroid resumed Malingering vs. Facticious disorder - Psychiatric consulte, f/u recs - Patient on previous admissions noted to refuse lab draws - Previous psych eval indicate patient refusal for inpatient treatment Leukocytosis-resolved - Etiology: infection vs. stress reaction -Bld clx and urine clx negative -MRSA screen negative -Monitor WBC which continues to downtrend -Procalcitonin low at <0.05 Hypertension -Monitor vitals -Metoprolol tartrate 25 PO BID Hypothyroidism -Continue Synthroid NIDDM -ISS-Low -Cont with accuchecks qACHS DVT/GI ppx - Heparin - Protionix Case and plan discussed with attending <Rigoberto Barajas - Last Filed: 07/29/17 14:30> Objective - Vital Signs/Intake and Output Vital Signs (last 24 hours): Temp Pulse Resp BP Pulse Ox 97.8 F 75 18 121/52 L 97 07/29/17 12:00 07/29/17 12:00 07/29/17 12:00 07/29/17 12:00 07/29/17 05:31 Intake and Output: 07/29/17 07/29/17 06:59 18:59 Intake Total 240 Output Total 400 Balance -160 - Medications Medications: Current Medications Acetaminophen (Tylenol 325mg Tab) 650 mg PO Q4H PRN PRN Reason: Fever >100.4 F Last Admin: 07/28/17 18:01 Dose: 650 mg Heparin Sodium (Porcine) (Heparin) 5,000 units SC Q12 [facility] PRN Reason: Protocol Last Admin: 07/29/17 09:44 Dose: 5,000 units Insulin Human Regular (Humulin R Low) 0 units SC ACHS [facility] PRN Reason: Protocol Last Admin: 07/29/17 12:47 Dose: 2 units Levothyroxine Sodium (Synthroid) 25 mcg PO 0600 [facility] Last Admin: 07/29/17 06:37 Dose: 25 mcg Metoclopramide HCl (Reglan) 10 mg IV ONCE PRN PRN Reason: Nausea/Vomiting Metoprolol Tartrate (Lopressor) 25 mg PEG BID [facility] Last Admin: 07/29/17 09:43 Dose: 25 mg Morphine Sulfate (Morphine) 1 mg IVP Q6H PRN PRN Reason: Pain, moderate (4-7) Last Admin: 07/28/17 21:18 Dose: 1 mg Vitamin A (Vitamin A & D Oint Ud Foilpak) 1 ea TOP BID PRN PRN Reason: Excoriation Last Admin: 07/28/17 04:09 Dose: 1 ea - Labs Labs: 07/27/17 17:50 07/27/17 05:40 Attending/Attestation - Attestation I have personally seen and examined this patient.: Yes I have fully participated in the care of the patient.: Yes I have reviewed all pertinent clinical information, including history, physical exam and plan: Yes Notes (Text): 07/29/17 14:27 Medical record note made by the resident after discussion with my direction and input after the patient was personally seen and examined by me. I have reviewed the chart and agree that the record accurately reflects by personal performance of the history, physical exam, data review, and medical decision-making, in the course for the patient. I have also personally directed the plan of care. 67 year old female with past medical history of hypertension, hypothyroidism, hyponatremia and chronic odynophagia was admitted with H/O fall at home, found to have right displaced subcapital fracture of right hip and hyponatremia.Patient is POD#2 ORIF of right hip.Hyponatremia was at [place] 2 days back , since then Patient is refusing blood work, was discussed in detail with her.Patient is asymptomatic.We will get Psychiatric evaluation. Low grade fever has resolved. Patient will eventually need to go to [facility] for rehabilitation Prognosis is guarded. 07/29/17 14:30
[2017-07-30] MEDS: Morphine 2 mg/2 mL syringe IVP PRN ×2 (04:09→10:37)
--- NOTE | 2017-07-30 06:02 | CP.PCM.PN ---
<Ousmane Mar - Last Filed: 07/30/17 11:17> Subjective - Date & Time of Evaluation Date of Evaluation: 07/30/17 Time of Evaluation: 05:30 - Subjective Subjective: Patient seen and examined at bedside. Was complaining of pain, nurse gave scheduled morphine. Patient refusing to cooperate not talking much, also refusing labs over weekend and physical therapy. Will try convince patient later when she's in a better mood. ROS not obtained due to lack of cooperation. Objective - Vital Signs/Intake and Output Vital Signs (last 24 hours): Temp Pulse Resp BP Pulse Ox 98.9 F 77 18 127/60 97 07/29/17 19:30 07/30/17 05:35 07/29/17 12:00 07/29/17 17:56 07/29/17 05:31 Intake and Output: 07/29/17 07/30/17 18:59 06:59 Intake Total 900 Output Total 400 Balance 500 - Medications Medications: Current Medications Acetaminophen (Tylenol 325mg Tab) 650 mg PO Q4H PRN PRN Reason: Fever >100.4 F Last Admin: 07/29/17 17:55 Dose: 650 mg Heparin Sodium (Porcine) (Heparin) 5,000 units SC Q12 [facility] PRN Reason: Protocol Last Admin: 07/29/17 21:49 Dose: 5,000 units Insulin Human Regular (Humulin R Low) 0 units SC ACHS [facility] PRN Reason: Protocol Last Admin: 07/29/17 21:47 Dose: Not Given Levothyroxine Sodium (Synthroid) 25 mcg PO 0600 [facility] Last Admin: 07/29/17 06:37 Dose: 25 mcg Metoclopramide HCl (Reglan) 10 mg IV ONCE PRN PRN Reason: Nausea/Vomiting Metoprolol Tartrate (Lopressor) 25 mg PEG BID [facility] Last Admin: 07/29/17 17:56 Dose: 25 mg Morphine Sulfate (Morphine) 1 mg IVP Q6H PRN PRN Reason: Pain, moderate (4-7) Last Admin: 07/30/17 04:09 Dose: 1 mg Vitamin A (Vitamin A & D Oint Ud Foilpak) 1 ea TOP BID PRN PRN Reason: Excoriation Last Admin: 07/28/17 04:09 Dose: 1 ea - Labs Labs: 07/27/17 17:50 07/27/17 05:40 - Head Exam Head Exam: ATRAUMATIC, NORMAL INSPECTION, NORMOCEPHALIC - Eye Exam Eye Exam: Normal appearance - ENT Exam ENT Exam: Mucous Membranes Moist - Respiratory Exam Respiratory Exam: Clear to Ausculation Bilateral. absent: Rhonchi, Wheezes - Cardiovascular Exam Cardiovascular Exam: REGULAR RHYTHM, +S1, +S2 - GI/Abdominal Exam GI & Abdominal Exam: Soft, Normal Bowel Sounds - Neurological Exam Neurological Exam: Alert, Awake - Skin Skin Exam: Normal Color, Warm (no drainage at wound site) Assessment and Plan - Assessment and Plan (Free Text) Assessment: 67 year old female with past medical history of hypertension, hypothyroidism, hyponatremia and chronic odynophagia who presented s/p fall at home. Patient has right displaced subcapital fracture of right hip, POD#3 from bipolar hip prosthesis of right hip. Plan: Right subcapital hip fracture -Orthopedics consulted and following -POD#3 bipolar right hip prosthesis -PT evaluation and treatment; patient refusing PT; discussed with pt importance of PT or she won't be able to walk. Will attempt with PT again tomorrow after transfused 2 units. Anemia -Hgb 6.8, type and screened, will receive 2 units of PRBCs -F/U with repeat CBC Hyponatremia -Nephrology consulted and following -Continue to monitor sodium levels, currently stable at 131 -Maintain and replete electrolytes as needed -TSH level elevated, synthroid resumed Malingering vs. Facticious disorder - Psychiatric consulted, f/u recs - Previous psych eval indicate patient refusal for inpatient treatment Leukocytosis-resolved -Etiology: infection vs. stress reaction -Bld clx and urine clx negative -MRSA screen negative -Monitor WBC which continues to downtrend -Procalcitonin low at <0.05 Hypertension -Monitor vitals -Metoprolol tartrate 25 PO BID Hypothyroidism -Continue Synthroid NIDDM -ISS-Low -Cont with accuchecks qACHS DVT/GI ppx - Heparin - Protionix <Rigoberto Barajas - Last Filed: 07/30/17 15:35> Objective - Vital Signs/Intake and Output Vital Signs (last 24 hours): Temp Pulse Resp BP Pulse Ox 98 F 77 18 135/74 100 07/30/17 15:08 07/30/17 15:08 07/30/17 15:08 07/30/17 15:08 07/30/17 06:25 Intake and Output: 07/30/17 07/30/17 06:59 18:59 Intake Total 600 0 Output Total 400 Balance 200 0 - Medications Medications: Current Medications Acetaminophen (Tylenol 325mg Tab) 650 mg PO Q4H PRN PRN Reason: Fever >100.4 F Last Admin: 07/29/17 17:55 Dose: 650 mg Heparin Sodium (Porcine) (Heparin) 5,000 units SC Q12 [facility] PRN Reason: Protocol Last Admin: 07/30/17 09:52 Dose: Not Given Insulin Human Regular (Humulin R Low) 0 units SC ACHS [facility] PRN Reason: Protocol Last Admin: 07/30/17 12:46 Dose: 1 units Levothyroxine Sodium (Synthroid) 25 mcg PO 0600 [facility] Last Admin: 07/30/17 08:41 Dose: 25 mcg Metoprolol Tartrate (Lopressor) 25 mg PEG BID [facility] Last Admin: 07/30/17 09:51 Dose: 25 mg Morphine Sulfate (Morphine) 1 mg IVP Q6H PRN PRN Reason: Pain, moderate (4-7) Last Admin: 07/30/17 10:37 Dose: 1 mg Vitamin A (Vitamin A & D Oint Ud Foilpak) 1 ea TOP BID PRN PRN Reason: Excoriation Last Admin: 07/28/17 04:09 Dose: 1 ea - Labs Labs: 07/30/17 06:30 07/30/17 06:30 Attending/Attestation - Attestation I have personally seen and examined this patient.: Yes I have fully participated in the care of the patient.: Yes I have reviewed all pertinent clinical information, including history, physical exam and plan: Yes Notes (Text): 07/30/17 15:33 Medical record note made by the resident after discussion with my direction and input after the patient was personally seen and examined by me. I have reviewed the chart and agree that the record accurately reflects by personal performance of the history, physical exam, data review, and medical decision-making, in the course for the patient. I have also personally directed the plan of care. 67 year old female with past medical history of hypertension, hypothyroidism, hyponatremia and chronic odynophagia was admitted with H/O fall at home, found to have right displaced subcapital fracture of right hip and hyponatremia.Patient is POD#3 ORIF of right hip.Hemoglobin has dropped post operatively from 8.6 to 6.8.We will transfuse 2 units of PRBC.Patient denies any headache, dizziness, chest pain or palpitation. Hyponatremia was at base line 2 days back ,.Patient is asymptomatic.. Patient will eventually need to go to [facility] for rehabilitation Prognosis is guarded.
[2017-07-30 07:13] LABS: BASO # 0.02 K/mm3 (0.0-2.0); BASO % 0.2 % (0.0-3.0); EOS # 0.1 (0.0-0.7); EOS % 0.6 % (1.5-5.0); GRAN # 6.25 (1.4-6.5); GRAN % 75.1 % (50.0-68.0); LYMPH # 1.1 (1.2-3.4); LYMPH % 12.6 % (22.0-35.0); MEAN CELL VOLUME 81.3 fl (80.0-105.0); MEAN CORPUSCULAR HEMOGLOBIN 26.6 pg (25.0-35.0); MEAN CORPUSCULAR HGB CONC 32.7 g/dl (31.0-37.0); MEAN PLATELET VOLUME 8.9 fl (7.0-11.0); MONO % 11.5 % (1.0-6.0); RBC 2.56 10^6/uL (3.5-6.1); RED CELL DISTRIBUTION WIDTH 15.5 % (11.5-14.5); WHITE BLOOD COUNT 8.3 10^3/ul (4.5-11.0)
[2017-07-30 07:30] LABS: HEMOGLOBIN 6.8 g/dL (12.0-16.0)
[2017-07-30 07:52] LABS: ALB/GLOB RATIO 0.9 (1.1-1.8); ALBUMIN 2.8 g/dL (3.0-4.8); ALT/SGPT 31 U/L (7-56); AST/SGOT 34 U/L (14-36); BLOOD UREA NITROGEN 14 mg/dL (7-21); CALCIUM 8.2 mg/dL (8.4-10.5); GFR AFRICAN-AMERICAN > 60; GFR NON-AFRICAN AMERICAN > 60
[2017-07-30] MEDS: Insulin Reg-LOW-Coverage SC SCH ×4 (08:04→22:44)
[2017-07-30] MEDS: Levothyroxine 25 MCG TAB PO SCH (08:41)
--- NOTE | 2017-07-30 09:01 | PN ---
DATE: 07/29/2017 REASON FOR THE CONSULTATION AND FOLLOWUP: Preop evaluation, postop followup for hip surgery. SUBJECTIVE: The patient denies any chest pain, shortness of breath or any palpitation. Refuses to take Glucerna through the PEG because her sugar was going up, started eating. OBJECTIVE: GENERAL: Not in any apparent distress. VITAL SIGNS: As follow: Temperature is 99.8, heart rate 78, blood pressure 127/63. HEENT: PERRLA. Extraocular muscles intact. NECK: Supple. No carotid bruits or thyromegaly. CHEST: Clear to auscultation. HEART: S1 and S2 regular. ABDOMEN: Soft. EXTREMITIES: Clubbing and cyanosis negative. LABORATORY DATA: Blood workup as follows: WBC 10.9, hemoglobin 8.6, hematocrit 26.2, platelet count 305. Chemistry shows sodium 130, potassium 3.9, chloride 91, carbon dioxide 29, anion gap of 14, BUN 10, creatinine 0.5. IMPRESSION: Hyponatremia, resolving; status post fall; status post ; hyperglycemia; swallowing difficulty, status post percutaneous esophageal gastrostomy placement in the past. RECOMMENDATIONS: Encourage feeding. Consider to decrease IV fluid, but leave up to foot orthopedist. Repeat lab in the morning. Monitor electrolytes and monitor sugar closely and supplement as needed with insulin. Last echo showed preserved LV function dated 05/28/2017, mild aortic sclerosis versus mild aortic stenosis, mild aortic regurgitation, mild mitral regurgitation, trace tricuspid regurgitation with RV systolic pressure 24, ejection fraction 60%. We will repeat the lab in the morning. Consider free fluid through the PEG and discontinue IV fluids, but I will leave that up to Dr. Zuniga, foot orthopedist, following the fluid requirements. Rigoberto Garg MD
[2017-07-30] MEDS ORDERED: Insulin Reg-LOW-Coverage SC SCH (11:30)
--- NOTE | 2017-07-30 14:50 | PN ---
DATE: 07/30/2017 REASON FOR THE CONSULTATION AND FOLLOWUP: Preop evaluation, postop followup for hip surgery, anemia, dropped hemoglobin. SUBJECTIVE: The patient denies any chest pain, shortness of breath or any palpitation. Complain of mild difficulty swallowing, but still eating, feels okay. Mild pain at operative site. PHYSICAL EXAMINATION VITAL SIGNS: As follows: Temperature afebrile, heart rate 77, blood pressure 132/63. HEENT: PERRLA. Extraocular muscles intact. NECK: Supple. No carotid bruits or thyromegaly. CHEST: Clear to auscultation. HEART: S1 and S2 regular. ABDOMEN: Soft. EXTREMITIES: Clubbing and cyanosis negative. LABORATORY DATA: Blood workup as follows: WBC 8.3, hemoglobin 6.8, hematocrit 20.8, platelet count 343. Chemistry shows sodium 133, potassium , chloride 94, carbon dioxide 31, anion gap of 10, BUN 14, creatinine 0.5. Total protein , albumin 2.8, albumin-globulin ratio 0.9 IMPRESSION: Protein-calorie malnutrition, was not present on admission; anemia, postop; odynophagia; swallowing difficulties; status post fall; fractured hip, status post OR internal fixation; hyponatremia; improved; status post PEG placement in the past because of difficulty swallowing. RECOMMENDATION: Encourage feeding. Give 2 units of packed RBC because of hemoglobin 6.8 and 40 of Lasix in between the 2 packed RBC transfusion. Monitor electrolytes closely and monitor sugar, increase nutritional support. We will put some insulin coverage, low dose, and give 40 of Lasix in between 2 packed RBC transfusion. Discussed with the patient. Discussed with Dr. Yu. Continue deep venous thrombosis prophylaxis. Continue low-dose of Synthroid for hypothyroidism. We will follow with you. We will repeat CBC in the morning and will repeat TSH as well and magnesium and phosphate. Possible discharge planning. Thank you, Dr. Yu for providing us the opportunity in taking care of the patient, Rylie Pierre. Rigoberto Garg MD
--- NOTE | 2017-07-30 17:41 | CP.PCM.PN ---
Subjective - Date & Time of Evaluation Date of Evaluation: 07/30/17 Time of Evaluation: 11:00 - Subjective Subjective: Patient reportedly eating very well, consuming all her pureed diet; still complaining of throat discomfort; Objective - Vital Signs/Intake and Output Vital Signs (last 24 hours): Temp Pulse Resp BP Pulse Ox 98.2 F 78 18 143/71 100 07/30/17 15:53 07/30/17 15:53 07/30/17 15:53 07/30/17 15:53 07/30/17 06:25 Intake and Output: 07/30/17 07/30/17 06:59 18:59 Intake Total 600 0 Output Total 400 Balance 200 0 - Medications Medications: Current Medications Acetaminophen (Tylenol 325mg Tab) 650 mg PO Q4H PRN PRN Reason: Fever >100.4 F Last Admin: 07/29/17 17:55 Dose: 650 mg Heparin Sodium (Porcine) (Heparin) 5,000 units SC Q12 [facility] PRN Reason: Protocol Last Admin: 07/30/17 09:52 Dose: Not Given Insulin Human Regular (Humulin R Low) 0 units SC ACHS [facility] PRN Reason: Protocol Last Admin: 07/30/17 12:46 Dose: 1 units Levothyroxine Sodium (Synthroid) 25 mcg PO 0600 [facility] Last Admin: 07/30/17 08:41 Dose: 25 mcg Metoprolol Tartrate (Lopressor) 25 mg PEG BID [facility] Last Admin: 07/30/17 09:51 Dose: 25 mg Morphine Sulfate (Morphine) 1 mg IVP Q6H PRN PRN Reason: Pain, moderate (4-7) Last Admin: 07/30/17 10:37 Dose: 1 mg Vitamin A (Vitamin A & D Oint Ud Foilpak) 1 ea TOP BID PRN PRN Reason: Excoriation Last Admin: 07/28/17 04:09 Dose: 1 ea - Labs Labs: 07/30/17 06:30 07/30/17 06:30 - Constitutional Appears: Non-toxic, No Acute Distress, Cachectic - Eye Exam Eye Exam: Normal appearance - ENT Exam ENT Exam: Mucous Membranes Moist - Respiratory Exam Respiratory Exam: Clear to Ausculation Bilateral. absent: Respiratory Distress - Cardiovascular Exam Cardiovascular Exam: RRR, +S1, +S2 - GI/Abdominal Exam GI & Abdominal Exam: Soft. absent: Distended, Tenderness - Extremities Exam Additional comments: no leg edema; - Neurological Exam Neurological Exam: Alert, Awake - Psychiatric Exam Psychiatric exam: absent: Agitated - Skin Skin Exam: Warm. absent: Cyanosis Assessment and Plan (1) Hyponatremia Assessment & Plan: Improved and stable, although serum Na still mildly low and high urine osm indicates that hyponatremia will persist; prbc transfusion will help correct any volume deficit that may be contributing to hyponatremia; lasix will also help maintain sodium level; -1500 cc PO fluid restriction Status: Acute (2) Anemia Assessment & Plan: Received prbc transfusion, see above; Status: Acute
[2017-07-31 02:44] LABS: BASO # 0.03 K/mm3 (0.0-2.0); BASO % 0.4 % (0.0-3.0); EOS % 0.5 % (1.5-5.0); GRAN # 5.31 (1.4-6.5); LYMPH % 14.1 % (22.0-35.0); MEAN CORPUSCULAR HEMOGLOBIN 27.5 pg (25.0-35.0); MEAN CORPUSCULAR HGB CONC 33.9 g/dl (31.0-37.0); MEAN PLATELET VOLUME 8.6 fl (7.0-11.0); MONO # 0.9 (0.1-0.6); RBC 3.57 10^6/uL (3.5-6.1); RED CELL DISTRIBUTION WIDTH 14.9 % (11.5-14.5); WHITE BLOOD COUNT 7.3 10^3/ul (4.5-11.0)
[2017-07-31 02:53] LABS: HEMOGLOBIN 9.8 g/dL (12.0-16.0)
[2017-07-31] MEDS: Levothyroxine 25 MCG TAB PO SCH (05:46)
[2017-07-31 06:19] LABS: BASO # 0.02 K/mm3 (0.0-2.0); BASO % 0.3 % (0.0-3.0); EOS % 0.3 % (1.5-5.0); GRAN # 5.6 (1.4-6.5); GRAN % 75.4 % (50.0-68.0); HEMOGLOBIN 9.3 g/dL (12.0-16.0); MEAN CELL VOLUME 81.2 fl (80.0-105.0); MEAN CORPUSCULAR HEMOGLOBIN 27.4 pg (25.0-35.0); MEAN CORPUSCULAR HGB CONC 33.7 g/dl (31.0-37.0); MEAN PLATELET VOLUME 8.8 fl (7.0-11.0); MONO # 0.7 (0.1-0.6); RBC 3.4 10^6/uL (3.5-6.1); WHITE BLOOD COUNT 7.4 10^3/ul (4.5-11.0)
--- NOTE | 2017-07-31 06:20 | CP.PCM.PN ---
Subjective - Date & Time of Evaluation Date of Evaluation: 07/31/17 Time of Evaluation: 06:20 - Subjective Subjective: Patient seen and examined at bedside. As per overnight nurse patient did well. Patient states she just needs something for her nose, due to it being dry. Denies chest pain, shortness of breath, palpitations, nausea, vomiting, diarrhea , fevers, chills, headache, cough. Objective - Vital Signs/Intake and Output Vital Signs (last 24 hours): Temp Pulse Resp BP Pulse Ox 9.9 F L 69 20 127/69 100 07/31/17 00:15 07/31/17 02:00 07/31/17 00:15 07/31/17 00:15 07/30/17 23:55 Intake and Output: 07/30/17 07/31/17 18:59 06:59 Intake Total 327 652 Output Total 600 Balance 327 52 - Medications Medications: Current Medications Acetaminophen (Tylenol 325mg Tab) 650 mg PO Q4H PRN PRN Reason: Fever >100.4 F Last Admin: 07/29/17 17:55 Dose: 650 mg Furosemide (Lasix) 20 mg PO Q48H [facility] Heparin Sodium (Porcine) (Heparin) 5,000 units SC Q12 [facility] PRN Reason: Protocol Last Admin: 07/30/17 22:44 Dose: 5,000 units Insulin Human Regular (Humulin R Low) 0 units SC ACHS [facility] PRN Reason: Protocol Last Admin: 07/30/17 22:44 Dose: Not Given Levothyroxine Sodium (Synthroid) 25 mcg PO 0600 [facility] Last Admin: 07/31/17 05:46 Dose: 25 mcg Metoprolol Tartrate (Lopressor) 25 mg PEG BID [facility] Last Admin: 07/30/17 18:45 Dose: 25 mg Morphine Sulfate (Morphine) 1 mg IVP Q6H PRN PRN Reason: Pain, moderate (4-7) Last Admin: 07/30/17 10:37 Dose: 1 mg Sodium Chloride (Sodium Chloride Tab) 2 gm PO Q8H [facility] Last Admin: 07/31/17 05:56 Dose: 2 gm Vitamin A (Vitamin A & D Oint Ud Foilpak) 1 ea TOP BID PRN PRN Reason: Excoriation Last Admin: 07/28/17 04:09 Dose: 1 ea - Labs Labs: 07/31/17 02:25 07/30/17 06:30 - Head Exam Head Exam: ATRAUMATIC, NORMAL INSPECTION, NORMOCEPHALIC - Eye Exam Eye Exam: EOMI, Normal appearance - ENT Exam ENT Exam: Mucous Membranes Moist - Respiratory Exam Respiratory Exam: Clear to Ausculation Bilateral, NORMAL BREATHING PATTERN - Cardiovascular Exam Cardiovascular Exam: REGULAR RHYTHM, +S1, +S2 - GI/Abdominal Exam GI & Abdominal Exam: Soft, Normal Bowel Sounds Additional comments: Peg tube in place - Extremities Exam Extremities Exam: absent: Normal Inspection (no drainage from wound site) - Neurological Exam Neurological Exam: Alert, Awake, Oriented x3 - Psychiatric Exam Psychiatric exam: Normal Affect, Normal Mood - Skin Skin Exam: Normal Color, Warm Assessment and Plan - Assessment and Plan (Free Text) Assessment: 67 year old female with past medical history of hypertension, hypothyroidism, hyponatremia and chronic odynophagia who presented s/p fall at home. Patient has right displaced subcapital fracture of right hip, POD#3 from bipolar hip prosthesis of right hip. 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 stress reaction -Bld clx and urine clx negative -MRSA screen negative -Monitor WBC which continues to downtrend -Procalcitonin low at <0.05 Hypertension -Monitor vitals -Metoprolol tartrate 25 PO BID Hypothyroidism -Continue Synthroid NIDDM -ISS-Low -Cont with accuchecks qACHS DVT/GI ppx - Heparin - Protionix
[2017-07-31] MEDS: Morphine 2 mg/2 mL syringe IVP PRN (07:12)
[2017-07-31 07:14] LABS: BLOOD UREA NITROGEN 14 mg/dL (7-21); CALCIUM 8.2 mg/dL (8.4-10.5); GFR AFRICAN-AMERICAN > 60; GFR NON-AFRICAN AMERICAN > 60
[2017-07-31 07:15] LABS: ALB/GLOB RATIO 0.9 (1.1-1.8); ALT/SGPT 40 U/L (7-56); AST/SGOT 49 U/L (14-36)
[2017-07-31] MEDS: Insulin Reg-LOW-Coverage SC SCH ×2 (08:07→12:04)
[2017-07-31 10:53] VITALS: O2SAT 94
[2017-07-31 13:51] VITALS: TEMP 98.5
--- NOTE | 2017-07-31 15:42 | CP.PCM.DIS ---
Provider - Provider Date of Admission: 07/24/17 10:27 Attending physician: Rigoberto Barajas MD Primary care physician: Ramy Napier MD Hospital Course - Lab Results Lab Results: Micro Results 07/24/17 12:30 Nose MRSA Culture (Admit) - Final MRSA NOT DETECTED Most Recent Lab Values WBC 7.4 10^3/ul (4.5-11.0) 07/31/17 05:30 RBC 3.40 10^6/uL (3.5-6.1) L 07/31/17 05:30 Hgb 9.3 g/dL (12.0-16.0) L 07/31/17 05:30 Hct 27.6 % (36.0-48.0) L 07/31/17 05:30 MCV 81.2 fl (80.0-105.0) 07/31/17 05:30 MCH 27.4 pg (25.0-35.0) 07/31/17 05:30 MCHC 33.7 g/dl (31.0-37.0) 07/31/17 05:30 RDW 15.0 % (11.5-14.5) H 07/31/17 05:30 Plt Count 337 10^3/uL (120.0-450.0) 07/31/17 05:30 MPV 8.8 fl (7.0-11.0) 07/31/17 05:30 Gran % 75.4 % (50.0-68.0) H 07/31/17 05:30 Lymph % (Auto) 14.0 % (22.0-35.0) L 07/31/17 05:30 [place] % (Auto) 10.0 % (1.0-6.0) H 07/31/17 05:30 Eos % (Auto) 0.3 % (1.5-5.0) L 07/31/17 05:30 Baso % (Auto) 0.3 % (0.0-3.0) 07/31/17 05:30 Gran # 5.60 (1.4-6.5) 07/31/17 05:30 Lymph # (Auto) 1.0 (1.2-3.4) L 07/31/17 05:30 [place] # (Auto) 0.7 (0.1-0.6) H 07/31/17 05:30 Eos # (Auto) 0.0 (0.0-0.7) 07/31/17 05:30 Baso # (Auto) 0.02 K/mm3 (0.0-2.0) 07/31/17 05:30 Neutrophils % (Manual) 90 % (50.0-70.0) H 07/24/17 07:45 Band Neutrophils % 1 % (0-2) 07/24/17 07:45 Lymphocytes % (Manual) 5 % (22.0-35.0) L 07/24/17 07:45 Monocytes % (Manual) 4 % (1.0-6.0) 07/24/17 07:45 Platelet Evaluation Normal (NORMAL) 07/24/17 07:45 pCO2 31 mm/Hg (35-45) L 07/24/17 09:30 pO2 36 mm/Hg (30-55) 07/24/17 11:50 HCO3 20.1 mmol/L (21-28) L 07/24/17 09:30 ABG pH 7.42 (7.35-7.45) 07/24/17 09:30 ABG Total CO2 21.1 mmol.L (22-28) L 07/24/17 09:30 ABG O2 Saturation 99.5 % (95-98) H 07/24/17 09:30 ABG Base Excess -3.4 mmol/L (-2.0-3.0) L 07/24/17 09:30 ABG Potassium 2.3 mmol/L (3.6-5.2) L* 07/24/17 09:30 VBG pH 7.31 (7.32-7.43) L 07/24/17 11:50 VBG pCO2 50.0 (40-60) 07/24/17 11:50 VBG HCO3 25.2 mmol/l (21-28) 07/24/17 11:50 VBG Total CO2 26.7 mmol.L (22-28) 07/24/17 11:50 VBG O2 Sat (Calc) 72.6 % (40-65) H 07/24/17 11:50 VBG Base Excess -1.7 mmol/L (0.0-2.0) L 07/24/17 11:50 VBG Potassium 3.7 mmol/L (3.6-5.2) 07/24/17 11:50 Sodium 113.0 mmol/L (132-148) L* 07/24/17 11:50 Chloride 81.0 mmol/L (98-107) L 07/24/17 11:50 Glucose 111 mg/dl (65-105) H 07/24/17 11:50 Lactate 1.7 mmol/L (0.7-2.1) 07/24/17 11:50 FiO2 21.0 % 07/24/17 11:50 Sodium 130 mmol/L (132-148) L 07/31/17 05:30 Potassium 3.8 mmol/L (3.6-5.0) 07/31/17 05:30 Chloride 90 mmol/L (98-107) L 07/31/17 05:30 Carbon Dioxide 32 mmol/L (21-33) 07/31/17 05:30 Anion Gap 12 (10-20) 07/31/17 05:30 BUN 14 mg/dL (7-21) 07/31/17 05:30 Creatinine 0.5 mg/dl (0.7-1.2) L 07/31/17 05:30 Est GFR ( Amer) > 60 07/31/17 05:30 Est GFR (Non-Af Amer) > 60 07/31/17 05:30 POC Glucose (mg/dL) 337 mg/dL (65-110) H 07/31/17 11:49 Random Glucose 138 mg/dL (70-110) H 07/31/17 05:30 Hemoglobin A1c 5.6 % (4.2-6.5) 07/25/17 07:00 Serum Osmolality 229 mosm/kg (272-300) L 07/24/17 08:30 Uric Acid 0.9 mg/dL (2.5-6.2) L 07/24/17 11:30 Calcium 8.2 mg/dL (8.4-10.5) L 07/31/17 05:30 Phosphorus 3.9 mg/dL (2.5-4.5) 07/31/17 05:30 Magnesium 1.5 mg/dL (1.7-2.2) L 07/31/17 05:30 Total Bilirubin 0.6 mg/dL (0.2-1.3) 07/31/17 05:30 AST 49 U/L (14-36) H D 07/31/17 05:30 ALT 40 U/L (7-56) 07/31/17 05:30 Alkaline Phosphatase 80 U/L (38-126) 07/31/17 05:30 Troponin I 0.04 ng/mL D 07/24/17 08:30 Total Protein 6.2 g/dL (5.8-8.3) 07/31/17 05:30 Albumin 3.0 g/dL (3.0-4.8) 07/31/17 05:30 Globulin 3.2 gm/dL 07/31/17 05:30 Albumin/Globulin Ratio 0.9 (1.1-1.8) L 07/31/17 05:30 Triglycerides 63 mg/dL (35-160) 07/25/17 07:00 Cholesterol 207 mg/dL (130-200) H 07/25/17 07:00 LDL Cholesterol Direct 98 mg/dL (0-129) 07/25/17 07:00 HDL Cholesterol 63 mg/dL (29-60) H 07/25/17 07:00 Procalcitonin < 0.05 NG/ML (0.19-0.49) L 07/24/17 09:20 Free T4 1.38 ng/dL (0.78-2.19) 07/25/17 07:00 Free T3 pg/mL 1.84 pg/mL (2.77-5.27) L 07/25/17 11:00 TSH 3rd Generation 3.06 mIU/mL (0.46-4.68) 07/31/17 05:30 Arterial Blood Potassium 2.3 mmol/L (3.6-5.2) L* 07/24/17 09:30 Venous Blood Potassium 3.7 mmol/L (3.6-5.2) 07/24/17 11:50 Urine Color Light yellow (YELLOW) 07/29/17 12:05 Urine Appearance Clear (CLEAR) 07/29/17 12:05 Urine pH 6.0 (4.7-8.0) 07/29/17 12:05 Ur Specific [place] 1.025 (1.005-1.035) 07/29/17 12:05 Urine Protein 30 mg/dL (<30 mg/dL) H 07/29/17 12:05 Urine Glucose (UA) 250 mg/dL (NEGATIVE) H 07/29/17 12:05 Urine Ketones Negative mg/dL (NEGATIVE) 07/29/17 12:05 Urine Blood Small (NEGATIVE) H 07/29/17 12:05 Urine Nitrate Negative (NEGATIVE) 07/29/17 12:05 Urine Bilirubin Negative (NEGATIVE) 07/29/17 12:05 Urine Urobilinogen 0.2 E.U./dL (<1 E.U./dL) 07/29/17 12:05 Ur Leukocyte Esterase Negative [place]/uL (NEGATIVE) 07/29/17 12:05 Urine RBC Negative /hpf (0-2) 07/29/17 12:05 Urine WBC 0 - 2 /hpf (0-6) 07/29/17 12:05 Ur Epithelial Cells 1 - 3 /hpf (0-5) 07/29/17 12:05 Urine Bacteria Mod (NEG) 07/29/17 12:05 Hyaline Casts 0 - 2 /hpf 07/29/17 12:05 Urine Osmolality 607 mosm/kg (300-1000) 07/29/17 12:05 Ur Random Creatinine 12 mg/dL 07/24/17 09:20 Ur Random Sodium 27 meq/L 07/29/17 12:05 Ur Random Urea Nitrogn 195 mg/dL 07/24/17 09:20 Blood Type O POSITIVE 07/30/17 09:35 Blood Type Confirm O POSITIVE 07/27/17 06:00 Antibody Screen Negative 07/30/17 09:35 Crossmatch See Detail 07/30/17 09:35 BBK History Checked Patient has bt 07/30/17 09:35 Discharge Exam - Head Exam Head Exam: ATRAUMATIC, NORMAL INSPECTION, NORMOCEPHALIC Discharge Plan - Discharge Medications Prescriptions: oxyCODONE/Acetaminophen 1/2TAB [Percocet 5-325 mg HALF TAB] 0.5 ea PO Q6H #12 tab - Follow Up Plan Condition: CRITICAL Disposition: HOME/ ROUTINE Referrals: Ramy Napier MD [Primary Care Provider] -
--- NOTE | 2017-07-31 15:51 | PN ---
DATE: 07/31/2017 REASON FOR THE CONSULTATION AND FOLLOWUP: Preop evaluation and postop followup, hip surgery, anemia, status post RBC transfusion. SUBJECTIVE: The patient denies any chest pain, shortness of breath or any palpitation, appears not in apparent distress, lying flat in the bed. PHYSICAL EXAMINATION VITAL SIGNS: As follows: Temperature 97.8, heart rate 67, blood pressure 121/59. HEENT: PERRLA. Extraocular muscles intact. NECK: Supple. No carotid bruits or thyromegaly. CHEST: Clear to auscultation. HEART: S1 and S2 regular. ABDOMEN: Soft. EXTREMITIES: Clubbing and cyanosis negative. LABORATORY DATA: Blood workup as follows: WBC 7.5, hemoglobin 9.7, hematocrit 27.6, platelet count 337. Chemistry shows sodium 130, potassium 3.8, chloride 90, carbon dioxide 32, anion gap of 12, BUN 14, creatinine 0.5. IMPRESSION: Status post hip surgery, anemia, packed RBC transfusion, odynophagia, difficulty in swallowing, status post PEG placement, diabetes. RECOMMENDATION: Continue DVT prophylaxis. Suggest to start low dose of glipizide with finger stick coverage. Discussed with the patient. We will discontinue telemetry. As of medical management, CVA status is stable. The patient needs rehab in the discharge planning. Thank you, Dr. Ibrahim for providing the opportunity in taking care of the patient, Rylie Pierre. Rigoberto Garg MD
[2017-07-31 18:21] VITALS: BP 165/84; PULSE 82; RESP 18
--- NOTE | 2017-07-31 23:35 | CON ---
HISTORY OF PRESENT ILLNESS: In short, the patient is a 67-year-old Belarusian female. The patient has personality disorder. Last admission was on 07/23. The patient came back to the hospital 07/24 for right hip fracture and altered mental status and hypernatremia. Psych consult was called for evaluation of patient's behavior. The patient was refusing to participate in physical therapy. This keno writer / runner is very familiar with this patient from the previous admission on the medical side where the patient refused to leave the hospital and was cleared by medical team, but the patient wanted to stay and had feeling that she had severe problems with as well as swallowing, but the patient was eating well and was not in acute distress. This keno writer / runner attempted to speak to the patient today. The patient presented to be reluctant to talk to this keno writer / runner. The patient said that she does not want to talk to her and she is not crazy. The patient reported that she refused to participate in physical therapy because of the pain. This keno writer / runner attempted to educate the patient if she will not participate in physical therapy, she will not be able to walk again, but the patient was not receptive. Besides that, there is no agitation or aggression and the patient had choice not to participate in physical therapy, but at the same time, the patient appears to be reluctant to participate. The patient has poor education and was not able to comprehend the consequences of being without physical therapy and what will be the outcome, but this keno writer / runner and medical team attempted to speak to the patient and educate on multiple occasions. Collaterals from the nursing staff, the patient is not agitated or aggressive. The patient has good appetite. At times, the patient refused to have medication. Besides that, there is no aggression or agitation. OBJECTIVE: VITAL SIGNS: Stable. Temperature 98.3, pulse is 101, blood pressure 121/59, respirations 16, oxygen saturation is 94%. MEDICATIONS: Reviewed. Tylenol, Lasix, heparin, Humulin, Synthroid, Lopressor, morphine, sodium chloride, and vitamin A. LABORATORY DATA: Reviewed. Hemoglobin and hematocrit 9.3 and 27.6. Blood gas reviewed. Chemistry reviewed. Sodium 130, chloride is 90. Urinalysis, blood small. Discussed with attending, Dr. Barajas. The patient had right subcapital hip fracture. The patient today postoperative day #3. The patient has anemia, status post 2 units red blood transfusion; hypernatremia; leukocytosis, resolved; hypothyroidism; [id number] diabetes mellitus. MENTAL STATUS EXAMINATION: The patient was not forthcoming with information and refused to talk to this keno writer / runner. Intermittent eye contact. Speech was underproductive. Mood: The patient does not want to discuss that. Thought process: Donalds. The patient has poor insight into her illnesses and wants to stay in the hospital and not participating in the treatment. Insight and judgment very limited. Impulses are well controlled so far. IMPRESSION: Most likely, the patient has personality disorder as well as low eduction level. The patient also has questionable hypochondriasis or factitious disorder. PLAN: Continue current management. Continue current medication. Most likely, the patient needs to go to subacute rehab. The patient was educated about the consequences without being able to participate in physical therapy. The patient has low education level, has difficulty to process information, but besides that the patient is not agitated or aggressive. Discussed with Dr. Barajas in details. Should you have any questions, give me a call back and re-consult as needed. Thank you very much. Bev Lopez MD ALEXANDRO
== END 2017-07-31 15:00 | DRG 470 ==
LOC: ED 06:36 → ERH 10:27 → ICU 11:52 → 2RNO 07-28 12:40
PROVIDERS: ADMIT Internal Medicine; ATTEND Internal Medicine
PROC: 0SR90JA Replacement of Right Hip Joint with Synthetic Substitute, Uncemented, Open Approach (ICD-10-PCS; principal; 2017-07-27 16:00)
DX: S72.011A Unspecified intracapsular fracture of right femur, initial encounter for closed fracture (principal); E22.2 Syndrome of inappropriate secretion of antidiuretic hormone; R64 Cachexia; W19.XXXA Unspecified fall, initial encounter; Y92.009 Unspecified place in unspecified non-institutional (private) residence as the place of occurrence of the external cause; D64.9 Anemia, unspecified; D72.829 Elevated white blood cell count, unspecified; E03.9 Hypothyroidism, unspecified; E11.22 Type 2 diabetes mellitus with diabetic chronic kidney disease; E78.5 Hyperlipidemia, unspecified; E83.39 Other disorders of phosphorus metabolism; E83.42 Hypomagnesemia; E87.6 Hypokalemia; E87.8 Other disorders of electrolyte and fluid balance, not elsewhere classified; F31.9 Bipolar disorder, unspecified; F41.0 Panic disorder [episodic paroxysmal anxiety]; F60.9 Personality disorder, unspecified; H40.9 Unspecified glaucoma; I12.9 Hypertensive chronic kidney disease with stage 1 through stage 4 chronic kidney disease, or unspecified chronic kidney disease; I70.0 Atherosclerosis of aorta; K21.9 Gastro-esophageal reflux disease without esophagitis; K59.00 Constipation, unspecified; M81.0 Age-related osteoporosis without current pathological fracture; N18.9 Chronic kidney disease, unspecified; R13.10 Dysphagia, unspecified; Z78.1 Physical restraint status; Z93.1 Gastrostomy status

== ENCOUNTER 2017-12-30 12:44 | Emergency (ER) | payer MEDICARE ==
[2017-12-30 12:45] VITALS: BMI 17.3
[2017-12-30 13:16] VITALS: PULSE 84; RESP 16; TEMP 97.8; O2SAT 99
[2017-12-30 13:20] VITALS: BP 179/73
--- NOTE | 2017-12-30 13:37 | ED PDOC ---
Arrival/HPI - General Time Seen by Provider: 12/30/17 12:50 Historian: Patient - History of Present Illness Narrative History of Present Illness (Text): 12/30/17 13:33 67 year old female, whose past medical history includes hypothyroidism, htn, DM, cachexia, odynophagia, and bipolar disorder, who presents to the ED complaining of sore throat, constipation, and difficulty urinating x 3 days. Patient's states patient wsa very drowsy this morning and fell asleep mid- conversation. Patient denies any fever, chills, cough, chest pain, nausea, vomiting, diarrhea, or any other complaints. Full HPI and ROS limited due to patient falling asleep mid-conversation in ED. Time/Duration: < week Symptom Onset: Gradual Symptom Course: Unchanged Activities at Onset: Light Context: Home Past Medical History - Provider Review Nursing Documentation Reviewed: Yes - Past History Past History: No Previous - Infectious Disease Hx of Infectious Diseases: None - Tetanus Immunization Tetanus Immunization: Unknown - Past Medical History Past Medical History: Non-Contributing - Cardiac Hx Hypertension: Yes - Pulmonary Hx Respiratory Disorders: No - Neurological Hx Neurological Disorder: No - HEENT Hx Difficulty Chewing: Yes Hx Glaucoma: Yes - Renal Hx Renal Disorder: Yes (URINARY RETENTION 07-10-17) - Endocrine/Metabolic Hx Diabetes Mellitus Type 2: Yes Hx Hypothyroidism: Yes - Hematological/Oncological Hx Blood Disorders: No Hx AIDS: No Hx Anemia: No Hx Cancer: No Hx Chemotherapy: No Hx Cirrhosis: No Hx Hepatitis A: No Hx Hepatitis B: No Hx Hepatitis C: No Hx Metastasis: No Hx Shingles: No Hx Unexplained Bleeding: No - Integumentary Hx Dermatological Disorder: Yes - Musculoskeletal/Rheumatological Hx Musculoskeletal Disorders: Yes Hx Falls: Yes - Gastrointestinal Hx Gastrointestinal Disorders: Yes (PEG MID ABDOMINAL AREA) - Genitourinary/Gynecological Hx Genitourinary Disorders: Yes (C/S X 2) - Psychiatric Hx Psychophysiologic Disorder: Yes Hx Anxiety: Yes Hx Bipolar Disorder: Yes Hx Depression: Yes Hx Panic Disorder: Yes Hx Substance Use: No - Past Surgical History Past Surgical History: No Previous - Surgical History Hx Cardiac Catheterization: Yes Hx Coronary Stent: No - Anesthesia Hx Anesthesia Reactions: No Hx Malignant Hyperthermia: No - Suicidal Assessment Feels Threatened In Home Enviroment: No Family/Social History - Physician Review Nursing Documentation Reviewed: Yes Family/Social History: Unknown Family HX Smoking Status: Unknown If Ever Smoked Hx Alcohol Use: No Hx Substance Use: No Hx Substance Use Treatment: No Allergies/Home Meds Allergies/Adverse Reactions: Allergies No Known Allergies Allergy (Verified 12/30/17 13:22) Home Medications: Home Meds Medication Instructions Recorded Confirmed RX: Metoprolol Tartrate [Lopressor] 25 mg PO BID 12/30/17 Review of Systems - Review of Systems Systems not reviewed;Unavailable: Acuity of Condition Physical Exam Vital Signs Reviewed: Yes Vital Signs Temp Pulse Resp BP Pulse Ox 12/30/17 13:05 97.8 F 84 16 179/73 H 99 Temperature: Afebrile Blood Pressure: Hypertensive Pulse: Regular Respiratory Rate: Normal Appearance: Positive for: Well-Appearing, Non-Toxic, Comfortable Pain Distress: None Mental Status: Positive for: Alert and Oriented X 3 Finger Stick Blood Glucose: 95 - Systems Exam Head: Present: Atraumatic, Normocephalic Pupils: Present: PERRL Extroacular Muscles: Present: EOMI Conjunctiva: Present: Normal Mouth: Present: Moist Mucous Membranes Neck: Present: Normal Range of Motion Respiratory/Chest: Present: Clear to Auscultation, Good Air Exchange. No: Respiratory Distress, Accessory Muscle Use Cardiovascular: Present: Regular Rate and Rhythm, Normal S1, S2. No: Murmurs Abdomen: Present: Other (PEG Tube). No: Tenderness, Distention, Peritoneal Signs Back: Present: Normal Inspection Upper Extremity: Present: Normal Inspection. No: Cyanosis, Edema Lower Extremity: Present: Normal Inspection. No: Edema Neurological: Present: GCS=15, CN II-XII Intact, Speech Normal Skin: Present: Warm, Dry, Normal Color. No: Rashes Psychiatric: Present: Alert, Oriented x 3, Normal Insight, Normal Concentration Medical Decision Making ED Course and Treatment: 12/30/17 13:38 Impression: 67 year old female presents to the ED complaining of sore throat, constipation, and difficulty urinating x 3 days. Plan: -- Labs -- CXR -- Abd Xray -- Cepacol -- Fleet Enema -- Sodium Chloride -- EKG Progress Notes: 12/30/17 15:19 CXR reviewed, shows: No active pulmonary disease. Abdomen Xray reviewed, shows: Constipation/ Nonobstructive bowel gas pattern 12/30/17 15:34 Upon reevaluation, patient feels better and will be d/c. - Scribe Statement The provider has reviewed the documentation as recorded by the Scribe Yolande Zavala All medical record entries made by the Scribe were at my direction and personally dictated by me. I have reviewed the chart and agree that the record accurately reflects my personal performance of the history, physical exam, medical decision making, and the department course for this patient. I have also personally directed, reviewed, and agree with the discharge instructions and disposition. Disposition/Present on Arrival - Present on Arrival Any Indicators Present on Arrival: No History of DVT/PE: No History of Uncontrolled Diabetes: No Urinary Catheter: No History Surgical Site Infection Following: None - Disposition Have Diagnosis and Disposition been Completed?: Yes Diagnosis: Constipation, Odynophagia Disposition: HOME/ ROUTINE Disposition Time: 15:34 Condition: GOOD Discharge Instructions (ExitCare): Constipation in Adults Prescriptions: Benzocaine/Menthol [Cepacol Sore Throat] 1 umair MM Q3 #6 umair Polyethylene Glycol 3350 [Miralax] 17 g PO DAILY #1 ml Referrals: Ramy Napier MD [Primary Care Provider] - Follow up with primary Forms: [employer]amee (Icelandic)
[2017-12-30] MEDS ORDERED: Sodium Chloride 0.9% 1,000 ML IV STA (13:39)
[2017-12-30 14:41] LABS: URINE BILIRUBIN NEGATIVE (NEGATIVE); URINE BLOOD TRACE-INTACT (NEGATIVE); URINE GLUCOSE (UA) NEGATIVE (NEGATIVE); URINE LEUKOCYTE ESTERASE NEGATIVE Leu/uL (NEGATIVE); URINE PROTEIN NEGATIVE mg/dL (<30 mg/dL); URINE UROBILINOGEN 0.2 E.U./dL (<1 E.U./dL)
[2017-12-30 14:42] LABS: URINE APPEARANCE CLEAR (CLEAR); URINE COLOR STRAW (YELLOW)
[2017-12-30] MEDS ORDERED: Benzocaine/Menthol (Cepacol) Lozenge MT PRN (14:46)
[2017-12-30 15:09] LABS: BASO # 0.04 K/mm3 (0.0-2.0); BASO % 0.6 % (0.0-3.0); EOS # 0.1 (0.0-0.7); EOS % 1.1 % (1.5-5.0); GRAN # 4.52 (1.4-6.5); GRAN % 68.2 % (50.0-68.0); HEMOGLOBIN 11.1 g/dL (12.0-16.0); LYMPH # 1.4 (1.2-3.4); LYMPH % 21.6 % (22.0-35.0); MEAN CELL VOLUME 82.8 fl (80.0-105.0); MEAN CORPUSCULAR HEMOGLOBIN 27.2 pg (25.0-35.0); MEAN CORPUSCULAR HGB CONC 32.8 g/dl (31.0-37.0); MEAN PLATELET VOLUME 8.9 fl (7.0-11.0); MONO # 0.6 (0.1-0.6); MONO % 8.5 % (1.0-6.0); RBC 4.08 10^6/uL (3.5-6.1); RED CELL DISTRIBUTION WIDTH 13.9 % (11.5-14.5); WHITE BLOOD COUNT 6.6 10^3/uL (4.5-11.0)
[2017-12-30 15:11] LABS: URINE BACTERIA FEW (NEG)
[2017-12-30 15:13] LABS: ALBUMIN 3.9 g/dL (3.0-4.8); ALT/SGPT 23 U/L (7-56); AST/SGOT 24 U/L (14-36); BLOOD UREA NITROGEN 10 mg/dL (7-21); GFR NON-AFRICAN AMERICAN > 60
--- NOTE | 2017-12-30 15:15 | RAD ---
Date of service: 12/30/2017 PROCEDURE: CHEST RADIOGRAPH, 1 VIEW HISTORY: sore throat COMPARISON: 07/24/2017 FINDINGS: LUNGS: The lungs are well inflated. There is mild pulmonary venous congestion PLEURA: No pneumothorax or pleural effusion. CARDIOVASCULAR: Mild cardiomegaly and prominent central vasculature. No aortic atherosclerotic calcifications present. OSSEOUS STRUCTURES: Within normal limits for the patient's age. VISUALIZED UPPER ABDOMEN: Normal. OTHER FINDINGS: None. IMPRESSION: No active pulmonary disease.
--- NOTE | 2017-12-30 15:16 | RAD ---
Date of service: 12/30/2017 HISTORY: Constipation COMPARISON: 07/24/2017 FINDINGS: BOWEL: There is moderate amount of stool in the colon and rectum. The bowel gas pattern is nonspecific. A G-tube overlies the epigastrium. BONES: Status post right hip arthroplasty. Mild multilevel degenerative disc disease OTHER FINDINGS: None. IMPRESSION: Constipation. Nonobstructive bowel gas pattern.
[2017-12-30] MEDS ORDERED: Potassium Chloride 40 mEq/30 ml LIQ UD PEG STA (15:22)
[2017-12-30 15:24] LABS: TROPONIN I < 0.01 ng/mL
--- NOTE | 2017-12-30 18:02 | CARD ---
APPROVED REPORT Date of service: 12/30/2017 EKG Measurement Heart [id number] <Conclusion> Sinus rhythm with premature supraventricular complexes Otherwise normal ECG
== END 2017-12-30 15:46 | disposition home or self-care (01) ==
LOC: ED 12:44
DX: K59.00 Constipation, unspecified (principal); R13.10 Dysphagia, unspecified; I10 Essential (primary) hypertension; E11.9 Type 2 diabetes mellitus without complications
CPT/HCPCS: 71045; 74019; 80053; 81001; 84484; 85025; 87086; 93005; 99284; J3480; J7030

== ENCOUNTER 2018-02-14 21:59 | Inpatient (IN) | payer MEDICARE ==
[2018-02-14 22:07] VITALS: BMI 24.7
--- NOTE | 2018-02-14 22:25 | ED PDOC ---
Arrival/HPI - General Historian: EMS - History of Present Illness Narrative History of Present Illness (Text): 02/14/18 22:25 67 bruneian speaking F with PMH of HTN, DM, hypothyroidism, hyponatremia, cachexia, odynophagia s/p PEG tube, bib by EMS after family members reported 2 e pisodes of nausea/vomiting and altered mental status. Per EMS, pt had vomited twice at home when family members called EMS. She had no nausea/vomiting en route to [facility]. Upon interview, pt repeatedly yelling "doctor." Pt pointing to throat when asked about pain. Pt also grimaces to abdominal palpation. ROS is unable to be obtained PMD: Dr. Castellanos PMH: HTN, DM, Hypothyroidism, cachexia, odynophagia Meds: Lactulose 10 mg PO daily, Vitamin D2 50,000 units PO Q7D, MVM, Potassium Allergy: NKDA PSH: PEG tube FH: unknown Time/Duration: Prior to Arrival Symptom Onset: Gradual Symptom Course: Unchanged Activities at Onset: Rest <Nestor Valverde - Last Filed: 02/15/18 04:29> <Arvin Argueta - Last Filed: 02/15/18 05:00> - General Chief Complaint: GI Problem Past Medical History - Provider Review Nursing Documentation Reviewed: Yes - Past History Past History: No Previous - Infectious Disease Hx of Infectious Diseases: None - Tetanus Immunization Tetanus Immunization: Unknown - Past Medical History Past Medical History: Non-Contributing - Cardiac Hx Hypertension: Yes - Pulmonary Hx Respiratory Disorders: No - Neurological Hx Neurological Disorder: No - HEENT Hx Difficulty Chewing: Yes Hx Glaucoma: Yes - Renal Hx Renal Disorder: Yes (URINARY RETENTION 07-10-17) - Endocrine/Metabolic Hx Diabetes Mellitus Type 2: Yes Hx Hypothyroidism: Yes - Hematological/Oncological Hx Blood Disorders: No Hx AIDS: No Hx Anemia: No Hx Cancer: No Hx Chemotherapy: No Hx Cirrhosis: No Hx Hepatitis A: No Hx Hepatitis B: No Hx Hepatitis C: No Hx Metastasis: No Hx Shingles: No Hx Unexplained Bleeding: No - Integumentary Hx Dermatological Disorder: Yes - Musculoskeletal/Rheumatological Hx Musculoskeletal Disorders: Yes Hx Falls: Yes - Gastrointestinal Hx Gastrointestinal Disorders: Yes (PEG MID ABDOMINAL AREA) - Genitourinary/Gynecological Hx Genitourinary Disorders: Yes (C/S X 2) - Psychiatric Hx Psychophysiologic Disorder: Yes Hx Anxiety: Yes Hx Bipolar Disorder: Yes Hx Depression: Yes Hx Panic Disorder: Yes Hx Substance Use: No - Past Surgical History Past Surgical History: No Previous - Surgical History Hx Cardiac Catheterization: Yes Hx Coronary Stent: No - Anesthesia Hx Anesthesia: Yes Hx Anesthesia Reactions: No Hx Malignant Hyperthermia: No - Suicidal Assessment Feels Threatened In Home Enviroment: No <Nestor Valverde - Last Filed: 02/15/18 04:29> Family/Social History - Physician Review Nursing Documentation Reviewed: Yes Family/Social History: Unknown Family HX Smoking Status: Unknown If Ever Smoked Hx Alcohol Use: No Hx Substance Use: No Hx Substance Use Treatment: No <Nestor Valverde - Last Filed: 02/15/18 04:29> Allergies/Home Meds <Nestor Valverde - Last Filed: 02/15/18 04:29> <Arvin Argueta - Last Filed: 02/15/18 05:00> Allergies/Adverse Reactions: Allergies No Known Allergies Allergy (Verified 12/30/17 13:22) Home Medications: Home Meds Medication Instructions Recorded Confirmed Metoprolol Tartrate [Lopressor] 25 mg PO BID 12/30/17 Review of Systems - Review of Systems Systems not reviewed;Unavailable: Altered Mental Status <Nestor Valverde - Last Filed: 02/15/18 04:29> Physical Exam Vital Signs Reviewed: Yes Vital Signs Pulse Resp BP Pulse Ox 02/14/18 22:19 55 L 18 181/92 H 97 Temperature: Afebrile Blood Pressure: Hypertensive Pulse: Regular Respiratory Rate: Normal Appearance: Positive for: Well-Appearing, Non-Toxic, Comfortable Pain Distress: None Mental Status: Positive for: Alert and Oriented X 3 - Systems Exam Head: Present: Atraumatic, Normocephalic Pupils: Present: PERRL Extroacular Muscles: Present: EOMI Conjunctiva: Present: Normal Mouth: Present: Moist Mucous Membranes Nose (External): Present: Other (dark brown dried blood noted in nares) Neck: Present: Normal Range of Motion Respiratory/Chest: Present: Clear to Auscultation, Good Air Exchange. No: Respiratory Distress, Accessory Muscle Use Cardiovascular: Present: Normal S1, S2, Bradycardic. No: Murmurs Abdomen: Present: Tenderness, Guarding, Feeding Tubes (PEG in placed, dark brown drainage noted). No: Peritoneal Signs Back: Present: Normal Inspection Upper Extremity: Present: Normal Inspection. No: Cyanosis, Edema Lower Extremity: Present: Normal Inspection. No: Edema Neurological: Present: GCS=15 Skin: Present: Warm, Dry, Normal Color. No: Rashes Psychiatric: Present: Agitated <Nestor Valverde - Last Filed: 02/15/18 04:29> Vital Signs Temp Pulse Resp BP Pulse Ox 02/14/18 22:19 97.8 F 53 L 18 160/95 H 97 <Arvin Argueta - Last Filed: 02/15/18 05:00> Medical Decision Making ED Course and Treatment: 02/14/18 22:39 Impression: 67 bruneian speaking F with PMH of HTN, DM, Hypothyroidism, cachexia, s/p PEG tube, odynophagia bib by EMS after family members reported 2 episodes of nausea/vomiting Differential diagnoses includes but not limited to: nausea/vomiting Plan: Labs EKG Chest xray U/a CT abdomen w/ IV contrast Reasses & dispo 02/15/18 02:55 Pt had active seizure with tongue biting, upper extremity flexion. Ativan 1mg IVP ordered and administered. Seizure had resolved after about 10-15 seconds. - EKG Interpretation EKG Interpretation (Text): EKG: Sinus bradycardia with PVCs. Otherwise normal ECG HR 56 bpm QTc: 447ms Interpreted by ED Physician: Yes Type: 12 lead EKG <Nestor Valverde - Last Filed: 02/15/18 04:29> ED Course and Treatment: Impression: Pt seen and evaluated with medical physiologist. Aware and agree with HPI, clinical findings, plan, and management. Pt, whose past medical history includes hypertension, diabetes, hypothyroidism, cachexia, s/p PEG tube, odynophagia, brought in for nausea, vomiting, and altered mental status. Plan: -- CT Abdomen and Pelvis -- EKG -- Labs -- Urinalysis -- Zofran -- Reassess and disposition 02/15/18 02:[address] Halima Pan, crime scene technician, who is aware and agrees with plan. Pt will be admitted to the ICU for hyponatremia and seizure under the hosp italist service. residential program worker notified. - Critical Care Critical Care Minutes: 30 minutes - Lab Interpretations Lab Results: 02/14/18 23:00 Lab Results 02/14/18 23:00: WBC 10.5 D, RBC 4.80, Hgb 12.7, Hct 36.4, MCV 75.8 L D, MCH 2 6.5, MCHC 34.9, RDW 14.0, Plt Count 324, MPV 9.8, Gran % 88.1 H, Lymph % (Auto) 9.0 L, [place] % (Auto) 2.7, Eos % (Auto) 0.1 L, Baso % (Auto) 0.1, Gran # 9.25 H, Lymph # (Auto) 1.0 L, [place] # (Auto) 0.3, Eos # (Auto) 0.0, Baso # (Auto) 0.01 - RAD Interpretation Narrative RAD Interpretations (Text): CT Abdomen and Pelvis: LUNG BASES: The lung bases appear clear. No pleural effusions are seen. LIVER: Unremarkable. GALLBLADDER AND BILE DUCTS: The gallbladder appears within normal limits. No radioopaque gallstones are seen. No biliary ductal dilatation is evident. PANCREAS: Unremarkable. SPLEEN: Unremarkable. ADRENAL GLANDS: Unremarkable. KIDNEYS, URETERS, AND BLADDER: Urinary bladder is markedly distended. STOMACH AND BOWEL: Unremarkable appearance of the stomach and bowel. No evidence of bowel obstruction. No evidence suggesting enteritis or colitis. APPENDIX: No evidence of acute appendicitis on CT examination. PERITONEUM: No free fluid. No free air. LYMPH NODES: No lymphadenopathy is evident. REPRODUCTIVE: Unremarkable as visualized. VASCULATURE: No evidence of abdominal aortic aneurysm. BONES: S/p right total hip replacement. Mild chronic compression fractures of L1, L3, L5 vertebral bodies. MISCELLANEOUS: G-tube is in place. IMPRESSION: 1. G-tube is in place. 2. Urinary bladder is markedly distended. 3. No acute pathology. Electronically signed on Feb 15, 2018 4:18:27 AM EST by: Chito Chandler M.D., JASMEET Certified By [facility]BR & [facility] Fellowship Trained MRI and CT Specialist Radiology Orders: 02/14/18 22:31 ABD & PELVIS IV CONTRAST ONLY [CT] Stat CHEST ONE VIEW [RAD] Stat Sort Line: Radiologist - Medication Orders Current Medication Orders: Discontinued Medications Ondansetron HCl (Zofran Inj) 4 mg IVP STAT STA Stop: 02/14/18 23:21 <Arvin Argueta - Last Filed: 02/15/18 05:00> - PA / ANIMAL REHABILITATOR / Resident Statement / has reviewed & agrees with the documentation as recorded. / has examined the patient and agrees with the treatment plan. <Nestor Valverde - Last Filed: 02/15/18 04:29> Disposition/Present on Arrival - Present on Arrival Any Indicators Present on Arrival: No History of DVT/PE: No History of Uncontrolled Diabetes: No Urinary Catheter: No History of Decub. Ulcer: No History Surgical Site Infection Following: None - Disposition Have Diagnosis and Disposition been Completed?: Yes Disposition Time: 02:55 Patient Plan: ICU <Nestor Valverde - Last Filed: 02/15/18 04:29> <Arvin Argueta - Last Filed: 02/15/18 05:00> - Disposition Diagnosis: Hyponatremia, Altered mental status Disposition: HOSPITALIZED Patient Problems: Current Active Problems Problem Status Onset Altered mental status Acute Hyponatremia Chronic Condition: GUARDED
[2018-02-14 23:28] LABS: BASO # 0.01 K/mm3 (0.0-2.0); BASO % 0.1 % (0.0-3.0); EOS % 0.1 % (1.5-5.0); GRAN # 9.25 (1.4-6.5); GRAN % 88.1 % (50.0-68.0); HEMOGLOBIN 12.7 g/dL (12.0-16.0); MEAN CORPUSCULAR HEMOGLOBIN 26.5 pg (25.0-35.0); MEAN CORPUSCULAR HGB CONC 34.9 g/dl (31.0-37.0); MEAN PLATELET VOLUME 9.8 fl (7.0-11.0); MONO # 0.3 (0.1-0.6); MONO % 2.7 % (1.0-6.0); RBC 4.8 10^6/uL (3.5-6.1); WHITE BLOOD COUNT 10.5 10^3/uL (4.5-11.0)
[2018-02-14 23:31] LABS: MEAN CELL VOLUME 75.8 fl (80.0-105.0)
[2018-02-15] MEDS ORDERED: Morphine 2 mg/ml ISec IVP STA (00:17)
[2018-02-15] MEDS ORDERED: Morphine 4 mg/ml ISec IVP STA (00:24)
[2018-02-15 01:37] LABS: ALBUMIN 4.5 g/dL (3.0-4.8); ALT/SGPT 16 U/L (7-56); AST/SGOT 21 U/L (14-36); BLOOD UREA NITROGEN 9 mg/dL (7-21); CALCIUM 9.4 mg/dL (8.4-10.5); GFR NON-AFRICAN AMERICAN > 60
[2018-02-15] MEDS ORDERED: Sodium Chloride 3% 500 ML IV SCH ×2 (01:45→08:07)
[2018-02-15] MEDS ORDERED: Iohexol 350 MG/100 ML VIAL ONE (02:26)
[2018-02-15] MEDS ORDERED: Sodium Chloride 0.9% 500 ML IV STA (03:11)
[2018-02-15] MEDS ORDERED: Magnesium Sulfate 2 gm/50 ml 2 GM/50 ML BAG IVPB ONE (03:41)
[2018-02-15 04:17] LABS: PH,URINE 7.5 (4.7-8.0); URINE BILIRUBIN NEGATIVE (NEGATIVE); URINE BLOOD SMALL (NEGATIVE); URINE GLUCOSE (UA) 500 mg/dL (NEGATIVE); URINE LEUKOCYTE ESTERASE NEGATIVE Leu/uL (NEGATIVE); URINE PROTEIN 100 mg/dL (<30 mg/dL); URINE UROBILINOGEN 0.2 E.U./dL (<1 E.U./dL)
[2018-02-15 04:19] LABS: URINE APPEARANCE CLEAR (CLEAR); URINE COLOR YELLOW (YELLOW)
--- NOTE | 2018-02-15 04:20 | CP.PCM.HP ---
History of Present Illness - History of Present Illness History of Present Illness: Virginie Bailey, PGY-1 [facility] H&P Note for Dr. Sean Pan: CC: N/V and AMS Pt is a 67 yo F with pmhx of HTN, DM, hypothyroidism, hyponatremia, cachexia and odynophagia s/p PEG tube placement who is BIBA after family reported 2 episodes of nausea and vomiting and AMS. Pt had no further bouts of emesis while in transport or in ED. Pt in the ED was noted to be hyponatremic and sustained a seizure. She was given ativan and started on hypertonic saline. Pt at this time is post-ictal and AOx0, though is able to withdraw to pain and VSS. Hx was unable to obtained. Previous hx was obtained through chart review. Pmhx: HTN, DM, hypothyroidism, hyponatremia, cachexia and odynophagia s/p PEG tube placement Pshx: PEG Tube placement Meds: Lactulose 10 mg PO daily, Vitamin D2 50,000 units PO Q7D, MVM, Potassium All: NKDA Social: Denied tobacco hx, denies etoh or illicit drug use Fam Hx: Unknown Present on Admission - Present on Admission Any Indicators Present on Admission: No Review of Systems - Review of Systems Systems not reviewed;Unavailable: Altered Mental Status (post-ictal) Review of Systems: 12 point ROS unable to be assessed due to pt being post-ictal. Past Patient History - Infectious Disease Hx of Infectious Diseases: None - Tetanus Immunizations Tetanus Immunization: Unknown - Past Social History Smoking Status: Unknown If Ever Smoked - CARDIAC Hx Hypertension: Yes - PULMONARY Hx Respiratory Disorders: No - NEUROLOGICAL Hx Neurological Disorder: No - HEENT Hx Difficulty Chewing: Yes Hx Glaucoma: Yes - RENAL Hx Chronic Kidney Disease: Yes (URINARY RETENTION 07-10-17) - ENDOCRINE/METABOLIC Hx Diabetes Mellitus Type 2: Yes Hx Hypothyroidism: Yes - HEMATOLOGICAL/ONCOLOGICAL Hx Blood Disorders: No Hx AIDS: No Hx Anemia: No Hx Cancer: No Hx Chemotherapy: No Hx Cirrhosis: No Hx Hepatitis A: No Hx Hepatitis B: No Hx Hepatitis C: No Hx Metastesis: No Hx Shingles: No Hx Unexplained Bleeding: No - INTEGUMENTARY Hx Dermatological Problems: Yes - MUSCULOSKELETAL/RHEUMATOLOGICAL Hx Musculoskeletal Disorders: Yes Hx Falls: Yes - GASTROINTESTINAL Hx Gastrointestinal Disorders: Yes (PEG MID ABDOMINAL AREA) - GENITOURINARY/GYNECOLOGICAL Hx Genitourinary Disorders: Yes (C/S X 2) - PSYCHIATRIC Hx Psychophysiologic Disorder: Yes Hx Anxiety: Yes Hx Bipolar Disorder: Yes Hx Depression: Yes Hx Panic Symptoms: Yes Hx Substance Use: No - SURGICAL HISTORY Hx Cardiac Catheterization: Yes Hx Coronary Stent: No - ANESTHESIA Hx Anesthesia: Yes Hx Anesthesia Reactions: No Hx Malignant Hyperthermia: No Meds Allergies/Adverse Reactions: Allergies Allergy/AdvReac Type Severity Reaction Status Date / Time No Known Allergies Allergy Verified 12/30/17 13:22 Physical Exam - Constitutional Appears: Non-toxic, No Acute Distress, Cachectic, Chronically Ill - Head Exam Head Exam: ATRAUMATIC, NORMAL INSPECTION, NORMOCEPHALIC - Eye Exam Eye Exam: EOMI, Normal appearance, PERRL - Respiratory Exam Respiratory Exam: NORMAL BREATHING PATTERN. absent: Accessory Muscle Use, Clear to Auscultation Bilateral (pt had referred upper airway sounds making lung assessment difficult), Respiratory Distress - Cardiovascular Exam Cardiovascular Exam: RRR, +S1, +S2. absent: Gallop, Rubs, Systolic Murmur - GI/Abdominal Exam GI & Abdominal Exam: Normal Bowel Sounds. absent: Distended, Firm Additional comments: Pt has G tube in place, with no surrounding erythema or discharge. - Extremities Exam Extremities exam: Positive for: normal capillary refill, pedal pulses present. Negative for: pedal edema, tenderness - Neurological Exam Neurological exam: Altered (post-ictal) - Psychiatric Exam Additional comments: Pt is somnolent - Skin Skin Exam: Dry, Normal Color, Warm Results - Vital Signs Recent Vital Signs: Last Vital Signs Temp 97.8 F 02/14/18 22:19 Pulse 53 L 02/14/18 22:19 Resp 18 02/14/18 22:19 BP 160/95 H 02/14/18 22:19 Pulse Ox 97 02/14/18 22:19 - Labs Result Diagrams: 02/15/18 04:40 02/15/18 00:15 Labs: Laboratory Results - last 24 hr 02/14/18 02/14/18 02/15/18 22:34 23:00 00:15 WBC 10.5 D RBC 4.80 Hgb 12.7 Hct 36.4 MCV 75.8 L D MCH 26.5 MCHC 34.9 RDW 14.0 Plt Count 324 MPV 9.8 Gran % 88.1 H Lymph % (Auto) 9.0 L [place] % (Auto) 2.7 Eos % (Auto) 0.1 L Baso % (Auto) 0.1 Gran # 9.25 H Lymph # (Auto) 1.0 L [place] # (Auto) 0.3 Eos # (Auto) 0.0 Baso # (Auto) 0.01 Sodium 113 L* Potassium 3.8 Chloride 75 L D Carbon Dioxide 23 Anion Gap 18 BUN 9 Creatinine 0.4 L Est GFR ( Amer) > 60 Est GFR (Non-Af Amer) > 60 POC Glucose (mg/dL) 253 H Random Glucose 232 H Calcium 9.4 Phosphorus 3.3 Magnesium 1.3 L Total Bilirubin 0.6 AST 21 ALT 16 Alkaline Phosphatase 150 H Total Protein 9.0 H Albumin 4.5 Globulin 4.5 Albumin/Globulin Ratio 1.0 L Assessment & Plan - Assessment and Plan (Free Text) Assessment: Pt is a 67 yo F with pmhx of HTN, DM, hypothyroidism, hyponatremia, cachexia and odynophagia s/p PEG tube placement who is BIBA after family reported 2 episodes of nausea and vomiting and AMS. In ED pt has seizure and noted to be hyponatremic. Awaiting results of CT abd/pelvis. Pt started on hypertonic saline. Plan: 1. Hyponatremia: - Possibly 2/2 SIADH - Euvolemic on exam - Head of bed elevated to 30 degrees - G tube to suction to prevent aspiration - Aspiration precautions - Urine Na - Urine osm - Serum osm - Lipid panel - TSH 2. Seizure likely 2/2 symptomatic hyponatremia: - Pt had poor intake - Pt also had 2 bouts of emesis before arrival to ED. - Hypertonic saline @ 50cc/hr - Stat BMP - BMP Q4 hr - Ativan 1 q5mins for active seizures - Seizure precautions - Neurochecks q2 - Nephro consult - Mughni - f/u CT abd/pelvis 3. Hypomagnesemia: - Repleted with 2mg IV mag - f/u in AM 4. Distended bladder: - Possible neurogenic bladder - Daniel in place - Will continue to monitor 5. Fungal rash: - Located at the pannus and under breast folds - Nystatin powder 5. Hx of HTN: - Cont home lopressor 6. Hx of hypothyroidism: - Cont home synthroid 25 mcg - TSH 7. Hx of DM: - HgbA1c - NPO for now 8. Hx of cachexia s/p PEG tube: - G tube in place 9. PPx: - GI: Protonix - DVT: SCDs Case seen and examined with Sean Self, PGY-1
[2018-02-15 04:39] LABS: URINE EPITHELIAL CELLS 0 - 2 /hpf (0-5); URINE RBC 0 - 2 /hpf (0-2); URINE WBC 0 - 2 /hpf (0-6)
[2018-02-15 05:02] LABS: BASO # 0.01 K/mm3 (0.0-2.0); BASO % 0.1 % (0.0-3.0); GRAN # 7.48 (1.4-6.5); GRAN % 84.2 % (50.0-68.0); HEMOGLOBIN 12.5 g/dL (12.0-16.0); LYMPH # 0.9 (1.2-3.4); LYMPH % 10.3 % (22.0-35.0); MEAN CELL VOLUME 75.1 fl (80.0-105.0); MEAN CORPUSCULAR HEMOGLOBIN 26.4 pg (25.0-35.0); MEAN CORPUSCULAR HGB CONC 35.1 g/dl (31.0-37.0); MEAN PLATELET VOLUME 9.3 fl (7.0-11.0); MONO # 0.5 (0.1-0.6); MONO % 5.4 % (1.0-6.0); RBC 4.74 10^6/uL (3.5-6.1); RED CELL DISTRIBUTION WIDTH 14.8 % (11.5-14.5); WHITE BLOOD COUNT 8.9 10^3/uL (4.5-11.0)
[2018-02-15] MEDS: Levothyroxine 25 MCG TAB PO SCH (06:14)
[2018-02-15 06:26] LABS: LDL CHOLESTEROL 136 mg/dL (0-129)
[2018-02-15 06:51] LABS: BLOOD UREA NITROGEN 8 mg/dL (7-21); GFR NON-AFRICAN AMERICAN > 60; HDL CHOLESTEROL 51 mg/dL (29-60)
--- NOTE | 2018-02-15 07:09 | CP.PCM.CON ---
<BabakRomero - Last Filed: 02/15/18 11:20> History of Present Illness - History of Present Illness History of Present Illness: Romero Hilliard Internal Medicine Resident- Consult Note On Behalf of Critical Care Team Subjective: Patient is a 67 year old female with PMHx significant for hyponatremia, hypothyroidism, HTN, DM and failure to thrive who was admitted for evaluation and treatment of nausea/vomiting and AMS. Patient was found to be severely hyponatremic. She had experienced a witnessed tonic-clonic seizure which resolved after administering ativan and starting IVF 3% NS. Patient transferred to ICU for closer monitoring. Patient seen and examined at bedside. Patient is not awake nor alert. Patient does not respond to verbal stimuli. She grimaces and retracts to painful stimuli. Further subjective data cannot be ascertained at this time due to AMS. 12 system ROS cannot be ascetained due to AMS Pmhx: as per records- HTN, DM, hypothyroidism, hyponatremia, cachexia and odynophagia s/p PEG tube placement Pshx: as per records- PEG Tube placement All: NKDA Social: cannot be determined due to AMS Fam Hx: cannot be determined due to AMS Meds: please see MAR Physical Examination: - Constitutional Appears: No Acute Distress, Cachectic, Chronically Ill - Head Exam Head Exam: atraumatic, normocephalic - Neck Exam Head Exam: supple, nontender - Eye Exam Eye Exam: PERRL - Respiratory Exam Respiratory Exam: NORMAL BREATHING PATTERN - Cardiovascular Exam Cardiovascular Exam: bradycardic, +S1, +S2. absent: Gallop, Rubs, Systolic Murmur - GI/Abdominal Exam GI & Abdominal Exam: Normal Bowel Sounds. absent: Distended, Firm Additional comments: Pt has PEG tube in place, with surrounding erythema - Extremities Exam Extremities exam: Positive for: normal capillary refill, pedal pulses present. Negative for: pedal edema, tenderness - Neurological Exam Neurological exam: Altered, not awake nor alert. Patient does not respond to verbal stimuli. She grimaces and retracts to painful stimuli, does not follow commands - Skin Skin Exam: erythema under breast folds and panus Assessment and Plan: Patient is a 67 F with PMH of HTN, DM, Hypothyroidism, Hyponatremia, cachexia, odynophagia, PEG tube placement who was admitted for evaluation and treatment of nausea, vomiting, and AMS. Patient experienced seizure while in the ED and was noted to be severely hyponatremic. Patient transferred to ICU for closer monitoring. Neurology AMS, Seizure - AMS most likely secondary to hyponatremia and post-ictal state - ativan 1mg q5 min PRN active seizures - seizure precautions - Neuro Checks q2 hrs - discontinue hypertonic saline rate to 30 cc/hr, no IVF NS @100c/hr - check BMP q4h - Insert PICC line - Neurology Consulted appreciate recommendations - 02/15/18 CT head without contrasted ordered and pending Cardiovascular Hx of HTN - EKG Sinus Bradycardia HR 55 bpm, QTc 447ms - Hold Home Lopressor 25mg BID due to hypotension - Continue to monitor blood pressure - Echo May 2017- LVEF 59%, left ventricular function normal Hypotension - keep map > 65 Respiratory - CXR (02/14) shows no active disease - Maintain O2 saturation > 90% GI PEG tube malfunctioning, Nausea, Vomiting, Odynophagia - 02/14/18 CT Abdomen Pelvis with IV contrast- proper PEG tube placement, distended stomach and bladder, lumbar vertebral body compression fractures, Focal cortical scarring mid and lower pole regions right kidney - PEG tube malfunction with carbonated fluid flushing - PEG tube suction to prevent aspiration - NPO - Protonix 40 IV daily - GI consulted- appreciate recommendations Endo Hypothyroidism - Continue home Synthroid 25mcg PO daily - Check TSH Diabetes Mellitus II - Sliding scale insulin - Check Hgb A1C - Daily Accuchecks - Diabetic Diet Nephrology 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 Petit. Past Patient History - Infectious Disease Hx of Infectious Diseases: None - Tetanus Immunizations Tetanus Immunization: Unknown - Past Social History Smoking Status: Unknown If Ever Smoked - CARDIAC Hx Hypertension: Yes - PULMONARY Hx Respiratory Disorders: No - NEUROLOGICAL Hx Neurological Disorder: No - HEENT Hx Difficulty Chewing: Yes Hx Glaucoma: Yes - RENAL Hx Chronic Kidney Disease: Yes (URINARY RETENTION 07-10-17) - ENDOCRINE/METABOLIC Hx Diabetes Mellitus Type 2: Yes Hx Hypothyroidism: Yes - HEMATOLOGICAL/ONCOLOGICAL Hx Blood Disorders: No Hx AIDS: No Hx Anemia: No Hx Cancer: No Hx Chemotherapy: No Hx Cirrhosis: No Hx Hepatitis A: No Hx Hepatitis B: No Hx Hepatitis C: No Hx Metastesis: No Hx Shingles: No Hx Unexplained Bleeding: No - INTEGUMENTARY Hx Dermatological Problems: Yes - MUSCULOSKELETAL/RHEUMATOLOGICAL Hx Musculoskeletal Disorders: Yes Hx Falls: Yes - GASTROINTESTINAL Hx Gastrointestinal Disorders: Yes (PEG MID ABDOMINAL AREA) - GENITOURINARY/GYNECOLOGICAL Hx Genitourinary Disorders: Yes (C/S X 2) - PSYCHIATRIC Hx Psychophysiologic Disorder: Yes Hx Anxiety: Yes Hx Bipolar Disorder: Yes Hx Depression: Yes Hx Panic Symptoms: Yes Hx Substance Use: No - SURGICAL HISTORY Hx Cardiac Catheterization: Yes Hx Coronary Stent: No - ANESTHESIA Hx Anesthesia: Yes Hx Anesthesia Reactions: No Hx Malignant Hyperthermia: No Meds Allergies/Adverse Reactions: Allergies Allergy/AdvReac Type Severity Reaction Status Date / Time No Known Allergies Allergy Verified 12/30/17 13:22 - Medications Medications: Current Medications Sodium Chloride (Hypertonic Saline 3%) 500 mls @ 50 mls/hr IV .Q10H [facility] Last Admin: 02/15/18 02:05 Dose: 50 mls/hr Insulin Human Lispro (Humalog Low) 0 units SC ACHS [facility]; Protocol Levothyroxine Sodium (Synthroid) 25 mcg PO 0600 [facility] Last Admin: 02/15/18 06:14 Dose: 25 mcg Lorazepam (Ativan) 1 mg IVP Q5MIN PRN; Protocol PRN Reason: Seizure activity Metoprolol Tartrate (Lopressor) 25 mg PO BID [facility] Nystatin (Nystop Topical Powder) 0 gm TOP BID [facility] Pantoprazole Sodium (Protonix Inj) 40 mg IVP DAILY [facility] Results - Vital Signs Recent Vital Signs: Last Vital Signs Temp 97.8 F 02/14/18 22:19 Pulse 53 L 02/14/18 22:19 Resp 18 02/14/18 22:19 BP 160/95 H 02/14/18 22:19 Pulse Ox 97 02/14/18 22:19 - Labs Result Diagrams: 02/15/18 04:40 02/15/18 08:40 Labs: Laboratory Results - last 24 hr 02/14/18 02/14/18 02/15/18 22:34 23:00 00:15 WBC 10.5 D RBC 4.80 Hgb 12.7 Hct 36.4 MCV 75.8 L D MCH 26.5 MCHC 34.9 RDW 14.0 Plt Count 324 MPV 9.8 Gran % 88.1 H Lymph % (Auto) 9.0 L [place] % (Auto) 2.7 Eos % (Auto) 0.1 L Baso % (Auto) 0.1 Gran # 9.25 H Lymph # (Auto) 1.0 L [place] # (Auto) 0.3 Eos # (Auto) 0.0 Baso # (Auto) 0.01 Sodium 113 L* Potassium 3.8 Chloride 75 L D Carbon Dioxide 23 Anion Gap 18 BUN 9 Creatinine 0.4 L Est GFR ( Amer) > 60 Est GFR (Non-Af Amer) > 60 POC Glucose (mg/dL) 253 H Random Glucose 232 H Serum Osmolality Calcium 9.4 Phosphorus 3.3 Magnesium 1.3 L Total Bilirubin 0.6 AST 21 ALT 16 Alkaline Phosphatase 150 H Total Protein 9.0 H Albumin 4.5 Globulin 4.5 Albumin/Globulin Ratio 1.0 L Triglycerides Cholesterol LDL Cholesterol Direct HDL Cholesterol TSH 3rd Generation Urine Color Urine Appearance Urine pH Ur Specific [place] Urine Protein Urine Glucose (UA) Urine Ketones Urine Blood Urine Nitrate Urine Bilirubin Urine Urobilinogen Ur Leukocyte Esterase Urine RBC Urine WBC Ur Epithelial Cells Urine Bacteria Urine Osmolality Ur Random Sodium Ur Random Potassium 02/15/18 02/15/18 02/15/18 03:37 03:37 04:40 WBC 8.9 RBC 4.74 Hgb 12.5 Hct 35.6 L MCV 75.1 L MCH 26.4 MCHC 35.1 RDW 14.8 H Plt Count 314 MPV 9.3 Gran % 84.2 H Lymph % (Auto) 10.3 L [place] % (Auto) 5.4 Eos % (Auto) 0.0 L Baso % (Auto) 0.1 Gran # 7.48 H Lymph # (Auto) 0.9 L [place] # (Auto) 0.5 Eos # (Auto) 0.0 Baso # (Auto) 0.01 Sodium Potassium Chloride Carbon Dioxide Anion Gap BUN Creatinine Est GFR ( Amer) Est GFR (Non-Af Amer) POC Glucose (mg/dL) Random Glucose Serum Osmolality Calcium Phosphorus Magnesium Total Bilirubin AST ALT Alkaline Phosphatase Total Protein Albumin Globulin Albumin/Globulin Ratio Triglycerides Cholesterol LDL Cholesterol Direct HDL Cholesterol TSH 3rd Generation Urine Color Yellow Urine Appearance Clear Urine pH 7.5 Ur Specific [place] 1.020 Urine Protein 100 H Urine Glucose (UA) 500 H Urine Ketones Negative Urine Blood Small H Urine Nitrate Negative Urine Bilirubin Negative Urine Urobilinogen 0.2 Ur Leukocyte Esterase Negative Urine RBC 0 - 2 Urine WBC 0 - 2 Ur Epithelial Cells 0 - 2 Urine Bacteria None Urine Osmolality 307 Ur Random Sodium 104 Ur Random Potassium 18.5 02/15/18 02/15/18 05:40 05:40 WBC RBC Hgb Hct MCV MCH MCHC RDW Plt Count MPV Gran % Lymph % (Auto) [place] % (Auto) Eos % (Auto) Baso % (Auto) Gran # Lymph # (Auto) [place] # (Auto) Eos # (Auto) Baso # (Auto) Sodium 115 L* Potassium 4.6 Chloride 79 L Carbon Dioxide 24 Anion Gap 16 BUN 8 Creatinine 0.4 L Est GFR ( Amer) > 60 Est GFR (Non-Af Amer) > 60 POC Glucose (mg/dL) Random Glucose 145 H Serum Osmolality 254 L Calcium 9.0 Phosphorus Magnesium Total Bilirubin AST ALT Alkaline Phosphatase Total Protein Albumin Globulin Albumin/Globulin Ratio Triglycerides 65 Cholesterol 216 H LDL Cholesterol Direct 136 H HDL Cholesterol 51 TSH 3rd Generation 3.33 Urine Color Urine Appearance Urine pH Ur Specific [place] Urine Protein Urine Glucose (UA) Urine Ketones Urine Blood Urine Nitrate Urine Bilirubin Urine Urobilinogen Ur Leukocyte Esterase Urine RBC Urine WBC Ur Epithelial Cells Urine Bacteria Urine Osmolality Ur Random Sodium Ur Random Potassium <Jhon Villegas - Last Filed: 02/15/18 16:05> Meds - Medications Medications: Current Medications Sodium Chloride (Hypertonic Saline 3%) 500 mls @ 30 mls/hr IV .[id number] [facility] Last Admin: 02/15/18 08:32 Dose: 30 mls/hr Dextrose (Dextrose 5% In Water 1000 Ml) 1,000 mls @ 100 mls/hr IV .Q10H [facility] Insulin Human Lispro (Humalog Low) 0 units SC ACHS [facility]; Protocol Last Admin: 02/15/18 11:30 Dose: Not Given Levothyroxine Sodium (Synthroid) 25 mcg PO 0600 [facility] Last Admin: 02/15/18 06:14 Dose: 25 mcg Lorazepam (Ativan) 1 mg IVP Q6H PRN; Protocol PRN Reason: Seizure activity Metoprolol Tartrate (Lopressor) 25 mg PO BID [facility] Last Admin: 02/15/18 09:44 Dose: Not Given Nystatin (Nystop Topical Powder) 0 gm TOP BID [facility] Last Admin: 02/15/18 09:43 Dose: 1 applic Pantoprazole Sodium (Protonix Inj) 40 mg IVP DAILY [facility] Last Admin: 02/15/18 09:42 Dose: 40 mg Results - Vital Signs Recent Vital Signs: Last Vital Signs Temp 97.8 F 02/14/18 22:19 Pulse 61 02/15/18 09:44 Resp 18 02/15/18 05:00 BP 108/43 L 02/15/18 09:44 Pulse Ox 100 02/15/18 05:00 - Labs Result Diagrams: 02/15/18 04:40 02/15/18 12:30 Labs: Laboratory Results - last 24 hr 02/14/18 02/14/18 02/15/18 22:34 23:00 00:15 WBC 10.5 D RBC 4.80 Hgb 12.7 Hct 36.4 MCV 75.8 L D MCH 26.5 MCHC 34.9 RDW 14.0 Plt Count 324 MPV 9.8 Gran % 88.1 H Lymph % (Auto) 9.0 L [place] % (Auto) 2.7 Eos % (Auto) 0.1 L Baso % (Auto) 0.1 Gran # 9.25 H Lymph # (Auto) 1.0 L [place] # (Auto) 0.3 Eos # (Auto) 0.0 Baso # (Auto) 0.01 Sodium 113 L* Potassium 3.8 Chloride 75 L D Carbon Dioxide 23 Anion Gap 18 BUN 9 Creatinine 0.4 L Est GFR ( Amer) > 60 Est GFR (Non-Af Amer) > 60 POC Glucose (mg/dL) 253 H Random Glucose 232 H Hemoglobin A1c Serum Osmolality Calcium 9.4 Phosphorus 3.3 Magnesium 1.3 L Total Bilirubin 0.6 AST 21 ALT 16 Alkaline Phosphatase 150 H Total Protein 9.0 H Albumin 4.5 Globulin 4.5 Albumin/Globulin Ratio 1.0 L Triglycerides Cholesterol LDL Cholesterol Direct HDL Cholesterol TSH 3rd Generation Urine Color Urine Appearance Urine pH Ur Specific [place] Urine Protein Urine Glucose (UA) Urine Ketones Urine Blood Urine Nitrate Urine Bilirubin Urine Urobilinogen Ur Leukocyte Esterase Urine RBC Urine WBC Ur Epithelial Cells Urine Bacteria Urine Osmolality Ur Random Sodium Ur Random Potassium 02/15/18 02/15/18 02/15/18 03:37 03:37 04:40 WBC 8.9 RBC 4.74 Hgb 12.5 Hct 35.6 L MCV 75.1 L MCH 26.4 MCHC 35.1 RDW 14.8 H Plt Count 314 MPV 9.3 Gran % 84.2 H Lymph % (Auto) 10.3 L [place] % (Auto) 5.4 Eos % (Auto) 0.0 L Baso % (Auto) 0.1 Gran # 7.48 H Lymph # (Auto) 0.9 L [place] # (Auto) 0.5 Eos # (Auto) 0.0 Baso # (Auto) 0.01 Sodium Potassium Chloride Carbon Dioxide Anion Gap BUN Creatinine Est GFR ( Amer) Est GFR (Non-Af Amer) POC Glucose (mg/dL) Random Glucose Hemoglobin A1c Serum Osmolality Calcium Phosphorus Magnesium Total Bilirubin AST ALT Alkaline Phosphatase Total Protein Albumin Globulin Albumin/Globulin Ratio Triglycerides Cholesterol LDL Cholesterol Direct HDL Cholesterol TSH 3rd Generation Urine Color Yellow Urine Appearance Clear Urine pH 7.5 Ur Specific [place] 1.020 Urine Protein 100 H Urine Glucose (UA) 500 H Urine Ketones Negative Urine Blood Small H Urine Nitrate Negative Urine Bilirubin Negative Urine Urobilinogen 0.2 Ur Leukocyte Esterase Negative Urine RBC 0 - 2 Urine WBC 0 - 2 Ur Epithelial Cells 0 - 2 Urine Bacteria None Urine Osmolality 307 Ur Random Sodium 104 Ur Random Potassium 18.5 02/15/18 02/15/18 02/15/18 05:40 05:40 05:40 WBC RBC Hgb Hct MCV MCH MCHC RDW Plt Count MPV Gran % Lymph % (Auto) [place] % (Auto) Eos % (Auto) Baso % (Auto) Gran # Lymph # (Auto) [place] # (Auto) Eos # (Auto) Baso # (Auto) Sodium 115 L* Potassium 4.6 Chloride 79 L Carbon Dioxide 24 Anion Gap 16 BUN 8 Creatinine 0.4 L Est GFR ( Amer) > 60 Est GFR (Non-Af Amer) > 60 POC Glucose (mg/dL) Random Glucose 145 H Hemoglobin A1c 6.6 H Serum Osmolality 254 L Calcium 9.0 Phosphorus Magnesium Total Bilirubin AST ALT Alkaline Phosphatase Total Protein Albumin Globulin Albumin/Globulin Ratio Triglycerides 65 Cholesterol 216 H LDL Cholesterol Direct 136 H HDL Cholesterol 51 TSH 3rd Generation 3.33 Urine Color Urine Appearance Urine pH Ur Specific [place] Urine Protein Urine Glucose (UA) Urine Ketones Urine Blood Urine Nitrate Urine Bilirubin Urine Urobilinogen Ur Leukocyte Esterase Urine RBC Urine WBC Ur Epithelial Cells Urine Bacteria Urine Osmolality Ur Random Sodium Ur Random Potassium 02/15/18 02/15/18 02/15/18 08:20 08:20 08:30 WBC RBC Hgb Hct MCV MCH MCHC RDW Plt Count MPV Gran % Lymph % (Auto) [place] % (Auto) Eos % (Auto) Baso % (Auto) Gran # Lymph # (Auto) [place] # (Auto) Eos # (Auto) Baso # (Auto) Sodium Potassium Chloride Carbon Dioxide Anion Gap BUN Creatinine Est GFR ( Amer) Est GFR (Non-Af Amer) POC Glucose (mg/dL) 158 H Random Glucose Hemoglobin A1c Serum Osmolality Calcium Phosphorus Magnesium Total Bilirubin AST ALT Alkaline Phosphatase Total Protein Albumin Globulin Albumin/Globulin Ratio Triglycerides Cholesterol LDL Cholesterol Direct HDL Cholesterol TSH 3rd Generation Urine Color Urine Appearance Urine pH Ur Specific [place] Urine Protein Urine Glucose (UA) Urine Ketones Urine Blood Urine Nitrate Urine Bilirubin Urine Urobilinogen Ur Leukocyte Esterase Urine RBC Urine WBC Ur Epithelial Cells Urine Bacteria Urine Osmolality 299 L Ur Random Sodium 89 Ur Random Potassium 02/15/18 02/15/18 02/15/18 08:40 11:00 11:00 WBC RBC Hgb Hct MCV MCH MCHC RDW Plt Count MPV Gran % Lymph % (Auto) [place] % (Auto) Eos % (Auto) Baso % (Auto) Gran # Lymph # (Auto) [place] # (Auto) Eos # (Auto) Baso # (Auto) Sodium 117 L* Potassium 4.4 Chloride 80 L Carbon Dioxide 26 Anion Gap 15 BUN 9 Creatinine 0.4 L Est GFR ( Amer) > 60 Est GFR (Non-Af Amer) > 60 POC Glucose (mg/dL) Random Glucose 197 H Hemoglobin A1c Serum Osmolality Calcium 8.8 Phosphorus Magnesium Total Bilirubin AST ALT Alkaline Phosphatase Total Protein Albumin Globulin Albumin/Globulin Ratio Triglycerides Cholesterol LDL Cholesterol Direct HDL Cholesterol TSH 3rd Generation Urine Color Urine Appearance Urine pH Ur Specific [place] Urine Protein Urine Glucose (UA) Urine Ketones Urine Blood Urine Nitrate Urine Bilirubin Urine Urobilinogen Ur Leukocyte Esterase Urine RBC Urine WBC Ur Epithelial Cells Urine Bacteria Urine Osmolality 228 L Ur Random Sodium 18 Ur Random Potassium 02/15/18 02/15/18 11:50 12:30 WBC RBC Hgb Hct MCV MCH MCHC RDW Plt Count MPV Gran % Lymph % (Auto) [place] % (Auto) Eos % (Auto) Baso % (Auto) Gran # Lymph # (Auto) [place] # (Auto) Eos # (Auto) Baso # (Auto) Sodium 119 L* Potassium 4.2 Chloride 84 L Carbon Dioxide 25 Anion Gap 15 BUN 12 Creatinine 0.5 L Est GFR ( Amer) > 60 Est GFR (Non-Af Amer) > 60 POC Glucose (mg/dL) 102 Random Glucose 103 Hemoglobin A1c Serum Osmolality Calcium 9.0 Phosphorus Magnesium Total Bilirubin AST ALT Alkaline Phosphatase Total Protein Albumin Globulin Albumin/Globulin Ratio Triglycerides Cholesterol LDL Cholesterol Direct HDL Cholesterol TSH 3rd Generation Urine Color Urine Appearance Urine pH Ur Specific [place] Urine Protein Urine Glucose (UA) Urine Ketones Urine Blood Urine Nitrate Urine Bilirubin Urine Urobilinogen Ur Leukocyte Esterase Urine RBC Urine WBC Ur Epithelial Cells Urine Bacteria Urine Osmolality Ur Random Sodium Ur Random Potassium Attending/Attestation - Attestation I have personally seen and examined this patient.: Yes I have fully participated in the care of the patient.: Yes I have reviewed all pertinent clinical information: Yes Notes (Text): 02/15/18 16:01 67 yo female who presented with seizures due to severe hyponatriemia, treated accordingly in ER. started Na level 113. initially on hypertonic saline, now stopped, after Na started to rise. will rule out hypothyroidism, CHF, pulmonary and brain pathology. not on SSRIs or thiazides, will avoid overcorrecting Na (6 meq/L/day for today), low Cl suggests component of hypovolemia as well, but Maryjane is normal. Uosm concentrated. nephrology consulted. ccm time 40 min
[2018-02-15] MEDS: Insulin Lispro (humaLOG) LOW Coverage SC SCH ×4 (08:18→22:18)
--- NOTE | 2018-02-15 08:45 | CP.PCM.CON ---
History of Present Illness - History of Present Illness History of Present Illness: PGY6 GI Fellow Consult Note Patient is a 67yo female with PMHx significant for hyponatremia with suspicion for SIADH, hypothyroidism, HTN, DM and failure to thrive requiring PEG tube placement who presented with nausea/vomiting and AMS. In the ED patient was found to be critically hyponatremic and had a witnessed tonic-clonic seizure. She has since been admitted to the ICU and started on hypertonic saline. Ativan was given for seizure activity. Our service has been consulted for PEG tube malfunction. Per discussion with medical team and staff, patient's family has been using baby food via PEG tube. 12 system ROS cannot be performed given clinical condition PMHx: See HPI PSHx: No prior surgeries noted FHx: Unable to assess Social: No tobacco, EtOH or illicit drug use Endo: EGD/PEG - 07/09/17 Past Patient History - Infectious Disease Hx of Infectious Diseases: None - Tetanus Immunizations Tetanus Immunization: Unknown - Past Social History Smoking Status: Unknown If Ever Smoked - CARDIAC Hx Hypertension: Yes - PULMONARY Hx Respiratory Disorders: No - NEUROLOGICAL Hx Neurological Disorder: No - HEENT Hx Difficulty Chewing: Yes Hx Glaucoma: Yes - RENAL Hx Chronic Kidney Disease: Yes (URINARY RETENTION 07-10-17) - ENDOCRINE/METABOLIC Hx Diabetes Mellitus Type 2: Yes Hx Hypothyroidism: Yes - HEMATOLOGICAL/ONCOLOGICAL Hx Blood Disorders: No Hx AIDS: No Hx Anemia: No Hx Cancer: No Hx Chemotherapy: No Hx Cirrhosis: No Hx Hepatitis A: No Hx Hepatitis B: No Hx Hepatitis C: No Hx Metastesis: No Hx Shingles: No Hx Unexplained Bleeding: No - INTEGUMENTARY Hx Dermatological Problems: Yes - MUSCULOSKELETAL/RHEUMATOLOGICAL Hx Musculoskeletal Disorders: Yes Hx Falls: Yes - GASTROINTESTINAL Hx Gastrointestinal Disorders: Yes (PEG MID ABDOMINAL AREA) - GENITOURINARY/GYNECOLOGICAL Hx Genitourinary Disorders: Yes (C/S X 2) - PSYCHIATRIC Hx Psychophysiologic Disorder: Yes Hx Anxiety: Yes Hx Bipolar Disorder: Yes Hx Depression: Yes Hx Panic Symptoms: Yes Hx Substance Use: No - SURGICAL HISTORY Hx Cardiac Catheterization: Yes Hx Coronary Stent: No - ANESTHESIA Hx Anesthesia: Yes Hx Anesthesia Reactions: No Hx Malignant Hyperthermia: No Meds Allergies/Adverse Reactions: Allergies Allergy/AdvReac Type Severity Reaction Status Date / Time No Known Allergies Allergy Verified 12/30/17 13:22 - Medications Medications: Current Medications Sodium Chloride (Hypertonic Saline 3%) 500 mls @ 30 mls/hr IV .[id number] [facility] Last Admin: 02/15/18 08:32 Dose: 30 mls/hr Insulin Human Lispro (Humalog Low) 0 units SC ACHS [facility]; Protocol Last Admin: 02/15/18 08:18 Dose: Not Given Levothyroxine Sodium (Synthroid) 25 mcg PO 0600 [facility] Last Admin: 02/15/18 06:14 Dose: 25 mcg Lorazepam (Ativan) 1 mg IVP Q5MIN PRN; Protocol PRN Reason: Seizure activity Metoprolol Tartrate (Lopressor) 25 mg PO BID [facility] Nystatin (Nystop Topical Powder) 0 gm TOP BID [facility] Pantoprazole Sodium (Protonix Inj) 40 mg IVP DAILY [facility] Physical Exam - Constitutional Appears: No Acute Distress Additional comments: does not respond to verbal stimulus - Eye Exam Eye Exam: PERRL - ENT Exam ENT Exam: Mucous Membranes Moist - Respiratory Exam Respiratory Exam: Rales. absent: Clear to Auscultation Bilateral, Rhonchi, Wheezes - Cardiovascular Exam Cardiovascular Exam: RRR, +S1, +S2 - GI/Abdominal Exam GI & Abdominal Exam: Normal Bowel Sounds, Soft. absent: Distended, Firm, Guarding, Organomegaly, Rigid, Tenderness Additional comments: PEG in LUQ - Extremities Exam Extremities exam: Positive for: normal inspection. Negative for: pedal edema - Neurological Exam Neurological exam: Altered - Skin Skin Exam: Erythema (surrounding PEG site, likely 2/2 iritation from gastric contents), Warm Results - Vital Signs Recent Vital Signs: Last Vital Signs Temp 97.8 F 02/14/18 22:19 Pulse 61 02/15/18 05:00 Resp 18 02/15/18 05:00 BP 120/59 L 02/15/18 05:00 Pulse Ox 100 02/15/18 05:00 - Labs Result Diagrams: 02/15/18 04:40 02/15/18 16:20 Labs: Laboratory Results - last 24 hr 02/14/18 02/14/18 02/15/18 22:34 23:00 00:15 WBC 10.5 D RBC 4.80 Hgb 12.7 Hct 36.4 MCV 75.8 L D MCH 26.5 MCHC 34.9 RDW 14.0 Plt Count 324 MPV 9.8 Gran % 88.1 H Lymph % (Auto) 9.0 L [place] % (Auto) 2.7 Eos % (Auto) 0.1 L Baso % (Auto) 0.1 Gran # 9.25 H Lymph # (Auto) 1.0 L [place] # (Auto) 0.3 Eos # (Auto) 0.0 Baso # (Auto) 0.01 Sodium 113 L* Potassium 3.8 Chloride 75 L D Carbon Dioxide 23 Anion Gap 18 BUN 9 Creatinine 0.4 L Est GFR ( Amer) > 60 Est GFR (Non-Af Amer) > 60 POC Glucose (mg/dL) 253 H Random Glucose 232 H Serum Osmolality Calcium 9.4 Phosphorus 3.3 Magnesium 1.3 L Total Bilirubin 0.6 AST 21 ALT 16 Alkaline Phosphatase 150 H Total Protein 9.0 H Albumin 4.5 Globulin 4.5 Albumin/Globulin Ratio 1.0 L Triglycerides Cholesterol LDL Cholesterol Direct HDL Cholesterol TSH 3rd Generation Urine Color Urine Appearance Urine pH Ur Specific [place] Urine Protein Urine Glucose (UA) Urine Ketones Urine Blood Urine Nitrate Urine Bilirubin Urine Urobilinogen Ur Leukocyte Esterase Urine RBC Urine WBC Ur Epithelial Cells Urine Bacteria Urine Osmolality Ur Random Sodium Ur Random Potassium 02/15/18 02/15/18 02/15/18 03:37 03:37 04:40 WBC 8.9 RBC 4.74 Hgb 12.5 Hct 35.6 L MCV 75.1 L MCH 26.4 MCHC 35.1 RDW 14.8 H Plt Count 314 MPV 9.3 Gran % 84.2 H Lymph % (Auto) 10.3 L [place] % (Auto) 5.4 Eos % (Auto) 0.0 L Baso % (Auto) 0.1 Gran # 7.48 H Lymph # (Auto) 0.9 L [place] # (Auto) 0.5 Eos # (Auto) 0.0 Baso # (Auto) 0.01 Sodium Potassium Chloride Carbon Dioxide Anion Gap BUN Creatinine Est GFR ( Amer) Est GFR (Non-Af Amer) POC Glucose (mg/dL) Random Glucose Serum Osmolality Calcium Phosphorus Magnesium Total Bilirubin AST ALT Alkaline Phosphatase Total Protein Albumin Globulin Albumin/Globulin Ratio Triglycerides Cholesterol LDL Cholesterol Direct HDL Cholesterol TSH 3rd Generation Urine Color Yellow Urine Appearance Clear Urine pH 7.5 Ur Specific [place] 1.020 Urine Protein 100 H Urine Glucose (UA) 500 H Urine Ketones Negative Urine Blood Small H Urine Nitrate Negative Urine Bilirubin Negative Urine Urobilinogen 0.2 Ur Leukocyte Esterase Negative Urine RBC 0 - 2 Urine WBC 0 - 2 Ur Epithelial Cells 0 - 2 Urine Bacteria None Urine Osmolality 307 Ur Random Sodium 104 Ur Random Potassium 18.5 02/15/18 02/15/18 05:40 05:40 WBC RBC Hgb Hct MCV MCH MCHC RDW Plt Count MPV Gran % Lymph % (Auto) [place] % (Auto) Eos % (Auto) Baso % (Auto) Gran # Lymph # (Auto) [place] # (Auto) Eos # (Auto) Baso # (Auto) Sodium 115 L* Potassium 4.6 Chloride 79 L Carbon Dioxide 24 Anion Gap 16 BUN 8 Creatinine 0.4 L Est GFR ( Amer) > 60 Est GFR (Non-Af Amer) > 60 POC Glucose (mg/dL) Random Glucose 145 H Serum Osmolality 254 L Calcium 9.0 Phosphorus Magnesium Total Bilirubin AST ALT Alkaline Phosphatase Total Protein Albumin Globulin Albumin/Globulin Ratio Triglycerides 65 Cholesterol 216 H LDL Cholesterol Direct 136 H HDL Cholesterol 51 TSH 3rd Generation 3.33 Urine Color Urine Appearance Urine pH Ur Specific [place] Urine Protein Urine Glucose (UA) Urine Ketones Urine Blood Urine Nitrate Urine Bilirubin Urine Urobilinogen Ur Leukocyte Esterase Urine RBC Urine WBC Ur Epithelial Cells Urine Bacteria Urine Osmolality Ur Random Sodium Ur Random Potassium Assessment & Plan - Assessment and Plan (Free Text) Assessment: Patient is a 67yo female with PMHx significant for hyponatremia with suspicion f or SIADH, hypothyroidism, HTN, DM and failure to thrive requiring PEG tube placement who presented with nausea/vomiting and AMS -Hyponatremia -Seizure activity 2/2 above -Acute metabolic encephalopathy 2/2 above -PEG tube malfunction Plan: -PEG tube flushed and cleared of obstruction -OK to use tube for meds/feeds -Recommend re-education of family/caretakers to avoid placing anything but meds/formulas in the PEG tube, appropriate maintenance with water flushes before/after medication administration -If PEG tube malfunction recurs, consider bedside tube exchange -Local skin care -Daily administration of bacitractin - Date & Time Date: 02/15/18 Time: 07:20
--- NOTE | 2018-02-15 08:58 | CT ---
Date of service: 02/15/2018 PROCEDURE: CT Abdomen and Pelvis with contrast HISTORY: abdominal pain COMPARISON: 07/05/2017 CT abdomen and pelvis TECHNIQUE: Intravenous contrast dose: 100 cc Omnipaque 350. Radiation dose: Total exam DLP = 903.88 mGy-cm. This CT exam was performed using one or more of the following dose reduction techniques: Automated exposure control, adjustment of the mA and/or kV according to patient size, and/or use of iterative reconstruction technique. FINDINGS: LOWER THORAX: Unremarkable. LIVER: Unremarkable. No gross lesion or ductal dilatation. GALLBLADDER AND BILE DUCTS: Unremarkable. PANCREAS: Unremarkable. No gross lesion or ductal dilatation. SPLEEN: Unremarkable. ADRENALS: Unremarkable. No mass. KIDNEYS AND URETERS: Unremarkable. No hydronephrosis. No solid mass. Incidental finding(s): Focal cortical scarring mid and lower pole regions right kidney. VASCULATURE: Atherosclerotic calcification and mural plaque present. Findings are seen throughout the aorta which is non aneurysmal. BOWEL: Unremarkable. No obstruction. No gross mural thickening. Stable position of gastrostomy tube. The stomach is markedly distended. APPENDIX: Normal appendix. PERITONEUM: Unremarkable. No free fluid. No free air. LYMPH NODES: Unremarkable. No enlarged lymph nodes. BLADDER: Distended urinary bladder. No focal findings. REPRODUCTIVE: Unremarkable. BONES: No acute fracture. Stable compression deformities multiple lumbar vertebral bodies. OTHER FINDINGS: None. IMPRESSION: No acute findings related to/ accounting for the clinical presentation. Additional benign and/or incidental findings described above. No significant interval change compared to the prior examination(s). Concordant results (preliminary interpretation) provided by [employer]. Procedure Completed: 02:35. Preliminary Report: Dictated and Authenticated: 04:18. Final Interpretation: 08:55.
[2018-02-15 09:10] LABS: BLOOD UREA NITROGEN 9 mg/dL (7-21); CALCIUM 8.8 mg/dL (8.4-10.5); GFR NON-AFRICAN AMERICAN > 60
[2018-02-15] MEDS: Nystatin 100,000 Units/gm Topical Pow(15 gm) TOP SCH ×2 (09:43→17:19)
--- NOTE | 2018-02-15 09:53 | RAD ---
Date of service: 02/15/2018 HISTORY: ams COMPARISON: 12/30/2017 FINDINGS: LUNGS: No active pulmonary disease. PLEURA: No significant pleural effusion identified, no pneumothorax apparent. CARDIOVASCULAR: No aortic atherosclerotic calcification present. Mild cardiomegaly mild vascular congestion OSSEOUS STRUCTURES: No significant abnormalities. VISUALIZED UPPER ABDOMEN: Normal. OTHER FINDINGS: None. IMPRESSION: No active disease.
--- NOTE | 2018-02-15 12:13 | CARD ---
APPROVED REPORT Date of service: 02/14/2018 EKG Measurement Heart [id number] <Conclusion> Sinus bradycardia with premature atrial complexes Otherwise normal ECG
[2018-02-15 13:15] LABS: BLOOD UREA NITROGEN 12 mg/dL (7-21); GFR NON-AFRICAN AMERICAN > 60
--- NOTE | 2018-02-15 13:56 | CP.PCM.APN ---
Subjective - Date & Time of Evaluation Date of Evaluation: 02/15/18 Time of Evaluation: 13:30 - Subjective Subjective: Patient seen and examined, is confused, with wrist restraints on b/l. Appears to be very agitated, yelling. 3% Saline discontinued this afternoon. Review of Systems - Review of Systems Systems not reviewed;Unavailable: Altered Mental Status - Constitutional Constitutional: As Per HPI - EENT Eyes: As Per HPI - Cardiovascular Cardiovascular: As Per HPI - Respiratory Respiratory: As Per HPI - Gastrointestinal Gastrointestinal: As Per HPI - Neurological Neurological: Confusion - Hematologic/Lymphatic Hematologic: As Per HPI Objective - Vital Signs/Intake and Output Vital Signs (last 24 hours): Temp Pulse Resp BP Pulse Ox 97.8 F 61 18 108/43 L 100 02/14/18 22:19 02/15/18 09:44 02/15/18 05:00 02/15/18 09:44 02/15/18 05:00 - Medications Medications: Current Medications Sodium Chloride (Hypertonic Saline 3%) 500 mls @ 30 mls/hr IV .[id number] [facility] Last Admin: 02/15/18 08:32 Dose: 30 mls/hr Insulin Human Lispro (Humalog Low) 0 units SC ACHS [facility]; Protocol Last Admin: 02/15/18 08:18 Dose: Not Given Levothyroxine Sodium (Synthroid) 25 mcg PO 0600 [facility] Last Admin: 02/15/18 06:14 Dose: 25 mcg Lorazepam (Ativan) 1 mg IVP Q6H PRN; Protocol PRN Reason: Seizure activity Metoprolol Tartrate (Lopressor) 25 mg PO BID [facility] Last Admin: 02/15/18 09:44 Dose: Not Given Nystatin (Nystop Topical Powder) 0 gm TOP BID [facility] Last Admin: 02/15/18 09:43 Dose: 1 applic Pantoprazole Sodium (Protonix Inj) 40 mg IVP DAILY [facility] Last Admin: 02/15/18 09:42 Dose: 40 mg - Labs Labs: 02/15/18 04:40 02/15/18 12:30 - Constitutional Appears: Unkempt, Agitated - Head Exam Head Exam: NORMAL INSPECTION - Eye Exam Eye Exam: Normal appearance - ENT Exam ENT Exam: Mucous Membranes Moist, Normal Exam - Neck Exam Neck Exam: Full ROM, Normal Inspection - Respiratory Exam Respiratory Exam: NORMAL BREATHING PATTERN - Cardiovascular Exam Cardiovascular Exam: +S1, +S2 - GI/Abdominal Exam GI & Abdominal Exam: Soft - Rectal Exam Rectal Exam: Deferred - Extremities Exam Extremities Exam: Full ROM - Back Exam Back Exam: NORMAL INSPECTION - Neurological Exam Neurological Exam: Alert, Awake Assessment and Plan - Assessment and Plan (Free Text) Assessment: Patient is a 67yo female with PMHx significant for hyponatremia with suspicion for SIADH, hypothyroidism, HTN, DM and failure to thrive requiring PEG tube placement who presented with nausea/vomiting and AMS. In the ED patient was found to be critically hyponatremic and had a witnessed tonic-clonic seizure. She has since been admitted to the ICU and started on hypertonic saline. Plan: 1. Hyponatremia impoving Follow electrolytes, continue IV fluids. 2. Altered mental status Head CT normal, continue Ativan. will continue to monitor clinical status and follow closely, monitor Sodium
--- NOTE | 2018-02-15 15:42 | CP.PCM.CON ---
<Ousmane Mar - Last Filed: 02/15/18 15:45> History of Present Illness - History of Present Illness History of Present Illness: Neurology Consult Note for Dr. Matute Patient is a 67 yo F with past medical history of HTN, DM, hypothyroidism, hyponatremia, cachexia and odynophagia s/p PEG tube placement who presented to [facility] emergency department after 2 episodes of vomiting and altered mentation. Upon arrival to the ED patient was found to be to be hyponatremic and subsequently seized as a result. Patient was given ativan and started on hypertonic saline. Pmhx: HTN, DM, hypothyroidism, hyponatremia, cachexia and odynophagia s/p PEG tube placement Pshx: PEG Tube placement Meds: Lactulose 10 mg PO daily, Vitamin D2 50,000 units PO Q7D, MVM, Potassium All: NKDA Social: Denied tobacco hx, denies etoh or illicit drug use Fam Hx: Unknown Review of Systems - Review of Systems Systems not reviewed;Unavailable: Uncooperative Past Patient History - Infectious Disease Hx of Infectious Diseases: None - Tetanus Immunizations Tetanus Immunization: Unknown - Past Social History Smoking Status: Unknown If Ever Smoked - CARDIAC Hx Hypertension: Yes - PULMONARY Hx Respiratory Disorders: No - NEUROLOGICAL Hx Neurological Disorder: No - HEENT Hx Difficulty Chewing: Yes Hx Glaucoma: Yes - RENAL Hx Chronic Kidney Disease: Yes (URINARY RETENTION 07-10-17) - ENDOCRINE/METABOLIC Hx Diabetes Mellitus Type 2: Yes Hx Hypothyroidism: Yes - HEMATOLOGICAL/ONCOLOGICAL Hx Blood Disorders: No Hx AIDS: No Hx Anemia: No Hx Cancer: No Hx Chemotherapy: No Hx Cirrhosis: No Hx Hepatitis A: No Hx Hepatitis B: No Hx Hepatitis C: No Hx Metastesis: No Hx Shingles: No Hx Unexplained Bleeding: No - INTEGUMENTARY Hx Dermatological Problems: Yes - MUSCULOSKELETAL/RHEUMATOLOGICAL Hx Musculoskeletal Disorders: Yes Hx Falls: Yes - GASTROINTESTINAL Hx Gastrointestinal Disorders: Yes (PEG MID ABDOMINAL AREA) - GENITOURINARY/GYNECOLOGICAL Hx Genitourinary Disorders: Yes (C/S X 2) - PSYCHIATRIC Hx Psychophysiologic Disorder: Yes Hx Anxiety: Yes Hx Bipolar Disorder: Yes Hx Depression: Yes Hx Panic Symptoms: Yes Hx Substance Use: No - SURGICAL HISTORY Hx Cardiac Catheterization: Yes Hx Coronary Stent: No - ANESTHESIA Hx Anesthesia: Yes Hx Anesthesia Reactions: No Hx Malignant Hyperthermia: No Meds Allergies/Adverse Reactions: Allergies Allergy/AdvReac Type Severity Reaction Status Date / Time No Known Allergies Allergy Verified 12/30/17 13:22 - Medications Medications: Current Medications Sodium Chloride (Hypertonic Saline 3%) 500 mls @ 30 mls/hr IV .[id number] [facility] Last Admin: 02/15/18 08:32 Dose: 30 mls/hr Dextrose (Dextrose 5% In Water 1000 Ml) 1,000 mls @ 100 mls/hr IV .Q10H [facility] Insulin Human Lispro (Humalog Low) 0 units SC ACHS [facility]; Protocol Last Admin: 02/15/18 11:30 Dose: Not Given Levothyroxine Sodium (Synthroid) 25 mcg PO 0600 [facility] Last Admin: 02/15/18 06:14 Dose: 25 mcg Lorazepam (Ativan) 1 mg IVP Q6H PRN; Protocol PRN Reason: Seizure activity Metoprolol Tartrate (Lopressor) 25 mg PO BID [facility] Last Admin: 02/15/18 09:44 Dose: Not Given Nystatin (Nystop Topical Powder) 0 gm TOP BID [facility] Last Admin: 02/15/18 09:43 Dose: 1 applic Pantoprazole Sodium (Protonix Inj) 40 mg IVP DAILY [facility] Last Admin: 02/15/18 09:42 Dose: 40 mg Physical Exam - Head Exam Head Exam: ATRAUMATIC, NORMAL INSPECTION, NORMOCEPHALIC - Eye Exam Eye Exam: EOMI, Normal appearance - ENT Exam ENT Exam: Mucous Membranes Dry - Respiratory Exam Respiratory Exam: Clear to Auscultation Bilateral, NORMAL BREATHING PATTERN - Cardiovascular Exam Cardiovascular Exam: REGULAR RHYTHM, +S1, +S2 - GI/Abdominal Exam GI & Abdominal Exam: Soft - Neurological Exam Neurological exam: Alert - Additional Findings Additional findings: Neuro exam not fully completed due to lack of cooperation. Results - Vital Signs Recent Vital Signs: Last Vital Signs Temp 97.8 F 02/14/18 22:19 Pulse 61 02/15/18 09:44 Resp 18 02/15/18 05:00 BP 108/43 L 02/15/18 09:44 Pulse Ox 100 02/15/18 05:00 - Labs Result Diagrams: 02/15/18 04:40 02/15/18 12:30 Labs: Laboratory Results - last 24 hr 02/14/18 02/14/18 02/15/18 22:34 23:00 00:15 WBC 10.5 D RBC 4.80 Hgb 12.7 Hct 36.4 MCV 75.8 L D MCH 26.5 MCHC 34.9 RDW 14.0 Plt Count 324 MPV 9.8 Gran % 88.1 H Lymph % (Auto) 9.0 L [place] % (Auto) 2.7 Eos % (Auto) 0.1 L Baso % (Auto) 0.1 Gran # 9.25 H Lymph # (Auto) 1.0 L [place] # (Auto) 0.3 Eos # (Auto) 0.0 Baso # (Auto) 0.01 Sodium 113 L* Potassium 3.8 Chloride 75 L D Carbon Dioxide 23 Anion Gap 18 BUN 9 Creatinine 0.4 L Est GFR ( Amer) > 60 Est GFR (Non-Af Amer) > 60 POC Glucose (mg/dL) 253 H Random Glucose 232 H Hemoglobin A1c Serum Osmolality Calcium 9.4 Phosphorus 3.3 Magnesium 1.3 L Total Bilirubin 0.6 AST 21 ALT 16 Alkaline Phosphatase 150 H Total Protein 9.0 H Albumin 4.5 Globulin 4.5 Albumin/Globulin Ratio 1.0 L Triglycerides Cholesterol LDL Cholesterol Direct HDL Cholesterol TSH 3rd Generation Urine Color Urine Appearance Urine pH Ur Specific [place] Urine Protein Urine Glucose (UA) Urine Ketones Urine Blood Urine Nitrate Urine Bilirubin Urine Urobilinogen Ur Leukocyte Esterase Urine RBC Urine WBC Ur Epithelial Cells Urine Bacteria Urine Osmolality Ur Random Sodium Ur Random Potassium 02/15/18 02/15/18 02/15/18 03:37 03:37 04:40 WBC 8.9 RBC 4.74 Hgb 12.5 Hct 35.6 L MCV 75.1 L MCH 26.4 MCHC 35.1 RDW 14.8 H Plt Count 314 MPV 9.3 Gran % 84.2 H Lymph % (Auto) 10.3 L [place] % (Auto) 5.4 Eos % (Auto) 0.0 L Baso % (Auto) 0.1 Gran # 7.48 H Lymph # (Auto) 0.9 L [place] # (Auto) 0.5 Eos # (Auto) 0.0 Baso # (Auto) 0.01 Sodium Potassium Chloride Carbon Dioxide Anion Gap BUN Creatinine Est GFR ( Amer) Est GFR (Non-Af Amer) POC Glucose (mg/dL) Random Glucose Hemoglobin A1c Serum Osmolality Calcium Phosphorus Magnesium Total Bilirubin AST ALT Alkaline Phosphatase Total Protein Albumin Globulin Albumin/Globulin Ratio Triglycerides Cholesterol LDL Cholesterol Direct HDL Cholesterol TSH 3rd Generation Urine Color Yellow Urine Appearance Clear Urine pH 7.5 Ur Specific [place] 1.020 Urine Protein 100 H Urine Glucose (UA) 500 H Urine Ketones Negative Urine Blood Small H Urine Nitrate Negative Urine Bilirubin Negative Urine Urobilinogen 0.2 Ur Leukocyte Esterase Negative Urine RBC 0 - 2 Urine WBC 0 - 2 Ur Epithelial Cells 0 - 2 Urine Bacteria None Urine Osmolality 307 Ur Random Sodium 104 Ur Random Potassium 18.5 02/15/18 02/15/18 02/15/18 05:40 05:40 05:40 WBC RBC Hgb Hct MCV MCH MCHC RDW Plt Count MPV Gran % Lymph % (Auto) [place] % (Auto) Eos % (Auto) Baso % (Auto) Gran # Lymph # (Auto) [place] # (Auto) Eos # (Auto) Baso # (Auto) Sodium 115 L* Potassium 4.6 Chloride 79 L Carbon Dioxide 24 Anion Gap 16 BUN 8 Creatinine 0.4 L Est GFR ( Amer) > 60 Est GFR (Non-Af Amer) > 60 POC Glucose (mg/dL) Random Glucose 145 H Hemoglobin A1c 6.6 H Serum Osmolality 254 L Calcium 9.0 Phosphorus Magnesium Total Bilirubin AST ALT Alkaline Phosphatase Total Protein Albumin Globulin Albumin/Globulin Ratio Triglycerides 65 Cholesterol 216 H LDL Cholesterol Direct 136 H HDL Cholesterol 51 TSH 3rd Generation 3.33 Urine Color Urine Appearance Urine pH Ur Specific [place] Urine Protein Urine Glucose (UA) Urine Ketones Urine Blood Urine Nitrate Urine Bilirubin Urine Urobilinogen Ur Leukocyte Esterase Urine RBC Urine WBC Ur Epithelial Cells Urine Bacteria Urine Osmolality Ur Random Sodium Ur Random Potassium 02/15/18 02/15/18 02/15/18 08:20 08:20 08:30 WBC RBC Hgb Hct MCV MCH MCHC RDW Plt Count MPV Gran % Lymph % (Auto) [place] % (Auto) Eos % (Auto) Baso % (Auto) Gran # Lymph # (Auto) [place] # (Auto) Eos # (Auto) Baso # (Auto) Sodium Potassium Chloride Carbon Dioxide Anion Gap BUN Creatinine Est GFR ( Amer) Est GFR (Non-Af Amer) POC Glucose (mg/dL) 158 H Random Glucose Hemoglobin A1c Serum Osmolality Calcium Phosphorus Magnesium Total Bilirubin AST ALT Alkaline Phosphatase Total Protein Albumin Globulin Albumin/Globulin Ratio Triglycerides Cholesterol LDL Cholesterol Direct HDL Cholesterol TSH 3rd Generation Urine Color Urine Appearance Urine pH Ur Specific [place] Urine Protein Urine Glucose (UA) Urine Ketones Urine Blood Urine Nitrate Urine Bilirubin Urine Urobilinogen Ur Leukocyte Esterase Urine RBC Urine WBC Ur Epithelial Cells Urine Bacteria Urine Osmolality 299 L Ur Random Sodium 89 Ur Random Potassium 02/15/18 02/15/18 02/15/18 08:40 11:00 11:00 WBC RBC Hgb Hct MCV MCH MCHC RDW Plt Count MPV Gran % Lymph % (Auto) [place] % (Auto) Eos % (Auto) Baso % (Auto) Gran # Lymph # (Auto) [place] # (Auto) Eos # (Auto) Baso # (Auto) Sodium 117 L* Potassium 4.4 Chloride 80 L Carbon Dioxide 26 Anion Gap 15 BUN 9 Creatinine 0.4 L Est GFR ( Amer) > 60 Est GFR (Non-Af Amer) > 60 POC Glucose (mg/dL) Random Glucose 197 H Hemoglobin A1c Serum Osmolality Calcium 8.8 Phosphorus Magnesium Total Bilirubin AST ALT Alkaline Phosphatase Total Protein Albumin Globulin Albumin/Globulin Ratio Triglycerides Cholesterol LDL Cholesterol Direct HDL Cholesterol TSH 3rd Generation Urine Color Urine Appearance Urine pH Ur Specific [place] Urine Protein Urine Glucose (UA) Urine Ketones Urine Blood Urine Nitrate Urine Bilirubin Urine Urobilinogen Ur Leukocyte Esterase Urine RBC Urine WBC Ur Epithelial Cells Urine Bacteria Urine Osmolality 228 L Ur Random Sodium 18 Ur Random Potassium 02/15/18 02/15/18 11:50 12:30 WBC RBC Hgb Hct MCV MCH MCHC RDW Plt Count MPV Gran % Lymph % (Auto) [place] % (Auto) Eos % (Auto) Baso % (Auto) Gran # Lymph # (Auto) [place] # (Auto) Eos # (Auto) Baso # (Auto) Sodium 119 L* Potassium 4.2 Chloride 84 L Carbon Dioxide 25 Anion Gap 15 BUN 12 Creatinine 0.5 L Est GFR ( Amer) > 60 Est GFR (Non-Af Amer) > 60 POC Glucose (mg/dL) 102 Random Glucose 103 Hemoglobin A1c Serum Osmolality Calcium 9.0 Phosphorus Magnesium Total Bilirubin AST ALT Alkaline Phosphatase Total Protein Albumin Globulin Albumin/Globulin Ratio Triglycerides Cholesterol LDL Cholesterol Direct HDL Cholesterol TSH 3rd Generation Urine Color Urine Appearance Urine pH Ur Specific [place] Urine Protein Urine Glucose (UA) Urine Ketones Urine Blood Urine Nitrate Urine Bilirubin Urine Urobilinogen Ur Leukocyte Esterase Urine RBC Urine WBC Ur Epithelial Cells Urine Bacteria Urine Osmolality Ur Random Sodium Ur Random Potassium Assessment & Plan - Assessment and Plan (Free Text) Assessment: Patient is a 67 yo F with past medical history of HTN, DM, hypothyroidism, hypon atremia, cachexia and odynophagia s/p PEG tube placement who presented to [facility] emergency department after 2 episodes of vomiting and altered mentation found to have sustained a tonic-clonic seizure due to sodium level Seizures secondary to hyponatremia -Treat hyponatremia -Continue to monitor -CT head <Alex Matute - Last Filed: 02/15/18 20:31> Meds - Medications Medications: Current Medications Sodium Chloride (Hypertonic Saline 3%) 500 mls @ 30 mls/hr IV .[id number] [facility] Last Admin: 02/15/18 08:32 Dose: 30 mls/hr Dextrose (Dextrose 5% In Water 1000 Ml) 1,000 mls @ 100 mls/hr IV .Q10H [facility] Last Admin: 02/15/18 17:19 Dose: Not Given Insulin Human Lispro (Humalog Low) 0 units SC ACHS [facility]; Protocol Last Admin: 02/15/18 17:19 Dose: Not Given Levothyroxine Sodium (Synthroid) 25 mcg PO 0600 [facility] Last Admin: 02/15/18 06:14 Dose: 25 mcg Lorazepam (Ativan) 1 mg IVP Q6H PRN; Protocol PRN Reason: Seizure activity Metoprolol Tartrate (Lopressor) 25 mg PO BID [facility] Last Admin: 02/15/18 09:44 Dose: Not Given Nystatin (Nystop Topical Powder) 0 gm TOP BID [facility] Last Admin: 02/15/18 17:19 Dose: 1 applic Pantoprazole Sodium (Protonix Inj) 40 mg IVP DAILY [facility] Last Admin: 02/15/18 09:42 Dose: 40 mg Results - Vital Signs Recent Vital Signs: Last Vital Signs Temp 97.8 F 02/14/18 22:19 Pulse 61 02/15/18 09:44 Resp 18 02/15/18 05:00 BP 108/43 L 02/15/18 09:44 Pulse Ox 100 02/15/18 05:00 - Labs Result Diagrams: 02/15/18 04:40 02/15/18 16:20 Labs: Laboratory Results - last 24 hr 02/14/18 02/14/18 02/15/18 22:34 23:00 00:15 WBC 10.5 D RBC 4.80 Hgb 12.7 Hct 36.4 MCV 75.8 L D MCH 26.5 MCHC 34.9 RDW 14.0 Plt Count 324 MPV 9.8 Gran % 88.1 H Lymph % (Auto) 9.0 L [place] % (Auto) 2.7 Eos % (Auto) 0.1 L Baso % (Auto) 0.1 Gran # 9.25 H Lymph # (Auto) 1.0 L [place] # (Auto) 0.3 Eos # (Auto) 0.0 Baso # (Auto) 0.01 Sodium 113 L* Potassium 3.8 Chloride 75 L D Carbon Dioxide 23 Anion Gap 18 BUN 9 Creatinine 0.4 L Est GFR ( Amer) > 60 Est GFR (Non-Af Amer) > 60 POC Glucose (mg/dL) 253 H Random Glucose 232 H Hemoglobin A1c Serum Osmolality Calcium 9.4 Phosphorus 3.3 Magnesium 1.3 L Total Bilirubin 0.6 AST 21 ALT 16 Alkaline Phosphatase 150 H Total Protein 9.0 H Albumin 4.5 Globulin 4.5 Albumin/Globulin Ratio 1.0 L Triglycerides Cholesterol LDL Cholesterol Direct HDL Cholesterol TSH 3rd Generation Urine Color Urine Appearance Urine pH Ur Specific [place] Urine Protein Urine Glucose (UA) Urine Ketones Urine Blood Urine Nitrate Urine Bilirubin Urine Urobilinogen Ur Leukocyte Esterase Urine RBC Urine WBC Ur Epithelial Cells Urine Bacteria Urine Osmolality Ur Random Sodium Ur Random Potassium 02/15/18 02/15/18 02/15/18 03:37 03:37 04:40 WBC 8.9 RBC 4.74 Hgb 12.5 Hct 35.6 L MCV 75.1 L MCH 26.4 MCHC 35.1 RDW 14.8 H Plt Count 314 MPV 9.3 Gran % 84.2 H Lymph % (Auto) 10.3 L [place] % (Auto) 5.4 Eos % (Auto) 0.0 L Baso % (Auto) 0.1 Gran # 7.48 H Lymph # (Auto) 0.9 L [place] # (Auto) 0.5 Eos # (Auto) 0.0 Baso # (Auto) 0.01 Sodium Potassium Chloride Carbon Dioxide Anion Gap BUN Creatinine Est GFR ( Amer) Est GFR (Non-Af Amer) POC Glucose (mg/dL) Random Glucose Hemoglobin A1c Serum Osmolality Calcium Phosphorus Magnesium Total Bilirubin AST ALT Alkaline Phosphatase Total Protein Albumin Globulin Albumin/Globulin Ratio Triglycerides Cholesterol LDL Cholesterol Direct HDL Cholesterol TSH 3rd Generation Urine Color Yellow Urine Appearance Clear Urine pH 7.5 Ur Specific [place] 1.020 Urine Protein 100 H Urine Glucose (UA) 500 H Urine Ketones Negative Urine Blood Small H Urine Nitrate Negative Urine Bilirubin Negative Urine Urobilinogen 0.2 Ur Leukocyte Esterase Negative Urine RBC 0 - 2 Urine WBC 0 - 2 Ur Epithelial Cells 0 - 2 Urine Bacteria None Urine Osmolality 307 Ur Random Sodium 104 Ur Random Potassium 18.5 02/15/18 02/15/18 02/15/18 05:40 05:40 05:40 WBC RBC Hgb Hct MCV MCH MCHC RDW Plt Count MPV Gran % Lymph % (Auto) [place] % (Auto) Eos % (Auto) Baso % (Auto) Gran # Lymph # (Auto) [place] # (Auto) Eos # (Auto) Baso # (Auto) Sodium 115 L* Potassium 4.6 Chloride 79 L Carbon Dioxide 24 Anion Gap 16 BUN 8 Creatinine 0.4 L Est GFR ( Amer) > 60 Est GFR (Non-Af Amer) > 60 POC Glucose (mg/dL) Random Glucose 145 H Hemoglobin A1c 6.6 H Serum Osmolality 254 L Calcium 9.0 Phosphorus Magnesium Total Bilirubin AST ALT Alkaline Phosphatase Total Protein Albumin Globulin Albumin/Globulin Ratio Triglycerides 65 Cholesterol 216 H LDL Cholesterol Direct 136 H HDL Cholesterol 51 TSH 3rd Generation 3.33 Urine Color Urine Appearance Urine pH Ur Specific [place] Urine Protein Urine Glucose (UA) Urine Ketones Urine Blood Urine Nitrate Urine Bilirubin Urine Urobilinogen Ur Leukocyte Esterase Urine RBC Urine WBC Ur Epithelial Cells Urine Bacteria Urine Osmolality Ur Random Sodium Ur Random Potassium 02/15/18 02/15/18 02/15/18 08:20 08:20 08:30 WBC RBC Hgb Hct MCV MCH MCHC RDW Plt Count MPV Gran % Lymph % (Auto) [place] % (Auto) Eos % (Auto) Baso % (Auto) Gran # Lymph # (Auto) [place] # (Auto) Eos # (Auto) Baso # (Auto) Sodium Potassium Chloride Carbon Dioxide Anion Gap BUN Creatinine Est GFR ( Amer) Est GFR (Non-Af Amer) POC Glucose (mg/dL) 158 H Random Glucose Hemoglobin A1c Serum Osmolality Calcium Phosphorus Magnesium Total Bilirubin AST ALT Alkaline Phosphatase Total Protein Albumin Globulin Albumin/Globulin Ratio Triglycerides Cholesterol LDL Cholesterol Direct HDL Cholesterol TSH 3rd Generation Urine Color Urine Appearance Urine pH Ur Specific [place] Urine Protein Urine Glucose (UA) Urine Ketones Urine Blood Urine Nitrate Urine Bilirubin Urine Urobilinogen Ur Leukocyte Esterase Urine RBC Urine WBC Ur Epithelial Cells Urine Bacteria Urine Osmolality 299 L Ur Random Sodium 89 Ur Random Potassium 02/15/18 02/15/18 02/15/18 08:40 11:00 11:00 WBC RBC Hgb Hct MCV MCH MCHC RDW Plt Count MPV Gran % Lymph % (Auto) [place] % (Auto) Eos % (Auto) Baso % (Auto) Gran # Lymph # (Auto) [place] # (Auto) Eos # (Auto) Baso # (Auto) Sodium 117 L* Potassium 4.4 Chloride 80 L Carbon Dioxide 26 Anion Gap 15 BUN 9 Creatinine 0.4 L Est GFR ( Amer) > 60 Est GFR (Non-Af Amer) > 60 POC Glucose (mg/dL) Random Glucose 197 H Hemoglobin A1c Serum Osmolality Calcium 8.8 Phosphorus Magnesium Total Bilirubin AST ALT Alkaline Phosphatase Total Protein Albumin Globulin Albumin/Globulin Ratio Triglycerides Cholesterol LDL Cholesterol Direct HDL Cholesterol TSH 3rd Generation Urine Color Urine Appearance Urine pH Ur Specific [place] Urine Protein Urine Glucose (UA) Urine Ketones Urine Blood Urine Nitrate Urine Bilirubin Urine Urobilinogen Ur Leukocyte Esterase Urine RBC Urine WBC Ur Epithelial Cells Urine Bacteria Urine Osmolality 228 L Ur Random Sodium 18 Ur Random Potassium 02/15/18 02/15/18 02/15/18 11:50 12:30 16:20 WBC RBC Hgb Hct MCV MCH MCHC RDW Plt Count MPV Gran % Lymph % (Auto) [place] % (Auto) Eos % (Auto) Baso % (Auto) Gran # Lymph # (Auto) [place] # (Auto) Eos # (Auto) Baso # (Auto) Sodium 119 L* 120 L Potassium 4.2 3.8 Chloride 84 L 86 L Carbon Dioxide 25 23 Anion Gap 15 15 BUN 12 14 Creatinine 0.5 L 0.5 L Est GFR ( Amer) > 60 > 60 Est GFR (Non-Af Amer) > 60 > 60 POC Glucose (mg/dL) 102 Random Glucose 103 122 H Hemoglobin A1c Serum Osmolality Calcium 9.0 9.2 Phosphorus Magnesium Total Bilirubin AST ALT Alkaline Phosphatase Total Protein Albumin Globulin Albumin/Globulin Ratio Triglycerides Cholesterol LDL Cholesterol Direct HDL Cholesterol TSH 3rd Generation Urine Color Urine Appearance Urine pH Ur Specific [place] Urine Protein Urine Glucose (UA) Urine Ketones Urine Blood Urine Nitrate Urine Bilirubin Urine Urobilinogen Ur Leukocyte Esterase Urine RBC Urine WBC Ur Epithelial Cells Urine Bacteria Urine Osmolality Ur Random Sodium Ur Random Potassium Assessment & Plan - Assessment and Plan (Free Text) Assessment: I examined the patient independently and helped him to formulate the assessment and plan. I agree with the above Thank you Dr Pretty
[2018-02-15 16:48] LABS: BLOOD UREA NITROGEN 14 mg/dL (7-21); CALCIUM 9.2 mg/dL (8.4-10.5); GFR NON-AFRICAN AMERICAN > 60
[2018-02-15 20:41] LABS: BLOOD UREA NITROGEN 12 mg/dL (7-21); CALCIUM 8.9 mg/dL (8.4-10.5); GFR NON-AFRICAN AMERICAN > 60
[2018-02-16 01:01] LABS: BLOOD UREA NITROGEN 10 mg/dL (7-21); CALCIUM 8.6 mg/dL (8.4-10.5); GFR NON-AFRICAN AMERICAN > 60
[2018-02-16] MEDS ORDERED: Sodium Chloride 0.9% 1,000 ML IV SCH (04:30)
[2018-02-16 05:57] LABS: BASO # 0.01 K/mm3 (0.0-2.0); BASO % 0.1 % (0.0-3.0); EOS % 0.4 % (1.5-5.0); GRAN # 6.09 (1.4-6.5); GRAN % 79.9 % (50.0-68.0); HEMOGLOBIN 13.4 g/dL (12.0-16.0); LYMPH # 1.1 (1.2-3.4); LYMPH % 14.2 % (22.0-35.0); MEAN CELL VOLUME 76.3 fl (80.0-105.0); MEAN CORPUSCULAR HEMOGLOBIN 26.4 pg (25.0-35.0); MEAN CORPUSCULAR HGB CONC 34.6 g/dl (31.0-37.0); MEAN PLATELET VOLUME 9.7 fl (7.0-11.0); MONO # 0.4 (0.1-0.6); MONO % 5.4 % (1.0-6.0); RBC 5.07 10^6/uL (3.5-6.1); RED CELL DISTRIBUTION WIDTH 13.8 % (11.5-14.5); WHITE BLOOD COUNT 7.6 10^3/uL (4.5-11.0)
[2018-02-16 06:19] LABS: ALBUMIN 4.2 g/dL (3.0-4.8); ALT/SGPT 13 U/L (7-56); AST/SGOT 46 U/L (14-36); BLOOD UREA NITROGEN 10 mg/dL (7-21); CALCIUM 8.9 mg/dL (8.4-10.5); GFR NON-AFRICAN AMERICAN > 60
--- NOTE | 2018-02-16 06:25 | CP.PCM.CON ---
History of Present Illness - History of Present Illness History of Present Illness: 67 yo F w/ pmh of HTN, DM, hypothyroidism, cachexia, odynophagia s/p PEG tube placement and recurrent hyponatremia, was brought to ED after family reported 2 episodes of nausea and vomiting and AMS; nephrology being consulted for severe hyponatremia; History limited only to medical record as patient doesn't offer any history and is arousable but non-verbal; Patient reportedly had no further bouts of emesis while in transport or in ED; she did have a seizure episode in ED and was given ativan; was also given 500 cc NS bolus and started on hypertonic 3% saline at 50 cc/hr; Per ICU nursing staff, PEG tube was clogged with tablets and was able to be unclogged; unclear how long PEG tube was clogged; Review of Systems - Review of Systems Systems not reviewed;Unavailable: Altered Mental Status Past Patient History - Infectious Disease Hx of Infectious Diseases: None - Tetanus Immunizations Tetanus Immunization: Unknown - Past Medical History & Family History Past Medical History?: Yes Pertinent Family History: Unknown - Past Social History Smoking Status: Unknown If Ever Smoked - CARDIAC Hx Hypertension: Yes - PULMONARY Hx Respiratory Disorders: No - NEUROLOGICAL Hx Neurological Disorder: No - HEENT Hx Difficulty Chewing: Yes Hx Glaucoma: Yes - RENAL Hx Chronic Kidney Disease: Yes (URINARY RETENTION 07-10-17) - ENDOCRINE/METABOLIC Hx Diabetes Mellitus Type 2: Yes Hx Hypothyroidism: Yes - HEMATOLOGICAL/ONCOLOGICAL Hx Blood Disorders: No Hx AIDS: No Hx Anemia: No Hx Cancer: No Hx Chemotherapy: No Hx Cirrhosis: No Hx Hepatitis A: No Hx Hepatitis B: No Hx Hepatitis C: No Hx Metastesis: No Hx Shingles: No Hx Unexplained Bleeding: No - INTEGUMENTARY Hx Dermatological Problems: Yes - MUSCULOSKELETAL/RHEUMATOLOGICAL Hx Musculoskeletal Disorders: Yes Hx Falls: Yes - GASTROINTESTINAL Hx Gastrointestinal Disorders: Yes (PEG MID ABDOMINAL AREA) - GENITOURINARY/GYNECOLOGICAL Hx Genitourinary Disorders: Yes (C/S X 2) - PSYCHIATRIC Hx Psychophysiologic Disorder: Yes Hx Anxiety: Yes Hx Bipolar Disorder: Yes Hx Depression: Yes Hx Panic Symptoms: Yes Hx Substance Use: No - SURGICAL HISTORY Hx Cardiac Catheterization: Yes Hx Coronary Stent: No - ANESTHESIA Hx Anesthesia: Yes Hx Anesthesia Reactions: No Hx Malignant Hyperthermia: No Meds Allergies/Adverse Reactions: Allergies Allergy/AdvReac Type Severity Reaction Status Date / Time No Known Allergies Allergy Verified 12/30/17 13:22 - Medications Medications: Current Medications Sodium Chloride (Hypertonic Saline 3%) 500 mls @ 30 mls/hr IV .[id number] [facility] Last Admin: 02/15/18 08:32 Dose: 30 mls/hr Sodium Chloride (Sodium Chloride 0.9%) 1,000 mls @ 100 mls/hr IV .Q10H [facility] Insulin Human Lispro (Humalog Low) 0 units SC ACHS [facility]; Protocol Last Admin: 02/15/18 22:18 Dose: Not Given Levothyroxine Sodium (Synthroid) 25 mcg PO 0600 [facility] Last Admin: 02/15/18 06:14 Dose: 25 mcg Lorazepam (Ativan) 1 mg IVP Q6H PRN; Protocol PRN Reason: Seizure activity Metoprolol Tartrate (Lopressor) 25 mg PO BID [facility] Last Admin: 02/15/18 09:44 Dose: Not Given Nystatin (Nystop Topical Powder) 0 gm TOP BID [facility] Last Admin: 02/15/18 17:19 Dose: 1 applic Pantoprazole Sodium (Protonix Inj) 40 mg IVP DAILY [facility] Last Admin: 02/15/18 09:42 Dose: 40 mg Physical Exam - Constitutional Appears: Non-toxic, No Acute Distress - Eye Exam Eye Exam: absent: Scleral icterus Additional comments: opens R eye, keeping L closed - Neck Exam Neck exam: Negative for: Lymphadenopathy - Respiratory Exam Respiratory Exam: absent: Rales, Rhonchi, Wheezes, Respiratory Distress Additional comments: limited exam as patient not cooperative - Cardiovascular Exam Cardiovascular Exam: RRR, +S1, +S2. absent: Gallop, Rubs - GI/Abdominal Exam GI & Abdominal Exam: Soft. absent: Distended - Exam Exam: absent: Bladder Distension Additional comments: kitchen in place - Extremities Exam Additional comments: no leg edema; - Neurological Exam Neurological exam: Altered - Psychiatric Exam Psychiatric exam: Agitated - Skin Skin Exam: Normal Color, Warm Results - Vital Signs Recent Vital Signs: Last Vital Signs Temp 97.6 F 02/15/18 16:00 Pulse 78 02/15/18 20:40 Resp 20 02/15/18 20:40 BP 151/79 H 02/15/18 18:01 Pulse Ox 95 02/15/18 18:30 - Labs Result Diagrams: 02/16/18 05:00 02/16/18 05:00 Labs: Laboratory Results - last 24 hr 02/15/18 02/15/18 02/15/18 05:40 05:40 05:40 WBC RBC Hgb Hct MCV MCH MCHC RDW Plt Count MPV Gran % Lymph % (Auto) [place] % (Auto) Eos % (Auto) Baso % (Auto) Gran # Lymph # (Auto) [place] # (Auto) Eos # (Auto) Baso # (Auto) Sodium 115 L* Potassium 4.6 Chloride 79 L Carbon Dioxide 24 Anion Gap 16 BUN 8 Creatinine 0.4 L Est GFR ( Amer) > 60 Est GFR (Non-Af Amer) > 60 POC Glucose (mg/dL) Random Glucose 145 H Hemoglobin A1c 6.6 H Serum Osmolality 254 L Calcium 9.0 Phosphorus Magnesium Total Bilirubin AST ALT Alkaline Phosphatase Total Protein Albumin Globulin Albumin/Globulin Ratio Triglycerides 65 Cholesterol 216 H LDL Cholesterol Direct 136 H HDL Cholesterol 51 TSH 3rd Generation 3.33 Urine Osmolality Ur Random Sodium 02/15/18 02/15/18 02/15/18 08:20 08:20 08:30 WBC RBC Hgb Hct MCV MCH MCHC RDW Plt Count MPV Gran % Lymph % (Auto) [place] % (Auto) Eos % (Auto) Baso % (Auto) Gran # Lymph # (Auto) [place] # (Auto) Eos # (Auto) Baso # (Auto) Sodium Potassium Chloride Carbon Dioxide Anion Gap BUN Creatinine Est GFR ( Amer) Est GFR (Non-Af Amer) POC Glucose (mg/dL) 158 H Random Glucose Hemoglobin A1c Serum Osmolality Calcium Phosphorus Magnesium Total Bilirubin AST ALT Alkaline Phosphatase Total Protein Albumin Globulin Albumin/Globulin Ratio Triglycerides Cholesterol LDL Cholesterol Direct HDL Cholesterol TSH 3rd Generation Urine Osmolality 299 L Ur Random Sodium 89 02/15/18 02/15/18 02/15/18 08:40 11:00 11:00 WBC RBC Hgb Hct MCV MCH MCHC RDW Plt Count MPV Gran % Lymph % (Auto) [place] % (Auto) Eos % (Auto) Baso % (Auto) Gran # Lymph # (Auto) [place] # (Auto) Eos # (Auto) Baso # (Auto) Sodium 117 L* Potassium 4.4 Chloride 80 L Carbon Dioxide 26 Anion Gap 15 BUN 9 Creatinine 0.4 L Est GFR ( Amer) > 60 Est GFR (Non-Af Amer) > 60 POC Glucose (mg/dL) Random Glucose 197 H Hemoglobin A1c Serum Osmolality Calcium 8.8 Phosphorus Magnesium Total Bilirubin AST ALT Alkaline Phosphatase Total Protein Albumin Globulin Albumin/Globulin Ratio Triglycerides Cholesterol LDL Cholesterol Direct HDL Cholesterol TSH 3rd Generation Urine Osmolality 228 L Ur Random Sodium 18 02/15/18 02/15/18 02/15/18 11:50 12:30 16:20 WBC RBC Hgb Hct MCV MCH MCHC RDW Plt Count MPV Gran % Lymph % (Auto) [place] % (Auto) Eos % (Auto) Baso % (Auto) Gran # Lymph # (Auto) [place] # (Auto) Eos # (Auto) Baso # (Auto) Sodium 119 L* 120 L Potassium 4.2 3.8 Chloride 84 L 86 L Carbon Dioxide 25 23 Anion Gap 15 15 BUN 12 14 Creatinine 0.5 L 0.5 L Est GFR ( Amer) > 60 > 60 Est GFR (Non-Af Amer) > 60 > 60 POC Glucose (mg/dL) 102 Random Glucose 103 122 H Hemoglobin A1c Serum Osmolality Calcium 9.0 9.2 Phosphorus Magnesium Total Bilirubin AST ALT Alkaline Phosphatase Total Protein Albumin Globulin Albumin/Globulin Ratio Triglycerides Cholesterol LDL Cholesterol Direct HDL Cholesterol TSH 3rd Generation Urine Osmolality Ur Random Sodium 02/15/18 02/15/18 02/16/18 17:20 20:15 00:40 WBC RBC Hgb Hct MCV MCH MCHC RDW Plt Count MPV Gran % Lymph % (Auto) [place] % (Auto) Eos % (Auto) Baso % (Auto) Gran # Lymph # (Auto) [place] # (Auto) Eos # (Auto) Baso # (Auto) Sodium 120 L 117 L* Potassium 3.3 L 3.9 Chloride 83 L 84 L Carbon Dioxide 24 21 Anion Gap 15 17 BUN 12 10 Creatinine 0.5 L 0.4 L Est GFR ( Amer) > 60 > 60 Est GFR (Non-Af Amer) > 60 > 60 POC Glucose (mg/dL) 103 Random Glucose 141 H 141 H Hemoglobin A1c Serum Osmolality Calcium 8.9 8.6 Phosphorus Magnesium Total Bilirubin AST ALT Alkaline Phosphatase Total Protein Albumin Globulin Albumin/Globulin Ratio Triglycerides Cholesterol LDL Cholesterol Direct HDL Cholesterol TSH 3rd Generation Urine Osmolality Ur Random Sodium 02/16/18 02/16/18 05:00 05:00 WBC 7.6 RBC 5.07 Hgb 13.4 Hct 38.7 MCV 76.3 L MCH 26.4 MCHC 34.6 RDW 13.8 Plt Count 278 MPV 9.7 Gran % 79.9 H Lymph % (Auto) 14.2 L [place] % (Auto) 5.4 Eos % (Auto) 0.4 L Baso % (Auto) 0.1 Gran # 6.09 Lymph # (Auto) 1.1 L [place] # (Auto) 0.4 Eos # (Auto) 0.0 Baso # (Auto) 0.01 Sodium 119 L* Potassium 3.4 L Chloride 82 L Carbon Dioxide 27 Anion Gap 14 BUN 10 Creatinine 0.5 L Est GFR ( Amer) > 60 Est GFR (Non-Af Amer) > 60 POC Glucose (mg/dL) Random Glucose 108 Hemoglobin A1c Serum Osmolality Calcium 8.9 Phosphorus 3.2 Magnesium 1.6 L Total Bilirubin 1.1 AST 46 H D ALT 13 Alkaline Phosphatase 140 H Total Protein 8.4 H Albumin 4.2 Globulin 4.2 Albumin/Globulin Ratio 1.0 L Triglycerides Cholesterol LDL Cholesterol Direct HDL Cholesterol TSH 3rd Generation Urine Osmolality Ur Random Sodium Assessment & Plan (1) Hyponatremia Assessment and Plan: Severe hyponatremia with possible acute component given seizure episode; started on hypertonic saline overnight with rapid correction of serum sodium (24 hr goal of sodium correction achieved in 12 hr period); subsequent drop in urine osm and polyuria (making ~200 cc/hr UO in 4 hr period this morning) is consistent with a volume depletion component to hyponatremia; otherwise, recurrent history of 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; -agree with holding hypertonic saline; -temporarily giving free water flushes to stabilize over-correction of hyponatremia (patient ripped out IV); -no need for desmopressin as over-correction is mild; goal correction is 6-8 meq over 24 hrs; -avoid NSAIDS (can potentiate effect of ADH); -can restart IVF w/ NS at 75 cc/hr tomorrow am; -continue to monitor bmp q4h; Status: Acute Priority: High (2) Altered mental status Assessment and Plan: Seizure possibly due to acute component of hyponatremia; rapid increase in serum Na already achieved and patient without any further seizure episodes; therefore, we should continue to treat hyponatremia as subacute/chronic process; Status: Acute - Assessment and Plan (Free Text) Assessment: Critical care time spent > 35 minutes;
[2018-02-16] MEDS ORDERED: Magnesium Sulfate 2 gm/50 ml 2 GM/50 ML BAG IVPB ONE (07:03)
--- NOTE | 2018-02-16 07:39 | CP.CCUPN ---
<Sourav Lawson - Last Filed: 02/16/18 13:05> CCU Subjective - Physician Review Subjective (Free Text): Sourav Lawson PGY-1 Progress Note for ICU Patient seen and evaluated at bedside. No acute events reported overnight. Patient was sedated with Ativan due to agitation, and thereafter patient was taken for CT head. Patient in no acute distress, denies chest pain, palpitations, headaches, shortness of breath, dysuria, vision changes. CCU Objective - Vital Signs / Intake & Output Vital Signs (Last 4 hours): Vital Signs Temp Pulse Resp BP 02/16/18 07:07 61 16 02/16/18 07:06 68 16 02/16/18 07:05 66 18 02/16/18 07:04 63 16 02/16/18 07:03 69 16 02/16/18 07:02 68 16 02/16/18 07:01 63 16 02/16/18 07:00 107/54 L 02/16/18 06:59 64 16 02/16/18 06:58 69 17 02/16/18 06:57 72 16 02/16/18 06:56 69 16 02/16/18 06:55 63 16 02/16/18 06:54 67 16 02/16/18 06:53 65 16 02/16/18 06:52 63 16 02/16/18 06:51 67 16 02/16/18 06:50 63 16 02/16/18 06:49 65 16 02/16/18 06:48 65 16 02/16/18 06:47 64 15 02/16/18 06:46 65 16 02/16/18 06:45 63 16 02/16/18 06:44 71 17 02/16/18 06:43 64 16 02/16/18 06:42 63 15 02/16/18 06:41 66 16 02/16/18 06:40 64 16 02/16/18 06:39 65 16 02/16/18 06:38 67 16 02/16/18 06:37 62 15 02/16/18 06:36 65 16 02/16/18 06:35 61 16 02/16/18 06:34 66 16 02/16/18 06:33 66 16 02/16/18 06:32 63 16 02/16/18 06:31 62 15 02/16/18 06:30 66 15 02/16/18 06:29 63 16 02/16/18 06:28 67 15 02/16/18 06:27 67 18 02/16/18 06:26 67 16 02/16/18 06:25 62 16 02/16/18 06:24 61 16 02/16/18 06:23 59 L 15 02/16/18 06:22 64 17 02/16/18 06:21 61 15 02/16/18 06:20 62 16 02/16/18 06:19 65 16 02/16/18 06:18 62 13 02/16/18 04:00 97.6 F Intake and Output (Last 8hrs): Intake & Output 02/15/18 02/16/18 02/16/18 22:59 06:59 14:59 Intake Total 130 1200 Output Total 1150 1150 Balance -1020 50 Intake: IV 130 1200 0.9 130 1200 Output: Gastric Amount 50 50 Stomach 50 50 Urine 1100 1100 Urethral (Daniel) 1100 1100 Other: # Bowel Movements 0 0 - Physical Exam Head: Positive for: Atraumatic, Normocephalic Pupils: Positive for: PERRL Extroacular Muscles: Positive for: EOMI Conjunctiva: Positive for: Normal Mouth: Positive for: Moist Mucous Membranes Nose (External): Positive for: Other (dark brown dried blood noted in nares) Neck: Positive for: Normal Range of Motion Respiratory/Chest: Positive for: Clear to Auscultation, Decreased Breath Sounds. Negative for: Respiratory Distress, Accessory Muscle Use Cardiovascular: Positive for: Normal S1, S2. Negative for: Murmurs Abdomen: Positive for: Tenderness, Guarding, Feeding Tubes (PEG in place, dark brown drainage noted. Circumferential patch of erythema and dry skin surrounding tube.). Negative for: Peritoneal Signs Back: Positive for: Normal Inspection Upper Extremity: Positive for: Normal Inspection. Negative for: Cyanosis, Edema Lower Extremity: Positive for: Normal Inspection. Negative for: Edema Neurological: Positive for: GCS=15 Skin: Positive for: Warm, Dry, Normal Color. Negative for: Rashes Psychiatric: Positive for: Alert, Oriented x 3. Negative for: Agitated (resolved) - Medications Active Medications: Active Medications Generic Name Dose Route Start Last Admin Trade Name Freq PRN Reason Stop Dose Admin Atorvastatin Calcium 10 mg 02/16/18 17:00 Lipitor PO DIN LAUREN Sodium Chloride 500 mls @ 30 mls/hr 02/15/18 08:07 02/15/18 08:32 Hypertonic Saline 3% IV 30 mls/hr .[id number] LAUREN Administration Potassium Chloride 40 meq/ 1,020 mls @ 75 mls/hr 02/16/18 07:01 Sodium Chloride IV .[id number] LAUREN Magnesium Sulfate 2 gm in 50 mls @ 50 mls/hr 02/16/18 07:03 Magnesium Sulfate 2 Gm/50 Ml Water IVPB 02/16/18 08:02 ONCE ONE Insulin Human Lispro 0 units 02/15/18 07:30 02/15/18 22:18 Humalog Low SC Not Given ACHS LAUREN Protocol Levothyroxine Sodium 25 mcg 02/15/18 06:00 02/15/18 06:14 Synthroid PO 25 mcg 0600 LAUREN Administration Lorazepam 1 mg 02/15/18 11:35 Ativan IVP Q6H PRN Seizure activity Protocol Metoprolol Tartrate 25 mg 02/15/18 10:00 02/15/18 09:44 Lopressor PO Not Given BID LAUREN Nystatin 0 gm 02/15/18 10:00 02/15/18 17:19 Nystop Topical Powder TOP 1 applic BID LAUREN Administration Pantoprazole Sodium 40 mg 02/15/18 10:00 02/15/18 09:42 Protonix Inj IVP 40 mg DAILY LAUREN Administration - Patient Studies Lab Studies: Lab Studies 02/16/18 02/16/18 02/16/18 Range/Units 05:00 05:00 00:40 WBC 7.6 (4.5-11.0) 10^3/uL RBC 5.07 (3.5-6.1) 10^6/uL Hgb 13.4 (12.0-16.0) g/dL Hct 38.7 (36.0-48.0) % MCV 76.3 L (80.0-105.0) fl MCH 26.4 (25.0-35.0) pg MCHC 34.6 (31.0-37.0) g/dl RDW 13.8 (11.5-14.5) % Plt Count 278 (120.0-450.0) 10^3/uL MPV 9.7 (7.0-11.0) fl Gran % 79.9 H (50.0-68.0) % Lymph % (Auto) 14.2 L (22.0-35.0) % [place] % (Auto) 5.4 (1.0-6.0) % Eos % (Auto) 0.4 L (1.5-5.0) % Baso % (Auto) 0.1 (0.0-3.0) % Gran # 6.09 (1.4-6.5) Lymph # (Auto) 1.1 L (1.2-3.4) [place] # (Auto) 0.4 (0.1-0.6) Eos # (Auto) 0.0 (0.0-0.7) Baso # (Auto) 0.01 (0.0-2.0) K/mm3 Sodium 119 L* 117 L* (132-148) mmol/L Potassium 3.4 L 3.9 (3.6-5.0) mmol/L Chloride 82 L 84 L (98-107) mmol/L Carbon Dioxide 27 21 (21-33) mmol/L Anion Gap 14 17 (10-20) BUN 10 10 (7-21) mg/dL Creatinine 0.5 L 0.4 L (0.7-1.2) mg/dl Est GFR ( Amer) > 60 > 60 Est GFR (Non-Af Amer) > 60 > 60 POC Glucose (mg/dL) (65-110) mg/dL Random Glucose 108 141 H (70-110) mg/dL Hemoglobin A1c (4.2-6.5) % Calcium 8.9 8.6 (8.4-10.5) mg/dL Phosphorus 3.2 (2.5-4.5) mg/dL Magnesium 1.6 L (1.7-2.2) mg/dL Total Bilirubin 1.1 (0.2-1.3) mg/dL AST 46 H D (14-36) U/L ALT 13 (7-56) U/L Alkaline Phosphatase 140 H (38-126) U/L Total Protein 8.4 H (5.8-8.3) g/dL Albumin 4.2 (3.0-4.8) g/dL Globulin 4.2 gm/dL Albumin/Globulin Ratio 1.0 L (1.1-1.8) Urine Osmolality (300-1000) mosm/kg Ur Random Sodium meq/L 02/15/18 02/15/18 02/15/18 Range/Units 20:15 17:20 16:20 WBC (4.5-11.0) 10^3/uL RBC (3.5-6.1) 10^6/uL Hgb (12.0-16.0) g/dL Hct (36.0-48.0) % MCV (80.0-105.0) fl MCH (25.0-35.0) pg MCHC (31.0-37.0) g/dl RDW (11.5-14.5) % Plt Count (120.0-450.0) 10^3/uL MPV (7.0-11.0) fl Gran % (50.0-68.0) % Lymph % (Auto) (22.0-35.0) % [place] % (Auto) (1.0-6.0) % Eos % (Auto) (1.5-5.0) % Baso % (Auto) (0.0-3.0) % Gran # (1.4-6.5) Lymph # (Auto) (1.2-3.4) [place] # (Auto) (0.1-0.6) Eos # (Auto) (0.0-0.7) Baso # (Auto) (0.0-2.0) K/mm3 Sodium 120 L 120 L (132-148) mmol/L Potassium 3.3 L 3.8 (3.6-5.0) mmol/L Chloride 83 L 86 L (98-107) mmol/L Carbon Dioxide 24 23 (21-33) mmol/L Anion Gap 15 15 (10-20) BUN 12 14 (7-21) mg/dL Creatinine 0.5 L 0.5 L (0.7-1.2) mg/dl Est GFR ( Amer) > 60 > 60 Est GFR (Non-Af Amer) > 60 > 60 POC Glucose (mg/dL) 103 (65-110) mg/dL Random Glucose 141 H 122 H (70-110) mg/dL Hemoglobin A1c (4.2-6.5) % Calcium 8.9 9.2 (8.4-10.5) mg/dL Phosphorus (2.5-4.5) mg/dL Magnesium (1.7-2.2) mg/dL Total Bilirubin (0.2-1.3) mg/dL AST (14-36) U/L ALT (7-56) U/L Alkaline Phosphatase (38-126) U/L Total Protein (5.8-8.3) g/dL Albumin (3.0-4.8) g/dL Globulin gm/dL Albumin/Globulin Ratio (1.1-1.8) Urine Osmolality (300-1000) mosm/kg Ur Random Sodium meq/L 02/15/18 02/15/18 02/15/18 Range/Units 12:30 11:50 11:00 WBC (4.5-11.0) 10^3/uL RBC (3.5-6.1) 10^6/uL Hgb (12.0-16.0) g/dL Hct (36.0-48.0) % MCV (80.0-105.0) fl MCH (25.0-35.0) pg MCHC (31.0-37.0) g/dl RDW (11.5-14.5) % Plt Count (120.0-450.0) 10^3/uL MPV (7.0-11.0) fl Gran % (50.0-68.0) % Lymph % (Auto) (22.0-35.0) % [place] % (Auto) (1.0-6.0) % Eos % (Auto) (1.5-5.0) % Baso % (Auto) (0.0-3.0) % Gran # (1.4-6.5) Lymph # (Auto) (1.2-3.4) [place] # (Auto) (0.1-0.6) Eos # (Auto) (0.0-0.7) Baso # (Auto) (0.0-2.0) K/mm3 Sodium 119 L* (132-148) mmol/L Potassium 4.2 (3.6-5.0) mmol/L Chloride 84 L (98-107) mmol/L Carbon Dioxide 25 (21-33) mmol/L Anion Gap 15 (10-20) BUN 12 (7-21) mg/dL Creatinine 0.5 L (0.7-1.2) mg/dl Est GFR ( Amer) > 60 Est GFR (Non-Af Amer) > 60 POC Glucose (mg/dL) 102 (65-110) mg/dL Random Glucose 103 (70-110) mg/dL Hemoglobin A1c (4.2-6.5) % Calcium 9.0 (8.4-10.5) mg/dL Phosphorus (2.5-4.5) mg/dL Magnesium (1.7-2.2) mg/dL Total Bilirubin (0.2-1.3) mg/dL AST (14-36) U/L ALT (7-56) U/L Alkaline Phosphatase (38-126) U/L Total Protein (5.8-8.3) g/dL Albumin (3.0-4.8) g/dL Globulin gm/dL Albumin/Globulin Ratio (1.1-1.8) Urine Osmolality (300-1000) mosm/kg Ur Random Sodium 18 meq/L 02/15/18 02/15/18 02/15/18 Range/Units 11:00 08:40 08:30 WBC (4.5-11.0) 10^3/uL RBC (3.5-6.1) 10^6/uL Hgb (12.0-16.0) g/dL Hct (36.0-48.0) % MCV (80.0-105.0) fl MCH (25.0-35.0) pg MCHC (31.0-37.0) g/dl RDW (11.5-14.5) % Plt Count (120.0-450.0) 10^3/uL MPV (7.0-11.0) fl Gran % (50.0-68.0) % Lymph % (Auto) (22.0-35.0) % [place] % (Auto) (1.0-6.0) % Eos % (Auto) (1.5-5.0) % Baso % (Auto) (0.0-3.0) % Gran # (1.4-6.5) Lymph # (Auto) (1.2-3.4) [place] # (Auto) (0.1-0.6) Eos # (Auto) (0.0-0.7) Baso # (Auto) (0.0-2.0) K/mm3 Sodium 117 L* (132-148) mmol/L Potassium 4.4 (3.6-5.0) mmol/L Chloride 80 L (98-107) mmol/L Carbon Dioxide 26 (21-33) mmol/L Anion Gap 15 (10-20) BUN 9 (7-21) mg/dL Creatinine 0.4 L (0.7-1.2) mg/dl Est GFR ( Amer) > 60 Est GFR (Non-Af Amer) > 60 POC Glucose (mg/dL) 158 H (65-110) mg/dL Random Glucose 197 H (70-110) mg/dL Hemoglobin A1c (4.2-6.5) % Calcium 8.8 (8.4-10.5) mg/dL Phosphorus (2.5-4.5) mg/dL Magnesium (1.7-2.2) mg/dL Total Bilirubin (0.2-1.3) mg/dL AST (14-36) U/L ALT (7-56) U/L Alkaline Phosphatase (38-126) U/L Total Protein (5.8-8.3) g/dL Albumin (3.0-4.8) g/dL Globulin gm/dL Albumin/Globulin Ratio (1.1-1.8) Urine Osmolality 228 L (300-1000) mosm/kg Ur Random Sodium meq/L 02/15/18 02/15/18 02/15/18 Range/Units 08:20 08:20 05:40 WBC (4.5-11.0) 10^3/uL RBC (3.5-6.1) 10^6/uL Hgb (12.0-16.0) g/dL Hct (36.0-48.0) % MCV (80.0-105.0) fl MCH (25.0-35.0) pg MCHC (31.0-37.0) g/dl RDW (11.5-14.5) % Plt Count (120.0-450.0) 10^3/uL MPV (7.0-11.0) fl Gran % (50.0-68.0) % Lymph % (Auto) (22.0-35.0) % [place] % (Auto) (1.0-6.0) % Eos % (Auto) (1.5-5.0) % Baso % (Auto) (0.0-3.0) % Gran # (1.4-6.5) Lymph # (Auto) (1.2-3.4) [place] # (Auto) (0.1-0.6) Eos # (Auto) (0.0-0.7) Baso # (Auto) (0.0-2.0) K/mm3 Sodium (132-148) mmol/L Potassium (3.6-5.0) mmol/L Chloride (98-107) mmol/L Carbon Dioxide (21-33) mmol/L Anion Gap (10-20) BUN (7-21) mg/dL Creatinine (0.7-1.2) mg/dl Est GFR ( Amer) Est GFR (Non-Af Amer) POC Glucose (mg/dL) (65-110) mg/dL Random Glucose (70-110) mg/dL Hemoglobin A1c 6.6 H (4.2-6.5) % Calcium (8.4-10.5) mg/dL Phosphorus (2.5-4.5) mg/dL Magnesium (1.7-2.2) mg/dL Total Bilirubin (0.2-1.3) mg/dL AST (14-36) U/L ALT (7-56) U/L Alkaline Phosphatase (38-126) U/L Total Protein (5.8-8.3) g/dL Albumin (3.0-4.8) g/dL Globulin gm/dL Albumin/Globulin Ratio (1.1-1.8) Urine Osmolality 299 L (300-1000) mosm/kg Ur Random Sodium 89 meq/L Laboratory Results - last 24 hr 02/15/18 02/15/18 02/15/18 05:40 08:20 08:20 WBC RBC Hgb Hct MCV MCH MCHC RDW Plt Count MPV Gran % Lymph % (Auto) [place] % (Auto) Eos % (Auto) Baso % (Auto) Gran # Lymph # (Auto) [place] # (Auto) Eos # (Auto) Baso # (Auto) Sodium Potassium Chloride Carbon Dioxide Anion Gap BUN Creatinine Est GFR ( Amer) Est GFR (Non-Af Amer) POC Glucose (mg/dL) Random Glucose Hemoglobin A1c 6.6 H Calcium Phosphorus Magnesium Total Bilirubin AST ALT Alkaline Phosphatase Total Protein Albumin Globulin Albumin/Globulin Ratio Urine Osmolality 299 L Ur Random Sodium 89 02/15/18 02/15/18 02/15/18 08:30 08:40 11:00 WBC RBC Hgb Hct MCV MCH MCHC RDW Plt Count MPV Gran % Lymph % (Auto) [place] % (Auto) Eos % (Auto) Baso % (Auto) Gran # Lymph # (Auto) [place] # (Auto) Eos # (Auto) Baso # (Auto) Sodium 117 L* Potassium 4.4 Chloride 80 L Carbon Dioxide 26 Anion Gap 15 BUN 9 Creatinine 0.4 L Est GFR ( Amer) > 60 Est GFR (Non-Af Amer) > 60 POC Glucose (mg/dL) 158 H Random Glucose 197 H Hemoglobin A1c Calcium 8.8 Phosphorus Magnesium Total Bilirubin AST ALT Alkaline Phosphatase Total Protein Albumin Globulin Albumin/Globulin Ratio Urine Osmolality 228 L Ur Random Sodium 02/15/18 02/15/18 02/15/18 11:00 11:50 12:30 WBC RBC Hgb Hct MCV MCH MCHC RDW Plt Count MPV Gran % Lymph % (Auto) [place] % (Auto) Eos % (Auto) Baso % (Auto) Gran # Lymph # (Auto) [place] # (Auto) Eos # (Auto) Baso # (Auto) Sodium 119 L* Potassium 4.2 Chloride 84 L Carbon Dioxide 25 Anion Gap 15 BUN 12 Creatinine 0.5 L Est GFR ( Amer) > 60 Est GFR (Non-Af Amer) > 60 POC Glucose (mg/dL) 102 Random Glucose 103 Hemoglobin A1c Calcium 9.0 Phosphorus Magnesium Total Bilirubin AST ALT Alkaline Phosphatase Total Protein Albumin Globulin Albumin/Globulin Ratio Urine Osmolality Ur Random Sodium 18 02/15/18 02/15/18 02/15/18 16:20 17:20 20:15 WBC RBC Hgb Hct MCV MCH MCHC RDW Plt Count MPV Gran % Lymph % (Auto) [place] % (Auto) Eos % (Auto) Baso % (Auto) Gran # Lymph # (Auto) [place] # (Auto) Eos # (Auto) Baso # (Auto) Sodium 120 L 120 L Potassium 3.8 3.3 L Chloride 86 L 83 L Carbon Dioxide 23 24 Anion Gap 15 15 BUN 14 12 Creatinine 0.5 L 0.5 L Est GFR ( Amer) > 60 > 60 Est GFR (Non-Af Amer) > 60 > 60 POC Glucose (mg/dL) 103 Random Glucose 122 H 141 H Hemoglobin A1c Calcium 9.2 8.9 Phosphorus Magnesium Total Bilirubin AST ALT Alkaline Phosphatase Total Protein Albumin Globulin Albumin/Globulin Ratio Urine Osmolality Ur Random Sodium 02/16/18 02/16/18 02/16/18 00:40 05:00 05:00 WBC 7.6 RBC 5.07 Hgb 13.4 Hct 38.7 MCV 76.3 L MCH 26.4 MCHC 34.6 RDW 13.8 Plt Count 278 MPV 9.7 Gran % 79.9 H Lymph % (Auto) 14.2 L [place] % (Auto) 5.4 Eos % (Auto) 0.4 L Baso % (Auto) 0.1 Gran # 6.09 Lymph # (Auto) 1.1 L [place] # (Auto) 0.4 Eos # (Auto) 0.0 Baso # (Auto) 0.01 Sodium 117 L* 119 L* Potassium 3.9 3.4 L Chloride 84 L 82 L Carbon Dioxide 21 27 Anion Gap 17 14 BUN 10 10 Creatinine 0.4 L 0.5 L Est GFR ( Amer) > 60 > 60 Est GFR (Non-Af Amer) > 60 > 60 POC Glucose (mg/dL) Random Glucose 141 H 108 Hemoglobin A1c Calcium 8.6 8.9 Phosphorus 3.2 Magnesium 1.6 L Total Bilirubin 1.1 AST 46 H D ALT 13 Alkaline Phosphatase 140 H Total Protein 8.4 H Albumin 4.2 Globulin 4.2 Albumin/Globulin Ratio 1.0 L Urine Osmolality Ur Random Sodium Radiology Impressions: Radiology Impressions Abdomen/Pelvis CT 02/14/18 22:31 IMPRESSION: No acute findings related to/ accounting for the clinical presentation. Additional benign and/or incidental findings described above. No significant interval change compared to the prior examination(s). Concordant results (preliminary interpretation) provided by ENRRIQUE ALLEN. Procedure Completed: 02:35. Preliminary Report: Dictated and Authenticated: 04:18. Final Interpretation: 08:55. Chest X-Ray 02/14/18 22:31 IMPRESSION: No active disease. Fingerstick Blood Sugar Results: 103 Review of Systems - Review of Systems Review of Systems: 12 point ROS completed and negative except as described in HPI. Assessment/Plan - Assessment and Plan (Free Text) Assessment: Patient is a 67 F with PMH of HTN, DM, Hypothyroidism, Hyponatremia, cachexia, odynophagia, PEG tube placement who was admitted for evaluation and treatment of nausea, vomiting, and AMS. Patient experienced seizure while in the ED and was noted to be severely hyponatremic. Patient transferred to ICU for closer monitoring. Patient was found to be agitated and restraints were necessary after she pulled out her IV lines. Ativan was given last night. Neurology AMS, Seizure - AMS most likely secondary to hyponatremia and post-ictal state - seizure precautions - Neuro Checks q2 hrs - discontinued hypertonic saline rate to 30 cc/hr. Currently IVF NS @75 cc/hr - check BMP q4h for Na - most recent 121. Continue BMP q4 - Insert PICC line - Neurology Consulted - Dr. 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 Urine NA 104>18. Urine K 18.5. - Monitor volume status - BMP q4hr - Hold NS @ 75 c/hr and re-evaluate after upcoming BMP - monitor Ins and Outs, Daniel in place. Abundant urine output. - Mg and K repleted - Nephrology consulted - further recs appreciated Cardiovascular Hx of HTN - EKG Sinus Bradycardia HR 55 bpm, QTc 447ms - Continue to monitor blood pressure off Lopressor - Echo May 2017- LVEF 59%, left ventricular function normal Hypotension - keep MAP > 65 Respiratory - CXR (02/14) shows no active disease - Maintain O2 saturation > 90% GI PEG tube malfunctioning, Nausea, Vomiting, Odynophagia - 02/14/18 CT Abdomen Pelvis with IV contrast- proper PEG tube placement, distended stomach and bladder, lumbar vertebral body compression fractures, Focal cortical scarring mid and lower pole regions right kidney - PEG tube malfunction with carbonated fluid flushing - PEG tube suction to prevent aspiration - NPO, f/u speech eval - PPx with Protonix 40 IV daily - GI consulted- Dr. Patterson - appreciate recommendations Endo Hypothyroidism - Continue home Synthroid 25mcg PO daily - Check TSH Diabetes Mellitus II - Sliding scale insulin - Check Hgb A1C - Daily Accuchecks - Diabetic Diet - Lipitor 10 Integumentary Fungal Rash - continue Topical Nystatin powder topically bid Heme DVT - continue SCDs Dispo: F/u recs Patient seen, case reviewed and plan approved by Dr. Yousuf Pan. Sourav Lawson, PGY-1 <Tramaine Pan - Last Filed: 02/16/18 17:35> CCU Objective - Vital Signs / Intake & Output Vital Signs (Last 4 hours): Vital Signs Pulse 02/16/18 14:31 66 Intake and Output (Last 8hrs): Intake & Output 02/16/18 02/16/18 02/16/18 06:59 14:59 22:59 Intake Total 1200 Output Total 1150 Balance 50 Intake: IV 1200 0.9 1200 Output: Gastric Amount 50 Stomach 50 Urine 1100 Urethral (Daniel) 1100 Other: # Bowel Movements 0 - Medications Active Medications: Active Medications Generic Name Dose Route Start Last Admin Trade Name Freq PRN Reason Stop Dose Admin Atorvastatin Calcium 10 mg 02/16/18 17:00 Lipitor PO DIN LAUREN Bacitracin 0 ea 02/16/18 18:00 Bacitracin TOP BID LAUREN Sodium Chloride 500 mls @ 30 mls/hr 02/15/18 08:07 02/15/18 08:32 Hypertonic Saline 3% IV 30 mls/hr .[id number] LAUREN Administration Potassium Chloride 40 meq/ 1,020 mls @ 75 mls/hr 02/16/18 07:01 02/16/18 10:13 Sodium Chloride IV 75 mls/hr .[id number] LAUREN Administration Insulin Human Lispro 0 units 02/15/18 07:30 02/16/18 12:38 Humalog Low SC Not Given ACHS LAUREN Protocol Levothyroxine Sodium 25 mcg 02/15/18 06:00 02/16/18 12:39 Synthroid PO Not Given 0600 LAUREN Lorazepam 1 mg 02/15/18 11:35 02/15/18 22:24 Ativan IVP 1 mg Q6H PRN Administration Seizure activity Protocol Metoprolol Tartrate 25 mg 02/15/18 10:00 12/28/18 09:44 Lopressor PO Not Given BID LAUREN Nystatin 0 gm 02/15/18 10:00 02/16/18 10:13 Nystop Topical Powder TOP 1 applic BID LAUREN Administration Pantoprazole Sodium 40 mg 02/15/18 10:00 02/16/18 10:11 Protonix Inj IVP 40 mg DAILY LAUREN Administration - Patient Studies Lab Studies: Microbiology Studies 02/15/18 07:00 MRSA Culture (Admit) - Final Naris MRSA NOT DETECTED 02/15/18 03:37 Urine Culture - Final Urine,Daniel No Growth (<1,000 CFU/ML) Lab Studies 02/16/18 02/16/18 02/16/18 Range/Units 14:00 10:00 07:04 WBC (4.5-11.0) 10^3/uL RBC (3.5-6.1) 10^6/uL Hgb (12.0-16.0) g/dL Hct (36.0-48.0) % MCV (80.0-105.0) fl MCH (25.0-35.0) pg MCHC (31.0-37.0) g/dl RDW (11.5-14.5) % Plt Count (120.0-450.0) 10^3/uL MPV (7.0-11.0) fl Gran % (50.0-68.0) % Lymph % (Auto) (22.0-35.0) % [place] % (Auto) (1.0-6.0) % Eos % (Auto) (1.5-5.0) % Baso % (Auto) (0.0-3.0) % Gran # (1.4-6.5) Lymph # (Auto) (1.2-3.4) [place] # (Auto) (0.1-0.6) Eos # (Auto) (0.0-0.7) Baso # (Auto) (0.0-2.0) K/mm3 Sodium 122 L 121 L (132-148) mmol/L Potassium 3.1 L 3.9 (3.6-5.0) mmol/L Chloride 86 L 86 L (98-107) mmol/L Carbon Dioxide 25 26 (21-33) mmol/L Anion Gap 14 13 (10-20) BUN 10 10 (7-21) mg/dL Creatinine 0.5 L 0.4 L (0.7-1.2) mg/dl Est GFR ( Amer) > 60 > 60 Est GFR (Non-Af Amer) > 60 > 60 POC Glucose (mg/dL) (65-110) mg/dL Random Glucose 110 93 (70-110) mg/dL Calcium 9.0 8.9 (8.4-10.5) mg/dL Phosphorus (2.5-4.5) mg/dL Magnesium (1.7-2.2) mg/dL Total Bilirubin (0.2-1.3) mg/dL AST (14-36) U/L ALT (7-56) U/L Alkaline Phosphatase (38-126) U/L Total Protein (5.8-8.3) g/dL Albumin (3.0-4.8) g/dL Globulin gm/dL Albumin/Globulin Ratio (1.1-1.8) Urine Osmolality 318 (300-1000) mosm/kg Ur Random Sodium 109 meq/L 02/16/18 02/16/18 02/16/18 Range/Units 05:00 05:00 00:40 WBC 7.6 (4.5-11.0) 10^3/uL RBC 5.07 (3.5-6.1) 10^6/uL Hgb 13.4 (12.0-16.0) g/dL Hct 38.7 (36.0-48.0) % MCV 76.3 L (80.0-105.0) fl MCH 26.4 (25.0-35.0) pg MCHC 34.6 (31.0-37.0) g/dl RDW 13.8 (11.5-14.5) % Plt Count 278 (120.0-450.0) 10^3/uL MPV 9.7 (7.0-11.0) fl Gran % 79.9 H (50.0-68.0) % Lymph % (Auto) 14.2 L (22.0-35.0) % [place] % (Auto) 5.4 (1.0-6.0) % Eos % (Auto) 0.4 L (1.5-5.0) % Baso % (Auto) 0.1 (0.0-3.0) % Gran # 6.09 (1.4-6.5) Lymph # (Auto) 1.1 L (1.2-3.4) [place] # (Auto) 0.4 (0.1-0.6) Eos # (Auto) 0.0 (0.0-0.7) Baso # (Auto) 0.01 (0.0-2.0) K/mm3 Sodium 119 L* 117 L* (132-148) mmol/L Potassium 3.4 L 3.9 (3.6-5.0) mmol/L Chloride 82 L 84 L (98-107) mmol/L Carbon Dioxide 27 21 (21-33) mmol/L Anion Gap 14 17 (10-20) BUN 10 10 (7-21) mg/dL Creatinine 0.5 L 0.4 L (0.7-1.2) mg/dl Est GFR ( Amer) > 60 > 60 Est GFR (Non-Af Amer) > 60 > 60 POC Glucose (mg/dL) (65-110) mg/dL Random Glucose 108 141 H (70-110) mg/dL Calcium 8.9 8.6 (8.4-10.5) mg/dL Phosphorus 3.2 (2.5-4.5) mg/dL Magnesium 1.6 L (1.7-2.2) mg/dL Total Bilirubin 1.1 (0.2-1.3) mg/dL AST 46 H D (14-36) U/L ALT 13 (7-56) U/L Alkaline Phosphatase 140 H (38-126) U/L Total Protein 8.4 H (5.8-8.3) g/dL Albumin 4.2 (3.0-4.8) g/dL Globulin 4.2 gm/dL Albumin/Globulin Ratio 1.0 L (1.1-1.8) Urine Osmolality (300-1000) mosm/kg Ur Random Sodium meq/L 02/15/18 02/15/18 Range/Units 20:15 17:20 WBC (4.5-11.0) 10^3/uL RBC (3.5-6.1) 10^6/uL Hgb (12.0-16.0) g/dL Hct (36.0-48.0) % MCV (80.0-105.0) fl MCH (25.0-35.0) pg MCHC (31.0-37.0) g/dl RDW (11.5-14.5) % Plt Count (120.0-450.0) 10^3/uL MPV (7.0-11.0) fl Gran % (50.0-68.0) % Lymph % (Auto) (22.0-35.0) % [place] % (Auto) (1.0-6.0) % Eos % (Auto) (1.5-5.0) % Baso % (Auto) (0.0-3.0) % Gran # (1.4-6.5) Lymph # (Auto) (1.2-3.4) [place] # (Auto) (0.1-0.6) Eos # (Auto) (0.0-0.7) Baso # (Auto) (0.0-2.0) K/mm3 Sodium 120 L (132-148) mmol/L Potassium 3.3 L (3.6-5.0) mmol/L Chloride 83 L (98-107) mmol/L Carbon Dioxide 24 (21-33) mmol/L Anion Gap 15 (10-20) BUN 12 (7-21) mg/dL Creatinine 0.5 L (0.7-1.2) mg/dl Est GFR ( Amer) > 60 Est GFR (Non-Af Amer) > 60 POC Glucose (mg/dL) 103 (65-110) mg/dL Random Glucose 141 H (70-110) mg/dL Calcium 8.9 (8.4-10.5) mg/dL Phosphorus (2.5-4.5) mg/dL Magnesium (1.7-2.2) mg/dL Total Bilirubin (0.2-1.3) mg/dL AST (14-36) U/L ALT (7-56) U/L Alkaline Phosphatase (38-126) U/L Total Protein (5.8-8.3) g/dL Albumin (3.0-4.8) g/dL Globulin gm/dL Albumin/Globulin Ratio (1.1-1.8) Urine Osmolality (300-1000) mosm/kg Ur Random Sodium meq/L Laboratory Results - last 24 hr 02/15/18 02/15/18 02/16/18 17:20 20:15 00:40 WBC RBC Hgb Hct MCV MCH MCHC RDW Plt Count MPV Gran % Lymph % (Auto) [place] % (Auto) Eos % (Auto) Baso % (Auto) Gran # Lymph # (Auto) [place] # (Auto) Eos # (Auto) Baso # (Auto) Sodium 120 L 117 L* Potassium 3.3 L 3.9 Chloride 83 L 84 L Carbon Dioxide 24 21 Anion Gap 15 17 BUN 12 10 Creatinine 0.5 L 0.4 L Est GFR ( Amer) > 60 > 60 Est GFR (Non-Af Amer) > 60 > 60 POC Glucose (mg/dL) 103 Random Glucose 141 H 141 H Calcium 8.9 8.6 Phosphorus Magnesium Total Bilirubin AST ALT Alkaline Phosphatase Total Protein Albumin Globulin Albumin/Globulin Ratio Urine Osmolality Ur Random Sodium 02/16/18 02/16/18 02/16/18 05:00 05:00 07:04 WBC 7.6 RBC 5.07 Hgb 13.4 Hct 38.7 MCV 76.3 L MCH 26.4 MCHC 34.6 RDW 13.8 Plt Count 278 MPV 9.7 Gran % 79.9 H Lymph % (Auto) 14.2 L [place] % (Auto) 5.4 Eos % (Auto) 0.4 L Baso % (Auto) 0.1 Gran # 6.09 Lymph # (Auto) 1.1 L [place] # (Auto) 0.4 Eos # (Auto) 0.0 Baso # (Auto) 0.01 Sodium 119 L* Potassium 3.4 L Chloride 82 L Carbon Dioxide 27 Anion Gap 14 BUN 10 Creatinine 0.5 L Est GFR ( Amer) > 60 Est GFR (Non-Af Amer) > 60 POC Glucose (mg/dL) Random Glucose 108 Calcium 8.9 Phosphorus 3.2 Magnesium 1.6 L Total Bilirubin 1.1 AST 46 H D ALT 13 Alkaline Phosphatase 140 H Total Protein 8.4 H Albumin 4.2 Globulin 4.2 Albumin/Globulin Ratio 1.0 L Urine Osmolality 318 Ur Random Sodium 109 02/16/18 02/16/18 10:00 14:00 WBC RBC Hgb Hct MCV MCH MCHC RDW Plt Count MPV Gran % Lymph % (Auto) [place] % (Auto) Eos % (Auto) Baso % (Auto) Gran # Lymph # (Auto) [place] # (Auto) Eos # (Auto) Baso # (Auto) Sodium 121 L 122 L Potassium 3.9 3.1 L Chloride 86 L 86 L Carbon Dioxide 26 25 Anion Gap 13 14 BUN 10 10 Creatinine 0.4 L 0.5 L Est GFR ( Amer) > 60 > 60 Est GFR (Non-Af Amer) > 60 > 60 POC Glucose (mg/dL) Random Glucose 93 110 Calcium 8.9 9.0 Phosphorus Magnesium Total Bilirubin AST ALT Alkaline Phosphatase Total Protein Albumin Globulin Albumin/Globulin Ratio Urine Osmolality Ur Random Sodium Radiology Impressions: Radiology Impressions Head CT 02/15/18 05:32 IMPRESSION: No acute intracranial pathology. Age-related changes. No significant interval change. Addendum Addendum: 02/16/18 17:35 ICU Attending Addendum Patient seen and examined. Case reviewed on round with housestaff. Agree with resident note above with the following additions/exceptions: 67 F with PMH of HTN, DM, Hypothyroidism, Hyponatremia, cachexia, odynophagia, s/p PEG tube placement admitted with severe hypoNA and possible seizures. Intially tx with 3%NS then stopped. Sodium intially incr, then dropped so was started on NS @ 75cc/hr. Nephro is onboard managing likely SIADH Rest of care as above Tramaine Pan MD Pulmonary Critical Care and Sleep Medicine
[2018-02-16 08:32] LABS: OSMOLALITY,URINE 318 mosm/kg (300-1000)
[2018-02-16] MEDS: Insulin Lispro (humaLOG) LOW Coverage SC SCH ×4 (10:13→22:07)
[2018-02-16] MEDS: Nystatin 100,000 Units/gm Topical Pow(15 gm) TOP SCH ×2 (10:13→17:57)
[2018-02-16 10:24] LABS: BLOOD UREA NITROGEN 10 mg/dL (7-21); CALCIUM 8.9 mg/dL (8.4-10.5); GFR NON-AFRICAN AMERICAN > 60
--- NOTE | 2018-02-16 11:40 | CT ---
Date of service: 02/16/2018 PROCEDURE: CT HEAD WITHOUT CONTRAST. HISTORY: hyponatremia COMPARISON: CT head dated 07/24/2017 TECHNIQUE: Axial computed tomography images were obtained through the head/brain without intravenous contrast. Radiation dose: Total exam DLP = 722.35 mGy-cm. This CT exam was performed using one or more of the following dose reduction techniques: Automated exposure control, adjustment of the mA and/or kV according to patient size, and/or use of iterative reconstruction technique. FINDINGS: HEMORRHAGE: No intracranial hemorrhage. BRAIN: No mass effect or edema. Atrophy. Chronic microvascular ischemic changes. VENTRICLES: Unremarkable. No hydrocephalus. CALVARIUM: Unremarkable. PARANASAL SINUSES: Unremarkable as visualized. No significant inflammatory changes. MASTOID AIR CELLS: Unremarkable as visualized. No inflammatory changes. OTHER FINDINGS: None. IMPRESSION: No acute intracranial pathology. Age-related changes. No significant interval change.
[2018-02-16] MEDS: Levothyroxine 25 MCG TAB PO SCH (12:39)
[2018-02-16 14:32] LABS: BLOOD UREA NITROGEN 10 mg/dL (7-21); GFR NON-AFRICAN AMERICAN > 60
[2018-02-16] MEDS ORDERED: Potassium Chloride 20 mEq ER Tab PO STA (15:00)
--- NOTE | 2018-02-16 15:44 | CP.PCM.PN ---
<Christian Isaac - Last Filed: 02/16/18 15:30> Subjective - Date & Time of Evaluation Date of Evaluation: 02/16/18 Time of Evaluation: 09:00 - Subjective Subjective: PGY-2 medicine progress note for Dr Resendez No acute events noted overnight. Patient is non-verbal but arousable. She was not cooperative with exam - obtaining hx was not possible. PEG tube and kitchen were in place. Objective - Vital Signs/Intake and Output Vital Signs (last 24 hours): Temp Pulse Resp BP Pulse Ox 97.6 F 66 16 107/54 L 95 02/16/18 04:00 02/16/18 14:31 02/16/18 07:07 02/16/18 07:00 02/15/18 18:30 Intake and Output: 02/16/18 02/16/18 06:59 18:59 Intake Total 1200 Output Total 1150 Balance 50 - Medications Medications: Current Medications Atorvastatin Calcium (Lipitor) 10 mg PO DIN [facility] Bacitracin (Bacitracin) 0 ea TOP BID [facility] Sodium Chloride (Hypertonic Saline 3%) 500 mls @ 30 mls/hr IV .[id number] [facility] Last Admin: 02/15/18 08:32 Dose: 30 mls/hr Potassium Chloride 40 meq/ (Sodium Chloride) 1,020 mls @ 75 mls/hr IV .[id number] [facility] Last Admin: 02/16/18 10:13 Dose: 75 mls/hr Insulin Human Lispro (Humalog Low) 0 units SC ACHS [facility]; Protocol Last Admin: 02/16/18 12:38 Dose: Not Given Levothyroxine Sodium (Synthroid) 25 mcg PO 0600 [facility] Last Admin: 02/16/18 12:39 Dose: Not Given Lorazepam (Ativan) 1 mg IVP Q6H PRN; Protocol PRN Reason: Seizure activity Last Admin: 02/15/18 22:24 Dose: 1 mg Metoprolol Tartrate (Lopressor) 25 mg PO BID [facility] Last Admin: 02/15/18 09:44 Dose: Not Given Nystatin (Nystop Topical Powder) 0 gm TOP BID [facility] Last Admin: 02/16/18 10:13 Dose: 1 applic Pantoprazole Sodium (Protonix Inj) 40 mg IVP DAILY [facility] Last Admin: 12/29/18 10:11 Dose: 40 mg - Labs Labs: 02/16/18 05:00 02/16/18 14:00 - Additional Findings Additional findings: - Constitutional Appears: Non-toxic, No Acute Distress, Cachectic, Chronically Ill - Head Exam Head Exam: ATRAUMATIC, NORMAL INSPECTION, NORMOCEPHALIC - Eye Exam Eye Exam: EOMI, Normal appearance, PERRL - Respiratory Exam Respiratory Exam: NORMAL BREATHING PATTERN. absent: Accessory Muscle Use, Clear to Auscultation Bilateral (pt had referred upper airway sounds making lung assessment difficult), Respiratory Distress - Cardiovascular Exam Cardiovascular Exam: RRR, +S1, +S2. absent: Gallop, Rubs, Systolic Murmur - GI/Abdominal Exam GI & Abdominal Exam: Normal Bowel Sounds. absent: Distended, Firm Additional comments: Pt has G tube in place, with no surrounding erythema or discharge. - Extremities Exam Extremities exam: Positive for: normal capillary refill, pedal pulses present. Negative for: pedal edema, tenderness - Neurological Exam Neurological exam: Altered (post-ictal) - Psychiatric Exam Additional comments: Pt is somnolent - Skin Skin Exam: Dry, Normal Color, Warm Assessment and Plan - Assessment and Plan (Free Text) Plan: Pt is a 67 yo F with pmhx of HTN, DM, hypothyroidism, hyponatremia, cachexia and odynophagia s/p PEG tube placement who is BIBA after family reported 2 episodes of nausea and vomiting and AMS. In ED pt has seizure and noted to be hyponatremic. Awaiting results of CT abd/pelvis. Pt started on hypertonic saline. Plan: 1. Hyponatremia: - hx of hyponatremia now with acute episode of hyponatremia possible 2/2 to SIADH with also a volume depletion component - temporarily giving free water flushes to stabilize over-correction of hyponatremia (patient ripped out IV) - discontinued hypertonic saline rate to 30 cc/hr. Currently IVF NS @75 cc/hr - check BMP q4h for Na - most recent 121. Continue BMP q4 - Insert PICC line - Urine Na, Urine osm, Serum osm showing improvement - TSH normal - strict ins and outs 2. Seizure likely 2/2 symptomatic hyponatremia: - Hypertonic saline @ 50cc/hr now being held - NS started at low rate - BMP Q4 hr - Ativan 1 q5mins for active seizures - Seizure precautions - Neurochecks q2 - Head of bed elevated to 30 degrees - G tube to suction to prevent aspiration - Aspiration precautions - Nephro consult - Mughni - 02/14/18 CT Abdomen Pelvis with IV contrast- proper PEG tube placement, distended stomach and bladder, lumbar vertebral body compression fractures, Focal cortical scarring mid and lower pole regions right kidney - 02/16/18 CT head w/o contrast - no acute intracranial pathology; age related changes 3. Hypomagnesemia: - Repleted with 2mg IV mag 4. Distended bladder: - Possible neurogenic bladder - Kitchen in place - Will continue to monitor 5. Fungal rash: - Located at the pannus and under breast folds - Nystatin powder 5. Hx of HTN: - Cont home lopressor 6. Hx of hypothyroidism: - Cont home synthroid 25 mcg - TSH normal 7. Hx of DM: - HgbA1c - NPO for now - Sliding scale insulin - Daily Accuchecks - Lipid panel LDL elevated 8. Hx of cachexia s/p PEG tube: - G tube in place - GI consulted - Dr. Patterson - appreciate recommendations * PEG tube flushed and cleared of obstruction * OK to use tube for meds/feeds - distended stomach on imaging - will hold off on tube feeds for now - dietary eval - bacitracin topical around PEG tube site twice a day 9. Hx of Odynophagia - NPO, f/u swallow eval - previous workup done with imaging and endoscopy - no etiology for odynophagia 10. PPx: - GI: Protonix - DVT: SCDs Case seen and examined with Dr. Resendez. <Rell Resendez - Last Filed: 02/17/18 14:18> Objective - Vital Signs/Intake and Output Vital Signs (last 24 hours): Temp Pulse Resp BP Pulse Ox 98.1 F 78 28 H 131/73 78 L 02/17/18 12:00 02/17/18 13:50 02/17/18 13:50 02/17/18 13:00 02/17/18 13:50 Intake and Output: 02/17/18 02/17/18 06:59 18:59 Intake Total 1360 Output Total 850 Balance 510 - Medications Medications: Current Medications Atorvastatin Calcium (Lipitor) 10 mg PO DIN [facility] Last Admin: 02/16/18 18:07 Dose: 10 mg Bacitracin (Bacitracin) 0 ea TOP BID [facility] Last Admin: 02/17/18 11:47 Dose: 1 ea Sodium Chloride (Hypertonic Saline 3%) 500 mls @ 30 mls/hr IV .[id number] [facility] Last Admin: 02/15/18 08:32 Dose: 30 mls/hr Potassium Chloride 40 meq/ (Sodium Chloride) 1,020 mls @ 100 mls/hr IV .[id number] [facility] Insulin Human Lispro (Humalog Low) 0 units SC ACHS [facility]; Protocol Last Admin: 02/16/18 22:07 Dose: Not Given Levothyroxine Sodium (Synthroid) 25 mcg PO 0600 [facility] Last Admin: 02/17/18 05:20 Dose: 25 mcg Lorazepam (Ativan) 1 mg IVP Q6H PRN; Protocol PRN Reason: Seizure activity Last Admin: 02/16/18 18:06 Dose: 1 mg Metoprolol Tartrate (Lopressor) 25 mg PO BID [facility] Last Admin: 02/15/18 09:44 Dose: Not Given Nystatin (Nystop Topical Powder) 0 gm TOP BID [facility] Last Admin: 02/17/18 11:46 Dose: 1 applic Pantoprazole Sodium (Protonix Inj) 40 mg IVP DAILY [facility] Last Admin: 02/17/18 11:45 Dose: 40 mg - Labs Labs: 02/17/18 05:00 02/17/18 10:00 Attending/Attestation - Attestation I have personally seen and examined this patient.: Yes I have fully participated in the care of the patient.: Yes I have reviewed all pertinent clinical information, including history, physical exam and plan: Yes Notes (Text): 02/17/18 14:04 attending note; Patient seen and examined with resident. Patient is sedated. Patient had episodes of agitation. Currently on restraints. Vitals stable. Getting IV fluids. Patient is a is a 67 -year-old female with pmhx of HTN, DM, hypothyroidism, hyponatremia, cachexia and odynophagia s/p PEG tube placement who is BIBA after family reported 2 episodes of nausea and vomiting and altered mental status i. In ED pt had seizure and noted to be hyponatremic. 1.Severe hyponatremia; patient was started on 3% normal saline. Currently on normal saline. Monitor sodium closely. Patient is dehydrated/poor solute intake. nephrology evaluation appreciated. 2. History of psychiatric disorder; patient still with agitation. Continue An when necessary. 3.status post PEG malfunction; GI evaluation appreciated. PEG has been flushed. We will start feeding. Speech and swallow evaluation requested. 4. hypothyroidism; continue Synthroid. 5. Fungal rash; continue nystatin cream. 6. Hypokalemia and hypomagnesemia; continue IV supplementation. 7.diabetes; continue regular insulin sliding scale. 7. Seizure disorder; secondary to electrolyte imbalance. CT head is negative. neurology evaluation appreciated. we will discuss with family about home living situation. pressed or blown glass worker evaluation requested. continue to monitor the patient closely in ICU.
[2018-02-16] MEDS: Bacitracin 500 Units/gm Oint Foilpak UD TOP SCH (18:06)
[2018-02-16 18:52] LABS: BLOOD UREA NITROGEN 10 mg/dL (7-21); CALCIUM 9.1 mg/dL (8.4-10.5); GFR NON-AFRICAN AMERICAN > 60
--- NOTE | 2018-02-16 21:24 | CP.PCM.PN ---
Subjective - Date & Time of Evaluation Date of Evaluation: 02/16/18 Time of Evaluation: 11:00 - Subjective Subjective: Patient agitated at times, wanting kitchen out; Objective - Vital Signs/Intake and Output Vital Signs (last 24 hours): Temp Pulse Resp BP Pulse Ox 97.3 F L 69 17 117/64 99 02/16/18 20:00 02/16/18 21:00 02/16/18 21:00 02/16/18 21:00 02/16/18 21:00 Intake and Output: 02/16/18 02/17/18 18:59 06:59 Intake Total 2850 Output Total 3400 Balance -550 - Medications Medications: Current Medications Atorvastatin Calcium (Lipitor) 10 mg PO DIN [facility] Last Admin: 02/16/18 18:07 Dose: 10 mg Bacitracin (Bacitracin) 0 ea TOP BID [facility] Last Admin: 02/16/18 18:06 Dose: 1 ea Sodium Chloride (Hypertonic Saline 3%) 500 mls @ 30 mls/hr IV .[id number] [facility] Last Admin: 02/15/18 08:32 Dose: 30 mls/hr Dextrose (Dextrose 5% In Water 1000 Ml) 1,000 mls @ 200 mls/hr IV .Q5H [facility] Stop: 02/17/18 02:29 Insulin Human Lispro (Humalog Low) 0 units SC ACHS [facility]; Protocol Last Admin: 02/16/18 17:56 Dose: Not Given Levothyroxine Sodium (Synthroid) 25 mcg PO 0600 [facility] Last Admin: 02/16/18 12:39 Dose: Not Given Lorazepam (Ativan) 1 mg IVP Q6H PRN; Protocol PRN Reason: Seizure activity Last Admin: 02/16/18 18:06 Dose: 1 mg Metoprolol Tartrate (Lopressor) 25 mg PO BID [facility] Last Admin: 02/15/18 09:44 Dose: Not Given Nystatin (Nystop Topical Powder) 0 gm TOP BID [facility] Last Admin: 02/16/18 17:57 Dose: 1 applic Pantoprazole Sodium (Protonix Inj) 40 mg IVP DAILY [facility] Last Admin: 02/16/18 10:11 Dose: 40 mg - Labs Labs: 02/16/18 05:00 02/16/18 18:02 - Constitutional Appears: Non-toxic, No Acute Distress - Eye Exam Eye Exam: Normal appearance - Respiratory Exam Respiratory Exam: Clear to Ausculation Bilateral. absent: Respiratory Distress - GI/Abdominal Exam GI & Abdominal Exam: Soft. absent: Distended, Tenderness - Extremities Exam Additional comments: no leg edema - Neurological Exam Neurological Exam: Alert, Awake - Psychiatric Exam Psychiatric exam: Agitated - Skin Skin Exam: Warm. absent: Cyanosis Assessment and Plan (1) Hyponatremia Assessment & Plan: Improved with isotonic IVF; once again polyuric with concern that serum sodium is rising too rapidly (goal 6-8 meq over 24 hrs); otherwise, stable mental status, no more seizures; -holding NS temporarily; giving back 1L D5W over 5 hrs; restarting NS at 75 cc/hr thereafter (goal of 126-128 tomorrow morning); -continue to replenish potassium prn (mild hypokalemia, will continue to have urinary potassium loss); -continue to check bmp q4h; Status: Acute (2) Altered mental status Status: Resolved
[2018-02-16 22:12] LABS: BLOOD UREA NITROGEN 11 mg/dL (7-21); CALCIUM 8.6 mg/dL (8.4-10.5); GFR NON-AFRICAN AMERICAN > 60
[2018-02-17 00:36] LABS: OSMOLALITY,URINE 265 mosm/kg (300-1000)
[2018-02-17 02:37] LABS: BLOOD UREA NITROGEN 11 mg/dL (7-21); CALCIUM 8.4 mg/dL (8.4-10.5); GFR NON-AFRICAN AMERICAN > 60
[2018-02-17] MEDS: Levothyroxine 25 MCG TAB PO SCH (05:20)
[2018-02-17 05:41] LABS: BASO # 0.01 K/mm3 (0.0-2.0); BASO % 0.1 % (0.0-3.0); EOS % 0.2 % (1.5-5.0); GRAN # 9.79 (1.4-6.5); GRAN % 90.9 % (50.0-68.0); HEMOGLOBIN 12.7 g/dL (12.0-16.0); LYMPH # 0.5 (1.2-3.4); LYMPH % 4.3 % (22.0-35.0); MEAN CELL VOLUME 77.2 fl (80.0-105.0); MEAN CORPUSCULAR HEMOGLOBIN 26.5 pg (25.0-35.0); MEAN CORPUSCULAR HGB CONC 34.3 g/dl (31.0-37.0); MEAN PLATELET VOLUME 9.2 fl (7.0-11.0); MONO # 0.5 (0.1-0.6); MONO % 4.5 % (1.0-6.0); PLATELET COUNT 320 10^3/uL (120.0-450.0); RBC 4.79 10^6/uL (3.5-6.1); RED CELL DISTRIBUTION WIDTH 13.9 % (11.5-14.5); WHITE BLOOD COUNT 10.8 10^3/uL (4.5-11.0)
[2018-02-17 06:01] LABS: ALBUMIN 3.8 g/dL (3.0-4.8); ALT/SGPT 21 U/L (7-56); AST/SGOT 38 U/L (14-36); BLOOD UREA NITROGEN 13 mg/dL (7-21); CALCIUM 8.6 mg/dL (8.4-10.5); GFR NON-AFRICAN AMERICAN > 60
[2018-02-17] MEDS: Insulin Lispro (humaLOG) LOW Coverage SC SCH ×4 (07:30→22:00)
[2018-02-17 07:35] LABS: BAND 2 % (0-2); LYMPHOCYTE 10 % (22.0-35.0); MONOCYTE 4 % (1.0-6.0); NEUTROPHIL 84 % (50.0-70.0)
--- NOTE | 2018-02-17 08:14 | CP.CCUPN ---
<Sourav Lawson - Last Filed: 02/17/18 12:09> CCU Subjective - Physician Review Subjective (Free Text): Sourav Lawson PGY-1 Progress Note for ICU Patient seen and evaluated at bedside. Low grade fever 100 and episodes of hypotension overnight to 90/57. Patient is verbal and arousable. Patient in no acute distress, denies chest pain, palpitations, headaches, shortness of breath, dysuria, vision changes. CCU Objective - Vital Signs / Intake & Output Vital Signs (Last 4 hours): Vital Signs Pulse Resp BP Pulse Ox 02/17/18 06:00 88 21 106/49 L 97 02/17/18 05:00 88 21 99/59 L 94 L Intake and Output (Last 8hrs): Intake & Output 02/16/18 02/17/18 02/17/18 22:59 06:59 14:59 Intake Total 1650 1360 Output Total 2250 850 Balance -600 510 Intake: IV 900 1300 0.9 900 300 Right Hand 1000 Tube Feeding 750 Other 60 Output: Urine 2250 850 Urethral (Daniel) 2250 850 - Physical Exam Head: Positive for: Atraumatic, Normocephalic Pupils: Positive for: PERRL Extroacular Muscles: Positive for: EOMI Conjunctiva: Positive for: Normal Mouth: Positive for: Moist Mucous Membranes Nose (External): Positive for: Other (dark brown dried blood noted in nares) Neck: Positive for: Normal Range of Motion Respiratory/Chest: Positive for: Clear to Auscultation, Decreased Breath Sounds. Negative for: Respiratory Distress, Accessory Muscle Use Cardiovascular: Positive for: Normal S1, S2. Negative for: Murmurs Abdomen: Positive for: Tenderness, Guarding, Feeding Tubes (PEG in place, dark brown drainage noted. Circumferential patch of erythema and dry skin surrounding tube.). Negative for: Peritoneal Signs Back: Positive for: Normal Inspection Upper Extremity: Positive for: Normal Inspection. Negative for: Cyanosis, Edema Lower Extremity: Positive for: Normal Inspection. Negative for: Edema Neurological: Positive for: GCS=15 Skin: Positive for: Warm, Dry, Normal Color. Negative for: Rashes Psychiatric: Positive for: Alert, Oriented x 3. Negative for: Agitated (resolved) - Medications Active Medications: Active Medications Generic Name Dose Route Start Last Admin Trade Name Freq PRN Reason Stop Dose Admin Atorvastatin Calcium 10 mg 02/16/18 17:00 02/16/18 18:07 Lipitor PO 10 mg DIN LAUREN Administration Bacitracin 0 ea 02/16/18 18:00 02/16/18 18:06 Bacitracin TOP 1 ea BID LAUREN Administration Sodium Chloride 500 mls @ 30 mls/hr 02/15/18 08:07 02/15/18 08:32 Hypertonic Saline 3% IV 30 mls/hr .[id number] LAUREN Administration Potassium Chloride 10 meq in 100 mls @ 50 mls/hr 02/17/18 07:00 Potassium Chloride 10 Meq/100 Ml IVPB 02/17/18 10:59 Q2H LAUREN Potassium Chloride 40 meq/ 1,020 mls @ 100 mls/hr 02/17/18 07:28 Sodium Chloride IV .[id number] LAUREN Insulin Human Lispro 0 units 02/15/18 07:30 02/16/18 22:07 Humalog Low SC Not Given ACHS LAUREN Protocol Levothyroxine Sodium 25 mcg 02/15/18 06:00 02/17/18 05:20 Synthroid PO 25 mcg 0600 LAUREN Administration Lorazepam 1 mg 02/15/18 11:35 02/16/18 18:06 Ativan IVP 1 mg Q6H PRN Administration Seizure activity Protocol Metoprolol Tartrate 25 mg 02/15/18 10:00 02/15/18 09:44 Lopressor PO Not Given BID LAUREN Nystatin 0 gm 02/15/18 10:00 02/16/18 17:57 Nystop Topical Powder TOP 1 applic BID LAUREN Administration Pantoprazole Sodium 40 mg 02/15/18 10:00 02/16/18 10:11 Protonix Inj IVP 40 mg DAILY LAUREN Administration - Patient Studies Lab Studies: Microbiology Studies 02/15/18 07:00 MRSA Culture (Admit) - Final Naris MRSA NOT DETECTED 02/15/18 03:37 Urine Culture - Final Urine,Daniel No Growth (<1,000 CFU/ML) Lab Studies 02/17/18 02/17/18 02/17/18 Range/Units 05:00 05:00 02:00 WBC 10.8 D (4.5-11.0) 10^3/uL RBC 4.79 (3.5-6.1) 10^6/uL Hgb 12.7 (12.0-16.0) g/dL Hct 37.0 (36.0-48.0) % MCV 77.2 L (80.0-105.0) fl MCH 26.5 (25.0-35.0) pg MCHC 34.3 (31.0-37.0) g/dl RDW 13.9 (11.5-14.5) % Plt Count 320 (120.0-450.0) 10^3/uL MPV 9.2 (7.0-11.0) fl Gran % 90.9 H (50.0-68.0) % Lymph % (Auto) 4.3 L (22.0-35.0) % [place] % (Auto) 4.5 (1.0-6.0) % Eos % (Auto) 0.2 L (1.5-5.0) % Baso % (Auto) 0.1 (0.0-3.0) % Gran # 9.79 H (1.4-6.5) Lymph # (Auto) 0.5 L (1.2-3.4) [place] # (Auto) 0.5 (0.1-0.6) Eos # (Auto) 0.0 (0.0-0.7) Baso # (Auto) 0.01 (0.0-2.0) K/mm3 Neutrophils % (Manual) 84 H (50.0-70.0) % Band Neutrophils % 2 (0-2) % Lymphocytes % (Manual) 10 L (22.0-35.0) % Monocytes % (Manual) 4 (1.0-6.0) % Sodium 123 L 124 L (132-148) mmol/L Potassium 3.2 L 3.4 L (3.6-5.0) mmol/L Chloride 90 L 90 L (98-107) mmol/L Carbon Dioxide 25 24 (21-33) mmol/L Anion Gap 11 13 (10-20) BUN 13 11 (7-21) mg/dL Creatinine 0.6 L 0.5 L (0.7-1.2) mg/dl Est GFR ( Amer) > 60 > 60 Est GFR (Non-Af Amer) > 60 > 60 POC Glucose (mg/dL) (65-110) mg/dL Random Glucose 129 H 153 H (70-110) mg/dL Calcium 8.6 8.4 (8.4-10.5) mg/dL Phosphorus 3.0 (2.5-4.5) mg/dL Magnesium 2.0 (1.7-2.2) mg/dL Total Bilirubin 1.5 H (0.2-1.3) mg/dL AST 38 H (14-36) U/L ALT 21 (7-56) U/L Alkaline Phosphatase 128 H (38-126) U/L Total Protein 7.8 (5.8-8.3) g/dL Albumin 3.8 (3.0-4.8) g/dL Globulin 4.0 gm/dL Albumin/Globulin Ratio 1.0 L (1.1-1.8) Urine Osmolality (300-1000) mosm/kg Ur Random Sodium meq/L 02/17/18 02/16/18 02/16/18 Range/Units 00:15 22:02 21:58 WBC (4.5-11.0) 10^3/uL RBC (3.5-6.1) 10^6/uL Hgb (12.0-16.0) g/dL Hct (36.0-48.0) % MCV (80.0-105.0) fl MCH (25.0-35.0) pg MCHC (31.0-37.0) g/dl RDW (11.5-14.5) % Plt Count (120.0-450.0) 10^3/uL MPV (7.0-11.0) fl Gran % (50.0-68.0) % Lymph % (Auto) (22.0-35.0) % [place] % (Auto) (1.0-6.0) % Eos % (Auto) (1.5-5.0) % Baso % (Auto) (0.0-3.0) % Gran # (1.4-6.5) Lymph # (Auto) (1.2-3.4) [place] # (Auto) (0.1-0.6) Eos # (Auto) (0.0-0.7) Baso # (Auto) (0.0-2.0) K/mm3 Neutrophils % (Manual) (50.0-70.0) % Band Neutrophils % (0-2) % Lymphocytes % (Manual) (22.0-35.0) % Monocytes % (Manual) (1.0-6.0) % Sodium 126 L (132-148) mmol/L Potassium 3.5 L (3.6-5.0) mmol/L Chloride 93 L (98-107) mmol/L Carbon Dioxide 25 (21-33) mmol/L Anion Gap 12 (10-20) BUN 11 (7-21) mg/dL Creatinine 0.5 L (0.7-1.2) mg/dl Est GFR ( Amer) > 60 Est GFR (Non-Af Amer) > 60 POC Glucose (mg/dL) 142 H (65-110) mg/dL Random Glucose 144 H (70-110) mg/dL Calcium 8.6 (8.4-10.5) mg/dL Phosphorus (2.5-4.5) mg/dL Magnesium (1.7-2.2) mg/dL Total Bilirubin (0.2-1.3) mg/dL AST (14-36) U/L ALT (7-56) U/L Alkaline Phosphatase (38-126) U/L Total Protein (5.8-8.3) g/dL Albumin (3.0-4.8) g/dL Globulin gm/dL Albumin/Globulin Ratio (1.1-1.8) Urine Osmolality 265 L (300-1000) mosm/kg Ur Random Sodium 23 meq/L 02/16/18 02/16/18 02/16/18 Range/Units 18:02 16:05 14:00 WBC (4.5-11.0) 10^3/uL RBC (3.5-6.1) 10^6/uL Hgb (12.0-16.0) g/dL Hct (36.0-48.0) % MCV (80.0-105.0) fl MCH (25.0-35.0) pg MCHC (31.0-37.0) g/dl RDW (11.5-14.5) % Plt Count (120.0-450.0) 10^3/uL MPV (7.0-11.0) fl Gran % (50.0-68.0) % Lymph % (Auto) (22.0-35.0) % [place] % (Auto) (1.0-6.0) % Eos % (Auto) (1.5-5.0) % Baso % (Auto) (0.0-3.0) % Gran # (1.4-6.5) Lymph # (Auto) (1.2-3.4) [place] # (Auto) (0.1-0.6) Eos # (Auto) (0.0-0.7) Baso # (Auto) (0.0-2.0) K/mm3 Neutrophils % (Manual) (50.0-70.0) % Band Neutrophils % (0-2) % Lymphocytes % (Manual) (22.0-35.0) % Monocytes % (Manual) (1.0-6.0) % Sodium 126 L 122 L (132-148) mmol/L Potassium 3.2 L 3.1 L (3.6-5.0) mmol/L Chloride 90 L 86 L (98-107) mmol/L Carbon Dioxide 24 25 (21-33) mmol/L Anion Gap 15 14 (10-20) BUN 10 10 (7-21) mg/dL Creatinine 0.5 L 0.5 L (0.7-1.2) mg/dl Est GFR ( Amer) > 60 > 60 Est GFR (Non-Af Amer) > 60 > 60 POC Glucose (mg/dL) 89 (65-110) mg/dL Random Glucose 147 H 110 (70-110) mg/dL Calcium 9.1 9.0 (8.4-10.5) mg/dL Phosphorus (2.5-4.5) mg/dL Magnesium (1.7-2.2) mg/dL Total Bilirubin (0.2-1.3) mg/dL AST (14-36) U/L ALT (7-56) U/L Alkaline Phosphatase (38-126) U/L Total Protein (5.8-8.3) g/dL Albumin (3.0-4.8) g/dL Globulin gm/dL Albumin/Globulin Ratio (1.1-1.8) Urine Osmolality (300-1000) mosm/kg Ur Random Sodium meq/L 02/16/18 02/16/18 02/16/18 Range/Units 11:32 10:00 07:46 WBC (4.5-11.0) 10^3/uL RBC (3.5-6.1) 10^6/uL Hgb (12.0-16.0) g/dL Hct (36.0-48.0) % MCV (80.0-105.0) fl MCH (25.0-35.0) pg MCHC (31.0-37.0) g/dl RDW (11.5-14.5) % Plt Count (120.0-450.0) 10^3/uL MPV (7.0-11.0) fl Gran % (50.0-68.0) % Lymph % (Auto) (22.0-35.0) % [place] % (Auto) (1.0-6.0) % Eos % (Auto) (1.5-5.0) % Baso % (Auto) (0.0-3.0) % Gran # (1.4-6.5) Lymph # (Auto) (1.2-3.4) [place] # (Auto) (0.1-0.6) Eos # (Auto) (0.0-0.7) Baso # (Auto) (0.0-2.0) K/mm3 Neutrophils % (Manual) (50.0-70.0) % Band Neutrophils % (0-2) % Lymphocytes % (Manual) (22.0-35.0) % Monocytes % (Manual) (1.0-6.0) % Sodium 121 L (132-148) mmol/L Potassium 3.9 (3.6-5.0) mmol/L Chloride 86 L (98-107) mmol/L Carbon Dioxide 26 (21-33) mmol/L Anion Gap 13 (10-20) BUN 10 (7-21) mg/dL Creatinine 0.4 L (0.7-1.2) mg/dl Est GFR ( Amer) > 60 Est GFR (Non-Af Amer) > 60 POC Glucose (mg/dL) 72 72 (65-110) mg/dL Random Glucose 93 (70-110) mg/dL Calcium 8.9 (8.4-10.5) mg/dL Phosphorus (2.5-4.5) mg/dL Magnesium (1.7-2.2) mg/dL Total Bilirubin (0.2-1.3) mg/dL AST (14-36) U/L ALT (7-56) U/L Alkaline Phosphatase (38-126) U/L Total Protein (5.8-8.3) g/dL Albumin (3.0-4.8) g/dL Globulin gm/dL Albumin/Globulin Ratio (1.1-1.8) Urine Osmolality (300-1000) mosm/kg Ur Random Sodium meq/L 02/16/18 02/15/18 Range/Units 07:04 22:14 WBC (4.5-11.0) 10^3/uL RBC (3.5-6.1) 10^6/uL Hgb (12.0-16.0) g/dL Hct (36.0-48.0) % MCV (80.0-105.0) fl MCH (25.0-35.0) pg MCHC (31.0-37.0) g/dl RDW (11.5-14.5) % Plt Count (120.0-450.0) 10^3/uL MPV (7.0-11.0) fl Gran % (50.0-68.0) % Lymph % (Auto) (22.0-35.0) % [place] % (Auto) (1.0-6.0) % Eos % (Auto) (1.5-5.0) % Baso % (Auto) (0.0-3.0) % Gran # (1.4-6.5) Lymph # (Auto) (1.2-3.4) [place] # (Auto) (0.1-0.6) Eos # (Auto) (0.0-0.7) Baso # (Auto) (0.0-2.0) K/mm3 Neutrophils % (Manual) (50.0-70.0) % Band Neutrophils % (0-2) % Lymphocytes % (Manual) (22.0-35.0) % Monocytes % (Manual) (1.0-6.0) % Sodium (132-148) mmol/L Potassium (3.6-5.0) mmol/L Chloride (98-107) mmol/L Carbon Dioxide (21-33) mmol/L Anion Gap (10-20) BUN (7-21) mg/dL Creatinine (0.7-1.2) mg/dl Est GFR ( Amer) Est GFR (Non-Af Amer) POC Glucose (mg/dL) 110 (65-110) mg/dL Random Glucose (70-110) mg/dL Calcium (8.4-10.5) mg/dL Phosphorus (2.5-4.5) mg/dL Magnesium (1.7-2.2) mg/dL Total Bilirubin (0.2-1.3) mg/dL AST (14-36) U/L ALT (7-56) U/L Alkaline Phosphatase (38-126) U/L Total Protein (5.8-8.3) g/dL Albumin (3.0-4.8) g/dL Globulin gm/dL Albumin/Globulin Ratio (1.1-1.8) Urine Osmolality 318 (300-1000) mosm/kg Ur Random Sodium 109 meq/L Laboratory Results - last 24 hr 02/15/18 02/16/18 02/16/18 22:14 07:04 07:46 WBC RBC Hgb Hct MCV MCH MCHC RDW Plt Count MPV Gran % Lymph % (Auto) [place] % (Auto) Eos % (Auto) Baso % (Auto) Gran # Lymph # (Auto) [place] # (Auto) Eos # (Auto) Baso # (Auto) Neutrophils % (Manual) Band Neutrophils % Lymphocytes % (Manual) Monocytes % (Manual) Sodium Potassium Chloride Carbon Dioxide Anion Gap BUN Creatinine Est GFR ( Amer) Est GFR (Non-Af Amer) POC Glucose (mg/dL) 110 72 Random Glucose Calcium Phosphorus Magnesium Total Bilirubin AST ALT Alkaline Phosphatase Total Protein Albumin Globulin Albumin/Globulin Ratio Urine Osmolality 318 Ur Random Sodium 109 02/16/18 02/16/18 02/16/18 10:00 11:32 14:00 WBC RBC Hgb Hct MCV MCH MCHC RDW Plt Count MPV Gran % Lymph % (Auto) [place] % (Auto) Eos % (Auto) Baso % (Auto) Gran # Lymph # (Auto) [place] # (Auto) Eos # (Auto) Baso # (Auto) Neutrophils % (Manual) Band Neutrophils % Lymphocytes % (Manual) Monocytes % (Manual) Sodium 121 L 122 L Potassium 3.9 3.1 L Chloride 86 L 86 L Carbon Dioxide 26 25 Anion Gap 13 14 BUN 10 10 Creatinine 0.4 L 0.5 L Est GFR ( Amer) > 60 > 60 Est GFR (Non-Af Amer) > 60 > 60 POC Glucose (mg/dL) 72 Random Glucose 93 110 Calcium 8.9 9.0 Phosphorus Magnesium Total Bilirubin AST ALT Alkaline Phosphatase Total Protein Albumin Globulin Albumin/Globulin Ratio Urine Osmolality Ur Random Sodium 02/16/18 02/16/18 02/16/18 16:05 18:02 21:58 WBC RBC Hgb Hct MCV MCH MCHC RDW Plt Count MPV Gran % Lymph % (Auto) [place] % (Auto) Eos % (Auto) Baso % (Auto) Gran # Lymph # (Auto) [place] # (Auto) Eos # (Auto) Baso # (Auto) Neutrophils % (Manual) Band Neutrophils % Lymphocytes % (Manual) Monocytes % (Manual) Sodium 126 L 126 L Potassium 3.2 L 3.5 L Chloride 90 L 93 L Carbon Dioxide 24 25 Anion Gap 15 12 BUN 10 11 Creatinine 0.5 L 0.5 L Est GFR ( Amer) > 60 > 60 Est GFR (Non-Af Amer) > 60 > 60 POC Glucose (mg/dL) 89 Random Glucose 147 H 144 H Calcium 9.1 8.6 Phosphorus Magnesium Total Bilirubin AST ALT Alkaline Phosphatase Total Protein Albumin Globulin Albumin/Globulin Ratio Urine Osmolality Ur Random Sodium 02/16/18 02/17/18 02/17/18 22:02 00:15 02:00 WBC RBC Hgb Hct MCV MCH MCHC RDW Plt Count MPV Gran % Lymph % (Auto) [place] % (Auto) Eos % (Auto) Baso % (Auto) Gran # Lymph # (Auto) [place] # (Auto) Eos # (Auto) Baso # (Auto) Neutrophils % (Manual) Band Neutrophils % Lymphocytes % (Manual) Monocytes % (Manual) Sodium 124 L Potassium 3.4 L Chloride 90 L Carbon Dioxide 24 Anion Gap 13 BUN 11 Creatinine 0.5 L Est GFR ( Amer) > 60 Est GFR (Non-Af Amer) > 60 POC Glucose (mg/dL) 142 H Random Glucose 153 H Calcium 8.4 Phosphorus Magnesium Total Bilirubin AST ALT Alkaline Phosphatase Total Protein Albumin Globulin Albumin/Globulin Ratio Urine Osmolality 265 L Ur Random Sodium 23 02/17/18 02/17/18 05:00 05:00 WBC 10.8 D RBC 4.79 Hgb 12.7 Hct 37.0 MCV 77.2 L MCH 26.5 MCHC 34.3 RDW 13.9 Plt Count 320 MPV 9.2 Gran % 90.9 H Lymph % (Auto) 4.3 L [place] % (Auto) 4.5 Eos % (Auto) 0.2 L Baso % (Auto) 0.1 Gran # 9.79 H Lymph # (Auto) 0.5 L [place] # (Auto) 0.5 Eos # (Auto) 0.0 Baso # (Auto) 0.01 Neutrophils % (Manual) 84 H Band Neutrophils % 2 Lymphocytes % (Manual) 10 L Monocytes % (Manual) 4 Sodium 123 L Potassium 3.2 L Chloride 90 L Carbon Dioxide 25 Anion Gap 11 BUN 13 Creatinine 0.6 L Est GFR ( Amer) > 60 Est GFR (Non-Af Amer) > 60 POC Glucose (mg/dL) Random Glucose 129 H Calcium 8.6 Phosphorus 3.0 Magnesium 2.0 Total Bilirubin 1.5 H AST 38 H ALT 21 Alkaline Phosphatase 128 H Total Protein 7.8 Albumin 3.8 Globulin 4.0 Albumin/Globulin Ratio 1.0 L Urine Osmolality Ur Random Sodium Radiology Impressions: Radiology Impressions Head CT 02/15/18 05:32 IMPRESSION: No acute intracranial pathology. Age-related changes. No significant interval change. Fingerstick Blood Sugar Results: 126 Assessment/Plan - Assessment and Plan (Free Text) Assessment: 67 F with PMH of HTN, DM, Hypothyroidism, Hyponatremia, cachexia, odynophagia, PEG tube placement who was admitted for evaluation and treatment of nausea, vomiting, and AMS. Patient experienced seizure while in the ED and was noted to be severely hyponatremic. Patient transferred to ICU for closer monitoring. Patient was found to be agitated and restraints were necessary after she pulled out her IV lines. Under ICU care for management of her hyponatremia. Na has responded appropriately to fluids. Neurology AMS, Seizure - AMS most likely secondary to hyponatremia and post-ictal state - seizure precautions - discontinued hypertonic saline rate to 30 cc/hr. Currently IVF NS @75 cc/hr along with K repletion - check BMP q4h for Na - most recent 123. Continue BMP q4 - Insert PICC line - Neurology Consulted - Dr. 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 Abundant urine output. - K repleted. Repeat CMP appropriate - Nephrology consulted - further recs appreciated Cardiovascular Hx of HTN - EKG Sinus Bradycardia HR 55 bpm, QTc 447ms - Echo May 2017- LVEF 59%, left ventricular function normal Hypotension - Blood pressure off Lopressor improved to 102/60 on last check - keep MAP > 65 Respiratory - CXR (02/14) shows no active disease - Maintain O2 saturation > 90% GI PEG tube malfunctioning, Nausea, Vomiting, Odynophagia - 02/14/18 CT Abdomen Pelvis with IV contrast- proper PEG tube placement, distended stomach and bladder, lumbar vertebral body compression fractures, Focal cortical scarring mid and lower pole regions right kidney - PEG tube malfunction with carbonated fluid flushing - PEG tube suction to prevent aspiration - Head of bed elevated to 30 degrees - Aspiration precautions - NPO, f/u speech eval - PPx with Protonix 40 IV daily - GI consulted- Dr. Patterson - appreciate recommendations Endo Hypothyroidism - Continue home Synthroid 25mcg PO daily - Check TSH Diabetes Mellitus II - Sliding scale insulin - Check Hgb A1C - Daily Accuchecks - Diabetic Diet - Lipitor 10 ID f/u blood culture after low grade fever overnight Integumentary Fungal Rash - continue Topical Nystatin powder topically bid Heme DVT - continue SCDs Dispo: Transfer to med/surg. F/u [facility] Patient seen, case reviewed, and plan approved by Dr. Yousuf Pan. Sourav Lawson, PGY-1 <Tramaine Pan - Last Filed: 02/17/18 17:28> CCU Objective - Vital Signs / Intake & Output Vital Signs (Last 4 hours): Vital Signs Pulse Resp BP Pulse Ox 02/17/18 17:10 84 11 L 02/17/18 17:00 75 21 97/48 L 99 02/17/18 16:50 75 98 02/17/18 16:40 73 18 97 02/17/18 16:30 83 18 92 L 02/17/18 16:20 78 18 96 02/17/18 16:10 77 20 99 02/17/18 16:00 76 19 98/56 L 98 02/17/18 15:50 82 20 93 L 02/17/18 15:40 82 99 02/17/18 15:30 84 35 H 78 L 02/17/18 15:22 83 02/17/18 15:21 83 17 02/17/18 15:20 95 H 46 H 02/17/18 15:10 82 20 89 L 02/17/18 15:00 75 19 104/52 L 98 02/17/18 14:50 78 27 H 96 02/17/18 14:40 73 18 90 L 02/17/18 14:30 87 31 H 93 L 02/17/18 14:20 75 18 88 L 02/17/18 14:10 78 18 75 L 02/17/18 14:00 77 19 114/70 84 L 02/17/18 13:50 78 28 H 78 L 02/17/18 13:40 74 19 96 02/17/18 13:30 79 34 H 81 L Intake and Output (Last 8hrs): Intake & Output 02/17/18 02/17/18 02/17/18 06:59 14:59 22:59 Intake Total 1360 Output Total 850 Balance 510 Intake: IV 1300 0.9 300 Right Hand 1000 Other 60 Output: Urine 850 Urethral (Daniel) 850 - Medications Active Medications: Active Medications Generic Name Dose Route Start Last Admin Trade Name Freq PRN Reason Stop Dose Admin Atorvastatin Calcium 10 mg 02/16/18 17:00 02/17/18 17:24 Lipitor PO 10 mg DIN LAUREN Administration Bacitracin 0 ea 02/16/18 18:00 02/17/18 17:24 Bacitracin TOP 1 ea BID LAUREN Administration Sodium Chloride 500 mls @ 30 mls/hr 02/15/18 08:07 02/15/18 08:32 Hypertonic Saline 3% IV 30 mls/hr .[id number] LAUREN Administration Potassium Chloride 40 meq/ 1,020 mls @ 100 mls/hr 02/17/18 07:28 Sodium Chloride IV .[id number] LAUREN Insulin Human Lispro 0 units 02/15/18 07:30 02/17/18 17:18 Humalog Low SC Not Given ACHS [facility] Protocol Levothyroxine Sodium 25 mcg 02/15/18 06:00 02/17/18 05:20 Synthroid PO 25 mcg 0600 LAUREN Administration Lorazepam 1 mg 02/15/18 11:35 02/16/18 18:06 Ativan IVP 1 mg Q6H PRN Administration Seizure activity Protocol Metoprolol Tartrate 25 mg 02/15/18 10:00 02/15/18 09:44 Lopressor PO Not Given BID LAUREN Nystatin 0 gm 02/15/18 10:00 02/17/18 17:24 Nystop Topical Powder TOP 1 applic BID LAUREN Administration Pantoprazole Sodium 40 mg 02/15/18 10:00 02/17/18 11:45 Protonix Inj IVP 40 mg DAILY LAUREN Administration - Patient Studies Lab Studies: Lab Studies 02/17/18 02/17/18 02/17/18 Range/Units 13:50 13:06 10:00 WBC (4.5-11.0) 10^3/uL RBC (3.5-6.1) 10^6/uL Hgb (12.0-16.0) g/dL Hct (36.0-48.0) % MCV (80.0-105.0) fl MCH (25.0-35.0) pg MCHC (31.0-37.0) g/dl RDW (11.5-14.5) % Plt Count (120.0-450.0) 10^3/uL MPV (7.0-11.0) fl Gran % (50.0-68.0) % Lymph % (Auto) (22.0-35.0) % [place] % (Auto) (1.0-6.0) % Eos % (Auto) (1.5-5.0) % Baso % (Auto) (0.0-3.0) % Gran # (1.4-6.5) Lymph # (Auto) (1.2-3.4) [place] # (Auto) (0.1-0.6) Eos # (Auto) (0.0-0.7) Baso # (Auto) (0.0-2.0) K/mm3 Neutrophils % (Manual) (50.0-70.0) % Band Neutrophils % (0-2) % Lymphocytes % (Manual) (22.0-35.0) % Monocytes % (Manual) (1.0-6.0) % Sodium 124 L 125 L (132-148) mmol/L Potassium 4.3 3.9 (3.6-5.0) mmol/L Chloride 94 L 92 L (98-107) mmol/L Carbon Dioxide 22 26 (21-33) mmol/L Anion Gap 12 11 (10-20) BUN 17 17 (7-21) mg/dL Creatinine 0.7 0.9 (0.7-1.2) mg/dl Est GFR ( Amer) > 60 > 60 Est GFR (Non-Af Amer) > 60 > 60 POC Glucose (mg/dL) 133 H (65-110) mg/dL Random Glucose 138 H 128 H (70-110) mg/dL Calcium 8.5 8.7 (8.4-10.5) mg/dL Phosphorus (2.5-4.5) mg/dL Magnesium (1.7-2.2) mg/dL Total Bilirubin 0.8 (0.2-1.3) mg/dL AST 33 (14-36) U/L ALT 21 (7-56) U/L Alkaline Phosphatase 116 (38-126) U/L Total Protein 7.4 (5.8-8.3) g/dL Albumin 3.6 (3.0-4.8) g/dL Globulin 3.8 gm/dL Albumin/Globulin Ratio 1.0 L (1.1-1.8) Urine Osmolality (300-1000) mosm/kg Ur Random Sodium meq/L 02/17/18 02/17/18 02/17/18 Range/Units 06:01 05:00 05:00 WBC 10.8 D (4.5-11.0) 10^3/uL RBC 4.79 (3.5-6.1) 10^6/uL Hgb 12.7 (12.0-16.0) g/dL Hct 37.0 (36.0-48.0) % MCV 77.2 L (80.0-105.0) fl MCH 26.5 (25.0-35.0) pg MCHC 34.3 (31.0-37.0) g/dl RDW 13.9 (11.5-14.5) % Plt Count 320 (120.0-450.0) 10^3/uL MPV 9.2 (7.0-11.0) fl Gran % 90.9 H (50.0-68.0) % Lymph % (Auto) 4.3 L (22.0-35.0) % [place] % (Auto) 4.5 (1.0-6.0) % Eos % (Auto) 0.2 L (1.5-5.0) % Baso % (Auto) 0.1 (0.0-3.0) % Gran # 9.79 H (1.4-6.5) Lymph # (Auto) 0.5 L (1.2-3.4) [place] # (Auto) 0.5 (0.1-0.6) Eos # (Auto) 0.0 (0.0-0.7) Baso # (Auto) 0.01 (0.0-2.0) K/mm3 Neutrophils % (Manual) 84 H (50.0-70.0) % Band Neutrophils % 2 (0-2) % Lymphocytes % (Manual) 10 L (22.0-35.0) % Monocytes % (Manual) 4 (1.0-6.0) % Sodium 123 L (132-148) mmol/L Potassium 3.2 L (3.6-5.0) mmol/L Chloride 90 L (98-107) mmol/L Carbon Dioxide 25 (21-33) mmol/L Anion Gap 11 (10-20) BUN 13 (7-21) mg/dL Creatinine 0.6 L (0.7-1.2) mg/dl Est GFR ( Amer) > 60 Est GFR (Non-Af Amer) > 60 POC Glucose (mg/dL) 126 H (65-110) mg/dL Random Glucose 129 H (70-110) mg/dL Calcium 8.6 (8.4-10.5) mg/dL Phosphorus 3.0 (2.5-4.5) mg/dL Magnesium 2.0 (1.7-2.2) mg/dL Total Bilirubin 1.5 H (0.2-1.3) mg/dL AST 38 H (14-36) U/L ALT 21 (7-56) U/L Alkaline Phosphatase 128 H (38-126) U/L Total Protein 7.8 (5.8-8.3) g/dL Albumin 3.8 (3.0-4.8) g/dL Globulin 4.0 gm/dL Albumin/Globulin Ratio 1.0 L (1.1-1.8) Urine Osmolality (300-1000) mosm/kg Ur Random Sodium meq/L 02/17/18 02/17/18 02/16/18 Range/Units 02:00 00:15 22:02 WBC (4.5-11.0) 10^3/uL RBC (3.5-6.1) 10^6/uL Hgb (12.0-16.0) g/dL Hct (36.0-48.0) % MCV (80.0-105.0) fl MCH (25.0-35.0) pg MCHC (31.0-37.0) g/dl RDW (11.5-14.5) % Plt Count (120.0-450.0) 10^3/uL MPV (7.0-11.0) fl Gran % (50.0-68.0) % Lymph % (Auto) (22.0-35.0) % [place] % (Auto) (1.0-6.0) % Eos % (Auto) (1.5-5.0) % Baso % (Auto) (0.0-3.0) % Gran # (1.4-6.5) Lymph # (Auto) (1.2-3.4) [place] # (Auto) (0.1-0.6) Eos # (Auto) (0.0-0.7) Baso # (Auto) (0.0-2.0) K/mm3 Neutrophils % (Manual) (50.0-70.0) % Band Neutrophils % (0-2) % Lymphocytes % (Manual) (22.0-35.0) % Monocytes % (Manual) (1.0-6.0) % Sodium 124 L (132-148) mmol/L Potassium 3.4 L (3.6-5.0) mmol/L Chloride 90 L (98-107) mmol/L Carbon Dioxide 24 (21-33) mmol/L Anion Gap 13 (10-20) BUN 11 (7-21) mg/dL Creatinine 0.5 L (0.7-1.2) mg/dl Est GFR ( Amer) > 60 Est GFR (Non-Af Amer) > 60 POC Glucose (mg/dL) 142 H (65-110) mg/dL Random Glucose 153 H (70-110) mg/dL Calcium 8.4 (8.4-10.5) mg/dL Phosphorus (2.5-4.5) mg/dL Magnesium (1.7-2.2) mg/dL Total Bilirubin (0.2-1.3) mg/dL AST (14-36) U/L ALT (7-56) U/L Alkaline Phosphatase (38-126) U/L Total Protein (5.8-8.3) g/dL Albumin (3.0-4.8) g/dL Globulin gm/dL Albumin/Globulin Ratio (1.1-1.8) Urine Osmolality 265 L (300-1000) mosm/kg Ur Random Sodium 23 meq/L 02/16/18 02/16/18 02/16/18 Range/Units 21:58 18:02 16:05 WBC (4.5-11.0) 10^3/uL RBC (3.5-6.1) 10^6/uL Hgb (12.0-16.0) g/dL Hct (36.0-48.0) % MCV (80.0-105.0) fl MCH (25.0-35.0) pg MCHC (31.0-37.0) g/dl RDW (11.5-14.5) % Plt Count (120.0-450.0) 10^3/uL MPV (7.0-11.0) fl Gran % (50.0-68.0) % Lymph % (Auto) (22.0-35.0) % [place] % (Auto) (1.0-6.0) % Eos % (Auto) (1.5-5.0) % Baso % (Auto) (0.0-3.0) % Gran # (1.4-6.5) Lymph # (Auto) (1.2-3.4) [place] # (Auto) (0.1-0.6) Eos # (Auto) (0.0-0.7) Baso # (Auto) (0.0-2.0) K/mm3 Neutrophils % (Manual) (50.0-70.0) % Band Neutrophils % (0-2) % Lymphocytes % (Manual) (22.0-35.0) % Monocytes % (Manual) (1.0-6.0) % Sodium 126 L 126 L (132-148) mmol/L Potassium 3.5 L 3.2 L (3.6-5.0) mmol/L Chloride 93 L 90 L (98-107) mmol/L Carbon Dioxide 25 24 (21-33) mmol/L Anion Gap 12 15 (10-20) BUN 11 10 (7-21) mg/dL Creatinine 0.5 L 0.5 L (0.7-1.2) mg/dl Est GFR ( Amer) > 60 > 60 Est GFR (Non-Af Amer) > 60 > 60 POC Glucose (mg/dL) 89 (65-110) mg/dL Random Glucose 144 H 147 H (70-110) mg/dL Calcium 8.6 9.1 (8.4-10.5) mg/dL Phosphorus (2.5-4.5) mg/dL Magnesium (1.7-2.2) mg/dL Total Bilirubin (0.2-1.3) mg/dL AST (14-36) U/L ALT (7-56) U/L Alkaline Phosphatase (38-126) U/L Total Protein (5.8-8.3) g/dL Albumin (3.0-4.8) g/dL Globulin gm/dL Albumin/Globulin Ratio (1.1-1.8) Urine Osmolality (300-1000) mosm/kg Ur Random Sodium meq/L 02/16/18 02/16/18 02/15/18 Range/Units 11:32 07:46 22:14 WBC (4.5-11.0) 10^3/uL RBC (3.5-6.1) 10^6/uL Hgb (12.0-16.0) g/dL Hct (36.0-48.0) % MCV (80.0-105.0) fl MCH (25.0-35.0) pg MCHC (31.0-37.0) g/dl RDW (11.5-14.5) % Plt Count (120.0-450.0) 10^3/uL MPV (7.0-11.0) fl Gran % (50.0-68.0) % Lymph % (Auto) (22.0-35.0) % [place] % (Auto) (1.0-6.0) % Eos % (Auto) (1.5-5.0) % Baso % (Auto) (0.0-3.0) % Gran # (1.4-6.5) Lymph # (Auto) (1.2-3.4) [place] # (Auto) (0.1-0.6) Eos # (Auto) (0.0-0.7) Baso # (Auto) (0.0-2.0) K/mm3 Neutrophils % (Manual) (50.0-70.0) % Band Neutrophils % (0-2) % Lymphocytes % (Manual) (22.0-35.0) % Monocytes % (Manual) (1.0-6.0) % Sodium (132-148) mmol/L Potassium (3.6-5.0) mmol/L Chloride (98-107) mmol/L Carbon Dioxide (21-33) mmol/L Anion Gap (10-20) BUN (7-21) mg/dL Creatinine (0.7-1.2) mg/dl Est GFR ( Amer) Est GFR (Non-Af Amer) POC Glucose (mg/dL) 72 72 110 (65-110) mg/dL Random Glucose (70-110) mg/dL Calcium (8.4-10.5) mg/dL Phosphorus (2.5-4.5) mg/dL Magnesium (1.7-2.2) mg/dL Total Bilirubin (0.2-1.3) mg/dL AST (14-36) U/L ALT (7-56) U/L Alkaline Phosphatase (38-126) U/L Total Protein (5.8-8.3) g/dL Albumin (3.0-4.8) g/dL Globulin gm/dL Albumin/Globulin Ratio (1.1-1.8) Urine Osmolality (300-1000) mosm/kg Ur Random Sodium meq/L Laboratory Results - last 24 hr 02/15/18 02/16/18 02/16/18 22:14 07:46 11:32 WBC RBC Hgb Hct MCV MCH MCHC RDW Plt Count MPV Gran % Lymph % (Auto) [place] % (Auto) Eos % (Auto) Baso % (Auto) Gran # Lymph # (Auto) [place] # (Auto) Eos # (Auto) Baso # (Auto) Neutrophils % (Manual) Band Neutrophils % Lymphocytes % (Manual) Monocytes % (Manual) Sodium Potassium Chloride Carbon Dioxide Anion Gap BUN Creatinine Est GFR ( Amer) Est GFR (Non-Af Amer) POC Glucose (mg/dL) 110 72 72 Random Glucose Calcium Phosphorus Magnesium Total Bilirubin AST ALT Alkaline Phosphatase Total Protein Albumin Globulin Albumin/Globulin Ratio Urine Osmolality Ur Random Sodium 02/16/18 02/16/18 02/16/18 16:05 18:02 21:58 WBC RBC Hgb Hct MCV MCH MCHC RDW Plt Count MPV Gran % Lymph % (Auto) [place] % (Auto) Eos % (Auto) Baso % (Auto) Gran # Lymph # (Auto) [place] # (Auto) Eos # (Auto) Baso # (Auto) Neutrophils % (Manual) Band Neutrophils % Lymphocytes % (Manual) Monocytes % (Manual) Sodium 126 L 126 L Potassium 3.2 L 3.5 L Chloride 90 L 93 L Carbon Dioxide 24 25 Anion Gap 15 12 BUN 10 11 Creatinine 0.5 L 0.5 L Est GFR ( Amer) > 60 > 60 Est GFR (Non-Af Amer) > 60 > 60 POC Glucose (mg/dL) 89 Random Glucose 147 H 144 H Calcium 9.1 8.6 Phosphorus Magnesium Total Bilirubin AST ALT Alkaline Phosphatase Total Protein Albumin Globulin Albumin/Globulin Ratio Urine Osmolality Ur Random Sodium 02/16/18 02/17/18 02/17/18 22:02 00:15 02:00 WBC RBC Hgb Hct MCV MCH MCHC RDW Plt Count MPV Gran % Lymph % (Auto) [place] % (Auto) Eos % (Auto) Baso % (Auto) Gran # Lymph # (Auto) [place] # (Auto) Eos # (Auto) Baso # (Auto) Neutrophils % (Manual) Band Neutrophils % Lymphocytes % (Manual) Monocytes % (Manual) Sodium 124 L Potassium 3.4 L Chloride 90 L Carbon Dioxide 24 Anion Gap 13 BUN 11 Creatinine 0.5 L Est GFR ( Amer) > 60 Est GFR (Non-Af Amer) > 60 POC Glucose (mg/dL) 142 H Random Glucose 153 H Calcium 8.4 Phosphorus Magnesium Total Bilirubin AST ALT Alkaline Phosphatase Total Protein Albumin Globulin Albumin/Globulin Ratio Urine Osmolality 265 L Ur Random Sodium 23 02/17/18 02/17/18 02/17/18 05:00 05:00 06:01 WBC 10.8 D RBC 4.79 Hgb 12.7 Hct 37.0 MCV 77.2 L MCH 26.5 MCHC 34.3 RDW 13.9 Plt Count 320 MPV 9.2 Gran % 90.9 H Lymph % (Auto) 4.3 L [place] % (Auto) 4.5 Eos % (Auto) 0.2 L Baso % (Auto) 0.1 Gran # 9.79 H Lymph # (Auto) 0.5 L [place] # (Auto) 0.5 Eos # (Auto) 0.0 Baso # (Auto) 0.01 Neutrophils % (Manual) 84 H Band Neutrophils % 2 Lymphocytes % (Manual) 10 L Monocytes % (Manual) 4 Sodium 123 L Potassium 3.2 L Chloride 90 L Carbon Dioxide 25 Anion Gap 11 BUN 13 Creatinine 0.6 L Est GFR ( Amer) > 60 Est GFR (Non-Af Amer) > 60 POC Glucose (mg/dL) 126 H Random Glucose 129 H Calcium 8.6 Phosphorus 3.0 Magnesium 2.0 Total Bilirubin 1.5 H AST 38 H ALT 21 Alkaline Phosphatase 128 H Total Protein 7.8 Albumin 3.8 Globulin 4.0 Albumin/Globulin Ratio 1.0 L Urine Osmolality Ur Random Sodium 02/17/18 02/17/18 02/17/18 10:00 13:06 13:50 WBC RBC Hgb Hct MCV MCH MCHC RDW Plt Count MPV Gran % Lymph % (Auto) [place] % (Auto) Eos % (Auto) Baso % (Auto) Gran # Lymph # (Auto) [place] # (Auto) Eos # (Auto) Baso # (Auto) Neutrophils % (Manual) Band Neutrophils % Lymphocytes % (Manual) Monocytes % (Manual) Sodium 125 L 124 L Potassium 3.9 4.3 Chloride 92 L 94 L Carbon Dioxide 26 22 Anion Gap 11 12 BUN 17 17 Creatinine 0.9 0.7 Est GFR ( Amer) > 60 > 60 Est GFR (Non-Af Amer) > 60 > 60 POC Glucose (mg/dL) 133 H Random Glucose 128 H 138 H Calcium 8.7 8.5 Phosphorus Magnesium Total Bilirubin 0.8 AST 33 ALT 21 Alkaline Phosphatase 116 Total Protein 7.4 Albumin 3.6 Globulin 3.8 Albumin/Globulin Ratio 1.0 L Urine Osmolality Ur Random Sodium Addendum Addendum: 02/17/18 17:27 ICU Attending Addendum Patient seen and examined. Case reviewed on round with housestaff. Agree with resident note above with the following additions/exceptions: 67 F with PMH of HTN, DM, Hypothyroidism, Hyponatremia, cachexia, odynophagia, s/p PEG tube placement admitted with severe hypoNA and possible seizures. Initially tx with 3%NS then stopped. possibly SIADH sodium responding appropriate in according to fluids she is now stable for transfer out of ICU Rest of care as above Tramaine Pan MD Pulmonary Critical Care and Sleep Medicine
--- NOTE | 2018-02-17 10:14 | CP.PCM.PN ---
<Christian Isaac - Last Filed: 02/17/18 10:00> Subjective - Date & Time of Evaluation Date of Evaluation: 02/17/18 Time of Evaluation: 10:00 - Subjective Subjective: PGY-2 medicine progress note for Dr Resendez. Patient has been agitated at times and has pulled out IV lines and kitchen. Upon exam she was non-verbal but arousable. She did not cooperate with our exam. Objective - Vital Signs/Intake and Output Vital Signs (last 24 hours): Temp Pulse Resp BP Pulse Ox 100 F H 88 21 106/49 L 97 02/17/18 04:00 02/17/18 06:00 02/17/18 06:00 02/17/18 06:00 02/17/18 06:00 Intake and Output: 02/17/18 02/17/18 06:59 18:59 Intake Total 1360 Output Total 850 Balance 510 - Medications Medications: Current Medications Atorvastatin Calcium (Lipitor) 10 mg PO DIN [facility] Last Admin: 02/16/18 18:07 Dose: 10 mg Bacitracin (Bacitracin) 0 ea TOP BID [facility] Last Admin: 02/16/18 18:06 Dose: 1 ea Sodium Chloride (Hypertonic Saline 3%) 500 mls @ 30 mls/hr IV .[id number] [facility] Last Admin: 02/15/18 08:32 Dose: 30 mls/hr Potassium Chloride (Potassium Chloride 10 Meq/100 Ml) 10 meq in 100 mls @ 50 mls/hr IVPB Q2H [facility] Stop: 02/17/18 10:59 Last Admin: 02/17/18 08:56 Dose: 50 mls/hr Potassium Chloride 40 meq/ (Sodium Chloride) 1,020 mls @ 100 mls/hr IV .[id number] [facility] Insulin Human Lispro (Humalog Low) 0 units SC ACHS [facility]; Protocol Last Admin: 02/16/18 22:07 Dose: Not Given Levothyroxine Sodium (Synthroid) 25 mcg PO 0600 [facility] Last Admin: 02/17/18 05:20 Dose: 25 mcg Lorazepam (Ativan) 1 mg IVP Q6H PRN; Protocol PRN Reason: Seizure activity Last Admin: 02/16/18 18:06 Dose: 1 mg Metoprolol Tartrate (Lopressor) 25 mg PO BID [facility] Last Admin: 02/15/18 09:44 Dose: Not Given Nystatin (Nystop Topical Powder) 0 gm TOP BID [facility] Last Admin: 02/16/18 17:57 Dose: 1 applic Pantoprazole Sodium (Protonix Inj) 40 mg IVP DAILY [facility] Last Admin: 02/16/18 10:11 Dose: 40 mg - Labs Labs: 02/17/18 05:00 02/17/18 05:00 - Additional Findings Additional findings: - Constitutional Appears: Non-toxic, No Acute Distress, Cachectic, Chronically Ill - Head Exam Head Exam: ATRAUMATIC, NORMAL INSPECTION, NORMOCEPHALIC - Eye Exam Eye Exam: EOMI, Normal appearance, PERRL - Respiratory Exam Respiratory Exam: NORMAL BREATHING PATTERN. absent: Accessory Muscle Use, Clear to Auscultation Bilateral (pt had referred upper airway sounds making lung assessment difficult), Respiratory Distress - Cardiovascular Exam Cardiovascular Exam: RRR, +S1, +S2. absent: Gallop, Rubs, Systolic Murmur - GI/Abdominal Exam GI & Abdominal Exam: Normal Bowel Sounds. absent: Distended, Firm Additional comments: Pt has G tube in place, with no surrounding erythema or discharge. Kitchen in place collecting normal appearing urine - Extremities Exam Extremities exam: Positive for: normal capillary refill, pedal pulses present. Negative for: pedal edema, tenderness - Neurological Exam Neurological exam: Altered (post-ictal) - Psychiatric Exam Additional comments: Pt is somnolent - Skin Skin Exam: Dry, Normal Color, Warm Assessment and Plan - Assessment and Plan (Free Text) Plan: Pt is a 67 yo F with pmhx of HTN, DM, hypothyroidism, hyponatremia, cachexia and odynophagia s/p PEG tube placement who is BIBA after family reported 2 episodes of nausea and vomiting and AMS. In ED pt has seizure and noted to be hyponatremic: Plan: 1. Hyponatremia: - check BMP q4h for Na - most recent 123. Continue BMP q4 - Insert PICC line - Urine Na, Urine osm, Serum osm showing improvement - TSH normal - strict ins and outs - Nephro consult - Mughni * holding NS temporarily; giving back 1L D5W over 5 hrs; restarting NS at 75 cc/hr thereafter (goal of 126-128 tomorrow morning) 2. Seizure likely 2/2 symptomatic hyponatremia: - No more seizures since initial episode - Ativan 1 q5mins for active seizures - Seizure precautions - Neurochecks q2 - Head of bed elevated to 30 degrees - G tube to suction to prevent aspiration - Aspiration precautions - Neuro consult - Dr Matute * Seizures secondary to hyponatremia - 02/14/18 CT Abdomen Pelvis with IV contrast- proper PEG tube placement, distended stomach and bladder, lumbar vertebral body compression fractures, Focal cortical scarring mid and lower pole regions right kidney - 02/16/18 CT head w/o contrast - no acute intracranial pathology; age related changes 3. Hypomagnesemia/Hypokalemia: - Repleted with 2mg IV mag as needed - Replete potassium as needed 4. Distended bladder: - Possible neurogenic bladder - Kitchen in place - Will continue to monitor 5. Fungal rash: - Located at the pannus and under breast folds - Nystatin powder 5. Hx of HTN: - Holding lopressor due to hypotension 6. Hx of hypothyroidism: - Cont home synthroid 25 mcg - TSH normal 7. Hx of DM: - HgbA1c - Will start tube feedings today - Sliding scale insulin - Daily Accuchecks - Lipid panel LDL elevated 8. Hx of cachexia s/p PEG tube: - Per daughter patient has not used PEG tube in months and she has been tolerating oral diet during that time - G tube in place - will start tube feedings today at rate 10ml/hr and monitor for residuals - GI consulted - Dr. Patterson - appreciate recommendations * PEG tube flushed and cleared of obstruction * OK to use tube for meds/feeds - distended stomach on initial imaging - dietary eval - bacitracin topical around PEG tube site twice a day 9. Hx of Odynophagia - NPO - patient did not comply with swallow eval - previous workup done with imaging and endoscopy - no etiology for odynophagia 10. Agitation/Refusal of Treatment - Psych consult - Dr Servin - Patient possibly lacking mental capacity to make her own health care decisions - Per daughter patient refuses to go to retirement 11. SIRS Criteria - low grade fever and low BP - Urine Cx negatie - F/U blood Cx 12. PPx: - GI: Protonix - DVT: SCDs Case seen and examined with Dr. Resendez. <Rell Resendez - Last Filed: 02/17/18 14:22> Objective - Vital Signs/Intake and Output Vital Signs (last 24 hours): Temp Pulse Resp BP Pulse Ox 98.1 F 78 18 114/70 75 L 02/17/18 12:00 02/17/18 14:10 02/17/18 14:10 02/17/18 14:00 02/17/18 14:10 Intake and Output: 02/17/18 02/17/18 06:59 18:59 Intake Total 1360 Output Total 850 Balance 510 - Medications Medications: Current Medications Atorvastatin Calcium (Lipitor) 10 mg PO DIN [facility] Last Admin: 02/16/18 18:07 Dose: 10 mg Bacitracin (Bacitracin) 0 ea TOP BID [facility] Last Admin: 02/17/18 11:47 Dose: 1 ea Sodium Chloride (Hypertonic Saline 3%) 500 mls @ 30 mls/hr IV .[id number] [facility] Last Admin: 02/15/18 08:32 Dose: 30 mls/hr Potassium Chloride 40 meq/ (Sodium Chloride) 1,020 mls @ 100 mls/hr IV .[id number] [facility] Insulin Human Lispro (Humalog Low) 0 units SC ACHS [facility]; Protocol Last Admin: 02/16/18 22:07 Dose: Not Given Levothyroxine Sodium (Synthroid) 25 mcg PO 0600 [facility] Last Admin: 02/17/18 05:20 Dose: 25 mcg Lorazepam (Ativan) 1 mg IVP Q6H PRN; Protocol PRN Reason: Seizure activity Last Admin: 02/16/18 18:06 Dose: 1 mg Metoprolol Tartrate (Lopressor) 25 mg PO BID [facility] Last Admin: 02/15/18 09:44 Dose: Not Given Nystatin (Nystop Topical Powder) 0 gm TOP BID [facility] Last Admin: 02/17/18 11:46 Dose: 1 applic Pantoprazole Sodium (Protonix Inj) 40 mg IVP DAILY [facility] Last Admin: 02/17/18 11:45 Dose: 40 mg - Labs Labs: 02/17/18 05:00 02/17/18 13:50 Attending/Attestation - Attestation I have personally seen and examined this patient.: Yes I have fully participated in the care of the patient.: Yes I have reviewed all pertinent clinical information, including history, physical exam and plan: Yes Notes (Text): 02/17/18 14:19 attending note; Patient seen and examined with resident in ICU. Patient is sedated. Patient had episodes of agitation. Currently on restraints. Vitals stable. Getting IV fluids. Patient is a is a 67 -year-old female with pmhx of HTN, DM, hypothyroidism, hyponatremia, cachexia and odynophagia s/p PEG tube placement who is BIBA after family reported 2 episodes of nausea and vomiting and altered mental status i. In ED pt had seizure and noted to be hyponatremic. 1.Severe hyponatremia; Currently on normal saline. sodium is 124 today. Patient is dehydrated/poor solute intake. nephrology evaluation appreciated. 2. History of psychiatric disorder; patient still with agitation. Continue Ativan when necessary. psychiatric evaluation requested. 3.status post PEG malfunction; GI evaluation appreciated. PEG has been flushed. We will start feeding. Speech and swallow evaluation appreciated. Patient is still confused and camila tated. Continue nothing by mouth. 4. hypothyroidism; continue Synthroid. 5. Fungal rash; continue nystatin cream. 6. Hypokalemia and hypomagnesemia; continue IV supplementation. 7.diabetes; continue regular insulin sliding scale. 7. Seizure disorder; secondary to electrolyte imbalance. CT head is negative. neurology evaluation appreciated. social media content manager evaluation requested. continue to monitor the patient closely in ICU.
[2018-02-17 11:14] LABS: ALBUMIN 3.6 g/dL (3.0-4.8); ALT/SGPT 21 U/L (7-56); AST/SGOT 33 U/L (14-36); BLOOD UREA NITROGEN 17 mg/dL (7-21); CALCIUM 8.7 mg/dL (8.4-10.5); GFR NON-AFRICAN AMERICAN > 60
[2018-02-17] MEDS: Nystatin 100,000 Units/gm Topical Pow(15 gm) TOP SCH ×2 (11:46→17:24)
[2018-02-17] MEDS: Bacitracin 500 Units/gm Oint Foilpak UD TOP SCH ×2 (11:47→17:24)
[2018-02-17 14:15] LABS: BLOOD UREA NITROGEN 17 mg/dL (7-21); CALCIUM 8.5 mg/dL (8.4-10.5); GFR NON-AFRICAN AMERICAN > 60
--- NOTE | 2018-02-17 22:33 | CP.PCM.PN ---
Subjective - Date & Time of Evaluation Date of Evaluation: 02/17/18 Time of Evaluation: 11:30 - Subjective Subjective: Patient agitated at times per nursing staff; pulled out kitchen and IV lines; Objective - Vital Signs/Intake and Output Vital Signs (last 24 hours): Temp Pulse Resp BP Pulse Ox 97.7 F 68 15 117/70 94 L 02/17/18 20:00 02/17/18 22:20 02/17/18 22:20 02/17/18 22:01 02/17/18 22:20 Intake and Output: 02/17/18 02/18/18 18:59 06:59 Intake Total 1370 Output Total 750 Balance 620 - Medications Medications: Current Medications Atorvastatin Calcium (Lipitor) 10 mg PO DIN [facility] Last Admin: 02/17/18 17:24 Dose: 10 mg Bacitracin (Bacitracin) 0 ea TOP BID [facility] Last Admin: 02/17/18 17:24 Dose: 1 ea Sodium Chloride (Hypertonic Saline 3%) 500 mls @ 30 mls/hr IV .[id number] [facility] Last Admin: 02/15/18 08:32 Dose: 30 mls/hr Potassium Chloride 40 meq/ (Sodium Chloride) 1,020 mls @ 100 mls/hr IV .[id number] [facility] Last Admin: 02/17/18 19:10 Dose: 100 mls/hr Insulin Human Lispro (Humalog Low) 0 units SC ACHS [facility]; Protocol Last Admin: 02/17/18 17:18 Dose: Not Given Levothyroxine Sodium (Synthroid) 25 mcg PO 0600 [facility] Last Admin: 02/17/18 05:20 Dose: 25 mcg Lorazepam (Ativan) 1 mg IVP Q6H PRN; Protocol PRN Reason: Seizure activity Last Admin: 02/16/18 18:06 Dose: 1 mg Metoprolol Tartrate (Lopressor) 25 mg PO BID [facility] Last Admin: 02/15/18 09:44 Dose: Not Given Nystatin (Nystop Topical Powder) 0 gm TOP BID [facility] Last Admin: 02/17/18 17:24 Dose: 1 applic Pantoprazole Sodium (Protonix Inj) 40 mg IVP DAILY [facility] Last Admin: 02/17/18 11:45 Dose: 40 mg - Labs Labs: 02/17/18 05:00 02/17/18 13:50 - Constitutional Appears: Non-toxic, No Acute Distress - Eye Exam Eye Exam: Normal appearance. absent: Scleral icterus - ENT Exam ENT Exam: Mucous Membranes Moist - Respiratory Exam Respiratory Exam: Clear to Ausculation Bilateral. absent: Respiratory Distress - Cardiovascular Exam Cardiovascular Exam: RRR, +S1, +S2 - GI/Abdominal Exam GI & Abdominal Exam: Soft. absent: Distended, Tenderness - Exam Exam: absent: Bladder Distension - Extremities Exam Additional comments: no leg edema; - Neurological Exam Neurological Exam: Alert, Awake - Psychiatric Exam Psychiatric exam: Normal Affect, Normal Mood. absent: Agitated - Skin Skin Exam: Warm. absent: Cyanosis Assessment and Plan (1) Hyponatremia Assessment & Plan: Etiology may be multifactorial; likely has volume depletion component as indicated by periods of polyuria after IVF given; may also have underlying mild SIADH; serum Na improving with isotonic IVF; -continue NS at 100 cc/hr; -decreasing tube feed flushes to 50 cc q12h; -avoid NSAIDS for pain (can potentiate effect of ADH); -monitor K level (hypokalemia currently resolved); Status: Acute (2) Altered mental status Status: Resolved
[2018-02-18] MEDS: Levothyroxine 25 MCG TAB PO SCH (05:21)
[2018-02-18 07:02] LABS: BASO # 0.03 K/mm3 (0.0-2.0); BASO % 0.5 % (0.0-3.0); EOS # 0.1 (0.0-0.7); EOS % 1.1 % (1.5-5.0); GRAN # 4.72 (1.4-6.5); GRAN % 72.3 % (50.0-68.0); HEMOGLOBIN 11.4 g/dL (12.0-16.0); LYMPH # 1.1 (1.2-3.4); LYMPH % 16.9 % (22.0-35.0); MEAN CELL VOLUME 79.6 fl (80.0-105.0); MEAN CORPUSCULAR HEMOGLOBIN 26.5 pg (25.0-35.0); MEAN CORPUSCULAR HGB CONC 33.2 g/dl (31.0-37.0); MEAN PLATELET VOLUME 9.2 fl (7.0-11.0); MONO # 0.6 (0.1-0.6); MONO % 9.2 % (1.0-6.0); RBC 4.31 10^6/uL (3.5-6.1); RED CELL DISTRIBUTION WIDTH 14.5 % (11.5-14.5); WHITE BLOOD COUNT 6.5 10^3/uL (4.5-11.0)
[2018-02-18 07:08] LABS: ALB/GLOB RATIO 0.9 (1.1-1.8); ALBUMIN 3.3 g/dL (3.0-4.8); ALT/SGPT 20 U/L (7-56); AST/SGOT 30 U/L (14-36); BLOOD UREA NITROGEN 15 mg/dL (7-21); CALCIUM 8.6 mg/dL (8.4-10.5); GFR NON-AFRICAN AMERICAN > 60
[2018-02-18] MEDS: Insulin Lispro (humaLOG) LOW Coverage SC SCH ×2 (07:30→12:16)
--- NOTE | 2018-02-18 07:56 | CP.PCM.PN ---
<HurdLisa davis - Last Filed: 02/18/18 16:56> Subjective - Date & Time of Evaluation Date of Evaluation: 02/18/18 Time of Evaluation: 08:00 - Subjective Subjective: Internal Medicine progress note for Dr. Hilliard patient seen and examined this am at bedside. No acute events overnight per nursing. Patient is stil only oriented to self and is confused. She otherwise denies ROQUE, CP, SOB, abdominal pain, dsyuria, constipation, diarrhea and extremity pain/ weakness. She does endorse increased hunger and thirst. Objective - Vital Signs/Intake and Output Vital Signs (last 24 hours): Temp Pulse Resp BP Pulse Ox 97.3 F L 60 22 117/53 L 96 02/18/18 04:00 02/18/18 06:00 02/18/18 06:00 02/18/18 06:00 02/18/18 06:00 Intake and Output: 02/18/18 02/18/18 06:59 18:59 Intake Total 1420 Output Total 650 Balance 770 - Medications Medications: Current Medications Atorvastatin Calcium (Lipitor) 10 mg PO DIN [facility] Last Admin: 02/17/18 17:24 Dose: 10 mg Bacitracin (Bacitracin) 0 ea TOP BID [facility] Last Admin: 02/17/18 17:24 Dose: 1 ea Sodium Chloride (Hypertonic Saline 3%) 500 mls @ 30 mls/hr IV .[id number] [facility] Last Admin: 02/15/18 08:32 Dose: 30 mls/hr Potassium Chloride 40 meq/ (Sodium Chloride) 1,020 mls @ 100 mls/hr IV .[id number] [facility] Last Admin: 02/18/18 05:21 Dose: 100 mls/hr Insulin Human Lispro (Humalog Low) 0 units SC ACHS [facility]; Protocol Last Admin: 02/17/18 22:00 Dose: Not Given Levothyroxine Sodium (Synthroid) 25 mcg PO 0600 [facility] Last Admin: 02/18/18 05:21 Dose: 25 mcg Lorazepam (Ativan) 1 mg IVP Q6H PRN; Protocol PRN Reason: Seizure activity Last Admin: 02/16/18 18:06 Dose: 1 mg Metoprolol Tartrate (Lopressor) 25 mg PO BID [facility] Last Admin: 02/15/18 09:44 Dose: Not Given Nystatin (Nystop Topical Powder) 0 gm TOP BID [facility] Last Admin: 02/17/18 17:24 Dose: 1 applic Pantoprazole Sodium (Protonix Inj) 40 mg IVP DAILY [facility] Last Admin: 02/17/18 11:45 Dose: 40 mg - Labs Labs: 02/18/18 06:40 02/18/18 06:40 - Constitutional Appears: Non-toxic, No Acute Distress, Older Than Stated Age, Cachectic, Chronically Ill - Eye Exam Eye Exam: EOMI - ENT Exam ENT Exam: Mucous Membranes Moist - Respiratory Exam Respiratory Exam: NORMAL BREATHING PATTERN - Cardiovascular Exam Cardiovascular Exam: REGULAR RHYTHM - GI/Abdominal Exam GI & Abdominal Exam: Soft. absent: Distended, Guarding, Tenderness Additional comments: PEg tube site CDI with clean dressing tube feeds running, tolerating well - Extremities Exam Extremities Exam: absent: Calf Tenderness, Pedal Edema - Neurological Exam Neurological Exam: Alert, Awake. absent: Oriented x3 (only to self) - Psychiatric Exam Psychiatric exam: Normal Affect, Normal Mood - Skin Skin Exam: Dry, Intact, Normal Color, Warm Assessment and Plan - Assessment and Plan (Free Text) Assessment: Pt is a 67 yo F with pmhx of HTN, DM, hypothyroidism, hyponatremia, cachexia and odynophagia s/p PEG tube placement admitted for severe hyponatremia, now resolving/ resolved, increasing tube feeds today and will f/u CLINICAL DATA ABSTRACTOR evaluation recs Plan: 1. Hyponatremia: - Na 132 this am will repeat BMP @1600 - Urine Na, Urine osm, Serum osm showing improvement - discontinued NS w/ K - TSH normal - strict ins and outs - Nephro consult - Mughni - ordered D5W @125 2. Seizure likely 2/2 symptomatic hyponatremia: - No more seizures since initial episode - Ativan 1 q5mins for active seizures - Seizure precautions - Neurochecks q2 - Head of bed elevated to 30 degrees - Aspiration precautions - Neuro consult - Dr Matute Seizures secondary to hyponatremia - 02/14/18 CT Abdomen Pelvis with IV contrast- proper PEG tube placement, distended stomach and bladder, lumbar vertebral body compression fractures, Focal cortical scarring mid and lower pole regions right kidney - 02/16/18 CT head w/o contrast - no acute intracranial pathology; age related changes 3. Hypomagnesemia/Hypokalemia: - Repleted with 2mg IV mag as needed - Replete potassium as needed 4. Distended bladder: - Possible neurogenic bladder - Kitchen removed d/t patient attempt to remove - pt voiding well on bedpan now - Will continue to monitor 5. Fungal rash: - Located at the pannus and under breast folds - Nystatin powder - improving 5. Hx of HTN: - Holding lopressor due to hypotension 6. Hx of hypothyroidism: - Cont home synthroid 25 mcg - TSH normal 7. Hx of DM: - HgbA1c 6.6 - c/w Tube feeds - Sliding scale insulin - Daily Accuchecks - Lipid panel LDL elevated 8. Hx of cachexia s/p PEG tube: - Per daughter patient has not used PEG tube in months and she has been tolerating oral diet during that time - G tube in place - will increase tube feeds to 30 mls/hr today - GI consulted - Dr. Patterson - appreciate recommendations PEG tube flushed and cleared of obstruction OK to use tube for meds/feeds - distended stomach on initial imaging - dietary eval - bacitracin topical around PEG tube site twice a day 9. Hx of Odynophagia - NPO - Patient now complying with swallow eval, CLINICAL DATA ABSTRACTOR recommending pureed/thin liquid diet for pleasure feeds - previous workup done with imaging and endoscopy - no etiology for odynophagia 10. Agitation/Refusal of Treatment - Psych consult - Dr Servin - Patient possibly lacking mental capacity to make her own health care decisions - Per daughter patient refuses to go to [facility] - pt refusing to see psych today will try again tomorrow 11. SIRS Criteria - Urine Cx negatie - Blood cx negative x 2 - MRSA negative 12. PPx: - GI: Protonix - DVT: SCDs Case seen and examined with Dr. Babak Hurd, PGY 1 <Kristan Hilliard R - Last Filed: 02/20/18 19:00> Objective - Vital Signs/Intake and Output Vital Signs (last 24 hours): Temp Pulse Resp BP Pulse Ox 97.5 F L 72 18 141/74 95 02/20/18 14:00 02/20/18 14:00 02/20/18 14:00 02/20/18 15:00 02/20/18 14:00 Intake and Output: 02/20/18 02/20/18 06:59 18:59 Intake Total 540 Output Total 540 Balance 0 - Medications Medications: Current Medications Atorvastatin Calcium (Lipitor) 10 mg PO DIN [facility] Last Admin: 02/20/18 17:51 Dose: 10 mg Bacitracin (Bacitracin) 0 ea TOP BID [facility] Last Admin: 02/20/18 17:51 Dose: 1 ea Levothyroxine Sodium (Synthroid) 25 mcg PO 0600 [facility] Last Admin: 02/20/18 05:36 Dose: 25 mcg Nystatin (Nystop Topical Powder) 0 gm TOP BID [facility] Last Admin: 02/20/18 17:51 Dose: 1 applic Pantoprazole Sodium (Protonix Inj) 40 mg IVP DAILY [facility] Last Admin: 02/20/18 10:39 Dose: 40 mg - Labs Labs: 02/20/18 07:20 02/20/18 07:20 Attending/Attestation - Attestation I have personally seen and examined this patient.: Yes I have fully participated in the care of the patient.: Yes I have reviewed all pertinent clinical information, including history, physical exam and plan: Yes Notes (Text): Patient seen and examined by me with resident at 9:20AM on 02/18/18. Case including HPI, physical exam, and assessment and plan discussed with resident. Agree with above with following additions/corrections. Patient is a 67-year-old female with past medical history significant for hypertension, type 2 diabetes, hypothyroidism, hyponatremia, cachexia, and odynophagia status post PEG tube placement was brought in by ambulance after family reported 2 episodes of nausea and vomiting and altered mental status. Patient states she is feeling ok. Patient only verbalizes certain things and has periods of confusion. Patient states she wants her PEG tube out and wants to eat. She denies chest pain or palpitations. Patient not answering other quest ions. Patient is afebrile. Physical exam: General: Awake and alert sitting up in bed in no acute distress HEENT: Normocephalic, atraumatic. Extraocular muscles intact, pupils equal and reactive, no scleral icterus. Oropharynx is pink. Positive dry mucous membranes. No pharyngeal erythema or exudate appreciated. Neck is supple Cardiovascular: Regular rhythm. Normal S1 and S2. No murmus, rubs, or gallops appreciated. Pulmonary: Normal respiratory effort. No rhonchi, rales, or wheezing appreciat ed. Gastrointestinal: Soft, nondistended. Nontender. Positive bowel sounds all 4 quadrants. No guarding.Positive PEG tube. Musculoskeletal: Moves all extremities. No calf tenderness. No edema appr eciated. Central nervous system: Awake and alert, answers some questions. Dermatologic: Skin warm and dry. Assessment and plan: Patient is a 58-year-old female with past medical history significant for hypertension, type 2 diabetes, hypothyroidism, hyponatremia, cachexia, and odynophagia status post PEG tube placement was brought in by ambulance after family reported 2 episodes of nausea and vomiting and altered mental status. 1. Hyponatremia. Resolved. Sodium 132. IV fluids stopped. Nephrology following, recommendations aprpeciated. Patient given D5W. Continue with fluid restrictions. 2. Seizure. Likely secondary to hyponatremia. Neurology following, recommendations appreciated. Head CT per radiologist showed no acute intracranial pathology, age related changes, no significant interval change. Continue Seizure precautions. 3. Nausea and vomiting. Resolved. CT abd/pelvis per radiologist showed no acute findings related to/accounting for clinical presentation. Continue with PEG feeds. 4. Hypomagnesemia/hypokalemia. Resolved. 5. Distended bladder. Likely had urinary retention. Patient removed kitchen and as been voiding well. Continue to monitor ins and outs. 6. Fungal rash below breast and abdominal folds. Continue with nystatin powder 7. Hypothyroidism. Continue synthroid 8. DM2. Continue Insulin sliding scale. HgbA1C 6.6. Continue to monitor accuchecks. 9. Odynophagia. Continue with PEG feeds. Will have patient evaluated by speech and swallow. GI following, recommendations appreciated 10. Agitation. Psych following, recommendations appreciated. 11. Hyperlipidemia. Continue lipitor. 12. DVT prophylaxis. SCDS 13. Patient is a full code.
[2018-02-18] MEDS: Bacitracin 500 Units/gm Oint Foilpak UD TOP SCH (09:03)
[2018-02-18] MEDS: Nystatin 100,000 Units/gm Topical Pow(15 gm) TOP SCH (09:04)
--- NOTE | 2018-02-18 13:36 | CP.PCM.PCO ---
Addendum Addendum: Patient refused to participate in an interview this morning. I will re-attempt in the AM on 02/19/18. 02/18/18 13:35
--- NOTE | 2018-02-18 18:13 | CP.PCM.PN ---
Subjective - Date & Time of Evaluation Date of Evaluation: 02/18/18 Time of Evaluation: 11:00 - Subjective Subjective: Passed swallow eval per rod piler, however, concern that PO feeds will not be enough given her history of odynophagia and so tube feeds need to be continued; tolerating soft diet; Objective - Vital Signs/Intake and Output Vital Signs (last 24 hours): Temp Pulse Resp BP Pulse Ox 98.2 F 79 46 H 121/50 L 99 02/18/18 12:00 02/18/18 13:00 02/18/18 13:00 02/18/18 12:00 02/18/18 13:00 Intake and Output: 02/18/18 02/18/18 06:59 18:59 Intake Total 1420 Output Total 650 Balance 770 - Medications Medications: Current Medications Atorvastatin Calcium (Lipitor) 10 mg PO DIN [facility] Last Admin: 02/17/18 17:24 Dose: 10 mg Bacitracin (Bacitracin) 0 ea TOP BID [facility] Last Admin: 02/18/18 09:03 Dose: 1 ea Levothyroxine Sodium (Synthroid) 25 mcg PO 0600 [facility] Last Admin: 02/18/18 05:21 Dose: 25 mcg Lorazepam (Ativan) 1 mg IVP Q6H PRN; Protocol PRN Reason: Seizure activity Last Admin: 02/16/18 18:06 Dose: 1 mg Nystatin (Nystop Topical Powder) 0 gm TOP BID [facility] Last Admin: 02/18/18 09:04 Dose: 1 applic Pantoprazole Sodium (Protonix Inj) 40 mg IVP DAILY [facility] Last Admin: 02/18/18 09:04 Dose: 40 mg - Labs Labs: 02/18/18 06:40 02/18/18 06:40 - Constitutional Appears: Non-toxic, No Acute Distress - Eye Exam Eye Exam: Normal appearance - ENT Exam ENT Exam: Mucous Membranes Moist - Respiratory Exam Respiratory Exam: Clear to Ausculation Bilateral. absent: Respiratory Distress - Cardiovascular Exam Cardiovascular Exam: RRR, +S1, +S2 - GI/Abdominal Exam GI & Abdominal Exam: Soft. absent: Distended, Tenderness - Extremities Exam Additional comments: no leg edema; - Neurological Exam Neurological Exam: Alert, Awake - Psychiatric Exam Psychiatric exam: Normal Mood. absent: Agitated - Skin Skin Exam: Warm. absent: Cyanosis Assessment and Plan (1) Hyponatremia Assessment & Plan: Etiology likely multifactorial; not true polydipsia as we would expect much lower urine osm; nevertheless, excessive PO water intake along with some component of volume depletion, as well as possible underlying SIADH, is likely cause; Serum Na corrected slightly faster than desired since yesterday (goal 6-8 meq over 24 hrs), however, overall rate in rise is acceptable and patient is out of danger zone for osmotic demyelination concern; -stopping isotonic saline; -giving 250 cc D5W this morning (will help lower potassium as well); will hold all IVF subsequently; -checking bmp in pm; -continue 1000 cc PO fluid restriction (is already getting free water with tube feeds); Status: Acute (2) Altered mental status Status: Resolved
[2018-02-19] MEDS: Levothyroxine 25 MCG TAB PO SCH (06:09)
[2018-02-19] MEDS: Bacitracin 500 Units/gm Oint Foilpak UD TOP SCH ×2 (09:25→17:28)
[2018-02-19] MEDS: Nystatin 100,000 Units/gm Topical Pow(15 gm) TOP SCH ×2 (09:26→17:25)
--- NOTE | 2018-02-19 12:58 | CP.PCM.PN ---
<Ede Rueda - Last Filed: 02/19/18 12:44> Subjective - Date & Time of Evaluation Date of Evaluation: 02/19/18 Time of Evaluation: 09:30 - Subjective Subjective: Medicine Progress Note for Hospitalist Service, Dr. Kristan Rueda, DO PGY-1 Pt seen and examined at bedside. AAOx1. Points to her throat, otherwise not too verbal on exam. When asked if her family visited her she said no. Further 12- point ROS and HPI unobtainable due to pt's current mental status. Objective - Vital Signs/Intake and Output Vital Signs (last 24 hours): Temp Pulse Resp BP Pulse Ox 98.2 F 62 20 126/61 98 02/19/18 06:00 02/19/18 06:00 02/19/18 06:00 02/19/18 06:00 02/19/18 06:00 Intake and Output: 02/19/18 02/19/18 06:59 18:59 Intake Total 240 Balance 240 - Medications Medications: Current Medications Atorvastatin Calcium (Lipitor) 10 mg PO DIN [facility] Last Admin: 02/17/18 17:24 Dose: 10 mg Bacitracin (Bacitracin) 0 ea TOP BID [facility] Last Admin: 02/19/18 09:25 Dose: 1 ea Levothyroxine Sodium (Synthroid) 25 mcg PO 0600 [facility] Last Admin: 02/19/18 06:09 Dose: 25 mcg Lorazepam (Ativan) 1 mg IVP Q6H PRN; Protocol PRN Reason: Seizure activity Last Admin: 02/16/18 18:06 Dose: 1 mg Nystatin (Nystop Topical Powder) 0 gm TOP BID [facility] Last Admin: 02/19/18 09:26 Dose: 1 applic Pantoprazole Sodium (Protonix Inj) 40 mg IVP DAILY [facility] Last Admin: 02/19/18 09:25 Dose: 40 mg - Labs Labs: 02/18/18 06:40 02/18/18 06:40 - Constitutional Appears: Non-toxic, No Acute Distress, Confused - Head Exam Head Exam: ATRAUMATIC, NORMOCEPHALIC - Eye Exam Eye Exam: EOMI, Normal appearance, PERRL - ENT Exam ENT Exam: Mucous Membranes Moist - Respiratory Exam Respiratory Exam: Clear to Ausculation Bilateral, NORMAL BREATHING PATTERN. absent: Rales, Rhonchi, Wheezes - Cardiovascular Exam Cardiovascular Exam: +S1, +S2. absent: Gallop, Rubs, Murmur - GI/Abdominal Exam GI & Abdominal Exam: Soft, Normal Bowel Sounds. absent: Distended, Guarding, Tenderness, Organomegaly - Extremities Exam Extremities Exam: Normal Capillary Refill, Normal Inspection. absent: Pedal Edema - Neurological Exam Neurological Exam: Alert, Awake Additional comments: Oriented x1 - Psychiatric Exam Psychiatric exam: Flat Affect Assessment and Plan - Assessment and Plan (Free Text) Assessment: Pt is a 67 yo F with pmhx of HTN, DM, hypothyroidism, hyponatremia, cachexia and odynophagia s/p PEG tube placement admitted for severe hyponatremia, now resolving/ resolved, c/w tube feeds, pt advanced to puree consistency diet as per TURBO ELECTRIC OPERATOR recs. Plan: 1. Hyponatremia: - Na 132 yesterday, pt refusing labs today - Urine Na, Urine osm, Serum osm showing improvement - D/c'd NS w/ K - TSH normal - Strict ins and outs - Nephro consult - Mughni - ordered D5W @125 -Fluid restriction, cont to monitor 2. Seizure likely 2/2 symptomatic hyponatremia: - No more seizures since initial episode - Ativan 1 q5mins for active seizures - Seizure precautions - Neurochecks q2 - Head of bed elevated to 30 degrees - Aspiration precautions - Neuro consult - Dr Matute Seizures secondary to hyponatremia - 02/14/18 CT Abdomen Pelvis with IV contrast- proper PEG tube placement, distended stomach and bladder, lumbar vertebral body compression fractures, Focal cortical scarring mid and lower pole regions right kidney - 02/16/18 CT head w/o contrast - no acute intracranial pathology; age related changes 3. Hypomagnesemia/Hypokalemia: - Repleted with 2mg IV mag as needed - Replete potassium as needed 4. Distended bladder: - Possible neurogenic bladder - Kitchen removed d/t patient attempt to remove - Pt voiding well on bedpan now - Will continue to monitor 5. Fungal rash: - Located at the pannus and under breast folds - Nystatin powder - improving 5. Hx of HTN: - Holding lopressor due to hypotension 6. Hx of hypothyroidism: - Cont home synthroid 25 mcg - TSH normal 7. Hx of DM: - HgbA1c 6.6 - c/w Tube feeds - Sliding scale insulin - Daily Accuchecks - Lipid panel LDL elevated 8. Hx of cachexia s/p PEG tube: - Per daughter patient has not used PEG tube in months and she has been tolerating oral diet during that time - G tube in place - will increase tube feeds to 30 mls/hr today - GI consulted - Dr. Patterson - appreciate recommendations PEG tube flushed and cleared of obstruction OK to use tube for meds/feeds - distended stomach on initial imaging - dietary eval - bacitracin topical around PEG tube site twice a day 9. Hx of Odynophagia - NPO - Patient now complying with swallow eval, TURBO ELECTRIC OPERATOR recommending pureed/thin liquid diet for pleasure feeds - previous workup done with imaging and endoscopy - no etiology for odynophagia 10. Agitation/Refusal of Treatment - Psych consult - Dr Servin - Patient possibly lacking mental capacity to make her own health care decisions - Per daughter patient refuses to go to [facility] 11. SIRS Criteria - Urine Cx negative - Blood cx negative x 2 - MRSA negative 12. PPx: - GI: Protonix - DVT: SCDs Pt seen, examined with, and plan discussed with Dr. Hilliard, attending physician. Ede Rueda DO PGY-1, Automotive Technician Instructor Pager #[phone] <Kristan Hilliard R - Last Filed: 02/21/18 08:38> Objective - Vital Signs/Intake and Output Vital Signs (last 24 hours): Temp Pulse Resp BP Pulse Ox 97.5 F L 72 18 141/74 95 02/20/18 14:00 02/20/18 14:00 02/20/18 14:00 02/20/18 15:00 02/20/18 14:00 Intake and Output: 02/21/18 02/21/18 06:59 18:59 Intake Total 240 Output Total 750 Balance -510 - Medications Medications: Current Medications Atorvastatin Calcium (Lipitor) 10 mg PO DIN [facility] Last Admin: 02/20/18 17:51 Dose: 10 mg Bacitracin (Bacitracin) 0 ea TOP BID [facility] Last Admin: 02/20/18 17:51 Dose: 1 ea Levothyroxine Sodium (Synthroid) 25 mcg PO 0600 [facility] Last Admin: 02/21/18 05:54 Dose: 25 mcg Nystatin (Nystop Topical Powder) 0 gm TOP BID [facility] Last Admin: 02/20/18 17:51 Dose: 1 applic Pantoprazole Sodium (Protonix Inj) 40 mg IVP DAILY [facility] Last Admin: 02/20/18 10:39 Dose: 40 mg - Labs Labs: 02/20/18 07:20 02/20/18 07:20 Attending/Attestation - Attestation I have personally seen and examined this patient.: Yes I have fully participated in the care of the patient.: Yes I have reviewed all pertinent clinical information, including history, physical exam and plan: Yes Notes (Text): Patient seen and examined by me with resident at 10AM on 02/19/17. Case including HPI, physical exam, and assessment and plan discussed with resident. Agree with above with following additions/corrections. Patient is a 67-year-old female with past medical history significant for hypertension, type 2 diabetes, hypothyroidism, hyponatremia, cachexia, and odynophagia status post PEG tube placement was brought in by ambulance after family reported 2 episodes of nausea and vomiting and altered mental status. Patient states she is not feeling great. Patient is unable to specify why. Patient has been taking in PO intake without any issues. She denies chest pain or palpitations. She denies any abdominal pain. Patient not answering other questions. Patient is afebrile. Physical exam: General: Awake and alert sitting up in bed in no acute distress HEENT: Normocephalic, atraumatic. Extraocular muscles intact, pupils equal and reactive, no scleral icterus. Oropharynx is pink. Positive dry mucous membranes. No pharyngeal erythema or exudate appreciated. Neck is supple Cardiovascular: Regular rhythm. Normal S1 and S2. No murmus, rubs, or gallops appreciated. Pulmonary: Normal respiratory effort. No rhonchi, rales, or wheezing appreciated. Gastrointestinal: Soft, nondistended. Nontender. Positive bowel sounds all 4 quadrants. No guarding.Positive PEG tube. Musculoskeletal: Moves all extremities. No calf tenderness. No edema appreciated. Central nervous system: Awake and alert, answers some questions. Dermatologic: Skin warm and dry. Assessment and plan: Patient is a 58-year-old female with past medical history significant for hypertension, type 2 diabetes, hypothyroidism, hyponatremia, cachexia, and odynophagia status post PEG tube placement was brought in by ambulance after family reported 2 episodes of nausea and vomiting and altered mental status. 1. Odynophagia. Continue with PEG feeds. Seen by speech and swallow who recommends purree consistency diet with thin liquids for pleasure. Continue aspiration precautions. 2. Hyponatremia. Resolved. Sodium 132. Patient refused labs today. IV fluids stopped. Nephrology following, recommendations appreciated Continue with fluid restrictions. 3. Seizure. Likely secondary to hyponatremia. Neurology following, recommendations appreciated. Head CT per radiologist showed no acute intracranial pathology, age related changes, no significant interval change. Continue Seizure precautions. 4. Nausea and vomiting. Resolved. CT abd/pelvis per radiologist showed no acute findings related to/accounting for clinical presentation. Continue with PEG feeds. 5. Hypomagnesemia/hypokalemia. Resolved. Patient refusing labs today 6. Distended bladder. Likely had urinary retention. Patient removed kitchen and as been voiding well. Continue to monitor ins and outs. 7. Fungal rash below breast and abdominal folds. Resolving. Continue with nystatin powder 8. Hypothyroidism. Continue synthroid 9. DM2. HgbA1C 6.6. Continue to monitor accuchecks. 10. Agitation. Psych following, recommendations appreciated. 11. Hyperlipidemia. Continue lipitor. 12. DVT prophylaxis. SCDS 13. Patient is a full code.
--- NOTE | 2018-02-19 19:58 | CON ---
DATE: 02/19/2018 HISTORY OF PRESENT ILLNESS: The patient is a 67-year-old Faroese female, who is recently admitted on 02/14/2018 after she was brought in by EMS by family members after 2 episodes of nausea, vomiting, and altered mental status. Psychiatry was counseled on her due to the patient's history of disorganization and questionable mental capacity. I reviewed prior [facility] notes. The patient has been consulted in the past and signed off in the past by Dr. Lopez. Specifically, the patient was considered to have a personality disorder as well as rule out psychosomatic complaints, and anxiety as well. The patient during her prior assessment by Dr. Lopez in July, the patient did not want psychiatric interventions and never verbalized . She also has a tendency of not wanted to be discharged medically. She seems very resistant to accept psychiatric help indicating that she is not crazy and she is not stupid. I attempted to review her yesterday and though she was conscious, she absolutely refused to speak with me. Today, she was a little bit more responsive; however, though the person having any psychiatric treatment or intervention in the care. It was very difficult for me to simply evaluate her at this time. She declined any psychiatric intervention including medications or transfer to psychiatric unit. She was not responding to internal stimuli. Her affect was notably constricted and she did admit to depression at one point; however, denied it later on. Ford is she was not very productive today. Scanning the notes by staff members indicated that the patient has been eating breakfast and has been eating demonstrating poor appetite. She has been oriented to 3 spheres, but refusing labs in the past 24 hours as well. At one point, she refused tube feedings, was able to actually ingest some of her meal. Her insight and judgment are considered to be limited at this evaluation. PAST PSYCHIATRIC HISTORY: The patient has been hospitalized twice for somatic delusions and anxiety including in May 2016 and January 2016. She was consulted on by Dr. Lopez who signed off twice as there was no further psychiatric education for intervention or the patient did not want any psychiatric intervention. 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 SOCIAL HISTORY: The patient is over 30 years to Brittany Pierre. She has 2 adult children. MEDICATIONS: Relevant psychiatric medications only include Ativan 1 mg IV every 6 hours p.r.n. IMPRESSION: Mood disorder, not otherwise specified; personality disorder by history; psychosomatic complaints by history; rule out major depression; rule out delirium. RECOMMENDATIONS: At this time, the patient defers on any further psychiatric management and she is unwilling to cooperate in full interview. I cannot determine if she requires psychiatric treatment even though she adamantly refuses it. I will continue to attempt to elicit her cooperation during my bedside visit; however, it appears that she is medically cleared, she should be screened for any indication for involuntary commitment and make an effort to also obtain her cooperation in this respect and she might be more willing to cooperate with if she is aware that involuntary commitment is on the table. Jennie Servin MD
--- NOTE | 2018-02-19 20:48 | CP.PCM.PN ---
Subjective - Date & Time of Evaluation Date of Evaluation: 02/19/18 Time of Evaluation: 12:00 - Subjective Subjective: Patient melancholic; indicating pain in her throat but finished her entire meal (pureed diet); refusing labs; Objective - Vital Signs/Intake and Output Vital Signs (last 24 hours): Temp Pulse Resp BP Pulse Ox 98.5 F 67 18 145/89 93 L 02/19/18 14:35 02/19/18 14:35 02/19/18 14:35 02/19/18 14:35 02/19/18 14:35 - Medications Medications: Current Medications Atorvastatin Calcium (Lipitor) 10 mg PO DIN [facility] Last Admin: 02/19/18 17:28 Dose: 10 mg Bacitracin (Bacitracin) 0 ea TOP BID [facility] Last Admin: 02/19/18 17:28 Dose: 1 ea Levothyroxine Sodium (Synthroid) 25 mcg PO 0600 [facility] Last Admin: 02/19/18 06:09 Dose: 25 mcg Lorazepam (Ativan) 1 mg IVP Q6H PRN; Protocol PRN Reason: Seizure activity Last Admin: 02/16/18 18:06 Dose: 1 mg Nystatin (Nystop Topical Powder) 0 gm TOP BID [facility] Last Admin: 02/19/18 17:25 Dose: 1 applic Pantoprazole Sodium (Protonix Inj) 40 mg IVP DAILY [facility] Last Admin: 02/19/18 09:25 Dose: 40 mg - Labs Labs: 02/18/18 06:40 02/18/18 06:40 - Constitutional Appears: Non-toxic, No Acute Distress - ENT Exam ENT Exam: Mucous Membranes Moist - Respiratory Exam Respiratory Exam: Clear to Ausculation Bilateral. absent: Respiratory Distress - Cardiovascular Exam Cardiovascular Exam: RRR, +S1, +S2 - GI/Abdominal Exam GI & Abdominal Exam: Soft. absent: Distended - Extremities Exam Additional comments: no leg edema - Neurological Exam Neurological Exam: Alert, Awake - Psychiatric Exam Psychiatric exam: absent: Agitated - Skin Skin Exam: Warm. absent: Cyanosis Assessment and Plan (1) Hyponatremia Assessment & Plan: Improved; no labs available to today; should continue 1500 cc daily PO fluid restriction; no need for IVF as patient is tolerating diet well and on tube feeds; Status: Acute (2) Altered mental status Status: Resolved
[2018-02-20] MEDS: Levothyroxine 25 MCG TAB PO SCH (05:36)
[2018-02-20 08:08] LABS: BASO # 0.04 K/mm3 (0.0-2.0); BASO % 0.6 % (0.0-3.0); EOS # 0.2 (0.0-0.7); EOS % 2.3 % (1.5-5.0); GRAN # 4.5 (1.4-6.5); GRAN % 63.4 % (50.0-68.0); HEMOGLOBIN 11.4 g/dL (12.0-16.0); LYMPH # 1.9 (1.2-3.4); LYMPH % 27.1 % (22.0-35.0); MEAN CELL VOLUME 81.5 fl (80.0-105.0); MEAN CORPUSCULAR HEMOGLOBIN 26.3 pg (25.0-35.0); MEAN CORPUSCULAR HGB CONC 32.3 g/dl (31.0-37.0); MONO # 0.5 (0.1-0.6); MONO % 6.6 % (1.0-6.0); RBC 4.33 10^6/uL (3.5-6.1); RED CELL DISTRIBUTION WIDTH 14.4 % (11.5-14.5); WHITE BLOOD COUNT 7.1 10^3/uL (4.5-11.0)
[2018-02-20 08:19] LABS: ALBUMIN 3.6 g/dL (3.0-4.8); ALT/SGPT 17 U/L (7-56); AST/SGOT 20 U/L (14-36); BLOOD UREA NITROGEN 18 mg/dL (7-21); CALCIUM 9.2 mg/dL (8.4-10.5); GFR NON-AFRICAN AMERICAN > 60
[2018-02-20] MEDS: Bacitracin 500 Units/gm Oint Foilpak UD TOP SCH ×2 (10:39→17:51)
[2018-02-20] MEDS: Nystatin 100,000 Units/gm Topical Pow(15 gm) TOP SCH ×2 (10:40→17:51)
--- NOTE | 2018-02-20 12:57 | CP.PCM.PCO ---
Addendum Addendum: Patient still refused to engage in a psychiatric interview even with aid of armenian translation. Dr. Lopez will f/u with patient tomorrow, 02/21/18. I have reviewed prior records, patient is more familiar with Dr. Lopez and may cooperate more readily. 02/20/18 11:25
--- NOTE | 2018-02-20 20:20 | CP.PCM.PN ---
Subjective - Date & Time of Evaluation Date of Evaluation: 02/20/18 Time of Evaluation: 11:00 - Subjective Subjective: Tolerating diet; Objective - Vital Signs/Intake and Output Vital Signs (last 24 hours): Temp Pulse Resp BP Pulse Ox 97.5 F L 72 18 141/74 95 02/20/18 14:00 02/20/18 14:00 02/20/18 14:00 02/20/18 15:00 02/20/18 14:00 - Medications Medications: Current Medications Atorvastatin Calcium (Lipitor) 10 mg PO DIN [facility] Last Admin: 02/20/18 17:51 Dose: 10 mg Bacitracin (Bacitracin) 0 ea TOP BID [facility] Last Admin: 02/20/18 17:51 Dose: 1 ea Levothyroxine Sodium (Synthroid) 25 mcg PO 0600 [facility] Last Admin: 02/20/18 05:36 Dose: 25 mcg Nystatin (Nystop Topical Powder) 0 gm TOP BID [facility] Last Admin: 02/20/18 17:51 Dose: 1 applic Pantoprazole Sodium (Protonix Inj) 40 mg IVP DAILY [facility] Last Admin: 02/20/18 10:39 Dose: 40 mg - Labs Labs: 02/20/18 07:20 02/20/18 07:20 - Constitutional Appears: Non-toxic, No Acute Distress - Eye Exam Eye Exam: Normal appearance - Respiratory Exam Respiratory Exam: Clear to Ausculation Bilateral. absent: Respiratory Distress - Cardiovascular Exam Cardiovascular Exam: RRR, +S1, +S2 - GI/Abdominal Exam GI & Abdominal Exam: Soft. absent: Distended, Tenderness - Extremities Exam Additional comments: no leg edema - Psychiatric Exam Psychiatric exam: absent: Agitated - Skin Skin Exam: Warm. absent: Cyanosis Assessment and Plan (1) Hyponatremia Assessment & Plan: Likely multifactorial (volume depletion along with possible component of mild SIADH as well as excess PO water intake); resolved with PO fluid restriction; continue to restrict PO fluids to <1.5L per day; Status: Acute (2) Altered mental status Status: Resolved
--- NOTE | 2018-02-20 20:58 | CP.PCM.PN ---
<Ede Rueda - Last Filed: 02/20/18 20:54> Subjective - Date & Time of Evaluation Date of Evaluation: 02/20/18 Time of Evaluation: 07:15 - Subjective Subjective: Medicine Progress Note for Hospitalist Service, Dr. Kristan Rueda, DO PGY-1 Pt seen and examined at bedside. Denies any acute complaints, but points to her throat stating that it hurts. Further HPI and ROS unobtainable due to pt's current mental status. No acute events reported overnight by staff. Objective - Vital Signs/Intake and Output Vital Signs (last 24 hours): Temp Pulse Resp BP Pulse Ox 97.5 F L 72 18 141/74 95 02/20/18 14:00 02/20/18 14:00 02/20/18 14:00 02/20/18 15:00 02/20/18 14:00 - Medications Medications: Current Medications Atorvastatin Calcium (Lipitor) 10 mg PO DIN [facility] Last Admin: 02/20/18 17:51 Dose: 10 mg Bacitracin (Bacitracin) 0 ea TOP BID [facility] Last Admin: 02/20/18 17:51 Dose: 1 ea Levothyroxine Sodium (Synthroid) 25 mcg PO 0600 [facility] Last Admin: 02/20/18 05:36 Dose: 25 mcg Nystatin (Nystop Topical Powder) 0 gm TOP BID [facility] Last Admin: 02/20/18 17:51 Dose: 1 applic Pantoprazole Sodium (Protonix Inj) 40 mg IVP DAILY [facility] Last Admin: 02/20/18 10:39 Dose: 40 mg - Labs Labs: 02/20/18 07:20 02/20/18 07:20 - Constitutional Appears: Non-toxic, No Acute Distress, Confused, Chronically Ill - Head Exam Head Exam: ATRAUMATIC, NORMOCEPHALIC - Eye Exam Eye Exam: EOMI, Normal appearance, PERRL - ENT Exam ENT Exam: Mucous Membranes Moist - Respiratory Exam Respiratory Exam: Clear to Ausculation Bilateral, NORMAL BREATHING PATTERN. absent: Rales, Rhonchi, Wheezes - Cardiovascular Exam Cardiovascular Exam: REGULAR RHYTHM, +S1, +S2. absent: Gallop, Rubs, Murmur - GI/Abdominal Exam GI & Abdominal Exam: Soft, Normal Bowel Sounds. absent: Distended, Guarding, Tenderness, Organomegaly - Extremities Exam Extremities Exam: Full ROM, Normal Capillary Refill, Normal Inspection. absent: Pedal Edema, Tenderness - Neurological Exam Neurological Exam: Alert, Awake Additional comments: Oriented x1 - Skin Skin Exam: Dry, Intact, Normal Color, Warm Assessment and Plan - Assessment and Plan (Free Text) Assessment: Pt is a 67 yo F with pmhx of HTN, DM, hypothyroidism, hyponatremia, cachexia and odynophagia s/p PEG tube placement admitted for severe hyponatremia, now resolving/ resolved, c/w tube feeds, pt advanced to puree consistency diet as per [employer] recs. Plan: 1. Hyponatremia: - Na 133 today - Urine Na, Urine osm, Serum osm showing improvement - D/c'd NS w/ K - TSH normal - Strict ins and outs - Nephro consult - Mughni - ordered D5W @125 -Fluid restriction, cont to monitor 2. Seizure likely 2/2 symptomatic hyponatremia: - No more seizures since initial episode - Ativan 1 q5mins for active seizures - Seizure precautions - Neurochecks q2 - Head of bed elevated to 30 degrees - Aspiration precautions - Neuro consult - Dr Matute Seizures secondary to hyponatremia - 02/14/18 CT Abdomen Pelvis with IV contrast- proper PEG tube placement, distended stomach and bladder, lumbar vertebral body compression fractures, Focal cortical scarring mid and lower pole regions right kidney - 02/16/18 CT head w/o contrast - no acute intracranial pathology; age related changes 3. Hypomagnesemia/Hypokalemia: - Repleted with 2mg IV mag as needed - Replete potassium as needed 4. Distended bladder: - Possible neurogenic bladder - Kitchen removed d/t patient attempt to remove - Pt voiding well on bedpan now - Will continue to monitor 5. Fungal rash: - Located at the pannus and under breast folds - Nystatin powder - improving 5. Hx of HTN: - Holding lopressor due to hypotension 6. Hx of hypothyroidism: - Cont home synthroid 25 mcg - TSH normal 7. Hx of DM: - HgbA1c 6.6 - c/w Tube feeds - Sliding scale insulin - Daily Accuchecks - Lipid panel LDL elevated 8. Hx of cachexia s/p PEG tube: - Per daughter patient has not used PEG tube in months and she has been tolerating oral diet during that time - G tube in place - c/w tube feeds to 30 mls/hr today - GI consulted - Dr. Patterson - appreciate recommendations PEG tube flushed and cleared of obstruction OK to use tube for meds/feeds - distended stomach on initial imaging - dietary eval - bacitracin topical around PEG tube site twice a day 9. Hx of Odynophagia - NPO - Patient now complying with swallow eval, [employer] recommending pureed/thin liquid diet for pleasure feeds - previous workup done with imaging and endoscopy - no etiology for odynophagia 10. Agitation/Refusal of Treatment - Psych consult - Dr Servin - Patient possibly lacking mental capacity to make her own health care decisions - Per daughter patient refuses to go to [facility] 11. SIRS Criteria - Urine Cx negative - Blood cx negative x 2 - MRSA negative 12. PPx: - GI: Protonix - DVT: SCDs Dispo: pending placement to rehab Pt seen, examined with, and plan discussed with Dr. Hilliard, attending physician. Ede Rueda DO PGY-1, [employer] Pager #[phone] <Kristan Hilliard R - Last Filed: 02/21/18 08:47> Objective - Vital Signs/Intake and Output Vital Signs (last 24 hours): Temp Pulse Resp BP Pulse Ox 97.5 F L 72 18 141/74 95 02/20/18 14:00 02/20/18 14:00 02/20/18 14:00 02/20/18 15:00 02/20/18 14:00 Intake and Output: 02/21/18 02/21/18 06:59 18:59 Intake Total 240 Output Total 750 Balance -510 - Medications Medications: Current Medications Atorvastatin Calcium (Lipitor) 10 mg PO DIN [facility] Last Admin: 02/20/18 17:51 Dose: 10 mg Bacitracin (Bacitracin) 0 ea TOP BID [facility] Last Admin: 02/20/18 17:51 Dose: 1 ea Levothyroxine Sodium (Synthroid) 25 mcg PO 0600 [facility] Last Admin: 02/21/18 05:54 Dose: 25 mcg Nystatin (Nystop Topical Powder) 0 gm TOP BID [facility] Last Admin: 02/20/18 17:51 Dose: 1 applic Pantoprazole Sodium (Protonix Inj) 40 mg IVP DAILY [facility] Last Admin: 02/20/18 10:39 Dose: 40 mg - Labs Labs: 02/20/18 07:20 02/20/18 07:20 Attending/Attestation - Attestation I have personally seen and examined this patient.: Yes I have fully participated in the care of the patient.: Yes I have reviewed all pertinent clinical information, including history, physical exam and plan: Yes Notes (Text): Patient seen and examined by me with resident at 11:30 AM on 02/20/17. Case including HPI, physical exam, and assessment and plan discussed with resident. Agree with above with following additions/corrections. Patient is a 67-year-old female with past medical history significant for hypertension, type 2 diabetes, hypothyroidism, hyponatremia, cachexia, and odynophagia status post PEG tube placement was brought in by ambulance after family reported 2 episodes of nausea and vomiting and altered mental status. Patient states she is feeling ok. Complains of of throat discomfort but state she's hungry and wants the pleasure feeds. She denies chest pain or palpitations. No abdominal pain. No nausea or vomiting. Patient not answering other questions. Patient is afebrile. Physical exam: General: Awake and alert sitting up in bed in no acute distress HEENT: Normocephalic, atraumatic. Extraocular muscles intact, pupils equal and reactive, no scleral icterus. Oropharynx is pink and moist. No pharyngeal erythema or exudate appreciated. Neck is supple Cardiovascular: Regular rhythm. Normal S1 and S2. No murmus, rubs, or gallops appreciated. Pulmonary: Normal respiratory effort. No rhonchi, rales, or wheezing appreciated. Gastrointestinal: Soft, nondistended. Nontender. Positive bowel sounds all 4 quadrants. No guarding.Positive PEG tube. Musculoskeletal: Moves all extremities. No calf tenderness. No edema appreciated. Central nervous system: Awake and alert, answers some questions. Dermatologic: Skin warm and dry. Assessment and plan: Patient is a 58-year-old female with past medical history significant for hypertension, type 2 diabetes, hypothyroidism, hyponatremia, cachexia, and odynophagia status post PEG tube placement was brought in by ambulance after family reported 2 episodes of nausea and vomiting and altered mental status. 1. Odynophagia. Continue with PEG feeds. Contiue purree consistency diet with thin liquids for pleasure as recommended by speech and swallow. Continue aspiration precautions. 2. Hyponatremia. Resolved. Sodium 133. Nephrology following, recommendations aprpeciated Continue with fluid restrictions. 3. Seizure. Likely secondary to hyponatremia. Neurology following, recommendations appreciated. Head CT per radiologist showed no acute intracr anial pathology, age related changes, no significant interval change. Continue Seizure precautions. 4. Nausea and vomiting. Resolved. CT abd/pelvis per radiologist showed no acute findings related to/accounting for clinical presentation. Continue with PEG feeds. 5. Hypomagnesemia/hypokalemia. Resolved. 6. Distended bladder. Likely had urinary retention. Patient removed kitchen and as been voiding well. Continue to monitor ins and outs. 7. Fungal rash below breast and abdominal folds. Resolving. Continue with nystatin powder 8. Hypothyroidism. Continue synthroid 9. DM2. HgbA1C 6.6. Continue to monitor accuchecks. 10. Agitation. Psych following, recommendations appreciated. 11. Hyperlipidemia. Continue lipitor. 12. DVT prophylaxis. SCDS 13. Patient is a full code.
[2018-02-21] MEDS: Levothyroxine 25 MCG TAB PO SCH (05:54)
[2018-02-21] MEDS: Nystatin 100,000 Units/gm Topical Pow(15 gm) TOP SCH ×2 (10:35→17:22)
[2018-02-21] MEDS: Bacitracin 500 Units/gm Oint Foilpak UD TOP SCH ×2 (10:36→17:22)
--- NOTE | 2018-02-21 14:14 | CP.PCM.PN ---
<NataliiaHerman - Last Filed: 02/21/18 14:11> Subjective - Date & Time of Evaluation Date of Evaluation: 02/21/18 Time of Evaluation: 14:11 - Subjective Subjective: Nephro progress note - Nataliia, PGY - 2 Patient seen and examined at bedside; no acute overnight events. Patient is doing well with no complaints. Objective - Vital Signs/Intake and Output Vital Signs (last 24 hours): Temp Pulse Resp BP Pulse Ox 98.7 F 61 18 117/64 96 02/21/18 06:00 02/21/18 06:00 02/21/18 06:00 02/21/18 06:00 02/21/18 06:00 Intake and Output: 02/21/18 02/21/18 06:59 18:59 Intake Total 240 Output Total 750 Balance -510 - Medications Medications: Current Medications Atorvastatin Calcium (Lipitor) 10 mg PO DIN [facility] Last Admin: 02/20/18 17:51 Dose: 10 mg Bacitracin (Bacitracin) 0 ea TOP BID [facility] Last Admin: 02/21/18 10:36 Dose: Not Given Levothyroxine Sodium (Synthroid) 25 mcg PO 0600 [facility] Last Admin: 02/21/18 05:54 Dose: 25 mcg Nystatin (Nystop Topical Powder) 0 gm TOP BID [facility] Last Admin: 02/21/18 10:35 Dose: 1 applic Pantoprazole Sodium (Protonix Inj) 40 mg IVP DAILY [facility] Last Admin: 02/21/18 10:36 Dose: 40 mg - Labs Labs: 02/20/18 07:20 02/20/18 07:20 - Constitutional Appears: Well - Head Exam Head Exam: ATRAUMATIC, NORMAL INSPECTION, NORMOCEPHALIC - Eye Exam Eye Exam: EOMI, Normal appearance, PERRL Pupil Exam: NORMAL ACCOMODATION, PERRL - ENT Exam ENT Exam: Mucous Membranes Moist, Normal Exam - Neck Exam Neck Exam: Full ROM, Normal Inspection. absent: Lymphadenopathy - Respiratory Exam Respiratory Exam: Clear to Ausculation Bilateral, NORMAL BREATHING PATTERN - Cardiovascular Exam Cardiovascular Exam: REGULAR RHYTHM, +S1, +S2. absent: Murmur - GI/Abdominal Exam GI & Abdominal Exam: Soft, Normal Bowel Sounds. absent: Tenderness - Extremities Exam Extremities Exam: Full ROM, Normal Capillary Refill, Normal Inspection. absent: Joint Swelling, Pedal Edema - Back Exam Back Exam: NORMAL INSPECTION - Neurological Exam Neurological Exam: Alert, Awake, CN II-XII Intact, Normal Gait, Oriented x3 - Psychiatric Exam Psychiatric exam: Normal Affect, Normal Mood - Skin Skin Exam: Dry, Intact, Normal Color, Warm Assessment and Plan (1) Hyponatremia Assessment & Plan: Continue with 1.5 L fluid restriction Status: Resolved <Linden Zuniga - Last Filed: 02/22/18 08:24> Objective - Vital Signs/Intake and Output Vital Signs (last 24 hours): Temp Pulse Resp BP Pulse Ox 98.9 F 72 18 126/76 100 02/21/18 23:00 02/21/18 23:00 02/21/18 23:00 02/21/18 23:00 02/21/18 23:00 Intake and Output: 02/22/18 02/22/18 06:59 18:59 Intake Total 520 Balance 520 - Medications Medications: Current Medications Atorvastatin Calcium (Lipitor) 10 mg PO DIN [facility] Last Admin: 02/21/18 17:22 Dose: 10 mg Bacitracin (Bacitracin) 0 ea TOP BID [facility] Last Admin: 02/21/18 17:22 Dose: 1 ea Ceftriaxone Sodium (Rocephin 1 Gram Ivpb) 1 gm in 100 mls @ 100 mls/hr IVPB DAILY [facility]; Protocol Levothyroxine Sodium (Synthroid) 25 mcg PO 0600 [facility] Last Admin: 02/22/18 06:39 Dose: 25 mcg Nystatin (Nystop Topical Powder) 0 gm TOP BID [facility] Last Admin: 02/21/18 17:22 Dose: 1 applic Pantoprazole Sodium (Protonix Inj) 40 mg IVP DAILY [facility] Last Admin: 02/21/18 10:36 Dose: 40 mg - Labs Labs: 02/20/18 07:20 02/20/18 07:20 Assessment and Plan (1) Hyponatremia Status: Resolved (2) Altered mental status Status: Resolved Attending/Attestation - Attestation I have personally seen and examined this patient.: Yes I have fully participated in the care of the patient.: Yes I have reviewed all pertinent clinical information, including history, physical exam and plan: Yes Notes (Text): Patient seen and examined; I agree with the resident's note as above with the following additions/edits: Patient admitted with severe hyponatremia, resolving; likely multifactorial in etiology with increased PO fluid intake likely contributory; mild SIADH suspected; mainstay of treatment is adequate PO fluid restriction to <1.5-2L per day; serum Na currently stabilized with fluid restriction alone; monitor for signs/symptoms of volume depletion (none currently);
[2018-02-21] MEDS ORDERED: Sodium Chloride 0.9% 500 ML IV STA (15:17)
--- NOTE | 2018-02-21 15:29 | CP.PCM.PN ---
<Ede Rueda - Last Filed: 02/21/18 15:25> Subjective - Date & Time of Evaluation Date of Evaluation: 02/21/18 Time of Evaluation: 07:45 - Subjective Subjective: Medicine Progress Note for Hospitalist Service, Dr. Kristan Rueda, DO PGY-1 Pt seen and examined at bedside. Unable to obtain HPI and ROS due to pt's current mental status and unwillingness to speak to me. No acute events reported overnight by staff. Objective - Vital Signs/Intake and Output Vital Signs (last 24 hours): Temp Pulse Resp BP Pulse Ox 101.7 F H 69 18 94/47 L 97 02/21/18 14:00 02/21/18 14:00 02/21/18 14:00 02/21/18 14:00 02/21/18 14:00 Intake and Output: 02/21/18 02/21/18 06:59 18:59 Intake Total 240 Output Total 750 Balance -510 - Medications Medications: Current Medications Atorvastatin Calcium (Lipitor) 10 mg PO DIN [facility] Last Admin: 02/20/18 17:51 Dose: 10 mg Bacitracin (Bacitracin) 0 ea TOP BID [facility] Last Admin: 02/21/18 10:36 Dose: Not Given Sodium Chloride (Sodium Chloride 0.9%) 500 mls @ 999 mls/hr IV .Q31M STA Stop: 02/21/18 15:47 Levothyroxine Sodium (Synthroid) 25 mcg PO 0600 [facility] Last Admin: 02/21/18 05:54 Dose: 25 mcg Nystatin (Nystop Topical Powder) 0 gm TOP BID [facility] Last Admin: 02/21/18 10:35 Dose: 1 applic Pantoprazole Sodium (Protonix Inj) 40 mg IVP DAILY [facility] Last Admin: 02/21/18 10:36 Dose: 40 mg - Labs Labs: 02/20/18 07:20 02/20/18 07:20 - Constitutional Appears: Non-toxic, No Acute Distress - Head Exam Head Exam: ATRAUMATIC, NORMOCEPHALIC - Eye Exam Eye Exam: EOMI, Normal appearance, PERRL - ENT Exam ENT Exam: Mucous Membranes Moist - Respiratory Exam Respiratory Exam: Clear to Ausculation Bilateral, NORMAL BREATHING PATTERN. absent: Rales, Rhonchi, Wheezes - Cardiovascular Exam Cardiovascular Exam: REGULAR RHYTHM, +S1, +S2. absent: Gallop, Rubs, Murmur - GI/Abdominal Exam GI & Abdominal Exam: Soft, Normal Bowel Sounds. absent: Distended, Tenderness, Organomegaly - Extremities Exam Extremities Exam: Full ROM, Normal Capillary Refill, Normal Inspection. absent: Pedal Edema, Tenderness - Neurological Exam Neurological Exam: Alert, Awake, CN II-XII Intact Additional comments: Oriented x1 - Skin Skin Exam: Dry, Intact, Normal Color, Warm Assessment and Plan - Assessment and Plan (Free Text) Assessment: Pt is a 67 yo F with pmhx of HTN, DM, hypothyroidism, hyponatremia, cachexia and odynophagia s/p PEG tube placement admitted for severe hyponatremia, now resolving/ resolved, c/w tube feeds, pt advanced to puree consistency diet as per AIRCRAFT [employer]ORER recs. Plan: 1. Hyponatremia: - Pt refused am labs, Na 133 yesterday - Urine Na, Urine osm, Serum osm showing improvement - D/c'd NS w/ K - TSH normal - Strict ins and outs - Nephro consult - Mughni - ordered D5W @125 -Fluid restriction, cont to monitor 2. Seizure likely 2/2 symptomatic hyponatremia: - No more seizures since initial episode - Ativan 1 q5mins for active seizures - Seizure precautions - Neurochecks q2 - Head of bed elevated to 30 degrees - Aspiration precautions - Neuro consult - Dr Matute Seizures secondary to hyponatremia - 02/14/18 CT Abdomen Pelvis with IV contrast- proper PEG tube placement, distended stomach and bladder, lumbar vertebral body compression fractures, Focal cortical scarring mid and lower pole regions right kidney - 02/16/18 CT head w/o contrast - no acute intracranial pathology; age related changes 3. Hypomagnesemia/Hypokalemia: - Repleted with 2mg IV mag as needed - Replete potassium as needed 4. Distended bladder: - Possible neurogenic bladder - Kitchen removed d/t patient attempt to remove - Pt voiding well on bedpan now - Will continue to monitor 5. Fungal rash: - Located at the pannus and under breast folds - Nystatin powder - improving 5. Hx of HTN: - Holding lopressor due to hypotension 6. Hx of hypothyroidism: - Cont home synthroid 25 mcg - TSH normal 7. Hx of DM: - HgbA1c 6.6 - c/w Tube feeds - Sliding scale insulin - Daily Accuchecks - Lipid panel LDL elevated 8. Hx of cachexia s/p PEG tube: - Per daughter patient has not used PEG tube in months and she has been tolerating oral diet during that time - G tube in place - c/w tube feeds to 30 mls/hr today - GI consulted - Dr. Patterson - appreciate recommendations PEG tube flushed and cleared of obstruction OK to use tube for meds/feeds - distended stomach on initial imaging - dietary eval - bacitracin topical around PEG tube site twice a day 9. Hx of Odynophagia - NPO - Patient now complying with swallow eval, [employer] recommending pureed/thin liquid diet for pleasure feeds - previous workup done with imaging and endoscopy - no etiology for odynophagia 10. Agitation/Refusal of Treatment - Psych consult - Dr Servin - Patient possibly lacking mental capacity to make her own health care decisions - Per daughter patient refuses to go to custodial 11. SIRS Criteria - Urine Cx negative - Blood cx negative x 2 - MRSA negative - Pt spiked temp of 101 today, given Tylenol x1 - Stat repeat blood and urine cxs ordered, STAT CXR, 500 cc bolus, Procal pending 12. PPx: - GI: Protonix - DVT: SCDs Pt seen, examined with, and plan discussed with Dr. Hilliard, attending physician. Ede Rueda DO PGY-1, Command Center Officer Pager #[phone] <Kristan Hilliard R - Last Filed: 02/24/18 18:11> Objective - Vital Signs/Intake and Output Vital Signs (last 24 hours): Temp Pulse Resp BP Pulse Ox 98.3 F 69 20 110/40 L 99 02/24/18 14:00 02/24/18 14:00 02/24/18 14:00 02/24/18 14:00 02/24/18 14:00 Intake and Output: 02/24/18 02/24/18 06:59 18:59 Intake Total 240 Balance 240 - Medications Medications: Current Medications Atorvastatin Calcium (Lipitor) 10 mg PO DIN [facility] Last Admin: 02/24/18 17:54 Dose: 10 mg Bacitracin (Bacitracin) 0 ea TOP BID [facility] Last Admin: 02/24/18 12:13 Dose: 1 ea Ceftriaxone Sodium (Rocephin 1 Gram Ivpb) 1 gm in 100 mls @ 100 mls/hr IVPB DAILY [facility]; Protocol Last Admin: 02/24/18 12:14 Dose: 100 mls/hr Levothyroxine Sodium (Synthroid) 25 mcg PO 0600 [facility] Last Admin: 02/24/18 06:52 Dose: 25 mcg Nystatin (Nystop Topical Powder) 0 gm TOP BID [facility] Last Admin: 02/24/18 17:55 Dose: 1 applic Pantoprazole Sodium (Protonix Inj) 40 mg IVP DAILY [facility] Last Admin: 02/24/18 12:10 Dose: 40 mg Polyethylene Glycol (Miralax) 17 gm PO DAILY PRN PRN Reason: Constipation - Labs Labs: 02/22/18 15:30 02/22/18 15:30 Attending/Attestation - Attestation I have personally seen and examined this patient.: Yes I have fully participated in the care of the patient.: Yes I have reviewed all pertinent clinical information, including history, physical exam and plan: Yes Notes (Text): Patient seen and examined by me with resident at 10AM on 02/21/17. Case including HPI, physical exam, and assessment and plan discussed with resident. Agree with above with following additions/corrections. Patient is a 67-year-old female with past medical history significant for hypertension, type 2 diabetes, hypothyroidism, hyponatremia, cachexia, and odynophagia status post PEG tube placement was brought in by ambulance after family reported 2 episodes of nausea and vomiting and altered mental status. Patient states she feels fine. No complaints of throat pain today. Patient sitting up in chair asking for her underwear. She denies chest pain or palpitations. No shortness of breath. No abdominal pain. No nausea or vomiting. No burning or pain wit urination. Patient not answering other questions. Patient is afebrile. Physical exam: General: Awake and alert sitting up in bed in no acute distress HEENT: Normocephalic, atraumatic. Extraocular muscles intact, pupils equal and reactive, no scleral icterus. Oropharynx is pink and moist. No pharyngeal erythema or exudate appreciated. Neck is supple Cardiovascular: Regular rhythm. Normal S1 and S2. No murmus, rubs, or gallops appreciated. Pulmonary: Normal respiratory effort. No rhonchi, rales, or wheezing appreciated. Gastrointestinal: Soft, nondistended. Nontender. Positive bowel sounds all 4 quadrants. No guarding. Positive PEG tube. Musculoskeletal: Moves all extremities. No calf tenderness. No edema appreciated. Central nervous system: Awake and alert, answers some questions. Dermatologic: Skin warm and dry. Assessment and plan: Patient is a 58-year-old female with past medical history significant for hypertension, type 2 diabetes, hypothyroidism, hyponatremia, cachexia, and odynophagia status post PEG tube placement was brought in by ambulance after family reported 2 episodes of nausea and vomiting and altered mental status. 1. Odynophagia. Continue with PEG feeds. Contiue purree consistency diet with thin liquids for pleasure feeds as recommended by speech and swallow. Continue aspiration precautions. 2. Hyponatremia. Resolved. Nephrology following, recommendations appreciated Continue with fluid restriction. 3. Seizure. Likely secondary to hyponatremia. No recurrent seizures. Neurology following, recommendations appreciated. Head CT per radiologist showed no acute intracranial pathology, age related changes, no significant interval change. Continue Seizure precautions. 4. Nauseaand vomiting. Resolved. CT abd/pelvis per radiologist showed no acute findings related to/accounting for clinical presentation. Continue with PEG feeds. 5. Hypomagnesemia/hypokalemia. Resolved. 6. Distended bladder. Likely had urinary retention. Patient removed kitchen and has been voiding well. Continue to monitor ins and outs. 7. Fungal rash below breast and abdominal folds. Resolved. 8. Hypothyroidism. Continue synthroid 9. DM2. HgbA1C 6.6. Continue to monitor accuchecks. 10. Agitation. Psych following, recommendations appreciated. 11. Hyperlipidemia. Continue lipitor. 12. DVT prophylaxis. SCDS 13. Patient is a full code.
--- NOTE | 2018-02-21 16:41 | RAD ---
Date of service: 02/21/2018 HISTORY: Fever COMPARISON: 02/15/2018. FINDINGS: LUNGS: The lungs are well inflated and clear. PLEURA: No pleural effusions or pneumothorax. CARDIOVASCULAR: There is moderate cardiomegaly. There are aortic atherosclerotic calcification present. OSSEOUS STRUCTURES: Within normal limits for the patient's age. VISUALIZED UPPER ABDOMEN: Normal. OTHER FINDINGS: None. IMPRESSION: No active pulmonary disease.
[2018-02-22 00:44] LABS: URINE BILIRUBIN NEGATIVE (NEGATIVE); URINE BLOOD TRACE-INTACT (NEGATIVE); URINE GLUCOSE (UA) NEGATIVE (NEGATIVE); URINE LEUKOCYTE ESTERASE MODERATE Leu/uL (NEGATIVE); URINE PROTEIN NEGATIVE mg/dL (<30 mg/dL); URINE UROBILINOGEN 0.2 E.U./dL (<1 E.U./dL)
[2018-02-22 00:49] LABS: URINE APPEARANCE SL CLOUDY (CLEAR); URINE COLOR YELLOW (YELLOW)
[2018-02-22 01:00] LABS: URINE BACTERIA MANY /hpf; URINE EPITHELIAL CELLS 0 - 2 /hpf (0-5); URINE RBC 0 - 2 /hpf (0-2); URINE WBC 20 - 25 /hpf (0-6)
[2018-02-22] MEDS: Levothyroxine 25 MCG TAB PO SCH (06:39)
--- NOTE | 2018-02-22 08:10 | CON ---
DATE: 02/21/2018 SUBJECTIVE: In short, the patient is a 67-year-old female with multiple medical issues including hypertension, diabetes, hypothyroidism, hyponatremia, cachexia, odynophagia, status post PEG tube placement. The patient was admitted on the medical side for evaluation of severe hyponatremia and seizure-like activity secondary to hyponatremia. This marketing underwriter is very familiar with this patient from the previous admission to the psychiatric inpatient unit which took place here in [place] in 2014. Back then, the patient presented to be anxious as well as delusional. This marketing underwriter tried multiple psychotropic medications as well as benzodiazepines; the patient was not improving at all. This marketing underwriter is also familiar with this patient on consultation services here in [place], and this patient is very well known to this marketing underwriter from the multiple emergency room visits as well as medical admissions as well as two psychiatric admissions. Please see previous notes for more detailed information. The patient was seen and examined, notes reviewed. As per Dr. Servin, she refused to talk to her on a few interactions. The patient was seen today. The patient presented to be alert, somewhat withdrawn, but the patient remembered this marketing underwriter. The patient complained of sore throat, but based on the previous history, the patient always complained of some "indigestion". The patient denied being depressed. Denied any thoughts of harming herself. Denied intent or plan. The patient reported that her is treating her well. The patient expressed no concerns and seems to be comfortable. The patient denied hearing voices, denied seeing things, denied paranoid ideation. As per collaterals from the nursing staff, the patient seems to be pleasant. Sometimes the patient refuses to have blood work done, but besides that the patient does not have any behavioral incidents. To compare with the previous admission, the patient presented much better. The patient seems to gain some weight at present and looks healthier. VITAL SIGNS: Reviewed. Temperature 98.7, pulse 61, blood pressure 117/64, respirations 18, oxygen saturation is 96. MEDICATIONS: Reviewed. The patient is on Lipitor, bacitracin, Synthroid, nystatin and Protonix. LABORATORY DATA: Reviewed. Most recent was from yesterday. Hemoglobin and hematocrit are 11.4 and 35.3. Chemistry reviewed; sodium 133, chloride 97. Urinalysis reviewed as well. Urine osmolality is 265 which is low. Microbiology reports reviewed. MENTAL STATUS EXAMINATION: The patient presented to be alert, knows that she is in the hospital. The patient complained of "indigestion" and is pointing to her throat. Mood described as so-so. Affect was constricted. Thought process concrete. Thought content; the patient does not present to be depressed or suicidal. The patient denied hearing voices, denied seeing things. Insight and judgment seems to be limited. Impulses are well controlled. IMPRESSION: Mood disorder, not otherwise specified. Rule out delusional disorder, rule out delirium; but to compare with previous admission, the patient presents much better. PLAN: Continue current management. Continue current medication. This marketing underwriter would suggest family meeting. The patient might benefit from placement because the patient is doing very well in a supervised setting but comes back to the hospital in a bad condition each and every time, but it is up to the primary care team as well as family as well as Electrical Sign Servicer. At present moment, the patient poses no imminent danger to self or others. Will sign off. Should you have any questions, give me a call back. Bev Lopez MD ALEXANDRO
[2018-02-22] MEDS: cefTRIAXone 1 gm 1 GM/100 ML BAG IVPB SCH (09:33)
[2018-02-22] MEDS: Bacitracin 500 Units/gm Oint Foilpak UD TOP SCH ×2 (09:34→17:34)
[2018-02-22] MEDS: Nystatin 100,000 Units/gm Topical Pow(15 gm) TOP SCH ×2 (09:36→17:34)
--- NOTE | 2018-02-22 13:07 | CP.PCM.PN ---
Subjective - Date & Time of Evaluation Date of Evaluation: 02/22/18 Time of Evaluation: 13:04 - Subjective Subjective: Nephro progress note - Nataliia, PGY - 2 Patient seen and examined at bedside; no acute overnight events. Patient is doing well, but states she wants better food; otherwise with no complaints. Objective - Vital Signs/Intake and Output Vital Signs (last 24 hours): Temp Pulse Resp BP Pulse Ox 97.9 F 68 18 109/58 L 97 02/22/18 06:00 02/22/18 06:00 02/22/18 06:00 02/22/18 06:00 02/22/18 06:00 Intake and Output: 02/22/18 02/22/18 06:59 18:59 Intake Total 520 Balance 520 - Medications Medications: Current Medications Atorvastatin Calcium (Lipitor) 10 mg PO DIN [facility] Last Admin: 02/21/18 17:22 Dose: 10 mg Bacitracin (Bacitracin) 0 ea TOP BID [facility] Last Admin: 02/22/18 09:34 Dose: 1 ea Ceftriaxone Sodium (Rocephin 1 Gram Ivpb) 1 gm in 100 mls @ 100 mls/hr IVPB DAILY [facility]; Protocol Last Admin: 02/22/18 09:33 Dose: 100 mls/hr Levothyroxine Sodium (Synthroid) 25 mcg PO 0600 [facility] Last Admin: 02/22/18 06:39 Dose: 25 mcg Nystatin (Nystop Topical Powder) 0 gm TOP BID [facility] Last Admin: 02/22/18 09:36 Dose: 1 applic Pantoprazole Sodium (Protonix Inj) 40 mg IVP DAILY [facility] Last Admin: 02/22/18 09:34 Dose: 40 mg - Labs Labs: 02/20/18 07:20 02/20/18 07:20 - Constitutional Appears: Well - Head Exam Head Exam: ATRAUMATIC, NORMAL INSPECTION, NORMOCEPHALIC - Eye Exam Eye Exam: EOMI, Normal appearance, PERRL Pupil Exam: NORMAL ACCOMODATION, PERRL - ENT Exam ENT Exam: Mucous Membranes Moist, Normal Exam - Neck Exam Neck Exam: Full ROM, Normal Inspection. absent: Lymphadenopathy - Respiratory Exam Respiratory Exam: Clear to Ausculation Bilateral, NORMAL BREATHING PATTERN - Cardiovascular Exam Cardiovascular Exam: REGULAR RHYTHM, +S1, +S2. absent: Murmur - GI/Abdominal Exam GI & Abdominal Exam: Soft, Normal Bowel Sounds. absent: Tenderness - Extremities Exam Extremities Exam: Full ROM, Normal Capillary Refill, Normal Inspection. absent: Joint Swelling, Pedal Edema - Back Exam Back Exam: NORMAL INSPECTION - Neurological Exam Neurological Exam: Alert, Awake, CN II-XII Intact, Normal Gait, Oriented x3 - Psychiatric Exam Psychiatric exam: Normal Affect, Normal Mood - Skin Skin Exam: Dry, Intact, Normal Color, Warm Assessment and Plan (1) Hyponatremia Assessment & Plan: Mild component of SIADH given U osm > 100 and U osm > S osm; Multifactorial Continue with 1.5L fluid restriction; Monitor for signs of volume or fluid depletion, of which there are currently none Status: Resolved (2) Altered mental status Status: Resolved
--- NOTE | 2018-02-22 14:24 | CP.PCM.PN ---
<Christian Isaac - Last Filed: 02/22/18 14:20> Subjective - Date & Time of Evaluation Date of Evaluation: 02/22/18 Time of Evaluation: 09:30 - Subjective Subjective: PGY-2 medicine progress note for Dr Kristan Hilliard No acute events overnight. Mrs Pierre refused bloodwork this morning. There were multiple small boxes of apple sauce on her tray - it was reinforced to her and nurse that fluid restrictions should be maintained at 1.5L per day. She complains of odynophagia but is tolerating a puree diet. She would not answer some of our questions - she was able to tell her she lives at home with her daughter and . Tubefeeds were running. Objective - Vital Signs/Intake and Output Vital Signs (last 24 hours): Temp Pulse Resp BP Pulse Ox 97.9 F 68 18 109/58 L 97 02/22/18 06:00 02/22/18 06:00 02/22/18 06:00 02/22/18 06:00 02/22/18 06:00 Intake and Output: 02/22/18 02/22/18 06:59 18:59 Intake Total 520 Balance 520 - Medications Medications: Current Medications Atorvastatin Calcium (Lipitor) 10 mg PO DIN [facility] Last Admin: 02/21/18 17:22 Dose: 10 mg Bacitracin (Bacitracin) 0 ea TOP BID [facility] Last Admin: 02/22/18 09:34 Dose: 1 ea Ceftriaxone Sodium (Rocephin 1 Gram Ivpb) 1 gm in 100 mls @ 100 mls/hr IVPB DAILY [facility]; Protocol Last Admin: 02/22/18 09:33 Dose: 100 mls/hr Levothyroxine Sodium (Synthroid) 25 mcg PO 0600 [facility] Last Admin: 02/22/18 06:39 Dose: 25 mcg Nystatin (Nystop Topical Powder) 0 gm TOP BID [facility] Last Admin: 02/22/18 09:36 Dose: 1 applic Pantoprazole Sodium (Protonix Inj) 40 mg IVP DAILY [facility] Last Admin: 02/22/18 09:34 Dose: 40 mg - Labs Labs: 02/20/18 07:20 02/20/18 07:20 - Additional Findings Additional findings: - Constitutional Appears: Non-toxic, No Acute Distress, Cachectic, Chronically Ill - Head Exam Head Exam: ATRAUMATIC, NORMAL INSPECTION, NORMOCEPHALIC - Eye Exam Eye Exam: EOMI, Normal appearance, PERRL - Respiratory Exam Respiratory Exam: NORMAL BREATHING PATTERN. absent: Accessory Muscle Use, Clear to Auscultation Bilateral (pt had referred upper airway sounds making lung assessment difficult), Respiratory Distress - Cardiovascular Exam Cardiovascular Exam: RRR, +S1, +S2. absent: Gallop, Rubs, Systolic Murmur - GI/Abdominal Exam GI & Abdominal Exam: Normal Bowel Sounds. absent: Distended, Firm Additional comments: Pt has G tube in place, with no surrounding erythema or discharge. - Extremities Exam Extremities exam: Positive for: normal capillary refill, pedal pulses present. Negative for: pedal edema, tenderness - Neurological Exam Neurological exam: Pt alert and awake however intermittently cooperative with answering questions - Skin Skin Exam: Dry, Normal Color, Warm Assessment and Plan - Assessment and Plan (Free Text) Plan: Pt is a 67 yo F with pmhx of HTN, DM, hypothyroidism, hyponatremia, cachexia and odynophagia s/p PEG tube placement admitted for severe hyponatremia, now resolv ing/ resolved, c/w tube feeds, pt advanced to puree consistency diet as per [employer]PER[employer] recs. Plan: Fever - Pt spiked temp of 101.7 on 02/21/2017 2:00PM and has been afebrile since, did not meet any other SIRS criteria * Stat repeat blood and urine cxs ordered, STAT CXR did not show any active disease, 500 cc bolus given, Procal pending * Patient still refusing blood draws * Rocephin 1g ivpb qd started 02/22/2017 * Has been afebrile since - Urine Cx negative 02/15/2018 negative - Blood cx 02/17/2018 negative x 2 after 5 days - MRSA 02/15/2018 negative Hyponatremia, Resolved: - Pt refused am labs, latest Na 133 02/20/2018 - Urine Na, Urine osm, Serum osm showing improvement - Received 500ml NS yesterday 02/21 for hypotension - TSH normal - Strict ins and outs - Nephro consult - Mughni - volume depletion component to hyponatremia; otherwise, recurrent history of 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 - Sodium corrected slowly with hypertonic saline and then normal saline - Fluid restrict to 1.5L per day Seizure likely 2/2 symptomatic hyponatremia: - No more seizures since initial episode - Ativan 1 q5mins for active seizures - Seizure precautions - Neurochecks q2 - Head of bed elevated to 30 degrees - Aspiration precautions - Neuro consult - Dr Matute Seizures secondary to hyponatremia - 02/14/18 CT Abdomen Pelvis with IV contrast- proper PEG tube placement, distended stomach and bladder, lumbar vertebral body compression fractures, Focal cortical scarring mid and lower pole regions right kidney - 02/16/18 CT head w/o contrast - no acute intracranial pathology; age related changes Agitation/Refusal of Treatment - Psych consult - Dr Servin - Latest psych encounter on 02/21/[address] Lopez * Dr Lopez recommends placement in supervised setting * Patient poses no imminent threat to self or others * Signed off - Patient possibly lacking mental capacity to make her own health care decisions - Per daughter patient refuses to go to long-term Hypomagnesemia/Hypokalemia, Resolved: - Repleted with 2mg IV mag as needed - Replete potassium as needed Distended bladder, Resolved: - Possible neurogenic bladder - Kitchen removed d/t patient attempt to remove - Pt voiding well on bedpan now - Will continue to monitor Fungal rash, Improving: - Located at the pannus and under breast folds - Nystatin powder topical powder BID - improving Hx of HTN: - Holding lopressor due to hypotension Hx of hypothyroidism: - Cont home synthroid 25 mcg - TSH normal Hx of DM: - HgbA1c 6.6 - c/w Tube feeds - Sliding scale insulin - Daily Accuchecks - Lipid panel LDL elevated Hx of cachexia s/p PEG tube: - Per daughter patient has not used PEG tube in months and she has been tolerating oral diet during that time - G tube in place - c/w tube feeds to 30 mls/hr - GI consulted - Dr. Patterson - appreciate recommendations PEG tube flushed and cleared of obstruction OK to use tube for meds/feeds - distended stomach on initial imaging - dietary eval - bacitracin topical around PEG tube site twice a day Hx of Odynophagia - Patient now complying with swallow eval, [employer] recommending pureed/thin liquid diet for pleasure feeds - previous workup done with imaging and endoscopy - no etiology for odynophagia Hx of HLD - continue lipitor 10mg po hs PPx: - GI: Protonix - DVT: SCDs Dispo: Physical therapy recommends [facility]. Case management currently in process of finding placement. Pt seen, examined with, and plan discussed with Dr. Hilliard, attending physician. <Kristan Hilliard R - Last Filed: 02/24/18 18:16> Objective - Vital Signs/Intake and Output Vital Signs (last 24 hours): Temp Pulse Resp BP Pulse Ox 98.3 F 69 20 110/40 L 99 02/24/18 14:00 02/24/18 14:00 02/24/18 14:00 02/24/18 14:00 02/24/18 14:00 Intake and Output: 02/24/18 02/24/18 06:59 18:59 Intake Total 240 Balance 240 - Medications Medications: Current Medications Atorvastatin Calcium (Lipitor) 10 mg PO DIN [facility] Last Admin: 02/24/18 17:54 Dose: 10 mg Bacitracin (Bacitracin) 0 ea TOP BID [facility] Last Admin: 02/24/18 12:13 Dose: 1 ea Ceftriaxone Sodium (Rocephin 1 Gram Ivpb) 1 gm in 100 mls @ 100 mls/hr IVPB DAILY [facility]; Protocol Last Admin: 02/24/18 12:14 Dose: 100 mls/hr Levothyroxine Sodium (Synthroid) 25 mcg PO 0600 [facility] Last Admin: 02/24/18 06:52 Dose: 25 mcg Nystatin (Nystop Topical Powder) 0 gm TOP BID [facility] Last Admin: 02/24/18 17:55 Dose: 1 applic Pantoprazole Sodium (Protonix Inj) 40 mg IVP DAILY [facility] Last Admin: 02/24/18 12:10 Dose: 40 mg Polyethylene Glycol (Miralax) 17 gm PO DAILY PRN PRN Reason: Constipation - Labs Labs: 02/22/18 15:30 02/22/18 15:30 Attending/Attestation - Attestation I have personally seen and examined this patient.: Yes I have fully participated in the care of the patient.: Yes I have reviewed all pertinent clinical information, including history, physical exam and plan: Yes Notes (Text): Patient seen and examined by me with resident at 9:05AM on 02/22/17. Case including HPI, physical exam, and assessment and plan discussed with resident. Agree with above with following additions/corrections. Patient is a 67-year-old female with past medical history significant for hypertension, type 2 diabetes, hypothyroidism, hyponatremia, cachexia, and odynophagia status post PEG tube placement was brought in by ambulance after family reported 2 episodes of nausea and vomiting and altered mental status. Patient states she is not feeling good. Complains again of throat discomfort which is chronic. Patient denies chest pain or palpitations. No shortness of breath. No abdominal pain. No nausea or vomiting. Patient not answering other questions. Patient is afebrile today. Patient did spike a fever of 101.7 yesterday afternoon. Physical exam: General: Awake and alert sitting up in bed in no acute distress HEENT: Normocephalic, atraumatic. Extraocular muscles intact, pupils equal and reactive, no scleral icterus. Oropharynx is pink and moist. No pharyngeal erythema or exudate appreciated. Neck is supple Cardiovascular: Regular rhythm. Normal S1 and S2. No murmus, rubs, or gallops appreciated. Pulmonary: Normal respiratory effort. No rhonchi, rales, or wheezing appreciated. Gastrointestinal: Soft, nondistended. Nontender. Positive bowel sounds all 4 quadrants. No guarding. Positive PEG tube. Musculoskeletal: Moves all extremities. No calf tenderness. No edema appreciated. Central nervous system: Awake and alert, answers some questions. Dermatologic: Skin warm and dry. Assessment and plan: Patient is a 58-year-old female with past medical history significant for hypertension, type 2 diabetes, hypothyroidism, hyponatremia, c achexia, and odynophagia status post PEG tube placement was brought in by ambulance after family reported 2 episodes of nausea and vomiting and altered mental status. 1. Fever. UTI. Urinalysis positive for UTI. Urine culture pending. Starting on Rocephin. Blood cultures pending. 2. Odynophagia. Continue with PEG feeds. Continue purree consistency diet with thin liquids for pleasure feeds only as recommended by speech and swallow. Continue aspiration precautions. 3. Hyponatremia. Resolved. Nephrology following, recommendations appreciated Continue with fluid restriction. 4. Seizure. Likely secondary to hyponatremia. No recurrent seizures. Neurology following, recommendations appreciated. Head CT per radiologist showed no acute intracranial pathology, age related changes, no significant interval change. Continue Seizure precautions. 5. Nauseaand vomiting. Resolved. CT abd/pelvis per radiologist showed no acute findings related to/accounting for clinical presentation. Continue with PEG feeds. 6. Hypomagnesemia/hypokalemia. Resolved. 7. Distended bladder. Resolved. Likely had urinary retention. Patient removed kitchen and has been voiding well. Continue to monitor ins and outs. 8. Fungal rash below breast and abdominal folds. Resolved. 9. Hypothyroidism. Continue synthroid 10. DM2. HgbA1C 6.6. Continue to monitor accuchecks. 11. Agitation. Psych following, recommendations appreciated. 12. Hyperlipidemia. Continue lipitor. 13. DVT prophylaxis. SCDS 14. Patient is a full code.
[2018-02-22 16:00] LABS: BASO # 0.04 K/mm3 (0.0-2.0); BASO % 0.5 % (0.0-3.0); EOS # 0.2 (0.0-0.7); GRAN # 5.06 (1.4-6.5); GRAN % 67.6 % (50.0-68.0); HEMOGLOBIN 11.5 g/dL (12.0-16.0); LYMPH # 1.6 (1.2-3.4); LYMPH % 20.8 % (22.0-35.0); MEAN CELL VOLUME 83.2 fl (80.0-105.0); MEAN CORPUSCULAR HEMOGLOBIN 26.1 pg (25.0-35.0); MEAN CORPUSCULAR HGB CONC 31.4 g/dl (31.0-37.0); MEAN PLATELET VOLUME 9.5 fl (7.0-11.0); MONO # 0.7 (0.1-0.6); MONO % 9.1 % (1.0-6.0); RBC 4.4 10^6/uL (3.5-6.1); RED CELL DISTRIBUTION WIDTH 14.3 % (11.5-14.5); WHITE BLOOD COUNT 7.5 10^3/uL (4.5-11.0)
[2018-02-22 16:48] LABS: ALBUMIN 3.8 g/dL (3.0-4.8); ALT/SGPT 19 U/L (7-56); AST/SGOT 16 U/L (14-36); BLOOD UREA NITROGEN 26 mg/dL (7-21); CALCIUM 8.9 mg/dL (8.4-10.5); GFR NON-AFRICAN AMERICAN > 60
[2018-02-23] MEDS: Levothyroxine 25 MCG TAB PO SCH (06:02)
[2018-02-23] MEDS: Bacitracin 500 Units/gm Oint Foilpak UD TOP SCH ×3 (10:00→18:10)
[2018-02-23] MEDS ORDERED: POLYETHYLENE GLYCOL 3350 17 GM/Dose PACKET PO ONE (10:21)
--- NOTE | 2018-02-23 10:35 | CP.PCM.PN ---
<DeandraManuel - Last Filed: 02/23/18 10:31> Subjective - Date & Time of Evaluation Date of Evaluation: 02/23/18 Time of Evaluation: 10:32 - Subjective Subjective: Medicine Progress Note for Dr. Hilliard Patient seen and examined at bedside. No acute overnight events. Patient complaining of throat pain and constipation. Patient denies CP, SOB, n/v/d, abdominal pain, fever, chills, ROQUE, or dizziness. Objective - Vital Signs/Intake and Output Vital Signs (last 24 hours): Temp Pulse Resp BP Pulse Ox 97.7 F 66 20 120/70 98 02/23/18 06:00 02/23/18 06:00 02/23/18 06:00 02/23/18 06:00 02/23/18 06:00 Intake and Output: 02/23/18 02/23/18 06:59 18:59 Intake Total 410 Balance 410 - Medications Medications: Current Medications Atorvastatin Calcium (Lipitor) 10 mg PO DIN [facility] Last Admin: 02/22/18 17:34 Dose: 10 mg Bacitracin (Bacitracin) 0 ea TOP BID [facility] Last Admin: 02/22/18 17:34 Dose: 1 ea Ceftriaxone Sodium (Rocephin 1 Gram Ivpb) 1 gm in 100 mls @ 100 mls/hr IVPB DAILY [facility]; Protocol Last Admin: 02/22/18 09:33 Dose: 100 mls/hr Levothyroxine Sodium (Synthroid) 25 mcg PO 0600 [facility] Last Admin: 02/23/18 06:02 Dose: 25 mcg Nystatin (Nystop Topical Powder) 0 gm TOP BID [facility] Last Admin: 02/22/18 17:34 Dose: 1 applic Pantoprazole Sodium (Protonix Inj) 40 mg IVP DAILY [facility] Last Admin: 02/22/18 09:34 Dose: 40 mg Polyethylene Glycol (Miralax) 17 gm PO DAILY PRN PRN Reason: Constipation - Labs Labs: 02/22/18 15:30 02/22/18 15:30 - Constitutional Appears: No Acute Distress - Head Exam Head Exam: NORMAL INSPECTION - Eye Exam Eye Exam: Normal appearance, PERRL - ENT Exam ENT Exam: Mucous Membranes Moist, Normal Exam - Neck Exam Neck Exam: Normal Inspection - Respiratory Exam Respiratory Exam: Clear to Ausculation Bilateral. absent: Decreased Breath Sounds, Rales, Rhonchi, Wheezes, Respiratory Distress - Cardiovascular Exam Cardiovascular Exam: RRR, +S1, +S2. absent: Gallop, Rubs, Murmur - GI/Abdominal Exam GI & Abdominal Exam: Soft. absent: Distended, Guarding, Tenderness, Rebound Additional comments: PEG tube in place, no signs of erythema or discharge - Extremities Exam Extremities Exam: Normal Inspection - Back Exam Back Exam: NORMAL INSPECTION - Neurological Exam Neurological Exam: Alert, Awake, CN II-XII Intact - Psychiatric Exam Psychiatric exam: Normal Affect, Normal Mood - Skin Skin Exam: Dry, Intact, Normal Color, Warm Assessment and Plan - Assessment and Plan (Free Text) Assessment: Pt is a 67 yo F with pmhx of HTN, DM, hypothyroidism, hyponatremia, cachexia and odynophagia s/p PEG tube placement admitted for severe hyponatremia and seizure 2/2 hyponatremia in the ED. Hyponatremia has since resolved. On going evaluation for fever and positive urine culture, on antibiotics. PT recommending [facility], placement is pending. 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 - Fluid restrict to 1.5L per day Seizure likely 2/2 symptomatic hyponatremia: - No more seizures since initial episode - Ativan 1 q5mins for active seizures - Seizure precautions - Neurochecks q2 - Head of bed elevated to 30 degrees - Aspiration precautions - Neuro consult - Dr Matute: Seizures secondary to hyponatremia - 02/16/18 CT head w/o contrast - no acute intracranial pathology; age related changes Agitation/Refusal of Treatment - Psych consult - Dr Servin - Latest psych encounter on 02/21/[address] Lopez * Dr Lopez recommends placement in supervised setting * Patient poses no imminent threat to self or others * Signed off - Patient possibly lacking mental capacity to make her own health care decisions - Per daughter patient refuses to go to alf Hypomagnesemia/Hypokalemia, Resolved: - Repleted with 2mg IV mag as needed - Cont to monitor, replete as needed Distended bladder, Resolved: - 02/14/18 CT Abdomen Pelvis with IV contrast- proper PEG tube placement, distended stomach and bladder, lumbar vertebral body compression fractures, Focal cortical scarring mid and lower pole regions right kidney - Possible neurogenic bladder - Kitchen removed d/t patient attempt to remove - Pt voiding well on bedpan now - Will continue to monitor Fungal rash, Improving: - Located at the pannus and under breast folds - Nystatin powder topical powder BID - improving Hx of HTN: - Holding lopressor due to hypotension Hx of hypothyroidism: - Cont home synthroid 25 mcg - TSH normal Hx of DM: - HgbA1c 6.6 - c/w Tube feeds - Sliding scale insulin - Daily Accuchecks - Lipid panel LDL elevated Hx of cachexia s/p PEG tube: - Per daughter patient has not used PEG tube in months and she has been tolerating oral diet during that time - G tube in place - c/w tube feeds to 30 mls/hr - GI consulted - Dr. 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 Hilliard, attending physician. Cesario Liriano, DO PGY2 <Kristan Hilliard R - Last Filed: 02/24/18 18:21> Objective - Vital Signs/Intake and Output Vital Signs (last 24 hours): Temp Pulse Resp BP Pulse Ox 98.3 F 69 20 110/40 L 99 02/24/18 14:00 02/24/18 14:00 02/24/18 14:00 02/24/18 14:00 02/24/18 14:00 Intake and Output: 02/24/18 02/24/18 06:59 18:59 Intake Total 240 Balance 240 - Medications Medications: Current Medications Atorvastatin Calcium (Lipitor) 10 mg PO DIN [facility] Last Admin: 02/24/18 17:54 Dose: 10 mg Bacitracin (Bacitracin) 0 ea TOP BID [facility] Last Admin: 02/24/18 12:13 Dose: 1 ea Ceftriaxone Sodium (Rocephin 1 Gram Ivpb) 1 gm in 100 mls @ 100 mls/hr IVPB DAILY [facility]; Protocol Last Admin: 02/24/18 12:14 Dose: 100 mls/hr Levothyroxine Sodium (Synthroid) 25 mcg PO 0600 [facility] Last Admin: 02/24/18 06:52 Dose: 25 mcg Nystatin (Nystop Topical Powder) 0 gm TOP BID [facility] Last Admin: 02/24/18 17:55 Dose: 1 applic Pantoprazole Sodium (Protonix Inj) 40 mg IVP DAILY [facility] Last Admin: 02/24/18 12:10 Dose: 40 mg Polyethylene Glycol (Miralax) 17 gm PO DAILY PRN PRN Reason: Constipation - Labs Labs: 02/22/18 15:30 02/22/18 15:30 Attending/Attestation - Attestation I have personally seen and examined this patient.: Yes I have fully participated in the care of the patient.: Yes I have reviewed all pertinent clinical information, including history, physical exam and plan: Yes Notes (Text): Patient seen and examined by me with resident at 9:20AM on 02/23/17. Case including HPI, physical exam, and assessment and plan discussed with resident. Agree with above with following additions/corrections. Patient is a 67-year-old female with past medical history significant for hypertension, type 2 diabetes, hypothyroidism, hyponatremia, cachexia, and odynophagia status post PEG tube placement was brought in by ambulance after family reported 2 episodes of nausea and vomiting and altered mental status. Patient states she feels ok. Complains of no bowel movement for 2 days. Also complains of throat discomfort which is chronic. Patient denies chest pain or palpitations. No shortness of breath. No abdominal pain. No nausea or vomiting. Patient not answering other questions. Fevers resolved. Physical exam: General: Awake and alert sitting up in bed in no acute distress HEENT: Normocephalic, atraumatic. Extraocular muscles intact, pupils equal and reactive, no scleral icterus. Oropharynx is pink and moist. No pharyngeal eryth amarilis or exudate appreciated. Neck is supple Cardiovascular: Regular rhythm. Normal S1 and S2. No murmus, rubs, or gallops appreciated. Pulmonary: Normal respiratory effort. No rhonchi, rales, or wheezing appreciated. Gastrointestinal: Soft, nondistended. Nontender. Positive bowel sounds all 4 quadrants. No guarding. Positive PEG tube. Musculoskeletal: Moves all extremities. No calf tenderness. No edema appreciated. Central nervous system: Awake and alert, answers some questions. Dermatologic: Skin warm and dry. Assessment and plan: Patient is a 58-year-old female with past medical history significant for hypertension, type 2 diabetes, hypothyroidism, hyponatremia, cachexia, and odynophagia status post PEG tube placement was brought in by ambulance after family reported 2 episodes of nausea and vomiting and altered mental status. 1. Fever. UTI. Urinalysis positive for UTI. Urine culture pending. Continue Rocephin. Blood cultures pending. 2. Constipation. Will start on miralax. Monitor for bowel movement 3. Odynophagia. Continue with PEG feeds. Continue purree consistency diet with thin liquids for pleasure feeds only as recommended by speech and swallow. Continue aspiration precautions. 4. Hyponatremia. Resolved. Nephrology following, recommendations appreciated Continue with fluid restriction. 5. Seizure. Likely secondary to hyponatremia. No recurrent seizures. Neurology following, recommendations appreciated. Head CT per radiologist showed no acute intracranial pathology, age related changes, no significant interval change. Continue Seizure precautions. 6. Nauseaand vomiting. Resolved. CT abd/pelvis per radiologist showed no acute findings related to/accounting for clinical presentation. Continue with PEG feeds. 7. Hypomagnesemia/hypokalemia. Resolved. 8. Distended bladder. Resolved. Likely had urinary retention. Patient removed kitchen and has been voiding well. Continue to monitor ins and outs. 9. Fungal rash below breast and abdominal folds. Resolved. 10. Hypothyroidism. Continue synthroid 11. DM2. HgbA1C 6.6. Continue to monitor accuchecks. 12. Agitation. Psych following, recommendations appreciated. 13. Hyperlipidemia. Continue lipitor. 14. DVT prophylaxis. SCDS 15. Patient is a full code.
[2018-02-23] MEDS: Nystatin 100,000 Units/gm Topical Pow(15 gm) TOP SCH ×3 (12:02→18:11)
[2018-02-23] MEDS: cefTRIAXone 1 gm 1 GM/100 ML BAG IVPB SCH (12:05)
[2018-02-24] MEDS ORDERED: POLYETHYLENE GLYCOL 3350 17 GM/Dose PACKET PO PRN (05:00)
[2018-02-24] MEDS: Levothyroxine 25 MCG TAB PO SCH (06:52)
--- NOTE | 2018-02-24 11:43 | CP.PCM.PN ---
<Christian Isaac - Last Filed: 02/24/18 11:35> Subjective - Date & Time of Evaluation Date of Evaluation: 02/24/18 Time of Evaluation: 09:15 - Subjective Subjective: PGY-2 medicine progress note for Dr Resendez. No acute events overnight. She refused labs again this morning. Patient denied being in any pain or discomfort this morning. Denied fevers/chills, GI issues, urinary symptoms. She is tolerating her diet - still complains of odynaphagia. Objective - Vital Signs/Intake and Output Vital Signs (last 24 hours): Temp Pulse Resp BP Pulse Ox 98.1 F 73 20 134/63 98 02/24/18 06:00 02/24/18 06:00 02/24/18 06:00 02/24/18 06:00 02/24/18 06:00 Intake and Output: 02/24/18 02/24/18 06:59 18:59 Intake Total 240 Balance 240 - Medications Medications: Current Medications Atorvastatin Calcium (Lipitor) 10 mg PO DIN ON LICENSE OF [facility] Last Admin: 02/23/18 18:10 Dose: 10 mg Bacitracin (Bacitracin) 0 ea TOP BID LAUREN Last Admin: 02/23/18 18:10 Dose: 1 ea Ceftriaxone Sodium (Rocephin 1 Gram Ivpb) 1 gm in 100 mls @ 100 mls/hr IVPB DAILY ON LICENSE OF [facility]; Protocol Last Admin: 02/23/18 12:05 Dose: 100 mls/hr Levothyroxine Sodium (Synthroid) 25 mcg PO 0600 ON LICENSE OF [facility] Last Admin: 02/24/18 06:52 Dose: 25 mcg Nystatin (Nystop Topical Powder) 0 gm TOP BID LAUREN Last Admin: 02/23/18 18:11 Dose: 1 applic Pantoprazole Sodium (Protonix Inj) 40 mg IVP DAILY ON LICENSE OF [facility] Last Admin: 02/23/18 12:03 Dose: 40 mg Polyethylene Glycol (Miralax) 17 gm PO DAILY PRN PRN Reason: Constipation - Labs Labs: 02/22/18 15:30 02/22/18 15:30 - Additional Findings Additional findings: Pt is a 67 yo F with pmhx of HTN, DM, hypothyroidism, hyponatremia, cachexia and odynophagia s/p PEG tube placement admitted for severe hyponatremia, now resolving/ resolved, c/w tube feeds, pt advanced to puree consistency diet as per [employer] recs. Plan: UTI - Pt spiked temp of 101.7 on 02/21/2017 2:00PM and has been afebrile since, did not meet any other SIRS criteria * Stat repeat blood and urine cxs ordered, STAT CXR did not show any active disease, 500 cc bolus given, Procal normal * Urine Cx 02/22/2018 grew ecoli * Patient still refusing blood draws * Rocephin 1g ivpb qd started 02/22/2017 * Has been afebrile since - Urine Cx negative 02/15/2018 negative - Blood cx 02/17/2018 negative x 2 after 5 days - MRSA 02/15/2018 negative Hyponatremia, Resolved: - Pt refused am labs, latest Na 133 02/20/2018 - Urine Na, Urine osm, Serum osm showing improvement - Received 500ml NS yesterday 02/21 for hypotension - TSH normal - Strict ins and outs - Nephro consult - Mughni - volume depletion component to hyponatremia; otherwise, recurrent history of 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 - Sodium corrected slowly with hypertonic saline and then normal saline - Fluid restrict to 1.5L per day Seizure likely 2/2 symptomatic hyponatremia: - No more seizures since initial episode - Ativan 1 q5mins for active seizures - Seizure precautions - Neurochecks q2 - Head of bed elevated to 30 degrees - Aspiration precautions - Neuro consult - Dr Matute Seizures secondary to hyponatremia - 02/14/18 CT Abdomen Pelvis with IV contrast- proper PEG tube placement, distended stomach and bladder, lumbar vertebral body compression fractures, Focal cortical scarring mid and lower pole regions right kidney - 02/16/18 CT head w/o contrast - no acute intracranial pathology; age related changes Agitation/Refusal of Treatment - Psych consult - Dr Servin - Latest psych encounter on 02/21/[address] Lopez * Dr Lopez recommends placement in supervised setting * Patient poses no imminent threat to self or others * Signed off - Patient possibly lacking mental capacity to make her own health care decisions - Per daughter patient refuses to go to [facility] Hypomagnesemia/Hypokalemia, Resolved: - Repleted with 2mg IV mag as needed - Replete potassium as needed Distended bladder, Resolved: - Possible neurogenic bladder - Kitchen removed d/t patient attempt to remove - Pt voiding well on bedpan now - Will continue to monitor Fungal rash, Improving: - Located at the pannus and under breast folds - Nystatin powder topical powder BID - improving Hx of HTN: - Holding lopressor due to hypotension Hx of hypothyroidism: - Cont home synthroid 25 mcg - TSH normal Hx of DM: - HgbA1c 6.6 - c/w Tube feeds - Sliding scale insulin - Daily Accuchecks - Lipid panel LDL elevated Hx of cachexia s/p PEG tube: - Per daughter patient has not used PEG tube in months and she has been tolerating oral diet during that time - G tube in place - 3 bolus feedings per day with 50ml water flush after feeding - GI consulted - Dr. Patterson - appreciate recommendations PEG tube flushed and cleared of obstruction OK to use tube for meds/feeds - distended stomach on initial imaging - dietary eval - bacitracin topical around PEG tube site twice a day Hx of Odynophagia - Patient now complying with swallow eval, [employer] recommending pureed/thin liquid diet for pleasure feeds - previous workup done with imaging and endoscopy - no etiology for odynophagia Hx of HLD - continue lipitor 10mg po hs PPx: - GI: Protonix - DVT: SCDs Dispo: Physical therapy recommends [facility]. Case management currently in process of finding placement. Pt seen, examined with, and plan discussed with Dr. Resendez, attending physician. <Rell Resendez - Last Filed: 02/24/18 13:06> Objective - Vital Signs/Intake and Output Vital Signs (last 24 hours): Temp Pulse Resp BP Pulse Ox 98.1 F 73 20 134/63 98 02/24/18 06:00 02/24/18 06:00 02/24/18 06:00 02/24/18 06:00 02/24/18 06:00 Intake and Output: 02/24/18 02/24/18 06:59 18:59 Intake Total 240 Balance 240 - Medications Medications: Current Medications Atorvastatin Calcium (Lipitor) 10 mg PO DIN ON LICENSE OF [facility] Last Admin: 02/23/18 18:10 Dose: 10 mg Bacitracin (Bacitracin) 0 ea TOP BID ON LICENSE OF [facility] Last Admin: 02/24/18 12:13 Dose: 1 ea Ceftriaxone Sodium (Rocephin 1 Gram Ivpb) 1 gm in 100 mls @ 100 mls/hr IVPB DAILY ON LICENSE OF [facility]; Protocol Last Admin: 02/24/18 12:14 Dose: 100 mls/hr Levothyroxine Sodium (Synthroid) 25 mcg PO 0600 ON LICENSE OF [facility] Last Admin: 02/24/18 06:52 Dose: 25 mcg Nystatin (Nystop Topical Powder) 0 gm TOP BID ON LICENSE OF [facility] Last Admin: 02/24/18 12:10 Dose: 1 applic Pantoprazole Sodium (Protonix Inj) 40 mg IVP DAILY ON LICENSE OF [facility] Last Admin: 02/24/18 12:10 Dose: 40 mg Polyethylene Glycol (Miralax) 17 gm PO DAILY PRN PRN Reason: Constipation - Labs Labs: 02/22/18 15:30 02/22/18 15:30 Attending/Attestation - Attestation I have personally seen and examined this patient.: Yes I have fully participated in the care of the patient.: Yes I have reviewed all pertinent clinical information, including history, physical exam and plan: Yes Notes (Text): 02/24/18 12:54 Attending note; Patient seen and examined with resident. Patient is alert and awake. Not in any acute distress. Getting Peg tube feeding. Denies any nausea, vomiting. Denies any abdominal pain. Denies any fevers, chills. Patient is a 58-year-old female with past medical history significant for hypertension, type 2 diabetes, hypothyroidism, hyponatremia, cachexia, and odynophagia status post PEG tube placement is admitted for nausea and vomiting and altered mental status. found to have severe and hyponatremia. 1. Odynophagia. Continue with PEG feeds. we will change to bolus feeding and educate the patient and family about peg feeding. Initially the PEG tube was clogged. now flushing fine. Patient was seen by GI. Continue feedings. Continue puree consistency diet with thin liquids for pleasure as recommended by speech and swallow. Continue aspiration precautions. 2. Hyponatremia. Resolved. Continue with fluid restrictions. 3. Seizure. Likely secondary to hyponatremia. Neurology evaluation appreciated. Head CT showed no acute intracranial pathology, age related changes, no significant interval change. Continue Seizure precautions. 4. Nausea and vomiting. Resolved. CT abd/pelvis showed no acute findings related to/accounting for clinical presentation. Continue with PEG feeds. 5. Hypomagnesemia/hypokalemia. Resolved. 6. Distended bladder. Likely had urinary retention. Patient removed kitchen and as been voiding well. Continue to monitor ins and outs. 7. Fungal rash below breast and abdominal folds. Resolving. Continue with nystatin powder 8. Hypothyroidism. Continue synthroid 9. DM2. HgbA1C 6.6. Continue to monitor accuchecks. 10. Agitation. Psych following, recommendations appreciated. Mental status is improving. 11. Hyperlipidemia. Continue lipitor. 12. Fever; resolved. Repeat blood culture is negative. 13. Escherichia coli UTI; on IV Rocephin. Currently patient is afebrile. Patient refused repeat bloodwork. Physical therapy evaluation appreciated. [facility] is recommended. We will discuss with family caseworker tomorrow for subacute rehabilitation placement.
[2018-02-24] MEDS: Nystatin 100,000 Units/gm Topical Pow(15 gm) TOP SCH ×2 (12:10→17:55)
[2018-02-24] MEDS: Bacitracin 500 Units/gm Oint Foilpak UD TOP SCH ×2 (12:13→20:14)
[2018-02-24] MEDS: cefTRIAXone 1 gm 1 GM/100 ML BAG IVPB SCH (12:14)
[2018-02-24 16:25] VITALS: TEMP 98.3
[2018-02-25] MEDS: Levothyroxine 25 MCG TAB PO SCH (06:37)
[2018-02-25 08:47] VITALS: BP 129/73; PULSE 61; RESP 18; O2SAT 99
[2018-02-25] MEDS: Bacitracin 500 Units/gm Oint Foilpak UD TOP SCH (10:35)
[2018-02-25] MEDS: cefTRIAXone 1 gm 1 GM/100 ML BAG IVPB SCH (10:36)
[2018-02-25] MEDS: Nystatin 100,000 Units/gm Topical Pow(15 gm) TOP SCH (10:42)
--- NOTE | 2018-02-25 13:16 | CP.PCM.DIS ---
<Ede Rueda - Last Filed: 02/25/18 17:37> Provider - Provider Date of Admission: 02/15/18 02:57 Attending physician: Kristan Hilliard DO Consults: 02/15/18 04:09 Nephrology Consult Routine Comment: Consulting Provider: Linden Zuniga Consulting Physician: Linden Zuniga Reason for Consult: hyponatremia 02/15/18 07:07 Gastroenterology Consult Routine Comment: Consulting Provider: Washington Patterson V Consulting Physician: Washington Patterson V Reason for Consult: peg tube dysfunction, gastroparesis 02/15/18 07:26 Neurology Consult Routine Comment: Consulting Provider: Alex Matute Consulting Physician: Alex Matute Reason for Consult: Encephalopathy / Lethargy - Post-Ictal 2/2 HoNa Sz 02/17/18 06:50 Psychiatry Consult Routine Comment: Consulting Provider: Jennie Servin Consulting Physician: Jennie Servin Reason for Consult: questionable mental capacity 02/18/18 08:55 TCU [Evaluation for TRCU] Routine Comment: Physician Instructions: Reason For Exam: strengthening Time Spent in preparation of Discharge (in minutes): 45 Diagnosis - Discharge Diagnosis (1) S/P percutaneous endoscopic gastrostomy (PEG) tube placement Status: Chronic (2) Dysphagia Status: Chronic (3) Failure to thrive in adult Status: Resolved (4) Altered mental status Status: Resolved (5) Hyponatremia Status: Resolved Priority: High Hospital Course - Lab Results Lab Results: Micro Results 02/22/18 14:30 Blood Blood Culture - Preliminary NO GROWTH AFTER 48 HOURS 02/22/18 14:00 Blood Blood Culture - Preliminary NO GROWTH AFTER 48 HOURS 02/22/18 00:30 Urine,Clean Catch Urine Culture - Final Escherichia Coli 02/17/18 10:00 Blood Blood Culture - Final NO GROWTH AFTER 5 DAYS 02/17/18 10:00 Blood Gram Stain - Final TEST NOT PERFORMED 02/17/18 10:00 Blood Blood Culture - Final NO GROWTH AFTER 5 DAYS 02/17/18 10:00 Blood Gram Stain - Final TEST NOT PERFORMED 02/15/18 07:00 Naris MRSA Culture (Admit) - Final MRSA NOT DETECTED 02/15/18 03:37 Urine,Daniel Urine Culture - Final No Growth (<1,000 CFU/ML) Most Recent Lab Values WBC 7.5 10^3/uL (4.5-11.0) 02/22/18 15:30 RBC 4.40 10^6/uL (3.5-6.1) 02/22/18 15:30 Hgb 11.5 g/dL (12.0-16.0) L 02/22/18 15:30 Hct 36.6 % (36.0-48.0) 02/22/18 15:30 MCV 83.2 fl (80.0-105.0) 02/22/18 15:30 MCH 26.1 pg (25.0-35.0) 02/22/18 15: MCHC 31.4 g/dl (31.0-37.0) 02/22/18 15: RDW 14.3 % (11.5-14.5) 02/22/18 15:30 Plt Count 337 10^3/uL (120.0-450.0) 02/22/18 15: MPV 9.5 fl (7.0-11.0) 02/22/18 15:30 Gran % 67.6 % (50.0-68.0) 02/22/18 15:30 Lymph % (Auto) 20.8 % (22.0-35.0) L 02/22/18 15:30 [place] % (Auto) 9.1 % (1.0-6.0) H 02/22/18 15:30 Eos % (Auto) 2.0 % (1.5-5.0) 02/22/18 15:30 Baso % (Auto) 0.5 % (0.0-3.0) 02/22/18 15:30 Gran # 5.06 (1.4-6.5) 02/22/18 15:30 Lymph # (Auto) 1.6 (1.2-3.4) 02/22/18 15:30 [place] # (Auto) 0.7 (0.1-0.6) H 02/22/18 15:30 Eos # (Auto) 0.2 (0.0-0.7) 02/22/18 15:30 Baso # (Auto) 0.04 K/mm3 (0.0-2.0) 02/22/18 15:30 Neutrophils % (Manual) 84 % (50.0-70.0) H 02/17/18 05:00 Band Neutrophils % 2 % (0-2) 02/17/18 05:00 Lymphocytes % (Manual) 10 % (22.0-35.0) L 02/17/18 05:00 Monocytes % (Manual) 4 % (1.0-6.0) 02/17/18 05:00 Sodium 134 mmol/L (132-148) 02/22/18 15:30 Potassium 4.8 mmol/L (3.6-5.0) 02/22/18 15:30 Chloride 97 mmol/L (98-107) L 02/22/18 15:30 Carbon Dioxide 30 mmol/L (21-33) 02/22/18 15:30 Anion Gap 12 (10-20) 02/22/18 15:30 BUN 26 mg/dL (7-21) H 02/22/18 15:30 Creatinine 0.7 mg/dl (0.7-1.2) 02/22/18 15:30 Est GFR ( Amer) > 60 02/22/18 15:30 Est GFR (Non-Af Amer) > 60 02/22/18 15:30 POC Glucose (mg/dL) 180 mg/dL (65-110) H 02/25/18 06:44 Random Glucose 181 mg/dL (70-110) H 02/22/18 15:30 Hemoglobin A1c 6.6 % (4.2-6.5) H 02/15/18 05:40 Serum Osmolality 254 mosm/kg (272-300) L 02/15/18 05:40 Calcium 8.9 mg/dL (8.4-10.5) 02/22/18 15:30 Phosphorus 3.4 mg/dL (2.5-4.5) 02/18/18 06:40 Magnesium 2.0 mg/dL (1.7-2.2) 02/18/18 06:40 Total Bilirubin 0.2 mg/dL (0.2-1.3) 02/22/18 15:30 AST 16 U/L (14-36) 02/22/18 15:30 ALT 19 U/L (7-56) 02/22/18 15:30 Alkaline Phosphatase 119 U/L (38-126) 02/22/18 15:30 Total Protein 7.5 g/dL (5.8-8.3) 02/22/18 15:30 Albumin 3.8 g/dL (3.0-4.8) 02/22/18 15:30 Globulin 3.8 gm/dL 02/22/18 15:30 Albumin/Globulin Ratio 1.0 (1.1-1.8) L 02/22/18 15:30 Triglycerides 65 mg/dL (35-160) 02/15/18 05:40 Cholesterol 216 mg/dL (130-200) H 02/15/18 05:40 LDL Cholesterol Direct 136 mg/dL (0-129) H 02/15/18 05:40 HDL Cholesterol 51 mg/dL (29-60) 02/15/18 05:40 Procalcitonin < 0.05 NG/ML (0.19-0.49) L 02/22/18 15:30 TSH 3rd Generation 3.33 mIU/mL (0.46-4.68) 02/15/18 05:40 Urine Color Yellow (YELLOW) 02/22/18 00:30 Urine Appearance Sl cloudy (CLEAR) 02/22/18 00:30 Urine pH 6.0 (4.7-8.0) 02/22/18 00:30 Ur Specific [place] 1.015 (1.005-1.035) 02/22/18 00:30 Urine Protein Negative mg/dL (<30 mg/dL) 02/22/18 00:30 Urine Glucose (UA) Negative mg/dL (NEGATIVE) 02/22/18 00:30 Urine Ketones Negative mg/dL (NEGATIVE) 02/22/18 00:30 Urine Blood Trace-intact (NEGATIVE) H 02/22/18 00:30 Urine Nitrate Negative (NEGATIVE) 02/22/18 00:30 Urine Bilirubin Negative (NEGATIVE) 02/22/18 00:30 Urine Urobilinogen 0.2 E.U./dL (<1 E.U./dL) 02/22/18 00:30 Ur Leukocyte Esterase Moderate Nathalia/uL (NEGATIVE) H 02/22/18 00:30 Urine RBC 0 - 2 /hpf (0-2) 02/22/18 00:30 Urine WBC 20 - 25 /hpf (0-6) H 02/22/18 00:30 Ur Epithelial Cells 0 - 2 /hpf (0-5) 02/22/18 00:30 Urine Bacteria Many /hpf (NONE) 02/22/18 00:30 Urine Osmolality 265 mosm/kg (300-1000) L 02/17/18 00:15 Ur Random Sodium 23 meq/L 02/17/18 00:15 Ur Random Potassium 18.5 meq/L 02/15/18 03:37 - Hospital Course Hospital Course: HPI at time of admission: "Pt is a 67 yo F with pmhx of HTN, DM, hypothyroidism, hyponatremia, cachexia and odynophagia s/p PEG tube placement who is BIBA after family reported 2 episodes of nausea and vomiting and AMS. Pt had no further bouts of emesis while in transport or in ED. Pt in the ED was noted to be hyponatremic and sustained a seizure. She was given ativan and started on hypertonic saline. Pt at this time is post-ictal and AOx0, though is able to withdraw to pain and VSS. Hx was unable to obtained. Previous hx was obtained through chart review." Hospital Course: Pertinent imaging: - 02/14/18 CT Abdomen Pelvis with IV contrast- proper PEG tube placement, distended stomach and bladder, lumbar vertebral body compression fractures, Focal cortical scarring mid and lower pole regions right kidney - 02/16/18 CT head w/o contrast - no acute intracranial pathology; age related changes Pt was admitted for management of severe hyponatremia requiring ICU for further monitoring. Nephrology was consulted for management of hyponatremia (Dr. Zuniga), and pt was placed on fluid restriction. Status improved and pt was downgraded to med/surg floor. Pt was also refusing am lab draws so it was difficult to trend Na levels 2/2 pt non-compliance. Pt's seizure was also likely 2/2 severe hyponatremia. Neurology was consulted (Dr. Matute). Pt also was managed for long-standing history of dysphagia, likely psychogenic in origin. Pt was advanced to tube feeds via Peg tube after irrigated and unclogged by GI (Dr. Patterson), and was advanced to puree consistency diet as per INSURANCE OPERATIONS REP recs. Pt was also managed for UTI; urine cx 02/22/17 grew E.coli. Pt was treated with Rocephin inpatient, and on discharge given Keflex for additional 3 days of medical therapy. Psych was consulted (Dr. Servin) for pt's agitation/refusal of treatment, who recommended placement in supervised setting. Pt as per their impression did not demonstrate imminent threat to self or others. Pt was also managed for fungal rash at pannus and under breast folds with Nystatin cream. Per PT recs pt was eligible for [facility] for placement. After discussion with pt and pt's family, pt refused to go to [facility] and pt's family agreed that they would rather have the pt at home after hospital discharge. Risks of refusing [facility] for further therapy were discussed with pt's family, and they chose to have pt discharged to home. Pt was instructed to f/u with PMD Dr. Galdamez within 3-5 days of hospital discharge. Was also instructed to f/u with Dr. Zuniga and outpatient Psychiatry, both within 1 week of discharge, respectfully. Pt's family was educated on importance of keeping Peg tube cleaned and daily flushes, and only advised to place approved tube feeds through the Peg tube, not baby food. For further details of hospital admission, please refer to hospital EMR. Discharge Exam - Head Exam Head Exam: NORMAL INSPECTION - Eye Exam Eye Exam: EOMI, Normal appearance, PERRL - ENT Exam ENT Exam: Mucous Membranes Moist - Respiratory Exam Respiratory Exam: Clear to PA & Lateral, NORMAL BREATHING PATTERN, UNREMARKABLE - Cardiovascular Exam Cardiovascular Exam: REGULAR RHYTHM, +S1, +S2. absent: Gallop, Rubs, Systolic Murmur - GI/Abdominal Exam GI & Abdominal Exam: Normal Bowel Sounds, Soft, Unremarkable. absent: Tenderness - Extremities Exam Extremities exam: full ROM, normal capillary refill, normal inspection, pedal pulses present - Neurological Exam Additional comments: AAOx1 - Skin Skin Exam: Dry, Intact, Normal Color, Warm Discharge Plan - Discharge Medications Prescriptions: Cephalexin [cephalexin] 500 mg PO BID #6 cap - Follow Up Plan Condition: GUARDED Disposition: HOME/ ROUTINE Instructions: Dysphagia, Type 2 Diabetes, Preventing Falls in the Older Adult, Hyponatremia (DC) Additional Instructions: Please follow up with your care doctor, Dr. Galdamez, within 3-5 days of discharge. Patient should be on tube feeds. Do not place anything in the Peg tube other than Jevity for tube feeds. Do not put medication through peg. Patient should NOT have more than 2 liters of fluid through Peg tube AND mouth daily. This extra fluid will lower her sodium level. Very low sodium levels can cause seizures. Please follow up with nephrology, Dr. Zuniga, within 1 week of discharge. Patient can eat through mouth as pleasure feeds. Recommend a PUREE DIET WITH THIN LIQUIDS. Home medications include: 1. Bacitracin 1 gram TOPICAL NEEDED AROUND PEG SITE FOR IRRITATION 2. Nystatin powder 1 gram TWICE PER DAY NEEDED for REDNESS IN SKIN FOLDS 3. Synthroid 25mcg PER MOUTH ONCE DAILY (FOR THYROID) 4. Lipitor 10mg PER MOUTH DAILY (FOR CHOLESTEROL) 5. Keflex 500 mg BY MOUTH TWICE DAILY for 3 more days. STOP TAKING METOPROLOL. Recommend for patient to follow up with psychiatry as outpatient within 1 week of discharge. If your symptoms return, please go the nearest emergency department. Referrals: Titi Galdamez MD [Family Provider] - Linden Zuniga MD [Staff Provider] - <Leon Blanton - Last Filed: 02/27/18 13:00> Provider - Provider Date of Admission: 02/15/18 02:57 Attending physician: Kristan Hilliard DO Consults: 02/15/18 04:09 Nephrology Consult Routine Comment: Consulting Provider: Linden Zuniga Consulting Physician: Linden Zuniga Reason for Consult: hyponatremia 02/15/18 07:07 Gastroenterology Consult Routine Comment: Consulting Provider: Washington Patterson V Consulting Physician: Washington Patterson V Reason for Consult: peg tube dysfunction, gastroparesis 02/15/18 07:26 Neurology Consult Routine Comment: Consulting Provider: Alex Matute Consulting Physician: Alex Matute Reason for Consult: Encephalopathy / Lethargy - Post-Ictal 2/2 HoNa Sz 02/17/18 06:50 Psychiatry Consult Routine Comment: Consulting Provider: Jennie Servin Consulting Physician: Jennie Servin Reason for Consult: questionable mental capacity 02/18/18 08:55 TCU [Evaluation for TRCU] Routine Comment: Physician Instructions: Reason For Exam: strengthening Hospital Course - Lab Results Lab Results: Micro Results 02/22/18 14:30 Blood Blood Culture - Preliminary NO GROWTH AFTER 4 DAYS 02/22/18 14:00 Blood Blood Culture - Preliminary NO GROWTH AFTER 4 DAYS 02/22/18 00:30 Urine,Clean Catch Urine Culture - Final Escherichia Coli 12/30/18 10:00 Blood Blood Culture - Final NO GROWTH AFTER 5 DAYS 02/17/18 10:00 Blood Gram Stain - Final TEST NOT PERFORMED 02/17/18 10:00 Blood Blood Culture - Final NO GROWTH AFTER 5 DAYS 02/17/18 10:00 Blood Gram Stain - Final TEST NOT PERFORMED 02/15/18 07:00 Naris MRSA Culture (Admit) - Final MRSA NOT DETECTED 02/15/18 03:37 Urine,Daniel Urine Culture - Final No Growth (<1,000 CFU/ML) Most Recent Lab Values WBC 7.5 10^3/uL (4.5-11.0) 02/22/18 15:30 RBC 4.40 10^6/uL (3.5-6.1) 02/22/18 15:30 Hgb 11.5 g/dL (12.0-16.0) L 02/22/18 15:30 Hct 36.6 % (36.0-48.0) 02/22/18 15:30 MCV 83.2 fl (80.0-105.0) 02/22/18 15:30 MCH 26.1 pg (25.0-35.0) 02/22/18 15:30 MCHC 31.4 g/dl (31.0-37.0) 02/22/18 15:30 RDW 14.3 % (11.5-14.5) 02/22/18 15:30 Plt Count 337 10^3/uL (120.0-450.0) 02/22/18 15:30 MPV 9.5 fl (7.0-11.0) 02/22/18 15:30 Gran % 67.6 % (50.0-68.0) 02/22/18 15:30 Lymph % (Auto) 20.8 % (22.0-35.0) L 02/22/18 15:30 [place] % (Auto) 9.1 % (1.0-6.0) H 02/22/18 15:30 Eos % (Auto) 2.0 % (1.5-5.0) 02/22/18 15:30 Baso % (Auto) 0.5 % (0.0-3.0) 02/22/18 15:30 Gran # 5.06 (1.4-6.5) 02/22/18 15:30 Lymph # (Auto) 1.6 (1.2-3.4) 02/22/18 15:30 [place] # (Auto) 0.7 (0.1-0.6) H 02/22/18 15:30 Eos # (Auto) 0.2 (0.0-0.7) 02/22/18 15:30 Baso # (Auto) 0.04 K/mm3 (0.0-2.0) 02/22/18 15:30 Neutrophils % (Manual) 84 % (50.0-70.0) H 02/17/18 05:00 Band Neutrophils % 2 % (0-2) 02/17/18 05:00 Lymphocytes % (Manual) 10 % (22.0-35.0) L 02/17/18 05:00 Monocytes % (Manual) 4 % (1.0-6.0) 02/17/18 05:00 Sodium 134 mmol/L (132-148) 02/22/18 15:30 Potassium 4.8 mmol/L (3.6-5.0) 02/22/18 15:30 Chloride 97 mmol/L (98-107) L 02/22/18 15:30 Carbon Dioxide 30 mmol/L (21-33) 02/22/18 15:30 Anion Gap 12 (10-20) 02/22/18 15:30 BUN 26 mg/dL (7-21) H 02/22/18 15:30 Creatinine 0.7 mg/dl (0.7-1.2) 02/22/18 15:30 Est GFR ( Amer) > 60 02/22/18 15:30 Est GFR (Non-Af Amer) > 60 02/22/18 15:30 POC Glucose (mg/dL) 169 mg/dL (65-110) H 02/25/18 13:14 Random Glucose 181 mg/dL (70-110) H 02/22/18 15:30 Hemoglobin A1c 6.6 % (4.2-6.5) H 02/15/18 05:40 Serum Osmolality 254 mosm/kg (272-300) L 02/15/18 05:40 Calcium 8.9 mg/dL (8.4-10.5) 02/22/18 15:30 Phosphorus 3.4 mg/dL (2.5-4.5) 02/18/18 06:40 Magnesium 2.0 mg/dL (1.7-2.2) 02/18/18 06:40 Total Bilirubin 0.2 mg/dL (0.2-1.3) 02/22/18 15:30 AST 16 U/L (14-36) 02/22/18 15:30 ALT 19 U/L (7-56) 02/22/18 15:30 Alkaline Phosphatase 119 U/L (38-126) 02/22/18 15:30 Total Protein 7.5 g/dL (5.8-8.3) 02/22/18 15:30 Albumin 3.8 g/dL (3.0-4.8) 02/22/18 15:30 Globulin 3.8 gm/dL 02/22/18 15:30 Albumin/Globulin Ratio 1.0 (1.1-1.8) L 02/22/18 15:30 Triglycerides 65 mg/dL (35-160) 02/15/18 05:40 Cholesterol 216 mg/dL (130-200) H 02/15/18 05:40 LDL Cholesterol Direct 136 mg/dL (0-129) H 02/15/18 05:40 HDL Cholesterol 51 mg/dL (29-60) 02/15/18 05:40 Procalcitonin < 0.05 NG/ML (0.19-0.49) L 02/22/18 15:30 TSH 3rd Generation 3.33 mIU/mL (0.46-4.68) 02/15/18 05:40 Urine Color Yellow (YELLOW) 02/22/18 00:30 Urine Appearance Sl cloudy (CLEAR) 02/22/18 00:30 Urine pH 6.0 (4.7-8.0) 02/22/18 00:30 Ur Specific [place] 1.015 (1.005-1.035) 02/22/18 00:30 Urine Protein Negative mg/dL (<30 mg/dL) 02/22/18 00:30 Urine Glucose (UA) Negative mg/dL (NEGATIVE) 02/22/18 00:30 Urine Ketones Negative mg/dL (NEGATIVE) 02/22/18 00:30 Urine Blood Trace-intact (NEGATIVE) H 02/22/18 00:30 Urine Nitrate Negative (NEGATIVE) 02/22/18 00:30 Urine Bilirubin Negative (NEGATIVE) 02/22/18 00:30 Urine Urobilinogen 0.2 E.U./dL (<1 E.U./dL) 02/22/18 00:30 Ur Leukocyte Esterase Moderate Nathalia/uL (NEGATIVE) H 02/22/18 00:30 Urine RBC 0 - 2 /hpf (0-2) 02/22/18 00:30 Urine WBC 20 - 25 /hpf (0-6) H 02/22/18 00:30 Ur Epithelial Cells 0 - 2 /hpf (0-5) 02/22/18 00:30 Urine Bacteria Many /hpf (NONE) 02/22/18 00:30 Urine Osmolality 265 mosm/kg (300-1000) L 02/17/18 00:15 Ur Random Sodium 23 meq/L 02/17/18 00:15 Ur Random Potassium 18.5 meq/L 02/15/18 03:37 Attending/Attestation - Attestation I have personally seen and examined this patient.: Yes I have fully participated in the care of the patient.: Yes I have reviewed all pertinent clinical information, including history, physical exam and plan: Yes
[2018-02-26] MEDS ORDERED: Cefpodoxime (Vantin) 200 mg Tab PO SCH (10:00)
== END 2018-02-25 13:57 | disposition home or self-care (01) | DRG 643 ==
LOC: ED 21:59 → ERH 02-15 02:57 → ICU 02-15 06:08 → 5RNO 02-18 13:25
PROVIDERS: ADMIT Internal Medicine; ATTEND Hospitalist
DX: E22.2 Syndrome of inappropriate secretion of antidiuretic hormone (principal); G93.41 Metabolic encephalopathy; G40.89 Other seizures; K94.23 Gastrostomy malfunction; R64 Cachexia; N39.0 Urinary tract infection, site not specified; M48.56XA Collapsed vertebra, not elsewhere classified, lumbar region, initial encounter for fracture; I12.9 Hypertensive chronic kidney disease with stage 1 through stage 4 chronic kidney disease, or unspecified chronic kidney disease; N18.9 Chronic kidney disease, unspecified; E83.42 Hypomagnesemia; E87.6 Hypokalemia; F60.9 Personality disorder, unspecified; E86.0 Dehydration; F31.9 Bipolar disorder, unspecified; B96.20 Unspecified Escherichia coli [E. coli] as the cause of diseases classified elsewhere; E11.22 Type 2 diabetes mellitus with diabetic chronic kidney disease; B36.9 Superficial mycosis, unspecified; F41.0 Panic disorder [episodic paroxysmal anxiety]; E03.9 Hypothyroidism, unspecified; R45.1 Restlessness and agitation; R62.7 Adult failure to thrive; N31.9 Neuromuscular dysfunction of bladder, unspecified; F45.8 Other somatoform disorders; E78.5 Hyperlipidemia, unspecified; H40.9 Unspecified glaucoma; K59.00 Constipation, unspecified; Z68.22 Body mass index [BMI] 22.0-22.9, adult; Z78.1 Physical restraint status

== ENCOUNTER 2018-03-09 15:52 | Observation (INO) | payer MEDICARE, OTHER ==
[2018-03-09 15:53] VITALS: BMI 24.7
[2018-03-09] MEDS ORDERED: Sodium Chloride 0.9% 1,000 ML IV STA (16:44)
[2018-03-09] MEDS ORDERED: Magnesium Citrate Oral SOL (300 ml) PO ONE (16:44)
--- NOTE | 2018-03-09 16:59 | ED PDOC ---
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 Patient reports she has been eating by mouth and through her PEG tube. Patient denies following up with GI Dr. Patterson due to the weather. Patient is a poor historian. Patient denies any fever, chills, cough, chest pain, shortness of breath, diarrhea, urinary symptoms, back pain, neck pain, headache, dizziness, or any other complaints. 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 Time/Duration: Other (7 days) Symptom Onset: Gradual Symptom Course: Unchanged Activities at Onset: Light Context: Home Past Medical History - Provider Review Nursing Documentation Reviewed: Yes - Past History Past History: No Previous - Infectious Disease Hx of Infectious Diseases: None - Tetanus Immunization Tetanus Immunization: Unknown - Reproductive Menopause: Yes - Past Medical History Past Medical History: Non-Contributing - Cardiac Hx Cardiac Disorders: Yes Hx Hypertension: Yes - Pulmonary Hx Respiratory Disorders: No - Neurological Hx Neurological Disorder: No - HEENT Hx Difficulty Chewing: Yes Hx Glaucoma: Yes - Renal Hx Renal Disorder: Yes (URINARY RETENTION 07-10-17) - Endocrine/Metabolic Hx Diabetes Mellitus Type 2: Yes Hx Hypothyroidism: Yes - Hematological/Oncological Hx Blood Disorders: No Hx AIDS: No Hx Anemia: No Hx Cancer: No Hx Chemotherapy: No Hx Cirrhosis: No Hx Hepatitis A: No Hx Hepatitis B: No Hx Hepatitis C: No Hx Metastasis: No Hx Shingles: No Hx Unexplained Bleeding: No - Integumentary Hx Dermatological Disorder: Yes - Musculoskeletal/Rheumatological Hx Musculoskeletal Disorders: Yes Hx Falls: Yes - Gastrointestinal Hx Gastrointestinal Disorders: Yes (PEG MID ABDOMINAL AREA) - Genitourinary/Gynecological Hx Genitourinary Disorders: Yes (C/S X 2) - Psychiatric Hx Psychophysiologic Disorder: Yes Hx Anxiety: Yes Hx Bipolar Disorder: Yes Hx Depression: Yes Hx Panic Disorder: Yes Hx Substance Use: No - Past Surgical History Past Surgical History: No Previous - Surgical History Hx Cardiac Catheterization: Yes - Anesthesia Hx Anesthesia: Yes Hx Anesthesia Reactions: No Hx Malignant Hyperthermia: No - Suicidal Assessment Feels Threatened In Home Enviroment: No Family/Social History - Physician Review Nursing Documentation Reviewed: Yes Family/Social History: No Known Family HX Smoking Status: Unknown If Ever Smoked Hx Alcohol Use: No Hx Substance Use: No Hx Substance Use Treatment: No Allergies/Home Meds Allergies/Adverse Reactions: Allergies No Known Allergies Allergy (Verified 12/30/17 13:22) Home Medications: Home Meds Medication Instructions Recorded Confirmed Levothyroxine [Synthroid] 0 mcg PO 0600 03/09/18 03/09/18 Review of Systems - Physician Review All systems were reviewed & negative as marked: Yes - Review of Systems Constitutional: absent: Fevers, Other (Chills) ENT: Other (trouble swallowing) Respiratory: absent: SOB, Cough Cardiovascular: absent: Chest Pain Gastrointestinal: Nausea, Vomiting. absent: Diarrhea Genitourinary Female: absent: Dysuria, Frequency, Hematuria Musculoskeletal: absent: Back Pain, Neck Pain Neurological: absent: Headache, Dizziness Physical Exam Vital Signs Reviewed: Yes Appearance: Positive for: Well-Appearing, Non-Toxic, Comfortable Pain Distress: None Mental Status: Positive for: Alert and Oriented X 3 - Systems Exam Head: Present: Atraumatic, Normocephalic Pupils: Present: PERRL Extroacular Muscles: Present: EOMI Conjunctiva: Present: Normal Ears: Present: Other (Cerumen in bilateral TM) Mouth: Present: Moist Mucous Membranes Pharnyx: Present: ERYTHEMA (minimal) Nose (Internal): Present: Other (Dry blood in both nares) Neck: Present: Normal Range of Motion Respiratory/Chest: Present: Clear to Auscultation, Good Air Exchange. No: Respiratory Distress, Accessory Muscle Use, Wheezes, Rales, Rhonchi Cardiovascular: Present: Regular Rate and Rhythm, Normal S1, S2. No: Murmurs Abdomen: Present: Tenderness (tenderness around PEG tube site), Feeding Tubes. No: Distention, Peritoneal Signs, Rebound, Guarding, Mass/Organomegaly, Other (no suprapubic tenderness) Back: Present: Normal Inspection. No: CVA Tenderness Upper Extremity: Present: Normal Inspection. No: Cyanosis, Edema Lower Extremity: Present: Temperature Abnormalties (Feet cold to touch), Other (Weak pedal pulses). No: Edema Neurological: Present: GCS=15, CN II-XII Intact, Speech Normal Skin: Present: Warm, Dry, Normal Color. No: Rashes Psychiatric: Present: Alert, Oriented x 3, Normal Insight, Normal Concentration Medical Decision Making ED Course and Treatment: 03/09/18 17:06 Impression: 67 year old female presents complaining of trouble swallowing associated with vomiting and constipation for the past 7 days. Differential Diagnosis included but are not limited to: constipation pharyngitis obstruction Plan: -- Labs -- VBG -- EKG -- CXR -- Citrate of Mag, Pepcid, Reglan, IV Fluids. -- Blood Culture, Urine Culture -- Urinalysis w/ mirco -- Reassess and disposition Prior Visits: Notes and results from previous visits were reviewed. Progress Notes: 03/09/18 18:[address] Beckwith who recommends Abdomen and Pelvis IV Contrast CT. 03/09/18 19:40 Case discussed with caregivers non medical and Dr. Newman who is aware and agrees with the plan. Accepts patient into hospitalist service. - Lab Interpretations I have reviewed the lab results: Yes - RAD Interpretation Narrative RAD Interpretations (Text): EXAM: Chest X-ray Dictator : Rod Menjivar MD Report Date : 03/09/2018 17:17:54 IMPRESSION: No active disease. Radiology Orders: 03/09/18 16:42 CHEST PORTABLE [RAD] Stat Barometers Calibrator: Radiologist - EKG Interpretation EKG Interpretation (Text): 03/09/18 18:20 EKG shows NSR at 68 BPM with peaked T waves in V2-V3. Interpreted by me. Interpreted by ED Physician: Yes Type: 12 lead EKG - Medication Orders Current Medication Orders: Famotidine (Pepcid) 20 mg IVP STAT STA Stop: 03/09/18 16:43 Sodium Chloride (Sodium Chloride 0.9%) 1,000 mls @ 999 mls/hr IV .Q1H1M STA Stop: 03/09/18 17:44 Magnesium Citrate (Citrate Of Mag) 300 ml PO ONCE ONE Stop: 03/09/18 16:45 Metoclopramide HCl (Reglan) 10 mg IVP STAT STA Stop: 03/09/18 16:46 - Scribe Statement The provider has reviewed the documentation as recorded by the Scribe Alaa [place] Provider Raul Attestation: All medical record entries made by the Raul were at my direction and personally dictated by me. I have reviewed the chart and agree that the record accurately reflects my personal performance of the history, physical exam, medical decision making, and the department course for this patient. I have also personally directed, reviewed, and agree with the discharge instructions and disposition. Disposition/Present on Arrival - Present on Arrival History of DVT/PE: No History of Uncontrolled Diabetes: No Urinary Catheter: No History of Decub. Ulcer: No History Surgical Site Infection Following: None - Disposition Forms: [employer] (Panamanian)
[2018-03-09 17:04] LABS: URINE APPEARANCE CLEAR (CLEAR); URINE BILIRUBIN NEGATIVE (NEGATIVE); URINE BLOOD TRACE-INTACT (NEGATIVE); URINE COLOR LIGHT YELLOW (YELLOW); URINE GLUCOSE (UA) NEGATIVE (NEGATIVE); URINE LEUKOCYTE ESTERASE NEGATIVE Leu/uL (NEGATIVE); URINE PROTEIN NEGATIVE mg/dL (<30 mg/dL); URINE UROBILINOGEN 0.2 E.U./dL (<1 E.U./dL)
[2018-03-09 17:08] LABS: BASO # 0.03 K/mm3 (0.0-2.0); BASO % 0.4 % (0.0-3.0); EOS # 0.1 (0.0-0.7); EOS % 0.9 % (1.5-5.0); GRAN # 5.68 (1.4-6.5); GRAN % 71.7 % (50.0-68.0); HEMOGLOBIN 13.1 g/dL (12.0-16.0); LYMPH # 1.6 (1.2-3.4); LYMPH % 20.1 % (22.0-35.0); MEAN CELL VOLUME 83.2 fl (80.0-105.0); MEAN CORPUSCULAR HEMOGLOBIN 26.6 pg (25.0-35.0); MEAN PLATELET VOLUME 10.5 fl (7.0-11.0); MONO # 0.6 (0.1-0.6); MONO % 6.9 % (1.0-6.0); RBC 4.93 10^6/uL (3.5-6.1); RED CELL DISTRIBUTION WIDTH 15.8 % (11.5-14.5); WHITE BLOOD COUNT 7.9 10^3/uL (4.5-11.0)
[2018-03-09 17:14] LABS: URINE RBC 0 - 2 /hpf (0-2)
--- NOTE | 2018-03-09 17:21 | RAD ---
Date of service: 03/09/2018 HISTORY: constipation COMPARISON: 02/21/2018 FINDINGS: LUNGS: No active pulmonary disease. PLEURA: No significant pleural effusion identified, no pneumothorax apparent. CARDIOVASCULAR: No aortic atherosclerotic calcification present. Normal cardiac size. No pulmonary vascular congestion. OSSEOUS STRUCTURES: No significant abnormalities. VISUALIZED UPPER ABDOMEN: Normal. OTHER FINDINGS: None. IMPRESSION: No active disease.
[2018-03-09 17:41] LABS: VENOUS BLOOD GAS BASE EXCESS 5.7 mmol/L (0.0-2.0); VENOUS BLOOD GAS PO2 36 mm/Hg (30-55); VENOUS BLOOD PH 7.39 (7.32-7.43)
[2018-03-09 17:51] LABS: INR 0.99; PROTHROMBIN TIME 11.3 SECONDS (9.4-12.5)
[2018-03-09 17:54] LABS: ALBUMIN 4.1 g/dL (3.0-4.8); ALT/SGPT 16 U/L (7-56); AST/SGOT 20 U/L (14-36); BLOOD UREA NITROGEN 27 mg/dL (7-21); CALCIUM 9.5 mg/dL (8.4-10.5); GFR NON-AFRICAN AMERICAN > 60; LIPASE 86 U/L (23-300)
[2018-03-09 18:04] LABS: TROPONIN I < 0.01 ng/mL
[2018-03-09] MEDS ORDERED: Iohexol 350 MG/100 ML VIAL ONE (18:55)
[2018-03-09] MEDS ORDERED: POLYETHYLENE GLYCOL 3350 17 GM/Dose PACKET PO PRN (21:34)
[2018-03-09] MEDS: Insulin Lispro (humaLOG) LOW Coverage SC SCH (22:36)
[2018-03-09 23:09] LABS: FREE T4 0.82 ng/dL (0.78-2.19); T4 7.9 ug/dL (5.5-11.0)
--- NOTE | 2018-03-09 23:26 | CP.PCM.HP ---
<Rios Spivey - Last Filed: 03/10/18 08:04> History of Present Illness - History of Present Illness History of Present Illness: Rios Spivey DO, PGY1. H&P for Dr. Newman CC: constipation x7 days 67 y/o [place] speaking female with PMH of HTN, DM, hypothyroidism, hyponatremia, cachexia and odynophagia s/p PEG tube placement presents from home to the ED for constipation x7 days. She reports 2 episodes of NBNB vomiting in the past 2 weeks. She reports poor oral intake and G-tube in place and functional but reports not using it. He reports fatigue and generalized muscle weakness due to inadequate nutrition. She denied chest pain, palpitations, SOB, urinary symptoms, focal neurologic symptoms. 12 points ROS reviewed with pertinent positives above Pmhx: HTN, DM, hypothyroidism, hyponatremia, cachexia and odynophagia s/p PEG tube placement Pshx: PEG Tube placement Meds: Lactulose 10 mg PO daily, Vitamin D2 50,000 units PO Q7D, MVM, Potassium All: NKDA SH: Denied tobacco hx, denies etoh or illicit drug use Fam Hx: non contributory Present on Admission - Present on Admission Any Indicators Present on Admission: No Past Patient History - Infectious Disease Hx of Infectious Diseases: None - Tetanus Immunizations Tetanus Immunization: Unknown - Past Medical History & Family History Past Medical History?: Yes - Past Social History Smoking Status: Unknown If Ever Smoked - CARDIAC Hx Cardiac Disorders: Yes Hx Hypertension: Yes - PULMONARY Hx Respiratory Disorders: No - NEUROLOGICAL Hx Neurological Disorder: No - HEENT Hx Difficulty Chewing: Yes Hx Glaucoma: Yes - RENAL Hx Chronic Kidney Disease: Yes (URINARY RETENTION 07-10-17) - ENDOCRINE/METABOLIC Hx Diabetes Mellitus Type 2: Yes Hx Hypothyroidism: Yes - HEMATOLOGICAL/ONCOLOGICAL Hx Blood Disorders: No Hx AIDS: No Hx Anemia: No Hx Cancer: No Hx Chemotherapy: No Hx Cirrhosis: No Hx Hepatitis A: No Hx Hepatitis B: No Hx Hepatitis C: No Hx Metastesis: No Hx Shingles: No Hx Unexplained Bleeding: No - INTEGUMENTARY Hx Dermatological Problems: Yes - MUSCULOSKELETAL/RHEUMATOLOGICAL Hx Musculoskeletal Disorders: Yes Hx Falls: Yes - GASTROINTESTINAL Hx Gastrointestinal Disorders: Yes (PEG MID ABDOMINAL AREA) - GENITOURINARY/GYNECOLOGICAL Hx Genitourinary Disorders: Yes (C/S X 2) - PSYCHIATRIC Hx Psychophysiologic Disorder: Yes Hx Anxiety: Yes Hx Bipolar Disorder: Yes Hx Depression: Yes Hx Panic Symptoms: Yes Hx Substance Use: No - SURGICAL HISTORY Hx Cardiac Catheterization: Yes - ANESTHESIA Hx Anesthesia: Yes Hx Anesthesia Reactions: No Hx Malignant Hyperthermia: No Meds Home Medications: Home Medication List Medication Instructions Recorded Confirmed Type Nut.tx.gluc.intoler,Lac-Fr,Soy 1 reema PEG TID #30 reema 03/11/18 Rx [Glucerna 1.5 Mike 237 ml] RX: Atorvastatin [Lipitor] 10 mg PO DIN #30 tab 03/11/18 Rx RX: Lisinopril [Zestril] 5 mg PO DAILY #14 tablet 03/11/18 Rx RX: Nystatin [Mycostatin Cream] 0 g TOP TID #1 tube 03/11/18 Rx RX: Polyethylene Glycol 3350 17 gm PO DAILY PRN #5 packet 03/11/18 Rx [Miralax] Allergies/Adverse Reactions: Allergies Allergy/AdvReac Type Severity Reaction Status Date / Time No Known Allergies Allergy Verified 12/30/17 13:22 Physical Exam - Constitutional Appears: Well, No Acute Distress - Head Exam Head Exam: ATRAUMATIC, NORMAL INSPECTION, NORMOCEPHALIC - Eye Exam Eye Exam: EOMI, Normal appearance, PERRL Pupil Exam: NORMAL ACCOMODATION, PERRL - ENT Exam ENT Exam: Mucous Membranes Moist, Normal Exam - Neck Exam Neck exam: Positive for: Normal Inspection - Respiratory Exam Respiratory Exam: Clear to Auscultation Bilateral, NORMAL BREATHING PATTERN. absent: Rales, Rhonchi, Wheezes - Cardiovascular Exam Cardiovascular Exam: REGULAR RHYTHM, +S1, +S2. absent: Gallop, Rubs - GI/Abdominal Exam GI & Abdominal Exam: Normal Bowel Sounds, Soft. absent: Tenderness Additional comments: G-tube in place. mild erythema/skin exfoliation around the site. no signs of infection - Extremities Exam Extremities exam: Positive for: normal inspection - Neurological Exam Neurological exam: Alert, Oriented x3 - Psychiatric Exam Psychiatric exam: Anxious, Depressed - Skin Skin Exam: Dry, Warm Results - Vital Signs Recent Vital Signs: Last Vital Signs Temp 98.1 F 03/09/18 16:05 Pulse 77 03/09/18 22:44 Resp 17 03/09/18 22:44 BP 155/83 H 03/09/18 22:44 Pulse Ox 97 03/09/18 22:44 - Labs Result Diagrams: 03/09/18 17:01 03/09/18 17:38 Labs: Laboratory Results - last 24 hr 03/09/18 03/09/18 03/09/18 17:01 17:01 17:31 WBC 7.9 RBC 4.93 Hgb 13.1 Hct 41.0 MCV 83.2 MCH 26.6 MCHC 32.0 RDW 15.8 H Plt Count 407 MPV 10.5 Gran % 71.7 H Lymph % (Auto) 20.1 L [place] % (Auto) 6.9 H Eos % (Auto) 0.9 L Baso % (Auto) 0.4 Gran # 5.68 Lymph # (Auto) 1.6 [place] # (Auto) 0.6 Eos # (Auto) 0.1 Baso # (Auto) 0.03 PT INR APTT pO2 VBG pH VBG pCO2 VBG HCO3 VBG Total CO2 VBG O2 Sat (Calc) VBG Base Excess VBG Potassium Sodium Chloride Glucose Lactate FiO2 Potassium Carbon Dioxide Anion Gap BUN Creatinine Est GFR ( Amer) Est GFR (Non-Af Amer) POC Glucose (mg/dL) 110 Random Glucose Calcium Phosphorus Magnesium Total Bilirubin AST ALT Alkaline Phosphatase Troponin I Total Protein Albumin Globulin Albumin/Globulin Ratio Lipase Free T4 Thyroxine (T4) Venous Blood Potassium Urine Color Light yellow Urine Appearance Clear Urine pH 7.0 Ur Specific [place] 1.010 Urine Protein Negative Urine Glucose (UA) Negative Urine Ketones Negative Urine Blood Trace-intact H Urine Nitrate Negative Urine Bilirubin Negative Urine Urobilinogen 0.2 Ur Leukocyte Esterase Negative Urine RBC 0 - 2 Urine WBC None Ur Epithelial Cells None Urine Other Utrans 03/09/18 03/09/18 03/09/18 17:38 17:38 17:38 WBC RBC Hgb Hct MCV MCH MCHC RDW Plt Count MPV Gran % Lymph % (Auto) [place] % (Auto) Eos % (Auto) Baso % (Auto) Gran # Lymph # (Auto) [place] # (Auto) Eos # (Auto) Baso # (Auto) PT 11.3 INR 0.99 APTT 27.0 pO2 36 VBG pH 7.39 VBG pCO2 53.0 VBG HCO3 32.1 H VBG Total CO2 33.7 H VBG O2 Sat (Calc) 75.3 H VBG Base Excess 5.7 H VBG Potassium 4.3 Sodium 137 135.0 Chloride 99 99.0 Glucose 118 H Lactate 0.8 FiO2 21.0 Potassium 4.6 Carbon Dioxide 29 Anion Gap 13 BUN 27 H Creatinine 0.6 L Est GFR ( Amer) > 60 Est GFR (Non-Af Amer) > 60 POC Glucose (mg/dL) Random Glucose 115 H Calcium 9.5 Phosphorus Magnesium Total Bilirubin 0.2 AST 20 ALT 16 Alkaline Phosphatase 140 H Troponin I < 0.01 Total Protein 8.4 H Albumin 4.1 Globulin 4.3 Albumin/Globulin Ratio 1.0 L Lipase 86 Free T4 Thyroxine (T4) Venous Blood Potassium 4.3 Urine Color Urine Appearance Urine pH Ur Specific [place] Urine Protein Urine Glucose (UA) Urine Ketones Urine Blood Urine Nitrate Urine Bilirubin Urine Urobilinogen Ur Leukocyte Esterase Urine RBC Urine WBC Ur Epithelial Cells Urine Other 03/09/18 03/09/18 21:35 22:37 WBC RBC Hgb Hct MCV MCH MCHC RDW Plt Count MPV Gran % Lymph % (Auto) [place] % (Auto) Eos % (Auto) Baso % (Auto) Gran # Lymph # (Auto) [place] # (Auto) Eos # (Auto) Baso # (Auto) PT INR APTT pO2 VBG pH VBG pCO2 VBG HCO3 VBG Total CO2 VBG O2 Sat (Calc) VBG Base Excess VBG Potassium Sodium Chloride Glucose Lactate FiO2 Potassium Carbon Dioxide Anion Gap BUN Creatinine Est GFR ( Amer) Est GFR (Non-Af Amer) POC Glucose (mg/dL) Random Glucose Calcium Phosphorus 4.2 Magnesium 1.9 Total Bilirubin AST ALT Alkaline Phosphatase Troponin I Total Protein Albumin Globulin Albumin/Globulin Ratio Lipase Free T4 0.82 Thyroxine (T4) 7.9 Venous Blood Potassium Urine Color Urine Appearance Urine pH Ur Specific [place] Urine Protein Urine Glucose (UA) Urine Ketones Urine Blood Urine Nitrate Urine Bilirubin Urine Urobilinogen Ur Leukocyte Esterase Urine RBC Urine WBC Ur Epithelial Cells Urine Other Assessment & Plan - Assessment and Plan (Free Text) Assessment: 67 y/o [place] speaking female with PMH of HTN, DM, hypothyroidism, hyponatremia, cachexia and odynophagia s/p PEG tube placement presents to the ED for constipation x7 days Plan: Constipation: -f/u CT A/P w/IV contrast -Mg citrate Intertrigo: -in pannus and under the breast -Nystatin cream h/o dysphagia /cachexia s/p PEG tube: -G tube in place with no signs of infection. -GI consulted, Dr Patterson h/o DM: - HgbA1c -accucheck h/o HTN/HLD: -strated lopressor 12.5mg BID -continue home med lipitor h/o hypothyroidism: -continue home med synthroid 25 mcg -TSH Prophylaxis: - GI: Protonix - DVT: SCDs Case reviewed and plan discussed with Dr Paty Spivey, DO <Jamia Newman - Last Filed: 03/14/18 04:03> Results - Vital Signs Recent Vital Signs: Last Vital Signs Temp 98.0 F 03/09/18 23:10 Pulse 71 03/09/18 23:10 Resp 20 03/10/18 03:06 BP 153/88 H 03/09/18 23:10 Pulse Ox 96 03/09/18 23:10 - Labs Result Diagrams: 03/11/18 07:45 03/11/18 07:45 Labs: Laboratory Results - last 24 hr 03/09/18 03/09/18 03/09/18 17:01 17:01 17:31 WBC 7.9 RBC 4.93 Hgb 13.1 Hct 41.0 MCV 83.2 MCH 26.6 MCHC 32.0 RDW 15.8 H Plt Count 407 MPV 10.5 Gran % 71.7 H Lymph % (Auto) 20.1 L [place] % (Auto) 6.9 H Eos % (Auto) 0.9 L Baso % (Auto) 0.4 Gran # 5.68 Lymph # (Auto) 1.6 [place] # (Auto) 0.6 Eos # (Auto) 0.1 Baso # (Auto) 0.03 PT INR APTT pO2 VBG pH VBG pCO2 VBG HCO3 VBG Total CO2 VBG O2 Sat (Calc) VBG Base Excess VBG Potassium Sodium Chloride Glucose Lactate FiO2 Potassium Carbon Dioxide Anion Gap BUN Creatinine Est GFR ( Amer) Est GFR (Non-Af Amer) POC Glucose (mg/dL) 110 Random Glucose Calcium Phosphorus Magnesium Total Bilirubin AST ALT Alkaline Phosphatase Troponin I Total Protein Albumin Globulin Albumin/Globulin Ratio Lipase Free T4 Thyroxine (T4) TSH 3rd Generation Venous Blood Potassium Urine Color Light yellow Urine Appearance Clear Urine pH 7.0 Ur Specific [place] 1.010 Urine Protein Negative Urine Glucose (UA) Negative Urine Ketones Negative Urine Blood Trace-intact H Urine Nitrate Negative Urine Bilirubin Negative Urine Urobilinogen 0.2 Ur Leukocyte Esterase Negative Urine RBC 0 - 2 Urine WBC None Ur Epithelial Cells None Urine Other Utrans 03/09/18 03/09/18 03/09/18 17:38 17:38 17:38 WBC RBC Hgb Hct MCV MCH MCHC RDW Plt Count MPV Gran % Lymph % (Auto) [place] % (Auto) Eos % (Auto) Baso % (Auto) Gran # Lymph # (Auto) [place] # (Auto) Eos # (Auto) Baso # (Auto) PT 11.3 INR 0.99 APTT 27.0 pO2 36 VBG pH 7.39 VBG pCO2 53.0 VBG HCO3 32.1 H VBG Total CO2 33.7 H VBG O2 Sat (Calc) 75.3 H VBG Base Excess 5.7 H VBG Potassium 4.3 Sodium 137 135.0 Chloride 99 99.0 Glucose 118 H Lactate 0.8 FiO2 21.0 Potassium 4.6 Carbon Dioxide 29 Anion Gap 13 BUN 27 H Creatinine 0.6 L Est GFR ( Amer) > 60 Est GFR (Non-Af Amer) > 60 POC Glucose (mg/dL) Random Glucose 115 H Calcium 9.5 Phosphorus Magnesium Total Bilirubin 0.2 AST 20 ALT 16 Alkaline Phosphatase 140 H Troponin I < 0.01 Total Protein 8.4 H Albumin 4.1 Globulin 4.3 Albumin/Globulin Ratio 1.0 L Lipase 86 Free T4 Thyroxine (T4) TSH 3rd Generation Venous Blood Potassium 4.3 Urine Color Urine Appearance Urine pH Ur Specific [place] Urine Protein Urine Glucose (UA) Urine Ketones Urine Blood Urine Nitrate Urine Bilirubin Urine Urobilinogen Ur Leukocyte Esterase Urine RBC Urine WBC Ur Epithelial Cells Urine Other 03/09/18 03/09/18 03/09/18 21:35 22:34 22:37 WBC RBC Hgb Hct MCV MCH MCHC RDW Plt Count MPV Gran % Lymph % (Auto) [place] % (Auto) Eos % (Auto) Baso % (Auto) Gran # Lymph # (Auto) [place] # (Auto) Eos # (Auto) Baso # (Auto) PT INR APTT pO2 VBG pH VBG pCO2 VBG HCO3 VBG Total CO2 VBG O2 Sat (Calc) VBG Base Excess VBG Potassium Sodium Chloride Glucose Lactate FiO2 Potassium Carbon Dioxide Anion Gap BUN Creatinine Est GFR ( Amer) Est GFR (Non-Af Amer) POC Glucose (mg/dL) 136 H Random Glucose Calcium Phosphorus 4.2 Magnesium 1.9 Total Bilirubin AST ALT Alkaline Phosphatase Troponin I Total Protein Albumin Globulin Albumin/Globulin Ratio Lipase Free T4 0.82 Thyroxine (T4) 7.9 TSH 3rd Generation 1.86 Venous Blood Potassium Urine Color Urine Appearance Urine pH Ur Specific [place] Urine Protein Urine Glucose (UA) Urine Ketones Urine Blood Urine Nitrate Urine Bilirubin Urine Urobilinogen Ur Leukocyte Esterase Urine RBC Urine WBC Ur Epithelial Cells Urine Other 03/09/18 03/10/18 23:38 06:46 WBC RBC Hgb Hct MCV MCH MCHC RDW Plt Count MPV Gran % Lymph % (Auto) [place] % (Auto) Eos % (Auto) Baso % (Auto) Gran # Lymph # (Auto) [place] # (Auto) Eos # (Auto) Baso # (Auto) PT INR APTT pO2 VBG pH VBG pCO2 VBG HCO3 VBG Total CO2 VBG O2 Sat (Calc) VBG Base Excess VBG Potassium Sodium Chloride Glucose Lactate FiO2 Potassium Carbon Dioxide Anion Gap BUN Creatinine Est GFR ( Amer) Est GFR (Non-Af Amer) POC Glucose (mg/dL) 109 133 H Random Glucose Calcium Phosphorus Magnesium Total Bilirubin AST ALT Alkaline Phosphatase Troponin I Total Protein Albumin Globulin Albumin/Globulin Ratio Lipase Free T4 Thyroxine (T4) TSH 3rd Generation Venous Blood Potassium Urine Color Urine Appearance Urine pH Ur Specific [place] Urine Protein Urine Glucose (UA) Urine Ketones Urine Blood Urine Nitrate Urine Bilirubin Urine Urobilinogen Ur Leukocyte Esterase Urine RBC Urine WBC Ur Epithelial Cells Urine Other Attending/Attestation - Attestation I have personally seen and examined this patient.: Yes I have fully participated in the care of the patient.: Yes I have reviewed all pertinent clinical information: Yes Notes (Text): 03/10/18 06:57 Patient was seen when she was in the ER . Agree with history, physical examination, assessment and plan.
[2018-03-10] MEDS: Metoprolol Succinate 25 mg XL Tab PO SCH ×3 (02:43→17:16)
[2018-03-10] MEDS ORDERED: Pneumococcal 23-Valent Vaccine IM ONE (03:05)
[2018-03-10] MEDS ORDERED: Influenza Vaccine 60 mcg/0.5 mL SYR (4YR UP) IM ONE (03:05)
[2018-03-10] MEDS: Insulin Lispro (humaLOG) LOW Coverage SC SCH ×5 (07:32→22:21)
--- NOTE | 2018-03-10 08:47 | CT ---
Date of service: 03/09/2018 PROCEDURE: CT Abdomen and Pelvis with contrast HISTORY: PEG tube with h/o constipation COMPARISON: 02/16/2018 TECHNIQUE: Contrast dose: 100 mL Omnipaque 350 Radiation dose: Total exam DLP = 544.13 mGy-cm. This CT exam was performed using one or more of the following dose reduction techniques: Automated exposure control, adjustment of the mA and/or kV according to patient size, and/or use of iterative reconstruction technique. FINDINGS: LOWER THORAX: Unremarkable. LIVER: Unremarkable. No gross lesion or ductal dilatation. GALLBLADDER AND BILE DUCTS: Unremarkable. PANCREAS: Unremarkable. No gross lesion or ductal dilatation. SPLEEN: Unremarkable. ADRENALS: Unremarkable. No mass. KIDNEYS AND URETERS: Unremarkable. No hydronephrosis. No solid mass. VASCULATURE: Unremarkable. No aortic aneurysm. There is atherosclerotic calcification of the abdominal aorta. BOWEL: No bowel obstruction. No abnormal bowel loops. Percutaneous gastrostomy tube noted with balloon apparently situated in gastric lumen. APPENDIX: Normal appendix. PERITONEUM: Unremarkable. No free fluid. No free air. LYMPH NODES: Unremarkable. No enlarged lymph nodes. BLADDER: Unremarkable. Limited evaluation due to beam hardening artifact arising from right hip prosthesis. REPRODUCTIVE: Normal postmenopausal uterus BONES: No acute fracture. Stable mild compression deformity of the superior L1 vertebral endplate. OTHER FINDINGS: None. IMPRESSION: No acute abnormality. Gastrostomy tube noted. Old mild compression deformity superior L1 vertebral endplate. The preliminary findings for this examination were reported by [facility] at 8:08 p.m. on 03/09/2018. There is concurrence of this report with the preliminary findings.
[2018-03-10] MEDS: Levothyroxine 25 MCG TAB PO SCH (09:45)
[2018-03-10] MEDS: Nystatin 100,000 Units/gm Cream(15 gm) TOP SCH ×3 (11:58→17:18)
--- NOTE | 2018-03-10 14:50 | CP.PCM.CON ---
History of Present Illness - History of Present Illness History of Present Illness: Gastroenterology Fellow/PGY6 Consult Note 67 year old female with PMH of hyponatremia with suspicion for SIADH, hypothyroidism, HTN, DM, PUD 09/2016, and dysphagia s/p PEG tube placement 06/13/17 presenting with constipation. Patient is a poor historian despite use of [place]ian interpretor and is oriented to person, place, and time on questioning Patient endorses no bowel movement for one week leading to presentation. Endorses that she eats by mouth without nausea or vomiting. Patient also insists that she no longer has used the feeding tube but is unable to quanitify for what duratiion or give appropriate history to when the tube was placed. Patient notes many bowel movements since last night into this morning and states she feels much better. Denies abdominal pain, melena, hematochezia, or unintentional weight loss. Prior EGD 06/13/2017 for PEG tube replacement due to dysphagia. No prior colonoscopy. Family History- patient unable to confirm Social History- denies tobacco, alcohol, or illicit drug use Surgical History- right hip prosthesis 07/2017, Review of Systems - Review of Systems Review of Systems: 12-point review of systems negative except for as above Past Patient History - Infectious Disease Hx of Infectious Diseases: None - Tetanus Immunizations Tetanus Immunization: Unknown - Past Medical History & Family History Past Medical History?: Yes - Past Social History Smoking Status: Unknown If Ever Smoked - CARDIAC Hx Hypertension: Yes - PULMONARY Hx Respiratory Disorders: No - NEUROLOGICAL Hx Neurological Disorder: No - HEENT Hx Difficulty Chewing: Yes Hx Glaucoma: Yes - RENAL Hx Chronic Kidney Disease: Yes (URINARY RETENTION 07-10-17) - ENDOCRINE/METABOLIC Hx Diabetes Mellitus Type 2: Yes Hx Hypothyroidism: Yes - HEMATOLOGICAL/ONCOLOGICAL Hx Blood Disorders: No Hx AIDS: No Hx Anemia: No Hx Cancer: No Hx Chemotherapy: No Hx Cirrhosis: No Hx Hepatitis A: No Hx Hepatitis B: No Hx Hepatitis C: No Hx Metastesis: No Hx Shingles: No Hx Unexplained Bleeding: No - INTEGUMENTARY Hx Dermatological Problems: Yes - MUSCULOSKELETAL/RHEUMATOLOGICAL Hx Musculoskeletal Disorders: Yes Hx Falls: Yes - GASTROINTESTINAL Hx Gastrointestinal Disorders: Yes (PEG MID ABDOMINAL AREA) - GENITOURINARY/GYNECOLOGICAL Hx Genitourinary Disorders: Yes (C/S X 2) - PSYCHIATRIC Hx Psychophysiologic Disorder: Yes Hx Anxiety: Yes Hx Bipolar Disorder: Yes Hx Depression: Yes Hx Panic Symptoms: Yes Hx Substance Use: No - SURGICAL HISTORY Hx Cardiac Catheterization: Yes - ANESTHESIA Hx Anesthesia: Yes Hx Anesthesia Reactions: No Hx Malignant Hyperthermia: No Meds Allergies/Adverse Reactions: Allergies Allergy/AdvReac Type Severity Reaction Status Date / Time No Known Allergies Allergy Verified 12/30/17 13:22 - Medications Medications: Current Medications Atorvastatin Calcium (Lipitor) 10 mg PO DIN [facility] Insulin Human Lispro (Humalog Low) 0 units SC ACHS [facility]; Protocol Last Admin: 03/10/18 11:57 Dose: 1 unit Levothyroxine Sodium (Synthroid) 25 mcg PO 0600 [facility] Last Admin: 03/10/18 09:45 Dose: 25 mcg Metoprolol Succinate (Toprol Xl) 12.5 mg PO BID [facility] Last Admin: 03/10/18 09:46 Dose: 12.5 mg Nystatin (Mycostatin Cream) 0 ea TOP TID [facility] Last Admin: 03/10/18 11:58 Dose: 1 appl Ondansetron HCl (Zofran Inj) 4 mg IVP Q4H PRN PRN Reason: Nausea/Vomiting Pantoprazole Sodium (Protonix Inj) 40 mg IVP DAILY [facility] Last Admin: 03/10/18 09:46 Dose: 40 mg Polyethylene Glycol (Miralax) 17 gm PO DAILY PRN PRN Reason: Constipation Physical Exam - Constitutional Appears: Non-toxic, No Acute Distress - Head Exam Head Exam: ATRAUMATIC, NORMOCEPHALIC - Eye Exam Eye Exam: EOMI, PERRL. absent: Scleral icterus Pupil Exam: PERRL. absent: Miosis, Mydriatic - ENT Exam ENT Exam: Mucous Membranes Moist, Normal Oropharynx - Neck Exam Neck exam: Positive for: Full Rom, Normal Inspection - Respiratory Exam Respiratory Exam: Clear to Auscultation Bilateral. absent: Rales, Rhonchi, Wheezes - Cardiovascular Exam Cardiovascular Exam: RRR, +S1, +S2. absent: Gallop, Rubs - GI/Abdominal Exam GI & Abdominal Exam: Normal Bowel Sounds, Soft. absent: Distended, Firm, Guarding, Organomegaly, Rebound, Rigid, Tenderness Additional comments: PEG tube LUQ, insertion site C/D/I - Extremities Exam Extremities exam: Positive for: normal inspection. Negative for: pedal edema - Neurological Exam Neurological exam: Alert, Oriented x3 - Psychiatric Exam Psychiatric exam: Normal Affect, Normal Mood - Skin Skin Exam: Dry, Intact, Normal Color, Warm Results - Vital Signs Recent Vital Signs: Last Vital Signs Temp 97.7 F 03/10/18 06:00 Pulse 72 03/10/18 09:46 Resp 18 03/10/18 06:00 BP 146/84 03/10/18 09:46 Pulse Ox 98 03/10/18 06:00 - Labs Result Diagrams: 03/09/18 17:01 03/09/18 17:38 Labs: Laboratory Results - last 24 hr 03/09/18 03/09/18 03/09/18 17:01 17:01 17:31 WBC 7.9 RBC 4.93 Hgb 13.1 Hct 41.0 MCV 83.2 MCH 26.6 MCHC 32.0 RDW 15.8 H Plt Count 407 MPV 10.5 Gran % 71.7 H Lymph % (Auto) 20.1 L [place] % (Auto) 6.9 H Eos % (Auto) 0.9 L Baso % (Auto) 0.4 Gran # 5.68 Lymph # (Auto) 1.6 [place] # (Auto) 0.6 Eos # (Auto) 0.1 Baso # (Auto) 0.03 PT INR APTT pO2 VBG pH VBG pCO2 VBG HCO3 VBG Total CO2 VBG O2 Sat (Calc) VBG Base Excess VBG Potassium Sodium Chloride Glucose Lactate FiO2 Potassium Carbon Dioxide Anion Gap BUN Creatinine Est GFR ( Amer) Est GFR (Non-Af Amer) POC Glucose (mg/dL) 110 Random Glucose Calcium Phosphorus Magnesium Total Bilirubin AST ALT Alkaline Phosphatase Troponin I Total Protein Albumin Globulin Albumin/Globulin Ratio Lipase Procalcitonin Free T4 Thyroxine (T4) TSH 3rd Generation Venous Blood Potassium Urine Color Light yellow Urine Appearance Clear Urine pH 7.0 Ur Specific [place] 1.010 Urine Protein Negative Urine Glucose (UA) Negative Urine Ketones Negative Urine Blood Trace-intact H Urine Nitrate Negative Urine Bilirubin Negative Urine Urobilinogen 0.2 Ur Leukocyte Esterase Negative Urine RBC 0 - 2 Urine WBC None Ur Epithelial Cells None Urine Other Utrans 03/09/18 03/09/18 03/09/18 17:38 17:38 17:38 WBC RBC Hgb Hct MCV MCH MCHC RDW Plt Count MPV Gran % Lymph % (Auto) [place] % (Auto) Eos % (Auto) Baso % (Auto) Gran # Lymph # (Auto) [place] # (Auto) Eos # (Auto) Baso # (Auto) PT 11.3 INR 0.99 APTT 27.0 pO2 36 VBG pH 7.39 VBG pCO2 53.0 VBG HCO3 32.1 H VBG Total CO2 33.7 H VBG O2 Sat (Calc) 75.3 H VBG Base Excess 5.7 H VBG Potassium 4.3 Sodium 137 135.0 Chloride 99 99.0 Glucose 118 H Lactate 0.8 FiO2 21.0 Potassium 4.6 Carbon Dioxide 29 Anion Gap 13 BUN 27 H Creatinine 0.6 L Est GFR ( Amer) > 60 Est GFR (Non-Af Amer) > 60 POC Glucose (mg/dL) Random Glucose 115 H Calcium 9.5 Phosphorus Magnesium Total Bilirubin 0.2 AST 20 ALT 16 Alkaline Phosphatase 140 H Troponin I < 0.01 Total Protein 8.4 H Albumin 4.1 Globulin 4.3 Albumin/Globulin Ratio 1.0 L Lipase 86 Procalcitonin Free T4 Thyroxine (T4) TSH 3rd Generation Venous Blood Potassium 4.3 Urine Color Urine Appearance Urine pH Ur Specific [place] Urine Protein Urine Glucose (UA) Urine Ketones Urine Blood Urine Nitrate Urine Bilirubin Urine Urobilinogen Ur Leukocyte Esterase Urine RBC Urine WBC Ur Epithelial Cells Urine Other 03/09/18 03/09/18 03/09/18 21:35 22:34 22:37 WBC RBC Hgb Hct MCV MCH MCHC RDW Plt Count MPV Gran % Lymph % (Auto) [place] % (Auto) Eos % (Auto) Baso % (Auto) Gran # Lymph # (Auto) [place] # (Auto) Eos # (Auto) Baso # (Auto) PT INR APTT pO2 VBG pH VBG pCO2 VBG HCO3 VBG Total CO2 VBG O2 Sat (Calc) VBG Base Excess VBG Potassium Sodium Chloride Glucose Lactate FiO2 Potassium Carbon Dioxide Anion Gap BUN Creatinine Est GFR ( Amer) Est GFR (Non-Af Amer) POC Glucose (mg/dL) 136 H Random Glucose Calcium Phosphorus 4.2 Magnesium 1.9 Total Bilirubin AST ALT Alkaline Phosphatase Troponin I Total Protein Albumin Globulin Albumin/Globulin Ratio Lipase Procalcitonin Free T4 0.82 Thyroxine (T4) 7.9 TSH 3rd Generation 1.86 Venous Blood Potassium Urine Color Urine Appearance Urine pH Ur Specific [place] Urine Protein Urine Glucose (UA) Urine Ketones Urine Blood Urine Nitrate Urine Bilirubin Urine Urobilinogen Ur Leukocyte Esterase Urine RBC Urine WBC Ur Epithelial Cells Urine Other 03/09/18 03/09/18 03/10/18 22:45 23:38 06:46 WBC RBC Hgb Hct MCV MCH MCHC RDW Plt Count MPV Gran % Lymph % (Auto) [place] % (Auto) Eos % (Auto) Baso % (Auto) Gran # Lymph # (Auto) [place] # (Auto) Eos # (Auto) Baso # (Auto) PT INR APTT pO2 VBG pH VBG pCO2 VBG HCO3 VBG Total CO2 VBG O2 Sat (Calc) VBG Base Excess VBG Potassium Sodium Chloride Glucose Lactate FiO2 Potassium Carbon Dioxide Anion Gap BUN Creatinine Est GFR ( Amer) Est GFR (Non-Af Amer) POC Glucose (mg/dL) 109 133 H Random Glucose Calcium Phosphorus Magnesium Total Bilirubin AST ALT Alkaline Phosphatase Troponin I Total Protein Albumin Globulin Albumin/Globulin Ratio Lipase Procalcitonin < 0.05 L Free T4 Thyroxine (T4) TSH 3rd Generation Venous Blood Potassium Urine Color Urine Appearance Urine pH Ur Specific [place] Urine Protein Urine Glucose (UA) Urine Ketones Urine Blood Urine Nitrate Urine Bilirubin Urine Urobilinogen Ur Leukocyte Esterase Urine RBC Urine WBC Ur Epithelial Cells Urine Other 03/10/18 11:20 WBC RBC Hgb Hct MCV MCH MCHC RDW Plt Count MPV Gran % Lymph % (Auto) [place] % (Auto) Eos % (Auto) Baso % (Auto) Gran # Lymph # (Auto) [place] # (Auto) Eos # (Auto) Baso # (Auto) PT INR APTT pO2 VBG pH VBG pCO2 VBG HCO3 VBG Total CO2 VBG O2 Sat (Calc) VBG Base Excess VBG Potassium Sodium Chloride Glucose Lactate FiO2 Potassium Carbon Dioxide Anion Gap BUN Creatinine Est GFR ( Amer) Est GFR (Non-Af Amer) POC Glucose (mg/dL) 195 H Random Glucose Calcium Phosphorus Magnesium Total Bilirubin AST ALT Alkaline Phosphatase Troponin I Total Protein Albumin Globulin Albumin/Globulin Ratio Lipase Procalcitonin Free T4 Thyroxine (T4) TSH 3rd Generation Venous Blood Potassium Urine Color Urine Appearance Urine pH Ur Specific [place] Urine Protein Urine Glucose (UA) Urine Ketones Urine Blood Urine Nitrate Urine Bilirubin Urine Urobilinogen Ur Leukocyte Esterase Urine RBC Urine WBC Ur Epithelial Cells Urine Other Assessment & Plan - Assessment and Plan (Free Text) Assessment: 67 year old female with PMH of hyponatremia with suspicion for SIADH, hypothyroidism, HTN, DM, PUD 09/2016, and dysphagia s/p PEG tube placement 06/13/17 presenting with constipation. Prior EGD 06/13/2017 for PEG tube replacement due to dysphagia. No prior colonoscopy. Plan: -constipation resolved after Mg citrate administration -increase fiber and water intake -recommend Miralax daily -puree diet as tolerated with bolus feeding supplementation to meet nutrition goals as needed -would benefit from outpatient colonoscopy for colorectal cancer screening
[2018-03-11] MEDS: Levothyroxine 25 MCG TAB PO SCH (05:44)
--- NOTE | 2018-03-11 07:52 | CARD ---
APPROVED REPORT Date of service: 03/09/2018 EKG Measurement Heart [id number] <Conclusion> Normal sinus rhythm Minimal voltage criteria for LVH, may be normal variant Borderline ECG
[2018-03-11 07:56] LABS: BASO # 0.05 K/mm3 (0.0-2.0); EOS # 0.1 (0.0-0.7); EOS % 2.4 % (1.5-5.0); GRAN # 2.6 (1.4-6.5); GRAN % 52.7 % (50.0-68.0); HEMOGLOBIN 12.1 g/dL (12.0-16.0); LYMPH # 1.7 (1.2-3.4); MEAN CELL VOLUME 84.2 fl (80.0-105.0); MEAN CORPUSCULAR HEMOGLOBIN 26.6 pg (25.0-35.0); MEAN CORPUSCULAR HGB CONC 31.6 g/dl (31.0-37.0); MEAN PLATELET VOLUME 9.6 fl (7.0-11.0); MONO # 0.4 (0.1-0.6); MONO % 8.9 % (1.0-6.0); RBC 4.55 10^6/uL (3.5-6.1); RED CELL DISTRIBUTION WIDTH 15.7 % (11.5-14.5); WHITE BLOOD COUNT 4.9 10^3/uL (4.5-11.0)
[2018-03-11 08:01] VITALS: BP 165/88; RESP 18; TEMP 97.6; O2SAT 98
[2018-03-11 08:15] LABS: ALBUMIN 3.8 g/dL (3.0-4.8); ALT/SGPT 21 U/L (7-56); AST/SGOT 19 U/L (14-36); BLOOD UREA NITROGEN 19 mg/dL (7-21); CALCIUM 9.2 mg/dL (8.4-10.5); GFR NON-AFRICAN AMERICAN > 60
[2018-03-11] MEDS: Insulin Lispro (humaLOG) LOW Coverage SC SCH ×3 (08:57→16:40)
[2018-03-11] MEDS: Nystatin 100,000 Units/gm Cream(15 gm) TOP SCH ×3 (10:50→18:52)
[2018-03-11 11:16] VITALS: PULSE 62
--- NOTE | 2018-03-11 18:11 | CP.PCM.DIS ---
<Nestor Valverde - Last Filed: 03/11/18 18:45> Provider - Provider Date of Admission: 03/09/18 19:40 Attending physician: Rell Resendez MD Consults: 03/09/18 21:38 Case Management Referral Routine Comment: Physician Instructions: Reason For Exam: EVALUATION Reason for Referral: Csr Eval Social Work Referral Routine Comment: evaluation Physician Instructions: Reason For Exam: Evaluation 03/10/18 01:52 Physician Consult Routine Comment: Consulting Provider: Washington Patterson V Consulting Physician: Washington Patterson V Reason for Consult: constipation x7 days. h/o odynophagia, G-tube in place 03/10/18 03:05 Inpatient BILLING CONTROL CLERK Core Measures Referral Routine Comment: Physician Instructions: Reason For Exam: met criteria Transition In Care/Readmission Reduction Routine Comment: Physician Instructions: Reason For Exam: met criteria 03/10/18 03:10 Diabetic Education Referral Routine Comment: Physician Instructions: Reason For Exam: met criteria 03/10/18 03:13 Nursing Referral for Palliative Care Routine Comment: Physician Instructions: Reason For Exam: met criteria 03/11/18 11:51 Psychiatry Consult Routine Comment: Consulting Provider: Jennie Servin Consulting Physician: Jennie Servin Reason for Consult: severe emotional d/o Time Spent in preparation of Discharge (in minutes): 45 Diagnosis - Discharge Diagnosis (1) Constipation Status: Resolved Hospital Course - Lab Results Lab Results: Micro Results 03/09/18 17:38 Blood-Venous Blood Culture - Preliminary NO GROWTH AFTER 48 HOURS 03/09/18 16:30 Blood-Venous Blood Culture - Preliminary NO GROWTH AFTER 48 HOURS 03/09/18 17:01 Urine,Catheterized Urine Culture - Final No Growth (<1,000 CFU/ML) Most Recent Lab Values WBC 4.9 10^3/uL (4.5-11.0) D 03/11/18 07:45 RBC 4.55 10^6/uL (3.5-6.1) 03/11/18 07:45 Hgb 12.1 g/dL (12.0-16.0) 03/11/18 07:45 Hct 38.3 % (36.0-48.0) 03/11/18 07:45 MCV 84.2 fl (80.0-105.0) 03/11/18 07:45 MCH 26.6 pg (25.0-35.0) 03/11/18 07:45 MCHC 31.6 g/dl (31.0-37.0) 03/11/18 07:45 RDW 15.7 % (11.5-14.5) H 03/11/18 07:45 Plt Count 354 10^3/uL (120.0-450.0) 03/11/18 07:45 MPV 9.6 fl (7.0-11.0) 03/11/18 07:45 Gran % 52.7 % (50.0-68.0) 03/11/18 07:45 Lymph % (Auto) 35.0 % (22.0-35.0) 03/11/18 07:45 Evangeline % (Auto) 8.9 % (1.0-6.0) H 03/11/18 07:45 Eos % (Auto) 2.4 % (1.5-5.0) 03/11/18 07:45 Baso % (Auto) 1.0 % (0.0-3.0) 03/11/18 07:45 Gran # 2.60 (1.4-6.5) 03/11/18 07:45 Lymph # (Auto) 1.7 (1.2-3.4) 03/11/18 07:45 Evangeline # (Auto) 0.4 (0.1-0.6) 03/11/18 07:45 Eos # (Auto) 0.1 (0.0-0.7) 03/11/18 07:45 Baso # (Auto) 0.05 K/mm3 (0.0-2.0) 03/11/18 07:45 PT 11.3 SECONDS (9.4-12.5) 03/09/18 17:38 INR 0.99 03/09/18 17:38 APTT 27.0 Seconds (25.1-36.5) 03/09/18 17:38 pO2 36 mm/Hg (30-55) 03/09/18 17:38 VBG pH 7.39 (7.32-7.43) 03/09/18 17:38 VBG pCO2 53.0 (40-60) 03/09/18 17:38 VBG HCO3 32.1 mmol/l (21-28) H 03/09/18 17:38 VBG Total CO2 33.7 mmol.L (22-28) H 03/09/18 17:38 VBG O2 Sat (Calc) 75.3 % (40-65) H 03/09/18 17:38 VBG Base Excess 5.7 mmol/L (0.0-2.0) H 03/09/18 17:38 VBG Potassium 4.3 mmol/L (3.6-5.2) 03/09/18 17:38 Sodium 135.0 mmol/L (132-148) 03/09/18 17:38 Chloride 99.0 mmol/L (98-107) 03/09/18 17:38 Glucose 118 mg/dl (65-105) H 03/09/18 17:38 Lactate 0.8 mmol/L (0.7-2.1) 03/09/18 17:38 FiO2 21.0 % 03/09/18 17:38 Sodium 135 mmol/L (132-148) 03/11/18 07:45 Potassium 4.9 mmol/L (3.6-5.0) 03/11/18 07:45 Chloride 99 mmol/L (98-107) 03/11/18 07:45 Carbon Dioxide 29 mmol/L (21-33) 03/11/18 07:45 Anion Gap 12 (10-20) 03/11/18 07:45 BUN 19 mg/dL (7-21) 03/11/18 07:45 Creatinine 0.6 mg/dl (0.7-1.2) L 03/11/18 07:45 Est GFR ( Amer) > 60 03/11/18 07:45 Est GFR (Non-Af Amer) > 60 03/11/18 07:45 POC Glucose (mg/dL) 130 mg/dL (65-110) H 03/11/18 16:20 Random Glucose 175 mg/dL (70-110) H 03/11/18 07:45 Calcium 9.2 mg/dL (8.4-10.5) 03/11/18 07:45 Phosphorus 4.2 mg/dL (2.5-4.5) 03/09/18 21:35 Magnesium 1.9 mg/dL (1.7-2.2) 03/09/18 21:35 Total Bilirubin 0.4 mg/dL (0.2-1.3) 03/11/18 07:45 AST 19 U/L (14-36) 03/11/18 07:45 ALT 21 U/L (7-56) 03/11/18 07:45 Alkaline Phosphatase 110 U/L (38-126) 03/11/18 07:45 Troponin I < 0.01 ng/mL 03/09/18 17:38 Total Protein 7.7 g/dL (5.8-8.3) 03/11/18 07:45 Albumin 3.8 g/dL (3.0-4.8) 03/11/18 07:45 Globulin 3.9 gm/dL 03/11/18 07:45 Albumin/Globulin Ratio 1.0 (1.1-1.8) L 03/11/18 07:45 Lipase 86 U/L (23-300) 03/09/18 17:38 Procalcitonin < 0.05 NG/ML (0.19-0.49) L 03/09/18 22:45 Free T4 0.82 ng/dL (0.78-2.19) 03/09/18 22:37 Thyroxine (T4) 7.9 ug/dL (5.5-11.0) 03/09/18 22:37 TSH 3rd Generation 1.86 mIU/mL (0.46-4.68) 03/09/18 22:37 Venous Blood Potassium 4.3 mmol/L (3.6-5.2) 03/09/18 17:38 Urine Color Light yellow (YELLOW) 03/09/18 17:01 Urine Appearance Clear (CLEAR) 03/09/18 17:01 Urine pH 7.0 (4.7-8.0) 03/09/18 17:01 Ur Specific Brandywine 1.010 (1.005-1.035) 03/09/18 17:01 Urine Protein Negative mg/dL (<30 mg/dL) 03/09/18 17:01 Urine Glucose (UA) Negative mg/dL (NEGATIVE) 03/09/18 17:01 Urine Ketones Negative mg/dL (NEGATIVE) 03/09/18 17:01 Urine Blood Trace-intact (NEGATIVE) H 03/09/18 17:01 Urine Nitrate Negative (NEGATIVE) 03/09/18 17:01 Urine Bilirubin Negative (NEGATIVE) 03/09/18 17:01 Urine Urobilinogen 0.2 E.U./dL (<1 E.U./dL) 03/09/18 17:01 Ur Leukocyte Esterase Negative Nathalia/uL (NEGATIVE) 03/09/18 17:01 Urine RBC 0 - 2 /hpf (0-2) 03/09/18 17:01 Urine WBC None /hpf (0-6) 03/09/18 17:01 Ur Epithelial Cells None /hpf (0-5) 03/09/18 17:01 Urine Other Utrans /hpf 03/09/18 17:01 - Hospital Course Hospital Course: Upon admission: 67 y/o Singaporean speaking female with PMH of HTN, DM, hypothyroidism, hyponatremia, cachexia and odynophagia s/p PEG tube placement presented from home to the ED for constipation x7 days. She reported 2 episodes of NBNB vomiting in the past 2 weeks. She reported poor oral intake and G-tube in place and functional but reported not using it. She reports fatigue and generalized muscle weakness due to inadequate nutrition. Hospital Course: Upon interview, pt reports she cannot eat, howeverpt has been tolerating her diet well, without any nausea or vomiting or dysphagia, and was seen eating solid food. She repeatedly points at her throat, but eat full meals without any dysphagia. PEG was examined, and is patent and flushed. She was seen by PT who recommended home PT w/ services. Dr. Patterson had evaluated pt, however pt became upset with physician and refused to be seen by physician. Upon Discharge: Pt is feeling better, tolerating her diet, passing stool. Vital signs are stable. Labs wnl. Attempts to contact family members were made multiple times by several staff members without response Discharge Exam - Head Exam Head Exam: ATRAUMATIC, NORMOCEPHALIC - Eye Exam Eye Exam: EOMI, Normal appearance - ENT Exam ENT Exam: Mucous Membranes Moist - Neck Exam Neck exam: Normal Inspection - Respiratory Exam Respiratory Exam: UNREMARKABLE - Cardiovascular Exam Cardiovascular Exam: REGULAR RHYTHM, +S1, +S2 - GI/Abdominal Exam GI & Abdominal Exam: Soft. absent: Tenderness Additional comments: PEG tube in LUQ, insertion site C/D/I - Extremities Exam Extremities exam: normal inspection - Back Exam Back exam: NORMAL INSPECTION - Neurological Exam Neurological exam: Alert, Oriented x3 - Psychiatric Exam Psychiatric exam: Normal Affect, Normal Mood - Skin Skin Exam: Dry, Intact, Warm Discharge Plan - Discharge Medications Prescriptions: Lisinopril [Zestril] 5 mg PO DAILY #14 tablet Nut.tx.gluc.intoler,Lac-Fr,Soy [Glucerna 1.5 Mike 237 ml] 1 reema PEG TID #30 reema Nystatin [Mycostatin Cream] 0 g TOP TID #1 tube Polyethylene Glycol 3350 [Miralax] 17 gm PO DAILY PRN #5 packet PRN Reason: Constipation - Follow Up Plan Condition: STABLE Disposition: HOME/ ROUTINE Instructions: Constipation in Adults, Flu, Adult (DC), Pneumonia, Adult (DC), Influenza Virus Vaccine (Live/Attenuated), Acute Abdominal Pain (DC), Acute Abdominal Pain (GEN) Additional Instructions: -Please follow up with your primary care physician within 5 days. -You must follow up with a Oyster Bed Worker for evaluation of your PEG tube, and for elective outpatient colonoscopy. -You are being prescribed Lisinopril for your blood pressure. Please see your primary care physician for follow up and refills. -On your last visit, your Hemoglobin A1C, the number used to diagnose Diabetes, was mildly elevated. For now, you should make lifestyle changes in decreasing your sugar and carbohydrate intake, as well as exercising with cardiovascular training for at least 30 minutes 3-5 times a week. Please follow up with your primary care physician. -Since you are having trouble swallowing right now, a problem you have had in the past, we have given you a prescription for Glucerna, which can be put through your PEG tube. Please use 1 can three times per day. If you continue to have difficulty swallowing, please have your primary care physician refer you to an Ear, Nose, and Throat (ENT) specialist for evaluation. -Please resume all home medications as previously prescribed. -If you experience new concerning or worsening symptoms, please present to the nearest emergency department. Referrals: Titi Galdamez MD [Family Provider] - <Rell Resendez - Last Filed: 03/12/18 14:03> Provider - Provider Date of Admission: 03/09/18 19:40 Attending physician: Rell Resendez MD Consults: 03/09/18 21:38 Case Management Referral Routine Comment: Physician Instructions: Reason For Exam: EVALUATION Reason for Referral: Csr Eval Social Work Referral Routine Comment: evaluation Physician Instructions: Reason For Exam: Evaluation 03/10/18 01:52 Physician Consult Routine Comment: Consulting Provider: Washington Patterson V Consulting Physician: Washington Patterson V Reason for Consult: constipation x7 days. h/o odynophagia, G-tube in place 03/10/18 03:05 Inpatient BILLING CONTROL CLERK Core Measures Referral Routine Comment: Physician Instructions: Reason For Exam: met criteria Transition In Care/Readmission Reduction Routine Comment: Physician Instructions: Reason For Exam: met criteria 03/10/18 03:10 Diabetic Education Referral Routine Comment: Physician Instructions: Reason For Exam: met criteria 03/10/18 03:13 Nursing Referral for Palliative Care Routine Comment: Physician Instructions: Reason For Exam: met criteria 03/11/18 11:51 Psychiatry Consult Routine Comment: Consulting Provider: Jennie Servin Consulting Physician: Jennie Servin Reason for Consult: severe emotional d/o Hospital Course - Lab Results Lab Results: Micro Results 03/09/18 17:38 Blood-Venous Blood Culture - Preliminary NO GROWTH AFTER 48 HOURS 03/09/18 16:30 Blood-Venous Blood Culture - Preliminary NO GROWTH AFTER 48 HOURS 03/09/18 17:01 Urine,Catheterized Urine Culture - Final No Growth (<1,000 CFU/ML) Most Recent Lab Values WBC 4.9 10^3/uL (4.5-11.0) D 03/11/18 07:45 RBC 4.55 10^6/uL (3.5-6.1) 03/11/18 07:45 Hgb 12.1 g/dL (12.0-16.0) 03/11/18 07:45 Hct 38.3 % (36.0-48.0) 03/11/18 07:45 MCV 84.2 fl (80.0-105.0) 03/11/18 07:45 MCH 26.6 pg (25.0-35.0) 03/11/18 07:45 MCHC 31.6 g/dl (31.0-37.0) 03/11/18 07:45 RDW 15.7 % (11.5-14.5) H 03/11/18 07:45 Plt Count 354 10^3/uL (120.0-450.0) 03/11/18 07:45 MPV 9.6 fl (7.0-11.0) 03/11/18 07:45 Gran % 52.7 % (50.0-68.0) 03/11/18 07:45 Lymph % (Auto) 35.0 % (22.0-35.0) 03/11/18 07:45 Evangeline % (Auto) 8.9 % (1.0-6.0) H 03/11/18 07:45 Eos % (Auto) 2.4 % (1.5-5.0) 03/11/18 07:45 Baso % (Auto) 1.0 % (0.0-3.0) 03/11/18 07:45 Gran # 2.60 (1.4-6.5) 03/11/18 07:45 Lymph # (Auto) 1.7 (1.2-3.4) 03/11/18 07:45 Evangeline # (Auto) 0.4 (0.1-0.6) 03/11/18 07:45 Eos # (Auto) 0.1 (0.0-0.7) 03/11/18 07:45 Baso # (Auto) 0.05 K/mm3 (0.0-2.0) 03/11/18 07:45 PT 11.3 SECONDS (9.4-12.5) 03/09/18 17:38 INR 0.99 03/09/18 17:38 APTT 27.0 Seconds (25.1-36.5) 03/09/18 17:38 pO2 36 mm/Hg (30-55) 03/09/18 17:38 VBG pH 7.39 (7.32-7.43) 03/09/18 17:38 VBG pCO2 53.0 (40-60) 03/09/18 17:38 VBG HCO3 32.1 mmol/l (21-28) H 03/09/18 17:38 VBG Total CO2 33.7 mmol.L (22-28) H 03/09/18 17:38 VBG O2 Sat (Calc) 75.3 % (40-65) H 03/09/18 17:38 VBG Base Excess 5.7 mmol/L (0.0-2.0) H 03/09/18 17:38 VBG Potassium 4.3 mmol/L (3.6-5.2) 03/09/18 17:38 Sodium 135.0 mmol/L (132-148) 03/09/18 17:38 Chloride 99.0 mmol/L (98-107) 03/09/18 17:38 Glucose 118 mg/dl (65-105) H 03/09/18 17:38 Lactate 0.8 mmol/L (0.7-2.1) 03/09/18 17:38 FiO2 21.0 % 03/09/18 17:38 Sodium 135 mmol/L (132-148) 03/11/18 07:45 Potassium 4.9 mmol/L (3.6-5.0) 03/11/18 07:45 Chloride 99 mmol/L (98-107) 03/11/18 07:45 Carbon Dioxide 29 mmol/L (21-33) 03/11/18 07:45 Anion Gap 12 (10-20) 03/11/18 07:45 BUN 19 mg/dL (7-21) 03/11/18 07:45 Creatinine 0.6 mg/dl (0.7-1.2) L 03/11/18 07:45 Est GFR ( Amer) > 60 03/11/18 07:45 Est GFR (Non-Af Amer) > 60 03/11/18 07:45 POC Glucose (mg/dL) 130 mg/dL (65-110) H 03/11/18 16:20 Random Glucose 175 mg/dL (70-110) H 03/11/18 07:45 Calcium 9.2 mg/dL (8.4-10.5) 03/11/18 07:45 Phosphorus 4.2 mg/dL (2.5-4.5) 03/09/18 21:35 Magnesium 1.9 mg/dL (1.7-2.2) 03/09/18 21:35 Total Bilirubin 0.4 mg/dL (0.2-1.3) 03/11/18 07:45 AST 19 U/L (14-36) 03/11/18 07:45 ALT 21 U/L (7-56) 03/11/18 07:45 Alkaline Phosphatase 110 U/L (38-126) 03/11/18 07:45 Troponin I < 0.01 ng/mL 03/09/18 17:38 Total Protein 7.7 g/dL (5.8-8.3) 03/11/18 07:45 Albumin 3.8 g/dL (3.0-4.8) 03/11/18 07:45 Globulin 3.9 gm/dL 03/11/18 07:45 Albumin/Globulin Ratio 1.0 (1.1-1.8) L 03/11/18 07:45 Lipase 86 U/L (23-300) 03/09/18 17:38 Procalcitonin < 0.05 NG/ML (0.19-0.49) L 03/09/18 22:45 Free T4 0.82 ng/dL (0.78-2.19) 03/09/18 22:37 Thyroxine (T4) 7.9 ug/dL (5.5-11.0) 03/09/18 22:37 TSH 3rd Generation 1.86 mIU/mL (0.46-4.68) 03/09/18 22:37 Venous Blood Potassium 4.3 mmol/L (3.6-5.2) 03/09/18 17:38 Urine Color Light yellow (YELLOW) 03/09/18 17:01 Urine Appearance Clear (CLEAR) 03/09/18 17:01 Urine pH 7.0 (4.7-8.0) 03/09/18 17:01 Ur Specific Brandywine 1.010 (1.005-1.035) 03/09/18 17:01 Urine Protein Negative mg/dL (<30 mg/dL) 03/09/18 17:01 Urine Glucose (UA) Negative mg/dL (NEGATIVE) 03/09/18 17:01 Urine Ketones Negative mg/dL (NEGATIVE) 03/09/18 17:01 Urine Blood Trace-intact (NEGATIVE) H 03/09/18 17:01 Urine Nitrate Negative (NEGATIVE) 03/09/18 17:01 Urine Bilirubin Negative (NEGATIVE) 03/09/18 17:01 Urine Urobilinogen 0.2 E.U./dL (<1 E.U./dL) 03/09/18 17:01 Ur Leukocyte Esterase Negative Nathalia/uL (NEGATIVE) 03/09/18 17:01 Urine RBC 0 - 2 /hpf (0-2) 03/09/18 17:01 Urine WBC None /hpf (0-6) 03/09/18 17:01 Ur Epithelial Cells None /hpf (0-5) 03/09/18 17:01 Urine Other Utrans /hpf 03/09/18 17:01 Attending/Attestation - Attestation I have personally seen and examined this patient.: Yes I have fully participated in the care of the patient.: Yes I have reviewed all pertinent clinical information, including history, physical exam and plan: Yes Notes (Text): 03/12/18 13:56 Attending note; Patient seen and examined with resident. Patient is alert and awake. Patient is tolerating pured diet. But complaining of nausea. Trying to retch. No vomiting noted. PEG tube flushed. Started on PEG feeding. Patient is a 67-year-old Singaporean speaking female with PMH of HTN, DM, hypothyroidism, hyponatremia, cachexia and long standing odynophagia s/p PEG tube placement is admitted with abdominal pain and constipation. 1. Throat pain; patient is tolerating diet. No abnormality noted. Speech and swallow evaluation appreciated. 2. Status post PEG tube placement; PEG tube flushed. Started on diet. Prescription for Glucerna given. 3. Complaining of nausea; but no vomiting. 4. Psychiatric disorder with multiple complaints. Psychiatric evaluation appreciated. Patient has attention seeking behavior. Advised to continue PEG feeding. Case discussed with social insurance adviser in detail. Discharge home today. Follow-up with PMD Dr. galdamez. Patient needs close outpatient psychiatric follow-up.
--- NOTE | 2018-03-11 22:06 | CON ---
DATE: 03/09/2018 HISTORY OF PRESENT ILLNESS: The patient is a 67-year-old Chinese female, who was recently admitted with the history of multiple medical admissions and presentations to the ER. Recently admitted on 03/09/2018 after she presents to the ER with her family with complaints of trouble swallowing with episodes of vomiting and constipation for 7 days. Psychiatrist is very familiar with the patient from her multiple presentation from the medical floor as well as her two prior hospitalization in which somatic delusions and anxiety. The patient has been consulted in the past by Dr. Lopez and signed off in the past as she was considered to have a personality disorder. This is the reason why psychiatry is called into her care is due to her history of been very resistant to being discharged medically and again, although patient's presenting complaints improved while she was on the medical floor. She now refuses to be discharged as she says she has trouble with urination. This was never verbalized since she was admitted on 03/09/2018. I met with patient at bedside this morning and she actually presents better than I have ever seen her regarding her coherence, consistency and relevance responses to my questioning. Nonetheless, she is anxious and she continues to have multiple somatic complaints and today is no different. Today, she says she " " and she repeats herself multiple times. Patient reports that she does not feel safe going home because she has not been urinating in general. She denies not wanting to go home because she feels unsafe at home. She does not feel that her family needs her again. She denies feeling depressed, she indicates that she is not crazy. She denies any hallucinations. She does not appear to be responding to internal stimuli. Delusions were not elicited during the course of my conversation with her and today she was a lot more agreeable to psychiatric evaluation she has been in the past. Affect was constricted with some reactivity and is mostly anxiety. Patient appeared to be comfortable, in apparent distress and can be pleasant when her needs are met. Again, she denies having any suicidal thoughts, homicidal thoughts. She denies wanting to . Vital signs were reviewed. Some elevation in her blood pressures, most recently was 165/88. Labs were also reviewed. MEDICATIONS: Patient is not on any current psychiatric medications. PSYCHIATRIC HISTORY: Patient has been hospitalized twice for somatic delusions and anxiety including in May 2016 and January 2016. She was consulted on by Dr. Lopez, who signed off three times as there was no further psychiatric indication for intervention or the patient just refused any psychiatric interventions. 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 Her sodium levels, however, during this admission are within normal limits. SOCIAL HISTORY: The patient is over 30 years to . She has 2 adult children. She lives with her family. Anxiety disorder, somatic delusions, personality disorder, likely component of symptoms with secondary gain versus . RECOMMENDATIONS: Dr. Lopez consultation on 02/21/2018. I would suggest to have family meetings and to have a serious conversation with a placement with the patient as she does very well on the supervised settings and clearly need more attention than she is receiving at the home whether it be psychiatric or medical. At this time, she does have criteria for inpatient psychiatric hospitalization involuntarily and she is refusing for any voluntary help in this regard. At this time, the patient does not post any imminent danger to herself or others and psychiatry will followup; however, will be doing that intermittent basis to ensure patient obtains the best disposition in regards to proper utilization of hospital resources in the future. Next followup will be on 03/13/2018, by Dr. Lopez. Jennie Servin MD
--- NOTE | 2018-03-13 08:34 | CP.PCM.PCO ---
Physician Communication Note - Physician Communication Note Physician Communication Note: pt was discharged
== END 2018-03-11 22:08 | disposition home or self-care (01) ==
LOC: ED 15:52 → ERH 19:40 → 5RSO 23:10
PROVIDERS: ADMIT Internal Medicine; ATTEND Internal Medicine
DX: K59.00 Constipation, unspecified (principal); I12.9 Hypertensive chronic kidney disease with stage 1 through stage 4 chronic kidney disease, or unspecified chronic kidney disease; E11.22 Type 2 diabetes mellitus with diabetic chronic kidney disease; N18.9 Chronic kidney disease, unspecified; R64 Cachexia; E03.9 Hypothyroidism, unspecified; F22 Delusional disorders; F31.9 Bipolar disorder, unspecified; F60.9 Personality disorder, unspecified; H40.9 Unspecified glaucoma; E78.5 Hyperlipidemia, unspecified; R11.2 Nausea with vomiting, unspecified; R13.10 Dysphagia, unspecified; Z93.1 Gastrostomy status
CPT/HCPCS: 36415; 71045; 74177; 80053; 81001; 82803; 82948; 83690; 83735; 84100; 84145; 84439; 84443; 84484; 85025; 85610; 85730; 87040; 87086; 93005; 96361; 96374; 96375; 96376; 97161; 97530; 99285; C9113; G0378; G8978; G8979; J2765; J7030; Q9967